=== PATIENT | male | born 1940 | race Caucasian/White ===

== ENCOUNTER → 2016-05-04 | Outpatient (CLI) | payer OTHER ==
[~2016-05-04] MED LIST: ACCL20 PO; ALBUAER2 INH; BUPRTAB PO; ERGO1CAP35 PO; FENO145T26 PO; FINA5TAB PO; FLNIN NAE; FRS/40 PO; HYD10 PO; HYDR-5688 PO; HYDR20TA3 PO; INSDGI SC; LEVO1TAB33 PO; LEVO75TA5 PO; METO25TA3 PO; METO25TA56 PO; MOME200A INH; OXYC1TAB3 PO; POTA-335 PO; POTA20TA16 PO; PRAV40TA2 PO; SPRIN/30 INH; SYMIN/8045 INH; TIOTCAP INH; TRAM-453 PO; VNTHFA/IN INH; ZOLP5TAB6 PO
[2016-05-04 12:56] LABS: ESTIMATED AVERAGE GLUCOSE 177 mg/dl; HA1C FLAG Normal (Normal)
[2016-05-04 13:29] LABS: ALB/GLOB RATIO 0.9 (0.9-2); ALKALINE PHOSPHATASE 57 U/L (45-117); ALT/SGPT 25 U/L (12-78); AST/SGOT 16 U/L (15-37); BLOOD UREA NITROGEN 18 mg/dl (7-18); CARBON DIOXIDE 24 mmol/L (21-32); CHLORIDE 107 mmol/L (98-107); CHOLESTEROL 198 mg/dl (0-200); CHOLESTEROL/HDL RATIO 6.6; GLUCOSE 45 mg/dl (70-99); HDL CHOLESTEROL 30 mg/dl; LDL CHOLESTEROL CALCULATED 134 mg/dl; POTASSIUM 3.5 mmol/L (3.5-5.1); SODIUM 142 mmol/L (136-145); TRIGLYCERIDES 172 mg/dl (0-150); VERY LOW DENSITY LIPOPROT CALC 34 mg/dl
== END | disposition home or self-care (01) ==
LOC: C.LABBFT 09:22
PROVIDERS: ATTEND Internal Medicine
DX: E78.5 Hyperlipidemia, unspecified (principal); I10 Essential (primary) hypertension; E03.9 Hypothyroidism, unspecified; E11.65 Type 2 diabetes mellitus with hyperglycemia; Z86.39 Personal history of other endocrine, nutritional and metabolic disease

== ENCOUNTER → 2016-05-18 | Outpatient (CLI) | payer OTHER ==
--- NOTE | 2016-05-18 12:06 | DIAGNOSTIC IMAGING REPORT ---
CHEST 2 VIEWS ROUTINE CLINICAL HISTORY: Asthma exacerbation. Shortness of breath. COMPARISON STUDY: Chest radiograph October 23, 2015. FINDINGS: A dual lead left pacemaker is unchanged in position. Moderate cardiomegaly is unchanged. There is no evidence of pulmonary edema. No consolidation is identified. A nipple shadow projects over the right lower lung. There are healed right rib fractures. There is no consolidation to suggest pneumonia. IMPRESSION: 1. No acute findings. 2. Stable cardiomegaly. Electronically signed by: Lee Delgado M.D. 05/18/2016 12:04 PM Dictated Date/Time: 05/18/2016 12:03 PM
== END | disposition home or self-care (01) ==
LOC: C.RAD1850 11:48
PROVIDERS: ATTEND Internal Medicine
DX: J45.901 Unspecified asthma with (acute) exacerbation (principal); I51.7 Cardiomegaly

== ENCOUNTER → 2016-05-19 | Outpatient (CLI) | payer OTHER ==
[2016-05-19 15:59] LABS: IMMUNOGLOBULN M 27.3 mg/dL (40-230)
== END | disposition home or self-care (01) ==
LOC: C.LAB1850 13:45
PROVIDERS: ATTEND Internal Medicine Pulmonary Disease
DX: J45.901 Unspecified asthma with (acute) exacerbation (principal); J33.9 Nasal polyp, unspecified; Z88.6 Allergy status to analgesic agent

== ENCOUNTER → 2016-06-21 | Outpatient (CLI) | payer OTHER ==
[~2016-06-21] MED LIST changes: +BACITRACIN 50000 UNIT VIAL ONE; +CEFAZOLIN SOD 1 GM VIAL ONE; +GENTAMICIN SULFATE 40 MG/ML 2 ML VIAL ONE
--- NOTE | 2016-06-21 13:04 | DIAGNOSTIC IMAGING REPORT ---
LEFT KNEE 3 VIEWS HISTORY: Left knee pain. COMPARISON: None. FINDINGS: There is no fracture or dislocation. Suspect a small knee effusion. Vascular calcifications are noted. Mild cartilage space narrowing within the medial compartment of the knee consistent with degenerative change. Tiny marginal osteophytes at the patella. No radiopaque foreign bodies. IMPRESSION: No fractures. Suspect a small knee effusion and mild degenerative changes. Electronically signed by: Silviano Vaughn M.D. 06/21/2016 1:03 PM Dictated Date/Time: 06/21/2016 1:00 PM
== END | disposition home or self-care (01) ==
LOC: C.RAD 11:43
PROVIDERS: ATTEND Internal Medicine
DX: M25.562 Pain in left knee (principal)

== ENCOUNTER 2016-10-26 12:26 | Inpatient (IN) | payer OTHER ==
[~2016-10-26] VITALS: Ht 180.3 cm; Wt 94.8 kg
[~2016-10-26 12:26] MED LIST changes: -BACITRACIN 50000 UNIT VIAL ONE; -BUPRTAB PO; -CEFAZOLIN SOD 1 GM VIAL ONE; -GENTAMICIN SULFATE 40 MG/ML 2 ML VIAL ONE; -HYDR-5688 PO; -HYDR20TA3 PO; -METO25TA3 PO; -POTA20TA16 PO; -SPRIN/30 INH; -SYMIN/8045 INH; -VNTHFA/IN INH
[2016-10-26] MEDS ORDERED: INSDGI SC (13:24)
[2016-10-26] MEDS ORDERED: SYMIN/8045 INH (13:24)
[2016-10-26] MEDS ORDERED: HYDR20TA3 PO (13:24)
[2016-10-26] MEDS ORDERED: SPRIN/30 INH (13:24)
[2016-10-26] MEDS ORDERED: BUPRTAB PO (13:24)
[2016-10-26] MEDS ORDERED: METO25TA3 PO (13:24)
[2016-10-26] MEDS ORDERED: VNTHFA/IN INH (13:24)
[2016-10-26] MEDS ORDERED: POTA20TA16 PO (13:24)
--- NOTE | 2016-10-26 13:53 | EMERGENCY ROOM VISIT NOTE ---
History First contact with patient: 13:28 Chief Complaint: DIZZY Stated Complaint: FALL/HEADACHE Nursing Triage Summary: pt arrives via ALS per ALS he felt dizzy, had a witnessed syncopal episode with a short period of altered mental status he was sweating profusely he states he was feeling sick yesterday and just "Odd." He reported for ALS Headache, Nausea and vomited once , EMS gave him 4 of Zofran and 250Ml of Fluid Pt reports history of fluid around heart for which he had a pacemaker placed he recently had his pacemaker evaluated by MD Escamilla with no new findings pt also reports left ankle pain unsure if that happened during episode or not shoe removed +Pedal Pulse and +Cap Refil History of Present Illness The patient is a 76 year old male who presents to the Emergency Room with complaints of not feeling well over the last 3 weeks. The patient has a history of asthma. He does report some increased shortness of breath. She denies any fever or cough. He denies any chest pain, pressure or heart palpitations. The patient does have a cardiac history. He had a pacemaker placed approximately 3 years ago. The patient saw his primary care physician 2 weeks ago. 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 His pacemaker was checked. No abnormalities were noted. He denies any changes in medications. He does note a poor appetite. He also reports a 10 pound weight loss over the last month or so. He denies any abdominal pain, nausea or vomiting. No diarrhea. The patient reports severe fatigue over the last 2 days. He also reports a syncopal episode today. The event was witnessed. He did not strike his head. He does report some left ankle pain. He does not take any blood thinners. Review of Systems 10 system review performed and negative unless noted in HPI or below Past Medical/Surgical History Medical Problems: (1) Asthma (2) Benign hypertension (3) Chronic congestive heart failure (4) Diabetes mellitus (5) Heart disease Family History Hypertension Social History Smoking Status: Former Smoker Alcohol Use: none Drug Use: none Marital Status: Housing Status: lives with significant other Occupation Status: employed Current/Historical Medications Scheduled Budesonide/Formoterol Fumarate (Symbicort 80/4.5 Inhaler), 2 PUFFS INH BID Bupropion Hcl (Wellbutrin Xl), 150 MG PO DAILY Fenofibrate (Tricor ), 145 MG PO HS Finasteride (Proscar), 5 MG PO QAM Furosemide (Lasix), 40 MG PO QAM Hydrocortisone (Cortef), 10 MG PO QPM Hydrocortisone (Cortef), 20 MG PO QAM Insulin Glargine (Lantus), 55 UNITS SC BID Levofloxacin (Levaquin), 500 MG PO QAM Levothyroxine Sodium (Levothyroxine Sodium), 75 MCG PO QAM Metoprolol Succinate (Toprol Xl), 25 MG PO DAILY Mometasone Furoate-Formoterol (Dulera 200/5 Mcg), 2 PUFFS INH BID Potassium Ext Rel (Klor-Con), 20 MEQ PO DAILY Pravastatin Sodium (Pravastatin Sodium), 1 TAB PO QPM Tiotropium Collins (Spiriva Handihaler), 1 CAP INH DAILY Zafirlukast (Zafirlukast), 20 MG PO BID Scheduled PRN Albuterol Hfa (Ventolin Hfa), 2 PUFFS INH QID PRN for Shortness of Breath Oxycodone Ir (Roxicodone Ir), 5 MG PO Q6H PRN for Pain Tramadol Hcl (Ultram), 50 MG PO Q8H PRN for Pain Zolpidem Tartrate (Zolpidem Tartrate), 1 TAB PO HS PRN for Sleep Physical Exam Vital Signs Date Time Temp Pulse Resp B/P (MAP) Pulse Ox O2 Delivery O2 Flow Rate FiO2 10/26/16 18:50 88 18 160/69 97 Room Air 10/26/16 18:19 85 10/26/16 16:51 84 10/26/16 16:10 86 16 157/68 98 Nebulizer 10/26/16 15:46 96 Nasal Cannula 2.0 10/26/16 15:29 88 20 96 Nasal Cannula 2.0 10/26/16 14:15 82 20 138/78 97 Nasal Cannula 3.0 10/26/16 13:46 97 Room Air 2.0 10/26/16 13:46 98 Nasal Cannula 2.0 10/26/16 12:50 79 10/26/16 12:35 37.0 84 16 165/97 98 Room Air Physical Exam VITALS: Vitals are noted on the nurse's note and reviewed by myself. Vital signs stable. GENERAL: 76-year-old male, in no acute distress, nondiaphoretic, well-developed well-nourished. SKIN: The skin was without rashes, HEAD: Normocephalic atraumatic. EYES: Extraocular movements intact. MOUTH: Mucous membranes moist. NECK: No lymphadenopathy. Cervical spine is nontender. No JVD. HEART: Regular rate and rhythm without murmurs gallops or rubs. LUNGS: Decreased breath sounds at the bases bilaterally. No wheezing or rhonchi. Mild tachypnea noted. ABDOMEN: Positive bowel sounds x 4.Soft, nontender, without organomegaly. No guarding or rebound tenderness. MUSCULOSKELETAL: No muscle atrophy, erythema, or edema noted. Slight tenderness to palpation noted over the lateral malleolus on the left lower extremity. No significant edema. Strength 5/5 throughout. NEURO: Patient was alert and oriented to person place and time. Normal sensation to touch. No focal neurological deficits. Medical Decision & Procedures ER Provider Diagnostic Interpretation: CHEST ONE VIEW PORTABLE CLINICAL HISTORY: Dizziness and SOB COMPARISON STUDY: 05/18/2016 FINDINGS: The heart is enlarged. There is a left subclavian dual-chamber central venous pacemaker present. There is no failure. There is no lobar consolidation. Linear basilar opacities are felt to be atelectatic.[ IMPRESSION: No active disease in the chest. Electronically signed by: Star Pro M.D. 10/26/2016 1:59 PM Dictated Date/Time: 10/26/2016 1:58 PM The status of this report is Signed. Draft = Not yet reviewed or approved by Radiologist. Signed = Reviewed and approved by Radiologist. <AttendingPhy></AttendingPhy> <FamilyPhy>Maegan Delgado M.D.</FamilyPhy > <PrimaryPhy>Maegan Delgado M.D.</PrimaryPhy> <UnitNumber>[id number]</ UnitNumber> <VisitNumber>[id number]</VisitNumber> <PatientName>BARBARA NAVARRO</PatientName> <DateOfBirth>1940</DateOfBirth> <Location>[facility]</ Location> <ServiceDate>10/26/16</ServiceDate> <MNE>ESINDI</MNE> <OrderingPhy>ED , PROTOCOL</OrderingPhy> <OrderingPhyMNE>f rep ord dr gardiner</OrderingPhyMNE> < DictatingPhyMNE>f rep dict dr gardiner</DictatingPhyMNE> <CCListMNE>f rep ct mne</ CCListMNE> <AdmittingPhyMNE>f pt admit dr gardiner</AdmittingPhyMNE> <AttendingPhyMNE >f pt attend dr gardiner</AttendingPhyMNE> <ConsultingPhyMNE>f pt consult dr gardiner</ConsultingPhyMNE> <FamilyPhyMNE>f pt fam dr gardiner</FamilyPhyMNE> <OtherPhyMNE>f pt other dr gardiner</OtherPhyMNE> < PrimaryPhyMNE>f pt prim care dr gardiner</PrimaryPhyMNE> <ReferringPhyMNE>f pt referring dr gardiner</ReferringPhyMNE> Laboratory Results 10/26/16 13:58 Red Blood Count 5.21, Mean Corpuscular Volume 87.7, Mean Corpuscular Hemoglobin 29.6, Mean Corpuscular Hemoglobin Concent 33.7, Mean Platelet Volume 10.2, Neutrophils (%) (Auto) 73.8, Lymphocytes (%) (Auto) 12.1, Monocytes (%) (Auto) 6.7, Eosinophils (%) (Auto) 5.6, Basophils (%) (Auto) 0.2, Neutrophils # (Auto) 9.09, Lymphocytes # (Auto) 1.49, Monocytes # (Auto) 0.82, Eosinophils # (Auto) 0.69, Basophils # (Auto) 0.03 10/26/16 13:58 Test 10/26/16 13:58 10/26/16 15:46 White Blood Count 12.32 K/uL (4.8-10.8) Red Blood Count 5.21 M/uL (4.7-6.1) Hemoglobin 15.4 g/dL (14.0-18.0) Hematocrit 45.7 % (42-52) Mean Corpuscular Volume 87.7 fL (80-100) Mean Corpuscular Hemoglobin 29.6 pg (25-34) Mean Corpuscular Hemoglobin Concent 33.7 g/dl (32-36) Platelet Count 319 K/uL (130-400) Mean Platelet Volume 10.2 fL (7.4-10.4) Neutrophils (%) (Auto) 73.8 % Lymphocytes (%) (Auto) 12.1 % Monocytes (%) (Auto) 6.7 % Eosinophils (%) (Auto) 5.6 % Basophils (%) (Auto) 0.2 % Neutrophils # (Auto) 9.09 K/uL (1.4-6.5) Lymphocytes # (Auto) 1.49 K/uL (1.2-3.4) Monocytes # (Auto) 0.82 K/uL (0.11-0.59) Eosinophils # (Auto) 0.69 K/uL (0-0.5) Basophils # (Auto) 0.03 K/uL (0-0.2) RDW Standard Deviation 53.1 fL (36.4-46.3) RDW Coefficient of Variation 16.4 % (11.5-14.5) Immature Granulocyte % (Auto) 1.6 % Immature Granulocyte # (Auto) 0.20 K/uL (0.00-0.02) Prothrombin Time 11.1 SECONDS (9.0-12.0) Prothromb Time International Ratio 1.0 (0.9-1.1) Activated Partial Thromboplast Time 27.5 SECONDS (21.0-31.0) Partial Thromboplastin Ratio 1.1 Anion Gap 8.0 mmol/L (3-11) Est Creatinine Clear Calc Drug Dose 46.1 ml/min Estimated GFR () 47.1 Estimated GFR (Non- 40.7 BUN/Creatinine Ratio 10.6 (10-20) Calcium Level 9.7 mg/dl (8.5-10.1) Total Bilirubin 0.5 mg/dl (0.2-1) Aspartate Amino Transf (AST/SGOT) 9 U/L (15-37) Alanine Aminotransferase (ALT/SGPT) 22 U/L (12-78) Alkaline Phosphatase 66 U/L (45-117) Troponin I < 0.015 ng/ml (0-0.045) Pro-B-Type Natriuretic Peptide 1891 pg/ml (0-1800) Total Protein 7.7 gm/dl (6.4-8.2) Albumin 3.7 gm/dl (3.4-5.0) Globulin 4.0 gm/dl (2.5-4.0) Albumin/Globulin Ratio 0.9 (0.9-2) Arterial Blood pH 7.40 (7.35-7.45) Arterial Blood Partial Pressure CO2 39 mmHg (35-46) Arterial Blood Partial Pressure O2 186 mm/Hg (80-95) Arterial Blood HCO3 24 mmol/L (19-24) Arterial Blood Oxygen Saturation 99.5 % (90-95) Arterial Blood Base Excess -1.0 mEq/L (-9-1.8) Arterial Blood Gas Delivery 2.5L O2 Timothy Test POS (POS) Medications Administered Medications (Trade) Dose Ordered Sig/Laila Route Start Time Stop Time Status Last Admin Dose Admin Albuterol/ Ipratropium (Duoneb) 12 ml ONE ONCE INH 10/26/16 15:00 10/26/16 15:01 DC 10/26/16 15:10 12 ML ECG Comparison ECG Date: Change: BARBARA NAVARRO ID:[id number] 26-OCT-2016 12:50:05 [facility] Atrial-paced rhythm with prolonged AV conduction in a pattern of bigeminy Left axis deviation Right bundle branch block Left ventricular hypertrophy with repolarization abnormality Inferior infarct (cited on or before 23-OCT-2015) Abnormal ECG When compared with ECG of 23-OCT-2015 22:38, Electronic atrial pacemaker has replaced Sinus rhythm bigeminy now present ED Course Patient was seen and examined Vital signs including blood pressure were reviewed medications list was verified with patient Labs were obtained, and a saline lock was established Imaging was performed and reviewed The patient was given an hour-long DuoNeb Upon reassessment, the patient is still hypoxic. The case was discussed with the [facility] [address] hospitalist. They agreed to admit the patient for further workup. Medical Decision Differential diagnosis: Asthma exacerbation, acute hypoxic restrictive failure, pulmonary embolus, Acute myocardial infarction, cardiac arrhythmia, anemia, pneumonia, bronchitis, pericarditis, electrolyte imbalance This patient is a pleasant 76-year-old male that presented to the emergency department with complaints of severe fatigue, syncopal episode and shortness of breath for the last few weeks. On exam, the patient did not have any significant wheezing. He was found to be hypoxic in the low 80s on room air. He does not wear oxygen at home. His chest x-ray did not show any signs of pneumonia. Unfortunately, the patient's renal function is slightly abnormal; therefore, I could not do a CT of the chest today to rule out PE. Ultrasound of his lower extremities was performed, and negative for DVT. Given the patient's acute respiratory failure with hypoxia, the patient will need to be admitted for further workup and treatment. Blood Pressure Screening Blood pressure disposition: Elevated BP felt to be situational Impression Primary Impression: Acute respiratory failure with hypoxia Departure Information Referrals Maegan Delgado M.D. (PCP) Patient Instructions My [facility]
--- NOTE | 2016-10-26 14:00 | DIAGNOSTIC IMAGING REPORT ---
CHEST ONE VIEW PORTABLE CLINICAL HISTORY: Dizziness and SOB COMPARISON STUDY: 05/18/2016 FINDINGS: The heart is enlarged. There is a left subclavian dual-chamber central venous pacemaker present. There is no failure. There is no lobar consolidation. Linear basilar opacities are felt to be atelectatic.[ IMPRESSION: No active disease in the chest. Electronically signed by: Star Pro M.D. 10/26/2016 1:59 PM Dictated Date/Time: 10/26/2016 1:58 PM
[2016-10-26 14:13] LABS: BASO % 0.2 %; BASO ABS # 0.03 K/uL (0-0.2); COMPLETE YES; EOS % 5.6 %; HEMATOCRIT 45.7 % (42-52); IG% 1.6 %; LYMPH % 12.1 %; LYMPH ABS # 1.49 K/uL (1.2-3.4); MEAN CELL VOLUME 87.7 fL (80-100); MEAN CORPUSCULAR HEMOGLOBIN 29.6 pg (25-34); MEAN CORPUSCULAR HGB CONC 33.7 g/dl (32-36); MEAN PLATELET VOLUME 10.2 fL (7.4-10.4); MONO % 6.7 %; NEUT % 73.8 %; PLATELET COUNT 319 K/uL (130-400); RED BLOOD COUNT 5.21 M/uL (4.7-6.1); WHITE BLOOD COUNT 12.32 K/uL (4.8-10.8)
[2016-10-26 14:24] LABS: PARTIAL THROMBOPLASTIN RATIO 1.1; PROTHROMBIN TIME (PATIENT) 11.1 SECONDS (9.0-12.0)
[2016-10-26 14:25] LABS: ALT/SGPT 22 U/L (12-78); AST/SGOT 9 U/L (15-37); BLOOD UREA NITROGEN 17 mg/dl (7-18); BUN/CREATININE RATIO 10.6 (10-20); CALCIUM 9.7 mg/dl (8.5-10.1); CARBON DIOXIDE 25 mmol/L (21-32); CHLORIDE 109 mmol/L (98-107); GLUCOSE 87 mg/dl (70-99); SODIUM 142 mmol/L (136-145)
[2016-10-26 14:39] LABS: ALB/GLOB RATIO 0.9 (0.9-2); ALKALINE PHOSPHATASE 66 U/L (45-117)
--- NOTE | 2016-10-26 14:45 | EMERGENCY ROOM VISIT NOTE ---
ED Visit Note First contact with patient: 13:28 I have seen and examined this patient with Joy Corona and generally agree with the treatment plan as discussed. Problem List Medical Problems: (1) Asthma Status: Chronic (2) Benign hypertension Status: Chronic (3) Chronic congestive heart failure Status: Chronic (4) Diabetes mellitus Status: Chronic (5) Heart disease Status: Chronic Current/Historical Medications Scheduled Budesonide/Formoterol Fumarate (Symbicort 80/4.5 Inhaler), 2 PUFFS INH BID Bupropion Hcl (Wellbutrin Xl), 150 MG PO DAILY Fenofibrate (Tricor ), 145 MG PO HS Finasteride (Proscar), 5 MG PO QAM Furosemide (Lasix), 40 MG PO QAM Hydrocortisone (Cortef), 10 MG PO QPM Hydrocortisone (Cortef), 20 MG PO QAM Insulin Glargine (Lantus), 55 UNITS SC BID Levofloxacin (Levaquin), 500 MG PO QAM Levothyroxine Sodium (Levothyroxine Sodium), 75 MCG PO QAM Metoprolol Succinate (Toprol Xl), 25 MG PO DAILY Mometasone Furoate-Formoterol (Dulera 200/5 Mcg), 2 PUFFS INH BID Potassium Ext Rel (Klor-Con), 20 MEQ PO DAILY Pravastatin Sodium (Pravastatin Sodium), 1 TAB PO QPM Tiotropium Roby (Spiriva Handihaler), 1 CAP INH DAILY Zafirlukast (Zafirlukast), 20 MG PO BID Scheduled PRN Albuterol Hfa (Ventolin Hfa), 2 PUFFS INH QID PRN for Shortness of Breath Oxycodone Ir (Roxicodone Ir), 5 MG PO Q6H PRN for Pain Tramadol Hcl (Ultram), 50 MG PO Q8H PRN for Pain Zolpidem Tartrate (Zolpidem Tartrate), 1 TAB PO HS PRN for Sleep Allergies Coded Allergies: Aspirin (Verified Allergy, Unknown, DOES NOT TAKE D/T ASTHMA, 10/23/15) Vital Signs Date Time Temp Pulse Resp B/P (MAP) Pulse Ox O2 Delivery O2 Flow Rate FiO2 10/26/16 14:15 82 20 138/78 97 Nasal Cannula 3.0 10/26/16 13:46 97 Room Air 2.0 10/26/16 13:46 98 Nasal Cannula 2.0 10/26/16 12:50 79 10/26/16 12:35 37.0 84 16 165/97 98 Room Air Laboratory Results 10/26/16 13:58 Red Blood Count 5.21, Mean Corpuscular Volume 87.7, Mean Corpuscular Hemoglobin 29.6, Mean Corpuscular Hemoglobin Concent 33.7, Mean Platelet Volume 10.2, Neutrophils (%) (Auto) 73.8, Lymphocytes (%) (Auto) 12.1, Monocytes (%) (Auto) 6.7, Eosinophils (%) (Auto) 5.6, Basophils (%) (Auto) 0.2, Neutrophils # (Auto) 9.09, Lymphocytes # (Auto) 1.49, Monocytes # (Auto) 0.82, Eosinophils # (Auto) 0.69, Basophils # (Auto) 0.03 10/26/16 13:58 Test 10/26/16 13:58 White Blood Count 12.32 K/uL (4.8-10.8) Red Blood Count 5.21 M/uL (4.7-6.1) Hemoglobin 15.4 g/dL (14.0-18.0) Hematocrit 45.7 % (42-52) Mean Corpuscular Volume 87.7 fL (80-100) Mean Corpuscular Hemoglobin 29.6 pg (25-34) Mean Corpuscular Hemoglobin Concent 33.7 g/dl (32-36) Platelet Count 319 K/uL (130-400) Mean Platelet Volume 10.2 fL (7.4-10.4) Neutrophils (%) (Auto) 73.8 % Lymphocytes (%) (Auto) 12.1 % Monocytes (%) (Auto) 6.7 % Eosinophils (%) (Auto) 5.6 % Basophils (%) (Auto) 0.2 % Neutrophils # (Auto) 9.09 K/uL (1.4-6.5) Lymphocytes # (Auto) 1.49 K/uL (1.2-3.4) Monocytes # (Auto) 0.82 K/uL (0.11-0.59) Eosinophils # (Auto) 0.69 K/uL (0-0.5) Basophils # (Auto) 0.03 K/uL (0-0.2) RDW Standard Deviation 53.1 fL (36.4-46.3) RDW Coefficient of Variation 16.4 % (11.5-14.5) Immature Granulocyte % (Auto) 1.6 % Immature Granulocyte # (Auto) 0.20 K/uL (0.00-0.02) Prothrombin Time 11.1 SECONDS (9.0-12.0) Prothromb Time International Ratio 1.0 (0.9-1.1) Activated Partial Thromboplast Time 27.5 SECONDS (21.0-31.0) Partial Thromboplastin Ratio 1.1 Anion Gap 8.0 mmol/L (3-11) Est Creatinine Clear Calc Drug Dose 46.1 ml/min Estimated GFR () 47.1 Estimated GFR (Non- 40.7 BUN/Creatinine Ratio 10.6 (10-20) Calcium Level 9.7 mg/dl (8.5-10.1) Total Bilirubin 0.5 mg/dl (0.2-1) Aspartate Amino Transf (AST/SGOT) 9 U/L (15-37) Alanine Aminotransferase (ALT/SGPT) 22 U/L (12-78) Alkaline Phosphatase 66 U/L (45-117) Troponin I < 0.015 ng/ml (0-0.045) Pro-B-Type Natriuretic Peptide 1891 pg/ml (0-1800) Total Protein 7.7 gm/dl (6.4-8.2) Albumin 3.7 gm/dl (3.4-5.0) Globulin 4.0 gm/dl (2.5-4.0) Albumin/Globulin Ratio 0.9 (0.9-2) Departure Information Referrals Maegan Delgado M.D. (PCP) Patient Instructions My [facility]
[2016-10-26] MEDS ORDERED: ALBUT/IPRATROP 3MG/0.5MG NEB 3 ML VIAL INH ONE (15:00)
[2016-10-26 15:29] VITALS: PULSE 88; O2SAT 96
[2016-10-26 15:46] VITALS: O2SAT 96; Ht 180.3 cm; Wt 94.8 kg
[2016-10-26 16:06] LABS: ARTERIAL BLD GAS O2 SATURATION 99.5 % (90-95); ARTERIAL BLOOD GAS HCO3 24 mmol/L (19-24); ARTERIAL BLOOD GAS PO2 186 mm/Hg (80-95)
[2016-10-26 16:07] LABS: ALLEN TEST POS (POS); O2 ADMINISTRATION 2.5L O2
--- NOTE | 2016-10-26 16:07 | DIAGNOSTIC IMAGING REPORT ---
LEFT ANKLE MIN 3 VIEWS ROUTINE CLINICAL HISTORY: Left ankle pain status post trauma COMPARISON: None. DISCUSSION: There are vascular calcifications present. No fractures or subluxations are visualized. There are no erosive or destructive changes. IMPRESSION: 1. No acute fractures 2. Vascular calcifications Electronically signed by: Star Pro M.D. 10/26/2016 4:05 PM Dictated Date/Time: 10/26/2016 4:05 PM
--- NOTE | 2016-10-26 17:34 | DIAGNOSTIC IMAGING REPORT ---
VENOUS DOPPLER LW EXT BILAT HISTORY: Pain. Edema. hypoxic ? DVT COMPARISON STUDY: None. FINDINGS: There is normal compressibility, flow, and augmentation within the bilateral lower extremity deep venous systems. IMPRESSION: No DVT within the right or left lower extremity. The above report was generated using voice recognition software. It may contain grammatical, syntax or spelling errors. Electronically signed by: Kelby Solomon M.D. 10/26/2016 5:33 PM Dictated Date/Time: 10/26/2016 5:32 PM
[2016-10-26] MEDS ORDERED: ONDANSETRON INJ 2 MG/ML 2 ML VIAL IV PRN (21:45)
[2016-10-26] MEDS ORDERED: ZOLPIDEM TARTRATE 5 MG TAB PO PRN (21:45)
[2016-10-26] MEDS ORDERED: MAGNESIUM HYDROXIDE SUSP 30 ML UDC PO PRN (21:45)
[2016-10-26] MEDS ORDERED: OXYCODONE HCL IR 5 MG TAB (IMMEDIATE RELEASE) PO PRN (21:45)
[2016-10-26] MEDS ORDERED: TRAMADOL HCL 50 MG TAB PO PRN (21:45)
[2016-10-26] MEDS ORDERED: ALUMINUM/MAGNESIUM/SIMETH (MAALOX MAX) 30 ML UDC PO PRN (21:45)
[2016-10-26] MEDS ORDERED: ALBUTEROL HFA 8 GM INHALER INH PRN (21:45)
[2016-10-26] MEDS ORDERED: POLYETHYLENE (MIRALAX) 17 GM PACK PO PRN (21:45)
[2016-10-26] MEDS ORDERED: ACETAMINOPHEN 325 MG TAB PO PRN (21:45)
--- NOTE | 2016-10-26 21:59 | History and Physical ---
History & Physical Date & Time of Service: Oct 26, 2016 at 21:59 Chief Complaint: Fall/Headache Primary Care Physician: Maegan Delgado M.D. History of Present Illness Source: patient Mr Greer is a 68-year-old male with history of asthma, diabetes, s/p pacemaker placement who presents with 3 weeks of feeling unwell. He reports he feels like he cannot get a deep breath in. This is made him feel incredibly fatigued and he is unable to do his usual ADLs. About 2 weeks ago he saw his PCP who gave him a prescription for Levaquin and told her to fill it if he was worsening, but he did not fill it. He also saw Dr. Haley his pitch worker who interrogated his pacemaker and reported it was all normal. Earlier today he was with his great-grandson and she also had someone over at his house helping with some housework. He was in the driveway grading is present and then collapsed. The ambulance was called. He woke up and still just felt short of breath. At the moment after nebulizer treatment he feels a little better but not entirely. He reports he never smoked. 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 He reports he was diagnosed with asthma many years ago, and takes multiple inhalers. Over the last few weeks he has been using them on does not find them to be helpful. He does not wear oxygen at home , but has required it since being in the ER. Past Medical/Surgical History Medical Problems: (1) Asthma Status: Chronic (2) Benign hypertension Status: Chronic (3) Chronic congestive heart failure Status: Chronic (4) Diabetes mellitus Status: Chronic (5) Heart disease Status: Chronic Family History Hypertension Social History Smoking Status: Never Smoker Smokeless Tobacco Use: No Alcohol Use: socially Drug Use: none Marital Status: Housing status: lives with family Occupational Status: employed Immunizations History of Influenza Vaccine: Yes Influenza Vaccine Date: Jan 02, 2013 History of Tetanus Vaccine?: UTD History of Pneumococcal: Yes Pneumococcal Date: Jun 18, 2011 History of Hepatitis B Vaccine: No Multi-Drug Resistant Organisms History of MDRO: No Allergies Coded Allergies: Aspirin (Verified Allergy, Unknown, DOES NOT TAKE D/T ASTHMA, 10/23/15) Home Medications Scheduled Budesonide/Formoterol Fumarate (Symbicort 80/4.5 Inhaler), 2 PUFFS INH BID Bupropion Hcl (Wellbutrin Xl), 150 MG PO DAILY Fenofibrate (Tricor ), 145 MG PO HS Finasteride (Proscar), 5 MG PO QAM Furosemide (Lasix), 40 MG PO QAM Hydrocortisone (Cortef), 10 MG PO QPM Hydrocortisone (Cortef), 20 MG PO QAM Insulin Glargine (Lantus), 55 UNITS SC BID Levofloxacin (Levaquin), 500 MG PO QAM Levothyroxine Sodium (Levothyroxine Sodium), 75 MCG PO QAM Metoprolol Succinate (Toprol Xl), 25 MG PO DAILY Mometasone Furoate-Formoterol (Dulera 200/5 Mcg), 2 PUFFS INH BID Potassium Ext Rel (Klor-Con), 20 MEQ PO DAILY Pravastatin Sodium (Pravastatin Sodium), 1 TAB PO QPM Tiotropium Vendor (Spiriva Handihaler), 1 CAP INH DAILY Zafirlukast (Zafirlukast), 20 MG PO BID Scheduled PRN Albuterol Hfa (Ventolin Hfa), 2 PUFFS INH QID PRN for Shortness of Breath Oxycodone Ir (Roxicodone Ir), 5 MG PO Q6H PRN for Pain Tramadol Hcl (Ultram), 50 MG PO Q8H PRN for Pain Zolpidem Tartrate (Zolpidem Tartrate), 1 TAB PO HS PRN for Sleep Review of Systems See HPI for pertinent positives & negatives. A total of 10 systems reviewed and were otherwise negative. Physical Exam Vital Signs Date Time Temp Pulse Resp B/P (MAP) Pulse Ox O2 Delivery O2 Flow Rate FiO2 10/26/16 20:50 87 18 147/70 97 Room Air 10/26/16 18:50 88 18 160/69 97 Room Air 10/26/16 18:19 85 10/26/16 16:51 84 10/26/16 16:10 86 16 157/68 98 Nebulizer 10/26/16 15:46 96 Nasal Cannula 2.0 10/26/16 15:29 88 20 96 Nasal Cannula 2.0 10/26/16 14:15 82 20 138/78 97 Nasal Cannula 3.0 10/26/16 13:46 97 Room Air 2.0 10/26/16 13:46 98 Nasal Cannula 2.0 10/26/16 12:50 79 10/26/16 12:35 37.0 84 16 165/97 98 Room Air General Appearance: WD/WN, + mild distress, + obese Head: normocephalic, atraumatic Eyes: normal inspection, PERRL ENT: hearing grossly normal Neck: supple, no JVD Respiratory/Chest: + pertinent finding (no audible wheeze, but pt has poor inspiratory effort.) Cardiovascular: regular rate, rhythm, no murmur, normal peripheral pulses Abdomen/GI: normal bowel sounds, non tender, soft Back: no CVA tenderness, no muscle spasm Extremities/Musculoskelatal: no calf tenderness, no pedal edema Neurologic/Psych: no motor/sensory deficits, alert Skin: no rash Diagnostics Laboratory Results Results Past 24 Hours Test 10/26/16 13:58 10/26/16 15:46 Range/Units White Blood Count 12.32 4.8-10.8 K/uL Red Blood Count 5.21 4.7-6.1 M/uL Hemoglobin 15.4 14.0-18.0 g/dL Hematocrit 45.7 42-52 % Mean Corpuscular Volume 87.7 80-100 fL Mean Corpuscular Hemoglobin 29.6 25-34 pg Mean Corpuscular Hemoglobin Concent 33.7 32-36 g/dl Platelet Count 319 130-400 K/uL Mean Platelet Volume 10.2 7.4-10.4 fL Neutrophils (%) (Auto) 73.8 % Lymphocytes (%) (Auto) 12.1 % Monocytes (%) (Auto) 6.7 % Eosinophils (%) (Auto) 5.6 % Basophils (%) (Auto) 0.2 % Neutrophils # (Auto) 9.09 1.4-6.5 K/uL Lymphocytes # (Auto) 1.49 1.2-3.4 K/uL Monocytes # (Auto) 0.82 0.11-0.59 K/uL Eosinophils # (Auto) 0.69 0-0.5 K/uL Basophils # (Auto) 0.03 0-0.2 K/uL RDW Standard Deviation 53.1 36.4-46.3 fL RDW Coefficient of Variation 16.4 11.5-14.5 % Immature Granulocyte % (Auto) 1.6 % Immature Granulocyte # (Auto) 0.20 0.00-0.02 K/uL Prothrombin Time 11.1 9.0-12.0 SECONDS Prothromb Time International Ratio 1.0 0.9-1.1 Activated Partial Thromboplast Time 27.5 21.0-31.0 SECONDS Partial Thromboplastin Ratio 1.1 Sodium Level 142 136-145 mmol/L Potassium Level 4.0 3.5-5.1 mmol/L Chloride Level 109 98-107 mmol/L Carbon Dioxide Level 25 21-32 mmol/L Anion Gap 8.0 3-11 mmol/L Blood Urea Nitrogen 17 7-18 mg/dl Creatinine 1.60 0.60-1.40 mg/dl Est Creatinine Clear Calc Drug Dose 46.1 ml/min Estimated GFR () 47.1 Estimated GFR (Non- 40.7 BUN/Creatinine Ratio 10.6 10-20 Random Glucose 87 70-99 mg/dl Calcium Level 9.7 8.5-10.1 mg/dl Total Bilirubin 0.5 0.2-1 mg/dl Aspartate Amino Transf (AST/SGOT) 9 15-37 U/L Alanine Aminotransferase (ALT/SGPT) 22 12-78 U/L Alkaline Phosphatase 66 45-117 U/L Troponin I < 0.015 0-0.045 ng/ml Pro-B-Type Natriuretic Peptide 1891 0-1800 pg/ml Total Protein 7.7 6.4-8.2 gm/dl Albumin 3.7 3.4-5.0 gm/dl Globulin 4.0 2.5-4.0 gm/dl Albumin/Globulin Ratio 0.9 0.9-2 Arterial Blood pH 7.40 7.35-7.45 Arterial Blood Partial Pressure CO2 39 35-46 mmHg Arterial Blood Partial Pressure O2 186 80-95 mm/Hg Arterial Blood HCO3 24 19-24 mmol/L Arterial Blood Oxygen Saturation 99.5 90-95 % Arterial Blood Base Excess -1.0 -9-1.8 mEq/L Arterial Blood Gas Delivery 2.5L O2 Timothy Test POS POS Diagnostic Radiology CXR: IMPRESSION: No active disease in the chest. VENOUS DUPLEX: IMPRESSION: No DVT within the right or left lower extremity. ANKLE XRAY: IMPRESSION: 1. No acute fractures 2. Vascular calcifications Impression Assessment and Plan 68-year-old male with asthma who presents with about 3 weeks of fatigue and shortness of breath, with new O2 requirement. Differential includes asthma exacerbation, bronchitis, underlying lung disease, PE, sleep apnea, pneumonia. Acute hypoxic respiratory failure, requiring 2-3L nasal cannula O2 - Duonebs q3h when awake and PRN shortness of breath - Pulmicort nebulizers - Continue home inhalers as well (Spiriva, Breo) - Due to poor renal function, we'll not obtain CT for PE, but we'll obtain a CT without contrast to evaluate for interstitial lung disease. - Nocturnal pulse ox - Will consider pulmonary consult depending on results of CT scan. Type 2 Diabetes - Will check an A1c - Continue home Lantus regime - Sliding scale meal coverage Hyperlipidemia - Continue Fenofibrate & Statin ?Hx of adrenal insufficiency - Continue home Cortef dose, it is unclear how long he has been on this Back pain - Continue home Oxy IR and Tramadol Dispo: Tele Admit to Tele Code status: Full Attending Addendum: I have physically seen and examined this patient, have supervised the medical residents activities, and agree with the H&P as noted above with the following exceptions: NONE The patient is awake, well-developed and adequately nourished, alert and oriented 3, normocephalic and atraumatic, lying in bed and in mild acute distress. HEENT--PERRL, EOMI, mucous membranes and oropharynx dry. Neck--supple, no JVD bruits, thyroid normal, trachea midline, no adenopathy. Heart--normal S1 and S2, no extra beats, no murmurs, rubs or gallops. Lungs--clear bilaterally but decreased breath sounds throughout no respiratory distress, no accessory muscle use. Abdomen--normal bowel sounds and soft, nontender and nondistended, no hernias or masses, no organomegaly, and obese. Extremities--no cyanosis, clubbing or edema. There are good distal pulses b/l. Dermatologic--normal skin turgor, normal color, warm and dry, no abnormal lymph nodes, no rash. Neurologic--cranial nerves II through XII grossly intact. Rheumatologic--normal range of motion, nontender, muscles and joints. Psychiatric--normal affect. Assessment and Plan: 1. Acute respiratory failure with hypoxia--admit to the telemetry unit for close oxygen monitoring. He works at the [employer], with exposures to cold dust and dust in general. Would be concerned about possible causes of interstitial lung disease. Place on do nebs every 3 hours while awake and every 2 hours when necessary. Pulmicort 0.5 mg inhaled twice a day. His inhalers are not likely helpful as I doubt they can take a deep enough breath to make them useful. We will hold his Dulera, Symbicort, and Spiriva. Continue Zafirlukast 20 mg by mouth twice a day. Adrenal insufficiency--presently on hydrocortisone 20 mg by mouth every morning and 10 mg by mouth every afternoon. If shows signs of worsening, and change 20 mg by mouth twice a day, or place on hydrocortisone 100 mg IV every 8 hours. Consult pulmonology for underlying causes associated with his profession. Level of Care Telemetry Advanced Directives Existing Advance Directive: No Existing Living Will: Yes Existing Power of Industrial Relations Officer: Yes (EMILY BLOUNT ) Resuscitation Status FULL RESUSCITATION VTE Prophylaxis VTE Risk Assessment Done? Y/N: Yes Risk Level: Moderate Given or contraindicated: SCD's Social Service Consult None Apply Resident Tracking Resident Involvement: Resident Care Provided Care Provided: Adult Hospital Medicine
[2016-10-26] MEDS ORDERED: DEXTROSE 50% 50 ML SYR IV PRN (22:00)
[2016-10-26] MEDS ORDERED: GLUCOSE 10 TABS/TUBE PO PRN (22:00)
[2016-10-26] MEDS ORDERED: GLUCOSE 40% GEL 15 GM TUBE PO PRN (22:00)
[2016-10-26] MEDS ORDERED: GLUCAGON FOR INJ 1 MG VIAL SQ PRN (22:00)
[2016-10-26 22:27] VITALS: BP 155/87; PULSE 78; TEMP 36.8; O2SAT 99
[2016-10-26] MEDS ORDERED: BUDESONIDE 0.5 MG/2 ML VIAL (PULMICORT) INH STA (22:32)
--- NOTE | 2016-10-26 22:55 | DIAGNOSTIC IMAGING REPORT ---
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 TECHNIQUE: Multiaxial CT images of the chest were performed without contrast. A dose lowering technique was utilized adhering to the principles of ALARA. COMPARISON: Chest radiograph 10/26/2016, CT abdomen and pelvis 04/04/2012. FINDINGS: No dominant thyroid nodule is seen. Left pectoral pacer is present with leads overlying the right atrial appendage and right ventricle. There is multichamber cardiac enlargement which is moderate. There is a trace pericardial effusion. Three-vessel distribution coronary arterial calcifications are present. There is moderate atherosclerotic plaquing of the thoracic aorta. There is no pathologic adenopathy of the chest identified. There is no pneumothorax or pleural effusion. Subsegmental linear and groundglass opacities of the lung bases are seen suggesting atelectasis with areas of pleural parenchymal scarring. There is mild subpleural reticulation present within the left upper lobe suggesting additional scarring. There is a 6 x 4 mm noncalcified pulmonary nodule the lateral basal segment left lower lobe. Pleural-based nodularity of the inferior segment lingula measuring up to 7 mm suggest atelectasis or scarring. 2 mm noncalcified pulmonary nodule is present within the superior segment right lower lobe. No significant fibrosis, fernando ectasis or honeycombing identified. Central airways are patent. There are scattered calcifications throughout the splenic parenchyma. Focal fat stranding or alternatively a renal angiomyolipoma seen adjacent to the superior pole left kidney, 1.7 x 1.0 cm. Unchanged from comparison. Soft tissues are unremarkable. Multiple remote right-sided rib fractures are noted. Remote appearing Schmorl's nodes are seen throughout the thoracic spine. IMPRESSION: 1. No acute cardiopulmonary process. 2. Minimal pleural parenchymal scarring and subpleural reticulation with areas of subsegmental atelectasis, notably involving the lung bases. No significant fibrotic changes, bronchiectasis or honeycombing. 3. Noncalcified pulmonary nodules of the lungs are seen, largest of which involves the lateral basal segment left lower lobe, 6 x 4 mm. 4. Additional incidental findings as above. Please refer to below summary of Fleischner criteria recommendations for follow-up of incidental CT nodules (Frederick Vergara, Guidelines for management of small pulmonary nodules detected on CT scans: A statement from the Fleischner Society, Radiology 237: [phone].) SOLID NODULES Multiple nodules size: <6 mm * Low risk patients: no routine follow-up * high risk patients: optional CT at 12 months Note: newly detected indeterminate nodule in persons 35 years of age or older. * Low risk patients: minimal or absent history of smoking and/or other known risk factors * high risk patients: history of smoking or of other known risk factors (e.g. first degree relative with lung cancer, or exposure to asbestos, radon, uranium) * if a nodule up to 8 mm is partly solid or is ground glass further follow-up is required after 24 months to exclude possible slow growing adenocarcinoma (LALIT) The above report was generated using voice recognition software. It may contain grammatical, syntax or spelling errors. Electronically signed by: Obey Emerson M.D. 10/26/2016 10:54 PM Dictated Date/Time: 10/26/2016 10:44 PM
[2016-10-27] VITALS (13 sets, daily range): BP systolic 116–155; BP diastolic 54–78; PULSE 60–83; TEMP 36.5–36.9; O2SAT 94–99
[2016-10-27] MEDS: LEVOTHYROXINE 75 MCG TAB PO SCH (06:15)
[2016-10-27] MEDS: BUDESONIDE 0.5 MG/2 ML VIAL (PULMICORT) INH SCH ×2 (07:10→19:35)
[2016-10-27] MEDS: ALBUT/IPRATROP 3MG/0.5MG NEB 3 ML VIAL INH SCH ×4 (07:10→19:35)
[2016-10-27] MEDS: DULERA~ORDER AWAITING ACTION SCH ×4 (08:00→23:34)
[2016-10-27 08:09] LABS: ESTIMATED AVERAGE GLUCOSE 157 mg/dl; HA1C FLAG Normal (Normal)
[2016-10-27] MEDS: HYDROCORTISONE 10 MG TAB PO SCH (08:14)
[2016-10-27] MEDS: BuPROPion XL 150 MG TABCR PO SCH (08:14)
[2016-10-27] MEDS: FINASTERIDE 5 MG TAB PO SCH (08:20)
[2016-10-27] MEDS: METOPROLOL SUCC 25MG EXT REL TAB PO SCH (08:21)
[2016-10-27] MEDS: FUROSEMIDE 40 MG TAB PO SCH (08:21)
[2016-10-27] MEDS: POTASSIUM CHLORIDE 20 MEQ TABCR PO SCH (08:21)
[2016-10-27] MEDS: BUDESONIDE/FORMOTEROL FUMARATE 80/4.5 60 PUFFS/INHALER INH SCH ×2 (08:23→21:23)
[2016-10-27] MEDS: INSULIN ASPART 100 UNITS/ML 3 ML PEN SC SCH ×4 (08:26→20:44)
[2016-10-27] MEDS: INSULIN GLARGINE SOLOSTAR 100 UNITS/ML 3 ML PEN SC SCH ×2 (08:26→20:47)
[2016-10-27] MEDS: HEPARIN SOD 5000 UNIT/0.5 ML CARP SQ SCH ×2 (08:27→20:48)
[2016-10-27] MEDS ORDERED: TIOTROPIUM BROMIDE 5 PUFF/90 MCG INH INH SCH (09:00)
--- NOTE | 2016-10-27 10:49 | Clinical Documentation Query ---
Dr. SANTO, DANNY : CLINICAL DOCUMENTATION QUERIES QUERY 1 OF 3 Clinical documentation includes a diagnosis of: Acute Respiratory Failure. ED documentation included "in no acute distress" and "mild tachypnea noted". Admitting provide noted "mild distress". There are no documented abnormal oxygen saturations, tachypnea, or tachycardia. ABG demonstrated a pO2 of 186 on a 2.5L nasal cannula. Due to stringent requirements by our coding department, multiple clinical indicators associated with this diagnosis must be present in order for this to be coded/captured within the medical record. If appropriate, please document 2 or more of the following clinical indicators in daily progress notes and the discharge summary. If you feel the diagnosis of acute respiratory failure was made in error, or do not agree with it, simply discontinue documentation thereof. Acute Respiratory Failure indicators include: * Respirations >28 * Air hunger * Use of accessory muscles of respiration * Inability to speak in full sentences * Cyanosis * Pulse ox <90% RA or <95% on O2 *pH <7.35 or >7.45 * pO2 < 60 mm Hg (or 10mm below COPD patient's baseline) * pCO2 >50mm Hg (or 10mm above COPD patient's baseline) * mechanical ventilation * Increased work of breathing * Tachypnea QUERY 2 OF 3 Documentation includes CHF, not otherwise specified. Most recent echocardiogram available to this reader (04/14/13) demonstrated a mildly reduced systolic function, LVEF 45-50%. He is being treated with Lasix and Lopressor, monitored on telemetry with I/O, daily weights, serial labs, and repeat echocardiogram. In your clinical opinion is this patient being managed for: ( x ) Chronic systolic (congestive) heart failure ( ) Other explanation of clinical findings (Please Explain) ( ) Unable to determine (Please Define) ( ) Need to Discuss ( ) Not Agree The medical record reflects the following clinical findings, treatment, and risk factors. Clinical Indicators: As above Treatment: He is being treated with Lasix and Lopressor, monitored on telemetry with I/O, daily weights, serial labs, and repeat echocardiogram Risk Factors: Age, hypertension, CAD, DM QUERY 3 OF 3 Admission BUN, creatinine, and estimated GFR were 17 mg/dl, 1.60 mg/dl, and 41 ml/min. Review of historical EMR demonstrates a GFR range of 38-54 ml/min from 07/18/14 to present. Please clarify as clinically appropriate. In your clinical opinion is this patient being managed for: ( x ) Chronic kidney disease, stage 3 ( ) Other explanation of clinical findings (Please Explain) ( ) Unable to determine (Please Define) ( ) Need to Discuss ( ) Not Agree The medical record reflects the following clinical findings, treatment, and risk factors. Clinical Indicators: As above Treatment: Serial chemistries Risk Factors: Age, hypertension, CAD, DM, chronic systolic CHF IF IN AGREEMENT, YOU MUST DOCUMENT ABOVE DIAGNOSTIC STATEMENT IN DAILY PROGRESS NOTES AND DISCHARGE SUMMARY. This document is not part of the patient's record. Thank You, Christian Lemos, RN [phone]
--- NOTE | 2016-10-27 11:15 | ECHOCARDIOGRAM REPORT ---
*NOTICE TO RECEIVING LIBERTARIAN AGENCY This information is strictly Confidential and protected under [place] law. [place] law prohibits you from making any further disclosure of this information unless further disclosure is expressly permitted by the written consent of the person to whom it pertains or is authorized by law. A general authorization for the release of medical or other information is not sufficient for this purpose. Hospital accepts no responsibility if the information is made available to any other person, INCLUDING THE PATIENT. Interpretation Summary * Name: BARBARA NAVARRO Study Date: 10/27/2016 07:01 AM BP: 117/54 mmHg * Patient Location: [facility]\S\N287\S\2 HR: 89 * : 1940 (M/d/yyyy) Gender: Male Height: 71 in * Age: 76 yrs Ethnicity: CA Weight: 223 lb * Ordering Physician: Aylin Lee * Performed By: Annmarie Mike * * Reason For Study: CHF * BSA: 2.2 m2 * -- Conclusions -- * The left ventricle is mildly dilated. * There is mild concentric left ventricular hypertrophy. * Left ventricular systolic function is mildly reduced. * Grade I diastolic dysfunction, (abnormal relaxation pattern). * The left atrium is moderately dilated. * The right ventricular systolic function is reduced as assessed by tricuspid annular plane systolic excursion (TAPSE) (TAPSE <1.6 cm). * Compared to a study from 2014, there is minimal change Procedure Details * A complete two-dimensional transthoracic echocardiogram was performed (2D, M-mode, Doppler and color flow Doppler). * A contrast injection of Definity was performed to improve assessment of LV function. * Contrast was injected into an intravenous site in the left arm. * One vial of Definity ultrasound contrast was diluted in normal saline to a total volume of 10 ml. A total of '3' ml of solution was administered during imaging. * Lot # [id number] of Definity utilized for procedure. * Expiration date 11/05. * The attending nurse who injected the contrast agent was FLACA RIDDLE RN. Left Ventricle * The left ventricle is mildly dilated. * There is mild concentric left ventricular hypertrophy. * The basal septum is thickened and angulated consistent with sigmoid septum. * Ejection Fraction = 45-50%. * Left ventricular systolic function is mildly reduced. * Grade I diastolic dysfunction, (abnormal relaxation pattern). * There are regional wall motion abnormalities as specified. * moderate hypokinesis of the inferior and lateral rosa. Right Ventricle * There is a pacemaker lead in the right ventricle. * The right ventricle is normal size. * The right ventricular systolic function is reduced as assessed by tricuspid annular plane systolic excursion (TAPSE) (TAPSE <1.6 cm). Atria * The left atrium is moderately dilated. * Right atrial size is normal. * There is a catheter/pacemaker lead seen in the right atrium. Mitral Valve * The mitral valve is grossly normal. * Significant mitral regurgitation is absent. Tricuspid Valve * The tricuspid valve is not well visualized, but is grossly normal. * There is trace tricuspid regurgitation. Aortic Valve * Aortic valve sclerosis mild, without significant aortic valvular stenosis. * No hemodynamically significant valvular aortic stenosis. * There is no significant aortic regurgitation. Pericardium/Pleural * There is no pericardial effusion. MMode 2D Measurements and Calculations IVSd 2.3 cm IVSs 2.9 cm LVIDd 5.4 cm LVIDs 4.1 cm LVPWd 1.4 cm LVPWs 2.4 cm IVS/LVPW 1.7 FS 23.8 % EDV(Teich) 142.8 ml ESV(Teich) 75.6 ml EF(Teich) 47.1 % EDV(cubed) 159.7 ml ESV(cubed) 70.6 ml EF(cubed) 55.8 % % IVS thick 25.5 % % LVPW thick 75.5 % LV mass(C)d 496.0 grams LV mass(C)dI 224.6 grams/m\S\2 LV mass(C)s 639.6 grams LV mass(C)sI 289.6 grams/m\S\2 CO(Teich) 6.0 l/min CI(Teich) 2.7 l/min/m\S\2 SV(Teich) 67.2 ml SI(Teich) 30.4 ml/m\S\2 CO(cubed) 7.9 l/min CI(cubed) 3.6 l/min/m\S\2 SV(cubed) 89.1 ml SI(cubed) 40.3 ml/m\S\2 ACS 1.8 cm LA dimension 4.8 cm asc Aorta Diam 3.7 cm LVOT diam 2.5 cm LVOT area 4.8 cm\S\2 LVAd ap4 36.8 cm\S\2 LVLd ap4 8.2 cm EDV(MOD-sp4) 133.0 ml LVAs ap4 25.2 cm\S\2 LVLs ap4 7.1 cm ESV(MOD-sp4) 73.0 ml EF(MOD-sp4) 45.1 % LVAd ap2 42.2 cm\S\2 LVLd ap2 8.1 cm EDV(MOD-sp2) 184.0 ml LVAs ap2 28.5 cm\S\2 LVLs ap2 7.3 cm ESV(MOD-sp2) 90.4 ml EF(MOD-sp2) 50.9 % CO(MOD-sp4) 5.3 l/min CI(MOD-sp4) 2.4 l/min/m\S\2 SV(MOD-sp4) 60.0 ml SI(MOD-sp4) 27.2 ml/m\S\2 CO(MOD-sp2) 8.3 l/min CI(MOD-sp2) 3.8 l/min/m\S\2 SV(MOD-sp2) 93.6 ml SI(MOD-sp2) 42.4 ml/m\S\2 Doppler Measurements and Calculations MV E max nyla 84.9 cm/sec MV A max nyla 114.5 cm/sec MV E/A 0.74 MV dec time 0.34 sec Ao V2 max 148.4 cm/sec Ao max PG 8.8 mmHg Ao max PG (full) 6.1 mmHg PERLA(V,A) 2.6 cm\S\2 PERLA(V,D) 2.6 cm\S\2 LV V1 max PG 2.7 mmHg LV V1 max 82.3 cm/sec PA V2 max 123.7 cm/sec PA max PG 6.1 mmHg
--- NOTE | 2016-10-27 11:40 | Family Medicine Progress Note ---
Progress Note Date of Service Oct 27, 2016. Subjective Pt evaluation today including: conversation w/ patient, physical exam, chart review, lab review The patient was seen and examined at bedside. Additional history from Patient: Pt had a syncopial episode yesterday while talking with his neighbor, doesn't remember the entire event but thinks his neighbor caught him. Pt states that he had a similar event in 2013. Pt denies hitting his head. SHx: Pt was recently started on Symbicort. Pt spent many years in the [employer] in [place]. 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 Pt states that for the past few weeks he has felt significantly more fatigued than usual. Patient is resting comfortably in bed. Denies having any pain. Eating and urinating well. Plan of care was described to the patient and all questions were answered. ROS: No chest pain, + SOB, + significant dyspnea on exertion, no palpitations, no fevers, no chills, no nausea, no vomiting, no diarrhea, no dysuria, no rash. Objective Physical Exam General Appearance: WD/WN Neck: supple, no adenopathy Respiratory/Chest: chest non-tender, normal breath sounds, no respiratory distress, no accessory muscle use, + pertinent finding (decreased breath sounds in all lung barrios, no rhonchi, no wheezing, no rales, no crackles. ) Cardiovascular: regular rate, rhythm, no edema, no gallop, no JVD, no murmur Abdomen: normal bowel sounds, non tender, soft, no organomegaly, no pulsatile mass Extremities: normal range of motion, non-tender, normal inspection, no pedal edema, no calf tenderness, + pertinent finding (loss of hair in the lower distal extremities bilaterally.) Neurologic/Psychiatric: alert, normal mood/affect, oriented x 3 Notes: CT Chest: * 1. No acute cardiopulmonary process. * 2. Minimal pleural parenchymal scarring and subpleural reticulation with areas of subsegmental atelectasis, notably involving the lung bases. No significant fibrotic changes, bronchiectasis or honeycombing. * 3. Noncalcified pulmonary nodules of the lungs are seen, largest of which involves the lateral basal segment left lower lobe, 6 x 4 mm. * 4. Additional incidental findings as above. Echo: * The left ventricle is mildly dilated. * There is mild concentric left ventricular hypertrophy. * Left ventricular systolic function is mildly reduced. * Grade I diastolic dysfunction, (abnormal relaxation pattern). * The left atrium is moderately dilated. * The right ventricular systolic function is reduced as assessed by tricuspid annular plane systolic excursion (TAPSE) (TAPSE <1.6 cm). * Compared to a study from 2014, there is minimal change Assessment and Plan 68M with asthma who presents with about 3 weeks of fatigue and shortness of breath, with new O2 requirement. Differential includes asthma exacerbation, bronchitis, underlying lung disease, PE, sleep apnea, pneumonia. Echo was grossly unremarkable. Carotid US were normal. There is a concern for interstitial lung disease due to the patients occupational history and abnormal CT scan. PFT's in August did not show on overly obstructive or restrictive pattern. Acute hypoxic respiratory failure, requiring 2-3L nasal cannula O2 - Pt has increased work of breathing and Oxygen saturation of <90% on room air. - Duonebs QID when awake and Albuterol PRN shortness of breath - Spiriva daily - Budesonide/Formoterol Fumarate (Symbicort 80/4.5 Inhaler), 2 PUFFS INH BID - CT has abnormal finding as above. - Nocturnal pulse ox - Will consider pulmonary consult depending on results of CT scan. - Hold Home Levoquin. CKD Stage 3 - Creatinine is 1.6 Chronic CHF * Echo: Grade I diastolic dysfunction, (abnormal relaxation pattern). * Lasix 40 MG PO QAM * Toprol Xl, 25 MG PO DAILY * KCL 20mEq daily (home med) Type 2 Diabetes * A1c = 7.1 * Continue home Lantus regime * Sliding scale meal coverage Hyperlipidemia * Continue Fenofibrate 145 MG PO HS * Pravastatin 40mg PO daily. Hx of adrenal insufficiency * Hydrocortisone (Cortef), 10 MG PO QPM + 20 MG PO QAM Back pain * Oxycodone Ir (Roxicodone Ir), 5 MG PO Q6H PRN for Pain * Tramadol Hcl (Ultram), 50 MG PO Q8H PRN for Pain BPH * Finasteride (Proscar), 5 MG PO QAM Depression * Bupropion Hcl (Wellbutrin Xl), 150 MG PO DAILY Hypothyroid * continue Levothyroxine 75 MCG PO QAM Dispo: Tele, PT and OT on board. FULL CODE Resident Physician Supervision Note: I interviewed and examined the patient. Discussed with Dr. De Leon and agree with findings and plan as documented in the note. Any exceptions or clarifications are listed here: None Documented By: Ruben Bartholomew sob / nausea. both tied together -- when one gets worse the other gets worse. notes dr reynolds said he had scarring in his lungs from before. syncope - felt nauseated then felt dizzy then LOC. otherwise hasn't happened since pacer vitals noted nad fatigued decreased BS faint scattered rale no r/w good effort abd soft nd nd no masses sob/lemon - relates to nausea as well - ?pneumoconiosis - will ask pulmonary for opinion syncope - appearing quite vagal. echo noted, interrogate pacer for completeness ; overall picture reassuring for this Resident Involvement: Resident Care Provided Care Provided: Adult Hospital Medicine
--- NOTE | 2016-10-27 13:33 | DIAGNOSTIC IMAGING REPORT ---
CAROTID DOPPLER NECK ART HISTORY: Syncope syncopal episode COMPARISON: None. TECHNIQUE: Real-time, grayscale, and color Doppler sonography of the carotid arteries was performed. Imaging reviewed in the transverse and longitudinal planes. All measurements were calculated based on NASCET criteria. FINDINGS: Antegrade flow is seen in the bilateral vertebral arteries. The brachial pressures are hemodynamically similar. Significant plaque formation bilaterally The peak systolic velocity within the right ICA is 96. The right systolic ratio is 1.2. The peak systolic velocity within the left ICA is 104. The left systolic ratio is 1.0. IMPRESSION: 1. No significant stenotic process of the common or internal carotid arteries. 2. 40-60% narrowing of the external carotid arteries bilaterally. 3. Significant plaque formation bilaterally The above report was generated using voice recognition software. It may contain grammatical, syntax or spelling errors. Electronically signed by: Kelby Solomon M.D. 10/27/2016 1:31 PM Dictated Date/Time: 10/27/2016 1:30 PM
--- NOTE | 2016-10-27 18:11 | PULMONARY CONSULTATION ---
DATE OF CONSULTATION: 10/27/2016 TIME: 03:55 p.m. HISTORY OF PRESENT ILLNESS: The patient was seen in room 287, bed 2. He is a 76-year-old male who has a history of asthma since his 30s. 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 He was admitted yesterday because of a syncopal episode. The patient states that he was in his driveway speaking with another man. He felt very odd. He began to have some sensation of vertigo. He broke out in a sweat. The patient passed out and was caught by the other gentleman, who was with him, so that he did not fall and hurt himself. He subsequently had a little nausea and a little bit of vomiting. He states he has not felt well for a few months. Symptoms have been somewhat vague. He describes having an episode, where he had an 11-day stretch, where he just had no energy and would stay in bed. His appetite was decreased at that time. He states he lost 10-11 pounds. His weight gained back, however, once he was feeling better. His states that he is very sleepy during the day. It is not unusual for him to nap on 2 separate occasions a day from 1-2 hours at a time. Conversely, he is having trouble sleeping at night. He falls asleep fairly readily, but when he awakened, he has difficult time going back to sleep. He does wake up to urinate at night a few times. He has a history of BPH. He has a very poor flow on his stream. The patient does describe that he has been feeling sick. He did have a prior history of numerous syncopal episodes years ago. He states on one occasion, he fell and broke a shoulder. At another time, he fell and broke an ankle. These problems resolved when he had a pacemaker put in. This is the first episode he has had since the pacemaker. I was able to locate a blood test done on May 04 this year that showed a blood sugar of only 45. Thus, the possibility of hypoglycemia would need to be considered as well. The patient states that he is short of breath sometimes at rest or with minimal exertion. He has a small garden at home and he would to walk 20-25 yards to get there. He states he is short of breath doing that at times. He does not have much cough. Sometimes, he will expectorate some phlegm. He thinks the phlegm is thick and sometimes, it is discolored. PAST SURGICAL HISTORY: 1. Pacemaker insertion approximately 3 years ago. 2. Right cataract surgery. PAST MEDICAL HISTORY: 1. Asthma as noted. 2. Hypertension. 3. CHF. 4. Diabetes mellitus. 5. BPH. 6. Renal insufficiency. SOCIAL HISTORY: Tobacco, never. 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 FAMILY HISTORY: Father at age 75, had an NM and asthma. Mother in her 80s of heart disease. MEDICATIONS AT HOME: 1. Ventolin HFA p.r.n. 2. Symbicort 80/4.5 two puffs b.i.d. 3. Bupropion 150 mg daily. 4. Tricor 145 mg daily. 5. Finasteride 5 mg daily. 6. Furosemide 40 mg daily. 7. Hydrocortisone 20 mg in the morning and 10 in the evening. 8. Lantus insulin 55 units b.i.d. 9. Levothyroxine 75 mcg daily. 10. Metoprolol 25 mg daily. 11. Oxycodone IR 5 mg q. 6 hours p.r.n. 12. Potassium 20 mEq daily. 13. Pravastatin 40 mg daily. 14. Tiotropium by HandiHaler 1 daily. 15. Tramadol 50 mg q. 8 hours p.r.n. 16. Zafirlucast 20 mg b.i.d. 17. Zolpidem 5 mg at bedtime p.r.n. REVIEW OF SYSTEMS: GENERAL: The patient's energy level has been very low. He does live with his . NEUROLOGIC: The patient had the syncopal episode as noted. He has had some headaches intermittently. 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 ENT: The patient has some nasal congestion. He snores loudly at times. His has not observed apneas. When I described to her however, having loud snoring followed by an episode of quiet and then some gasping, she did think she had heard that before. The patient has disturbed nocturnal sleep with difficulties going back to sleep as noted. He has difficulty staying awake during the day. CARDIAC: The patient denies any chest pains or palpitations. PULMONARY: As noted above. GASTROINTESTINAL: He had the nausea and vomiting x1 as noted. Denies any acute GI problems today. GENITOURINARY: He has a very slow stream. He has frequent urination. His stream stops and starts. MUSCULOSKELETAL: Denies myalgias or arthralgias. DERMATOLOGIC: No rash. ENDOCRINE: No lymphadenopathy. PHYSICAL EXAMINATION: GENERAL: The patient is a 76-year-old male who was cooperative, alert and oriented. He appeared comfortable. His weight is 101.4 kilograms. BMI is 31.2. HEENT: Eye exam shows that the left eye deviates slightly laterally. He has minimal vision through this as noted. He has an implant on the right eye from prior cataract surgery. Nares were mildly congested. Mouth exam showed dentures top and bottom. Pharynx revealed a Malempati grade 2. NECK: He has a large neck. No lymphadenopathy was noted. CHEST: Normal development. There is a pacemaker in the left upper anterior chest. HEART: Rate is 94 per minute. The rhythm is irregularly irregular. LUNGS: Lung barrios revealed good breath sounds bilaterally. No active wheezes, rales or rhonchi were heard. Respiratory rate was 20. Oxygen saturation on room air is 95%. Reportedly, the patient had some hypoxia in the Emergency Room, but I could not find it documented. Blood pressure most recently was 155/66. ABDOMEN: Soft and nontender. Good bowel sounds were heard. No masses were palpable. EXTREMITIES: Showed no cyanosis, clubbing or edema. DIAGNOSTIC STUDIES: The patient had a chest x-ray done yesterday. This showed no active disease. There was evidence of a pacemaker. Venous Doppler was done and this was negative. Left ankle x-ray showed no fracture. Chest CT done yesterday showed some opacification at the lung bases that appears to be scarring or atelectasis. There is an area of abnormality entering the right middle lobe. This could be mild bronchiectasis. There was a nodule seen in the lateral basal segment of the left lower lobe measuring 6 mm. There were other nodules noted. LABORATORY DATA: White count is 12.32. Hemoglobin 15.4. Platelets 319,000. Coags were normal. Blood gas showed a pH of 7.40 with a pCO2 of 39 and a pO2 of 186 on 2.5 liters of oxygen. Electrolytes show sodium 142, potassium 4.0, chloride 109, and bicarbonate 25. BUN was 17 with creatinine of 1.6. ProBNP was elevated at 1891. Liver functions were normal. Hemoglobin A1c was 7.1. I reviewed the patient's office records. He sees Dr. Ruiz about every 6 months. He was last seen in August. He had a pulmonary function testing done in September 08 that showed a moderate obstructive pattern with slight increase following bronchodilators. IMPRESSION: 1. Asthma. 2. Syncopal episode. 3. Possible obstructive sleep apnea. 4. Multiple small lung nodules. 5. Scarring or atelectasis at the lung bases. 6. Possible side effect of tiotropium with decreased urination. COMMENTS AND RECOMMENDATIONS: The patient's symptoms seem greater than what he shows on physical exam. He describes severe shortness of breath, but did not look that way at present. He is on chronic hydrocortisone. He did not know why that was. Review of the old records suggests secondary adrenal insufficiency. This apparently was diagnosed years ago. I believe we should stop the Spiriva and see what happens with his urination. He was started on budesonide by nebulizer. He is also receiving Symbicort 80/4.5 two puffs b.i.d. I am not certain that giving him 2 forms of inhaled steroid is logical in the long haul. Perhaps, the Symbicort could be increased to the 160/4.5 dosage upon discharge. He is getting DuoNeb q.i.d. One could consider a nebulizer for the patient at home if he does not have one already. I believe the patient would be a candidate for a sleep study. He has disturbed nocturnal sleep, snoring, and excessive daytime somnolence. I can make those arrangements after discharge. One could consider repeat CAT scan of the chest in 6-12 months. Thank you for asking me to assist in his care. EMPERATRIZ
[2016-10-27] MEDS ORDERED: HYDROCORTISONE 10 MG TAB PO SCH (21:00)
[2016-10-27] MEDS ORDERED: FENOFIBRATE 145 MG TAB PO SCH (21:00)
[2016-10-27] MEDS ORDERED: PRAVASTATIN SOD 40 MG TAB PO SCH (21:00)
[2016-10-28] VITALS (9 sets, daily range): BP systolic 117–173; BP diastolic 61–80; PULSE 65–80; TEMP 36.4–36.8; O2SAT 93–98
[2016-10-28] MEDS: LEVOTHYROXINE 75 MCG TAB PO SCH (05:28)
[2016-10-28] MEDS: BUDESONIDE 0.5 MG/2 ML VIAL (PULMICORT) INH SCH (07:05)
[2016-10-28] MEDS: ALBUT/IPRATROP 3MG/0.5MG NEB 3 ML VIAL INH SCH ×3 (07:05→16:11)
[2016-10-28 07:07] LABS: HEMATOCRIT 41.6 % (42-52); MEAN CELL VOLUME 86.8 fL (80-100); MEAN CORPUSCULAR HGB CONC 32.2 g/dl (32-36); MEAN PLATELET VOLUME 10.1 fL (7.4-10.4); PLATELET COUNT 301 K/uL (130-400); RED BLOOD COUNT 4.79 M/uL (4.7-6.1); WHITE BLOOD COUNT 9.37 K/uL (4.8-10.8)
[2016-10-28 07:37] LABS: BUN/CREATININE RATIO 12.4 (10-20); CALCIUM 9.4 mg/dl (8.5-10.1); CREATININE 1.6 mg/dl (0.60-1.40); MAGNESIUM 2.2 mg/dl (1.8-2.4); POTASSIUM 4.2 mmol/L (3.5-5.1)
[2016-10-28] MEDS: INSULIN ASPART 100 UNITS/ML 3 ML PEN SC SCH ×2 (07:52→12:48)
[2016-10-28] MEDS: DULERA~ORDER AWAITING ACTION SCH ×2 (08:00→15:36)
[2016-10-28] MEDS ORDERED: ONDANSETRON 4MG OD TAB PO STA (08:08)
[2016-10-28] MEDS ORDERED: ONDANSETRON 4MG OD TAB PO PRN (08:15)
[2016-10-28] MEDS ORDERED: OXYCODONE HCL IR 5 MG TAB (IMMEDIATE RELEASE) PO PRN (08:15)
[2016-10-28] MEDS: INSULIN GLARGINE SOLOSTAR 100 UNITS/ML 3 ML PEN SC SCH (08:59)
[2016-10-28] MEDS: BUDESONIDE/FORMOTEROL FUMARATE 80/4.5 60 PUFFS/INHALER INH SCH (09:00)
[2016-10-28] MEDS: HEPARIN SOD 5000 UNIT/0.5 ML CARP SQ SCH (09:01)
[2016-10-28] MEDS ORDERED: METOPROLOL TARTRATE 1 MG/ML VIAL ONE (09:56)
[2016-10-28] MEDS ORDERED: DOBUTamine HCL 12.5 MG/ML 20 ML VIAL ONE (09:56)
[2016-10-28] MEDS ORDERED: ATROPINE SULFATE 0.1 MG/ML 5ML SYR ONE (09:56)
[2016-10-28] MEDS: FINASTERIDE 5 MG TAB PO SCH (10:58)
[2016-10-28] MEDS: POTASSIUM CHLORIDE 20 MEQ TABCR PO SCH (10:58)
[2016-10-28] MEDS: METOPROLOL SUCC 25MG EXT REL TAB PO SCH (10:58)
[2016-10-28] MEDS: HYDROCORTISONE 10 MG TAB PO SCH (10:59)
[2016-10-28] MEDS: FUROSEMIDE 40 MG TAB PO SCH (10:59)
[2016-10-28] MEDS: BuPROPion XL 150 MG TABCR PO SCH (11:00)
--- NOTE | 2016-10-28 12:04 | PULMONARY PROGRESS NOTE ---
DATE: 10/28/2016 TIME: 11:35. SUBJECTIVE: The patient states that this morning, he has been having headaches and feeling like vertigo. He did not have any syncopal episodes. He has not been short of breath at all. He has no cough. The patient did go down for a stress test this morning. There was a dobutamine stress test. The results are still pending. He indicates that he just has not been feeling that good today. OBJECTIVE: GENERAL: The patient appeared comfortable. He was cooperative, alert and oriented. He did not appear in any distress at all. He has been afebrile. ENT: Unremarkable. NECK: He has puffiness in the supraclavicular fossa, but with no lymphadenopathy. HEART: His current heart rate is 82. The rhythm is irregular. Blood pressure 117/61. LUNGS: Lung barrios were clear. No significant wheezes, rales or rhonchi were heard. Oxygen saturation on room air is 97%. Respiratory rate was 18 breaths per minute. EXTREMITIES: Showed no cyanosis, clubbing or edema. LABORATORY DATA: Today shows a white count of 9.37. Hemoglobin 13.4. Platelets 301,000. Electrolytes were normal. BUN was 20 and previously, it had been 17. The creatinine today is 1.6 and previously, it had been 1.6. Calcium and magnesium were normal. IMPRESSIONS: 1. Asthma. 2. Syncopal episode. 3. Possible obstructive sleep apnea. 4. Scarring or atelectasis at the bases. 5. Small lung nodule. COMMENTS AND RECOMMENDATIONS: The patient's respiratory status seems stable. He is still not feeling all that well, however. The results of his stress test are pending. We did stop the tiotropium yesterday. We will see if this improves his urinary flow. It may take 1-2 weeks for that improvement to occur. The patient is receiving neb treatments. In light of the fact he is getting Symbicort, I do not believe he needs budesonide by nebulizer as well. From a purely pulmonary perspective, I have no objection to discharge when desired. I believe he should have a sleep study as an outpatient and I will try to make that happen upon discharge. If the patient is not discharged today, I would suggest doing an overnight pulse oximetry study on room air.
--- NOTE | 2016-10-28 15:30 | DOBUTAMINE ECHO ---
*NOTICE TO RECEIVING REPUBLICAN AGENCY This information is strictly Confidential and protected under [place] law. [place] law prohibits you from making any further disclosure of this information unless further disclosure is expressly permitted by the written consent of the person to whom it pertains or is authorized by law. A general authorization for the release of medical or other information is not sufficient for this purpose. Hospital accepts no responsibility if the information is made available to any other person, INCLUDING THE PATIENT. Interpretation Summary * Name: BARBARA NAVARRO Study Date: 10/28/2016 09:04 AM BP: 155/73 mmHg * Patient Location: [facility]\S\N287\S\2 HR: 80 * : 1940 (M/d/yy) Gender: Male Height: 71 in * Age: 76 yrs Ethnicity: CA Weight: 223 lb * Ordering Physician: Ruben Bartholomew * Performed By: Annmarie Mike * * Reason For Study: DYSPNEA * BSA: 2.2 m2 * Normal echo response to pharmacologic stress. No echo evidence of stress induced myocardial ischemia. * The ST segment response is diagnostic of ischemia. The specificity of these changes are diminished by the baseline ST segment abnormalities. Procedure Details * DOBUTAMINE ECHO, CPT#61942 * The study was technically difficult with many images being suboptimal in quality. * A contrast injection of Definity was performed to improve assessment of LV function. * Contrast was injected into an intravenous site in the left arm. * One vial of Definity ultrasound contrast was diluted in normal saline to a total volume of 10 ml. A total of '8' ml of solution was administered during imaging. * Lot # [id number] of Definity utilized for procedure. * Expiration date 11/05. * The attending nurse who injected the contrast agent was MARIANA VIGIL RN. Left Ventricle * Left ventricular systolic function is mildly reduced. * Rest LVEF 45-50%. After stress there was an increase in the LVEF as well as a reduction in the LV end systolic volume compared to the rest echo. * The left ventricular ejection fraction increases normally with stress. The left ventricular end-systolic cavity size reduces post-stress (normal response). The left ventricular wall motion with stress is normal. * Resting echo with inferior,posterolateral,and lateral hypokinesis. Augmentation of wall motion in all LV segments after stress. Stress Parameters * Sinus rhythm with frequent PACs. RBBB , left axis deviation, left anterior fasicular block.ST depression in aVL. * Increased ST bdepression in aVL. Development of [address] depression lead I. * Rest heart rate was '80' BPM. * Rest blood pressure was '155/73' * Maximum heart rate achieved was 139 bpm. * Maximum heart rate was 97 % of maximum age-predicted heart rate. * Maximum blood pressure was '253/71' * Maximum Dobutamine infusion rate was '40' mcg/kg/min. * Dobutamine infusion was terminated due to achieving target heart rate * A total of 10 mg of IV Metoprolol was administered to reverse Dobutamine-induced tachycardia. * The patient exhibited headache during the drug infusion. * Target heart rate achieved. No chest pain or other anginal sysmptoms with stress. * The patient exhibited a hypertensive response with stress.
--- NOTE | 2016-10-28 16:56 | Discharge Instructions ---
Discharge Instructions Date of Service Oct 28, 2016. Admission Reason for Admission: Acute Respiratory Failure W/ Hypoxia, Asthma Discharge Discharge Diagnosis / Problem: Shortness of Breath Discharge Goals Goal(s): Decrease discomfort, Improve function, Improve nutritional status, Learn about illness Activity Recommendations Activity Limitations: per Instructions/Follow-up section . Instructions / Follow-Up Instructions / Follow-Up On discharge we want you to hold your Spiriva - this will likely improve your urinary issues. We are arranging a follow up with an Water Pump Servicer for an outpatient follow up for your secondary adrenal insufficiency. Please keep this appointment. Someone from [facility] will contact you within the next week to schedule this appointment. We recommend a sleep study test as outpatient. Your fatigue may all be a result of undiagnosed sleep apnea. This sleep test can be arranged by your Primary Care Provider or by Dr. Wilder (the stallion keeper that saw you in the hospital). We recommend following up with your primary care doctor or Dr. Wilder for your pulmonary issues. We also recommend a follow up with your Wrist Closer Dr. Haley and Family Doctor. The CT Scan of your chest showed non specific findings, one of which was a pulmonary nodule. We recommend a repeat CT Scan of the chest in 6-12 months to track the growth of this nodule. Non growing nodules in the lungs are of little clinical important but their growth should be tracked with periodic lung CT scans. Your primary care doctor will be able to arrange this exam. An information packet will be provided for you regarding Asthma, Diabetes and Diabetes Friendly Diets. Please read this information carefully. Current Hospital Diet Patient's current hospital diet: Diabetes Type 2 Diet, AHA Diet (Heart Healthy) Discharge Diet Recommended Diet: Diabetes Type 2 Diet Pending Studies Studies pending at discharge: no Laboratory Results Hemoglobin A1c Test 10/27/16 06:10 Range/Units Estimated Average Glucose 157 mg/dl Hemoglobin A1c 7.1 H 4.5-5.6 % Medical Emergencies . Who to Call and When: Medical Emergencies: If at any time you feel your situation is an emergency, please call 911 immediately. . Non-Emergent Contact Non-Emergency issues call your: Primary Care Provider, Wrist Closer, Glass Sander, Specialist (dynamics ax solution architect) . . "Provider Documentation" section prepared by Kelby De Leon. . VTE Core Measure Inpt VTE Proph given/why not?: Unfractionated heparin SQ, SCD's Resident Involvement: Resident Care Provided Care Provided: Adult Hospital Medicine
--- NOTE | 2016-10-28 18:10 | Discharge Summary ---
Discharge Summary Date of Service Oct 28, 2016. (Kelby De Leon M.D.) Discharge Summary Admission Date: Oct 26, 2016 at 21:47 Discharge Disposition: Home Principal Diagnosis: Acute Respiratory Failure Immunizations: Have You Had Influenza Vaccine: Yes Influenza Vaccine Date: Jan 02, 2013 History of Tetanus Vaccine?: UTD History of Pneumococcal: Yes Pneumococcal Date: Jun 18, 2011 History of Hepatitis B Vaccine: No Procedures: ECHOCARDIOGRAM: * Normal echo response to pharmacologic stress. No echo evidence of stress induced myocardial ischemia. * The ST segment response is diagnostic of ischemia. The specificity of these changes are diminished by the baseline ST segment abnormalities. CAROTID DOPPLER NECK ART HISTORY: Syncope syncopal episode COMPARISON: None. TECHNIQUE: Real-time, grayscale, and color Doppler sonography of the carotid arteries was performed. Imaging reviewed in the transverse and longitudinal planes. All measurements were calculated based on NASCET criteria. FINDINGS: Antegrade flow is seen in the bilateral vertebral arteries. The brachial pressures are hemodynamically similar. Significant plaque formation bilaterally The peak systolic velocity within the right ICA is 96. The right systolic ratio is 1.2. The peak systolic velocity within the left ICA is 104. The left systolic ratio is 1.0. IMPRESSION: 1. No significant stenotic process of the common or internal carotid arteries. 2. 40-60% narrowing of the external carotid arteries bilaterally. 3. 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 TECHNIQUE: Multiaxial CT images of the chest were performed without contrast. A dose lowering technique was utilized adhering to the principles of ALARA. COMPARISON: Chest radiograph 10/26/2016, CT abdomen and pelvis 04/04/2012. FINDINGS: No dominant thyroid nodule is seen. Left pectoral pacer is present with leads overlying the right atrial appendage and right ventricle. There is multichamber cardiac enlargement which is moderate. There is a trace pericardial effusion. Three-vessel distribution coronary arterial calcifications are present. There is moderate atherosclerotic plaquing of the thoracic aorta. There is no pathologic adenopathy of the chest identified. There is no pneumothorax or pleural effusion. Subsegmental linear and groundglass opacities of the lung bases are seen suggesting atelectasis with areas of pleural parenchymal scarring. There is mild subpleural reticulation present within the left upper lobe suggesting additional scarring. There is a 6 x 4 mm noncalcified pulmonary nodule the lateral basal segment left lower lobe. Pleural-based nodularity of the inferior segment lingula measuring up to 7 mm suggest atelectasis or scarring. 2 mm noncalcified pulmonary nodule is present within the superior segment right lower lobe. No significant fibrosis, fernando ectasis or honeycombing identified. Central airways are patent. There are scattered calcifications throughout the splenic parenchyma. Focal fat stranding or alternatively a renal angiomyolipoma seen adjacent to the superior pole left kidney, 1.7 x 1.0 cm. Unchanged from comparison. Soft tissues are unremarkable. Multiple remote right-sided rib fractures are noted. Remote appearing Schmorl's nodes are seen throughout the thoracic spine. IMPRESSION: 1. No acute cardiopulmonary process. 2. Minimal pleural parenchymal scarring and subpleural reticulation with areas of subsegmental atelectasis, notably involving the lung bases. No significant fibrotic changes, bronchiectasis or honeycombing. 3. Noncalcified pulmonary nodules of the lungs are seen, largest of which involves the lateral basal segment left lower lobe, 6 x 4 mm. 4. Additional incidental findings as above. Please refer to below summary of Fleischner criteria recommendations for follow-up of incidental CT nodules (Frederick Vergara, Guidelines for management of small pulmonary nodules detected on CT scans: A statement from the Fleischner Society, Radiology 237: [phone].) SOLID NODULES Multiple nodules size: <6 mm * Low risk patients: no routine follow-up * high risk patients: optional CT at 12 months Note: newly detected indeterminate nodule in persons 35 years of age or older. * Low risk patients: minimal or absent history of smoking and/or other known risk factors * high risk patients: history of smoking or of other known risk factors (e.g. first degree relative with lung cancer, or exposure to asbestos, radon, uranium) * if a nodule up to 8 mm is partly solid or is ground glass further follow-up is required after 24 months to exclude possible slow growing adenocarcinoma (LALIT) LEFT ANKLE MIN 3 VIEWS ROUTINE CLINICAL HISTORY: Left ankle pain status post trauma COMPARISON: None. DISCUSSION: There are vascular calcifications present. No fractures or subluxations are visualized. There are no erosive or destructive changes. IMPRESSION: 1. No acute fractures 2. Vascular calcifications VENOUS DOPPLER LW EXT BILAT HISTORY: Pain. Edema. hypoxic ? DVT COMPARISON STUDY: None. FINDINGS: There is normal compressibility, flow, and augmentation within the bilateral lower extremity deep venous systems. IMPRESSION: No DVT within the right or left lower extremity. CHEST ONE VIEW PORTABLE CLINICAL HISTORY: Dizziness and SOB COMPARISON STUDY: 05/18/2016 FINDINGS: The heart is enlarged. There is a left subclavian dual-chamber central venous pacemaker present. There is no failure. There is no lobar consolidation. Linear basilar opacities are felt to be atelectatic.[ IMPRESSION: No active disease in the chest. (Kelby De Leon M.D.) Medication Reconciliation Continued Medications: Albuterol Hfa (Ventolin Hfa) 200 Puffs/68883 Mcg Aers 2 PUFFS INH QID PRN for Shortness of Breath Budesonide/Formoterol Fumarate (Symbicort 80/4.5 Inhaler) Aero 2 PUFFS INH BID Bupropion Hcl (Wellbutrin Xl) 150 Mg Tab 150 MG PO DAILY Fenofibrate (Tricor ) 145 Mg Tab 145 MG PO HS, TAB Finasteride (Proscar) 5 Mg Tab 5 MG PO QAM, TAB Furosemide (Lasix) 40 Mg Tab 40 MG PO QAM, TAB Hydrocortisone (Cortef) 10 Mg Tab 10 MG PO QPM, TAB Hydrocortisone (Cortef) 20 Mg Tab 20 MG PO QAM Insulin Glargine (Lantus) 100 Unit/Ml Inj 55 UNITS SC BID Levothyroxine Sodium (Levothyroxine Sodium) 75 Mcg Tab 75 MCG PO QAM, TAB 5 Refills Metoprolol Succinate (Toprol Xl) 25 Mg Tabcr 25 MG PO DAILY Mometasone Furoate-Formoterol (Dulera 200/5 Mcg) 1 Aer Aer 2 PUFFS INH BID for 30 Days, #13 GM 5 Refills Oxycodone Ir (Roxicodone Ir) 5 Mg Tab 5 MG PO Q6H PRN for Pain, TAB Potassium Ext Rel (Klor-Con) 20 Meq Tabcr 20 MEQ PO DAILY Pravastatin Sodium (Pravastatin Sodium) 40 Mg Tab 1 TAB PO QPM for 90 Days, TAB 3 Refills Tramadol Hcl (Ultram) 50 Mg Tab 50 MG PO Q8H PRN for Pain, TAB PRN PAIN Zafirlukast (Zafirlukast) 20 Mg Tab 20 MG PO BID Zolpidem Tartrate (Zolpidem Tartrate) 5 Mg Tab 1 TAB PO HS PRN for Sleep Discontinued Medications: Levofloxacin (Levaquin) 500 Mg Tab 500 MG PO QAM for 7 Days, TAB Tiotropium [place] (Spiriva Handihaler) 30 Puff/540 Mcg Aerp 1 CAP INH DAILY Discharge Exam Subjective Pt evaluation today including: conversation w/ patient, physical exam, chart review, lab review The patient was seen and examined at bedside. No acute overnight events. Pt is feeling better. Is hoping for a discharge today so that he can set up for [employer] this weekend. Denies having any pain. Eating and urinating well. Still reports feeling fatigued. Plan of care was described to the patient and all questions were answered. ROS: No chest pain, + SOB, + significant dyspnea on exertion, no palpitations, no fevers, no chills, no nausea, no vomiting, no diarrhea, no dysuria, no rash. Physical Exam General Appearance: WD/WN Neck: supple, no adenopathy Respiratory/Chest: chest non-tender, normal breath sounds, no respiratory distress, no accessory muscle use, + pertinent finding (decreased breath sounds in all lung barrios, no rhonchi, no wheezing, no rales, no crackles. ) Cardiovascular: regular rate, rhythm, no edema, no gallop, no JVD, no murmur Abdomen: normal bowel sounds, non tender, soft, no organomegaly, no pulsatile mass Extremities: normal range of motion, non-tender, normal inspection, no pedal edema, no calf tenderness, + pertinent finding (loss of hair in the lower distal extremities bilaterally.) Neurologic/Psychiatric: alert, normal mood/affect, oriented x 3 (Kelby De Leon M.D.) Hospital Course 68M with asthma who presents with about 3 weeks of fatigue and shortness of breath, with new O2 requirement. Differential includes asthma exacerbation, bronchitis, underlying lung disease, PE, sleep apnea, pneumonia. Resting echo was grossly unremarkable. Carotid US were normal. There is a concern for interstitial lung disease due to the patients occupational history and abnormal CT scan. Pulmonology was consulted and recent PFTs done in August were reviewed. Pt has no signs of obstructive or restrictive lung disease. On Day #2 of hospitalization pt was sent for an exercise stress test which was grossly normal. Pt was weaned to room on by staff and did well on it. On discharge the only medication change was to hold the Spiriva. Spiriva has been known to worsen BPH. Follow interventions and recommendations include: - Endocrinology: We will plug the patient in with [facility] within the next 3 weeks for an evaluation of secondary adrenal insufficiency. Pt may need an adjustment on his cortisol dose. - Outpatient Sleep Study: This can be set up through PCP or Dr. Wilder. Pt has a history of noisy breathing when sleeping. - Follow up with Dr. Penn. Pt's fatigue may be from worsening cardiac ischemia. There was non specific ST Changes on exercise stress test. - Our CT Scan of the chest showed a pulmonary nodule. We recommend a repeat CT Scan of the chest in 6-12 months to track the growth of this nodule. Total Time Spent: Greater than 30 minutes This includes examination of the patient, discharge planning, medication reconciliation, and communication with other providers. (Kelby De Leon M.D.) Resident Physician Supervision Note: I interviewed and examined the patient. Discussed with Dr. De Leon and agree with findings and plan as documented in the note. Any exceptions or clarifications are listed here: None Documented By: Ruben [place] feeling ok wants to go home. no new complaints. stress test noted echo portion negative all other ROS otherwise negative except for as above vitals noted nad breathing unlabored no pallor or icterus no accessory muscles HADDAD/fatigue - CT mild scarring, PFTs mild obstruction, stress echo reassuring -?steroid dosing related, KAHLIL related -outpt endocrine eval, outpt sleep study, ongoing pulmonary and PCP f/u stable for discharge and wants to go home (Ruben Bartholomew D.O.) Discharge Instructions Please refer to the electronic Patient Visit Report (Discharge Instructions) for additional information. (Kelby De Leon M.D.) Additional Copies To Maegan Delgado M.D.; Oscar Wilder DO; Domingo Lambert M.D. Resident Involvement: Resident Care Provided Care Provided: Adult [facility] (Kelby De Leon M.D.)
[2016-12-06] MEDS ORDERED: HYDR-5688 PO (12:43)
== END 2016-10-28 17:42 | disposition home or self-care (01) | DRG 189 ==
LOC: EDBD 12:26 → C.EDB 12:27 → C.MED 21:47 → ENRESERV 21:58
PROVIDERS: ADMIT Hospitalist; ATTEND Hospitalist
DX: J96.01 Acute respiratory failure with hypoxia (principal); I50.32 Chronic diastolic (congestive) heart failure; J98.11 Atelectasis; E27.40 Unspecified adrenocortical insufficiency; R55 Syncope and collapse; T38.0X5A Adverse effect of glucocorticoids and synthetic analogues, initial encounter; R11.0 Nausea; M25.572 Pain in left ankle and joints of left foot; R91.8 Other nonspecific abnormal finding of lung field; J45.909 Unspecified asthma, uncomplicated; E11.22 Type 2 diabetes mellitus with diabetic chronic kidney disease; N18.3 Chronic kidney disease, stage 3 (moderate); E78.5 Hyperlipidemia, unspecified; E03.9 Hypothyroidism, unspecified; N40.0 Benign prostatic hyperplasia without lower urinary tract symptoms; M54.9 Dorsalgia, unspecified; G47.33 Obstructive sleep apnea (adult) (pediatric); F32.9 Major depressive disorder, single episode, unspecified; Z95.0 Presence of cardiac pacemaker; Z57.39 Occupational exposure to other air contaminants; Z79.4 Long term (current) use of insulin; Z79.51 Long term (current) use of inhaled steroids; Z79.52 Long term (current) use of systemic steroids; Z79.891 Long term (current) use of opiate analgesic; Z79.899 Other long term (current) drug therapy

== ENCOUNTER → 2016-11-02 | Outpatient (CLI) | payer OTHER ==
[~2016-11-02] MED LIST changes: -ALBUAER2 INH; +BUPRTAB PO; -ERGO1CAP35 PO; -FLNIN NAE; +HYDR-5688 PO; +HYDR20TA3 PO; -LEVO1TAB33 PO; +METO25TA3 PO; -METO25TA56 PO; -POTA-335 PO; +POTA20TA16 PO; +SYMIN/8045 INH; -TIOTCAP INH; +VNTHFA/IN INH
[2016-11-02 17:39] LABS: BASO % 0.2 %; BASO ABS # 0.03 K/uL (0-0.2); COMPLETE YES; EOS % 2.3 %; HEMATOCRIT 43.2 % (42-52); LYMPH % 5.8 %; LYMPH ABS # 0.72 K/uL (1.2-3.4); MEAN CELL VOLUME 86.2 fL (80-100); MEAN CORPUSCULAR HEMOGLOBIN 29.1 pg (25-34); MEAN CORPUSCULAR HGB CONC 33.8 g/dl (32-36); MEAN PLATELET VOLUME 10.8 fL (7.4-10.4); MONO % 7.2 %; NEUT % 83.5 %; PLATELET COUNT 398 K/uL (130-400); RED BLOOD COUNT 5.01 M/uL (4.7-6.1); WHITE BLOOD COUNT 12.43 K/uL (4.8-10.8)
[2016-11-02 17:56] LABS: BLOOD UREA NITROGEN 22 mg/dl (7-18); CARBON DIOXIDE 24 mmol/L (21-32); CHLORIDE 105 mmol/L (98-107); GLUCOSE 180 mg/dl (70-99); POTASSIUM 4.1 mmol/L (3.5-5.1); SODIUM 138 mmol/L (136-145)
[2016-11-03 07:05] LABS: ESTIMATED AVERAGE GLUCOSE 154 mg/dl; HA1C FLAG Normal (Normal)
== END | disposition home or self-care (01) ==
LOC: C.LABBFT 17:39
PROVIDERS: ATTEND Internal Medicine
DX: Z00.00 Encounter for general adult medical examination without abnormal findings (principal); R55 Syncope and collapse; R51 Headache; E11.65 Type 2 diabetes mellitus with hyperglycemia

== ENCOUNTER → 2016-12-03 | Outpatient (CLI) | payer OTHER ==
[2016-12-03 14:58] LABS: MANUAL MICROSCOPIC REQUIRED? NO; REVIEW REQ? YES; URINE APPEARANCE TURBID (CLEAR); URINE COLOR DK YELLOW; URINE NITRITE NEG (NEG); URINE PH 5.5 (4.5-7.5); URINE SPECIFIC GRAVITY 1.029 (1.000-1.030); UROBILINOGEN NEG (NEG)
[2016-12-03 15:00] LABS: URINE BILIRUBIN NEG (NEG)
[2016-12-08 22:35] LABS: ALBUMIN 3.6 G/DL (3.8-4.8); ALTERNARIA CLASS 0/1; ALTERNARIA IGE 0.32 KU/L; ANTI-CENTROMERE AB <1.0 NEG AI (<1.0 NEG); ANTI-SS-A <1.0 NEG AI (<1.0 NEG); ANTI-SS-B <1.0 NEG AI (<1.0 NEG); ASPERG FUMIG CLASS 0; ASPERG FUMIG IGE <0.10 KU/L; BAHIA GRASS ASM CLASS 0; BAHIA GRASS IGE <0.10 KU/L; BERMUDA GRASS CLASS 0; BERMUDA GRASS IGE <0.10 KU/L; BIRCH CLASS 0; BLACK LOCUST CLASS 0; BLACK LOCUST IGE <0.35 kU/L (<0.35); CAT DANDER CLASS 0; CLADOSPORIUM HER CLASS 0; CLADOSPORIUM HER IGE <0.10 KU/L; COCKROACH CLASS 0; D. FARINAE CLASS 0; D. FARINAE IGE <0.10 KU/L; D. PTERONYSSINUS CLASS 0; D. PTERONYSSINUS IGE <0.10 KU/L; DNA ds CRITHIDIA NEGATIVE (NEGATIVE); DOG DANDER CLASS 0; ELM CLASS 0; ENGLISH PLAN CLASS 0; ENGLISH PLAN IGE <0.10 KU/L; GAMMA GLOBULIN 1.1 G/DL (0.8-1.7); IMMUNOGLOBULIN E TC 24620E 310 KU/L (<115); JOHNSON CLASS 0; JOHNSON IGE <0.10 KU/L; JUNE (KENTUCKY BLUE) CLASS 0; JUNE IGE <0.10 KU/L; MAPLE (BOX ELDER) IGE <0.10 KU/L; MAPLE CLASS 0; MOUNTAIN CEDAR ASM CLASS 0/1; MUCOR CLASS 0; MUCOR IGE <0.10 KU/L; MYELOPEROXIDASE AB <1.0 AI (<1.0); NETTLE CLASS 0; NETTLE IGE <0.10 KU/L; PENIC NOTATUM CLASS 0; PENIC NOTATUM IGE <0.10 KU/L; ROUGH PIGWEED CLASS 0; ROUGH PIGWEED IGE <0.10 KU/L; SHORT RAGWEED CLASS 0; SHORT RAGWEED IGE <0.10 KU/L; STEMPHY BOTRY CLASS 0; STEMPHY BOTRY IGE <0.10 KU/L; Sm Antibody <1.0 NEG AI (<1.0 NEG); TOTAL PROTEIN 6.8 G/DL (6.2-8.3); WHITE HICKORY ASM CLASS 0; WHITE HICKORY IGE <0.10 kU/L (<0.35); WHITE MULBERRY CLASS 0; WHITE MULBERRY IGE <0.10 KU/L
--- NOTE | 2016-12-13 11:24 | CODING QUERY MEDICAL NECESSITY ---
CQSUPPORTING DIAGNOSIS NEEDED A supporting diagnosis is required for the test/procedure performed on this patient in order for us to be reimbursed by the patient's insurance. Please provide a supporting diagnosis for the following test/procedure listed below next to the test name along with your signature. *If there is no additional diagnosis for this patient that would support the following test/procedure please document that below next to the test/procedure. Test(s)/Procedure(s) that require a supporting diagnosis: DOS 12/03/16 ALLERGY TESTING Provider Signature: Date: Thank you Yeny Blair [employer] Information Management Once completed, please kindly fax back to [phone] For questions please call [phone]
== END | disposition home or self-care (01) ==
LOC: C.LAB1850 12:35
PROVIDERS: ATTEND Internal Medicine Rheumatology
DX: J33.9 Nasal polyp, unspecified (principal); Z88.6 Allergy status to analgesic agent; R53.83 Other fatigue; R51 Headache; R70.0 Elevated erythrocyte sedimentation rate; I77.6 Arteritis, unspecified; J45.909 Unspecified asthma, uncomplicated; J30.5 Allergic rhinitis due to food

== ENCOUNTER 2016-12-06 09:43 | Day surgery (SDC) | payer OTHER ==
[~2016-12-06] VITALS: Ht 177.8 cm; Wt 97.0 kg
[~2016-12-06 09:43] MED LIST changes: -HYDR-5688 PO; +LACTATED RINGER'S 1000ML 1,000 ML IV SCH
[2016-12-06] MEDS ORDERED: DEXTROSE 50% 50 ML SYR ONE ×2 (10:10→12:38)
[2016-12-06] MEDS ORDERED: NURSING VERBAL MED ORDER ONE ×2 (10:15→12:38)
[2016-12-06 10:22] VITALS: BP 179/83; PULSE 76; TEMP 36.5; O2SAT 98; Ht 177.8 cm; Wt 97.0 kg
[2016-12-06] MEDS ORDERED: FENTANYL CITRATE INJ 50 MCG/1 ML 2 ML VIAL ONE (10:45)
[2016-12-06] MEDS ORDERED: MIDAZOLAM HCL 1 MG/ML 2ML VIAL ONE (10:45)
[2016-12-06] MEDS ORDERED: LIDOCAINE HCL 2% 2 ML VIAL (20MG/ML) ONE (10:47)
[2016-12-06] MEDS ORDERED: PROPOFOL IV EMULSION 10 MG/ML 20 ML VIAL IV ONE (10:47)
--- NOTE | 2016-12-06 11:17 | History & Physical Bridge Note ---
H&P Re-Evaluation Bridge Note: I have examined the patient, reviewed the History & Physical and in the interval since the performance of the History & Physical I have noted the following changes of clinical significance: No changes noted
[2016-12-06] MEDS ORDERED: LIDOCAINE HCL 1% 20 ML VIAL ONE (11:29)
[2016-12-06] MEDS ORDERED: FENTANYL CITRATE INJ 50 MCG/1 ML 2 ML VIAL IV PRN (11:45)
[2016-12-06] MEDS ORDERED: EpHEDrine SULFATE INJ 50 MG/ML AMP IV PRN (11:45)
[2016-12-06] MEDS ORDERED: ATROPINE SULFATE 0.1 MG/ML 5ML SYR IV PRN (11:45)
--- NOTE | 2016-12-06 12:41 | [facility] Operative Report ---
Operative Report Operative Date Dec 06, 2016. Pre-Operative Diagnosis Headache Post-Operative Diagnosis Headache Procedure(s) Performed Left Temporal Artery Biopsy Surgeon Hydroelectric Production Technician Surgeon(s) Venancio Johnston PA-C Estimated Blood Loss 5ml Findings Lt temporal artery Specimens A. Left temporal artery Anesthesia local/ sedation Complication(s) None Disposition Recovery Room / PACU I attest to the content of the Intraoperative Record and any orders documented therein. Any exceptions are noted below.
[2016-12-06] MEDS ORDERED: HYDR-5688 PO (12:43)
[2016-12-06] MEDS ORDERED: ONDANSETRON INJ 2 MG/ML 2 ML VIAL IV PRN (12:45)
[2016-12-06] MEDS ORDERED: HYDROCODONE/ACETAMOPHEN 5/325MG TAB PO PRN ×2 (12:45)
--- NOTE | 2016-12-06 12:47 | Discharge Instructions ---
Discharge Instructions Date of Service Dec 06, 2016. Visit Reason for Visit: Headache, Diabetes Discharge Discharge Diagnosis / Problem: headache Discharge Goals Goal(s): Decrease discomfort, Improve function, Improve disease control Activity Recommendations Activity Limitations: as noted below Lifting Limitations: gradually increase as tolerated Exercise/Sports Limitations: gradually increase as tolerated May Resume Sexual Activity: when tolerated Shower/Bathe: tomorrow Driving or Machine Use: resume 1 day after discharge SPECIAL CARE INSTRUCTIONS: * Cover incisions and change daily for comfort/drainage. * may leave uncovered if dry * May use ibuprofen for pain as tolerated. * Expect some swelling and bruising. Call your doctor if: * Temperature above 101 degrees * Pain not relieved by pain medicine ordered * There is increased drainage or redness from any incision * You have any unanswered questions or concerns [phone]. FOLLOW UP VISIT: If not already scheduled, please call the office for a follow-up visit. for 2 weeks- [facility] OFFICE PHONE NUMBER: Dr. Sommers Office Anesthesia . Post Anesthesia Instructions: If you have had General Anesthesia or IV Sedation: * Do not drive today. * Resume driving when surgeon permits. * Do not make important decisions or sign legal documents today. * Call surgeon for: 1. Temperature elevations greater than 101 degrees F. 2. Uncontrollable pain. 3. Excessive bleeding. 4. Persistent nausea and vomiting. 5. Medication intolerance (nausea, vomiting or rash). * For nausea and vomiting use only clear liquids such as: tea, soda, bouillon until nausea subsides, then gradually increase diet as tolerated. * If you have any concerns or questions, call your surgeon's office. If physician is unavailable and it is an emergency, call 911 or go to the nearest emergency room. . Diet Recommendations Recommended Home Diet: resume previous diet Procedures Procedures Performed: Left Temporal Artery Biopsy Pending Studies Studies pending at discharge: no Medical Emergencies . Who to Call and When: Medical Emergencies: If at any time you feel your situation is an emergency, please call 911 immediately. . Non-Emergent Contact Non-Emergency issues call your: Primary Care Provider, Surgeon . . "Provider Documentation" section prepared by Guanakito Sommers. .
--- NOTE | 2016-12-06 13:12 | OPERATIVE REPORT ---
DATE OF OPERATION: 12/06/2016 NAME OF OPERATION: Left temporal artery biopsy. PREOPERATIVE DIAGNOSIS: Headache. POSTOPERATIVE DIAGNOSIS: Same. STAFF SURGEON: Dr. Guanakito Sommers. PATIENT CARE TECHNICIAN: Kai Johnston PA-C ANESTHESIA: 1% plain lidocaine with sedation. DESCRIPTION OF PROCEDURE: The patient was brought into the operating room and placed on the operating table in supine position. His left jewish area was prepped and draped in the usual fashion. Using 1% plain lidocaine, skin and subcutaneous tissue were anesthetized just in front of and above the left ear. Incision made, carrying dissection down to the fascia, identifying the temporal artery on the left side, which was ligated using 5-0 Prolene suture and then partially excised. I removed approximately 1.5 cm in length and sent for routine pathology. After appropriate hemostasis, the fascia was reapproximated using 4-0 chromic catgut suture and then, the skin reapproximated using 5-0 Prolene suture. The patient was transferred to recovery room in stable condition. I attest to the content of the Intraoperative Record and any orders documented therein. Any exception s are noted below.
--- NOTE | 2016-12-06 13:14 | Anesthesiology Progress Note ---
Anesthesia Post Op Note Date & Time Dec 06, 2016 at 13:14 Vital Signs Pain Intensity: 0 Vital Signs Past 12 Hours Date Time Temp Pulse Resp B/P (MAP) Pulse Ox O2 Delivery O2 Flow Rate FiO2 12/06/16 13:00 73 16 140/88 98 Nasal Cannula 2 12/06/16 12:50 78 16 141/82 96 Nasal Cannula 2 12/06/16 12:40 70 16 135/92 98 Nasal Cannula 2 12/06/16 12:30 36 77 16 153/82 98 Nasal Cannula 2 12/06/16 10:22 36.5 76 18 179/83 (115) 98 Room Air Notes Mental Status: alert / awake / arousable, participated in evaluation Pt Amnestic to Procedure: Yes Nausea / Vomiting: adequately controlled Pain: adequately controlled Airway Patency, RR, SpO2: stable & adequate BP & HR: stable & adequate Hydration State: stable & adequate Anesthetic Complications: no major complications apparent
[2016-12-06 13:24] VITALS: BP 152/80; PULSE 76; TEMP 36.5; O2SAT 94
[2016-12-06 13:46] VITALS: BP 151/71; PULSE 73; O2SAT 96
[2016-12-06 14:15] VITALS: BP 153/80; PULSE 75; TEMP 36.6; O2SAT 97
== END 2016-12-06 14:35 | disposition home or self-care (01) ==
LOC: C.ACU 09:43
PROVIDERS: ATTEND Surgery
DX: R51 Headache (principal); K21.9 Gastro-esophageal reflux disease without esophagitis; I48.0 Paroxysmal atrial fibrillation; N40.1 Benign prostatic hyperplasia with lower urinary tract symptoms; N13.8 Other obstructive and reflux uropathy; I25.10 Atherosclerotic heart disease of native coronary artery without angina pectoris; Z95.0 Presence of cardiac pacemaker; I25.5 Ischemic cardiomyopathy; I50.42 Chronic combined systolic (congestive) and diastolic (congestive) heart failure; N18.9 Chronic kidney disease, unspecified; F32.9 Major depressive disorder, single episode, unspecified; E11.42 Type 2 diabetes mellitus with diabetic polyneuropathy; E78.5 Hyperlipidemia, unspecified; I10 Essential (primary) hypertension; E03.9 Hypothyroidism, unspecified; M31.6 Other giant cell arteritis; Z79.899 Other long term (current) drug therapy; Z79.4 Long term (current) use of insulin; Z79.52 Long term (current) use of systemic steroids

== ENCOUNTER → 2016-12-08 | Outpatient (CLI) | payer OTHER ==
[~2016-12-08] MED LIST changes: +HYDR-5688 PO; -LACTATED RINGER'S 1000ML 1,000 ML IV SCH
--- NOTE | 2016-12-08 12:14 | DIAGNOSTIC IMAGING REPORT ---
CERVICAL SPINE 6 VIEWS CLINICAL HISTORY: Polymyalgia rheumatica. Neck pain. FINDINGS: AP, lateral, bilateral oblique, odontoid, and swimmer's views of the cervical spine are obtained. No prior studies are available for comparison at the time dictation. The skeletal structures are osteopenic. There is no radiographic evidence of fracture or subluxation. The odontoid process and lateral masses are not well visualized but grossly intact on the open-mouth view. Vertebral body height and alignment are maintained throughout the cervical spine. There is straightening of cervical lordosis. The spinolaminar line is preserved. Anterior osteophytes are seen throughout. There is moderate disc space narrowing seen at C5-C6 and C6-C7 with associated endplate sclerosis. Posterior disc osteophyte complexes at these levels likely contribute to acquired compromise of the central canal. There is multilevel bilateral neural foraminal stenosis, greatest in the lower cervical region seen on the oblique views. Multilevel facet arthropathy is observed. There is advanced atherosclerotic calcification of the left carotid bulb. Pacemaker leads are noted. Partially imaged apical lung parenchyma appears clear noting emphysematous change. IMPRESSION: 1. No acute bony abnormality is identified involving the cervical spine. 2. Osteopenia with multilevel cervical spondylosis as above. 3. The odontoid process and lateral masses are not well visualized but grossly intact as seen on the open-mouth view. The atlantodental articulation is not well assessed. Electronically signed by: Osei Pyle M.D. 12/08/2016 12:12 PM Dictated Date/Time: 12/08/2016 12:08 PM
== END | disposition home or self-care (01) ==
LOC: C.RAD1850 11:49
PROVIDERS: ATTEND Internal Medicine Rheumatology
DX: L03.90 Cellulitis, unspecified (principal); M35.3 Polymyalgia rheumatica; M85.80 Other specified disorders of bone density and structure, unspecified site; M43.02 Spondylolysis, cervical region

== ENCOUNTER → 2017-02-16 | Outpatient (CLI) | payer OTHER | END | disposition home or self-care (01) | LOC: C.LAB1850 14:14 | PROVIDERS: ATTEND Internal Medicine Rheumatology | DX: E27.49 Other adrenocortical insufficiency (principal); M35.3 Polymyalgia rheumatica; E11.9 Type 2 diabetes mellitus without complications; R70.0 Elevated erythrocyte sedimentation rate ==

== ENCOUNTER → 2017-02-25 | Outpatient (CLI) | payer OTHER ==
[2017-02-25 12:19] LABS: ESTIMATED AVERAGE GLUCOSE 206 mg/dl; HA1C FLAG Normal (Normal)
[2017-02-25 12:29] LABS: ALB/GLOB RATIO 0.9 (0.9-2); ALKALINE PHOSPHATASE 61 U/L (45-117); ALT/SGPT 30 U/L (12-78); AST/SGOT 11 U/L (15-37); BLOOD UREA NITROGEN 25 mg/dl (7-18); CALCIUM 9.4 mg/dl (8.5-10.1); CARBON DIOXIDE 28 mmol/L (21-32); CHLORIDE 105 mmol/L (98-107); CREATININE 1.41 mg/dl (0.60-1.40); GLUCOSE 71 mg/dl (70-99); POTASSIUM 3.6 mmol/L (3.5-5.1); SODIUM 138 mmol/L (136-145)
[2017-02-25 12:43] LABS: CREATININE RANDOM URINE 70.9 mg/dl
[2017-02-25 12:54] LABS: RATIO 17.8 mcg/mg (0-30.0)
== END | disposition home or self-care (01) ==
LOC: C.LAB1850 10:48
PROVIDERS: ATTEND Internal Medicine Endocrinology, Diabetes & Metabolism
DX: E11.9 Type 2 diabetes mellitus without complications (principal); M85.80 Other specified disorders of bone density and structure, unspecified site

== ENCOUNTER 2017-03-21 00:28 | Inpatient (IN) | payer OTHER ==
[2017-03-21] VITALS (11 sets, daily range): BP systolic 123–164; BP diastolic 72–88; PULSE 60–113; TEMP 36.2–36.7; O2SAT 91–98; BMI 31.9
[~2017-03-21] VITALS: Ht 177.8 cm; Wt 99.4 kg
[2017-03-21] MEDS ORDERED: PIPERACILLIN/TAZOBACTAM 4.5 GM/100ML D5W IV STA (00:50)
[2017-03-21] MEDS ORDERED: MAGNESIUM SULFATE 1GM / D5W 1 GM BAG IV STA (00:50)
[2017-03-21] MEDS ORDERED: METHYLPREDNISOLONE 125 MG VIAL IV STA (00:50)
[2017-03-21] MEDS ORDERED: VANCOMYCIN INJ 2,250 MG in SODIUM CHLORIDE 0.9% 500ML 500 ML IV STA (00:50)
[2017-03-21] MEDS ORDERED: ALBUT/IPRATROP 3MG/0.5MG NEB 3 ML VIAL INH ONE (01:00)
[2017-03-21 01:26] LABS: ALBUMIN 3.3 gm/dl (3.4-5.0); CALCIUM 9.3 mg/dl (8.5-10.1); CREATININE 1.93 mg/dl (0.60-1.40); POTASSIUM 3.1 mmol/L (3.5-5.1)
[2017-03-21 01:37] LABS: TOTAL PROTEIN 7.7 gm/dl (6.4-8.2)
[2017-03-21] MEDS ORDERED: ACETAMINOPHEN IV 100 ML IV STA (01:45)
[2017-03-21 02:11] LABS: INFLUENZA B ANTIGEN Neg for Influ B (NEG)
--- NOTE | 2017-03-21 02:36 | EMERGENCY ROOM VISIT NOTE ---
History Report prepared by Luís: Marty Patten Under the Supervision of: Dr. Judd Davalos M.D. First contact with patient: 00:43 Chief Complaint: RESPIRATORY PROBLEMS Stated Complaint: BREATHING DIFFICULTY Nursing Triage Summary: Pt has increased dyspnea for 3 weeks with productive cough with green sputum. Went to PCP recently without specific diagnosis. Complains of weakness and loss of appetitie. Wears 2 lpm oxygen at home. EMS gave duoneb, extra albuterol, and 4mg zofran en route. History of Present Illness The patient is a 76 year old male who presents to the Emergency Room with complaints of persistent shortness of breath beginning three weeks ago. He also complains of cough, congestion and fevers. He saw his PCP for his symptoms, but was not started on any new medications. The patient's cough produces a green sputum. He has a history of asthma and CHF. He has a pacemaker in place. The patient is not on any blood thinners. He was previously on supplemental oxygen at home PRN, but was told to use it all the time a few weeks ago. He notes that he sometimes has pain with urination but that this has been present for "a long time". The patient denies diarrhea. Source of History: patient Onset: Three weeks ago Quality: other (shortness of breath) Timing: other (persistent) Associated Symptoms: + fevers, + cough (produces green sputum), No diarrhea Note: Additional symptoms: congestion. Review of Systems See HPI for pertinent positives and negatives. A total of ten systems were reviewed and were otherwise negative. Past Medical & Surgical Medical Problems: (1) Asthma (2) Benign hypertension (3) Chronic congestive heart failure (4) Diabetes mellitus (5) Heart disease (6) NSTEMI, initial episode of care Family History Hypertension Social History Smoking Status: Never Smoker Alcohol Use: none Drug Use: none Marital Status: Housing Status: lives with significant other Occupation Status: employed Current/Historical Medications Scheduled Budesonide/Formoterol Fumarate (Symbicort 80/4.5 Inhaler), 2 PUFFS INH BID Bupropion Hcl (Wellbutrin Xl), 150 MG PO DAILY Fenofibrate (Tricor ), 145 MG PO HS Finasteride (Proscar), 5 MG PO QAM Furosemide (Lasix), 40 MG PO QAM Home O2 Therapy (Oxygen), 2 LITERS NA CONTINOUS Hydrocortisone (Cortef), 10 MG PO QPM Hydrocortisone (Cortef), 20 MG PO QAM Insulin Glargine (Lantus), 55 UNITS SC BID Levothyroxine Sodium (Levothyroxine Sodium), 75 MCG PO QAM Metoprolol Succinate (Toprol Xl), 25 MG PO DAILY Potassium Ext Rel (Klor-Con), 20 MEQ PO DAILY Pravastatin Sodium (Pravastatin Sodium), 1 TAB PO QPM Zafirlukast (Zafirlukast), 20 MG PO BID Scheduled PRN Albuterol Hfa (Ventolin Hfa), 2 PUFFS INH QID PRN for Shortness of Breath Allergies Coded Allergies: Aspirin (Verified Allergy, Unknown, DOES NOT TAKE D/T ASTHMA, 03/21/17) Physical Exam Vital Signs Date Time Temp Pulse Resp B/P (MAP) Pulse Ox O2 Delivery O2 Flow Rate FiO2 03/21/17 02:01 102/58 03/21/17 01:58 99 29 100 03/21/17 01:47 105 95 Nasal Cannula 2.0 03/21/17 01:43 108 34 95 03/21/17 01:31 136/93 03/21/17 01:28 101 34 95 03/21/17 01:13 145 39 95 03/21/17 01:00 150/72 03/21/17 00:58 150 28 03/21/17 00:51 79 03/21/17 00:43 115 24 93 Nasal Cannula 2.0 03/21/17 00:36 143/61 03/21/17 00:36 38.6 115 34 143/61 96 Nasal Cannula 2.0 Physical Exam GENERAL: Awake, alert, in mild distress HENT: Normocephalic, atraumatic. Dry mucous membranes. EYES: Normal conjunctiva. Sclera non-icteric. NECK: Supple. No nuchal rigidity. FROM. No JVD. RESPIRATORY: Diffuse rhonchi and wheezing throughout. Dyspneic. CARDIAC: ST. Extremities warm and well perfused. Pulses equal. ABDOMEN: Obese, soft, non-distended. No tenderness to palpation. No rebound or guarding. No masses. RECTAL: Deferred. MUSCULOSKELETAL: Chest examination reveals no tenderness. The back is symmetrical on inspection without obvious abnormality. There is no CVA tenderness to palpation. No joint edema. LOWER EXTREMITIES: Calves are equal size bilaterally and non-tender. No edema. No discoloration. NEURO: Normal sensorium. No sensory or motor deficits noted. SKIN: No rash or jaundice noted. Medical Decision & Procedures ER Provider Diagnostic Interpretation: One View Chest X-ray interpreted by me: right middle and right lower lobe infiltrate vs atelectasis. Cardiomegaly. Laboratory Results 03/21/17 01:43 Red Blood Count 4.70, Mean Corpuscular Volume 89.1, Mean Corpuscular Hemoglobin 28.9, Mean Corpuscular Hemoglobin Concent 32.5, Mean Platelet Volume , Neutrophils (%) (Auto) 82.3, Lymphocytes (%) (Auto) 8.5, Monocytes (%) (Auto) 6.9, Eosinophils (%) (Auto) 0.4, Basophils (%) (Auto) 0.2, Neutrophils # (Auto) 8.93, Lymphocytes # (Auto) 0.92, Monocytes # (Auto) 0.75, Eosinophils # (Auto) 0.04, Basophils # (Auto) 0.02 03/21/17 00:18 Test 03/21/17 00:00 03/21/17 00:18 03/21/17 01:20 03/21/17 01:43 Influenza Type A Antigen POS for Influ A (NEG) Influenza Type B Antigen Neg for Influ B (NEG) Activated Partial Thromboplast Time 29.2 SECONDS (21.0-31.0) Partial Thromboplastin Ratio 1.1 Anion Gap 9.0 mmol/L (3-11) Est Creatinine Clear Calc Drug Dose 39.4 ml/min Estimated GFR () 37.6 Estimated GFR (Non- 32.4 BUN/Creatinine Ratio 10.1 (10-20) Calcium Level 9.3 mg/dl (8.5-10.1) Magnesium Level 1.9 mg/dl (1.8-2.4) Total Bilirubin 1.2 mg/dl (0.2-1) Direct Bilirubin 0.3 mg/dl (0-0.2) Aspartate Amino Transf (AST/SGOT) 21 U/L (15-37) Alanine Aminotransferase (ALT/SGPT) 26 U/L (12-78) Alkaline Phosphatase 49 U/L (45-117) Pro-B-Type Natriuretic Peptide 4028 pg/ml (0-1800) Total Protein 7.7 gm/dl (6.4-8.2) Albumin 3.3 gm/dl (3.4-5.0) Lipase 73 U/L (73-393) Lactic Acid Level 1.8 mmol/L (0.4-2.0) White Blood Count 10.84 K/uL (4.8-10.8) Red Blood Count 4.70 M/uL (4.7-6.1) Hemoglobin 13.6 g/dL (14.0-18.0) Hematocrit 41.9 % (42-52) Mean Corpuscular Volume 89.1 fL (80-100) Mean Corpuscular Hemoglobin 28.9 pg (25-34) Mean Corpuscular Hemoglobin Concent 32.5 g/dl (32-36) Platelet Count K/uL (130-400) Mean Platelet Volume fL (7.4-10.4) Neutrophils (%) (Auto) 82.3 % Lymphocytes (%) (Auto) 8.5 % Monocytes (%) (Auto) 6.9 % Eosinophils (%) (Auto) 0.4 % Basophils (%) (Auto) 0.2 % Neutrophils # (Auto) 8.93 K/uL (1.4-6.5) Lymphocytes # (Auto) 0.92 K/uL (1.2-3.4) Monocytes # (Auto) 0.75 K/uL (0.11-0.59) Eosinophils # (Auto) 0.04 K/uL (0-0.5) Basophils # (Auto) 0.02 K/uL (0-0.2) RDW Standard Deviation 56.5 fL (36.4-46.3) RDW Coefficient of Variation 17.1 % (11.5-14.5) Immature Granulocyte % (Auto) 1.7 % Immature Granulocyte # (Auto) 0.18 K/uL (0.00-0.02) Nucleated RBC Absolute Count (auto) 0.03 K/uL (0-0) Nucleated Red Blood Cells % 0.3 % Test 03/21/17 02:16 03/21/17 03:08 Venous Blood pH 7.38 (7.36-7.41) Venous Blood Partial Pressure CO2 44 mmHg (38.0-50.0) Venous Blood Partial Pressure O2 35 mmHg Venous Blood HCO3 26 mmol/L Venous Blood Oxygen Saturation 63.7 % Venous Blood Base Excess 0.4 mEq/L Troponin I 0.422 ng/ml (0-0.045) Triglycerides Level 164 mg/dl (0-150) Cholesterol Level 143 mg/dl (0-200) HDL Cholesterol 25 mg/dl LDL Cholesterol, Calculated 85 mg/dl VLDL Cholesterol, Calculated 33 mg/dl Cholesterol/HDL Ratio 5.7 Laboratory results reviewed by me Medications Administered Medications (Trade) Dose Ordered Sig/Laila Route Start Time Stop Time Status Last Admin Dose Admin Albuterol/ Ipratropium (Duoneb) 12 ml ONE ONCE INH 03/21/17 01:00 03/21/17 01:01 DC 03/21/17 01:45 12 ML Methylprednisolone Sodium Succinate (Solu-Medrol IV) 125 mg NOW STAT IV 03/21/17 00:50 03/21/17 00:55 DC 03/21/17 01:03 125 MG Magnesium Sulfate (Magnesium Sulfate) 2 gm NOW STAT IV 03/21/17 00:50 03/21/17 00:55 DC 03/21/17 01:07 2 GM Vancomycin HCl 2250 mg/Sodium Chloride 545 ml @ 200 mls/hr ONE STAT IV 03/21/17 00:50 03/21/17 03:33 DC 03/21/17 01:43 200 MLS/HR Piperacillin Sod/ Tazobactam Sod (Zosyn Iv) 4.5 gm NOW STAT IV 03/21/17 00:50 03/21/17 00:55 DC 03/21/17 01:23 4.5 GM Acetaminophen 100 ml @ 400 mls/hr NOW STAT IV 03/21/17 01:45 03/21/17 01:59 DC 03/21/17 02:03 400 MLS/HR Oseltamivir Phosphate (Tamiflu Cap) 75 mg NOW STAT PO 03/21/17 02:37 03/21/17 02:38 DC 03/21/17 03:20 75 MG Potassium Chloride (Klor-Con M10) 40 meq NOW STAT PO 03/21/17 03:00 03/21/17 03:07 DC 03/21/17 03:20 40 MEQ Heparin Sodium/ Dextrose (Heparin 25,000 Unit/500ml D5W) 25,000 unit STK-MED ONCE .ROUTE 03/21/17 04:02 03/21/17 04:03 DC 03/21/17 04:14 25,000 UNIT ECG Indication: SOB/dyspnea Rate (beats per minute): 104 Rhythm: sinus tachycardia Findings: PAC, RBBB, left axis deviation Comparison ECG Date: Oct 26, 2016 Change: no significant change ED Course 0045: The patient was evaluated in room B12B. A complete history and physical exam was performed. 0235: Upon reexamination, the patient was resting comfortably. I discussed the test results and treatment plan with him. The patient will be evaluated for further management. Medical Decision I reviewed the patient's past medical history, medications, and the nursing notes as described above. The patient's presentation and history were concerning for pneumonia, COPD, CHF , bronchitis, ACS, and PE. The patient is a 76-year-old gentleman with a past medical history of COPD, CHF , factor V Leiden who presents to emergency department with worsening cough congestion over the past several weeks but became abruptly worse over the past couple of days per hpi. On arrival the patient is febrile, tachycardic and tachypneic in mild distress. Labs notable for Mild Troponin elevation to 0.3 in the setting of acute on chronic renal failure with creatinine of 1.9. BNP also elevated in this setting however bedside US without significant B-lines to suggest pulmonary edema and IVC with > 50% variability suggestion intravascular depletion thus will hold on diuresis at this time. EKG with baseline RBBB, isolated V2 with MARLENE and otherwise without evidence of ischemia, will continue to trend troponins for now. Chest x-ray with possible right middle right lower lobe infiltrate versus atelectasis in the setting of the patient's fever and dyspnea will treat for pneumonia and sepsis with broad-spectrum antibiotics. Influenza A was also positive. Given the patient report of rapid worsening of symptoms within 48 hours will additionally treat with Tamiflu given his comorbidities. Also treated for COPD exacerbation component with steroids, nebs , and magnesium. Case d/w Dr. Soares who will admit the patient for further management. Medication Reconcilliation Current Medication List: was personally reviewed by me Blood Pressure Screening Patient's blood pressure: Elevated blood pressure Blood pressure disposition: Elevated BP felt to be situational Consults Time Called: 0235 Consulting Physician: Dr. Fany MARAVILLA Hospitalist Returned Call: 0240 I discussed the patient with Dr. Fany LAWRENCE will evaluate the patient for further treatment. Impression Primary Impression: Sepsis Additional Impressions: Influenza A Pneumonia COPD exacerbation Critical Care I have personally spent greater than 60 minutes of critical care time in the direct management of this patient. This includes bedside care, interpretation of diagnostic studies, and testing, discussion with consultants, patient, and family members, and other required patient management activities. This 60 minutes is in excess of all separately billable procedures. Scribe Attestation The scribe's documentation has been prepared under my direction and personally reviewed by me in its entirety. I confirm that the note above accurately reflects all work, treatment, procedures, and medical decision making performed by me. Departure Information Dispostion Being Evaluated By Hospitalist Referrals Maegan Delgado M.D. (PCP) Patient Instructions My [facility] Problem Qualifiers
[2017-03-21] MEDS ORDERED: OSELTAMIVIR PHOSPHATE 75 MG CAP PO STA (02:37)
[2017-03-21 02:41] LABS: BASO % 0.2 %; BASO ABS # 0.02 K/uL (0-0.2); EOS % 0.4 %; EOS ABS # 0.04 K/uL (0-0.5); HEMATOCRIT 41.9 % (42-52); HEMOGLOBIN 13.6 g/dL (14.0-18.0); IG# 0.18 K/uL (0.00-0.02); LYMPH % 8.5 %; LYMPH ABS # 0.92 K/uL (1.2-3.4); MEAN CELL VOLUME 89.1 fL (80-100); MEAN CORPUSCULAR HEMOGLOBIN 28.9 pg (25-34); MEAN CORPUSCULAR HGB CONC 32.5 g/dl (32-36); MONO % 6.9 %; MONO ABS # 0.75 K/uL (0.11-0.59); NEUT % 82.3 %; NEUT ABS # 8.93 K/uL (1.4-6.5); NUCLEATED RED BLOOD CELL ABS 0.03 K/uL (0-0); RED CELL DISTRIBUTION WIDTH CV 17.1 % (11.5-14.5); RED CELL DISTRIBUTION WIDTH SD 56.5 fL (36.4-46.3); WHITE BLOOD COUNT 10.84 K/uL (4.8-10.8)
[2017-03-21] MEDS ORDERED: POTASSIUM CHLORIDE 10 MEQ TABCR PO STA (03:00)
[2017-03-21] MEDS ORDERED: OXGN (03:02)
[2017-03-21] MEDS ORDERED: ACETAMINOPHEN 325 MG TAB PO PRN (03:45)
[2017-03-21] MEDS ORDERED: NITROGLYCERIN 0.4 MG SL PER TAB CHARGE SL PRN (03:45)
[2017-03-21] MEDS ORDERED: ONDANSETRON 8MG OD TAB PO PRN (03:45)
[2017-03-21] MEDS ORDERED: HEPARIN 25000 UNIT/500 ML D5W ONE (04:02)
[2017-03-21 04:22] LABS: PTT PATIENT 29.2 SECONDS (21.0-31.0)
--- NOTE | 2017-03-21 04:49 | History and Physical ---
History & Physical Date & Time of Service: Mar 21, 2017 at 04:33 Chief Complaint: Breathing Difficulty Primary Care Physician: Maegan Delgado M.D. History of Present Illness Source: patient, spouse The patient is a 76-year-old male, accompanied by his , who presents to the emergency department with 3 weeks of shortness of breath and generally not feeling well. Over the past few days, his symptoms have worsened. He reports cough of intermittent green sputum, chest congestion, fevers, generalized myalgias and arthralgias, and shortness of breath. He also has developed intermittent chest heaviness. Past Medical/Surgical History Medical Problems: (1) Asthma Status: Chronic (2) Benign hypertension Status: Chronic (3) Chronic congestive heart failure Status: Chronic (4) Diabetes mellitus Status: Chronic (5) Heart disease Status: Chronic Family History Hypertension Social History Smoking Status: Never Smoker Smokeless Tobacco Use: No Alcohol Use: none Drug Use: none Marital Status: Housing status: lives with family Occupational Status: employed Immunizations History of Influenza Vaccine: Yes Influenza Vaccine Date: Jan 02, 2013 History of Tetanus Vaccine?: UTD History of Pneumococcal: Yes Pneumococcal Date: Jun 18, 2011 History of Hepatitis B Vaccine: No Multi-Drug Resistant Organisms History of MDRO: No Allergies Coded Allergies: Aspirin (Verified Allergy, Unknown, DOES NOT TAKE D/T ASTHMA, 03/21/17) Home Medications Scheduled Budesonide/Formoterol Fumarate (Symbicort 80/4.5 Inhaler), 2 PUFFS INH BID Bupropion Hcl (Wellbutrin Xl), 150 MG PO DAILY Fenofibrate (Tricor ), 145 MG PO HS Finasteride (Proscar), 5 MG PO QAM Furosemide (Lasix), 40 MG PO QAM Home O2 Therapy (Oxygen), 2 LITERS NA CONTINOUS Hydrocortisone (Cortef), 10 MG PO QPM Hydrocortisone (Cortef), 20 MG PO QAM Insulin Glargine (Lantus), 55 UNITS SC BID Levothyroxine Sodium (Levothyroxine Sodium), 75 MCG PO QAM Metoprolol Succinate (Toprol Xl), 25 MG PO DAILY Potassium Ext Rel (Klor-Con), 20 MEQ PO DAILY Pravastatin Sodium (Pravastatin Sodium), 1 TAB PO QPM Zafirlukast (Zafirlukast), 20 MG PO BID Scheduled PRN Albuterol Hfa (Ventolin Hfa), 2 PUFFS INH QID PRN for Shortness of Breath Review of Systems The patient denies palpitations, lower extremity swelling, vision change, hearing change, sore throat, chills, sweats, vomiting, diarrhea or constipation, abdominal pain , pelvic pain, blood in urine or stool, dysuria, urinary frequency or urgency, lightheadedness , dizziness, headache, memory loss, loss of consciousness, rash, abnormal bruising or bleeding, imbalance, focal weakness, numbness or tingling in arms or legs, back or neck pain, or night sweats. The review of systems is otherwise negative other than for that already noted above, and at least 10 systems have been reviewed. Physical Exam Vital Signs Date Time Temp Pulse Resp B/P (MAP) Pulse Ox O2 Delivery O2 Flow Rate FiO2 03/21/17 02:01 102/58 03/21/17 01:58 99 29 100 03/21/17 01:47 105 95 Nasal Cannula 2.0 03/21/17 01:43 108 34 95 03/21/17 01:31 136/93 03/21/17 01:28 101 34 95 03/21/17 01:13 145 39 95 03/21/17 01:00 150/72 03/21/17 00:58 150 28 03/21/17 00:51 79 03/21/17 00:43 115 24 93 Nasal Cannula 2.0 03/21/17 00:36 143/61 03/21/17 00:36 38.6 115 34 143/61 96 Nasal Cannula 2.0 The patient is awake, alert and oriented 3, normocephalic and atraumatic, lying in bed and in no acute distress. HEENT--PERRL, EOMI, mucous membranes and oropharynx dry. Neck--supple, no JVD or bruits, thyroid normal, trachea midline, no adenopathy. Heart--tachycardic, PACs. No murmurs, rubs or gallops. Lungs--coarse breath sounds bilaterally, no respiratory distress, no accessory muscle use. Abdomen--normal bowel sounds and soft, nontender. Mildly distended and tympanitic, no hernias or masses, Extremities--no cyanosis, clubbing or edema. There are good distal pulses b/l. Dermatologic--normal skin turgor, normal color, warm and dry, no abnormal lymph nodes, no rash. Neurologic--cranial nerves II through XII grossly intact. Rheumatologic--normal range of motion. Psychiatric--normal affect. Diagnostics Laboratory Results Results Past 24 Hours Test 03/21/17 00:00 03/21/17 00:18 03/21/17 01:20 03/21/17 01:43 Range/Units Influenza Type A Antigen POS for Influ A NEG Influenza Type B Antigen Neg for Influ B NEG Activated Partial Thromboplast Time 29.2 21.0-31.0 SECONDS Partial Thromboplastin Ratio 1.1 Sodium Level 135 136-145 mmol/L Potassium Level 3.1 3.5-5.1 mmol/L Chloride Level 98 98-107 mmol/L Carbon Dioxide Level 28 21-32 mmol/L Anion Gap 9.0 3-11 mmol/L Blood Urea Nitrogen 19 7-18 mg/dl Creatinine 1.93 0.60-1.40 mg/dl Est Creatinine Clear Calc Drug Dose 39.4 ml/min Estimated GFR () 37.6 Estimated GFR (Non- 32.4 BUN/Creatinine Ratio 10.1 10-20 Random Glucose 130 70-99 mg/dl Calcium Level 9.3 8.5-10.1 mg/dl Magnesium Level 1.9 1.8-2.4 mg/dl Total Bilirubin 1.2 0.2-1 mg/dl Direct Bilirubin 0.3 0-0.2 mg/dl Aspartate Amino Transf (AST/SGOT) 21 15-37 U/L Alanine Aminotransferase (ALT/SGPT) 26 12-78 U/L Alkaline Phosphatase 49 45-117 U/L Troponin I 0.310 0-0.045 ng/ml Pro-B-Type Natriuretic Peptide 4028 0-1800 pg/ml Total Protein 7.7 6.4-8.2 gm/dl Albumin 3.3 3.4-5.0 gm/dl Lipase 73 73-393 U/L Lactic Acid Level 1.8 0.4-2.0 mmol/L White Blood Count 10.84 4.8-10.8 K/uL Red Blood Count 4.70 4.7-6.1 M/uL Hemoglobin 13.6 14.0-18.0 g/dL Hematocrit 41.9 42-52 % Mean Corpuscular Volume 89.1 80-100 fL Mean Corpuscular Hemoglobin 28.9 25-34 pg Mean Corpuscular Hemoglobin Concent 32.5 32-36 g/dl Platelet Count 130-400 K/uL Mean Platelet Volume 7.4-10.4 fL Neutrophils (%) (Auto) 82.3 % Lymphocytes (%) (Auto) 8.5 % Monocytes (%) (Auto) 6.9 % Eosinophils (%) (Auto) 0.4 % Basophils (%) (Auto) 0.2 % Neutrophils # (Auto) 8.93 1.4-6.5 K/uL Lymphocytes # (Auto) 0.92 1.2-3.4 K/uL Monocytes # (Auto) 0.75 0.11-0.59 K/uL Eosinophils # (Auto) 0.04 0-0.5 K/uL Basophils # (Auto) 0.02 0-0.2 K/uL RDW Standard Deviation 56.5 36.4-46.3 fL RDW Coefficient of Variation 17.1 11.5-14.5 % Immature Granulocyte % (Auto) 1.7 % Immature Granulocyte # (Auto) 0.18 0.00-0.02 K/uL Nucleated RBC Absolute Count (auto) 0.03 0-0 K/uL Nucleated Red Blood Cells % 0.3 % Test 03/21/17 02:16 03/21/17 03:08 Range/Units Venous Blood pH 7.38 7.36-7.41 Venous Blood Partial Pressure CO2 44 38.0-50.0 mmHg Venous Blood Partial Pressure O2 35 mmHg Venous Blood HCO3 26 mmol/L Venous Blood Oxygen Saturation 63.7 % Venous Blood Base Excess 0.4 mEq/L Troponin I 0.422 0-0.045 ng/ml Triglycerides Level 164 0-150 mg/dl Cholesterol Level 143 0-200 mg/dl HDL Cholesterol 25 mg/dl LDL Cholesterol, Calculated 85 mg/dl VLDL Cholesterol, Calculated 33 mg/dl Cholesterol/HDL Ratio 5.7 Microbiology Results 03/21/17 Blood Culture, Received Pending 03/21/17 Blood Culture, Received Pending EKG EKG shows sinus tachycardia at 108 bpm, ST-T wave changes in leads 1 and aVL, with ST elevation in lead 3, stable upon repeat EKG, but new compared to previous Impression Assessment and Plan NSTEMI/EKG changes suggestive of inferolateral ischemia/CAD/CHF/status post AICD -- Initial troponin elevated at 0.310. The patient will be admitted to telemetry for serial cardiac enzymes, cardiac rhythm monitoring and a 2-D echocardiogram with Dopplers. Continue metoprolol succinate 25 mg by mouth daily. No aspirin due to adverse reaction Hold furosemide 40 mg every morning due to mild dehydrated state Consult his process pumper Dr. Haley Influenza A/URI-- Continue Tamiflu 75 mg by mouth twice a day begun in the ED Received vancomycin and Zosyn at the direction of the ED Place on ceftriaxone 1 g IV daily Guaifenesin extended release 600 mg by mouth twice a day Xopenex/Atrovent nebulizer every 6 hours while awake and every 2 hours when necessary Pulmicort Respules 0.5 mg inhaled twice a day Diabetes mellitus-- continue Lantus insulin 55 units subcutaneous twice a day Expect that the blood sugar will increase since received Solu-Medrol 125 mg IV at direction of the ED Place on Accu-Cheks before meals and at bedtime with NovoLog coverage per scale Adrenal insufficiency-- Change Cortef 10 mg by mouth every afternoon and 20 mg by mouth every morning, 20 mg by mouth twice a day Hyperlipidemia-- Continue fenofibrate 145 mg at bedtime and pravastatin at bedtime BPH-- Continue finasteride 5 mg by mouth daily Hypothyroidism-- Continue levothyroxine sodium 75 g every morning Depression-- continue Wellbutrin XL 150 mg by mouth daily Level of Care Telemetry Advanced Directives Existing Advance Directive: No Existing Living Will: No Existing Power of Surgery Manager: No Resuscitation Status FULL RESUSCITATION VTE Prophylaxis VTE Risk Assessment Done? Y/N: Yes Risk Level: High Given or contraindicated: Other Anticoagulation (heparin standard concentration with bolus per protocol)
[2017-03-21] MEDS ORDERED: DEXTROSE 50% 50 ML SYR IV PRN (06:00)
[2017-03-21] MEDS ORDERED: IPRATROPIUM BROMIDE NEB SOLN 0.02% 2.5 ML VIAL INH PRN (06:00)
[2017-03-21] MEDS ORDERED: HEPARIN 25,000 UNIT/500ML D5W 500 ML IV PRN (06:00)
[2017-03-21] MEDS ORDERED: GLUCOSE 10 TABS/TUBE PO PRN (06:00)
[2017-03-21] MEDS ORDERED: GLUCAGON FOR INJ 1 MG VIAL SQ PRN (06:00)
[2017-03-21] MEDS ORDERED: GLUCOSE 40% GEL 15 GM TUBE PO PRN (06:00)
[2017-03-21] MEDS ORDERED: LEVALBUTEROL 1.25MG/0.5ML NEB INH PRN (06:00)
[2017-03-21] MEDS: LEVOTHYROXINE 75 MCG TAB PO SCH (06:27)
[2017-03-21] MEDS: CEFTRIAXONE SOD INJ 1 GM in DEXTROSE 5% ADD-VANTAGE 50ML 50 ML IV SCH (06:27)
[2017-03-21] MEDS: BUDESONIDE 0.5 MG/2 ML VIAL (PULMICORT) INH SCH ×2 (07:15→20:24)
[2017-03-21] MEDS: IPRATROPIUM BROMIDE NEB SOLN 0.02% 2.5 ML VIAL INH SCH ×3 (07:15→20:24)
[2017-03-21] MEDS: LEVALBUTEROL 1.25MG/0.5ML NEB INH SCH ×3 (07:15→20:24)
[2017-03-21] MEDS: METOPROLOL SUCC 25MG EXT REL TAB PO SCH (07:37)
[2017-03-21] MEDS: FINASTERIDE 5 MG TAB PO SCH (07:37)
[2017-03-21] MEDS: POTASSIUM CHLORIDE 20 MEQ TABCR PO SCH (07:37)
[2017-03-21] MEDS: OSELTAMIVIR PHOSPHATE 75 MG CAP PO SCH ×2 (07:37→21:10)
[2017-03-21] MEDS: BuPROPion XL 150 MG TABCR PO SCH (07:38)
[2017-03-21] MEDS: INSULIN ASPART 100 UNITS/ML 3 ML PEN SC SCH ×4 (07:44→21:00)
[2017-03-21 07:47] LABS: HEMOGLOBIN A1C 8.1 % (4.5-5.6)
[2017-03-21] MEDS ORDERED: INSULIN GLARGINE SOLOSTAR 100 UNITS/ML 3 ML PEN SC SCH (09:00)
[2017-03-21] MEDS ORDERED: LEVALBUTEROL/IPRATROPIUM NEB INH SCH (09:00)
[2017-03-21] MEDS ORDERED: HYDROCORTISONE 10 MG TAB PO SCH (09:00)
[2017-03-21] MEDS ORDERED: POTASSIUM CHLORIDE 20 MEQ TABCR PO ONE (10:45)
[2017-03-21] MEDS ORDERED: FUROSEMIDE INJ 40 MG in SYRINGE 0 ML IV ONE (10:45)
--- NOTE | 2017-03-21 11:02 | DIAGNOSTIC IMAGING REPORT ---
SINGLE VIEW CHEST CLINICAL HISTORY: Atypical chest pain. FINDINGS: An AP, portable, upright chest radiograph is compared to chest x-ray and chest CT dated 10/26/2016. The examination is degraded by portable technique and patient rotation. A 2-lead cardiac pacemaker is unchanged in position and partially obscures the left upper chest. The heart is enlarged and there is atherosclerotic calcification of the thoracic aorta. The pulmonary vasculature is noncongested. There is bibasilar atelectasis. Airspace opacities are present the left lung base and likely represent atelectasis. No pleural effusion or pneumothorax is seen. Apical scarring is observed. The skeletal structures are osteopenic. There are healed right-sided rib fractures. IMPRESSION: 1. Cardiomegaly and cardiac pacemaker. There is no radiographic evidence of congestive failure. 2. Left basilar airspace opacities likely represent atelectasis. Cortical clinically for evidence of superimposed pneumonia. Electronically signed by: Osei Pyle M.D. 03/21/2017 11:01 AM Dictated Date/Time: 03/21/2017 10:58 AM
--- NOTE | 2017-03-21 11:05 | Cardiology Consultation ---
Cardiology Consultation Date of Consultation: Mar 21, 2017. Requesting Physician: Lisa Reason for Consultation: Dyspnea History of Present Illness Patient is a 68-year-old gentleman with a history of coronary artery disease and congestive heart failure who has been experiencing worsening symptoms of shortness of breath. The patient states that he has an element of chronic dyspnea with activity which is fairly mild in nature. Over the past few weeks he has been having more difficulty with breathing and actually has been placed on continuous supplemental oxygen by his primary care physician. At this point the patient will uses oxygen on an as-needed basis. He is generally treated for persistent and severe asthma. In addition to the worsening breathing difficulty the patient has had worsening weakness and fatigue. He was also felt by his to have an element of confusion. He did not report subjective fevers or chills. He did however have an element of overall body aches and pains. This did not exclusively involve chest discomfort. He states that when he is actively becomes markedly dyspneic but does not have chest pressure or chest pain. He has not been aware of any new palpitations but does occasionally have a sense of irregularity in his heartbeat. This is longstanding in very transient in nature. He has a remote history of syncope but has not suffered a syncopal episode recently. He has not been describing dizziness or lightheadedness. He has not noticed significant edema but he has noticed a weight gain over the past few days. He has not report any dietary indiscretion or increased sodium intake recently. Past Medical/Surgical History Coronary artery disease Patient had abnormal stress echocardiogram in August 2008. This prompted a cardiac catheterization which revealed subtotal occlusion of the PDA with left to right collaterals. 70 percent ostial RCA. 40 percent mid RCA. Ischemic cardiomyopathy Echocardiogram performed October 2016 with an EF of 45 percent. Stage I diastolic dysfunction. 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 He has been eating and drinking well. No gastrointestinal symptoms such as diarrhea nausea or vomiting. All Other Systems: Reviewed and Negative Allergies Coded Allergies: Aspirin (Verified Allergy, Unknown, DOES NOT TAKE D/T ASTHMA, 03/21/17) Medications Current Inpatient Medications Medications (Trade) Dose Ordered Sig/Laila Route Start Time Stop Time Status Last Admin Dose Admin Acetaminophen (Tylenol Tab) 650 mg Q4H PRN PO 03/21/17 03:45 04/20/17 03:44 Nitroglycerin (Nitrostat Tab) 0.4 mg UD PRN SL 03/21/17 03:45 04/20/17 03:44 Bupropion HCl (Wellbutrin-Xl Tab) 150 mg DAILY PO 03/21/17 09:00 04/20/17 08:59 03/21/17 07:38 150 MG Fenofibrate (Tricor Tab) 145 mg HS PO 03/21/17 21:00 04/20/17 20:59 Finasteride (Proscar Tab) 5 mg QAM PO 03/21/17 09:00 04/20/17 08:59 03/21/17 07:37 5 MG Hydrocortisone (Cortef Tab) 20 mg BID PO 03/21/17 09:00 04/20/17 08:59 03/21/17 07:38 20 MG Insulin Glargine (Lantus Solostar Pen) 55 units BID SC 03/21/17 09:00 04/20/17 08:59 03/21/17 07:45 55 UNITS Levothyroxine Sodium (Synthroid Tab) 75 mcg DAILYBB PO 03/21/17 06:00 04/20/17 05:59 03/21/17 06:27 75 MCG Metoprolol Succinate (Toprol Xl Tab) 25 mg DAILY PO 03/21/17 09:00 04/20/17 08:59 03/21/17 07:37 25 MG Potassium Chloride (Klor-Con Tab) 20 meq DAILY PO 03/21/17 09:00 04/20/17 08:59 03/21/17 07:37 20 MEQ Pravastatin Sodium (Pravachol Tab) 40 mg QPM PO 03/21/17 21:00 04/20/17 20:59 Ondansetron HCl (Zofran Odt) 8 mg Q6H PRN PO 03/21/17 03:45 04/20/17 03:44 Ceftriaxone Sodium 1 gm/ Dextrose 50 ml @ 100 mls/hr Q24H IV 03/21/17 06:00 03/28/17 05:59 03/21/17 06:27 100 MLS/HR Budesonide (Pulmicort Respules 0.5MG/ 2ML Neb Soln) 0.5 mg BIDR INH 03/21/17 08:00 04/20/17 07:59 03/21/17 07:15 0.5 MG Oseltamivir Phosphate (Tamiflu Cap) 75 mg BID PO 03/21/17 09:00 03/26/17 08:59 03/21/17 07:37 75 MG Heparin Sodium/ Dextrose 500 ml @ 32 mls/hr [id number] PRN IV 03/21/17 06:00 04/20/17 05:59 Ipratropium [place] (Atrovent 0.02% 0.5MG/2.5ML Neb) 0.5 mg Q6R INH 03/21/17 09:00 04/20/17 08:59 03/21/17 07:15 0.5 MG Levalbuterol (Xopenex 1.25MG/ 0.5ML Neb) 1.25 mg Q6R INH 03/21/17 09:00 04/20/17 08:59 03/21/17 07:15 1.25 MG Ipratropium [place] (Atrovent 0.02% 0.5MG/2.5ML Neb) 0.5 mg Q2H PRN INH 03/21/17 06:00 04/20/17 05:59 Levalbuterol (Xopenex 1.25MG/ 0.5ML Neb) 1.25 mg Q2H PRN INH 03/21/17 06:00 04/20/17 05:59 Glucose (Glucose 40% Gel) 15-30 GRAMS 15 GRAMS... UD PRN PO 03/21/17 06:00 04/20/17 05:59 Glucose (Glucose Chew Tab) 4-8 Tablets 4 Tabl... UD PRN PO 03/21/17 06:00 04/20/17 05:59 Dextrose (Dextrose 50% 50ML Syringe) 25-50ML OF 50% DW IV FOR... UD PRN IV 03/21/17 06:00 04/20/17 05:59 Glucagon (Glucagon Inj) 1 mg UD PRN SQ 03/21/17 06:00 04/20/17 05:59 Insulin Aspart (novoLOG ASPART) SLIDING SCALE G... ACHS SC 03/21/17 07:00 04/20/17 06:59 03/21/17 07:44 13 UNITS Furosemide 40 mg/ Syringe 4 ml @ 4 mls/min NOW ONCE IV 03/21/17 10:45 03/21/17 10:46 Potassium Chloride (Klor-Con Tab) 40 meq NOW ONCE PO 03/21/17 10:45 03/21/17 10:46 Physical Exam Vital Signs Past 12 Hours Date Time Temp Pulse Resp B/P (MAP) Pulse Ox O2 Delivery O2 Flow Rate FiO2 03/21/17 08:00 Nasal Cannula 4.0 03/21/17 07:15 76 97 Nasal Cannula 2.0 03/21/17 07:04 36.5 62 18 146/72 (96) 98 Nasal Cannula 2.0 03/21/17 05:29 36.5 92 24 123/88 96 Nasal Cannula 2.0 03/21/17 05:11 80 19 95 03/21/17 05:00 111/60 03/21/17 04:56 89 15 95 03/21/17 04:51 37.3 83 22 96 03/21/17 04:36 97 17 97 03/21/17 04:30 120/66 03/21/17 04:21 83 20 95 03/21/17 04:08 106/57 03/21/17 04:06 85 23 94 03/21/17 03:51 68 16 92 03/21/17 03:36 99 23 91 03/21/17 03:30 102/60 03/21/17 03:21 111 24 95 03/21/17 03:06 97 16 97 03/21/17 03:01 95/48 03/21/17 02:51 115 27 97 03/21/17 02:36 94 26 98 03/21/17 02:30 111/67 03/21/17 02:21 90 20 98 03/21/17 02:06 99 25 98 03/21/17 02:01 102/58 03/21/17 01:58 99 29 100 03/21/17 01:47 105 95 Nasal Cannula 2.0 03/21/17 01:43 108 34 95 03/21/17 01:31 136/93 03/21/17 01:28 101 34 95 03/21/17 01:13 145 39 95 03/21/17 01:00 150/72 03/21/17 00:58 150 28 03/21/17 00:51 79 03/21/17 00:43 115 24 93 Nasal Cannula 2.0 03/21/17 00:36 143/61 03/21/17 00:36 38.6 115 34 143/61 96 Nasal Cannula 2.0 The patient is alert and oriented. Mood and affect appeared normal. He answered all questions appropriately. HEENT: Pupils are equal and reactive to light and accommodation. Extraocular movements are intact. The sclerae are anicteric. Neuro: Cranial nerves intact Neck: Patient's neck is supple. He has palpable carotid pulses bilaterally without bruits on auscultation. There is no evidence of jugular venous distention. The thyroid is not enlarged. Lungs: Clear to auscultation bilaterally. He has good air movement without use of accessory muscles. No rales wheezes or rhonchi. Cardiac: Heart demonstrates a regular rate and rhythm. Normal S1 and S2. No murmurs on examination. Pulses: The patient has palpable radial pulses bilaterally that are equal in intensity Extremities: There was no evidence of hypoperfusion. There is no cyanosis or clubbing. There is no edema. Skin: I did not appreciate any rashes on examination today. Data Laboratory Results: Last 24 Hours Test 03/21/17 00:00 03/21/17 00:18 03/21/17 01:20 03/21/17 01:43 Influenza Type A Antigen POS for Influ A Influenza Type B Antigen Neg for Influ B Activated Partial Thromboplast Time 29.2 SECONDS Partial Thromboplastin Ratio 1.1 Sodium Level 135 mmol/L Potassium Level 3.1 mmol/L Chloride Level 98 mmol/L Carbon Dioxide Level 28 mmol/L Anion Gap 9.0 mmol/L Blood Urea Nitrogen 19 mg/dl Creatinine 1.93 mg/dl Est Creatinine Clear Calc Drug Dose 39.4 ml/min Estimated GFR () 37.6 Estimated GFR (Non- 32.4 BUN/Creatinine Ratio 10.1 Random Glucose 130 mg/dl Calcium Level 9.3 mg/dl Magnesium Level 1.9 mg/dl Total Bilirubin 1.2 mg/dl Direct Bilirubin 0.3 mg/dl Aspartate Amino Transf (AST/SGOT) 21 U/L Alanine Aminotransferase (ALT/SGPT) 26 U/L Alkaline Phosphatase 49 U/L Troponin I 0.310 ng/ml Pro-B-Type Natriuretic Peptide 4028 pg/ml Total Protein 7.7 gm/dl Albumin 3.3 gm/dl Lipase 73 U/L Lactic Acid Level 1.8 mmol/L White Blood Count 10.84 K/uL Red Blood Count 4.70 M/uL Hemoglobin 13.6 g/dL Hematocrit 41.9 % Mean Corpuscular Volume 89.1 fL Mean Corpuscular Hemoglobin 28.9 pg Mean Corpuscular Hemoglobin Concent 32.5 g/dl Platelet Count K/uL Mean Platelet Volume fL Neutrophils (%) (Auto) 82.3 % Lymphocytes (%) (Auto) 8.5 % Monocytes (%) (Auto) 6.9 % Eosinophils (%) (Auto) 0.4 % Basophils (%) (Auto) 0.2 % Neutrophils # (Auto) 8.93 K/uL Lymphocytes # (Auto) 0.92 K/uL Monocytes # (Auto) 0.75 K/uL Eosinophils # (Auto) 0.04 K/uL Basophils # (Auto) 0.02 K/uL RDW Standard Deviation 56.5 fL RDW Coefficient of Variation 17.1 % Immature Granulocyte % (Auto) 1.7 % Immature Granulocyte # (Auto) 0.18 K/uL Nucleated RBC Absolute Count (auto) 0.03 K/uL Nucleated Red Blood Cells % 0.3 % Estimated Average Glucose 186 mg/dl Hemoglobin A1c 8.1 % Test 03/21/17 02:16 03/21/17 03:08 03/21/17 06:03 03/21/17 08:50 Venous Blood pH 7.38 Venous Blood Partial Pressure CO2 44 mmHg Venous Blood Partial Pressure O2 35 mmHg Venous Blood HCO3 26 mmol/L Venous Blood Oxygen Saturation 63.7 % Venous Blood Base Excess 0.4 mEq/L Troponin I 0.422 ng/ml Triglycerides Level 164 mg/dl Cholesterol Level 143 mg/dl HDL Cholesterol 25 mg/dl LDL Cholesterol, Calculated 85 mg/dl VLDL Cholesterol, Calculated 33 mg/dl Cholesterol/HDL Ratio 5.7 Bedside Glucose 307 mg/dl Urine Color DK YELLOW Urine Appearance CLOUDY Urine pH 5.0 Urine Specific [place] 1.031 Urine Protein NEG Urine Glucose (UA) 2+ Urine Ketones TRACE Urine Occult Blood TRACE Urine Nitrite NEG Urine Bilirubin NEG Urine Urobilinogen NEG Urine Leukocyte Esterase NEG Urine WBC (Auto) 1-5 /hpf Urine RBC (Auto) 0-4 /hpf Urine Hyaline Casts (Auto) 1-5 /lpf Urine Epithelial Cells (Auto) 20-30 /lpf Urine Bacteria (Auto) NEG Imaging: I reviewed the source image of his admission chest x-ray. Perhaps mild vascular congestion without infiltrate. No official report available. EKG: Atrial tachycardia versus atrial flutter. Right bundle branch block. Probable old inferior myocardial infarction. Unchanged from prior with the exception of the atrial arrhythmia Echocardiogram dated 10/2016: Mild LVH. Stage I diastolic dysfunction. Moderate left atrial enlargement I performed a complete device interrogation of his dual-chamber pacemaker. He does have occasional atrial arrhythmia is generally lasting a 2nd or 2. Occasionally they will last a few minutes. This appears to be more consistent with an atrial tachycardia than atrial fibrillation. No sustained episodes. Is normal thresholds on both leads. The RV sensing is slightly low, but adequate at this point with an adequate sensitivity threshold. Assessment & Plan 1. Dyspnea: This is likely multifactorial. The patient has longstanding history of mild dyspnea associated with his asthma. His symptoms do seem to have progressed over several weeks and become more acute in the past 2 days. With a notable weight gain and elevated BNP it would seem reasonable to affect and diuresis for pulmonary vascular congestion. However, I think his degree of congestion is fairly mild. He may also have some pulmonary condition related to his influenza diagnosis. 2. Congestive heart failure: Patient likely has an element of mild pulmonary vascular congestion which should respond easily to diuresis. He is known to have an ischemic cardiomyopathy. Echocardiogram could be obtained during this admission for both evaluation of his LV function as well as new wall motion abnormalities. He has been maintained primarily on beta-blockade. Other antihypertensives including Frankie inhibitor was stopped years ago due to his syncope and hypotension. 3. Atrial tachycardia: Patient does have evidence of occasional atrial tachycardia on his device interrogation. This is longstanding in nature and generally very brief. No sustained episodes. No atrial fibrillation or atrial flutter. No indication for anticoagulation. This is likely not played a role in his decompensation. 4. Coronary artery disease: Patient is known to have subtotal occlusion of the posterior descending artery. This appears to be collateralized from the left to the right. He likely has an element of ischemia in this territory which is chronic. This may explain the elevation in his biomarkers given his acute illness. He has been on beta-blockers. He has not been on aspirin due to a known allergy. In the past he was on Plavix and I cannot decipher why this was stopped. He does not recall the name of the medication but is clearly documented in his record. I think would be reasonable to reinitiate him on Plavix given his known coronary disease. 5. Elevated cardiac biomarkers: He does not give a good description of angina or coronary insufficiency. He has all over aches and pains but no specific chest pain. He has not noted chest pain with exertion, only dyspnea. His biomarkers so far have been flat. During his past admission they were normal. I suspect he did have an element of ischemia, but with his known coronary disease and an area of the myocardium which is known to be poorly supplied I would not be surprised if he has transient ischemia not related to a plaque rupture event. I think would be reasonable to stop the heparin and start him on Plavix. His markers can be trended. If they rise significantly could entertain the possibility of angiography. I think a more reasonable approach would be reassessment of his left ventricle to see if any new wall motion abnormalities have developed or if he has more severe LV dysfunction. In that setting repeat imaging or angiography could be considered.
[2017-03-21 12:28] LABS: PTT PATIENT 114.4 SECONDS (21.0-31.0)
[2017-03-21 12:35] LABS: CALCIUM 8.9 mg/dl (8.5-10.1); CREATININE 2.35 mg/dl (0.60-1.40); POTASSIUM 3.7 mmol/L (3.5-5.1)
[2017-03-21 12:45] LABS: CKMB 5.3 ng/ml (0.5-3.6)
[2017-03-21] MEDS ORDERED: CLOPIDOGREL BISULFATE 75 MG TAB PO ONE (13:30)
--- NOTE | 2017-03-21 13:49 | Progress Note ---
Subjective Date of Service: Mar 21, 2017. Subjective Pt evaluation today including: conversation w/ patient, physical exam, chart review, lab review, review of studies (cxr), conversation w/ consultant internship ( cardiology), review of inpatient medication list Pain: denies any current or recent chest pain; +myalgias PO Intake: poor x 48 hours Voiding: no voiding problems tele overnight - brief runs of a. tach or a. flutter otherwise NSR or sinus tach c/o cough with yellow sputum production has had at least 12 pounds of weight gain in the last 3-4 weeks +abdominal bloating +dyspnea all symptoms worse in the last 48 hours again NO CHEST PAIN reports that his PCP ordered O2 for him about 2 weeks ago Problem List Medical Problems: (1) Acute respiratory failure with hypoxia Status: Acute (2) COPD exacerbation Status: Acute (3) Hypoglycemia Status: Acute (4) Influenza A Status: Acute (5) Pneumonia Status: Acute (6) Prostatitis Status: Acute (7) Sepsis Status: Acute (8) Weakness Status: Acute Review of Systems Constitutional: + fever, + chills, + fatigue Respiratory: + cough, + sputum, + shortness of breath, + dyspnea on exertion Cardiac: + orthopnea, + PND, No chest pain, No edema Abdomen: No pain, No nausea, No vomiting Objective Vital Signs Date Time Temp Pulse Resp B/P (MAP) Pulse Ox O2 Delivery O2 Flow Rate FiO2 03/21/17 08:00 Nasal Cannula 4.0 03/21/17 07:15 76 97 Nasal Cannula 2.0 03/21/17 07:04 36.5 62 18 146/72 (96) 98 Nasal Cannula 2.0 03/21/17 05:29 36.5 92 24 123/88 96 Nasal Cannula 2.0 03/21/17 05:11 80 19 95 03/21/17 05:00 111/60 03/21/17 04:56 89 15 95 03/21/17 04:51 37.3 83 22 96 03/21/17 04:36 97 17 97 03/21/17 04:30 120/66 03/21/17 04:21 83 20 95 03/21/17 04:08 106/57 03/21/17 04:06 85 23 94 03/21/17 03:51 68 16 92 03/21/17 03:36 99 23 91 03/21/17 03:30 102/60 03/21/17 03:21 111 24 95 03/21/17 03:06 97 16 97 03/21/17 03:01 95/48 03/21/17 02:51 115 27 97 03/21/17 02:36 94 26 98 03/21/17 02:30 111/67 03/21/17 02:21 90 20 98 03/21/17 02:06 99 25 98 03/21/17 02:01 102/58 03/21/17 01:58 99 29 100 03/21/17 01:47 105 95 Nasal Cannula 2.0 03/21/17 01:43 108 34 95 03/21/17 01:31 136/93 03/21/17 01:28 101 34 95 03/21/17 01:13 145 39 95 03/21/17 01:00 150/72 03/21/17 00:58 150 28 03/21/17 00:51 79 03/21/17 00:43 115 24 93 Nasal Cannula 2.0 03/21/17 00:36 143/61 03/21/17 00:36 38.6 115 34 143/61 96 Nasal Cannula 2.0 Physical Exam General Appearance: no apparent distress ENT: pharynx normal Neck: no JVD Respiratory/Chest: no respiratory distress, no accessory muscle use, + decreased breath sounds (bases ) Cardiovascular: no gallop, no murmur, + tachycardia Abdomen: normal bowel sounds, non tender, soft, no organomegaly Extremities: no pedal edema Neurologic/Psychiatric: alert, oriented x 3 Laboratory Results Last 24 Hours Test 03/21/17 00:00 03/21/17 00:18 03/21/17 01:20 03/21/17 01:43 Influenza Type A Antigen POS for Influ A Influenza Type B Antigen Neg for Influ B Activated Partial Thromboplast Time 29.2 SECONDS Partial Thromboplastin Ratio 1.1 Sodium Level 135 mmol/L Potassium Level 3.1 mmol/L Chloride Level 98 mmol/L Carbon Dioxide Level 28 mmol/L Anion Gap 9.0 mmol/L Blood Urea Nitrogen 19 mg/dl Creatinine 1.93 mg/dl Est Creatinine Clear Calc Drug Dose 39.4 ml/min Estimated GFR () 37.6 Estimated GFR (Non- 32.4 BUN/Creatinine Ratio 10.1 Random Glucose 130 mg/dl Calcium Level 9.3 mg/dl Magnesium Level 1.9 mg/dl Total Bilirubin 1.2 mg/dl Direct Bilirubin 0.3 mg/dl Aspartate Amino Transf (AST/SGOT) 21 U/L Alanine Aminotransferase (ALT/SGPT) 26 U/L Alkaline Phosphatase 49 U/L Troponin I 0.310 ng/ml Pro-B-Type Natriuretic Peptide 4028 pg/ml Total Protein 7.7 gm/dl Albumin 3.3 gm/dl Lipase 73 U/L Lactic Acid Level 1.8 mmol/L White Blood Count 10.84 K/uL Red Blood Count 4.70 M/uL Hemoglobin 13.6 g/dL Hematocrit 41.9 % Mean Corpuscular Volume 89.1 fL Mean Corpuscular Hemoglobin 28.9 pg Mean Corpuscular Hemoglobin Concent 32.5 g/dl Platelet Count K/uL Mean Platelet Volume fL Neutrophils (%) (Auto) 82.3 % Lymphocytes (%) (Auto) 8.5 % Monocytes (%) (Auto) 6.9 % Eosinophils (%) (Auto) 0.4 % Basophils (%) (Auto) 0.2 % Neutrophils # (Auto) 8.93 K/uL Lymphocytes # (Auto) 0.92 K/uL Monocytes # (Auto) 0.75 K/uL Eosinophils # (Auto) 0.04 K/uL Basophils # (Auto) 0.02 K/uL RDW Standard Deviation 56.5 fL RDW Coefficient of Variation 17.1 % Immature Granulocyte % (Auto) 1.7 % Immature Granulocyte # (Auto) 0.18 K/uL Nucleated RBC Absolute Count (auto) 0.03 K/uL Nucleated Red Blood Cells % 0.3 % Estimated Average Glucose 186 mg/dl Hemoglobin A1c 8.1 % Test 03/21/17 02:16 03/21/17 03:08 03/21/17 06:03 03/21/17 08:50 Venous Blood pH 7.38 Venous Blood Partial Pressure CO2 44 mmHg Venous Blood Partial Pressure O2 35 mmHg Venous Blood HCO3 26 mmol/L Venous Blood Oxygen Saturation 63.7 % Venous Blood Base Excess 0.4 mEq/L Troponin I 0.422 ng/ml Triglycerides Level 164 mg/dl Cholesterol Level 143 mg/dl HDL Cholesterol 25 mg/dl LDL Cholesterol, Calculated 85 mg/dl VLDL Cholesterol, Calculated 33 mg/dl Cholesterol/HDL Ratio 5.7 Bedside Glucose 307 mg/dl Urine Color DK YELLOW Urine Appearance CLOUDY Urine pH 5.0 Urine Specific [place] 1.031 Urine Protein NEG Urine Glucose (UA) 2+ Urine Ketones TRACE Urine Occult Blood TRACE Urine Nitrite NEG Urine Bilirubin NEG Urine Urobilinogen NEG Urine Leukocyte Esterase NEG Urine WBC (Auto) 1-5 /hpf Urine RBC (Auto) 0-4 /hpf Urine Hyaline Casts (Auto) 1-5 /lpf Urine Epithelial Cells (Auto) 20-30 /lpf Urine Bacteria (Auto) NEG Assessment and Plan 76yo male with: 1. influenza A infection - tamiflu x 5 days. Supportive care. Droplet precautions. 2. suspected acute/chronic systolic/diastolic CHF - lasix 40mg IV x 1 and follow response. Echo pending. 3. atrial tach vs atrial flutter - cardiology consult by Dr. Gonzalez appreciated. Pacer interrogation was performed by Dr. Gonzalez. No a. fib over the last few weeks during time period when he has been dyspneic. Continue to monitor on telemetry. 4. T2DM, uncontrolled - received IV steroids in the ER last pm exacerbating this issue. Continue lantus but increase correction factor & carb ratio for novolog meal- time coverage. 5. acute kidney injury - this may be 2nd to acute/chronic CHF. Hopefully creatinine will improve with diuresis. Repeat BMP today and in AM. 6. positive troponin - he has had no ischemic symptoms making it more likely this is myocardial demand ischemia rather than true ACS. Dr. Gonzalez feels that it is likely demand ischemia. Due to aspirin allergy plavix has been recommended because of known CAD, however. 7. hypokalemia - replace, repeat BMP today. 8. acute hypoxic respiratory failure - likely due to CHF, influenza, +/- asthma. Treat all issues and wean O2 as tolerated. Await repeat echo. 9. DVT proph - currently on systemic heparin for possible ACS. Will d/w cardiology whether to remove the systemic heparin. 10. ?LLL pneumonia - remains on rocephin. Continue for now. Consider repeat cxr tomorrow to confirm radiographic evidence of such. 11. adrenal insufficiency - will give small dose of stress dose steroids in light of the flu and other physical stressors. 12. hypothyroidism - continue synthroid; most recent TSH was nearly 1 year ago ; repeat in AM for stability. PT, OT consults Continued [facility] stay due to: multiple IV medications needed Discharge planning: uncertain
[2017-03-21] MEDS ORDERED: INSULIN IV INFUSION PROTOCOL STA (14:14)
[2017-03-21] MEDS ORDERED: MODERATE STRESS LEVEL ONE (14:15)
[2017-03-21] MEDS ORDERED: INSULIN PROTOCOL GOAL RANGE ONE (14:15)
[2017-03-21] MEDS ORDERED: DC ALL PREVIOUSLY ORDERED DIABETES MEDS ONE (14:30)
[2017-03-21] MEDS ORDERED: INSULIN HUMAN REGULAR IV BOLUS 2.5 UNIT in SYRINGE 0 ML IV SCH (14:45)
[2017-03-21] MEDS ORDERED: PERFLUTREN LIPID MICROSPHERE (DEFINITY) IV ONE (14:46)
[2017-03-21] MEDS: INSULIN REGULAR 250 UNITS in SODIUM CHLORIDE 0.9% 250ML 250 ML IV SCH (14:48)
--- NOTE | 2017-03-21 18:32 | ECHOCARDIOGRAM REPORT ---
*NOTICE TO RECEIVING [employer] [employer] [facility] This information is strictly Confidential and protected under [place] law. [place] law prohibits you from making any further disclosure of this information unless further disclosure is expressly permitted by the written consent of the person to whom it pertains or is authorized by law. A general authorization for the release of medical or other information is not sufficient for this purpose. Hospital accepts no responsibility if the information is made available to any other person, INCLUDING THE PATIENT. Interpretation Summary * Name: BARBARA NAVARRO Study Date: 03/21/2017 02:23 PM BP: 145/73 mmHg * Patient Location: C.2T\S\E222\S\1 HR: 86 * : 1940 (M/d/yyy) Gender: Male Height: 70 in * Age: 76 yrs Ethnicity: [place] Weight: 222 lb * Ordering Physician: Trevor Gonzalez * Referring Physician: Self, Referred * Performed By: Kimberly Davis RDCS * * Reason For Study: CHF * BSA: 2.2 m2 * -- Conclusions -- * The study was technically limited. * There is moderate concentric left ventricular hypertrophy. * There are regional wall motion abnormalities as specified. * Right ventricular systolic pressure is normal. * Left ventricular systolic function is borderline reduced. * The left atrium is moderately dilated. * Compared to an echocardiogram performed on 10/27/2016 in taking into account the difference in technique, no appreciable change. Procedure Details * A contrast injection of Definity was performed to improve assessment of LV function. * Contrast was injected into an intravenous site in the left arm. * One vial of Definity ultrasound contrast was diluted in normal saline to a total volume of 10 ml. A total of '1' ml of solution was administered during imaging. * Lot # [id number] of Definity utilized for procedure. * Expiration date 1 MAY 09. * The attending nurse who injected the contrast agent was COLTON CHONG. * The study was technically limited. Left Ventricle * The left ventricle is grossly normal size. * There is moderate concentric left ventricular hypertrophy. * Left ventricular systolic function is borderline reduced. * Ejection Fraction = 45-50%. * There are regional wall motion abnormalities as specified. * Posterior wall appears to be moderately hypokinetic Right Ventricle * The right ventricle is grossly normal size. * The right ventricular systolic function is normal as assessed by tricuspid annular plane systolic excursion (TAPSE) (normal >1.5 cm). Atria * The left atrium is moderately dilated. * Right atrial size is normal. Mitral Valve * The mitral valve is grossly normal. * There is trace mitral regurgitation. Tricuspid Valve * The tricuspid valve is not well visualized. * There is trace tricuspid regurgitation. * Right ventricular systolic pressure is normal. Aortic Valve * The aortic valve is normal in structure and function. * The aortic valve is trileaflet. * No hemodynamically significant valvular aortic stenosis. * There is no significant aortic regurgitation. Great Vessels * The aortic root is normal size. Pericardium/Pleural * There is no pericardial effusion. MMode 2D Measurements and Calculations IVSd 1.8 cm IVSs 2.2 cm LVIDd 5.3 cm LVIDs 4.0 cm LVPWd 1.8 cm LVPWs 2.3 cm IVS/LVPW 1.0 FS 23.7 % EDV(Teich) 133.6 ml ESV(Teich) 70.9 ml EF(Teich) 47.0 % EDV(cubed) 146.4 ml ESV(cubed) 65.0 ml EF(cubed) 55.6 % % IVS thick 21.9 % % LVPW thick 27.8 % LV mass(C)d 471.1 grams LV mass(C)dI 215.9 grams/m\S\2 LV mass(C)s 473.6 grams LV mass(C)sI 217.0 grams/m\S\2 SV(Teich) 62.7 ml SI(Teich) 28.8 ml/m\S\2 SV(cubed) 81.4 ml SI(cubed) 37.3 ml/m\S\2 Ao root diam 3.5 cm Ao root area 9.5 cm\S\2 LA dimension 2.3 cm LA/Ao 0.67 LVAd ap4 30.3 cm\S\2 LVLd ap4 7.8 cm EDV(MOD-sp4) 95.9 ml EDV(sp4-el) 100.2 ml LVAs ap4 22.3 cm\S\2 LVLs ap4 7.8 cm ESV(MOD-sp4) 52.3 ml ESV(sp4-el) 54.2 ml EF(MOD-sp4) 45.4 % EF(sp4-el) 45.9 % SV(MOD-sp4) 43.5 ml SI(MOD-sp4) 20.0 ml/m\S\2 SV(sp4-el) 46.0 ml SI(sp4-el) 21.1 ml/m\S\2 Doppler Measurements and Calculations Ao V2 max 118.2 cm/sec Ao max PG 5.6 mmHg Ao max PG (full) 3.3 mmHg LV V1 max PG 2.2 mmHg LV V1 max 74.9 cm/sec TR max nyla 168.2 cm/sec
[2017-03-21 20:51] LABS: CREATININE 2.37 mg/dl (0.60-1.40); POTASSIUM 3.9 mmol/L (3.5-5.1)
[2017-03-21 21:10] LABS: CKMB 6.1 ng/ml (0.5-3.6)
[2017-03-21] MEDS: FENOFIBRATE 145 MG TAB PO SCH (21:10)
[2017-03-21] MEDS: PRAVASTATIN SOD 40 MG TAB PO SCH (21:10)
[2017-03-21] MEDS: HYDROCORTISONE 10 MG TAB PO SCH (21:10)
[2017-03-22] VITALS (11 sets, daily range): BP systolic 125–175; BP diastolic 64–90; PULSE 54–110; TEMP 36.2–36.8; O2SAT 90–100; BMI 31.9
[2017-03-22] MEDS: IPRATROPIUM BROMIDE NEB SOLN 0.02% 2.5 ML VIAL INH SCH ×4 (02:04→20:10)
[2017-03-22] MEDS: LEVALBUTEROL 1.25MG/0.5ML NEB INH SCH ×4 (02:04→20:10)
[2017-03-22] MEDS: CEFTRIAXONE SOD INJ 1 GM in DEXTROSE 5% ADD-VANTAGE 50ML 50 ML IV SCH (05:43)
[2017-03-22] MEDS: LEVOTHYROXINE 75 MCG TAB PO SCH (05:43)
[2017-03-22] MEDS: BUDESONIDE 0.5 MG/2 ML VIAL (PULMICORT) INH SCH ×2 (07:07→20:09)
[2017-03-22] MEDS: METOPROLOL SUCC 25MG EXT REL TAB PO SCH (07:13)
[2017-03-22] MEDS: FINASTERIDE 5 MG TAB PO SCH (07:15)
[2017-03-22] MEDS: POTASSIUM CHLORIDE 20 MEQ TABCR PO SCH (07:15)
[2017-03-22] MEDS: OSELTAMIVIR PHOSPHATE 75 MG CAP PO SCH ×2 (07:15→21:56)
[2017-03-22] MEDS: HYDROCORTISONE 10 MG TAB PO SCH ×2 (07:15→21:55)
[2017-03-22] MEDS: BuPROPion XL 150 MG TABCR PO SCH (07:16)
[2017-03-22] MEDS: CLOPIDOGREL BISULFATE 75 MG TAB PO SCH (07:16)
[2017-03-22 07:18] LABS: HEMATOCRIT 37.6 % (42-52); HEMOGLOBIN 12.4 g/dL (14.0-18.0); MEAN CELL VOLUME 87.4 fL (80-100); MEAN CORPUSCULAR HEMOGLOBIN 28.8 pg (25-34); RED CELL DISTRIBUTION WIDTH SD 54.7 fL (36.4-46.3); WHITE BLOOD COUNT 9.83 K/uL (4.8-10.8)
[2017-03-22 07:28] LABS: INR 1.1 (0.9-1.1); PTT PATIENT 31.6 SECONDS (21.0-31.0)
[2017-03-22 07:57] LABS: CREATININE 1.72 mg/dl (0.60-1.40); POTASSIUM 3.8 mmol/L (3.5-5.1)
[2017-03-22] MEDS: INSULIN ASPART 100 UNITS/ML 3 ML PEN SC SCH ×4 (08:05→22:00)
[2017-03-22 08:28] LABS: IG# 0.05 K/uL (0.00-0.02); LYMPH % 2.5 %; LYMPH ABS # 0.24 K/uL (1.2-3.4); MONO % 10.3 %; NEUT % 86.7 %
[2017-03-22] MEDS ORDERED: FUROSEMIDE 40 MG/4 ML VIAL IV STA (09:56)
--- NOTE | 2017-03-22 09:56 | Cardiology Follow-Up ---
Subjective Date of Service: Mar 22, 2017. Pt evaluation today including: conversation w/ patient, physical exam, lab review, review of studies, review of inpatient medication list History of Present Illness He is feeling much better than before admission, shortness of breath is improved however he is so short of breath walking around his room. No chest discomfort, no palpitations. Social History Smoking Status: Never Smoker History of Alcohol Use: No Review of Systems Respiratory: + cough, + sputum, + dyspnea on exertion, No wheezing, No shortness of breath Cardiac: + orthopnea, + PND, No chest pain, No edema Medications Cardiovascular: Item Value Date Time Clopidogrel 75 mg 03/22/17 0900 Bisulfate QAM/PO 03/22/17 0716 (plAVix TAB) Pravastatin Sodium 40 mg 03/21/17 2100 (Pravachol Tab) QPM/PO 03/21/172109 Fenofibrate 145 mg 03/21/17 2100 (Tricor Tab) HS/PO 03/21/172109 Metoprolol 25 mg 03/21/17 0900 Succinate DAILY/PO 03/22/17 0713 (Toprol Xl Tab) Potassium Chloride 20 meq 03/21/17 0900 (Klor-Con Tab) DAILY/PO 03/22/17 0715 Objective Vital Signs Past 12 Hours Date Time Temp Pulse Resp B/P (MAP) Pulse Ox O2 Delivery O2 Flow Rate FiO2 03/22/17 09:04 87 98 03/22/17 07:57 36.5 92 20 149/64 (92) 96 Nasal Cannula 2.0 03/22/17 07:08 84 18 98 Nasal Cannula 2.0 03/22/17 04:00 Nasal Cannula 2.0 03/22/17 03:35 36.6 90 21 149/77 (101) 98 Nasal Cannula 2.0 03/22/17 02:04 54 18 90 Nasal Cannula 2.0 03/21/17 23:59 Nasal Cannula 2.0 03/21/17 23:30 36.4 85 20 124/75 (91) 91 Nasal Cannula 2.0 Last Recorded Weight-Kilograms: 100.800 Physical Exam Constitutional: Level of Distress: NAD Lungs: Auscultation: breath sounds normal, no wheezing, no rales/crackles Extremities: no edema Data Laboratory Results: Last 24 Hours Test 03/21/17 11:08 03/21/17 11:11 1/1/18 11:45 03/21/17 14:06 Bedside Glucose 431 mg/dl 399 mg/dl 383 mg/dl Activated Partial Thromboplast Time 114.4 SECONDS Partial Thromboplastin Ratio 4.4 Sodium Level 132 mmol/L Potassium Level 3.7 mmol/L Chloride Level 96 mmol/L Carbon Dioxide Level 23 mmol/L Anion Gap 12.0 mmol/L Blood Urea Nitrogen 30 mg/dl Creatinine 2.35 mg/dl Est Creatinine Clear Calc Drug Dose 30.9 ml/min Estimated GFR () 29.6 Estimated GFR (Non- 25.5 BUN/Creatinine Ratio 12.7 Random Glucose 414 mg/dl Calcium Level 8.9 mg/dl Total Creatine Kinase 1165 U/L Creatine Kinase MB 5.3 ng/ml Creatine Kinase MB Ratio 0.5 Troponin I 0.261 ng/ml Beta-Hydroxybutyric Acid 6.05 mg/dL Test 03/21/17 15:56 03/21/17 16:56 03/21/17 18:03 03/21/17 18:57 Bedside Glucose 273 mg/dl 211 mg/dl 337 mg/dl 219 mg/dl Test 03/21/17 19:40 03/21/17 20:24 03/21/17 21:00 03/21/17 21:58 Bedside Glucose 177 mg/dl 204 mg/dl 213 mg/dl Sodium Level 136 mmol/L Potassium Level 3.9 mmol/L Chloride Level 101 mmol/L Carbon Dioxide Level 26 mmol/L Anion Gap 9.0 mmol/L Blood Urea Nitrogen 35 mg/dl Creatinine 2.37 mg/dl Est Creatinine Clear Calc Drug Dose 30.6 ml/min Estimated GFR () 29.3 Estimated GFR (Non- 25.3 BUN/Creatinine Ratio 14.7 Random Glucose 204 mg/dl Calcium Level 9.0 mg/dl Total Creatine Kinase 1473 U/L Creatine Kinase MB 6.1 ng/ml Creatine Kinase MB Ratio 0.4 Troponin I 0.259 ng/ml Thyroid Stimulating Hormone (TSH) 0.247 uIu/ml Test 03/21/17 22:58 03/22/17 00:07 03/22/17 01:07 03/22/17 02:00 Bedside Glucose 169 mg/dl 165 mg/dl 142 mg/dl 154 mg/dl Test 03/22/17 04:09 03/22/17 06:07 03/22/17 06:46 03/22/17 08:02 Bedside Glucose 151 mg/dl 155 mg/dl 196 mg/dl White Blood Count 9.83 K/uL Red Blood Count 4.30 M/uL Hemoglobin 12.4 g/dL Hematocrit 37.6 % Mean Corpuscular Volume 87.4 fL Mean Corpuscular Hemoglobin 28.8 pg Mean Corpuscular Hemoglobin Concent 33.0 g/dl Platelet Count K/uL Mean Platelet Volume fL Neutrophils (%) (Auto) 86.7 % Lymphocytes (%) (Auto) 2.5 % Monocytes (%) (Auto) 10.3 % Eosinophils (%) (Auto) 0.0 % Basophils (%) (Auto) 0.0 % Neutrophils # (Auto) 8.40 K/uL Lymphocytes # (Auto) 0.24 K/uL Monocytes # (Auto) 1.00 K/uL Eosinophils # (Auto) 0.00 K/uL Basophils # (Auto) 0.00 K/uL RDW Standard Deviation 54.7 fL RDW Coefficient of Variation 17.0 % Immature Granulocyte % (Auto) 0.5 % Immature Granulocyte # (Auto) 0.05 K/uL Toxic Vacuolation 1+ Prothrombin Time 11.3 SECONDS Prothromb Time International Ratio 1.1 Activated Partial Thromboplast Time 31.6 SECONDS Partial Thromboplastin Ratio 1.2 Sodium Level 140 mmol/L Potassium Level 3.8 mmol/L Chloride Level 103 mmol/L Carbon Dioxide Level 30 mmol/L Anion Gap 6.0 mmol/L Blood Urea Nitrogen 33 mg/dl Creatinine 1.72 mg/dl Est Creatinine Clear Calc Drug Dose 42.1 ml/min Estimated GFR () 43.2 Estimated GFR (Non- 37.3 BUN/Creatinine Ratio 19.1 Random Glucose 175 mg/dl Calcium Level 9.0 mg/dl Magnesium Level 2.8 mg/dl Test 03/22/17 09:00 Bedside Glucose 328 mg/dl EKG: Today sinus rhythm with some atrial pacing and PACs. Telemetry reviewed: 1 sinus rhythm with atrial pacing and brief episodes of a probable PAT. Assessment and Plan #1. Shortness of breath: His shortness of breath is improved but remains. I believe this is multifactorial, due to the flu and I believe fluid overload. #2. Flu: That may be improved slightly, although with diuresis it is hard to tell. #3. Congestive heart failure: He seems to have some element of congestive heart failure, he thinks his weight is up 6-8 pounds but he has not had edema. He has lost a little bit of weight in here and he feels better. I would continue diuresis as long as his renal function does not deteriorate. #4. Elevated troponin: This is most consistent with demand ischemia, the troponins are quite low and in a decreasing pattern. Thank you for allowing me to participate in his care.
[2017-03-22] MEDS ORDERED: FUROSEMIDE INJ 40 MG in SYRINGE 0 ML IV SCH (10:30)
[2017-03-22] MEDS ORDERED: INSULIN GLARGINE SOLOSTAR 100 UNITS/ML 3 ML PEN SC SCH (11:15)
--- NOTE | 2017-03-22 12:05 | DIAGNOSTIC IMAGING REPORT ---
CHEST 2 VIEWS ROUTINE CLINICAL HISTORY: influenza, question of pneumonia on prior cxr COMPARISON STUDY: 03/21/2017 FINDINGS: The heart is mildly enlarged. As a left subclavian dual-chamber central venous pacemaker present. Trace pleural effusions are suspected. There is minor basilar interstitial thickening. There is no lobar consolidation.[ There are old right-sided rib deformities. IMPRESSION: Minor basilar interstitial thickening/atelectasis. Trace pleural effusions. No conventional radiographic evidence of pneumonia. Electronically signed by: Star Pro M.D. 03/22/2017 12:04 PM Dictated Date/Time: 03/22/2017 12:02 PM
[2017-03-22] MEDS: INSULIN REGULAR 250 UNITS in SODIUM CHLORIDE 0.9% 250ML 250 ML IV SCH (14:18)
--- NOTE | 2017-03-22 18:42 | Progress Note ---
Subjective Date of Service: Mar 22, 2017. Subjective Pt evaluation today including: conversation w/ patient, conversation w/ family (son at bedside), physical exam, chart review, lab review, conversation w/ pmo consultant (cardiology), review of inpatient medication list Pain: denies PO Intake: improving Voiding: no voiding problems copious diuresis overnight tele - possible a. flutter runs with pacing patient feels much better today less dyspneic more energy no chest pain Problem List Medical Problems: (1) Acute respiratory failure with hypoxia Status: Acute (2) COPD exacerbation Status: Acute (3) Hypoglycemia Status: Acute (4) Influenza A Status: Acute (5) Pneumonia Status: Acute (6) Prostatitis Status: Acute (7) Sepsis Status: Acute (8) Weakness Status: Acute Review of Systems Constitutional: No fever, No chills Respiratory: + cough, + dyspnea on exertion, No sputum, No wheezing, No dyspnea at rest Cardiac: No chest pain, No orthopnea Abdomen: No pain Objective Vital Signs Date Time Temp Pulse Resp B/P (MAP) Pulse Ox O2 Delivery O2 Flow Rate FiO2 03/22/17 15:00 36.3 92 18 145/71 (95) 97 Nasal Cannula 2.0 03/22/17 14:03 79 18 99 Room Air 03/22/17 12:00 Nasal Cannula 2.0 03/22/17 11:01 36.5 80 20 153/70 (97) 98 Nasal Cannula 2.0 03/22/17 09:04 87 98 03/22/17 08:00 Nasal Cannula 2.0 03/22/17 07:57 36.5 92 20 149/64 (92) 96 Nasal Cannula 2.0 03/22/17 07:08 84 18 98 Nasal Cannula 2.0 03/22/17 04:00 Nasal Cannula 2.0 03/22/17 03:35 36.6 90 21 149/77 (101) 98 Nasal Cannula 2.0 03/22/17 02:04 54 18 90 Nasal Cannula 2.0 03/21/17 23:59 Nasal Cannula 2.0 03/21/17 23:30 36.4 85 20 124/75 (91) 91 Nasal Cannula 2.0 03/21/17 20:24 60 18 98 Nasal Cannula 2.0 03/21/17 20:00 96 Nasal Cannula 2.0 03/21/17 18:54 36.7 113 20 164/77 (106) 96 Nasal Cannula 2.0 Physical Exam General Appearance: no apparent distress, + pertinent finding (looks better) ENT: pharynx normal Neck: no JVD Respiratory/Chest: no respiratory distress, no accessory muscle use, + decreased breath sounds (bases), + rales (minimal, bases) Cardiovascular: regular rate, rhythm, no gallop Abdomen: normal bowel sounds, non tender, soft, no organomegaly Extremities: no pedal edema Neurologic/Psychiatric: alert, oriented x 3 Laboratory Results Last 24 Hours Test 03/21/17 18:57 03/21/17 19:40 03/21/17 20:24 03/21/17 21:00 Bedside Glucose 219 mg/dl 177 mg/dl 204 mg/dl Sodium Level 136 mmol/L Potassium Level 3.9 mmol/L Chloride Level 101 mmol/L Carbon Dioxide Level 26 mmol/L Anion Gap 9.0 mmol/L Blood Urea Nitrogen 35 mg/dl Creatinine 2.37 mg/dl Est Creatinine Clear Calc Drug Dose 30.6 ml/min Estimated GFR () 29.3 Estimated GFR (Non- 25.3 BUN/Creatinine Ratio 14.7 Random Glucose 204 mg/dl Calcium Level 9.0 mg/dl Total Creatine Kinase 1473 U/L Creatine Kinase MB 6.1 ng/ml Creatine Kinase MB Ratio 0.4 Troponin I 0.259 ng/ml Thyroid Stimulating Hormone (TSH) 0.247 uIu/ml Test 03/21/17 21:58 03/21/17 22:58 03/22/17 00:07 03/22/17 01:07 Bedside Glucose 213 mg/dl 169 mg/dl 165 mg/dl 142 mg/dl Test 03/22/17 02:00 03/22/17 04:09 03/22/17 06:07 03/22/17 06:46 Bedside Glucose 154 mg/dl 151 mg/dl 155 mg/dl White Blood Count 9.83 K/uL Red Blood Count 4.30 M/uL Hemoglobin 12.4 g/dL Hematocrit 37.6 % Mean Corpuscular Volume 87.4 fL Mean Corpuscular Hemoglobin 28.8 pg Mean Corpuscular Hemoglobin Concent 33.0 g/dl Platelet Count K/uL Mean Platelet Volume fL Neutrophils (%) (Auto) 86.7 % Lymphocytes (%) (Auto) 2.5 % Monocytes (%) (Auto) 10.3 % Eosinophils (%) (Auto) 0.0 % Basophils (%) (Auto) 0.0 % Neutrophils # (Auto) 8.40 K/uL Lymphocytes # (Auto) 0.24 K/uL Monocytes # (Auto) 1.00 K/uL Eosinophils # (Auto) 0.00 K/uL Basophils # (Auto) 0.00 K/uL RDW Standard Deviation 54.7 fL RDW Coefficient of Variation 17.0 % Immature Granulocyte % (Auto) 0.5 % Immature Granulocyte # (Auto) 0.05 K/uL Toxic Vacuolation 1+ Prothrombin Time 11.3 SECONDS Prothromb Time International Ratio 1.1 Activated Partial Thromboplast Time 31.6 SECONDS Partial Thromboplastin Ratio 1.2 Sodium Level 140 mmol/L Potassium Level 3.8 mmol/L Chloride Level 103 mmol/L Carbon Dioxide Level 30 mmol/L Anion Gap 6.0 mmol/L Blood Urea Nitrogen 33 mg/dl Creatinine 1.72 mg/dl Est Creatinine Clear Calc Drug Dose 42.1 ml/min Estimated GFR () 43.2 Estimated GFR (Non- 37.3 BUN/Creatinine Ratio 19.1 Random Glucose 175 mg/dl Calcium Level 9.0 mg/dl Magnesium Level 2.8 mg/dl Test 03/22/17 08:02 03/22/17 09:00 03/22/17 10:00 03/22/17 11:01 Bedside Glucose 196 mg/dl 328 mg/dl 231 mg/dl 206 mg/dl Test 03/22/17 11:54 03/22/17 13:00 03/22/17 14:01 03/22/17 15:00 Bedside Glucose 202 mg/dl 220 mg/dl 182 mg/dl 215 mg/dl Test 03/22/17 16:03 03/22/17 16:58 03/22/17 17:53 Bedside Glucose 189 mg/dl 167 mg/dl 229 mg/dl Assessment and Plan 76yo male with: 1. influenza A infection - tamiflu x 5 days. Supportive care. Droplet precautions. Improving. 2. acute/chronic systolic/diastolic CHF - lasix again today. Copious diuresis overnight with improved symptoms. ECHO w/o change in EF. 3. atrial tach vs atrial flutter - cardiology consult appreciated. Defer management to them. If having a. flutter will need to discuss anticoagulation. 4. T2DM, uncontrolled - but improved nicely with insulin drip. FSBS's have improved and thus resume lantus. Wean drip off as night goes on. Then revert back to novolog with meals/HS. 5. acute kidney injury - this may be 2nd to acute/chronic CHF. Resolving. 6. positive troponin - he has had no ischemic symptoms making it more likely this is myocardial demand ischemia rather than true ACS. Dr. Gonzalez feels that it is likely demand ischemia. Due to aspirin allergy plavix has been recommended because of known CAD, however. Has wall motion abnormalities on echo but no change from prior imaging. 7. hypokalemia - resolved. 8. acute hypoxic respiratory failure - likely due to CHF, influenza. Improved. Treat all issues and wean O2 as tolerated. 9. DVT proph - heparin TID. 10. ?LLL pneumonia - repeat cxr today w/o pneumonia. d/c rocephin. 11. adrenal insufficiency - wean hydrocortisone to 20mg BID. Then ultimately 20mg am, 10mg pm. 12. hypothyroidism - continue synthroid; TSH scantly suppressed but would not change dosing at this time. Repeat as outpatient in a few weeks. 13. elevated CPK - rhabdomyolysis from influenza? repeat CPK am. PT, OT consults family updated Continued [facility] stay due to: multiple IV medications needed Discharge planning: uncertain
[2017-03-22] MEDS ORDERED: INSULIN GLARGINE SOLOSTAR 100 UNITS/ML 3 ML PEN SC ONE (21:00)
[2017-03-22] MEDS: PRAVASTATIN SOD 40 MG TAB PO SCH (21:56)
[2017-03-22] MEDS: FENOFIBRATE 145 MG TAB PO SCH (21:57)
[2017-03-22] MEDS: HEPARIN SOD 5000 UNIT/0.5 ML CARP SQ SCH (22:02)
[2017-03-23] VITALS (11 sets, daily range): BP systolic 111–166; BP diastolic 53–80; PULSE 59–95; TEMP 36.3–36.7; O2SAT 94–98
[2017-03-23] MEDS: IPRATROPIUM BROMIDE NEB SOLN 0.02% 2.5 ML VIAL INH SCH ×4 (01:50→20:08)
[2017-03-23] MEDS: LEVALBUTEROL 1.25MG/0.5ML NEB INH SCH ×4 (01:50→20:08)
[2017-03-23] MEDS: LEVOTHYROXINE 75 MCG TAB PO SCH (05:58)
[2017-03-23] MEDS: HEPARIN SOD 5000 UNIT/0.5 ML CARP SQ SCH ×3 (06:00→20:36)
[2017-03-23] MEDS: BUDESONIDE 0.5 MG/2 ML VIAL (PULMICORT) INH SCH ×2 (07:07→20:08)
[2017-03-23 07:57] LABS: CALCIUM 9.4 mg/dl (8.5-10.1); CREATININE 1.46 mg/dl (0.60-1.40); POTASSIUM 3.9 mmol/L (3.5-5.1)
[2017-03-23] MEDS: FINASTERIDE 5 MG TAB PO SCH (08:28)
[2017-03-23] MEDS: HYDROCORTISONE 10 MG TAB PO SCH ×2 (08:28→20:32)
[2017-03-23] MEDS: BuPROPion XL 150 MG TABCR PO SCH (08:29)
[2017-03-23] MEDS: POTASSIUM CHLORIDE 20 MEQ TABCR PO SCH (08:29)
[2017-03-23] MEDS: OSELTAMIVIR PHOSPHATE 75 MG CAP PO SCH ×2 (08:29→20:33)
[2017-03-23] MEDS: CLOPIDOGREL BISULFATE 75 MG TAB PO SCH (08:29)
[2017-03-23] MEDS: METOPROLOL SUCC 25MG EXT REL TAB PO SCH (08:30)
[2017-03-23] MEDS: INSULIN ASPART 100 UNITS/ML 3 ML PEN SC SCH ×4 (08:35→20:31)
[2017-03-23] MEDS: INSULIN GLARGINE SOLOSTAR 100 UNITS/ML 3 ML PEN SC SCH (08:36)
[2017-03-23] MEDS ORDERED: FUROSEMIDE INJ 40 MG in SYRINGE 0 ML IV ONE (10:40)
--- NOTE | 2017-03-23 13:13 | CARDIOLOGY PROGRESS NOTE ---
DATE: 03/23/2017 HISTORY OF PRESENT ILLNESS: Mr. Greer is a 76-year-old white male with a history of CAD, Ischemic Cardiomyopathy, Chronic Systolic and Diastolic CHF, Dyslipidemia, Hypertension, CKD, Type 2 DM, Asthma, Depression, Sick Sinus Syndrome s/p dual chamber pacemaker, Paroxysmal Atrial Tachycardia, Paroxysmal Atrial Fibrillation, and chronic corticosteroid use who was admitted acutely to the [facility] on 03/21/2017 with acute influenza A and an element of Hypervolemia/CHF. The patient complained of dyspnea on exertion, productive cough and purulent sputum. Patient was admitted and was initially started on antibiotics. He was also given some IV Lasix with a negative fluid balance of close to 5 liters. He began to feel better yesterday, but throughout the night and so far today, he has felt more short of breath, and had a very persistent productive cough. He denies any chest pain, heaviness, tightness, pressure, or angina. He has noticed some PND. He denies any palpitations, syncope, or near syncope. PHYSICAL EXAMINATION: VITAL SIGNS: Temperature is 36.5 degrees Celsius, pulse is 90-95 and slightly irregular, respiratory rate is 20 respirations per minute and slightly labored. Blood pressure 111/79. SpO2 is 96% on room air. GENERAL: The patient is in no acute distress. HEENT: Head is atraumatic, normocephalic. EOMs intact. Sclerae are anicteric. Face is asymmetric. No perioral cyanosis. NECK: Without obvious JVD. Jugular venous pressure is approximately 9 cm sitting upright with positive hepatojugular reflux. Carotid upstrokes +2 bilaterally without bruits. CHEST AND LUNGS: With scattered crackles throughout, right base with increased rales compared to other lung barrios. No obvious wheezes. CARDIOVASCULAR: S1 and S2 are slightly irregular without obvious murmur, gallop, or rub. PMI is nondisplaced. No lifts, heaves, or thrills. No abdominal, aortic or renal bruits. ABDOMEN: Bowel sounds are present. No masses, organomegaly, or tenderness. EXTREMITIES: Without clubbing, cyanosis or edema. NEUROLOGIC: The patient is awake, alert and oriented. Pleasant and cooperative. Answers questions appropriately. Speech is clear. Normal movement in all 4 extremities. Gait pattern not assessed. Telemetry monitoring reveals predominantly normal sinus rhythm with frequent PVCs, frequent atrial ectopic beats, brief runs of atrial tachycardia, and very short runs of paroxysmal atrial fibrillation. Interrogation of his [employer] Diamond STRATTON MRI compatible dual-chamber pacemaker shows appropriate pacing and sensing characteristics to his device. Overall, he has episodic PAF less than 0.1% of the time. LABORATORY DATA: White blood cell count is 9.83, hemoglobin 12.4 g/dL, hematocrit 37.6%. Platelet count is pending. INR is 1.1. Sodium is 139 mmol/L, potassium 3.9 mmol/L, BUN 31 mg/dL, creatinine 1.46 mg/dL. Random glucose 105 mg/dL. Total CK is 595 units per liter with respective CK-MB of 6.1 ng/mL. Troponin I level is 0.259, 0.261, 0.422, and 0.310 ng/mL. ASSESSMENT: 1. Acute influenza A. 2. [id number] respiratory failure. 3. CAD with probable NSTEMI related to his current illness and physiologic stress. 4. Ischemic Cardiomyopathy with ongoing evidence of hypovolemia. 5. We will continue avoiding anticoagulation due to the brief nature of his episodic atrial fibrillation, and the fact that he is chronically on corticosteroids -- which increases the risk for GI bleeding. PLAN: 1. The patient is gradually improving, although he feels symptomatically worse today. 2. He has ongoing evidence of hypervolemia, recommend another dose of IV Lasix today with close monitoring of daily I&O's, body weights. 3. Maintain a low-sodium diet. 4. Continue Plavix 75 mg daily. 5. Continue Pravachol 40 mg daily. 6. Continue TriCor 145 mg at bedtime. 7. Continue Toprol-XL 25 mg daily. 8. Continue potassium chloride 20 mEq daily. 9. Continue nebulizers and corticosteroids. 10. At this point, there is no indication for anticoagulation due to his increased risk of GI bleeding and the fact that his episodic AFib is very brief in nature. He is in atrial fibrillation less than 0.1% of the time. 11. We will continue to monitor the frequency and duration of AFib with his pacemaker checks. 12. We will continue to follow along while hospitalized. EMPERATRIZ
--- NOTE | 2017-03-23 14:27 | Hospitalist Progress Note ---
Hospitalist Progress Note Date of Service Mar 23, 2017. (Catherine Rene ., PA-C) Subjective Pt evaluation today including: conversation w/ patient, physical exam, lab review, review of studies, conversation w/ application development consultant (Ammon Milligan), review of inpatient medication list Voiding: no voiding problems Patient sitting in bedside chair. Notes he feels worse than yesterday. On RA. +orthopnea, had trouble sleeping last night. +fatigue. Eating and drinking OK. +Cough- nonproductive. Feels very congested. Patient denies any fever, chills, sweats, lightheadedness, dizziness, vision changes, CP, palpitations, edema, wheezing, abdominal pain, nausea, vomiting, diarrhea, urinary symptoms, melena, numbness/tingling, weakness, muscle/joint pain, anxiety/depression, active bleeding, or new skin discoloration/changes. (Catherine Rene ., PA-C) Medications Current Inpatient Medications Medications (Trade) Dose Ordered Sig/Laila Route Start Time Stop Time Status Last Admin Dose Admin Acetaminophen (Tylenol Tab) 650 mg Q4H PRN PO 03/21/17 03:45 04/20/17 03:44 Nitroglycerin (Nitrostat Tab) 0.4 mg UD PRN SL 03/21/17 03:45 04/20/17 03:44 Bupropion HCl (Wellbutrin-Xl Tab) 150 mg DAILY PO 03/21/17 09:00 04/20/17 08:59 03/23/17 08:29 150 MG Fenofibrate (Tricor Tab) 145 mg HS PO 03/21/17 21:00 04/20/17 20:59 03/22/17 21:57 145 MG Finasteride (Proscar Tab) 5 mg QAM PO 03/21/17 09:00 04/20/17 08:59 03/23/17 08:28 5 MG Levothyroxine Sodium (Synthroid Tab) 75 mcg DAILYBB PO 03/21/17 06:00 04/20/17 05:59 03/23/17 05:58 75 MCG Metoprolol Succinate (Toprol Xl Tab) 25 mg DAILY PO 03/21/17 09:00 04/20/17 08:59 03/23/17 08:30 25 MG Potassium Chloride (Klor-Con Tab) 20 meq DAILY PO 03/21/17 09:00 04/20/17 08:59 03/23/17 08:29 20 MEQ Pravastatin Sodium (Pravachol Tab) 40 mg QPM PO 03/21/17 21:00 04/20/17 20:59 03/22/17 21:56 40 MG Ondansetron HCl (Zofran Odt) 8 mg Q6H PRN PO 03/21/17 03:45 04/20/17 03:44 Budesonide (Pulmicort Respules 0.5MG/ 2ML Neb Soln) 0.5 mg BIDR INH 03/21/17 08:00 04/20/17 07:59 03/23/17 07:07 0.5 MG Oseltamivir Phosphate (Tamiflu Cap) 75 mg BID PO 03/21/17 09:00 03/26/17 08:59 03/23/17 08:29 75 MG Ipratropium [place] (Atrovent 0.02% 0.5MG/2.5ML Neb) 0.5 mg Q6R INH 03/21/17 09:00 04/20/17 08:59 03/23/17 07:07 0.5 MG Levalbuterol (Xopenex 1.25MG/ 0.5ML Neb) 1.25 mg Q6R INH 03/21/17 09:00 04/20/17 08:59 03/23/17 07:07 1.25 MG Ipratropium [place] (Atrovent 0.02% 0.5MG/2.5ML Neb) 0.5 mg Q2H PRN INH 03/21/17 06:00 04/20/17 05:59 Levalbuterol (Xopenex 1.25MG/ 0.5ML Neb) 1.25 mg Q2H PRN INH 03/21/17 06:00 04/20/17 05:59 Glucose (Glucose 40% Gel) 15-30 GRAMS 15 GRAMS... UD PRN PO 03/21/17 06:00 04/20/17 05:59 Glucose (Glucose Chew Tab) 4-8 Tablets 4 Tabl... UD PRN PO 03/21/17 06:00 04/20/17 05:59 Dextrose (Dextrose 50% 50ML Syringe) 25-50ML OF 50% DW IV FOR... UD PRN IV 03/21/17 06:00 04/20/17 05:59 Glucagon (Glucagon Inj) 1 mg UD PRN SQ 03/21/17 06:00 04/20/17 05:59 Clopidogrel Bisulfate (plAVix TAB) 75 mg QAM PO 03/22/17 09:00 04/21/17 08:59 03/23/17 08:29 75 MG Hydrocortisone (Cortef Tab) 20 mg BID PO 03/22/17 21:00 03/23/17 23:59 03/23/17 08:28 20 MG Heparin Sodium (Porcine) (Heparin Sq 5000 Unit/0.5ml) 5,000 unit Q8 SQ 03/22/17 22:00 04/21/17 21:59 03/23/17 06:00 5,000 UNIT Insulin Aspart (novoLOG ASPART) SLIDING SCALE G... ACHS SC 03/22/17 21:00 04/21/17 20:59 03/23/17 12:31 5 UNITS Insulin Glargine (Lantus Solostar Pen) 55 units QAM SC 03/23/17 09:00 04/22/17 08:59 03/23/17 08:36 55 UNITS Guaifenesin (Mucinex Contr Rel Tab) 600 mg Q12 PO 03/23/17 21:00 04/22/17 20:59 Hydrocortisone (Cortef Tab) 20 mg QAM PO 03/24/17 09:00 04/23/17 08:59 Hydrocortisone (Cortef Tab) 10 mg QPM PO 03/24/17 21:00 04/23/17 20:59 (Catherine eRne, PANicaC) Objective Vital Signs Date Time Temp Pulse Resp B/P (MAP) Pulse Ox O2 Delivery O2 Flow Rate FiO2 03/23/17 10:56 36.3 83 20 154/72 (99) 97 Room Air 03/23/17 09:41 95 20 111/79 (90) 96 Room Air 03/23/17 07:22 36.5 95 20 166/72 (103) 96 Room Air 03/23/17 07:07 89 18 98 Room Air 03/23/17 04:33 36.6 89 19 158/53 (88) 94 Room Air 03/23/17 04:00 Nasal Cannula 2.0 03/23/17 01:50 59 18 96 Room Air 03/23/17 00:00 Nasal Cannula 2.0 03/22/17 23:40 36.2 110 22 175/90 (118) 100 Room Air 03/22/17 20:12 90 18 97 Room Air 03/22/17 20:00 Nasal Cannula 2.0 03/22/17 19:00 36.8 101 22 158/80 (106) 95 Room Air 03/22/17 16:00 Nasal Cannula 2.0 03/22/17 15:00 36.3 92 18 145/71 (95) 97 Nasal Cannula 2.0 (Catherine Rene ., PA-C) Physical Exam General Appearance: no apparent distress, + obese Eyes: normal inspection, PERRL ENT: hearing grossly normal Neck: supple, no JVD Respiratory/Chest: no respiratory distress, no accessory muscle use, + decreased breath sounds (throughout ), + crackles (mild at lung bases ) Cardiovascular: + irregularly irregular (rate controlled ) Abdomen: normal bowel sounds, non tender, soft Extremities: no pedal edema, no calf tenderness Neurologic/Psychiatric: alert, normal mood/affect, oriented x 3 Skin: normal color, warm/dry, no rash (Catherine Rene ., PA-C) Laboratory Results Last 24 Hours Test 03/22/17 15:00 03/22/17 16:03 03/22/17 16:58 03/22/17 17:53 Bedside Glucose 215 mg/dl 189 mg/dl 167 mg/dl 229 mg/dl Test 03/22/17 19:03 03/22/17 20:08 03/23/17 07:02 03/23/17 07:17 Bedside Glucose 161 mg/dl 185 mg/dl 102 mg/dl Sodium Level 139 mmol/L Potassium Level 3.9 mmol/L Chloride Level 105 mmol/L Carbon Dioxide Level 27 mmol/L Anion Gap 7.0 mmol/L Blood Urea Nitrogen 31 mg/dl Creatinine 1.46 mg/dl Est Creatinine Clear Calc Drug Dose 49.7 ml/min Estimated GFR () 52.6 Estimated GFR (Non- 45.4 BUN/Creatinine Ratio 21.4 Random Glucose 105 mg/dl Calcium Level 9.4 mg/dl Total Creatine Kinase 595 U/L Test 03/23/17 10:55 Bedside Glucose 128 mg/dl (Catherine Rene ., PA-C) Assessment and Plan 76 y/o male who presented to the ED with complaints of SOB and fatigue. Influenza A: - Tamiflu x5 days - Supportive care- O2 protocol, continue home inhalers, DuoNebs, incentive spirometer, flutter valve, Mucinex 600 mg BID - Droplet precautions - CPK- trending down Acute/chronic systolic/diastolic CHF, HLD, HTN, CAD: - Treating w/ IV Lasix- will give additional 40 mg x1 today - Continue Pravastatin 40 mg HS, Metoprolol 25 mg daily - Monitor I&Os and daily weights Acute hypoxic respiratory failure, secondary to influenza/CHF/asthma- RESOLVED: - Treated as above - UA and BCx negative Atrial tachyarrhythmia: - Monitor on tele - Discussed w/ cardiology- no anticoagulation at this time due to quick burst of episodes and on chronic Prednisone (increased risk of GI bleed) Elevated troponin, likely secondary to demand ischemia: - Continue Plavix 75 mg daily - he has had no ischemic symptoms making it more likely this is myocardial demand ischemia rather than true ACS. 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- RESOLVING: IV Lasix as above and follow PRP Hypokalemia- RESOLVED: Continue KCL 20 mEq supplement, follow PRP and replace PRN Hypothyroidism- TSH 0.247: Continue Synthroid 75 mcg daily and f/u w/ PCP ?LLL PNA: Repeat CXR w/out evidence of infection- prophylactically treated w/ IV Rocephin, discontinued Adrenally insufficiency: Stress dosed- currently at 20 mg BID, will resume 20 mg QAM and 10 mg HS tomorrow Depression: Continue Wellbutrin XL 150 mg by mouth daily BPH: Continue Proscar DVT prophylaxis: Heparin SQ TID Code Status: LEVEL I, FULL Dispo: From home, lives w/ family- PT/OT consulted, recommend return home w/ family assistance (Catherine Rene, PA-C) Attending Attestation: Pt seen/examined, chart reviewed, care plan d/w DORINA Rene. I agree w/ the harrell components of her documentation. Pt had orthopnea overnight Also w/ cough/wheezing. Tele with runs of PAF. VSS o2 sats stable in RA gen - NAD neck - no JVD heart - irregular, s1, s2, no murmur lungs - mild end-exp wheeze, minimal rales bases abd - soft ext - no edema A/P: 1. acute hypoxic resp failure - multifactorial - resolved. 2. flu A infection - resolving; finish tamiflu course (day # 3 of such). 3. acute/chronic systolic/diastolic CHF - improving; agree w/ another dose of lasix today IV. 4. asthma, with probable mild exacerbation - would hold off on higher amounts of steroids as he had significant hyperglycemia leading to need for insulin drip. Nebs, mucinex, incentive jaxon for now. 5. adrenal insuff - received stress doses, cont to wean to 20 & 10mg doses, respectively, as at home. 6. acute kidney injury - resolving with diuresis. 7. PAF - management per cardiology cleared by PT, OT to return home when medically stable Jose Luis Gonzalez MD (Jose Luis Gonzalez MD)
[2017-03-23] MEDS: GUAIFENESIN 600 MG TABCR PO SCH (20:32)
[2017-03-23] MEDS: FENOFIBRATE 145 MG TAB PO SCH (20:33)
[2017-03-23] MEDS: PRAVASTATIN SOD 40 MG TAB PO SCH (20:33)
[2017-03-24] VITALS (7 sets, daily range): BP systolic 148–173; BP diastolic 70–98; PULSE 70–91; TEMP 36.4–36.7; O2SAT 96–98; Ht 177.8 cm; Wt 99.4 kg
[2017-03-24] MEDS: IPRATROPIUM BROMIDE NEB SOLN 0.02% 2.5 ML VIAL INH SCH ×3 (02:34→14:38)
[2017-03-24] MEDS: LEVALBUTEROL 1.25MG/0.5ML NEB INH SCH ×3 (02:34→14:38)
[2017-03-24] MEDS: LEVOTHYROXINE 75 MCG TAB PO SCH (06:07)
[2017-03-24] MEDS: HEPARIN SOD 5000 UNIT/0.5 ML CARP SQ SCH (06:08)
[2017-03-24] MEDS: BUDESONIDE 0.5 MG/2 ML VIAL (PULMICORT) INH SCH (07:10)
[2017-03-24] MEDS: OSELTAMIVIR PHOSPHATE 75 MG CAP PO SCH (07:44)
[2017-03-24] MEDS: BuPROPion XL 150 MG TABCR PO SCH (07:44)
[2017-03-24] MEDS: CLOPIDOGREL BISULFATE 75 MG TAB PO SCH (07:44)
[2017-03-24] MEDS: METOPROLOL SUCC 25MG EXT REL TAB PO SCH (07:45)
[2017-03-24] MEDS: FINASTERIDE 5 MG TAB PO SCH (07:45)
[2017-03-24] MEDS: GUAIFENESIN 600 MG TABCR PO SCH (07:46)
[2017-03-24] MEDS: POTASSIUM CHLORIDE 20 MEQ TABCR PO SCH (07:48)
[2017-03-24] MEDS: INSULIN ASPART 100 UNITS/ML 3 ML PEN SC SCH ×2 (07:48→11:47)
[2017-03-24] MEDS: INSULIN GLARGINE SOLOSTAR 100 UNITS/ML 3 ML PEN SC SCH (07:59)
[2017-03-24] MEDS ORDERED: HYDROCORTISONE 10 MG TAB PO SCH ×2 (09:00→21:00)
[2017-03-24 10:06] LABS: CALCIUM 9.3 mg/dl (8.5-10.1); CREATININE 1.42 mg/dl (0.60-1.40); POTASSIUM 3.9 mmol/L (3.5-5.1)
[2017-03-24] MEDS ORDERED: FUROSEMIDE 40 MG TAB PO SCH (12:00)
--- NOTE | 2017-03-24 14:00 | Cardiology Follow-Up ---
Subjective Date of Service: Mar 24, 2017. Pt evaluation today including: conversation w/ patient, physical exam, lab review, review of studies, review of inpatient medication list History of Present Illness He is feeling very well today, he is not short of breath and he is anxious to go home. No palpitations or cardiovascular symptoms. Social History Smoking Status: Never Smoker History of Alcohol Use: No Review of Systems Respiratory: + cough, + dyspnea on exertion, No sputum, No wheezing, No dyspnea at rest Cardiac: No chest pain, No orthopnea Medications Cardiovascular: Item Value Date Time Furosemide 40 mg 03/24/17 1200 (Lasix Tab) QAM/PO 03/24/17 1240 Clopidogrel 75 mg 03/22/17 0900 Bisulfate QAM/PO 03/24/17 0744 (plAVix TAB) Fenofibrate 145 mg 03/21/17 2100 (Tricor Tab) HS/PO 03/23/172032 Pravastatin Sodium 40 mg 03/21/17 2100 (Pravachol Tab) QPM/PO 03/23/172032 Metoprolol 25 mg 03/21/17 0900 Succinate DAILY/PO 03/24/17 0745 (Toprol Xl Tab) Potassium Chloride 20 meq 03/21/17 0900 (Klor-Con Tab) DAILY/PO 03/24/17 0748 Objective Vital Signs Past 12 Hours Date Time Temp Pulse Resp B/P (MAP) Pulse Ox O2 Delivery O2 Flow Rate FiO2 03/24/17 11:30 87 98 03/24/17 11:05 91 20 172/90 (117) 97 Room Air 03/24/17 07:36 36.4 70 20 173/98 (123) 96 Room Air 03/24/17 07:30 Room Air 03/24/17 07:10 73 18 97 Room Air 03/24/17 04:00 Room Air 03/24/17 03:38 36.7 86 24 148/70 (96) 97 Room Air Last Recorded Weight-Kilograms: 99.400 Physical Exam Constitutional: Level of Distress: NAD Lungs: Auscultation: breath sounds normal, no wheezing, no rales/crackles Cardiovascular: Heart Auscultation: RRR, no murmurs Extremities: no edema Data Laboratory Results: Last 24 Hours Test 03/23/17 16:15 03/23/17 20:02 03/24/17 06:42 03/24/17 07:45 Bedside Glucose 116 mg/dl 130 mg/dl 94 mg/dl Sodium Level 139 mmol/L Potassium Level 3.9 mmol/L Chloride Level 105 mmol/L Carbon Dioxide Level 26 mmol/L Anion Gap 8.0 mmol/L Blood Urea Nitrogen 30 mg/dl Creatinine 1.42 mg/dl Est Creatinine Clear Calc Drug Dose 50.7 ml/min Estimated GFR () 54.4 Estimated GFR (Non- 47.0 BUN/Creatinine Ratio 21.4 Random Glucose 92 mg/dl Calcium Level 9.3 mg/dl Magnesium Level 2.3 mg/dl Test 03/24/17 11:34 03/24/17 11:35 03/24/17 11:53 Bedside Glucose 68 mg/dl 69 mg/dl 83 mg/dl Telemetry reviewed: Sinus rhythm, no significant arrhythmia Pacemaker evaluation: Only one episode of atrial fibrillation of any significance in the last year, and that was 15 minutes in duration. Pacemaker working well. Assessment and Plan #1. Shortness of breath: His shortness of breath has improved significantly, either with treatment of his fluid retention, flu symptoms or both. He is not short of breath today. #2. Flu: Symptomatically markedly improved. #3. Congestive heart failure: He does not seem to have significant heart failure and I think he can be discharged from that standpoint. #4. Elevated troponin: This is most consistent with demand ischemia, the troponins are quite low and in a decreasing pattern. No further evaluation. #5. Atrial fibrillation: He has very brief episodes of atrial fibrillation, the longest in the last year was 15 minutes and all others appear to be seconds in duration. I don't believe this warrants anticoagulation but we will continue to monitor for longer episodes using his device. #6. Dual-chamber pacemaker: Functioning well to this time, monitoring demonstrates only very brief episodes of atrial fibrillation, the longest in the last year was 15 minutes. Overall burden is very low. Battery voltage is good. He should have an upcoming visit in our office, I will leave that in place. Thank you for allowing me to participate in his care.
[2017-03-24] MEDS ORDERED: PLV75 PO (14:07)
[2017-03-24] MEDS ORDERED: TMF75 PO (14:07)
--- NOTE | 2017-03-24 14:11 | Discharge Instructions ---
Discharge Instructions Date of Service Mar 24, 2017. Admission Reason for Admission: Influenza A, Nstemi, Initial Episode Of Care Discharge Discharge Diagnosis / Problem: Influenza Discharge Goals Goal(s): Decrease discomfort, Improve function, Increase independence, Improve disease control, Learn about illness, Diagnostic testing, Therapeutic intervention, Prevent Disease Progression Activity Recommendations Activity Limitations: resume your previous activity . Instructions / Follow-Up Instructions / Follow-Up Influenza (flu): Tamiflu 75 mg twice a day until prescription is completed- first dose will be tonight (03/24) You have been started on Plavix 75 mg once daily by cardiology Resume all other regular home medications as prescribed FOLLOW-UPS: Please follow-up with your PCP within 5-7 days Please follow-up with Cardiology as instructed by Dr. Haley Please follow-up/keep all of your subspecialty appointments Current Hospital Diet Patient's current hospital diet: AHA Diet (Heart Healthy), Diabetes Type 2 Diet Discharge Diet Recommended Diet: AHA Diet (Heart Healthy), Diabetes Type 2 Diet Pending Studies Studies pending at discharge: no Laboratory Results Hemoglobin A1c Test 03/21/17 01:43 Range/Units Estimated Average Glucose 186 mg/dl Hemoglobin A1c 8.1 H 4.5-5.6 % Lipid Panel Test 03/21/17 03:08 Range/Units Triglycerides Level 164 H 0-150 mg/dl Cholesterol Level 143 0-200 mg/dl HDL Cholesterol 25 mg/dl Cholesterol/HDL Ratio 5.7 LDL Cholesterol, Calculated 85 mg/dl Medical Emergencies . Who to Call and When: Medical Emergencies: If at any time you feel your situation is an emergency, please call 911 immediately. . Non-Emergent Contact Non-Emergency issues call your: Primary Care Provider, Molded Goods Inspector Trimmer Call Non-Emergent contact if: you have any medication questions . . "Provider Documentation" section prepared by Catherine Rene. . VTE Core Measure Inpt VTE Proph given/why not?: Unfractionated heparin SQ
--- NOTE | 2017-03-24 14:23 | Discharge Summary ---
Discharge Summary Date of Service Mar 24, 2017. Discharge Summary Admission Date: Mar 21, 2017 at 03:44 Discharge Date: Mar 24, 2017 Discharge Disposition: Home Principal Diagnosis: Influenza A Problems/Secondary Diagnoses: Acute/chronic systolic/diastolic CHF HLD HTN CAD Acute hypoxic respiratory failure asthma Atrial tachyarrhythmia Elevated troponin, likely secondary to demand ischemia T2DM- hgbA1c 8.1% EDA on CKD stage III Hypokalemia Hypothyroidism ?LLL PNA Adrenally insufficiency Depression BPH Immunizations: Have You Had Influenza Vaccine: Yes Influenza Vaccine Date: Jan 02, 2013 History of Tetanus Vaccine?: UTD History of Pneumococcal: Yes Pneumococcal Date: Jun 18, 2011 History of Hepatitis B Vaccine: No Procedures: SINGLE VIEW CHEST CLINICAL HISTORY: Atypical chest pain. FINDINGS: An AP, portable, upright chest radiograph is compared to chest x-ray and chest CT dated 10/26/2016. The examination is degraded by portable technique and patient rotation. A 2-lead cardiac pacemaker is unchanged in position and partially obscures the left upper chest. The heart is enlarged and there is atherosclerotic calcification of the thoracic aorta. The pulmonary vasculature is noncongested. There is bibasilar atelectasis. Airspace opacities are present the left lung base and likely represent atelectasis. No pleural effusion or pneumothorax is seen. Apical scarring is observed. The skeletal structures are osteopenic. There are healed right-sided rib fractures. IMPRESSION: 1. Cardiomegaly and cardiac pacemaker. There is no radiographic evidence of congestive failure. 2. Left basilar airspace opacities likely represent atelectasis. Cortical clinically for evidence of superimposed pneumonia. Electronically signed by: Osei Pyle M.D. 03/21/2017 11:01 AM Dictated Date/Time: 03/21/2017 10:58 AM The status of this report is Signed. Draft = Not yet reviewed or approved by Radiologist. Signed = Reviewed and approved by Radiologist. CHEST 2 VIEWS ROUTINE CLINICAL HISTORY: influenza, question of pneumonia on prior cxr COMPARISON STUDY: 03/21/2017 FINDINGS: The heart is mildly enlarged. As a left subclavian dual-chamber central venous pacemaker present. Trace pleural effusions are suspected. There is minor basilar interstitial thickening. There is no lobar consolidation.[ There are old right-sided rib deformities. IMPRESSION: Minor basilar interstitial thickening/atelectasis. Trace pleural effusions. No conventional radiographic evidence of pneumonia. Electronically signed by: Star Pro M.D. 03/22/2017 12:04 PM Dictated Date/Time: 03/22/2017 12:02 PM The status of this report is Signed. Draft = Not yet reviewed or approved by Radiologist. Signed = Reviewed and approved by Radiologist. ECHO Interpretation Summary * Name: BARBARA NAVARRO Study Date: 03/21/2017 02:23 PM BP: 145/73 mmHg * Patient Location: [facility]\S\22\S\1 HR: 86 * : 1940 (M/d/yyyy) Gender: Male Height: 70 in * Age: 76 yrs Ethnicity: [place] Weight: 222 lb * Ordering Physician: Trevor Gonzalez * Referring Physician: Self, Referred * Performed By: Kimberly Davis RDCS * * Reason For Study: CHF * BSA: 2.2 m2 * -- Conclusions -- * The study was technically limited. * There is moderate concentric left ventricular hypertrophy. * There are regional wall motion abnormalities as specified. * Right ventricular systolic pressure is normal. * Left ventricular systolic function is borderline reduced. * The left atrium is moderately dilated. * Compared to an echocardiogram performed on 10/27/2016 in taking into account the difference in technique, no appreciable change. Procedure Details * A contrast injection of Definity was performed to improve assessment of LV function. * Contrast was injected into an intravenous site in the left arm. * One vial of Definity ultrasound contrast was diluted in normal saline to a total volume of 10 ml. A total of '1' ml of solution was administered during imaging. * Lot # [id number] of Definity utilized for procedure. * Expiration date MAY 09. * The attending nurse who injected the contrast agent was COLTON CHONG. * The study was technically limited. Left Ventricle * The left ventricle is grossly normal size. * There is moderate concentric left ventricular hypertrophy. * Left ventricular systolic function is borderline reduced. * Ejection Fraction = 45-50%. * There are regional wall motion abnormalities as specified. * Posterior wall appears to be moderately hypokinetic Right Ventricle * The right ventricle is grossly normal size. * The right ventricular systolic function is normal as assessed by tricuspid annular plane systolic excursion (TAPSE) (normal >1.5 cm). Atria * The left atrium is moderately dilated. * Right atrial size is normal. Mitral Valve * The mitral valve is grossly normal. * There is trace mitral regurgitation. Tricuspid Valve * The tricuspid valve is not well visualized. * There is trace tricuspid regurgitation. * Right ventricular systolic pressure is normal. Aortic Valve * The aortic valve is normal in structure and function. * The aortic valve is trileaflet. * No hemodynamically significant valvular aortic stenosis. * There is no significant aortic regurgitation. Great Vessels * The aortic root is normal size. Pericardium/Pleural * There is no pericardial effusion. Consultations: Cardiology Medication Reconciliation New Medications: Clopidogrel Bisulfate (Clopidogrel) 75 Mg Tab 75 MG PO QAM for 30 Days, #30 TAB Oseltamivir Phosphate (Tamiflu) 75 Mg Cap 75 MG PO BID for 2 Days, #3 CAP Continued Medications: Albuterol Hfa (Ventolin Hfa) 200 Puffs/04913 Mcg Aers 2 PUFFS INH QID PRN for Shortness of Breath Budesonide/Formoterol Fumarate (Symbicort 80/4.5 Inhaler) Aero 2 PUFFS INH BID Bupropion Hcl (Wellbutrin Xl) 150 Mg Tab 150 MG PO DAILY Fenofibrate (Tricor ) 145 Mg Tab 145 MG PO HS, TAB Finasteride (Proscar) 5 Mg Tab 5 MG PO QAM, TAB Furosemide (Lasix) 40 Mg Tab 40 MG PO QAM, TAB Home O2 Therapy (Oxygen) Gas 2 LITERS NA CONTINOUS, BTL Hydrocortisone (Cortef) 10 Mg Tab 10 MG PO QPM, TAB Hydrocortisone (Cortef) 20 Mg Tab 20 MG PO QAM Insulin Glargine (Lantus) 100 Unit/Ml Inj 55 UNITS SC BID Levothyroxine Sodium (Levothyroxine Sodium) 75 Mcg Tab 75 MCG PO QAM, TAB 5 Refills Metoprolol Succinate (Toprol Xl) 25 Mg Tabcr 25 MG PO DAILY Potassium Ext Rel (Klor-Con) 20 Meq Tabcr 20 MEQ PO DAILY Pravastatin Sodium (Pravastatin Sodium) 40 Mg Tab 1 TAB PO QPM for 90 Days, TAB 3 Refills Zafirlukast (Zafirlukast) 20 Mg Tab 20 MG PO BID Discharge Exam Review of Systems: Constitutional: No fever, No chills, No sweats, No weakness, No fatigue Eyes: No worsening of vision ENT: No hearing loss Respiratory: + cough, No sputum, No wheezing, No shortness of breath, No dyspnea on exertion, No hemoptysis Cardiovascular: No chest pain, No edema, No palpitations Abdomen: No pain, No nausea, No vomiting, No diarrhea, No constipation Musculoskeletal: No joint pain, No muscle pain, No swelling, No calf pain Genitourinary - Male: No hematuria, No dysuria Neurologic: No weakness, No numbness/tingling Psychiatric: No depression symptoms, No anxiety Endocrine: No fatigue Hematologic / Lymphatic: No abnormal bleeding/bruising Integumentary: No rash, No itch, No new/changing skin lesions Physical Exam: General Appearance: no apparent distress, + obese Eyes: normal inspection, PERRL ENT: hearing grossly normal Neck: supple Respiratory/Chest: no respiratory distress, no accessory muscle use, + decreased breath sounds (bilateral lung bases ), + wheezing (slight expiratory wheeze at lower lung bases ) Cardiovascular: regular rate, rhythm Abdomen / GI: normal bowel sounds, non tender, soft Extremities: no calf tenderness, no pedal edema Neurologic/Psychiatric: alert, normal mood/affect, oriented x 3 Skin: normal color, warm/dry, no rash Hospital Course Admission H&P: The patient is a 76-year-old male, accompanied by his , who presents to the emergency department with 3 weeks of shortness of breath and generally not feeling well. Over the past few days, his symptoms have worsened. He reports cough of intermittent green sputum, chest congestion, fevers, generalized myalgias and arthralgias, and shortness of breath. He also has developed intermittent chest heaviness. Physical Exam Vital Signs Date Time Temp Pulse Resp B/P (MAP) Pulse Ox O2 Delivery O2 Flow Rate FiO2 03/21/17 02:01 102/58 03/21/17 01:58 99 29 100 03/21/17 01:47 105 95 Nasal Cannula 2.0 03/21/17 01:43 108 34 95 03/21/17 01:31 136/93 03/21/17 01:28 101 34 95 03/21/17 01:13 145 39 95 03/21/17 01:00 150/72 03/21/17 00:58 150 28 03/21/17 00:51 79 03/21/17 00:43 115 24 93 Nasal Cannula 2.0 03/21/17 00:36 143/61 03/21/17 00:36 38.6 115 34 143/61 96 Nasal Cannula 2.0 The patient is awake, alert and oriented 3, normocephalic and atraumatic, lying in bed and in no acute distress. HEENT--PERRL, EOMI, mucous membranes and oropharynx dry. Neck--supple, no JVD or bruits, thyroid normal, trachea midline, no adenopathy. Heart--tachycardic, PACs. No murmurs, rubs or gallops. Lungs--coarse breath sounds bilaterally, no respiratory distress, no accessory muscle use. Abdomen--normal bowel sounds and soft, nontender. Mildly distended and tympanitic, no hernias or masses, Extremities--no cyanosis, clubbing or edema. There are good distal pulses b/l. Dermatologic--normal skin turgor, normal color, warm and dry, no abnormal lymph nodes, no rash. Neurologic--cranial nerves II through XII grossly intact. Rheumatologic--normal range of motion. Psychiatric--normal affect. Hospital Course: 76 y/o male who presented to the ED with complaints of SOB and fatigue. Influenza A: - Tamiflu x5 days- last day of treatment on 03/25 - Supportive care- O2 protocol, continue home inhalers, DuoNebs, incentive spirometer, flutter valve, Mucinex 600 mg BID - Droplet precautions - CPK- trending down Acute/chronic systolic/diastolic CHF, HLD, HTN, CAD: - Treating w/ IV Lasix- resume home regimen at discharge - Continue Pravastatin 40 mg HS, Metoprolol 25 mg daily - Monitor I&Os and daily weights - Cardiology following Acute hypoxic respiratory failure, secondary to influenza/CHF/asthma- RESOLVED: - Treated as above - UA and BCx negative Atrial tachyarrhythmia: - Monitor on tele - Discussed w/ cardiology- no anticoagulation at this time due to quick burst of episodes and on chronic Prednisone (increased risk of GI bleed) - Cardiology following Elevated troponin, likely secondary to demand ischemia: - Plavix 75 mg daily- he has had no ischemic symptoms making it more likely this is myocardial demand ischemia rather than true ACS. - ECHO unchanged from prior T2DM- hgbA1c 8.1%: - Hyperglycemia due to IV Steroids- treated w/ insulin drip- RESOLVED - Continue Lantus 55 u BID - BSG ACHS and ISS EDA on CKD stage III, likely secondary to CHF- baseline peanut roaster 1.2-1.4- RESOLVED: IV Lasix as above and follow PRP Hypokalemia- RESOLVED: Continue KCL 20 mEq supplement, follow PRP and replace PRN Hypothyroidism- TSH 0.247: Continue Synthroid 75 mcg daily and f/u w/ PCP ?LLL PNA: Repeat CXR w/out evidence of infection- prophylactically treated w/ IV Rocephin, discontinued Adrenally insufficiency: Stress dosed and weaned, now on home dose of 20 mg QAM and 10 mg HS Depression: Continue Wellbutrin XL 150 mg by mouth daily BPH: Continue Proscar DVT prophylaxis: Heparin SQ TID Code Status: LEVEL I, FULL Dispo: Discharge to home PA Physician Supervision Note: I interviewed and examined the patient. Discussed with Catherine MOTTA and agree with findings and plan as documented in the note. Any exceptions or clarifications are listed here: None Patient was pacing the hallways waiting to leave today he was doing well after history of a for influenza and tachyarrhythmia who was attended to by Dr. Haley. Blood pressure is mildly elevated at time of discharge of the patient was anxious to leave he was having no shortness of breath or chest pain His cardiac exam was mildly tachycardic lungs were clear Patient treated for influenza a, tachyarrhythmia seen by electrophysiology, continue metoprolol for rate control no formal anticoagulation remaining on home oxygen treatment for COPD and close outpatient follow-up Documented By: Ion White Total Time Spent: Greater than 30 minutes This includes examination of the patient, discharge planning, medication reconciliation, and communication with other providers. Discharge Instructions Please refer to the electronic Patient Visit Report (Discharge Instructions) for additional information. Follow-Up Please follow-up with your PCP within 5-7 days Please follow-up with Cardiology as instructed by Dr. Haley Please follow-up/keep all of your subspecialty appointments Additional Copies To Maegan Delgado M.D.
== END 2017-03-24 15:15 | disposition home or self-care (01) | DRG 193 ==
LOC: EDBD 00:28 → C.EDB 00:30 → C.2T 03:44 → ENRESERV 04:17
PROVIDERS: ADMIT Hospitalist; ATTEND Internal Medicine
DX: J10.1 Influenza due to other identified influenza virus with other respiratory manifestations (principal); I50.43 Acute on chronic combined systolic (congestive) and diastolic (congestive) heart failure; J96.21 Acute and chronic respiratory failure with hypoxia; I47.1 Supraventricular tachycardia; N17.9 Acute kidney failure, unspecified; I24.8 Other forms of acute ischemic heart disease; I13.0 Hypertensive heart and chronic kidney disease with heart failure and stage 1 through stage 4 chronic kidney disease, or unspecified chronic kidney disease; J45.51 Severe persistent asthma with (acute) exacerbation; E78.5 Hyperlipidemia, unspecified; N40.0 Benign prostatic hyperplasia without lower urinary tract symptoms; E03.9 Hypothyroidism, unspecified; E87.6 Hypokalemia; F32.9 Major depressive disorder, single episode, unspecified; E11.65 Type 2 diabetes mellitus with hyperglycemia; N18.3 Chronic kidney disease, stage 3 (moderate); I25.10 Atherosclerotic heart disease of native coronary artery without angina pectoris; Z79.4 Long term (current) use of insulin; Z79.899 Other long term (current) drug therapy; Z95.0 Presence of cardiac pacemaker

== ENCOUNTER 2017-03-25 13:55 | Emergency (ER) | payer OTHER ==
[~2017-03-25] VITALS: Ht 177.8 cm; Wt 100.0 kg
[~2017-03-25 13:55] MED LIST changes: -HYDR-5688 PO; -MOME200A INH; +OXGN; -OXYC1TAB3 PO; +PLV75 PO; +TMF75 PO; -TRAM-453 PO; -ZOLP5TAB6 PO
[2017-03-25 14:17] VITALS: TEMP 36.8
[2017-03-25 14:33] VITALS: Ht 177.8 cm; Wt 100.0 kg
[2017-03-25 14:35] VITALS: O2SAT 96
--- NOTE | 2017-03-25 14:39 | EMERGENCY ROOM VISIT NOTE ---
History First contact with patient: 14:00 Chief Complaint: ILLNESS Stated Complaint: SOB/HYPOGLYCEMIA History of Present Illness The patient is a 76 year old male who presents to the Emergency Room due to breathing difficulties and AMS. As per the paramedics, his sugar was found to be 45 and after administration of D10, came up to 166. His family had reported he had not eaten since yesterday. He was discharged from [facility] yesterday with a diagnosis of influenza and recent troponin elevation felt to be a supply/demand mismatch due to his illness. Mr. Greer reports he feels "awful" but is unable to go into further detail. He denies being in any pain, specifically denies chest pain. He remains with his cough which is nonproductive and feels short of breath at rest. He denies fever, chills, nausea, vomiting, but states his appetite is diminished. He is unable to recount his past admission and whether he feels the same, or worse than when he was discharged. He denies any recent falls. He is a lifelong nonsmoker. Review of Systems See HPI for pertinent positives & negatives. A total of 10 systems reviewed and were otherwise negative. Past Medical/Surgical History Medical Problems: (1) Asthma (2) Benign hypertension (3) Chronic congestive heart failure (4) Diabetes mellitus (5) Heart disease (6) NSTEMI, initial episode of care Family History Hypertension Social History Smoking Status: Never Smoker Alcohol Use: none Drug Use: none Marital Status: Housing Status: lives with significant other Occupation Status: employed Current/Historical Medications Scheduled Budesonide/Formoterol Fumarate (Symbicort 80/4.5 Inhaler), 2 PUFFS INH BID Bupropion Hcl (Wellbutrin Xl), 150 MG PO DAILY Clopidogrel Bisulfate (Clopidogrel), 75 MG PO QAM Fenofibrate (Tricor ), 145 MG PO HS Finasteride (Proscar), 5 MG PO QAM Furosemide (Lasix), 40 MG PO QAM Home O2 Therapy (Oxygen), 2 LITERS NA CONTINOUS Hydrocortisone (Cortef), 10 MG PO QPM Hydrocortisone (Cortef), 20 MG PO QAM Insulin Glargine (Lantus), 55 UNITS SC BID Levothyroxine Sodium (Levothyroxine Sodium), 75 MCG PO QAM Metoprolol Succinate (Toprol Xl), 25 MG PO DAILY Oseltamivir Phosphate (Tamiflu), 75 MG PO BID Potassium Ext Rel (Klor-Con), 20 MEQ PO DAILY Pravastatin Sodium (Pravastatin Sodium), 1 TAB PO QPM Zafirlukast (Zafirlukast), 20 MG PO BID Scheduled PRN Albuterol Hfa (Ventolin Hfa), 2 PUFFS INH QID PRN for Shortness of Breath Physical Exam Vital Signs Date Time Temp Pulse Resp B/P (MAP) Pulse Ox O2 Delivery O2 Flow Rate FiO2 03/25/17 15:39 96 22 149/92 99 Nasal Cannula 2.0 03/25/17 14:59 100 16 139/66 96 Room Air 03/25/17 14:35 96 Room Air 03/25/17 14:17 36.8 95 22 153/80 96 Room Air 03/25/17 14:11 97 Physical Exam HEENT: Head - normocephalic and atraumatic. Nose - moist nasal mucosa without discharge. Mouth - moist buccal mucosa. Oropharynx is nonerythematous and there is no tonsillar exudate or edema noted. Neck: Supple; no JVD, nuchal rigidity, cervical lymphadenopathy, or auscultated bruits. Heart: Regular rate and rhythm. There is a normal S1 and S2 with no murmurs, clicks, or gallops appreciated. Lungs: Coarse, diminished breath sounds, particularly at the bases. No wheezes, rales, or rhonchi. Abdomen: Soft, completely nontender, nondistended, with good bowel sounds. There is no guarding, rigidity, or rebound noted. Extremities: Cool extremities, no evidence of cyanosis, clubbing, or edema. There are easily palpable peripheral pulses. Neuro:The patient is awake and alert, oriented to day, time, and place. Medical Decision & Procedures ER Provider Diagnostic Interpretation: CHEST ONE VIEW PORTABLE CLINICAL HISTORY: 76 years-old Male presenting with EVALUATE RESPIRATORY DISTRESS.DYSPNEA. TECHNIQUE: Portable upright AP view of the chest was obtained. COMPARISON: 03/22/2017. FINDINGS: Left subclavian pacer with leads to the right atrium and right ventricular apex. Atherosclerosis of aortic arch. Cardiac silhouette moderately enlarged, unchanged. Minimal linear opacities at the lung bases. No new focal infiltrate. No large pleural effusion or pneumothorax. Degenerative changes of the thoracic spine. IMPRESSION: 1. Minimal bibasilar atelectasis. No convincing evidence of acute cardiopulmonary disease. 2. Cardiomegaly. Laboratory Results 03/25/17 14:45 Red Blood Count 5.07, Mean Corpuscular Volume 88.6, Mean Corpuscular Hemoglobin 29.0, Mean Corpuscular Hemoglobin Concent 32.7, Mean Platelet Volume 9.9, Neutrophils (%) (Auto) 80.1, Lymphocytes (%) (Auto) 9.2, Monocytes (%) (Auto) 8.5, Eosinophils (%) (Auto) 0.2, Basophils (%) (Auto) 0.2, Neutrophils # (Auto) 8.86, Lymphocytes # (Auto) 1.02, Monocytes # (Auto) 0.94, Eosinophils # (Auto) 0.02, Basophils # (Auto) 0.02 03/25/17 14:45 Test 03/25/17 14:45 03/25/17 16:20 White Blood Count 11.06 K/uL (4.8-10.8) Red Blood Count 5.07 M/uL (4.7-6.1) Hemoglobin 14.7 g/dL (14.0-18.0) Hematocrit 44.9 % (42-52) Mean Corpuscular Volume 88.6 fL (80-100) Mean Corpuscular Hemoglobin 29.0 pg (25-34) Mean Corpuscular Hemoglobin Concent 32.7 g/dl (32-36) Platelet Count 186 K/uL (130-400) Mean Platelet Volume 9.9 fL (7.4-10.4) Neutrophils (%) (Auto) 80.1 % Lymphocytes (%) (Auto) 9.2 % Monocytes (%) (Auto) 8.5 % Eosinophils (%) (Auto) 0.2 % Basophils (%) (Auto) 0.2 % Neutrophils # (Auto) 8.86 K/uL (1.4-6.5) Lymphocytes # (Auto) 1.02 K/uL (1.2-3.4) Monocytes # (Auto) 0.94 K/uL (0.11-0.59) Eosinophils # (Auto) 0.02 K/uL (0-0.5) Basophils # (Auto) 0.02 K/uL (0-0.2) RDW Standard Deviation 54.9 fL (36.4-46.3) RDW Coefficient of Variation 17.0 % (11.5-14.5) Immature Granulocyte % (Auto) 1.8 % Immature Granulocyte # (Auto) 0.20 K/uL (0.00-0.02) Prothrombin Time 11.8 SECONDS (9.0-12.0) Prothromb Time International Ratio 1.1 (0.9-1.1) Activated Partial Thromboplast Time 28.5 SECONDS (21.0-31.0) Partial Thromboplastin Ratio 1.1 Anion Gap 7.0 mmol/L (3-11) Est Creatinine Clear Calc Drug Dose 51.9 ml/min Estimated GFR () 55.9 Estimated GFR (Non- 48.2 BUN/Creatinine Ratio 18.8 (10-20) Calcium Level 9.1 mg/dl (8.5-10.1) Total Bilirubin 0.9 mg/dl (0.2-1) Aspartate Amino Transf (AST/SGOT) 34 U/L (15-37) Alanine Aminotransferase (ALT/SGPT) 44 U/L (12-78) Alkaline Phosphatase 45 U/L (45-117) Troponin I 0.098 ng/ml (0-0.045) Pro-B-Type Natriuretic Peptide 3394 pg/ml (0-1800) Total Protein 7.6 gm/dl (6.4-8.2) Albumin 3.3 gm/dl (3.4-5.0) Globulin 4.3 gm/dl (2.5-4.0) Albumin/Globulin Ratio 0.8 (0.9-2) Urine Color DK YELLOW Urine Appearance CLEAR (CLEAR) Urine pH 5.5 (4.5-7.5) Urine Specific [place] 1.026 (1.000-1.030) Urine Protein NEG (NEG) Urine Glucose (UA) TRACE (NEG) Urine Ketones TRACE (NEG) Urine Occult Blood NEG (NEG) Urine Nitrite NEG (NEG) Urine Bilirubin NEG (NEG) Urine Urobilinogen NEG (NEG) Urine Leukocyte Esterase NEG (NEG) Medications Administered Medications (Trade) Dose Ordered Sig/Laila Route Start Time Stop Time Status Last Admin Dose Admin Clopidogrel Bisulfate (plAVix TAB) 75 mg NOW ONCE PO 03/25/17 16:15 03/25/17 16:16 DC 03/25/17 16:16 75 MG ED Course 14:00: The patient was evaluated in room A12. A complete history and physical exam was performed. 14:25: The case was discussed with the attending, Dr. Austin. 15:40: Discussion with family - daughter states she would like Mr. Greer to return home with her on d/c so she can care for him. He currently lives at home with his . She reports he has been having difficulty with memory and concentration over the past few days but that he is not far off from baseline. 16:15: 75mg of clopidogrel ordered as patient did not take home dose today. 16:25: 25mg of metoprolol succinate ordered 16:30: Discussed the lab and x-ray findings with the family. They were agreeable to discharge and his daughter stated that he will go home with her so she can look after him as he recovers. Medical Decision Etiologies such as pneumonia, COPD, reactive airway disease, metabolic abnormalities, CHF, cardiac ischemia, pulmonary embolism, pneumothorax, musculoskeletal, infections, as well as others were entertained. Mr. Greer is a 76 year old gentleman with a history of DM2, asthma, COPD, atrial tachyarrhythmias s/p pacemaker who was brought in by ambulance with breathing difficulties and AMS. He was diagnosed from [facility] yesterday in stable condition, with a diagnosis of influenza and elevated troponin felt to be due to a supply/demand mismatch. His troponin level today was 0.09, decreased from 0.259 on his last admission. His chest x-ray did not show any new infectious process. His BNP was 3394, decreased from his previous admission. His oxygen saturations were 99% on 2L of oxygen (his prescribed home dose of oxygen). His family felt that he was at baseline, and that this event was likely situational given his home oxygen had not been arranged and he had skipped 3 meals, leading to his hypoglycemia and altered mental status. His sugar on recheck was 156. Mr. Greer was agreeable to discharge and will go home with his daughter so she can care for him. Impression Primary Impression: Hypoglycemia Additional Impression: Shortness of breath Departure Information Dispostion Home / Self-Care Referrals Maegan Delgado M.D. (PCP) Patient Instructions My [facility] Additional Instructions You came to [facility] due to difficulty breathing and a low sugar level. We checked some blood work, including kidney function, liver function, and also troponin, the enzyme that measures damage to your heart. This was all normal, and your troponin level had decreased from before. Your sugar levels normalized, and your chest x-ray did not show any new evidence of infection. We feel you are stable for discharge, now that your home oxygen has been organized. Please continue to take your regular home medications as prescribed, including the plavix. If you experience worsening shortness of breath, fever, chills, nausea or vomiting, please seek medical attention. Otherwise please follow up with your primary care doctor to ensure your symptoms are resolving. Resident Tracking Resident Involvement: Resident Care Provided Care Provided: Adult ED Problem Qualifiers
--- NOTE | 2017-03-25 14:55 | EMERGENCY ROOM VISIT NOTE ---
History Report prepared by Luís: Aydin Kaur Under the Supervision of: Dr. Danny Austin M.D. First contact with patient: 14:00 Chief Complaint: ILLNESS Stated Complaint: SOB/HYPOGLYCEMIA History of Present Illness The patient is a 76 year old white male with a past medical history of type 2 diabetes, hypertension, hyperlipidemia, asthma, CHF, and COPD who presents to the ED with a cc of shortness of breath beginning a couple of days ago. Positive altered mental status, a generalized feeling of "awful," a non- productive cough. Negative fevers, chills, recent falls, abdominal pain, back pain, or any other abnormal symptoms. The patient was discharged from this hospital yesterday after being diagnosed with influenza and an elevated troponin. He was discharged on 2L of oxygen, but they state it has not been working. When EMS arrived today, the patients family state he was mental altered. They took his blood sugar and it was 45, so they gave him dextrose. His sugar seng to 166. They state he had not eaten since yesterday because he "is unable to eat" secondary to his AMS. Source of History: patient, family, EMS Onset: a couple of days ago Position: other (Respiratory System) Symptom Intensity: moderate Quality: other (Shortness of breath) Timing: constant Associated Symptoms: No fevers, No chills, No abdominal pain, No back pain Note: The patient has a generalized feeling of "awful" with some altered mental status. Review of Systems See HPI for pertinent positives and negatives. A total of ten systems were reviewed and were otherwise negative. Past Medical & Surgical Medical Problems: (1) Asthma (2) Benign hypertension (3) Chronic congestive heart failure (4) Diabetes mellitus (5) Heart disease (6) NSTEMI, initial episode of care Family History Hypertension Social History Smoking Status: Never Smoker Alcohol Use: none Drug Use: none Marital Status: Housing Status: lives with significant other Occupation Status: employed Current/Historical Medications Scheduled Budesonide/Formoterol Fumarate (Symbicort 80/4.5 Inhaler), 2 PUFFS INH BID Bupropion Hcl (Wellbutrin Xl), 150 MG PO DAILY Clopidogrel Bisulfate (Clopidogrel), 75 MG PO QAM Fenofibrate (Tricor ), 145 MG PO HS Finasteride (Proscar), 5 MG PO QAM Furosemide (Lasix), 40 MG PO QAM Home O2 Therapy (Oxygen), 2 LITERS NA CONTINOUS Hydrocortisone (Cortef), 10 MG PO QPM Hydrocortisone (Cortef), 20 MG PO QAM Insulin Glargine (Lantus), 55 UNITS SC BID Levothyroxine Sodium (Levothyroxine Sodium), 75 MCG PO QAM Metoprolol Succinate (Toprol Xl), 25 MG PO DAILY Oseltamivir Phosphate (Tamiflu), 75 MG PO BID Potassium Ext Rel (Klor-Con), 20 MEQ PO DAILY Pravastatin Sodium (Pravastatin Sodium), 1 TAB PO QPM Zafirlukast (Zafirlukast), 20 MG PO BID Scheduled PRN Albuterol Hfa (Ventolin Hfa), 2 PUFFS INH QID PRN for Shortness of Breath Allergies Coded Allergies: Aspirin (Verified Allergy, Unknown, DOES NOT TAKE D/T ASTHMA, 03/21/17) Physical Exam Vital Signs Date Time Temp Pulse Resp B/P (MAP) Pulse Ox O2 Delivery O2 Flow Rate FiO2 03/25/17 17:16 73 22 153/68 100 Nasal Cannula 2.0 03/25/17 15:39 96 22 149/92 99 Nasal Cannula 2.0 03/25/17 14:59 100 16 139/66 96 Room Air 03/25/17 14:35 96 Room Air 03/25/17 14:17 36.8 95 22 153/80 96 Room Air 03/25/17 14:11 97 Physical Exam GENERAL: Awake, alert, well-appearing, NAD HENT: Normocephalic, atraumatic. Exotropic left eye. EYES: Normal conjunctiva. Sclera non-icteric. NECK: Supple. No nuchal rigidity. FROM. RESPIRATORY: Coarse rales throughout, no wheezing or crackles CARDIAC: RRR, no MRG ABDOMEN: Soft, NTND, BS+ MSK: No chest wall TTP,device in left chest, no LE edema, no calf pain NEURO: GCS 15, CN 2-12 intact, moves all 4s on command SKIN: No rash or jaundice noted. Medical Decision & Procedures ER Provider Diagnostic Interpretation: Radiology results as stated below per my review and radiologist interpretation: CHEST ONE VIEW PORTABLE CLINICAL HISTORY: 76 years-old Male presenting with EVALUATE RESPIRATORY DISTRESS.DYSPNEA. TECHNIQUE: Portable upright AP view of the chest was obtained. COMPARISON: 03/22/2017. FINDINGS: Left subclavian pacer with leads to the right atrium and right ventricular apex. Atherosclerosis of aortic arch. Cardiac silhouette moderately enlarged, unchanged. Minimal linear opacities at the lung bases. No new focal infiltrate. No large pleural effusion or pneumothorax. Degenerative changes of the thoracic spine. IMPRESSION: 1. Minimal bibasilar atelectasis. No convincing evidence of acute cardiopulmonary disease. 2. Cardiomegaly. Electronically signed by: Hong Alvarez M.D. 03/25/2017 3:40 PM Dictated Date/Time: 03/25/2017 3:39 PM Laboratory Results 03/25/17 14:45 Red Blood Count 5.07, Mean Corpuscular Volume 88.6, Mean Corpuscular Hemoglobin 29.0, Mean Corpuscular Hemoglobin Concent 32.7, Mean Platelet Volume 9.9, Neutrophils (%) (Auto) 80.1, Lymphocytes (%) (Auto) 9.2, Monocytes (%) (Auto) 8.5, Eosinophils (%) (Auto) 0.2, Basophils (%) (Auto) 0.2, Neutrophils # (Auto) 8.86, Lymphocytes # (Auto) 1.02, Monocytes # (Auto) 0.94, Eosinophils # (Auto) 0.02, Basophils # (Auto) 0.02 03/25/17 14:45 Test 03/25/17 14:45 03/25/17 16:20 White Blood Count 11.06 K/uL (4.8-10.8) Red Blood Count 5.07 M/uL (4.7-6.1) Hemoglobin 14.7 g/dL (14.0-18.0) Hematocrit 44.9 % (42-52) Mean Corpuscular Volume 88.6 fL (80-100) Mean Corpuscular Hemoglobin 29.0 pg (25-34) Mean Corpuscular Hemoglobin Concent 32.7 g/dl (32-36) Platelet Count 186 K/uL (130-400) Mean Platelet Volume 9.9 fL (7.4-10.4) Neutrophils (%) (Auto) 80.1 % Lymphocytes (%) (Auto) 9.2 % Monocytes (%) (Auto) 8.5 % Eosinophils (%) (Auto) 0.2 % Basophils (%) (Auto) 0.2 % Neutrophils # (Auto) 8.86 K/uL (1.4-6.5) Lymphocytes # (Auto) 1.02 K/uL (1.2-3.4) Monocytes # (Auto) 0.94 K/uL (0.11-0.59) Eosinophils # (Auto) 0.02 K/uL (0-0.5) Basophils # (Auto) 0.02 K/uL (0-0.2) RDW Standard Deviation 54.9 fL (36.4-46.3) RDW Coefficient of Variation 17.0 % (11.5-14.5) Immature Granulocyte % (Auto) 1.8 % Immature Granulocyte # (Auto) 0.20 K/uL (0.00-0.02) Prothrombin Time 11.8 SECONDS (9.0-12.0) Prothromb Time International Ratio 1.1 (0.9-1.1) Activated Partial Thromboplast Time 28.5 SECONDS (21.0-31.0) Partial Thromboplastin Ratio 1.1 Anion Gap 7.0 mmol/L (3-11) Est Creatinine Clear Calc Drug Dose 51.9 ml/min Estimated GFR () 55.9 Estimated GFR (Non- 48.2 BUN/Creatinine Ratio 18.8 (10-20) Calcium Level 9.1 mg/dl (8.5-10.1) Total Bilirubin 0.9 mg/dl (0.2-1) Aspartate Amino Transf (AST/SGOT) 34 U/L (15-37) Alanine Aminotransferase (ALT/SGPT) 44 U/L (12-78) Alkaline Phosphatase 45 U/L (45-117) Troponin I 0.098 ng/ml (0-0.045) Pro-B-Type Natriuretic Peptide 3394 pg/ml (0-1800) Total Protein 7.6 gm/dl (6.4-8.2) Albumin 3.3 gm/dl (3.4-5.0) Globulin 4.3 gm/dl (2.5-4.0) Albumin/Globulin Ratio 0.8 (0.9-2) Urine Color DK YELLOW Urine Appearance CLEAR (CLEAR) Urine pH 5.5 (4.5-7.5) Urine Specific [place] 1.026 (1.000-1.030) Urine Protein NEG (NEG) Urine Glucose (UA) TRACE (NEG) Urine Ketones TRACE (NEG) Urine Occult Blood NEG (NEG) Urine Nitrite NEG (NEG) Urine Bilirubin NEG (NEG) Urine Urobilinogen NEG (NEG) Urine Leukocyte Esterase NEG (NEG) Laboratory results reviewed by me Medications Administered Medications (Trade) Dose Ordered Sig/Laila Route Start Time Stop Time Status Last Admin Dose Admin Clopidogrel Bisulfate (plAVix TAB) 75 mg NOW ONCE PO 03/25/17 16:15 03/25/17 16:16 DC 03/25/17 16:16 75 MG Metoprolol Succinate (Toprol Xl Tab) 25 mg NOW ONCE PO 03/25/17 16:30 03/25/17 16:31 DC 03/25/17 17:21 25 MG ECG Indication: SOB/dyspnea Rate (beats per minute): 99 Rhythm: other (Difficult to see if there are p-waves present) Findings: RBBB, left axis deviation, other (wide QRS) Comparison ECG Date: Mar 23, 2017 Change: no significant change Change: Repeat ECG: Sinus Tachycardia 103, questionable 1st degree AV block, left axis deviation, RBBB, inferior Q-waves, all old compared ED Course 1400: The patient was evaluated in room A12. A complete history and physical exam was performed. 1700: I reevaluated the patient. Discussed results and discharge instructions: He verbalized understanding and agreement. The patient is ready for discharge. Medical Decision The patient is a 76 year old white male with a past medical history of type 2 diabetes, hypertension, hyperlipidemia, asthma, CHF, and COPD who presents to the ED with a cc of shortness of breath beginning a couple of days ago. Positive altered mental status, a generalized feeling of "awful," a non- productive cough. Negative fevers, chills, recent falls, abdominal pain, back pain, or any other abnormal symptoms. Differential diagnosis: Etiologies such as infections, reactive airway disease, pneumonia, pneumothorax , COPD, CHF, cardiac ischemia, pulmonary embolism, musculoskeletal, gastrointestinal, as well as others were entertained. Patient was seen and evaluated the bedside. Patient did have a recent admission for an NSTEMI. Patient was brought in as the patient has not been eating no recent changes in insulin but noted to have a blood sugar approximately 30. Upon presentation the patient does complain of some shortness of breath which she says is chronic and fairly unchanged from prior. Patient does not have any lower extremity swelling. Patient did have blood work , EKG, troponin, chest x-ray that were completed. Patient denied any infectious symptoms. Patient did have cough but it was not productive. Patient white blood cell count of 11 chest x-ray did not show any overt consolidation or infection. Less likely to be pneumonia. Patient does have a mildly enlarged heart but without any signs of volume overloaded. Patient does have a mildly elevated BNP 3000; however, the patient does not appear volume overloaded. Less likely acute CHF exacerbation. Of note patient was supposed to go home on 2 L nasal cannula but is having difficulty with the device. Home health did come out today and were able to resolve this issue. Patient is not hypoxic on exam. Patient does have mild intermittent tachycardia. Patient did have an EKG that was repeated which did show a left axis deviation and right bundle branch block which appear old. He did have a positive troponin; however , it is down trending from yesterday. Also of note, the patient did have some difficulty with obtaining his Plavix. I did speak with the pharmacist to confirm the prescription was sent and could be obtained this evening. Patient was given a first dose of Plavix. Given the patient's intermittent tachycardia patient was given his home dose of metoprolol. Tachycardia resolved. We did discuss the patient's care with the family member at bedside who would like the patient to go home with her. Patient family members concerned that the patient' s also has some health issues and may not be able to care for her father. Patient's repeat blood glucose was normal. Patient was told to continue his medications as well as the Plavix. Given the patient did have a recent NSTEMI without any chest pain w/ downtrending trop w/ shortness of breath which is chronic and not acutely worsening without any EKG changes, less likely ACS. Patient was deemed suitable for outpatient follow-up and treatment. Patient patient's family member were advised follow-up with her primary care physician within the week. They were amenable to this plan of care and was given strict follow-up and return precautions.Patient was given strict follow-up, discharge, and return precautions. All questions were answered. Patient was deemed suitable for outpatient follow-up at this time. Patient agreed with the plan of care and was safely discharged home. Medication Reconcilliation Current Medication List: was personally reviewed by me Blood Pressure Screening Patient's blood pressure: Elevated blood pressure Blood pressure disposition: Elevated BP felt to be situational Impression Primary Impression: Elevated troponin Additional Impressions: SOB (shortness of breath) Hypokalemia Scribe Attestation The scribe's documentation has been prepared under my direction and personally reviewed by me in its entirety. I confirm that the note above accurately reflects all work, treatment, procedures, and medical decision making performed by me. Departure Information Dispostion Home / Self-Care Referrals Maegan Delgado M.D. (PCP) Forms HOME CARE DOCUMENTATION FORM, IMPORTANT VISIT INFORMATION, WORK / SCHOOL INSTRUCTIONS Patient Instructions My [facility] Additional Instructions You came to [facility] due to difficulty breathing and a low sugar level. We checked some blood work, including kidney function, liver function, and also troponin, the enzyme that measures damage to your heart. This was all normal, and your troponin level had decreased from before. Your sugar levels normalized, and your chest x-ray did not show any new evidence of infection. We feel you are stable for discharge, now that your home oxygen has been organized. Please continue to take your regular home medications as prescribed, including the plavix. If you experience worsening shortness of breath, fever, chills, nausea or vomiting, please seek medical attention. Otherwise please follow up with your primary care doctor to ensure your symptoms are resolving. Problem Qualifiers
[2017-03-25 14:58] LABS: BASO % 0.2 %; BASO ABS # 0.02 K/uL (0-0.2); EOS % 0.2 %; EOS ABS # 0.02 K/uL (0-0.5); HEMATOCRIT 44.9 % (42-52); HEMOGLOBIN 14.7 g/dL (14.0-18.0); LYMPH % 9.2 %; LYMPH ABS # 1.02 K/uL (1.2-3.4); MEAN CELL VOLUME 88.6 fL (80-100); MEAN CORPUSCULAR HGB CONC 32.7 g/dl (32-36); MEAN PLATELET VOLUME 9.9 fL (7.4-10.4); MONO % 8.5 %; MONO ABS # 0.94 K/uL (0.11-0.59); NEUT % 80.1 %; NEUT ABS # 8.86 K/uL (1.4-6.5); PLATELET COUNT 186 K/uL (130-400); RED CELL DISTRIBUTION WIDTH SD 54.9 fL (36.4-46.3); WHITE BLOOD COUNT 11.06 K/uL (4.8-10.8)
[2017-03-25 15:15] LABS: INR 1.1 (0.9-1.1); PTT PATIENT 28.5 SECONDS (21.0-31.0)
--- NOTE | 2017-03-25 15:42 | DIAGNOSTIC IMAGING REPORT ---
CHEST ONE VIEW PORTABLE CLINICAL HISTORY: 76 years-old Male presenting with EVALUATE RESPIRATORY DISTRESS.DYSPNEA. TECHNIQUE: Portable upright AP view of the chest was obtained. COMPARISON: 03/22/2017. FINDINGS: Left subclavian pacer with leads to the right atrium and right ventricular apex. Atherosclerosis of aortic arch. Cardiac silhouette moderately enlarged, unchanged. Minimal linear opacities at the lung bases. No new focal infiltrate. No large pleural effusion or pneumothorax. Degenerative changes of the thoracic spine. IMPRESSION: 1. Minimal bibasilar atelectasis. No convincing evidence of acute cardiopulmonary disease. 2. Cardiomegaly. Electronically signed by: Hong Alvarez M.D. 03/25/2017 3:40 PM Dictated Date/Time: 03/25/2017 3:39 PM
[2017-03-25 15:54] LABS: ALBUMIN 3.3 gm/dl (3.4-5.0); CALCIUM 9.1 mg/dl (8.5-10.1); CREATININE 1.39 mg/dl (0.60-1.40); TOTAL PROTEIN 7.6 gm/dl (6.4-8.2)
[2017-03-25 15:55] LABS: POTASSIUM 3.3 mmol/L (3.5-5.1)
[2017-03-25] MEDS ORDERED: CLOPIDOGREL BISULFATE 75 MG TAB PO ONE (16:15)
[2017-03-25] MEDS ORDERED: METOPROLOL SUCC 25MG EXT REL TAB PO ONE (16:30)
[2017-03-25 17:16] VITALS: BP 153/68; PULSE 73; O2SAT 100
== END 2017-03-25 17:38 | disposition home or self-care (01) ==
LOC: EDBD 13:55 → C.EDA 13:56
DX: E11.649 Type 2 diabetes mellitus with hypoglycemia without coma (principal); R79.89 Other specified abnormal findings of blood chemistry; R06.02 Shortness of breath; E87.6 Hypokalemia; I11.0 Hypertensive heart disease with heart failure; J45.909 Unspecified asthma, uncomplicated; J44.9 Chronic obstructive pulmonary disease, unspecified; I25.2 Old myocardial infarction; E78.5 Hyperlipidemia, unspecified; I50.9 Heart failure, unspecified; Z99.81 Dependence on supplemental oxygen; Z82.49 Family history of ischemic heart disease and other diseases of the circulatory system; Z79.4 Long term (current) use of insulin; Z79.899 Other long term (current) drug therapy

== ENCOUNTER → 2017-06-23 | Outpatient (CLI) | payer OTHER ==
[~2017-06-23] MED LIST changes: -ACCL20 PO; -METO25TA3 PO; +METO25TA4 PO; +POTA-639 PO; -POTA20TA16 PO; +ZAFI1TAB11 PO
[2017-06-23 12:41] LABS: BASO % 0.3 %; BASO ABS # 0.04 K/uL (0-0.2); EOS ABS # 2.74 K/uL (0-0.5); HEMATOCRIT 41.9 % (42-52); HEMOGLOBIN 13.9 g/dL (14.0-18.0); IG# 0.12 K/uL (0.00-0.02); LYMPH ABS # 1.49 K/uL (1.2-3.4); MEAN CORPUSCULAR HEMOGLOBIN 28.5 pg (25-34); MEAN CORPUSCULAR HGB CONC 33.2 g/dl (32-36); MEAN PLATELET VOLUME 11.9 fL (7.4-10.4); MONO % 6.8 %; MONO ABS # 0.78 K/uL (0.11-0.59); NEUT % 54.9 %; NEUT ABS # 6.27 K/uL (1.4-6.5); PLATELET COUNT 258 K/uL (130-400); RED CELL DISTRIBUTION WIDTH CV 15.9 % (11.5-14.5); RED CELL DISTRIBUTION WIDTH SD 49.9 fL (36.4-46.3); WHITE BLOOD COUNT 11.44 K/uL (4.8-10.8)
[2017-06-23 13:06] LABS: HEMOGLOBIN A1C 8.7 % (4.5-5.6)
[2017-06-23 16:41] LABS: ALBUMIN 3.1 gm/dl (3.4-5.0); ALT/SGPT 21 U/L (12-78); BLOOD UREA NITROGEN 12 mg/dl (7-18); CALCIUM 8.8 mg/dl (8.5-10.1); CARBON DIOXIDE 25 mmol/L (21-32); CREATININE 1.59 mg/dl (0.60-1.40); GLUCOSE 135 mg/dl (70-99); POTASSIUM 3.2 mmol/L (3.5-5.1); SODIUM 139 mmol/L (136-145)
[2017-06-23 16:52] LABS: ALKALINE PHOSPHATASE 77 U/L (45-117); AST/SGOT 17 U/L (15-37); TOTAL PROTEIN 6.8 gm/dl (6.4-8.2)
== END | disposition home or self-care (01) ==
LOC: C.LABBFT 11:05
PROVIDERS: ATTEND Internal Medicine
DX: R19.5 Other fecal abnormalities (principal); R39.9 Unspecified symptoms and signs involving the genitourinary system; E03.9 Hypothyroidism, unspecified; E11.65 Type 2 diabetes mellitus with hyperglycemia; R10.84 Generalized abdominal pain; M35.3 Polymyalgia rheumatica

== ENCOUNTER → 2017-07-13 | Outpatient (CLI) | payer OTHER ==
--- NOTE | 2017-07-13 12:23 | DIAGNOSTIC IMAGING REPORT ---
CHEST 2 VIEWS ROUTINE CLINICAL HISTORY: COUGH dyspnea COMPARISON STUDY: 03/25/2017 FINDINGS: Moderate stable cardia megaly. Permanent bipolar cardiac pacemaker. Mild chronic bibasilar interstitial change. Lungs otherwise appear clear. IMPRESSION: Chronic and postoperative change. No acute process. The above report was generated using voice recognition software. It may contain grammatical, syntax or spelling errors. Electronically signed by: Kelby Solomon M.D. 07/13/2017 12:22 PM Dictated Date/Time: 07/13/2017 12:21 PM
== END | disposition home or self-care (01) ==
LOC: C.RAD1850 12:02
PROVIDERS: ATTEND Internal Medicine
DX: R05 Cough (principal)

== ENCOUNTER → 2017-08-09 | Outpatient (CLI) | payer OTHER | END | disposition home or self-care (01) | LOC: C.LAB1850 13:45 | PROVIDERS: ATTEND Internal Medicine Rheumatology | DX: K21.9 Gastro-esophageal reflux disease without esophagitis (principal); M35.3 Polymyalgia rheumatica ==

== ENCOUNTER → 2017-10-20 | Outpatient (CLI) | payer OTHER | END | disposition home or self-care (01) | LOC: C.LAB1850 10:41 | PROVIDERS: ATTEND Internal Medicine Rheumatology | DX: K21.9 Gastro-esophageal reflux disease without esophagitis (principal); M35.3 Polymyalgia rheumatica; R70.0 Elevated erythrocyte sedimentation rate ==

== ENCOUNTER 2018-07-25 18:21 | Inpatient (IN) ==
--- OUTSIDE RECORDS SUMMARY | 2018-07-25 18:24 | External Medical Summary | Continuity of Care Document ---
:1940 Author Name Khloe Monson, Provider Address Unavailable Unavailable , Care Team Providers Name Role Phone Galdino Maryellen HILL Unavailable [email or web address] Radha Adler PA-C Unavailable [email or web address] Salma Ruiz [email or web address]. Unavailable [email or web address] Marv Benavides PA-C Unavailable [email or web address] Danny Monson Unavailable [email or web address] Margaret Haley M.D. 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 (250.60) (E11.42) Depression with anxiety (300.4) (F41.8) Syncope and collapse (780.2) (R55) Sick sinus syndrome (427.81) (I49.5) Paroxysmal atrial tachycardia (427.0) (I47.1) Gastroesophageal reflux disease without esophagitis (530.81) (K21.9) Elevated sedimentation rate (790.1) (R70.0) Chronic renal insufficiency (585.9) (N18.9) Tena's thyroiditis (245.2) (E06.3) Dyslipidemia (272.4) (E78.5) Nausea (787.02) (R11.0) Pulmonary nodule (793.11) (R91.1) CAD (coronary artery disease) (414.00) (I25.10) Snoring (786.09) (R06.83) Insomnia (780.52) (G47.00) Hypoxia (799.02) (R09.02) Diverticulosis of colon (562.10) (K57.30) Neck pain (723.1) (M54.2) Vasculitis (447.6) (I77.6) Night sweats (780.8) (R61) AF (paroxysmal atrial fibrillation) (427.31) (I48.0) 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) Benign prostatic hypertrophy with urinary obstruction (600.0 1) (N40.1) Polymyalgia rheumatica (725) (M35.3) Nasal polyps (471.9) (J33.9) 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.909) Cardiac pacemaker (V45.01) (Z95.0) Diabetes mellitus type 2, uncontrolled (250.02) (E11.65) Diarrhea, unspecified type (787.91) (R19.7) Diabetic nephropathy associated with type 2 diabetes m ellitus (250.40) (E11.21) Vitamin D deficiency (268.9) (E55.9) Hypertension (401.9) (I10) Hypothyroidism (244.9) (E03.9) 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 Iona Delgado Start: 10-Aug-2013 Quantity: 90 Refills: 3 buPROPion HCl ER (XL) 150 MG Oral Tablet Extended Release 24 Hour; TAKE 1 TABLET BY MOUTH IN THE MORNING Iona Delgado Start: 14-Jun-2018 Quantity: 30 Refills: 3 Hydrocortisone 20 MG Oral Tablet; TAKE ONE TABLET BY M OUTH IN THE MORNING Iona Delgado Start: 03-Jan-2013 Quantity: 30 Refills: 5 Escitalopram Oxalate 10 MG Oral Tablet; START 1/2 TABLET BY MOUTH DAILY FOR ONE WEEK, THEN INCREASE TO 1 TABLET BY MOUTH DAILY DONNY Benavides Start: 07-Dec-2017 Quantity: 30 Refills: 2 Pravastatin Sodium 40 MG Oral Tablet; TAKE 1 TABLET BY MOUTH AT BEDTIME Iona Delgado Start: 11-Apr-2018 Quantity: 90 Refills: 3 Zafirlukast 20 MG Oral Tablet; TAKE 1 TABLET BY MOUTH TWICE DAILY Iona Ruiz Start: 11-Apr-2018 Quantity: 180 Refills: 3 NovoLOG Mix 70/30 FlexPen (70-30) 100 UN IT/ML Subcutaneous Suspension Pen- injector; INJECT 40 UNIT Twice daily GaldinoSERGIO Start: Quantity: 5 5 x 3 ML Pen Refills: 3 Levothyroxine Sodium 75 MCG Oral Tablet; TAKE ONE TABL ET BY MOUTH ONCE DAILY Iona Delgado Start: 27-May-2014 Quantity: 90 Refills: 3 Hydrocortisone 10 MG Oral Tablet; TAKE O NE TABLET BY MOUTH ONCE DAILY IN THE EVENING Iona Delgado Start: 02-Feb-2018 Quantity: 30 Refills: 3 BD Pen Needle Mary U/F 32G X 4 MM; Use twice daily wit h insulin Iona Delgado Start: 12-May-2012 Quantity: 2 100 Unit Box Refills: 3 OneTouch Ultra Blue In Vitro Strip; USE FOUR TIMES CHER LY OR DIRECTED Iona Delgado Start: 02-May-2012 Quantity: 2 100 Strip Box Refills: 11 Vitamin D (Ergocalciferol) 51968 UNIT Or al Capsule; 1 capsule PO weekly for the next 12 weeks Iona Delgado Start: 28-Feb-2017 Quantity: 12 Refills: 1 Finasteride 5 MG Oral Tablet; TAKE ONE TABLET BY MOUTH ONCE DAILY Iona Delgado Start: 25-Apr-2018 Quantity: 30 Refills: 11 Metoprolol Succinate ER 25 MG Oral Table t Extended Release 24 Hour; TAKE ONE TABLET BY MOUTH DAILY DONNY Milligan Start: 03-Mar-2016 Quantity: 30 Refills: 11 Symbicort 160-4.5 MCG/ACT Inhalation Aer osol; INHALE 2 PUFFS TWICE DAILY. RINSE MOUTH AFTER USE. Iona Ruiz Start: 18-Nov-2016 Quantity: 1 10.2 GM Inhaler Refills: 5 Gabapentin 300 MG Oral Capsule; Take 1 capsule PO Daily Iona Hatfield Start: 11-Apr-2018 Quantity: 30 Refills: 5 Clopidogrel Bisulfate 75 MG Oral Tablet; TAKE 1 TABLET DAILY . Start: 25-Mar-2017 Refills: 0 30 Tablet Bottle Omeprazole 20 MG Oral Capsule Delayed Re lease; TAKE ONE CAPSULE BY MOUTH ONCE DAILY Iona Delgado Start: 25-Apr-2018 Quantity: 90 Refills: 3 Furosemide 40 MG Oral Tablet; TAKE 1/2 (ONE-HALF) TABL ET BY MOUTH ONCE DAILY Iona Delgado Start: 11-Apr-2018 Quantity: 45 Refills: 1 Ventolin HFA 108 (90 Base) MCG/ACT Inhal ation Aerosol Solution; INHALE 2 PUFFS EVERY 4 HOURS NEEDED Iona Delgado 18 GM Inhaler Quantity: 1 Refills: 5 predniSONE 5 MG Oral Tablet; TAKE 1 TABLET DAILY DI RECTED. Iona Delgado Start: 10-Jul-2018 Quantity: 31 Refills: 0 predniSONE 1 MG Oral Tablet; TAKE 4 TABLETS DAILY. Iona Delgado Start: 10-Jul-2018 Quantity: 124 Refills: 0 Procedures Spirometry - Pre (15mins) Date: 04-Jul-2018 History of Sinus Surgery Status: Complet ed History of Cataract Surgery Status: Comp leted History of Pacemaker Permanent Status: C ompleted Placement History of temporal artery biopsy Status : Completed 06-Dec-2016 0:00 Immunizations Fluzone INJ On: 30-Nov-2010 12:42 Lot #: [id number], [employer] Influenza On: 04-Jan-2012 14:33 Lot #: [id number], [employer] Influenza On: 24-Jan-2013 14:28 Lot #: [id number], [employer] Pneumococcal polysaccharide vaccine, 23 valent On: 4 Influenza Comments:Declined 10/24/2013 Fluzone High-Dose Intramuscular Suspension On: 14-Dec-2013 1 4:08 Lot #: [id number], [employer] Fluzone High-Dose Intramuscular Suspension On: 18-Dec-2014 1 3:34 Lot #: [id number], [employer] PA[employer]UR Prevnar 13 Intramuscular Suspension On: 18-Dec-2014 13:35 Lot #: [id number], [place] Fluzone High-Dose Intramuscular Suspension On: Nov-2016 Fluzone High-Dose 0.5 ML Intramuscular Suspension Pref illed Syringe On: 24-Feb-2018 11:43 Lot #: [id number], [employer] Family History Father Family history of Asthma (V17.5) Status: Active Family history of hypertension (V17.49) (Z82.49) Status: Act sheryl Mother Family history of Mother At Age ___ Status: Active Family history of Father At Age ___ Status: Active Social History - Smoking Status Never smoker Plan of Treatment Planned Encounters Appointment; Karl Haley M.D. Start: 01-Jan-2019 10:4 5 Request Planned Observations Planned Goals not documented Results No Known Results Results not documented Vital Signs 04-Jul-2018 9:16 Systolic 140 mm[Hg] Diastolic 72 mm[Hg] O2 Saturation 98 % Comments: Source: Heart Rate 97 /min 04-Jul-2018 9:03 Weight 224.7 lb BMI Calculated 33.18 kg/m2 BSA Calculated 2.17 m2 Height 69 in Encounters Appointment; Jack Ruiz M.D. 04-Jul-2018 9:15 Encounter Diagnosis: Problem not documented Appointment; Pulmonary, Funct Testing 04-Jul-2018 9:00 Encounter Diagnosis: Problem not documented Appointment; Karl Haley M.D. 14-Jun-2018 12:15 Encounter Diagnosis: Problem not documented Appointment; Maegan Delgado M.D. 31-May-2018 11:00 Encounter Diagnosis: Problem not documented Appointment; Maegan Delgado M.D. 19-May-2018 14:00 Encounter Diagnosis: Problem not documented Appointment; Maryellen Rodriguez M.D. 07-Mar-2018 14:00 Encounter Diagnosis: Problem not documented Appointment; Maegan Delgado M.D. 24-Feb-2018 11:00 Encounter Diagnosis: Problem not documented Appointment; Maryellen Rodriguez M.D. 21-Feb-2018 11:20 Encounter Diagnosis: Problem not documented Appointment; Tiana Liao PA-C 15-Feb-2018 10:30 Encounter Diagnosis: Problem not documented Appointment; Jack Ruiz M.D. 28-Dec-2017 14:30 Encounter Diagnosis: Problem not documented Appointment; Pulmonary, Funct Testing 28-Dec-2017 14:15 Encounter Diagnosis: Problem not documented Appointment; Maegan Delgado M.D. 25-Nov-2017 13:00 Encounter Diagnosis: Problem not documented Appointment; Maryellen Rodriguez M.D. 25-Nov-2017 11:40 Encounter Diagnosis: Problem not documented Appointment; Maegan Delgado M.D. 01-Nov-2017 11:30 Encounter Diagnosis: Problem not documented Appointment; Karl Haley M.D. 24-Oct-2017 11:30 Encounter Diagnosis: Problem not documented Appointment; Maryellen Rodriguez M.D. 20-Oct-2017 10:40 Encounter Diagnosis: Problem not documented Appointment; Maegan Delgado M.D. 27-Sep-2017 11:00 Encounter Diagnosis: Problem not documented Appointment; Maryellen Rodriguez M.D. 13-Sep-2017 13:00 Encounter Diagnosis: Problem not documented Appointment; Wellness, Nurse 31-Aug-2017 13:00 Encounter Diagnosis: Problem not documented Appointment; Maegan Delgado M.D. 16-Aug-2017 15:00 Encounter Diagnosis: Problem not documented Appointment; Maryellen Rodriguez M.D. 09-Aug-2017 13:00 Encounter Diagnosis: Problem not documented Appointment; Maryellen Rodriguez M.D. 26-Jul-2017 11:00 Encounter Diagnosis: Problem not documented Appointment; Maegan Delgado M.D. 21-Jun-2017 17:00 Encounter Diagnosis: Problem not documented Appointment; Ada Liao CRNP 15-Jun-2017 15:30 Encounter Diagnosis: Problem not documented Appointment; Maryellen Rodriguez M.D. 24-May-2017 15:20 Encounter Diagnosis: Problem not documented Appointment; Maegan Delgado M.D. 19-Apr-2017 14:30 Encounter Diagnosis: Problem not documented Appointment; Karl Haley M.D. 18-Apr-2017 12:00 Encounter Diagnosis: Problem not documented Appointment; Jack Ruiz M.D. 18-Apr-2017 10:45 Encounter Diagnosis: Problem not documented Appointment; Pulmonary, Funct Testing 18-Apr-2017 10:30 Encounter Diagnosis: Problem not documented Appointment; Maegan Delgado M.D. 29-Mar-2017 14:00 Encounter Diagnosis: Problem not documented Appointment; Maegan Delgado M.D. 16-Mar-2017 12:30 Encounter Diagnosis: Problem not documented Appointment; Hilary Polk R.D. 04-Mar-2017 10:00 Encounter Diagnosis: Problem not documented Appointment; Domingo Lambert M.D. 25-Feb-2017 10:00 Encounter Diagnosis: Problem not documented Appointment; Hilary Polk R.D. 21-Feb-2017 15:30 Encounter Diagnosis: Problem not documented Appointment; Maryellen Rodriguez M.D. 16-Feb-2017 13:20 Encounter Diagnosis: Problem not documented Appointment; Maryellen Rodriguez M.D. 12-Jan-2017 15:00 Encounter Diagnosis: Problem not documented Appointment; Jack Ruiz M.D. 15-Dec-2016 13:30 Encounter Diagnosis: Problem not documented Appointment; Pulmonary, Funct Testing 15-Dec-2016 13:15 Encounter Diagnosis: Problem not documented Appointment; Maryellen Rodriguez M.D. 08-Dec-2016 11:20 Encounter Diagnosis: Problem not documented Appointment; Guanakito Sommers M.D. 06-Dec-2016 11:30 Encounter Diagnosis: Problem not documented Appointment; Domingo Lambert M.D. 03-Dec-2016 13:30 Encounter Diagnosis: Problem not documented Appointment; Guanakito Sommers M.D. 03-Dec-2016 9:00 Encounter Diagnosis: Problem not documented Appointment; Maryellen Rodriguez M.D. 02-Dec-2016 15:40 Encounter Diagnosis: Problem not documented Appointment; Tiana Liao PA-C 18-Nov-2016 11:00 Encounter Diagnosis: Problem not documented Appointment; Maegan Delgado M.D. 02-Nov-2016 14:00 Encounter Diagnosis: Problem not documented Appointment; Karl Haley M.D. 12-Oct-2016 10:00 Encounter Diagnosis: Problem not documented Appointment; Maegan Delgado M.D. 01-Oct-2016 13:30 Encounter Diagnosis: Problem not documented Appointment; Jack Ruiz M.D. 08-Sep-2016 10:30 Encounter Diagnosis: Problem not documented Appointment; Pulmonary, Funct Testing 08-Sep-2016 10:00 Encounter Diagnosis: Problem not documented Appointment; Maegan Delgado M.D. 13-Aug-2016 13:30 Encounter Diagnosis: Problem not documented Appointment; Maegan Delgado M.D. 03-Aug-2016 9:30 Encounter Diagnosis: Problem not documented Appointment; Karl Haley M.D. 01-Jan-2019 10:45 Encounter Diagnosis: Problem not documented
[2018-07-25] MEDS ORDERED: ALBUT/IPRATROP 3MG/0.5MG NEB 3 ML VIAL NEB STA (18:35)
[2018-07-25] MEDS ORDERED: predniSONE 50 MG TAB PO STA (18:37)
[2018-07-25 18:58] LABS: Basophils # (auto) 0.02 K/uL (0-0.2); Basophils % (auto) 0.1 %; Eosinophils # (auto) 0.16 K/uL (0-0.5); Eosinophils % (auto) 1.1 %; Hematocrit (blood only) 45.7 % (42-52); Hemoglobin 15.3 g/dL (14.0-18.0); Immature Granulocytes # (auto) 0.12 K/uL (0.00-0.02); Immature Granulocytes % (auto) 0.8 %; Lymphocytes # (auto) 1.52 K/uL (1.2-3.4); Lymphocytes % (auto) 10.1 %; Mean Corpuscular Hgb Conc 33.5 g/dL (32-36); Mean Corpuscular Volume 86.1 fL (80-100); Mean Platelet Volume 10.3 fL (7.4-10.4); Monocytes # (auto) 1.26 K/uL (0.11-0.59); Monocytes % (auto) 8.3 %; Neutrophils # (auto) 12.03 K/uL (1.4-6.5); Neutrophils % (auto) 79.6 %; Platelet Count 267 K/uL (130-400); RDW Coefficient of Variation 16.6 % (11.5-14.5); RDW Standard Deviation 52.3 fL (36.4-46.3); Red Blood Count 5.31 M/uL (4.7-6.1); White Blood Count 15.11 K/uL (4.8-10.8)
[2018-07-25 19:05] LABS: HCO3 VBG 27 mmol/L; PCO2 VBG 48 mmHg (38-50); PO2 VBG 20 mmHg; pH VBG 7.37 (7.36-7.41)
[2018-07-25 19:06] LABS: Oxygen Saturation VBG < 60.0 %
[2018-07-25 19:16] LABS: Albumin Level 3.4 gm/dl (3.4-5.0); BUN Creatinine Ratio 9.7 (10-20); Bilirubin Direct 0.2 mg/dl (0-0.2); Calcium 8.8 mg/dl (8.5-10.1); Creatinine Clr Calc Pharmacy 45.9 ml/min; Est GFR (African American) 51.1; Est GFR (Non-African American) 44.1; Potassium 3.6 mmol/L (3.5-5.1)
[2018-07-25 19:24] LABS: Bilirubin,Total 0.8 mg/dl (0.2-1); Troponin I 0.101 ng/ml (0-0.045)
--- NOTE | 2018-07-25 19:25 | XRay Report ---
XR chest 1V portable HISTORY: 78 years-old Male fever cough sob ro pna acute fever with cough and shortness of breath COMPARISON: Chest radiograph 01/30/2018 and 07/13/2017 TECHNIQUE: Portable AP view of the chest FINDINGS: Cardiac silhouette is enlarged, unchanged. Stable positioning of left subclavian pacer. Mild intersti tial coarsening of the mid and lower lung zones is unchanged. Calcification of the thoracic aortic ar ch. Mild chronic blunting about the costophrenic angles. No pneumothorax, large pleural effusion or o vert pulmonary edema. Mild patchy right perihilar alveolar opacities are new from comparison. IMPRESSION: 1. Mild patchy right perihilar opacities are suspicious for pneumonitis in the appropriate clinical s etting. 2. Blunting of the costophrenic angles suggests trace effusions and/or mild atelectasis. 3. Cardiomegaly without overt pulmonary edema. The above report was generated using voice recognition software. It may contain grammatical, syntax o r spelling errors. Electronically signed by: Obey Emerson M.D. 07/25/2018 7:24 PM
[2018-07-25 19:27] LABS: Influenza A virus by PCR Neg for Influ A (Neg); Influenza B virus by PCR Neg for Influ B (Neg)
[2018-07-25] MEDS ORDERED: cefTRIAXone SODIUM 1 GM ADDVIAL IV STA (19:46)
[2018-07-25] MEDS ORDERED: AZITHROMYCIN 250 MG TAB PO ONE (19:46)
[2018-07-25 19:58] LABS: Partial Thromboplastin Time 26.6 Seconds (21.0-31.0); Prothrombin Time 10.6 Seconds (9.0-12.0)
[2018-07-25] MEDS ORDERED: SODIUM CHLORIDE 0.9% 500 ML IV SCH (20:00)
[2018-07-25] MEDS ORDERED: cefTRIAXone SODIUM 1000MG/50ML D5W ONE (20:30)
--- NOTE | 2018-07-25 22:17 | Emergency Department Note ---
Entered by Darci Cordon acting as a scribe for Josué Torres History of Present Illness General Chief complaint: Fever Stated complaint: FEVER, SUGAR 168- DIABETIC Time Seen by Provider: 07/25/18 18:30 Source: patient History of Present Illness Onset (ago): day(s) (past couple) Location: head (global) and chest (lungs) Pain Consistency: + other (persistent) Quality: + other (subjective fevers and shortness of breath) Exacerbated By: + other (putting on his shirt) Associated symptoms: + other (body aches); no chest pain and no nausea/vomiting The patient is an 78 year old male who presents to the Emergency Room with complaints of subjective fevers and persistent shortness of breath for the past couple of days. The patient reports that he has not taken his temperature, al though he notes some body aches. He states that his shortness of breath was exacerbated today after putting on a shirt. He denies chest pain, nausea, vomiting, or diarrhea. Home Medications Home Medications Medication Instructions Recorded Confirmed Type albuterol sulfate [Ventolin HFA] 2 puff INHALATION QID PRN 01/30/18 07/25/18 History budesonide-formoterol [Symbicort] 2 puff INHALATION BID 01/30/18 07/25/18 History bupropion HCl 150 mg PO DAILY 01/30/18 07/25/18 History clopidogrel 75 mg PO QAM 01/30/18 07/25/18 History fenofibrate nanocrystallized 145 mg PO HS 01/30/18 07/25/18 History finasteride 5 mg PO QAM 01/30/18 07/25/18 History furosemide 20 mg PO QAM 01/30/18 07/25/18 History hydrocortisone 10 mg PO HS 01/30/18 07/25/18 History hydrocortisone 20 mg PO QAM 01/30/18 07/25/18 History insulin asp prt-insulin aspart 45 unit SUBCUT BID 01/30/18 07/25/18 History [Novolog Mix 70-30FlexPen U-100] levothyroxine 75 mcg PO QAM 01/30/18 07/25/18 History metoprolol succinate 25 mg PO QAM 01/30/18 07/25/18 History potassium chloride 20 meq PO QAM 01/30/18 07/25/18 History zafirlukast 20 mg PO BID 01/30/18 07/25/18 History escitalopram oxalate [Lexapro] 10 mg PO DAILY 07/25/18 07/25/18 History gabapentin [Neurontin] 300 mg PO DAILY 07/25/18 07/25/18 History omeprazole 20 mg PO DAILY 07/25/18 07/25/18 History pravastatin 40 mg PO HS 07/25/18 07/25/18 History prednisone 4 mg PO DAILY 07/25/18 07/25/18 History prednisone 5 mg PO DAILY 07/25/18 07/25/18 History Allergies Allergy/AdvReac Type Severity Reaction Status Date / Time aspirin Allergy Unknown DOES NOT Verified 01/30/18 17:54 TAKE D/T ASTHMA Past Med/Surg History Medical History Asthma (Chronic 07/01/12) NSTEMI, initial episode of care CHF (congestive heart failure) Diabetes Family History Other Family history non-contributory Social History Feels Safe at Home: Yes Smoking Status: Never smoker Review of Systems See HPI for pertinent positives & negatives. and A total of 10 systems reviewed and were otherwise negative Physical Exam Vital Signs Vital Signs - 24 hr 07/25/18 18:23 07/25/18 18:54 07/25/18 19:03 Temperature 36.8 C Temperature Source Oral Sepsis Recent Fever Within 48 Hours No Sepsis Action Taken by Nursing No Action Required Pulse Rate 72 Pulse Rate [Right Radial] 86 112 H Pulse Rate from SpO2 Sensor Pulse Rhythm Regular Pulse Strength Normal Respiratory Rate 20 16 27 H Respiratory Effort / Characteristics Non-Labored Spontaneous Non-Labored Spontaneous Respiratory Depth Normal Respiratory Pattern Regular Blood Pressure 159/70 H Blood Pressure [Right Arm] 121/71 Blood Pressure Mean 99 Blood Pressure Mean [Right Arm] 87 Blood Pressure Position Sitting Blood Pressure Position [Right Arm] Sitting Pulse Oximetry 97 97 96 Oxygen Delivery Method Room Air Room Air Room Air 07/25/18 19:31 07/25/18 20:01 07/25/18 20:31 Temperature Temperature Source Sepsis Recent Fever Within 48 Hours Sepsis Action Taken by Nursing Pulse Rate 116 H 105 H 100 H Pulse Rate [Right Radial] Pulse Rate from SpO2 Sensor 82 Pulse Rhythm Pulse Strength Respiratory Rate 19 36 H 35 H Respiratory Effort / Characteristics Respiratory Depth Respiratory Pattern Blood Pressure 133/68 100/56 L 146/62 H Blood Pressure [Right Arm] Blood Pressure Mean 89 70 90 Blood Pressure Mean [Right Arm] Blood Pressure Position Blood Pressure Position [Right Arm] Pulse Oximetry 92 93 94 Oxygen Delivery Method GENERAL: He is oriented to person, place, and time. He appears well-developed and well-nourished. He does not appear distressed. HENT: Exam performed. - Head: Normocephalic and atraumatic. - Right Ear: External ear normal. No mastoid tenderness. - Left Ear: External ear normal. No mastoid tenderness. - Mouth/Throat: The oropharynx is clear and moist. No trismus in the jaw. No dental abscesses or uvula swelling. No oropharyngeal exudate or tonsillar abscesses. EYES: Conjunctivae and EOM are normal. Pupils are equal, round, and reactive to light. Right eye exhibits no discharge. Left eye exhibits no discharge. No scl eral icterus. NECK: Normal range of motion. Neck supple. No JVD present. No spinous process tenderness present. No carotid bruit present. No rigidity. No tracheal deviation and normal range of motion present. No Brudzinski's sign and no Kernig's sign noted. CV: Normal rate, regular rhythm, normal heart sounds and intact distal pulses. There is no peripheral edema. Palpable radial pulses bue. PULM/CHEST: Tachypneic on examination with rhonchi and expiratory wheezes bilaterally. No stridor. He has no rales. - Chest Wall: He exhibits no tenderness. ABD: The abdomen is soft. Bowel sounds are normal. He has no distension. No mass is present. There is no tenderness. There is no rebound, no guarding, no Yates's sign and no tenderness at McBurney's point. Rovsig negative. MUSC/SKEL: Normal range of motion. There is no peripheral edema, tenderness or deformity. LYMPH: No cervical adenopathy. NEURO: He is alert and oriented to person, place, and time. He has normal strength. No cranial nerve deficit or sensory deficit. Coordination and gait normal. GCS eye subscore is 4. GCS verbal subscore is 5. GCS motor subscore is 6. Cerebellar tests wnl. SKIN: Skin is warm and dry. He is not diaphoretic. PSYCH: He has a normal mood and affect. Behavior is normal. Judgment and thought content normal. Course 1832: The patient was evaluated in room C6. A complete history and physical examination were performed. 1944: Repeat physical exam shows that the wheezing has improved. Labs show a leukocytosis of 15.11. VBG within normal limits. Creatinine is at baseline. Lactic acid is elevated at 2.5. Influenza screen was negative. Troponin was elevated at 0.101, which appears to be at baseline as the patients troponin at prior discharge was 0.098. proBNP is 5300. Chest x-ray showed mild patchy opacities suspicious for pneumonitis. Given the patients clinical history, physical examination, chest x-ray findings, and his elevated lactic acid and leukocytosis, he will be treated for pneumonia with azithromycin and rocephin started in the ER. I consulted Dr. Rangel [facility] Hospitalist's service, who will be evaluating the patient for hospitalization. Administered Medications Sodium Chloride (Nss) 500 mls @ 125 mls/hr IV .Q4H KATHLEEN Stop: 08/24/18 19:59 Last Admin: 07/25/18 20:36 Dose: 125 mls/hr Documented by: [id number] Discontinued Medications Albuterol (Duoneb) 3 ml NEB NOW STA Stop: 07/25/18 18:36 Last Admin: 07/25/18 18:47 Dose: 3 ml Documented by: [id number] Azithromycin (Zithromax) 500 mg PO NOW ONE Stop: 07/25/18 19:47 Last Admin: 07/25/18 20:33 Dose: 500 mg Documented by: [id number] Ceftriaxone Sodium (Rocephin) 1,000 mg IV NOW STA Stop: 07/25/18 19:47 Last Admin: 07/25/18 20:36 Dose: Not Given Documented by: [id number] Ceftriaxone Sodium (Rocephin) Confirm Administered Dose 1,000 mg .ROUTE .STK-MED ONE Stop: 07/25/18 20:31 Last Admin: 07/25/18 20:33 Dose: 1,000 mg Documented by: [id number] Prednisone (Prednisone) 50 mg PO NOW STA Stop: 07/25/18 18:38 Last Admin: 07/25/18 19:00 Dose: 50 mg Documented by: [id number] Medical Decision Making Medical Records Attestation: I reviewed the patient's medical records. Home Medications Current Medication List: was personally reviewed by me Laboratory Data Attestation: I reviewed the patient's lab results. Result diagrams: 07/25/18 18:45 07/25/18 18:45 Lab Results 07/25/18 07/25/18 07/25/18 Range/Units 18:45 18:45 18:45 WBC 15.11 H (4.8-10.8) K/uL RBC 5.31 (4.7-6.1) M/uL Hgb 15.3 (14.0-18.0) g/dL Hct 45.7 (42-52) % MCV 86.1 (80-100) fL MCH 28.8 (25-34) pg MCHC 33.5 (32-36) g/dL RDW Std Deviation 52.3 H (36.4-46.3) fL RDW Coeff of Andrew 16.6 H (11.5-14.5) % Plt Count 267 (130-400) K/uL MPV 10.3 (7.4-10.4) fL Immature Gran % (Auto) 0.8 % Neut % (Auto) 79.6 % Lymph % (Auto) 10.1 % Swain % (Auto) 8.3 % Eos % (Auto) 1.1 % Baso % (Auto) 0.1 % Immature Gran # (Auto) 0.12 H (0.00-0.02) K/uL Neut # (Auto) 12.03 H (1.4-6.5) K/uL Lymph # (Auto) 1.52 (1.2-3.4) K/uL Swain # (Auto) 1.26 H (0.11-0.59) K/uL Eos # (Auto) 0.16 (0-0.5) K/uL Baso # (Auto) 0.02 (0-0.2) K/uL PT Cancelled INR Cancelled APTT Cancelled PTT Ratio Cancelled VBG pH (7.36-7.41) VBG pCO2 (38-50) mmHg VBG pO2 mmHg VBG HCO3 mmol/L VBG O2 Saturation % VBG Base Excess mEq/L Barometric Pressure mm/Hg Sodium 137 (136-145) mmol/L Potassium 3.6 (3.5-5.1) mmol/L Chloride 105 (98-107) mmol/L Carbon Dioxide 26 (21-32) mmol/L Anion Gap 6.0 (3-11) BUN 14 (7-18) mg/dl Creatinine 1.48 H (0.6-1.4) mg/dl Est Cr Clr Drug Dosing 45.9 ml/min Est GFR ( Amer) 51.1 Est GFR (Non-Af Amer) 44.1 BUN/Creatinine Ratio 9.7 L (10-20) Glucose 165 H (70-99) mg/dl Lactate (0.4-2.0) mmol/L Calcium 8.8 (8.5-10.1) mg/dl Total Bilirubin 0.8 (0.2-1) mg/dl Direct Bilirubin 0.2 (0-0.2) mg/dl AST 12 L (15-37) U/L ALT 22 (12-78) U/L Alkaline Phosphatase 67 (45-117) U/L Troponin I 0.101 H* (0-0.045) ng/ml NT-Pro-B Natriuret Pep 5300 H (0-1800) pg/ml Total Protein 7.0 (6.4-8.2) gm/dl Albumin 3.4 (3.4-5.0) gm/dl Lipase 80 (73-393) U/L Influenza Type A (PCR) (Neg) Influenza Type B (PCR) (Neg) 07/25/18 07/25/18 07/25/18 Range/Units 18:45 18:45 18:45 WBC (4.8-10.8) K/uL RBC (4.7-6.1) M/uL Hgb (14.0-18.0) g/dL Hct (42-52) % MCV (80-100) fL MCH (25-34) pg MCHC (32-36) g/dL RDW Std Deviation (36.4-46.3) fL RDW Coeff of Andrew (11.5-14.5) % Plt Count (130-400) K/uL MPV (7.4-10.4) fL Immature Gran % (Auto) % Neut % (Auto) % Lymph % (Auto) % Swain % (Auto) % Eos % (Auto) % Baso % (Auto) % Immature Gran # (Auto) (0.00-0.02) K/uL Neut # (Auto) (1.4-6.5) K/uL Lymph # (Auto) (1.2-3.4) K/uL Swain # (Auto) (0.11-0.59) K/uL Eos # (Auto) (0-0.5) K/uL Baso # (Auto) (0-0.2) K/uL PT INR APTT PTT Ratio VBG pH 7.37 (7.36-7.41) VBG pCO2 48 (38-50) mmHg VBG pO2 20 mmHg VBG HCO3 27 mmol/L VBG O2 Saturation < 60.0 % VBG Base Excess 1.0 mEq/L Barometric Pressure 733.7 mm/Hg Sodium (136-145) mmol/L Potassium (3.5-5.1) mmol/L Chloride (98-107) mmol/L Carbon Dioxide (21-32) mmol/L Anion Gap (3-11) BUN (7-18) mg/dl Creatinine (0.6-1.4) mg/dl Est Cr Clr Drug Dosing ml/min Est GFR ( Amer) Est GFR (Non-Af Amer) BUN/Creatinine Ratio (10-20) Glucose (70-99) mg/dl Lactate 2.5 H* (0.4-2.0) mmol/L Calcium (8.5-10.1) mg/dl Total Bilirubin (0.2-1) mg/dl Direct Bilirubin (0-0.2) mg/dl AST (15-37) U/L ALT (12-78) U/L Alkaline Phosphatase (45-117) U/L Troponin I (0-0.045) ng/ml NT-Pro-B Natriuret Pep (0-1800) pg/ml Total Protein (6.4-8.2) gm/dl Albumin (3.4-5.0) gm/dl Lipase (73-393) U/L Influenza Type A (PCR) Neg for Influ A (Neg) Influenza Type B (PCR) Neg for Influ B (Neg) 07/25/18 Range/Units 19:29 WBC (4.8-10.8) K/uL RBC (4.7-6.1) M/uL Hgb (14.0-18.0) g/dL Hct (42-52) % MCV (80-100) fL MCH (25-34) pg MCHC (32-36) g/dL RDW Std Deviation (36.4-46.3) fL RDW Coeff of Andrew (11.5-14.5) % Plt Count (130-400) K/uL MPV (7.4-10.4) fL Immature Gran % (Auto) % Neut % (Auto) % Lymph % (Auto) % Swain % (Auto) % Eos % (Auto) % Baso % (Auto) % Immature Gran # (Auto) (0.00-0.02) K/uL Neut # (Auto) (1.4-6.5) K/uL Lymph # (Auto) (1.2-3.4) K/uL Swain # (Auto) (0.11-0.59) K/uL Eos # (Auto) (0-0.5) K/uL Baso # (Auto) (0-0.2) K/uL PT 10.6 INR 1.0 APTT 26.6 PTT Ratio 1.0 VBG pH (7.36-7.41) VBG pCO2 (38-50) mmHg VBG pO2 mmHg VBG HCO3 mmol/L VBG O2 Saturation % VBG Base Excess mEq/L Barometric Pressure mm/Hg Sodium (136-145) mmol/L Potassium (3.5-5.1) mmol/L Chloride (98-107) mmol/L Carbon Dioxide (21-32) mmol/L Anion Gap (3-11) BUN (7-18) mg/dl Creatinine (0.6-1.4) mg/dl Est Cr Clr Drug Dosing ml/min Est GFR ( Amer) Est GFR (Non-Af Amer) BUN/Creatinine Ratio (10-20) Glucose (70-99) mg/dl Lactate (0.4-2.0) mmol/L Calcium (8.5-10.1) mg/dl Total Bilirubin (0.2-1) mg/dl Direct Bilirubin (0-0.2) mg/dl AST (15-37) U/L ALT (12-78) U/L Alkaline Phosphatase (45-117) U/L Troponin I (0-0.045) ng/ml NT-Pro-B Natriuret Pep (0-1800) pg/ml Total Protein (6.4-8.2) gm/dl Albumin (3.4-5.0) gm/dl Lipase (73-393) U/L Influenza Type A (PCR) (Neg) Influenza Type B (PCR) (Neg) Imaging Data Radiologist's Impression: Radiology results as stated below per my review and the radiologist's interpretation: XR chest 1V portable HISTORY: 78 years-old Male fever cough sob ro pna acute fever with cough and shortness of breath COMPARISON: Chest radiograph 01/30/2018 and 07/13/2017 TECHNIQUE: Portable AP view of the chest FINDINGS: Cardiac silhouette is enlarged, unchanged. Stable positioning of left subclavian pacer. Mild interstitial coarsening of the mid and lower lung zones is unchanged. Calcification of the thoracic aortic arch. Mild chronic blunting about the costophrenic angles. No pneumothorax, large pleural effusion or overt pulmonary edema. Mild patchy right perihilar alveolar opacities are new from comparison. IMPRESSION: 1. Mild patchy right perihilar opacities are suspicious for pneumonitis in the appropriate clinical setting. 2. Blunting of the costophrenic angles suggests trace effusions and/or mild atelectasis. 3. Cardiomegaly without overt pulmonary edema. The above report was generated using voice recognition software. It may contain grammatical, syntax or spelling errors. Electronically signed by: Obey Emerson M.D. 07/25/2018 7:24 PM ECG Data Attestation: I personally reviewed and interpreted this ECG as follows: Indication: SOB/dyspnea Rate (beats per minute): 94 Rhythm: other (sinus arhythmia) Findings: + other (MD 202, QRS 152, QTc 500; LVH), + RBBB, + ST depression (leads I and aVL) and + ST elevation (mild in lead III) Comparison ECG Date: from (January 2018) Change: no significant change Blood Pressure Blood Pressure Findings: Elevated blood pressure Blood Pressure Disposition: further management by hospitalist ZACHERY Armenta Repeat physical exam shows that the wheezing has improved. Labs show a leukocytosis of 15.11. VBG within normal limits. Creatinine is at baseline. Lactic acid is elevated at 2.5. Influenza screen was negative. Troponin was elevated at 0.101, which appears to be at baseline as the patients troponin at prior discharge was 0.098. proBNP is 5300. Chest x-ray showed mild patchy opacities suspicious for pneumonitis. Given the patients clinical history, physical examination, chest x-ray findings, and his elevated lactic acid and leukocytosis, he will be treated for pneumonia with azithromycin and rocephin started in the ER. I consulted Dr. Rangel [facility] Hospitalist's service, who will be evaluating the patient for hospitalization. Impression & Plan Pneumonia Discharge Plan Visit Data Chief Complaint: Fever Stated Complaint: FEVER, SUGAR 168- DIABETIC ED Provider: Josué Torres Discharge Problem: Pneumonia Patient Disposition: Being Evaluated by Hospitalist Forms Stand Alone Forms: My [facility] Prescriptions Prescriptions: No Action furosemide 40 mg tablet 20 mg PO QAM RF: 0 clopidogrel 75 mg tablet 75 mg PO QAM RF: 0 levothyroxine 75 mcg tablet 75 mcg PO QAM RF: 0 potassium chloride 20 mEq tablet,ER particles/crystals 20 meq PO QAM RF: 0 hydrocortisone 20 mg tablet 20 mg PO QAM RF: 0 zafirlukast 20 mg tablet 20 mg PO BID RF: 0 metoprolol succinate 25 mg tablet extended release 24 hr 25 mg PO QAM RF: 0 hydrocortisone 10 mg tablet 10 mg PO HS RF: 0 albuterol sulfate [Ventolin HFA] 90 mcg/actuation HFA aerosol inhaler 2 puff Inhalation QID PRN (Reason: Shortness Of Breath Or Wheezing) RF: 0 finasteride 5 mg tablet 5 mg PO QAM RF: 0 Novolog Mix 70-30FlexPen U-100 100 unit/mL (70-30) insulin pen 45 unit subcut BID RF: 0 bupropion HCl 150 mg tablet extended release 24 hr 150 mg PO DAILY RF: 0 fenofibrate nanocrystallized 145 mg tablet 145 mg PO HS RF: 0 Symbicort 160-4.5 mcg/actuation HFA aerosol inhaler 2 puff Inhalation BID RF: 0 prednisone 5 mg tablet 5 mg PO DAILY RF: 0 prednisone 1 mg tablet 4 mg PO DAILY RF: 0 gabapentin [Neurontin] 300 mg capsule 300 mg PO DAILY RF: 0 escitalopram oxalate [Lexapro] 10 mg tablet 10 mg PO DAILY RF: 0 pravastatin 40 mg Tablet 40 mg PO HS RF: 0 omeprazole 20 mg Capsule,Delayed Release(Dr/Ec) 20 mg PO DAILY RF: 0 Referrals Referrals: Maegan Delgado MD [Primary Care Provider] - Discharge Problem: Pneumonia Qualifiers: Pneumonia type: due to unspecified organism Laterality: unspecified laterality Lung location: unspecified part of lung Qualified Code(s): J18.9 - Pneumonia, unspecified organism The scribe's documentation has been prepared under my direction and personally reviewed by me in its entirety. I confirm that the note above accurately reflects all work, treatment, procedures, and medical decision making performed by me.
--- NOTE | 2018-07-25 22:26 | History & Physical Report ---
Date of Service July 25, 2018 Assessment & Plan (1) SOB (shortness of breath): 78-year-old male was admitted on 25 Jul 2018 for fever and shortness of breath. Shortness of breath, CAP: Perhaps over the past couple of weeks, worse today with diaphoresis and subjective fever. Patient has underlying asthma and is on chronic prednisone. Suspect symptoms more related to CAP than CHF or an acute asthma exacerbation. - On arrival, afebrile, tachycardic, tachypneic, with SpO2 94% on room air. Negative for influenza A and B. WBC 15, lactate 2.5. VBG pH 7.37, CO2 48, bicarb 27. pCXR suggestive of right perihilar opacities as well as trace bilateral effusions. Blood cultures drawn. - In ED, given 500 mL NS bolus, DuoNeb, prednisone 50 mg p.o., azithromycin, and Rocephin. - Will recheck lactate. Continue scheduled duo nebs and [id number] daily prednisone. Continued his hydrocortisone. Continue coverage with ceftriaxone and doxycycline (given long QTc). Elevated creatinine, chronic renal insufficiency: Admit Cr 1.48 (comparison May Cr 1.16). Given some IVF. - Will recheck in the morning. Elevated troponin: Admit TnI 0.101 at 1845. Comparisons in Mar 2017 were between 0.3 and 0.09. BNP 5300. EKG was normal sinus rhythm 94, right bundle branch block, LVH repolarization. EKG looks roughly unchanged compared to 30Jan2018. - Will recheck TnI in the morning. Prolonged QTc: EKG notes QTc 500. We will try to avoid adding any QTc prolonging drugs. Ongoing medical issues: - Hypertension, hyperlipidemia, history of NSTEMI, sick sinus syndrome, paroxysmal Afib: Has permanent dual-chamber pacemaker. 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 Continue home Lasix. - Asthma: Continue home albuterol, Symbicort, zafirlukast, and scheduled prednisone. - Tena's thyroiditis: Continue home levothyroxine. - Adrenal insufficiency: Continued home hydrocortisone. - Diabetes, diabetic neuropathy: At home is on insulin aspart and Neurontin. --- We will place on insulin sliding scale here. - Depression, anxiety: Continue home bupropion Lexapro. - BPH: Continue home finasteride. - GERD: Continue home omeprazole. Code status: Discussed with the patient and his . He wishes to be DO NOT RESUSCITATE. Diet: Heart healthy, diabetes. DVT prophy: Lovenox. PT/OT: Deferred. Disbo: Admit to MedSurg. (2) Community acquired pneumonia: (3) Elevated serum creatinine: (4) Chronic renal insufficiency: (5) Prolonged Q-T interval on ECG: (6) Hypertension: (7) Hyperlipidemia: (8) History of non-ST elevation myocardial infarction (NSTEMI): (9) Sick sinus syndrome: (10) Paroxysmal A-fib: (11) Combined systolic and diastolic congestive heart failure: (12) Asthma: (13) Tena's thyroiditis: (14) Adrenal insufficiency: (15) Diabetes: (16) Diabetic neuropathy: (17) Depression: (18) Anxiety: (19) BPH (benign prostatic hyperplasia): (20) GERD (gastroesophageal reflux disease): History of Present Illness Primary Care Provider: Maegan Delgado MD 78-year-old male presents with his complaining of feeling "not too good" and "sicker than the [place]". He says for the past couple of weeks he is felt generally rundown. Today he says he broke out in a cold sweat and had a subjective fever. He denies any ongoing chest pain, shortness of breath, abdominal pain, nausea or vomiting, or other focal concerns. He says earlier today he had rare occasional sharp chest pain that lasted very briefly and self- resolved. He says that he slept a lot today, therefore he skipped his lunch, and at present he is hungry. --- Past medical history includes hypertension, hyperlipidemia, and STEMI, sick sinus syndrome, paroxysmal A. fib, combined systolic and diastolic CHF, asthma, Tena's thyroiditis, diabetes, diabetic neuropathy, depression, anxiety, BPH, GERD. --- Past surgical history includes cataract surgery, pacemaker placement, sinus surgery. --- Social history includes denying any prior tobacco use. Denies alcohol use. Lives at home with his . Allergies Allergy/AdvReac Type Severity Reaction Status Date / Time aspirin Allergy Unknown DOES NOT Verified 01/30/18 17:54 TAKE D/T ASTHMA Home Medications Home Medications Medication Instructions Recorded Confirmed Type albuterol sulfate [Ventolin HFA] 2 puff INHALATION QID PRN 01/30/18 07/25/18 History budesonide-formoterol [Symbicort] 2 puff INHALATION BID 01/30/18 07/25/18 History bupropion HCl 150 mg PO DAILY 01/30/18 07/25/18 History clopidogrel 75 mg PO QAM 01/30/18 07/25/18 History fenofibrate nanocrystallized 145 mg PO HS 01/30/18 07/25/18 History finasteride 5 mg PO QAM 01/30/18 07/25/18 History furosemide 20 mg PO QAM 01/30/18 07/25/18 History hydrocortisone 10 mg PO HS 01/30/18 07/25/18 History hydrocortisone 20 mg PO QAM 01/30/18 07/25/18 History insulin asp prt-insulin aspart 45 unit SUBCUT BID 01/30/18 07/25/18 History [Novolog Mix 70-30FlexPen U-100] levothyroxine 75 mcg PO QAM 01/30/18 07/25/18 History metoprolol succinate 25 mg PO QAM 01/30/18 07/25/18 History potassium chloride 20 meq PO QAM 01/30/18 07/25/18 History zafirlukast 20 mg PO BID 01/30/18 07/25/18 History escitalopram oxalate [Lexapro] 10 mg PO DAILY 07/25/18 07/25/18 History gabapentin [Neurontin] 300 mg PO DAILY 07/25/18 07/25/18 History omeprazole 20 mg PO DAILY 07/25/18 07/25/18 History pravastatin 40 mg PO HS 07/25/18 07/25/18 History prednisone 4 mg PO DAILY 07/25/18 07/25/18 History prednisone 5 mg PO DAILY 07/25/18 07/25/18 History Past Med/Surg History Medical History Asthma (Chronic 07/01/12) NSTEMI, initial episode of care CHF (congestive heart failure) Diabetes Family History Other Family history non-contributory Social History Preferred Language: Indonesian Communication Ability: Effective Insurance Licensing Supervisor Required: No Beliefs That Will Affect Care: None Current Living Situation: Spouse Other Information That Helps Us Care for You: No Feels Safe at Home: Yes Safety Concerns: Feels Safe At This Time Smoking Status: Never smoker Hx Alcohol Use: No Hx Substance Use: No Review of Systems Review of Systems: Constitutional: Positive subjective fever, diaphoresis. Eyes: Denies any visual loss or diplopia ENT: Denies any ear/nose/throat pain or difficulty speaking or swallowing Respiratory: Denies any dyspnea, cough, hemoptysis Cardiovascular: See HPI. Denies edema. Gastrointestinal: Denies any abdominal pain, nausea/vomiting/diarrhea Musculoskeletal: Denies any acute extremity pains, myalgias, or focal weakness Skin: Denies any known acute rashes or lesions Neuro: Denies any headache, acute focal weakness or numbness, or difficulties with speech or swallow. Psych: Ongoing depressive symptoms. Physical Exam Physical Exam: GENERAL: Awake, alert, well-appearing, in no acute distress. Mildly conversationally dyspneic. HENT: Normocephalic, atraumatic. Oropharynx unremarkable. EYES: Normal conjunctiva. Sclera non-icteric. NECK: Inspection normal. Supple and full ROM. No nuchal rigidity. CARDIAC: +S1S2 RRR, no murmurs. RESPIRATORY: Clear to auscultation. No wheezes or rales. Normal respiratory effort, though he does occasionally have bursts of tachypnea for about 5 seconds. No accessory muscle use. GI: +BS, soft, non-distended. Minimal tenderness in the left upper quadrant. No rebound or guarding. EXTREMITIES: No pedal edema or calf tenderness. Moving all extremities naturally and easily. NEURO: Positive mild numbness in his bilateral feet. Otherwise no gross neuro deficits. Results & Data Vital Signs (Past 12 Hours) Vital Signs Temp Pulse Pulse Resp BP BP Pulse Ox 07/25/18 20:31 100 H 35 H 146/62 H 94 07/25/18 20:01 105 H 36 H 100/56 L 93 07/25/18 19:31 116 H 19 133/68 92 07/25/18 19:03 112 H 27 H 121/71 96 07/25/18 18:54 86 16 97 07/25/18 18:23 36.8 C 72 20 159/70 H 97 Laboratory Results 07/25/18 07/25/18 07/25/18 Range/Units 19:29 18:45 18:45 WBC (4.8-10.8) K/uL RBC (4.7-6.1) M/uL Hgb (14.0-18.0) g/dL Hct (42-52) % MCV (80-100) fL MCH (25-34) pg MCHC (32-36) g/dL RDW Std Deviation (36.4-46.3) fL RDW Coeff of Andrew (11.5-14.5) % Plt Count (130-400) K/uL MPV (7.4-10.4) fL Immature Gran % (Auto) % Neut % (Auto) % Lymph % (Auto) % [place] % (Auto) % Eos % (Auto) % Baso % (Auto) % Immature Gran # (Auto) (0.00-0.02) K/uL Neut # (Auto) (1.4-6.5) K/uL Lymph # (Auto) (1.2-3.4) K/uL [place] # (Auto) (0.11-0.59) K/uL Eos # (Auto) (0-0.5) K/uL Baso # (Auto) (0-0.2) K/uL PT 10.6 INR 1.0 APTT 26.6 PTT Ratio 1.0 VBG pH 7.37 (7.36-7.41) VBG pCO2 48 (38-50) mmHg VBG pO2 20 mmHg VBG HCO3 27 mmol/L VBG O2 Saturation < 60.0 % VBG Base Excess 1.0 mEq/L Barometric Pressure 733.7 mm/Hg Sodium (136-145) mmol/L Potassium (3.5-5.1) mmol/L Chloride (98-107) mmol/L Carbon Dioxide (21-32) mmol/L Anion Gap (3-11) BUN (7-18) mg/dl Creatinine (0.6-1.4) mg/dl Est Cr Clr Drug Dosing ml/min Est GFR ( Amer) Est GFR (Non-Af Amer) BUN/Creatinine Ratio (10-20) Glucose (70-99) mg/dl Lactate (0.4-2.0) mmol/L Calcium (8.5-10.1) mg/dl Total Bilirubin (0.2-1) mg/dl Direct Bilirubin (0-0.2) mg/dl AST (15-37) U/L ALT (12-78) U/L Alkaline Phosphatase (45-117) U/L Troponin I (0-0.045) ng/ml NT-Pro-B Natriuret Pep (0-1800) pg/ml Total Protein (6.4-8.2) gm/dl Albumin (3.4-5.0) gm/dl Lipase (73-393) U/L Influenza Type A (PCR) Neg for Influ A (Neg) Influenza Type B (PCR) Neg for Influ B (Neg) 07/25/18 07/25/18 07/25/18 Range/Units 18:45 18:45 18:45 WBC (4.8-10.8) K/uL RBC (4.7-6.1) M/uL Hgb (14.0-18.0) g/dL Hct (42-52) % MCV (80-100) fL MCH (25-34) pg MCHC (32-36) g/dL RDW Std Deviation (36.4-46.3) fL RDW Coeff of Andrew (11.5-14.5) % Plt Count (130-400) K/uL MPV (7.4-10.4) fL Immature Gran % (Auto) % Neut % (Auto) % Lymph % (Auto) % [place] % (Auto) % Eos % (Auto) % Baso % (Auto) % Immature Gran # (Auto) (0.00-0.02) K/uL Neut # (Auto) (1.4-6.5) K/uL Lymph # (Auto) (1.2-3.4) K/uL [place] # (Auto) (0.11-0.59) K/uL Eos # (Auto) (0-0.5) K/uL Baso # (Auto) (0-0.2) K/uL PT Cancelled INR Cancelled APTT Cancelled PTT Ratio Cancelled VBG pH (7.36-7.41) VBG pCO2 (38-50) mmHg VBG pO2 mmHg VBG HCO3 mmol/L VBG O2 Saturation % VBG Base Excess mEq/L Barometric Pressure mm/Hg Sodium 137 (136-145) mmol/L Potassium 3.6 (3.5-5.1) mmol/L Chloride 105 (98-107) mmol/L Carbon Dioxide 26 (21-32) mmol/L Anion Gap 6.0 (3-11) BUN 14 (7-18) mg/dl Creatinine 1.48 H (0.6-1.4) mg/dl Est Cr Clr Drug Dosing 45.9 ml/min Est GFR ( Amer) 51.1 Est GFR (Non-Af Amer) 44.1 BUN/Creatinine Ratio 9.7 L (10-20) Glucose 165 H (70-99) mg/dl Lactate 2.5 H* (0.4-2.0) mmol/L Calcium 8.8 (8.5-10.1) mg/dl Total Bilirubin 0.8 (0.2-1) mg/dl Direct Bilirubin 0.2 (0-0.2) mg/dl AST 12 L (15-37) U/L ALT 22 (12-78) U/L Alkaline Phosphatase 67 (45-117) U/L Troponin I 0.101 H* (0-0.045) ng/ml NT-Pro-B Natriuret Pep 5300 H (0-1800) pg/ml Total Protein 7.0 (6.4-8.2) gm/dl Albumin 3.4 (3.4-5.0) gm/dl Lipase 80 (73-393) U/L Influenza Type A (PCR) (Neg) Influenza Type B (PCR) (Neg) 07/25/18 Range/Units 18:45 WBC 15.11 H (4.8-10.8) K/uL RBC 5.31 (4.7-6.1) M/uL Hgb 15.3 (14.0-18.0) g/dL Hct 45.7 (42-52) % MCV 86.1 (80-100) fL MCH 28.8 (25-34) pg MCHC 33.5 (32-36) g/dL RDW Std Deviation 52.3 H (36.4-46.3) fL RDW Coeff of Andrew 16.6 H (11.5-14.5) % Plt Count 267 (130-400) K/uL MPV 10.3 (7.4-10.4) fL Immature Gran % (Auto) 0.8 % Neut % (Auto) 79.6 % Lymph % (Auto) 10.1 % [place] % (Auto) 8.3 % Eos % (Auto) 1.1 % Baso % (Auto) 0.1 % Immature Gran # (Auto) 0.12 H (0.00-0.02) K/uL Neut # (Auto) 12.03 H (1.4-6.5) K/uL Lymph # (Auto) 1.52 (1.2-3.4) K/uL [place] # (Auto) 1.26 H (0.11-0.59) K/uL Eos # (Auto) 0.16 (0-0.5) K/uL Baso # (Auto) 0.02 (0-0.2) K/uL PT INR APTT PTT Ratio VBG pH (7.36-7.41) VBG pCO2 (38-50) mmHg VBG pO2 mmHg VBG HCO3 mmol/L VBG O2 Saturation % VBG Base Excess mEq/L Barometric Pressure mm/Hg Sodium (136-145) mmol/L Potassium (3.5-5.1) mmol/L Chloride (98-107) mmol/L Carbon Dioxide (21-32) mmol/L Anion Gap (3-11) BUN (7-18) mg/dl Creatinine (0.6-1.4) mg/dl Est Cr Clr Drug Dosing ml/min Est GFR ( Amer) Est GFR (Non-Af Amer) BUN/Creatinine Ratio (10-20) Glucose (70-99) mg/dl Lactate (0.4-2.0) mmol/L Calcium (8.5-10.1) mg/dl Total Bilirubin (0.2-1) mg/dl Direct Bilirubin (0-0.2) mg/dl AST (15-37) U/L ALT (12-78) U/L Alkaline Phosphatase (45-117) U/L Troponin I (0-0.045) ng/ml NT-Pro-B Natriuret Pep (0-1800) pg/ml Total Protein (6.4-8.2) gm/dl Albumin (3.4-5.0) gm/dl Lipase (73-393) U/L Influenza Type A (PCR) (Neg) Influenza Type B (PCR) (Neg) Medications Administered Sodium Chloride (Nss) 500 mls @ 125 mls/hr IV .Q4H KATHLEEN Stop: 08/24/18 19:59 Last Admin: 07/25/18 20:36 Dose: 125 mls/hr Documented by: [id number] Discontinued Medications Albuterol (Duoneb) 3 ml NEB NOW STA Stop: 07/25/18 18:36 Last Admin: 07/25/18 18:47 Dose: 3 ml Documented by: [id number] Azithromycin (Zithromax) 500 mg PO NOW ONE Stop: 07/25/18 19:47 Last Admin: 07/25/18 20:33 Dose: 500 mg Documented by: [id number] Ceftriaxone Sodium (Rocephin) 1,000 mg IV NOW STA Stop: 07/25/18 19:47 Last Admin: 07/25/18 20:36 Dose: Not Given Documented by: [id number] Ceftriaxone Sodium (Rocephin) Confirm Administered Dose 1,000 mg .ROUTE .STK-MED ONE Stop: 07/25/18 20:31 Last Admin: 07/25/18 20:33 Dose: 1,000 mg Documented by: [id number] Prednisone (Prednisone) 50 mg PO NOW STA Stop: 07/25/18 18:38 Last Admin: 07/25/18 19:00 Dose: 50 mg Documented by: [id number] Code Status & VTE Plan Code Status DNR VTE Prophylaxis Plan VTE Prophylaxis will be ordered: Yes Supervising Physician Co-Signing Physician Notes Patient seen and examined, chart reviewed, case discussed with Dr. Francis and I agree with his assessment and plan as documented above. Briefly, patient is an 78yo C male with multiple medical comorbidities presenting with general feeling unwell, cough/SOB as well as fevers and chills today. Found to have right perihilar infiltrate on CXR suggestive of PNA On exam he is afebrile, mildly hypertensive, tachycardic and tachypneic on arrival now improved. NAD. Adequate oxygenation on room air Gen: NAD, patient appears ill HEENT: NC/AT, PERRL, EOMI, MMM, no JVD Heart: +S1/S2 Lungs: CTA Abd: +BS, soft, NT/ND Ext: no edema Labs and images reviewed Assessment/Plan: 78yo male with multiple medical comorbidities presenting with CAP. -Admit to medical floor -Treatment of CAP with h/o asthma with Ceftriaxone, Doxycycline, Prednisone, Nebs -Repeat BMP in AM to assess renal function -Repeat troponin in AM - patient is CP free, no EKG changes to suggest acute ischemia -Remainder of plan as above Resident Activity Tracking Resident Involvement: Resident Care Provided Care Provided: Adult Hospital Medicine
[2018-07-26] MEDS ORDERED: CARBOHYDRATES FOR HYPOGLYCEMIA PO PRN (00:35)
[2018-07-26] MEDS ORDERED: ALBUTEROL HFA 8 GM INHALER INH PRN (00:35)
[2018-07-26] MEDS ORDERED: GLUCOSE 40% GEL 15 GM TUBE PO PRN (00:35)
[2018-07-26] MEDS ORDERED: GLUCAGON FOR INJ 1 MG VIAL SQ PRN (00:35)
[2018-07-26] MEDS ORDERED: GLUCOSE 10 TABS/TUBE PO PRN (00:35)
[2018-07-26] MEDS ORDERED: DEXTROSE 50% 50 ML SYRINGE IV PRN (00:35)
[2018-07-26] MEDS ORDERED: ACETAMINOPHEN 325 MG TAB PO PRN (00:35)
[2018-07-26] MEDS: ALBUT/IPRATROP 3MG/0.5MG NEB 3 ML VIAL NEB SCH ×2 (01:45→07:20)
[2018-07-26] MEDS: LEVOTHYROXINE SODIUM 75 MCG TABLET PO SCH (05:37)
[2018-07-26] MEDS: ENOXAPARIN INJ 40 MG/0.4 ML SYR SQ SCH (05:38)
[2018-07-26 06:50] LABS: Basophils # (auto) 0.01 K/uL (0-0.2); Basophils % (auto) 0.1 %; Eosinophils # (auto) 0.01 K/uL (0-0.5); Eosinophils % (auto) 0.1 %; Hematocrit (blood only) 41.6 % (42-52); Hemoglobin 13.8 g/dL (14.0-18.0); Immature Granulocytes # (auto) 0.11 K/uL (0.00-0.02); Immature Granulocytes % (auto) 0.9 %; Lymphocytes # (auto) 0.75 K/uL (1.2-3.4); Lymphocytes % (auto) 6.4 %; Mean Corpuscular Hgb Conc 33.2 g/dL (32-36); Mean Corpuscular Volume 85.1 fL (80-100); Mean Platelet Volume 10.1 fL (7.4-10.4); Monocytes # (auto) 0.29 K/uL (0.11-0.59); Monocytes % (auto) 2.5 %; Neutrophils # (auto) 10.54 K/uL (1.4-6.5); Platelet Count 243 K/uL (130-400); RDW Coefficient of Variation 16.6 % (11.5-14.5); RDW Standard Deviation 51.5 fL (36.4-46.3); Red Blood Count 4.89 M/uL (4.7-6.1); White Blood Count 11.71 K/uL (4.8-10.8)
[2018-07-26 07:21] LABS: BUN Creatinine Ratio 13.7 (10-20); Calcium 8.7 mg/dl (8.5-10.1); Creatinine Clr Calc Pharmacy 49.1 ml/min; Est GFR (African American) 53.2; Est GFR (Non-African American) 45.9; Potassium 4.1 mmol/L (3.5-5.1)
[2018-07-26 07:28] LABS: Troponin I 0.039 ng/ml (0-0.045)
[2018-07-26] MEDS ORDERED: predniSONE 20 MG TAB PO SCH (09:00)
[2018-07-26] MEDS: HYDROCORTISONE 10 MG TAB PO SCH (09:02)
[2018-07-26] MEDS: POTASSIUM CHLORIDE 20 MEQ TABCR PO SCH (09:02)
[2018-07-26] MEDS: FUROSEMIDE 40 MG TAB PO SCH (09:03)
[2018-07-26] MEDS: ESCITALOPRAM OXALATE 10 MG TAB PO SCH (09:04)
[2018-07-26] MEDS: GABAPENTIN 300 MG CAP PO SCH (09:05)
[2018-07-26] MEDS: CLOPIDOGREL BISULFATE 75 MG TAB PO SCH (09:05)
[2018-07-26] MEDS: BUDESONIDE/FORMOTEROL FUMARATE 160/4.5 60 PUFFS/INHALER INH SCH ×2 (09:06→21:27)
[2018-07-26] MEDS: DOXYCYCLINE HYCLATE 100 MG CAP PO SCH ×2 (09:06→21:27)
[2018-07-26] MEDS: PANTOprazole 40 MG TAB PO SCH (09:06)
[2018-07-26] MEDS: METOPROLOL SUCC 25MG EXT REL TAB PO SCH (09:06)
[2018-07-26] MEDS: INSULIN 70% ASPART PROTAMINE/30% ASPART SC SCH ×2 (09:07→17:40)
[2018-07-26] MEDS: BuPROPion XL 150 MG TABCR PO SCH (09:07)
[2018-07-26] MEDS: FINASTERIDE 5 MG TAB PO SCH (09:07)
[2018-07-26] MEDS: INSULIN ASPART 100 UNITS/ML 3 ML PEN SC SCH ×4 (09:08→21:27)
[2018-07-26] MEDS ORDERED: ALBUT/IPRATROP 3MG/0.5MG NEB 3 ML VIAL NEB PRN (10:10)
--- NOTE | 2018-07-26 17:34 | Family Medicine Progress Note ---
Date of Service July 26, 2018 Assessment & Plan (1) SOB (shortness of breath): 78-year-old male was admitted on 25 Jul 2018 for fever and shortness of breath, found to have CAP. CAP: Patient has underlying asthma. Suspect symptoms more related to CAP than CHF or an acute asthma exacerbation. - On arrival, afebrile, tachycardic, tachypneic, with SpO2 94% on room air. Negative for influenza A and B. WBC 15, lactate 2.5. VBG pH 7.37, CO2 48, bicarb 27. pCXR suggestive of right perihilar opacities as well as trace bilateral effusions. Blood cultures drawn, pending. - Repeat lactate normal. Duonebs PRN. Continue scheduled duo nebs and prednisone taper. Continued his hydrocortisone (primary adrenal insufficiency). Continue coverage with ceftriaxone and doxycycline (given long QTc). - Takes prednisone for PMR, daily dose of 9 mg. Given 40mg on 07/26, recommend 20mg x 3 days starting 07/27, 15mg x 3 days, 10 mg x 3 days, then back to usual 9mg dose. Asthma: Continue home albuterol, Symbicort, zafirlukast. Increased dose of prednisone. Adrenal insufficiency: Increased hydrocortisone for stress dose Elevated creatinine: - Admit Cr 1.48, repeat 1.43 (comparison May Cr 1.16). - Continue to monitor. Elevated troponin, resolved: - Admit TnI 0.101 at 1845, repeat .039. BNP 5300. EKG looks roughly unchanged compared to 30Jan2018. Prolonged QTc: EKG notes QTc 500. We will try to avoid adding any QTc prolonging drugs. Repeat EKG in AM of 07/27 Diabetes, diabetic neuropathy: At home is on insulin aspart and Neurontin. --- Continue insulin sliding scale. Monitor for elevated BSG considering increased dose of steroids. Ongoing medical issues: - Hypertension, hyperlipidemia, history of NSTEMI, sick sinus syndrome, paroxysmal Afib: Has permanent dual-chamber pacemaker. 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 Continue home Lasix. - PMR: home prednisone of 9mg daily. Taper as above. - Tena's thyroiditis: Continue home levothyroxine. - Depression, anxiety: Continue home bupropion Lexapro. - BPH: Continue home finasteride. - GERD: Continue home omeprazole. Code status: Discussed with the patient and his . He wishes to be DO NOT RESUSCITATE. Diet: Heart healthy, diabetes. DVT prophy: Lovenox. PT/OT: Deferred. Disbo: Admit to [facility]. (2) Community acquired pneumonia: (3) Elevated serum creatinine: (4) Chronic renal insufficiency: (5) Prolonged Q-T interval on ECG: (6) Hypertension: (7) Hyperlipidemia: (8) History of non-ST elevation myocardial infarction (NSTEMI): (9) Sick sinus syndrome: (10) Paroxysmal A-fib: (11) Combined systolic and diastolic congestive heart failure: (12) Asthma: (13) Tena's thyroiditis: (14) Adrenal insufficiency: (15) Diabetes: (16) Diabetic neuropathy: (17) Depression: (18) Anxiety: (19) BPH (benign prostatic hyperplasia): (20) GERD (gastroesophageal reflux disease): Supervising Physician Co-Signing Physician Notes Resident Physician Supervision Note: I independently interviewed and examined the patient and verified the harrell history and physical, reviewed labs and image studies, discussed the case with the resident Dr. Levin and agree with the findings and care plan. Subjective Patient reports he still feels generally unwell. He reports he feels "a little better" compared to yesterday. Review of Systems Review of Systems: All systems reviewed & are unremarkable except as noted in HPI & below Constitutional: + fatigue and + weakness; no fever and no chills Respiratory: + cough, + chest congestion and + dyspnea Cardiovascular: no chest pain Gastrointestinal: no abdominal pain Physical Exam Constitutional: WD/WN, vitals as above + obese Eyes: PERRL, conjunctivae normal, anicteric sclerae strabismus ENMT: external ear and nose normal, oropharynx normal Neck: normal visual inspection Respiratory: normal respiratory effort, lungs clear to auscultation Cardiovascular: RRR, no murmur, no edema Gastrointestinal (Abdomen): normal bowel sounds, soft, nontender, no hepatosplenomegaly Musculoskeletal: no cyanosis or clubbing, extremities motor strength 5/5 Skin: no rashes, warm and dry Neurologic: PERRL, EOMI, accommodation nl, no face palsy, no dysarthria Results & Data Vital Signs (Past 12 Hours) Vital Signs Temp Pulse Pulse Resp BP Pulse Ox 07/26/18 15:31 35.7 C L 74 18 162/93 H 96 07/26/18 07:22 78 16 97 07/26/18 07:18 36.6 C 72 18 150/71 H 95 Laboratory Results 07/26/18 07/26/18 07/26/18 Range/Units 16:51 11:39 07:51 WBC (4.8-10.8) K/uL RBC (4.7-6.1) M/uL Hgb (14.0-18.0) g/dL Hct (42-52) % MCV (80-100) fL MCH (25-34) pg MCHC (32-36) g/dL RDW Std Deviation (36.4-46.3) fL RDW Coeff of Andrew (11.5-14.5) % Plt Count (130-400) K/uL MPV (7.4-10.4) fL Immature Gran % (Auto) % Neut % (Auto) % Lymph % (Auto) % Garvin % (Auto) % Eos % (Auto) % Baso % (Auto) % Immature Gran # (Auto) (0.00-0.02) K/uL Neut # (Auto) (1.4-6.5) K/uL Lymph # (Auto) (1.2-3.4) K/uL Garvin # (Auto) (0.11-0.59) K/uL Eos # (Auto) (0-0.5) K/uL Baso # (Auto) (0-0.2) K/uL PT INR APTT PTT Ratio VBG pH (7.36-7.41) VBG pCO2 (38-50) mmHg VBG pO2 mmHg VBG HCO3 mmol/L VBG O2 Saturation % VBG Base Excess mEq/L Barometric Pressure mm/Hg Sodium (136-145) mmol/L Potassium (3.5-5.1) mmol/L Chloride (98-107) mmol/L Carbon Dioxide (21-32) mmol/L Anion Gap (3-11) BUN (7-18) mg/dl Creatinine (0.6-1.4) mg/dl Est Cr Clr Drug Dosing ml/min Est GFR ( Amer) Est GFR (Non-Af Amer) BUN/Creatinine Ratio (10-20) Glucose (70-99) mg/dl POC Glucose 277 H 189 H 227 H (70-99) Lactate (0.4-2.0) mmol/L Calcium (8.5-10.1) mg/dl Total Bilirubin (0.2-1) mg/dl Direct Bilirubin (0-0.2) mg/dl AST (15-37) U/L ALT (12-78) U/L Alkaline Phosphatase (45-117) U/L Troponin I (0-0.045) ng/ml NT-Pro-B Natriuret Pep (0-1800) pg/ml Total Protein (6.4-8.2) gm/dl Albumin (3.4-5.0) gm/dl Lipase (73-393) U/L Influenza Type A (PCR) (Neg) Influenza Type B (PCR) (Neg) 07/26/18 07/26/18 07/25/18 Range/Units 06:31 06:31 23:13 WBC 11.71 H (4.8-10.8) K/uL RBC 4.89 (4.7-6.1) M/uL Hgb 13.8 L (14.0-18.0) g/dL Hct 41.6 L (42-52) % MCV 85.1 (80-100) fL MCH 28.2 (25-34) pg MCHC 33.2 (32-36) g/dL RDW Std Deviation 51.5 H (36.4-46.3) fL RDW Coeff of Andrew 16.6 H (11.5-14.5) % Plt Count 243 (130-400) K/uL MPV 10.1 (7.4-10.4) fL Immature Gran % (Auto) 0.9 % Neut % (Auto) 90.0 % Lymph % (Auto) 6.4 % Garvin % (Auto) 2.5 % Eos % (Auto) 0.1 % Baso % (Auto) 0.1 % Immature Gran # (Auto) 0.11 H (0.00-0.02) K/uL Neut # (Auto) 10.54 H (1.4-6.5) K/uL Lymph # (Auto) 0.75 L (1.2-3.4) K/uL Garvin # (Auto) 0.29 (0.11-0.59) K/uL Eos # (Auto) 0.01 (0-0.5) K/uL Baso # (Auto) 0.01 (0-0.2) K/uL PT INR APTT PTT Ratio VBG pH (7.36-7.41) VBG pCO2 (38-50) mmHg VBG pO2 mmHg VBG HCO3 mmol/L VBG O2 Saturation % VBG Base Excess mEq/L Barometric Pressure mm/Hg Sodium 137 (136-145) mmol/L Potassium 4.1 (3.5-5.1) mmol/L Chloride 106 (98-107) mmol/L Carbon Dioxide 25 (21-32) mmol/L Anion Gap 6.0 (3-11) BUN 20 H (7-18) mg/dl Creatinine 1.43 H (0.6-1.4) mg/dl Est Cr Clr Drug Dosing 49.1 ml/min Est GFR ( Amer) 53.2 Est GFR (Non-Af Amer) 45.9 BUN/Creatinine Ratio 13.7 (10-20) Glucose 233 H (70-99) mg/dl POC Glucose (70-99) Lactate 1.3 (0.4-2.0) mmol/L Calcium 8.7 (8.5-10.1) mg/dl Total Bilirubin (0.2-1) mg/dl Direct Bilirubin (0-0.2) mg/dl AST (15-37) U/L ALT (12-78) U/L Alkaline Phosphatase (45-117) U/L Troponin I 0.039 (0-0.045) ng/ml NT-Pro-B Natriuret Pep (0-1800) pg/ml Total Protein (6.4-8.2) gm/dl Albumin (3.4-5.0) gm/dl Lipase (73-393) U/L Influenza Type A (PCR) (Neg) Influenza Type B (PCR) (Neg) 07/25/18 07/25/18 07/25/18 Range/Units 19:29 18:45 18:45 WBC (4.8-10.8) K/uL RBC (4.7-6.1) M/uL Hgb (14.0-18.0) g/dL Hct (42-52) % MCV (80-100) fL MCH (25-34) pg MCHC (32-36) g/dL RDW Std Deviation (36.4-46.3) fL RDW Coeff of Andrew (11.5-14.5) % Plt Count (130-400) K/uL MPV (7.4-10.4) fL Immature Gran % (Auto) % Neut % (Auto) % Lymph % (Auto) % Garvin % (Auto) % Eos % (Auto) % Baso % (Auto) % Immature Gran # (Auto) (0.00-0.02) K/uL Neut # (Auto) (1.4-6.5) K/uL Lymph # (Auto) (1.2-3.4) K/uL Garvin # (Auto) (0.11-0.59) K/uL Eos # (Auto) (0-0.5) K/uL Baso # (Auto) (0-0.2) K/uL PT 10.6 INR 1.0 APTT 26.6 PTT Ratio 1.0 VBG pH 7.37 (7.36-7.41) VBG pCO2 48 (38-50) mmHg VBG pO2 20 mmHg VBG HCO3 27 mmol/L VBG O2 Saturation < 60.0 % VBG Base Excess 1.0 mEq/L Barometric Pressure 733.7 mm/Hg Sodium (136-145) mmol/L Potassium (3.5-5.1) mmol/L Chloride (98-107) mmol/L Carbon Dioxide (21-32) mmol/L Anion Gap (3-11) BUN (7-18) mg/dl Creatinine (0.6-1.4) mg/dl Est Cr Clr Drug Dosing ml/min Est GFR ( Amer) Est GFR (Non-Af Amer) BUN/Creatinine Ratio (10-20) Glucose (70-99) mg/dl POC Glucose (70-99) Lactate (0.4-2.0) mmol/L Calcium (8.5-10.1) mg/dl Total Bilirubin (0.2-1) mg/dl Direct Bilirubin (0-0.2) mg/dl AST (15-37) U/L ALT (12-78) U/L Alkaline Phosphatase (45-117) U/L Troponin I (0-0.045) ng/ml NT-Pro-B Natriuret Pep (0-1800) pg/ml Total Protein (6.4-8.2) gm/dl Albumin (3.4-5.0) gm/dl Lipase (73-393) U/L Influenza Type A (PCR) Neg for Influ A (Neg) Influenza Type B (PCR) Neg for Influ B (Neg) 07/25/18 07/25/18 07/25/18 Range/Units 18:45 18:45 18:45 WBC (4.8-10.8) K/uL RBC (4.7-6.1) M/uL Hgb (14.0-18.0) g/dL Hct (42-52) % MCV (80-100) fL MCH (25-34) pg MCHC (32-36) g/dL RDW Std Deviation (36.4-46.3) fL RDW Coeff of Andrew (11.5-14.5) % Plt Count (130-400) K/uL MPV (7.4-10.4) fL Immature Gran % (Auto) % Neut % (Auto) % Lymph % (Auto) % Garvin % (Auto) % Eos % (Auto) % Baso % (Auto) % Immature Gran # (Auto) (0.00-0.02) K/uL Neut # (Auto) (1.4-6.5) K/uL Lymph # (Auto) (1.2-3.4) K/uL Garvin # (Auto) (0.11-0.59) K/uL Eos # (Auto) (0-0.5) K/uL Baso # (Auto) (0-0.2) K/uL PT Cancelled INR Cancelled APTT Cancelled PTT Ratio Cancelled VBG pH (7.36-7.41) VBG pCO2 (38-50) mmHg VBG pO2 mmHg VBG HCO3 mmol/L VBG O2 Saturation % VBG Base Excess mEq/L Barometric Pressure mm/Hg Sodium 137 (136-145) mmol/L Potassium 3.6 (3.5-5.1) mmol/L Chloride 105 (98-107) mmol/L Carbon Dioxide 26 (21-32) mmol/L Anion Gap 6.0 (3-11) BUN 14 (7-18) mg/dl Creatinine 1.48 H (0.6-1.4) mg/dl Est Cr Clr Drug Dosing 45.9 ml/min Est GFR ( Amer) 51.1 Est GFR (Non-Af Amer) 44.1 BUN/Creatinine Ratio 9.7 L (10-20) Glucose 165 H (70-99) mg/dl POC Glucose (70-99) Lactate 2.5 H* (0.4-2.0) mmol/L Calcium 8.8 (8.5-10.1) mg/dl Total Bilirubin 0.8 (0.2-1) mg/dl Direct Bilirubin 0.2 (0-0.2) mg/dl AST 12 L (15-37) U/L ALT 22 (12-78) U/L Alkaline Phosphatase 67 (45-117) U/L Troponin I 0.101 H* (0-0.045) ng/ml NT-Pro-B Natriuret Pep 5300 H (0-1800) pg/ml Total Protein 7.0 (6.4-8.2) gm/dl Albumin 3.4 (3.4-5.0) gm/dl Lipase 80 (73-393) U/L Influenza Type A (PCR) (Neg) Influenza Type B (PCR) (Neg) 07/25/18 Range/Units 18:45 WBC 15.11 H (4.8-10.8) K/uL RBC 5.31 (4.7-6.1) M/uL Hgb 15.3 (14.0-18.0) g/dL Hct 45.7 (42-52) % MCV 86.1 (80-100) fL MCH 28.8 (25-34) pg MCHC 33.5 (32-36) g/dL RDW Std Deviation 52.3 H (36.4-46.3) fL RDW Coeff of Andrew 16.6 H (11.5-14.5) % Plt Count 267 (130-400) K/uL MPV 10.3 (7.4-10.4) fL Immature Gran % (Auto) 0.8 % Neut % (Auto) 79.6 % Lymph % (Auto) 10.1 % Garvin % (Auto) 8.3 % Eos % (Auto) 1.1 % Baso % (Auto) 0.1 % Immature Gran # (Auto) 0.12 H (0.00-0.02) K/uL Neut # (Auto) 12.03 H (1.4-6.5) K/uL Lymph # (Auto) 1.52 (1.2-3.4) K/uL Garvin # (Auto) 1.26 H (0.11-0.59) K/uL Eos # (Auto) 0.16 (0-0.5) K/uL Baso # (Auto) 0.02 (0-0.2) K/uL PT INR APTT PTT Ratio VBG pH (7.36-7.41) VBG pCO2 (38-50) mmHg VBG pO2 mmHg VBG HCO3 mmol/L VBG O2 Saturation % VBG Base Excess mEq/L Barometric Pressure mm/Hg Sodium (136-145) mmol/L Potassium (3.5-5.1) mmol/L Chloride (98-107) mmol/L Carbon Dioxide (21-32) mmol/L Anion Gap (3-11) BUN (7-18) mg/dl Creatinine (0.6-1.4) mg/dl Est Cr Clr Drug Dosing ml/min Est GFR ( Amer) Est GFR (Non-Af Amer) BUN/Creatinine Ratio (10-20) Glucose (70-99) mg/dl POC Glucose (70-99) Lactate (0.4-2.0) mmol/L Calcium (8.5-10.1) mg/dl Total Bilirubin (0.2-1) mg/dl Direct Bilirubin (0-0.2) mg/dl AST (15-37) U/L ALT (12-78) U/L Alkaline Phosphatase (45-117) U/L Troponin I (0-0.045) ng/ml NT-Pro-B Natriuret Pep (0-1800) pg/ml Total Protein (6.4-8.2) gm/dl Albumin (3.4-5.0) gm/dl Lipase (73-393) U/L Influenza Type A (PCR) (Neg) Influenza Type B (PCR) (Neg) Medications Administered Current Inpatient Medications Acetaminophen (Tylenol) 650 mg PO Q4H PRN PRN Reason: pain/fever Stop: 08/25/18 00:34 Albuterol (Ventolin Hfa) 2 puffs INH QID PRN PRN Reason: Shortness Of Breath Or Wheezing Stop: 08/25/18 00:34 Albuterol (Duoneb) 3 ml NEB Q6R PRN PRN Reason: Dyspnea Stop: 08/25/18 01:59 Budesonide/Formoterol Fumarate (Symbicort 160mcg/4.5mcg) 2 puffs INH BID KATHLEEN Stop: 08/25/18 08:59 Last Admin: 07/26/18 09:06 Dose: 2 puffs Documented by: Bupropion HCl (Wellbutrin-Xl) 150 mg PO DAILY [facility] Stop: 08/25/18 08:59 Last Admin: 07/26/18 09:07 Dose: 150 mg Documented by: Clopidogrel Bisulfate (Plavix) 75 mg PO QAM [facility] Stop: 08/25/18 08:59 Last Admin: 07/26/18 09:05 Dose: 75 mg Documented by: Dextrose (Dextrose 50%) 25 - 50 ml IV UD PRN; Protocol PRN Reason: Hypoglycemia Protocol Stop: 08/25/18 00:34 Doxycycline Hyclate (Vibramycin) 100 mg PO BID [facility] Stop: 08/02/18 08:59 Last Admin: 07/26/18 09:06 Dose: 100 mg Documented by: Enoxaparin Sodium (Lovenox) 40 mg SQ Q24H [facility] Stop: 08/25/18 05:59 Last Admin: 07/26/18 05:38 Dose: 40 mg Documented by: Escitalopram Oxalate (Lexapro) 10 mg PO DAILY [facility] Stop: 08/25/18 08:59 Last Admin: 07/26/18 09:04 Dose: 10 mg Documented by: Fenofibrate (Tricor) 145 mg PO HS [facility] Stop: 08/25/18 20:59 Finasteride (Proscar) 5 mg PO QAM [facility] Stop: 08/25/18 08:59 Last Admin: 07/26/18 09:07 Dose: 5 mg Documented by: Furosemide (Lasix) 20 mg PO QAM [facility] Stop: 08/25/18 08:59 Last Admin: 07/26/18 09:03 Dose: 20 mg Documented by: Gabapentin (Neurontin) 300 mg PO DAILY [facility] Stop: 08/25/18 08:59 Last Admin: 07/26/18 09:05 Dose: 300 mg Documented by: Glucagon (Glucagen) 1 mg SQ UD PRN; Protocol PRN Reason: Hypoglycemia Protocol Stop: 08/25/18 00:34 Glucose (Glucose 40%) 15 - 30 gm PO UD PRN; Protocol PRN Reason: Hypoglycemia Protocol Stop: 08/25/18 00:34 Glucose (Dex4 Glucose) 4 - 8 tabs PO UD PRN; Protocol PRN Reason: Hypoglycemia Protocol Stop: 08/25/18 00:34 [facility]ef) [facility] Stop: 08/25/18 08:59 Last Admin: 07/26/18 09:02 Dose: 20 mg Documented by: Hydrocortisone (Cortef) 10 mg PO HS [facility] Stop: 08/25/18 20:59 Ceftriaxone Sodium 2,000 mg/ (Dextrose) 70 mls @ 140 mls/hr IV Q24H [facility]; Protocol Stop: 08/02/18 20:59 Insulin Aspart (Novolog Mix 70/30) 45 units SC BIDM [facility] Stop: 08/25/18 07:59 Last Admin: 07/26/18 09:07 Dose: 45 units Documented by: Insulin Aspart (Novolog Flexpen) 0 units SC ACHS [facility] Stop: 08/25/18 07:29 Last Admin: 07/26/18 12:27 Dose: 3 units Documented by: Levothyroxine Sodium (Synthroid) 75 [facility] Stop: 08/25/18 06:29 Last Admin: 07/26/18 05:37 Dose: 75 mcg Documented by: Metoprolol Succinate (Toprol Xl) 25 mg PO [facility] Stop: 08/25/18 08:59 Last Admin: 07/26/18 09:06 Dose: 25 mg Documented by: Miscellaneous (Order Awaiting Action) 1 ea N/A QS [facility] Stop: 08/25/18 07:59 Last Admin: 07/26/18 17:36 Dose: Not Given Documented by: Miscellaneous (Carbohydrates For Hypoglycemia) 15 - 30 gm PO UD PRN PRN Reason: Hypoglycemia Treatment Stop: 08/25/18 00:34 Pantoprazole Sodium (Protonix) 40 mg PO DAILY [facility] Stop: 08/25/18 08:59 Last Admin: 07/26/18 09:06 Dose: 40 mg Documented by: Potassium Chloride (Klor-Con M20) 20 [facility] Stop: 08/25/18 08:59 Last Admin: 07/26/18 09:02 Dose: 20 meq Documented by: Pravastatin Sodium (Pravachol) 40 mg PO [facility] Stop: 08/25/18 20:59 Prednisone (Prednisone) 40 [facility] Stop: 08/25/18 08:59 Last Admin: 07/26/18 09:05 Dose: 40 mg Documented by: Resident Activity Tracking Resident Involvement: Resident Care Provided Care Provided: Adult Hospital Medicine
[2018-07-26] MEDS ORDERED: FENOFIBRATE NANOCRYSTALLIZED 145 MG TABLET PO SCH (21:00)
[2018-07-26] MEDS ORDERED: HYDROCORTISONE 10 MG TAB PO SCH (21:00)
[2018-07-26] MEDS ORDERED: cefTRIAXone SODIUM 2,000 MG in DEXTROSE 5% 50 ML IV SCH (21:00)
[2018-07-26] MEDS ORDERED: PRAVASTATIN SOD 40 MG TAB PO SCH (21:00)
[2018-07-27] MEDS: LEVOTHYROXINE SODIUM 75 MCG TABLET PO SCH (06:13)
[2018-07-27] MEDS: ENOXAPARIN INJ 40 MG/0.4 ML SYR SQ SCH (06:13)
[2018-07-27] MEDS: PANTOprazole 40 MG TAB PO SCH (07:35)
[2018-07-27] MEDS: ESCITALOPRAM OXALATE 10 MG TAB PO SCH (07:35)
[2018-07-27] MEDS: CLOPIDOGREL BISULFATE 75 MG TAB PO SCH (07:35)
[2018-07-27] MEDS: FUROSEMIDE 40 MG TAB PO SCH (07:36)
[2018-07-27] MEDS: HYDROCORTISONE 10 MG TAB PO SCH (07:36)
[2018-07-27] MEDS: GABAPENTIN 300 MG CAP PO SCH (07:36)
[2018-07-27] MEDS: POTASSIUM CHLORIDE 20 MEQ TABCR PO SCH (07:37)
[2018-07-27] MEDS: DOXYCYCLINE HYCLATE 100 MG CAP PO SCH (07:37)
[2018-07-27] MEDS: METOPROLOL SUCC 25MG EXT REL TAB PO SCH (07:37)
[2018-07-27] MEDS: FINASTERIDE 5 MG TAB PO SCH (07:37)
[2018-07-27] MEDS: BuPROPion XL 150 MG TABCR PO SCH (07:37)
[2018-07-27] MEDS: BUDESONIDE/FORMOTEROL FUMARATE 160/4.5 60 PUFFS/INHALER INH SCH (07:38)
[2018-07-27 07:42] LABS: Basophils # (auto) 0.01 K/uL (0-0.2); Basophils % (auto) 0.1 %; Eosinophils # (auto) 0.05 K/uL (0-0.5); Eosinophils % (auto) 0.5 %; Hematocrit (blood only) 40.5 % (42-52); Hemoglobin 13.5 g/dL (14.0-18.0); Immature Granulocytes # (auto) 0.13 K/uL (0.00-0.02); Immature Granulocytes % (auto) 1.2 %; Lymphocytes # (auto) 0.88 K/uL (1.2-3.4); Mean Corpuscular Hgb Conc 33.3 g/dL (32-36); Mean Corpuscular Volume 84.6 fL (80-100); Monocytes # (auto) 0.89 K/uL (0.11-0.59); Monocytes % (auto) 8.1 %; Neutrophils # (auto) 9.01 K/uL (1.4-6.5); Neutrophils % (auto) 82.1 %; Platelet Count 256 K/uL (130-400); RDW Coefficient of Variation 16.6 % (11.5-14.5); RDW Standard Deviation 51.5 fL (36.4-46.3); Red Blood Count 4.79 M/uL (4.7-6.1); White Blood Count 10.97 K/uL (4.8-10.8)
[2018-07-27] MEDS: INSULIN 70% ASPART PROTAMINE/30% ASPART SC SCH (08:47)
[2018-07-27] MEDS: INSULIN ASPART 100 UNITS/ML 3 ML PEN SC SCH (08:48)
[2018-07-27] MEDS ORDERED: predniSONE 20 MG TAB PO SCH (09:00)
[2018-07-27 09:03] LABS: BUN Creatinine Ratio 20.9 (10-20); Creatinine Clr Calc Pharmacy 52.8 ml/min; Est GFR (African American) 58.1; Est GFR (Non-African American) 50.1; Potassium 3.7 mmol/L (3.5-5.1)
--- NOTE | 2018-07-27 10:42 | Discharge Summary ---
Date of Service July 27, 2018 Admission HPI Per Admitting Provider 78-year-old male presents with his complaining of feeling "not too good" and "sicker than the Summers". He says for the past couple of weeks he is felt generally rundown. Today he says he broke out in a cold sweat and had a subjective fever. He denies any ongoing chest pain, shortness of breath, abdominal pain, nausea or vomiting, or other focal concerns. He says earlier today he had rare occasional sharp chest pain that lasted very briefly and self- resolved. He says that he slept a lot today, therefore he skipped his lunch, and at present he is hungry. --- Past medical history includes hypertension, hyperlipidemia, and STEMI, sick sinus syndrome, paroxysmal A. fib, combined systolic and diastolic CHF, asthma, Tena's thyroiditis, diabetes, diabetic neuropathy, depression, anxiety, BPH, GERD. --- Past surgical history includes cataract surgery, pacemaker placement, sinus surgery. --- Social history includes denying any prior tobacco use. Denies alcohol use. Lives at home with his . Principal Diagnosis community acquired pneumonia Discharge Exam Vitals noted within normal limits with exception of hypertension. GENERAL: Awake, alert to person, place, and time, nontoxic-appearing, in no distress HENT: Normocephalic, atraumatic. Mucus membranes appear moist. EYES: Normal conjunctiva. Sclera non-icteric. EOMI. NECK: Supple. Full range of motion. No JVD RESPIRATORY: Slight wheeze bilaterally. Normal work of breathing. Acyanotic. CARDIAC: Regular rate, normal rhythm. Extremities warm and well perfused, 2+ radial pulses bilaterally; 2+ posterior tibialis pulses bilaterally. ABDOMEN: Soft, non-distended. No tenderness to palpation in all four quadrants. No rebound or guarding. No masses. Bowel sounds are normal. LOWER EXTREMITIES: Inspection of calves reveal equal size bilaterally. They are non-tender. No edema. No discoloration. NEURO: No focal gross focal motor deficits noted. Sensation in tact. CN II-XII grossly in tact. Normal gait. SKIN: Rash not present. No jaundice noted. Significant lesions not present. PSYCH: Appropriate mood and affect. Cooperative. Exam as done by Agatha Escamilla MD, [employer]. Discharge Data Allergies Allergy/AdvReac Type Severity Reaction Status Date / Time aspirin Allergy Unknown DOES NOT Verified 01/30/18 17:54 TAKE D/T ASTHMA Consultations 07/25/18 19:48 ED Decision to Admit Stat Hospital Course (1) SOB (shortness of breath): 78-year-old male was admitted on 25 Jul 2018 for fever and shortness of breath, found to have CAP. Community Acquired Pneumonia: Patient has underlying asthma. Suspect symptoms more related to CAP than CHF or an acute asthma exacerbation. - On arrival, afebrile, tachycardic, tachypneic, with SpO2 94% on room air. Negative for influenza A and B. WBC 15, lactate 2.5. VBG pH 7.37, CO2 48, bicarb 27. pCXR suggestive of right perihilar opacities as well as trace bilateral effusions. Blood cultures negative. - Repeat lactate normal. Duonebs and prednisone with good effect. -Continued his hydrocortisone (he takes for primary adrenal insufficiency). - Recommend complete course of ceftriaxone IV --> augmentin PO and doxycycline PO (azithromycin/levaquin relatively contraindicated given long QTc). - Home dose of prednisone for PMR, is 9 mg. Given 40mg on 07/26 here, recommend taper of 20mg x 3 days starting 07/27, 15mg x 3 days, 10 mg x 3 days, then back to usual 9mg dose daily. Asthma: Continued home albuterol, Symbicort, zafirlukast. Increased dose of prednisone. Adrenal insufficiency: Increased hydrocortisone for stress dose. Switch back to home dose on discharge. Elevated creatinine, chronic renal insufficiency: - Admit Cr 1.48, back down to 1.33 (baseline appears to be 1.2 - 1.4). Elevated troponin, resolved: - Admit TnI 0.101 at 1845, repeat .039. BNP 5300. EKG looks roughly unchanged compared to 30Jan2018. Prolonged QTc, resolved: -EKG on admission notes QTc 500. Avoiding QTc prolonging drugs as above. Repeat EKG 09May shows resolved - QTc 458. Ongoing medical issues: - Hypertension, hyperlipidemia, history of NSTEMI, sick sinus syndrome, paroxysmal Afib: Has permanent dual-chamber pacemaker. 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 Continue home Lasix. - PMR: home prednisone of 9mg daily. Taper as above. - Tena's thyroiditis: Continue home levothyroxine. - Diabetes, diabetic neuropathy: At home is on insulin aspart and Neurontin. - Depression, anxiety: Continue home bupropion Lexapro. - BPH: Continue home finasteride. - GERD: Continue home omeprazole. Yeni Escamilla MD (2) Community acquired pneumonia: (3) Elevated serum creatinine: (4) Chronic renal insufficiency: (5) Prolonged Q-T interval on ECG: (6) Hypertension: (7) Hyperlipidemia: (8) History of non-ST elevation myocardial infarction (NSTEMI): (9) Sick sinus syndrome: (10) Paroxysmal A-fib: (11) Combined systolic and diastolic congestive heart failure: (12) Asthma: (13) Tena's thyroiditis: (14) Adrenal insufficiency: (15) Diabetes: (16) Diabetic neuropathy: (17) Depression: (18) Anxiety: (19) BPH (benign prostatic hyperplasia): (20) GERD (gastroesophageal reflux disease): Total Time Total Time Spent Total Time Spent (In Minutes): 30 Discharge Plan Discharge Items Patient Disposition: Home - Self-Care Reason For Visit: SOB,CAP Discharge Diagnosis: SOB, CAP Condition: Fair Discharge Goals: Decrease discomfort, Diagnostic testing, Improve function, Increase independence and Learn about illness Activity: Per 'Additional Instructions' section Bathing: No limitations Sexual Activity: When tolerated Non-emergency contact: Primary Care Provider Call non-emergency contact if: you have any medication questions, your symptoms worsen and your temperature is above 101 Follow-up/Referrals: Maegan Delgado MD [Primary Care Provider] - 08/04/18 3:00 pm (Please, follow up at Dr. Delgado's office with her clinical trials assistant, Obdulia Benavides Pa-C, on TuesdayAugust 04 at 3:00 pm. *If you need to change this appointment, call the office at [phone].) Diet: Carb Consistent or DM2 and Heart Healthy Addtl Provider Instructions: You were admitted due to shortness of breath. This appears to be due to a pneumonia -- this was treated with antibiotics and you will need to continue doxycycline and augmentin tabs until it is completed. Please be sure to take a live active cultured yogurt or probiotic (availabel over the counter) while you are taking the medicine to avoid complications to your gut martin. You are on daily steroids called hydrocortisone and prednisone. (You will continue the hydrocortisone at your normal dose.) Your prednisone was increased while in the hospital to help support your ongoing progress -- this will need to be tapered -- Please take: 20mg for 3 days starting July 27, 15mg for 3 days, 10 mg for 3 days, THEN RESUME your usual 9mg daily dose. Please continue all your other medications, we have made no changes to these. Please follow up with your PCP next week -- an appointment is being arranged for you. There are no repeat labs needed in the meantime. Pneumonias take time to resolve -- complete your antibiotics. Try to be as ac tive as possible. Your energy levels will take longer to recover, usually 1-2 months. If your symptoms recur as in your breathing worsens and does not resolve with rest, or you develop a fever that is persistent despite tylenol, or if you are concerned please reach out to your PCP or go to the ED. Be Well A Andi CLAYTON Prescriptions: New prednisone 5 mg tablet See Rx Instructions .ROUTE .COMPLEX Qty: 23 RF: 0 doxycycline hyclate 100 mg capsule 100 mg PO BID 9 Days Qty: 18 RF: 0 amoxicillin-pot clavulanate [Augmentin] 875-125 mg tablet 1 tab PO BID 5 Days Qty: 10 RF: 0 Continued furosemide 40 mg tablet 20 mg PO QAM RF: 0 clopidogrel 75 mg tablet 75 mg PO QAM RF: 0 levothyroxine 75 mcg tablet 75 mcg PO QAM RF: 0 potassium chloride 20 mEq tablet,ER particles/crystals 20 meq PO QAM RF: 0 hydrocortisone 20 mg tablet 20 mg PO QAM RF: 0 zafirlukast 20 mg tablet 20 mg PO BID RF: 0 metoprolol succinate 25 mg tablet extended release 24 hr 25 mg PO QAM RF: 0 hydrocortisone 10 mg tablet 10 mg PO HS RF: 0 albuterol sulfate 90 mcg/actuation HFA aerosol inhaler 2 puff Inhalation QID PRN (Reason: Shortness Of Breath Or Wheezing) RF: 0 finasteride 5 mg tablet 5 mg PO QAM RF: 0 insulin asp prt-insulin aspart 100 unit/mL (70-30) insulin pen 45 unit subcut BID RF: 0 bupropion HCl 150 mg tablet extended release 24 hr 150 mg PO DAILY RF: 0 fenofibrate nanocrystallized 145 mg tablet 145 mg PO HS RF: 0 budesonide-formoterol 160-4.5 mcg/actuation HFA aerosol inhaler 2 puff Inhalation BID RF: 0 gabapentin [Neurontin] 300 mg capsule 300 mg PO DAILY RF: 0 escitalopram oxalate [Lexapro] 10 mg tablet 10 mg PO DAILY RF: 0 pravastatin 40 mg Tablet 40 mg PO HS RF: 0 omeprazole 20 mg Capsule,Delayed Release(Dr/Ec) 20 mg PO DAILY RF: 0 Discontinued prednisone 5 mg tablet 5 mg PO DAILY RF: 0 prednisone 1 mg tablet 4 mg PO DAILY RF: 0 Stand-Alone Forms: [facility] Discharge Orders: Discharge Order (Routine); Ordered 07/27/18 Ordered By: Agatha Escamilla Admission Data Admit Date/Time: 07/25/18 22:22 Attending Provider: Mary Alston Admit Provider: Obey Francis Primary Care Provider: Maegan Delgado Other Providers: Kimberly Rangel Service: Medical Other Interventions: Discharge Summary Assessment (RN) Last Done: 07/27/18 10:57 Pending Studies at Discharge: No DC Date/Time DO NOT enter until pt leaves facility: 07/27/18 11:40 Resident Activity Tracking Resident Involvement: Resident Care Provided Care Provided: Adult Hospital Medicine
[2018-07-27 12:08] LABS: Appearance Urine Clear (Clear); Bilirubin Urine Negative (Negative); Blood Urine Negative (Negative); Color Urine Yellow; Glucose Urine UA Negative (Negative); Ketones Urine Negative (Negative); Leukocyte Esterase Urine Negative (Negative); Nitrite Urine Negative (Negative); Protein Urine Negative (Negative); Specific Gravity Urine 1.021 (1.000-1.030); Urobilinogen Urine Negative (Negative)
== END 2018-07-27 11:40 | disposition home or self-care (01) | DRG 194 ==
LOC: ED 18:21 → 4W 22:22 → SUATTDRO 22:22 → 4W 23:25
DX: N18.9 Chronic kidney disease, unspecified; Z66 Do not resuscitate; Z79.4 Long term (current) use of insulin; K21.9 Gastro-esophageal reflux disease without esophagitis; I48.0 Paroxysmal atrial fibrillation; J45.909 Unspecified asthma, uncomplicated; Z79.52 Long term (current) use of systemic steroids; Z79.02 Long term (current) use of antithrombotics/antiplatelets; J18.9 Pneumonia, unspecified organism; N40.0 Benign prostatic hyperplasia without lower urinary tract symptoms; I50.42 Chronic combined systolic (congestive) and diastolic (congestive) heart failure; Z79.899 Other long term (current) drug therapy; E78.5 Hyperlipidemia, unspecified; I13.0 Hypertensive heart and chronic kidney disease with heart failure and stage 1 through stage 4 chronic kidney disease, or unspecified chronic kidney disease; E11.22 Type 2 diabetes mellitus with diabetic chronic kidney disease; M35.3 Polymyalgia rheumatica

== ENCOUNTER 2018-09-04 13:13 | Inpatient (IN) ==
[2018-09-04] MEDS ORDERED: ACETAMINOPHEN 1,000 MG/100 ML VIAL IV STA (14:07)
[2018-09-04] MEDS ORDERED: ALBUT/IPRATROP 3MG/0.5MG NEB 3 ML VIAL NEB STA (14:10)
[2018-09-04] MEDS ORDERED: SODIUM CHLORIDE 0.9% 1000ML 250 ML IV ONE (14:10)
[2018-09-04] MEDS ORDERED: ONDANSETRON INJ 2 MG/ML 2 ML VIAL IV STA (14:12)
[2018-09-04 14:20] LABS: Basophils # (auto) 0.03 K/uL (0-0.2); Basophils % (auto) 0.2 %; Eosinophils # (auto) 1.97 K/uL (0-0.5); Eosinophils % (auto) 16.1 %; Immature Granulocytes # (auto) 0.14 K/uL (0.00-0.02); Immature Granulocytes % (auto) 1.1 %; Lymphocytes # (auto) 0.88 K/uL (1.2-3.4); Lymphocytes % (auto) 7.2 %; Mean Corpuscular Hgb Conc 34.9 g/dL (32-36); Mean Corpuscular Volume 83.8 fL (80-100); Mean Platelet Volume 9.7 fL (7.4-10.4); Monocytes % (auto) 5.7 %; Neutrophils # (auto) 8.51 K/uL (1.4-6.5); Neutrophils % (auto) 69.7 %; Platelet Count 338 K/uL (130-400); RDW Coefficient of Variation 15.8 % (11.5-14.5); RDW Standard Deviation 48.4 fL (36.4-46.3); Red Blood Count 5.13 M/uL (4.7-6.1); White Blood Count 12.23 K/uL (4.8-10.8)
--- NOTE | 2018-09-04 14:34 | XRay Report ---
XR chest 1V portable CLINICAL HISTORY: 78 years-old Male presenting with weakness. TECHNIQUE: Portable upright AP view of the chest was obtained. COMPARISON: 07/25/2018. FINDINGS: Left subclavian pacer with leads to the right atrium and right ventricular apex. Atherosclerosis of a ortic arch. Cardiac silhouette moderately enlarged. Diffusely coarsened lung markings. Right perihila r and right basilar added density stable to slightly increased from prior. Trace pleural effusions ar e not excluded. No pneumothorax. Degenerative changes of the thoracic spine. Upper abdomen normal. IMPRESSION: 1. Added density in the right perihilar and right basilar regions may indicate a developing infiltra te, atelectasis, or less likely asymmetric mild edema. 2. Cardiomegaly without overt evidence of volume overload. Electronically signed by: Hong Alvarez M.D. 09/04/2018 2:33 PM
[2018-09-04 14:38] LABS: Albumin Level 2.9 gm/dl (3.4-5.0); BUN Creatinine Ratio 10.8 (10-20); Calcium 8.9 mg/dl (8.5-10.1); Creatinine Clr Calc Pharmacy 54.6 ml/min; Est GFR (African American) 57.6; Est GFR (Non-African American) 49.7; Potassium 2.9 mmol/L (3.5-5.1)
[2018-09-04 14:50] LABS: Albumin Globulin Ratio 0.7 (0.9-2); Bilirubin,Total 0.6 mg/dl (0.2-1); Total Protein 6.9 gm/dl (6.4-8.2); Troponin I 0.049 ng/ml (0-0.045)
[2018-09-04 15:00] LABS: INR 1.1 (0.9-1.1); Prothrombin Time 11.5 Seconds (9.0-12.0)
[2018-09-04] MEDS ORDERED: OPTIRAY 320 125ml IV PRN (15:07)
--- NOTE | 2018-09-04 15:16 | CT Scan Report ---
CT head/brain wo con CLINICAL HISTORY: 78 years-old Male with headache. Acute headache TECHNIQUE: Multiple axial CT images of the head were obtained without contrast. A dose lowering tech nique was utilized adhering to the principles of ALARA COMPARISON: Head CT 04/13/2013. FINDINGS: No acute intracranial hemorrhage, midline shift, intracranial mass, hydrocephalus, territorial ischem ia or abnormal extra-axial collection. Age-related involutional changes with ex vacuo ventriculomegal y. Unchanged calcifications about the lentiform nuclei bilaterally. Patchy white matter hypodensities suggest chronic microvascular ischemic disease. Cerebral vascular calcifications are noted. The calvarium is intact. Severe mucosal thickening of the ethmoid air cells. Moderate mucoperiosteal thickening throughout the remaining paranasal sinuses. Soft tissues and orbits are unremarkable. Maria G or bilateral cataract repair. IMPRESSION: No acute intracranial abnormality identified. The above report was generated using voice recognition software. It may contain grammatical, syntax o r spelling errors. Electronically signed by: Obey Emerson M.D. 09/04/2018 3:15 PM
--- NOTE | 2018-09-04 15:26 | CT Scan Report ---
CT angio chest PE protocol CT DOSE: 2416.91 mGy.cm HISTORY: 78 years-old Male with PE, weakness, sob. Acute shortness of breath with weakness TECHNIQUE: Multiple CTA images of the chest were obtained after the intravenous administration of 116 ml Optiray 320. Coronal and sagittal MIPS were obtained from the axial data set and were submitted for review. All measurements were obtained according to NASCET criteria. A dose lowering technique w as utilized adhering to the principles of ALARA. COMPARISON: CT abdomen and pelvis of same day, chest CT 10/26/2016 FINDINGS: CTA: Cardiomegaly. No pericardial effusion. Left subclavian pacer is noted with leads overlying the right atrium and right ventricle. Extensive coronary arterial calcifications. No thoracic aortic aneurysm o r dissection. Severe mixed plaque formation of the thoracic aortic arch with patency of the imaged gr eat vessels. The pulmonary arterial tree is opacified to level of the subsegmental branches. The dist al lobar, segmental and subsegmental branches however are suboptimally evaluated secondary to respira tory motion artifact. No definite filling defects identified to suggest pulmonary thromboembolic dise ase. CT CHEST: No focal thyroid nodule. Mildly enlarged 10 mm right paratracheal lymph node, nonspecific. Prominent AP window and subcarinal lymph nodes are also present. Calcified left hilar lymph nodes compatible wi th prior granulomatous disease. Trace right pleural effusion. No pneumothorax. Bilateral subpleural reticular opacities redemonstrate d suggestive of mild scarring. There is moderate bilateral bronchial wall thickening. Patchy bronchov ascular distribution of consolidative opacities noted within the right upper lobe with subsegmental c onsolidation of the right middle lobe. Dependent bibasilar groundglass densities suggest atelectasis. Subsegmental consolidation of the inferior segment lingula. Central airways appear to be patent. The previously described scattered solid pulmonary nodules are not definitively seen on today's study. Hepatic steatosis. Soft tissues are unremarkable. Bones appear intact. Degenerative changes of the sh oulders and spine. IMPRESSION: 1. Study is limited secondary to respiratory motion artifact. No definite evidence of pulmonary throm boembolic disease. 2. Patchy opacities of the right upper lobe are suggestive of a nonspecific infectious or inflammator y pneumonitis. Additional bibasilar opacities are suggestive of probable atelectasis. 3. Cardiomegaly. 4. Hepatic steatosis. The above report was generated using voice recognition software. It may contain grammatical, syntax o r spelling errors. Electronically signed by: Obey Emerson M.D. 09/04/2018 3:24 PM
--- NOTE | 2018-09-04 15:27 | CT Scan Report ---
CT OF THE ABDOMEN AND PELVIS WITH CONTRAST CLINICAL HISTORY: Right lower quadrant pain, diarrhea and weakness. COMPARISON STUDY: CT of the abdomen and pelvis January 30, 2018. TECHNIQUE: Following IV administration of 116 mL of Optiray-320, axial images of the abdomen and pelv is were obtained from the lung bases to the proximal femurs. Images were reviewed in the axial, sagit reena, and coronal planes. IV contrast was administered without complication. Automated exposure contr ol was utilized for the study. A dose lowering technique was utilized adhering to the principles of ALARA. FINDINGS: The chest will be reported separately. Note is made of suspected focal fat along the falcif orm ligament. There is no peripancreatic or pericholecystic infiltration. The spleen, adrenal glands and kidneys are unremarkable with exception of scarring within the mid to lower pole the left kidney. There is no hydronephrosis or hydroureter. There is no biliary or pancreatic ductal dilatation. No p neumatosis, free air or portal venous gas. The appendix is at the upper limits of normal for caliber, measuring 6 mm. The appendix is fluid-filled. There is prominent enhancement of the appendiceal tip shown on image 291 of 461. There is no adjacent infiltration. There is no abscess. The prostate is mo derately enlarged. Mild bladder wall thickening is noted. Colonic diverticulosis is present without e vidence for acute diverticulitis. There are no suspicious osseous lesions. Fat-containing left inguin al hernia is present. IMPRESSION: 1. Prominent enhancement of the appendiceal tip. No periappendiceal infiltration. Caliber of appendix at the upper limits of normal. This enhancement is nonspecific and could reflect early tip appendici tis or an appendiceal lesion. Surgical consultation is recommended. 2. No bowel obstruction. Electronically signed by: Lee Delgado M.D. 09/04/2018 3:26 PM
[2018-09-04] MEDS ORDERED: SODIUM CHLORIDE 0.9% 1000ML 500 ML IV ONE (15:55)
[2018-09-04] MEDS ORDERED: cefTRIAXone SODIUM 2,000 MG in DEXTROSE 5% 50 ML IV STA (16:02)
[2018-09-04] MEDS: POTASSIUM CHLORIDE / WTR 10 MEQ/100 ML PLCT IV SCH ×2 (16:04→20:07)
--- NOTE | 2018-09-04 16:06 | Emergency Department Note ---
Entered by Umm Colorado acting as a scribe for Tony Francis M.D. History of Present Illness General Chief complaint: Illness Stated complaint: VOMITING,FEVER Source: patient History of Present Illness Onset (ago): week(s) (1-1.5) Location: left and right (generalized) Pain Consistency: + constant Maximum Pain Intensity: 8 Quality: + other (illness) Associated symptoms: + cough, + headaches, + loss of appetite, + nausea/vomiting and + shortness of breath The patient is an 78 year old male who presents to the Emergency Room with complaints of a constant generalized illness that started 1-1.5 weeks ago. The patient rates his discomfort an 8/10 in severity. He complains of shortness of breath, nausea, productive cough, lower abdominal pain, diarrhea, rhinorrhea, and a headache. He states he has been using his inhaler and o2 at home. He notes feeling feverish at home but has no objective temperature. He reports he has not been eating for the last 5 days. He notes he has been drinking water and is able to take his medications. The patient reports a history of pneumonia last month. He denies any recent falls. Home Medications Home Medications Medication Instructions Recorded Confirmed Type albuterol sulfate 2 puff INHALATION QID PRN 01/30/18 09/04/18 History budesonide-formoterol 2 puff INHALATION BID 01/30/18 09/04/18 History bupropion HCl 150 mg PO QAM 01/30/18 09/04/18 History clopidogrel 75 mg PO QAM 01/30/18 09/04/18 History fenofibrate nanocrystallized 145 mg PO HS 01/30/18 09/04/18 History finasteride 5 mg PO QAM 01/30/18 09/04/18 History furosemide 20 mg PO QAM 01/30/18 09/04/18 History hydrocortisone 10 mg PO HS 01/30/18 09/04/18 History hydrocortisone 20 mg PO QAM 01/30/18 09/04/18 History insulin asp prt-insulin aspart 45 unit SUBCUT BID 01/30/18 09/04/18 History levothyroxine 75 mcg PO QAM 01/30/18 09/04/18 History metoprolol succinate 25 mg PO QAM 01/30/18 09/04/18 History potassium chloride 20 meq PO QAM 01/30/18 09/04/18 History zafirlukast 20 mg PO BID 01/30/18 09/04/18 History escitalopram oxalate [Lexapro] 10 mg PO QAM 07/25/18 09/04/18 History gabapentin [Neurontin] 300 mg PO QAM 07/25/18 09/04/18 History omeprazole 20 mg PO QAM 07/25/18 09/04/18 History pravastatin 40 mg PO HS 07/25/18 09/04/18 History acetaminophen [Tylenol Extra 500 mg PO Q6H PRN 09/04/18 09/04/18 History Strength] prednisone 9 mg PO QAM 09/04/18 09/04/18 History Allergies Allergy/AdvReac Type Severity Reaction Status Date / Time aspirin Allergy Unknown DOES NOT Verified 09/04/18 14:38 TAKE D/T ASTHMA Past Med/Surg History Medical History Asthma (Chronic 07/01/12) NSTEMI, initial episode of care CHF (congestive heart failure) Diabetes Family History Father Stroke Other Family history non-contributory Social History Preferred Language: Tajik Communication Ability: Effective Beliefs That Will Affect Care: None Current Living Situation: Spouse Feels Safe at Home: Yes Smoking Status: Never smoker Hx Alcohol Use: No Hx Substance Use: No Review of Systems See HPI for pertinent positives & negatives. and A total of 10 systems reviewed and were otherwise negative Physical Exam Vital Signs Vital Signs - 24 hr 09/04/18 13:17 09/04/18 14:25 09/04/18 14:30 Temperature 36.5 C Temperature Source Oral Sepsis Recent Fever Within 48 Hours No Sepsis New/Unexplained Change in Mental Status No Sepsis Action Taken by Nursing No Action Required Pulse Rate 83 94 H 84 Pulse Rate [Right Finger] Pulse Rate from SpO2 Sensor Respiratory Rate 18 21 17 Respiratory Effort / Characteristics Non-Labored Respiratory Depth Normal Respiratory Pattern Regular Blood Pressure 120/64 Blood Pressure [Right Arm] Blood Pressure Mean 82 Blood Pressure Mean [Right Arm] Blood Pressure Position Sitting Pulse Oximetry 97 Oxygen Delivery Method Room Air 09/04/18 14:34 09/04/18 15:16 09/04/18 15:17 Temperature Temperature Source Sepsis Recent Fever Within 48 Hours Sepsis New/Unexplained Change in Mental Status Sepsis Action Taken by Nursing Pulse Rate 88 95 H Pulse Rate [Right Finger] 88 Pulse Rate from SpO2 Sensor 89 Respiratory Rate 18 27 H 19 Respiratory Effort / Characteristics Non-Labored Spontaneous Respiratory Depth Respiratory Pattern Blood Pressure 158/64 H Blood Pressure [Right Arm] Blood Pressure Mean 95 Blood Pressure Mean [Right Arm] Blood Pressure Position Pulse Oximetry 97 95 95 Oxygen Delivery Method Room Air 09/04/18 15:30 09/04/18 16:00 09/04/18 16:02 Temperature Temperature Source Sepsis Recent Fever Within 48 Hours Sepsis New/Unexplained Change in Mental Status Sepsis Action Taken by Nursing Pulse Rate 86 76 Pulse Rate [Right Finger] 83 Pulse Rate from SpO2 Sensor 89 83 Respiratory Rate 27 H 18 Respiratory Effort / Characteristics Respiratory Depth Respiratory Pattern Blood Pressure 104/77 Blood Pressure [Right Arm] 158/64 H Blood Pressure Mean 86 Blood Pressure Mean [Right Arm] 95 Blood Pressure Position Pulse Oximetry 94 96 95 Oxygen Delivery Method 09/04/18 16:30 Temperature Temperature Source Sepsis Recent Fever Within 48 Hours Sepsis New/Unexplained Change in Mental Status Sepsis Action Taken by Nursing Pulse Rate 78 Pulse Rate [Right Finger] Pulse Rate from SpO2 Sensor 72 Respiratory Rate 19 Respiratory Effort / Characteristics Respiratory Depth Respiratory Pattern Blood Pressure 98/57 L Blood Pressure [Right Arm] Blood Pressure Mean 70 Blood Pressure Mean [Right Arm] Blood Pressure Position Pulse Oximetry 96 Oxygen Delivery Method GENERAL: Awake, alert, well-appearing, in no distress HENT: Normocephalic, atraumatic. EYES: Normal conjunctiva. Sclera non-icteric. NECK: Supple. No nuchal rigidity. RESPIRATORY: Mild expiratory wheeze. Normal respiratory effort. CARDIAC: Normal rate. Normal rhythm. Extremities warm and well perfused. GI: Soft, non-distended. Mild right lower abdominal tenderness. No rebound or guarding. No masses. RECTAL: Deferred. MUSCULOSKELETAL: Atraumatic. Chest examination reveals no tenderness. LOWER EXTREMITIES: Calves are equal size bilaterally and non-tender. No edema NEURO: Normal sensorium. No sensory or motor deficits noted. No facial droop. SKIN: Warm and dry. No rash or jaundice noted. Course 1400: The patient was evaluated in room B9. A complete history and physical exam was performed. 1559: I discussed the patient's case with Dr. Ortiz, General Surgery. He recommends antibiotics and agrees to evaluate the patient. 1604: I spoke with Dr. Wilson, [facility] Hospitalist. She agrees to evaluate the patient for further management. 1605: I updated the patient on results. He is in agreement with the treatment plan. Consultations Consultation #1: I discussed the patient's case with Dr. Ortiz, General Surgery. He recommends antibiotics and agrees to evaluate the patient. Time: 15:59 Consultation #2: I spoke with Dr. Wilson, [facility] Hospitalist. She agrees to evaluate the patient for further management. Time: 16:04 Administered Medications Budesonide/Formoterol Fumarate (Symbicort 160mcg/4.5mcg) 2 puffs INH BID KATHLEEN Stop: 10/04/18 20:59 Last Admin: 09/04/18 20:33 Dose: 2 puffs Documented by: [id number] Fenofibrate (Tricor) 145 mg PO HS [facility] Stop: 10/04/18 20:59 Last Admin: 09/04/18 20:33 Dose: 145 mg Documented by: [id number] Heparin Sodium (Porcine) (Heparin Sodium (Porcine)) 5,000 units SQ Q8 KATHLEEN Stop: 10/04/18 21:59 Last Admin: 09/04/18 20:36 Dose: 5,000 units Documented by: [id number] Cosigned by: [id number] Hydrocortisone (Cortef) 10 mg PO HS [facility] Stop: 10/04/18 20:59 Last Admin: 09/04/18 20:32 Dose: 10 mg Documented by: [id number] Sodium Chloride (1/2 Nss) 1,000 mls @ 80 mls/hr IV .[id number] [facility] Stop: 10/04/18 18:54 Last Admin: 09/04/18 20:11 Dose: 80 mls/hr Documented by: [id number] Insulin Glargine (Lantus Solostar Pen) 28 units SQ BID KATHLEEN Stop: 10/04/18 20:59 Last Admin: 09/04/18 20:38 Dose: 28 units Documented by: [id number] Cosigned by: [id number] Ioversol (Optiray 320 125ml) 116 ml IV ONCE PRN PRN Reason: Interaction Checking Stop: 09/08/18 15:06 Last Admin: 09/04/18 15:07 Dose: 116 ml Documented by: [id number] Pravastatin Sodium (Pravachol) 40 mg PO [facility] Stop: 10/04/18 20:59 Last Admin: 09/04/18 20:33 Dose: 40 mg Documented by: [id number] Discontinued Medications Albuterol (Duoneb) 3 ml NEB NOW STA Stop: 09/04/18 14:11 Last Admin: 09/04/18 14:34 Dose: 3 ml Documented by: [id number] Acetaminophen (Ofirmev) 1,000 mg in 100 mls @ 400 mls/hr IV NOW STA Stop: 09/04/18 14:21 Last Infusion: 09/04/18 15:14 Dose: 0 mls/hr Documented by: [id number] Admin: 09/04/18 14:20 Dose: 400 mls/hr Documented by: [id number] Sodium Chloride (Nss 1000ml) 250 mls @ 999 mls/hr IV .Q16M ONE Stop: 09/04/18 14:25 Last Infusion: 09/04/18 15:14 Dose: 0 mls/hr Documented by: [id number] Admin: 09/04/18 14:21 Dose: 999 mls/hr Documented by: [id number] Sodium Chloride (Nss 1000ml) 500 mls @ 999 mls/hr IV .Q31M ONE Stop: 09/04/18 16:25 Last Infusion: 09/04/18 17:57 Dose: 0 mls/hr Documented by: [id number] Admin: 09/04/18 16:04 Dose: 999 mls/hr Documented by: [id number] Potassium Chloride (K Cosme / Wtr) 10 meq in 100 mls @ 100 mls/hr IV Q1H KATHLEEN Stop: 09/04/18 17:59 Last Infusion: 09/04/18 21:08 Dose: 0 mls/hr Documented by: [id number] Admin: 09/04/18 20:07 Dose: 100 mls/hr Documented by: [id number] Infusion: 09/04/18 17:57 Dose: 0 mls/hr Documented by: [id number] Admin: 09/04/18 16:04 Dose: 100 mls/hr Documented by: [id number] Ceftriaxone Sodium 2,000 mg/ (Dextrose) 70 mls @ 100 mls/hr IV NOW STA Stop: 09/04/18 16:43 Last Infusion: 09/04/18 17:57 Dose: 0 mls/hr Documented by: [id number] Admin: 09/04/18 17:20 Dose: 100 mls/hr Documented by: [id number] Ondansetron HCl (Zofran) 4 mg IV NOW STA Stop: 09/04/18 14:13 Last Admin: 09/04/18 14:20 Dose: 4 mg Documented by: [id number] Medical Decision Making Differential Diagnosis Etiologies such as metabolic, infection, hypo/hyperglycemia, electrolyte abnormalities, cardiac sources, intracerebral event, toxicologic, neurologic, as well as others were entertained. Medical Records Attestation: I reviewed the patient's medical records. Home Medications Current Medication List: was personally reviewed by me Laboratory Data Attestation: I reviewed the patient's lab results. Result diagrams: 09/04/18 13:59 09/04/18 13:59 Lab Results 09/04/18 09/04/18 09/04/18 Range/Units 13:59 13:59 13:59 WBC 12.23 H (4.8-10.8) K/uL RBC 5.13 (4.7-6.1) M/uL Hgb 15.0 (14.0-18.0) g/dL Hct 43.0 (42-52) % MCV 83.8 (80-100) fL MCH 29.2 (25-34) pg MCHC 34.9 (32-36) g/dL RDW Std Deviation 48.4 H (36.4-46.3) fL RDW Coeff of Andrew 15.8 H (11.5-14.5) % Plt Count 338 (130-400) K/uL MPV 9.7 (7.4-10.4) fL Immature Gran % (Auto) 1.1 % Neut % (Auto) 69.7 % Lymph % (Auto) 7.2 % [place] % (Auto) 5.7 % Eos % (Auto) 16.1 % Baso % (Auto) 0.2 % Immature Gran # (Auto) 0.14 H (0.00-0.02) K/uL Neut # (Auto) 8.51 H (1.4-6.5) K/uL Lymph # (Auto) 0.88 L (1.2-3.4) K/uL [place] # (Auto) 0.70 H (0.11-0.59) K/uL Eos # (Auto) 1.97 H (0-0.5) K/uL Baso # (Auto) 0.03 (0-0.2) K/uL PT Cancelled INR Cancelled Sodium 137 (136-145) mmol/L Potassium 2.9 L (3.5-5.1) mmol/L Chloride 104 (98-107) mmol/L Carbon Dioxide 21 (21-32) mmol/L Anion Gap 12.0 H (3-11) BUN 14 (7-18) mg/dl Creatinine 1.34 (0.6-1.4) mg/dl Est Cr Clr Drug Dosing 54.6 ml/min Est GFR ( Amer) 57.6 Est GFR (Non-Af Amer) 49.7 BUN/Creatinine Ratio 10.8 (10-20) Glucose 88 (70-99) mg/dl Calcium 8.9 (8.5-10.1) mg/dl Magnesium (1.8-2.4) mg/dl Total Bilirubin 0.6 (0.2-1) mg/dl AST 11 L (15-37) U/L ALT 14 (12-78) U/L Alkaline Phosphatase 69 (45-117) U/L Troponin I 0.049 H* (0-0.045) ng/ml Total Protein 6.9 (6.4-8.2) gm/dl Albumin 2.9 L (3.4-5.0) gm/dl Globulin 4.0 (2.5-4.0) gm/dl Albumin/Globulin Ratio 0.7 L (0.9-2) TSH 1.830 (0.300-4.500) uIu/ml Urine Color Urine Appearance (Clear) Urine pH (4.5-7.5) Ur Specific [place] (1.000-1.030) Urine Protein (Negative) Urine Glucose (UA) (Negative) Urine Ketones (Negative) Urine Blood (Negative) Urine Nitrite (Negative) Urine Bilirubin (Negative) Urine Urobilinogen (Negative) Ur Leukocyte Esterase (Negative) 09/04/18 09/04/18 09/04/18 Range/Units 13:59 13:59 14:42 WBC (4.8-10.8) K/uL RBC (4.7-6.1) M/uL Hgb (14.0-18.0) g/dL Hct (42-52) % MCV (80-100) fL MCH (25-34) pg MCHC (32-36) g/dL RDW Std Deviation (36.4-46.3) fL RDW Coeff of Andrew (11.5-14.5) % Plt Count (130-400) K/uL MPV (7.4-10.4) fL Immature Gran % (Auto) % Neut % (Auto) % Lymph % (Auto) % [place] % (Auto) % Eos % (Auto) % Baso % (Auto) % Immature Gran # (Auto) (0.00-0.02) K/uL Neut # (Auto) (1.4-6.5) K/uL Lymph # (Auto) (1.2-3.4) K/uL [place] # (Auto) (0.11-0.59) K/uL Eos # (Auto) (0-0.5) K/uL Baso # (Auto) (0-0.2) K/uL PT 11.5 INR 1.1 Sodium (136-145) mmol/L Potassium (3.5-5.1) mmol/L Chloride (98-107) mmol/L Carbon Dioxide (21-32) mmol/L Anion Gap (3-11) BUN (7-18) mg/dl Creatinine (0.6-1.4) mg/dl Est Cr Clr Drug Dosing ml/min Est GFR ( Amer) Est GFR (Non-Af Amer) BUN/Creatinine Ratio (10-20) Glucose (70-99) mg/dl Calcium (8.5-10.1) mg/dl Magnesium 2.1 (1.8-2.4) mg/dl Total Bilirubin (0.2-1) mg/dl AST (15-37) U/L ALT (12-78) U/L Alkaline Phosphatase (45-117) U/L Troponin I Cancelled (0-0.045) ng/ml Total Protein (6.4-8.2) gm/dl Albumin (3.4-5.0) gm/dl Globulin (2.5-4.0) gm/dl Albumin/Globulin Ratio (0.9-2) TSH (0.300-4.500) uIu/ml Urine Color Urine Appearance (Clear) Urine pH (4.5-7.5) Ur Specific [place] (1.000-1.030) Urine Protein (Negative) Urine Glucose (UA) (Negative) Urine Ketones (Negative) Urine Blood (Negative) Urine Nitrite (Negative) Urine Bilirubin (Negative) Urine Urobilinogen (Negative) Ur Leukocyte Esterase (Negative) 09/04/18 Range/Units 16:02 WBC (4.8-10.8) K/uL RBC (4.7-6.1) M/uL Hgb (14.0-18.0) g/dL Hct (42-52) % MCV (80-100) fL MCH (25-34) pg MCHC (32-36) g/dL RDW Std Deviation (36.4-46.3) fL RDW Coeff of Andrew (11.5-14.5) % Plt Count (130-400) K/uL MPV (7.4-10.4) fL Immature Gran % (Auto) % Neut % (Auto) % Lymph % (Auto) % [place] % (Auto) % Eos % (Auto) % Baso % (Auto) % Immature Gran # (Auto) (0.00-0.02) K/uL Neut # (Auto) (1.4-6.5) K/uL Lymph # (Auto) (1.2-3.4) K/uL [place] # (Auto) (0.11-0.59) K/uL Eos # (Auto) (0-0.5) K/uL Baso # (Auto) (0-0.2) K/uL PT INR Sodium (136-145) mmol/L Potassium (3.5-5.1) mmol/L Chloride (98-107) mmol/L Carbon Dioxide (21-32) mmol/L Anion Gap (3-11) BUN (7-18) mg/dl Creatinine (0.6-1.4) mg/dl Est Cr Clr Drug Dosing ml/min Est GFR ( Amer) Est GFR (Non-Af Amer) BUN/Creatinine Ratio (10-20) Glucose (70-99) mg/dl Calcium (8.5-10.1) mg/dl Magnesium (1.8-2.4) mg/dl Total Bilirubin (0.2-1) mg/dl AST (15-37) U/L ALT (12-78) U/L Alkaline Phosphatase (45-117) U/L Troponin I (0-0.045) ng/ml Total Protein (6.4-8.2) gm/dl Albumin (3.4-5.0) gm/dl Globulin (2.5-4.0) gm/dl Albumin/Globulin Ratio (0.9-2) TSH (0.300-4.500) uIu/ml Urine Color Yellow Urine Appearance Clear (Clear) Urine pH 5.0 (4.5-7.5) Ur Specific [place] 1.031 H (1.000-1.030) Urine Protein Negative (Negative) Urine Glucose (UA) Negative (Negative) Urine Ketones Negative (Negative) Urine Blood Negative (Negative) Urine Nitrite Negative (Negative) Urine Bilirubin Negative (Negative) Urine Urobilinogen Negative (Negative) Ur Leukocyte Esterase Negative (Negative) Imaging Data Radiologist's Impression: Radiology results as stated below per my review and the radiologist's interpretation: XR chest 1V portable CLINICAL HISTORY: 78 years-old Male presenting with weakness. TECHNIQUE: Portable upright AP view of the chest was obtained. COMPARISON: 07/25/2018. FINDINGS: Left subclavian pacer with leads to the right atrium and right ventricular apex. Atherosclerosis of aortic arch. Cardiac silhouette moderately enlarged. Diffusely coarsened lung markings. Right perihilar and right basilar added density stable to slightly increased from prior. Trace pleural effusions are not excluded. No pneumothorax. Degenerative changes of the thoracic spine. Upper abdomen normal. IMPRESSION: 1. Added density in the right perihilar and right basilar regions may indicate a developing infiltrate, atelectasis, or less likely asymmetric mild edema. 2. Cardiomegaly without overt evidence of volume overload. Electronically signed by: Hong Alvarez M.D. 09/04/2018 2:[address] OF THE ABDOMEN AND PELVIS WITH CONTRAST CLINICAL HISTORY: Right lower quadrant pain, diarrhea and weakness. COMPARISON STUDY: CT of the abdomen and pelvis January 30, 2018. TECHNIQUE: Following IV administration of 116 mL of Optiray-320, axial images of the abdomen and pelvis were obtained from the lung bases to the proximal femurs. Images were reviewed in the axial, sagittal, and coronal planes. IV contrast was administered without complication. Automated exposure control was utilized for the study. A dose lowering technique was utilized adhering to the principles of ALARA. FINDINGS: The chest will be reported separately. Note is made of suspected focal fat along the falciform ligament. There is no peripancreatic or pericholecystic infiltration. The spleen, adrenal glands and kidneys are unremarkable with exception of scarring within the mid to lower pole the left kidney. There is no hydronephrosis or hydroureter. There is no biliary or pancreatic ductal dilatation. No pneumatosis, free air or portal venous gas. The appendix is at the upper limits of normal for caliber, measuring 6 mm. The appendix is fluid- filled. There is prominent enhancement of the appendiceal tip shown on image 291 of [id number]. There is no adjacent infiltration. There is no abscess. The prostate is moderately enlarged. Mild bladder wall thickening is noted. Colonic diverticulosis is present without evidence for acute diverticulitis. There are no suspicious osseous lesions. Fat-containing left inguinal hernia is present. IMPRESSION: 1. Prominent enhancement of the appendiceal tip. No periappendiceal infiltration. Caliber of appendix at the upper limits of normal. This enhancement is nonspecific and could reflect early tip appendicitis or an appendiceal lesion. Surgical consultation is recommended. 2. No bowel obstruction. Electronically signed by: Lee Delgado M.D. 09/04/2018 3:[address] angio chest PE protocol CT DOSE: 2416.91 mGy.cm HISTORY: 78 years-old Male with PE, weakness, sob. Acute shortness of breath with weakness TECHNIQUE: Multiple CTA images of the chest were obtained after the intravenous administration of 116 ml Optiray 320. Coronal and sagittal MIPS were obtained from the axial data set and were submitted for review. All measurements were obtained according to NASCET criteria. A dose lowering technique was utilized adhering to the principles of ALARA. COMPARISON: CT abdomen and pelvis of same day, chest CT 10/26/2016 FINDINGS: CTA: Cardiomegaly. No pericardial effusion. Left subclavian pacer is noted with leads overlying the right atrium and right ventricle. Extensive coronary arterial calcifications. No thoracic aortic aneurysm or dissection. Severe mixed plaque formation of the thoracic aortic arch with patency of the imaged great vessels. The pulmonary arterial tree is opacified to level of the subsegmental branches. The distal lobar, segmental and subsegmental branches however are suboptimally evaluated secondary to respiratory motion artifact. No definite filling defects identified to suggest pulmonary thromboembolic disease. CT CHEST: No focal thyroid nodule. Mildly enlarged 10 mm right paratracheal lymph node, nonspecific. Prominent AP window and subcarinal lymph nodes are also present. Calcified left hilar lymph nodes compatible with prior granulomatous disease. Trace right pleural effusion. No pneumothorax. Bilateral subpleural reticular opacities redemonstrated suggestive of mild scarring. There is moderate bilateral bronchial wall thickening. Patchy bronchovascular distribution of consolidative opacities noted within the right upper lobe with subsegmental consolidation of the right middle lobe. Dependent bibasilar groundglass densities suggest atelectasis. Subsegmental consolidation of the inferior segment lingula. Central airways appear to be patent. The previously described scattered solid pulmonary nodules are not definitively seen on today's study. Hepatic steatosis. Soft tissues are unremarkable. Bones appear intact. Degenerative changes of the shoulders and spine. IMPRESSION: 1. Study is limited secondary to respiratory motion artifact. No definite evidence of pulmonary thromboembolic disease. 2. Patchy opacities of the right upper lobe are suggestive of a nonspecific infectious or inflammatory pneumonitis. Additional bibasilar opacities are suggestive of probable atelectasis. 3. Cardiomegaly. 4. Hepatic steatosis. The above report was generated using voice recognition software. It may contain grammatical, syntax or spelling errors. Electronically signed by: Obey Emerson M.D. 09/04/2018 3:[address] head/brain wo con CLINICAL HISTORY: 78 years-old Male with headache. Acute headache TECHNIQUE: Multiple axial CT images of the head were obtained without contrast. A dose lowering technique was utilized adhering to the principles of ALARA COMPARISON: Head CT 04/13/2013. FINDINGS: No acute intracranial hemorrhage, midline shift, intracranial mass, hydrocephalus, territorial ischemia or abnormal extra-axial collection. Age- related involutional changes with ex vacuo ventriculomegaly. Unchanged calcifications about the lentiform nuclei bilaterally. Patchy white matter hypodensities suggest chronic microvascular ischemic disease. Cerebral vascular calcifications are noted. The calvarium is intact. Severe mucosal thickening of the ethmoid air cells. Moderate mucoperiosteal thickening throughout the remaining paranasal sinuses. Soft tissues and orbits are unremarkable. Prior bilateral cataract repair. IMPRESSION: No acute intracranial abnormality identified. The above report was generated using voice recognition software. It may contain grammatical, syntax or spelling errors. Electronically signed by: Obey Emerson M.D. 09/04/2018 3:15 PM ECG Data Attestation: I personally reviewed and interpreted this ECG as follows: Indication: nausea Rate (beats per minute): 88 Rhythm: sinus rhythm Findings: + other (repolarization changes), + RBBB and + left axis deviation Comparison ECG Date: from (07/27/18) Change: no significant change (repolarization changes appear similar ) Blood Pressure Blood Pressure Findings: Elevated blood pressure Blood Pressure Disposition: further management by hospitalist ZACHERY Narrative Patient is a 78-year-old gentleman with a past medical history significant for atrial fibrillation, CAD, CKD, pneumonia, Tena's thyroiditis, adrenal insufficient, diabetes presenting today with a complaint of nausea reported fever along with some headache and vomiting. States he has not really eaten week. Vitals are unremarkable upon arrival. No trauma has been reported. Reports feeling feverish at home but no objective temperature noted. Some right lower quadrant pain noted and significant nauseous feeling. Endorses some "vomiting "but it seems like this is almost more posttussive. Complains of a headache almost daily but does not appear grossly meningitic. No new neurological symptoms noted. CT the head was completed but I doubt this is acute CVA, meningitis, intracranial hemorrhage, intercranial mass. Not having significant URI symptoms. Slight expiratory wheezing given DuoNeb here. Given his chronic medical history of CT of the chest and abdomen pelvis was completed. Given some IV fluids and Zofran to help with symptoms as well. Basic labs obtained and C. difficile ordered. EKG appears similar to previous and a very small detected troponin is noted as a history of chronic troponin elevation. Notable hypo-kalemia of 2.9 somewhat concerning given his history of adrenal in sufficiency. CT the head is within normal limits. CT of the chest shows some right upper lobe inflammation pneumonitis versus infectious of etiology. Patient's abdominal CT shows appendiceal tip enhancement but no significant surrounding infiltration. Discussed this with surgery. Given potassium IV supplementation. Patient recently treated for pneumonia last month and does complain of using some oxygen and increased shortness of breath with the CT findings we will treat with ceftriaxone at this time. I do believe observation in the hospital is warranted and discussed with the hospitalist. Impression & Plan Hypokalemia, Right upper lobe pneumonia, Abdominal pain Discharge Plan Visit Data *Final* Discharge Date/Time: 09/04/18 17:56 Chief Complaint: Illness Stated Complaint: VOMITING,FEVER ED Provider: Tony Francis Discharge Problem: Hypokalemia, Right upper lobe pneumonia, Abdominal pain Patient Disposition: Admitted As Inpatient Discharge Instructions Interventions: ED Discharge Assessment Last Done: 09/04/18 17:56 Discharge Problem: Right upper lobe pneumonia Qualifiers: Pneumonia type: due to unspecified organism Qualified Code(s): J18.1 - Lobar pneumonia, unspecified organism Abdominal pain Qualifiers: Abdominal location: unspecified location Qualified Code(s): R10.9 - Unspecified abdominal pain The scribe's documentation has been prepared under my direction and personally reviewed by me in its entirety. I confirm that the note above accurately reflects all work, treatment, procedures, and medical decision making performed by me.
[2018-09-04 16:08] LABS: Appearance Urine Clear (Clear); Bilirubin Urine Negative (Negative); Blood Urine Negative (Negative); Color Urine Yellow; Glucose Urine UA Negative (Negative); Ketones Urine Negative (Negative); Leukocyte Esterase Urine Negative (Negative); Nitrite Urine Negative (Negative); Protein Urine Negative (Negative); Specific Gravity Urine 1.031 (1.000-1.030); Urobilinogen Urine Negative (Negative)
--- NOTE | 2018-09-04 17:01 | History & Physical Report ---
Date of Service September 04, 2018 Assessment & Plan (1) Abdominal pain: Uncertain etiology, also with n/v/d, fevers UA neg CT AP noted for possible appendicial tip inflammation, awaiting surgical c/s Mildly elevated WBC Blood cx pending Cdiff and stool cx neg CT head neg for acute Possible pneumonitis noted on CT chest Started on ceftriaxone in the ED, will continue for now NPO until surgical c/s, if no plans for OR pt can have a DM diet of clears and ADAT (2) Hypokalemia: Issue at baseline and takes PO at home Replaced in the ED, monitor on tele (3) Elevated troponin: Chronic issue Baseline is 0.03-0.1 and trop is 0.049 on admission (4) BPH (benign prostatic hyperplasia): continue home meds (5) Anxiety: continue home meds (6) Depression: continue home meds (7) Diabetic neuropathy: continue home meds (8) Diabetes: continue home aspart SSI PRN A1c pending (9) Adrenal insufficiency: continue home meds If planning for OR, may need t/c stress dose steroids (10) Tena's thyroiditis: continue home meds TSH WNL (11) Asthma: PRN O2 Possibly supposed to be using continuous at baseline but has not Continue to assess (12) Combined systolic and diastolic congestive heart failure: continue home meds No signs of fluid overload Monitor with IVF (13) Hyperlipidemia: continue home meds (14) History of non-ST elevation myocardial infarction (NSTEMI): Pt denies hx of NC, CVA, stents, PAD, TIA Plavix listed in home meds, however pt and do not think pt is taking this Was listed on recent H&P and d/c summary Pharmacy shows that pt has not filled Hold for now, but will need clarification prior to d/c (15) Hypertension: continue home meds (16) Chronic renal insufficiency: Cr 1.3 on admission (17) DVT prophylaxis: SCDs, Heparin for DVT proph History of Present Illness Primary Care Provider: Maegan Delgado MD 78 y/o M with multiple medical complaints. Pt states that he has been having abd pain, n/v intermittently for weeks. He would have days that he felt fine and other days where he could not eat. This has greatly increased over the last week or so and he has not been able to tolerate PO for about 5 days. He has been able to take his meds with sips of water, but if he tries to eat any food he has n/v after just 1-2 bites. His abd pain is lower abd. He has had a frontal headache for the last 5 days. He is not one to usually have headaches. He has had diarrhea for the last 5-7 days. No blood noted. He has been SOB with exertion. He has PRN O2 at home that he has been using when he becomes SOB and this helps. Son states that he was supposed to use the O2 continuously after his recent admission, but he does not. He states he has been urinating, but that his urine is orange, which is new for him. No burning or pain with urination. He has been having fevers, but temp not checked. Pt denies chest pain, LE pain or swelling. Pt given IVF, abx, K in the ED. He is having L forearm burning with the K administration, but he is otherwise feeling better. His headache has resolved and he does not feel nauseated. Abd pain only with palpation. No diarrhea since arrival to the ED. Allergies Allergy/AdvReac Type Severity Reaction Status Date / Time aspirin Allergy Unknown DOES NOT Verified 09/04/18 14:38 TAKE D/T ASTHMA Home Medications Home Medications Medication Instructions Recorded Confirmed Type albuterol sulfate 2 puff INHALATION QID PRN 01/30/18 09/04/18 History budesonide-formoterol 2 puff INHALATION BID 01/30/18 09/04/18 History bupropion HCl 150 mg PO QAM 01/30/18 09/04/18 History clopidogrel 75 mg PO QAM 01/30/18 09/04/18 History fenofibrate nanocrystallized 145 mg PO HS 01/30/18 09/04/18 History finasteride 5 mg PO QAM 01/30/18 09/04/18 History furosemide 20 mg PO QAM 01/30/18 09/04/18 History hydrocortisone 10 mg PO HS 01/30/18 09/04/18 History hydrocortisone 20 mg PO QAM 01/30/18 09/04/18 History insulin asp prt-insulin aspart 45 unit SUBCUT BID 01/30/18 09/04/18 History levothyroxine 75 mcg PO QAM 01/30/18 09/04/18 History metoprolol succinate 25 mg PO QAM 01/30/18 09/04/18 History potassium chloride 20 meq PO QAM 01/30/18 09/04/18 History zafirlukast 20 mg PO BID 01/30/18 09/04/18 History escitalopram oxalate [Lexapro] 10 mg PO QAM 07/25/18 09/04/18 History gabapentin [Neurontin] 300 mg PO QAM 07/25/18 09/04/18 History omeprazole 20 mg PO QAM 07/25/18 09/04/18 History pravastatin 40 mg PO HS 07/25/18 09/04/18 History acetaminophen [Tylenol Extra 500 mg PO Q6H PRN 09/04/18 09/04/18 History Strength] prednisone 9 mg PO QAM 09/04/18 09/04/18 History Past Med/Surg History Medical History Asthma (Chronic 07/01/12) NSTEMI, initial episode of care CHF (congestive heart failure) Diabetes Family History Father Stroke Other Family history non-contributory Social History Preferred Language: Greek Communication Ability: Effective Beliefs That Will Affect Care: None Current Living Situation: Spouse Feels Safe at Home: Yes Smoking Status: Never smoker Hx Alcohol Use: No Hx Substance Use: No Review of Systems Review of Systems: Pertinent positives and negatives reviewed in HPI--all others negative Physical Exam Constitutional: WD/WN, vitals as above Eyes: normal visual barrios by confrontation and + anicteric sclerae Neck: normal visual inspection and trachea midline Respiratory: normal respiratory effort, lungs clear to auscultation Cardiovascular: Rate/Rhythm: regular rate and regular rhythm Gastrointestinal (Abdomen): Inspection/Auscultation: abdomen not distended Percussion/Palpation: + abdomen tender (diffuse, most in RLQ and suprapubic regions) and abdomen soft Musculoskeletal: Head/Neck/Chest: normocephalic and head atraumatic negative for edema, peripheral pulses intact Skin: no rashes, warm and dry Neurologic: awake; not confused Speech / Cognition: normal speech Psychiatric: A+Ox3, euthymic affect Results & Data Vital Signs (Past 12 Hours) Vital Signs Temp Pulse Pulse Resp BP BP Pulse Ox 09/04/18 15:30 83 16 158/64 H 95 09/04/18 14:34 88 18 97 09/04/18 13:17 36.5 C 83 18 120/64 97 Diagnostic Findings CXR: ?? R sided PNA CT chest: RUL pneumonitis vs non-infectious inflammation CT head: neg for acute CTAP: Inflamed appendicial tips Code Status & VTE Plan Code Status DNR/DNI per pt. and son are present and agree VTE Prophylaxis Plan VTE Prophylaxis will be ordered: Yes PG Care Time/CCT Total # of Minutes Spent Total Time Spent with Patient: Total time spent is greater than 50% in coordination of care (as documented) at patient's floor/unit and/or counseling patient: (1) Abdominal pain Abdominal location: unspecified location Qualified Code(s): R10.9 - Unspecified abdominal pain
--- NOTE | 2018-09-04 17:45 | Surgery Consultation ---
Date of Consultation September 04, 2018 Assessment & Plan (1) Abdominal pain: pt is a 78 year-old male who presents to Er with 5 days history abdominal pain with nausea and vomiting, diarrhea, IMP: abdominal pain, possible appendicitis, pneumonia I agree with hospitalist treatment plans, NPO, IV fluid correct low K, IV antibiotic, repeat labs in am, I also D/W pt and his family members possible do diagnostic laparoscopy if pt's symptoms are worse, they understood, agree with the plan, I answered all questions, will F/U History of Present Illness History of Present Illness CC: lower abdominal pain, 78 y/o M with multiple medical complaints. Pt states that he has been having abd pain, n/v intermittently for weeks. He would have days that he felt fine and other days where he could not eat. This has greatly increased over the last week or so and he has not been able to tolerate PO for about 5 days. He has been able to take his meds with sips of water, but if he tries to eat any food he has n/v after just 1-2 bites. His abd pain is lower abd. He has had a frontal headache for the last 5 days. He is not one to usually have headaches. He has had diarrhea for the last 5-7 days. No blood noted. He has been SOB with exertion. He has PRN O2 at home that he has been using when he becomes SOB and this helps. Son states that he was supposed to use the O2 continuously after his recent admission, but he does not. He states he has been urinating, but that his urine is orange, which is new for him. No burning or pain with urination. He has been having fevers, but temp not checked. Pt denies chest pain, LE pain or swelling. Pt given IVF, abx, K in the ED. He is having L forearm burning with the K administration, but he is otherwise feeling better. His headache has resolved and he does not feel nauseated. Abd pain only with palpation. No diarrhea since arrival to the ED. I ( Rahul Ortiz MD) reviewed pt's H/P with pt and his and his son at ER bedside, now pt said he feels better, less abdominal pain, no nausea, no vomiting, pt is still have some diarrhea this morning, no diarrhea at ER. denies fever. I reviewed CT scan- IMPRESSION: 1. Prominent enhancement of the appendiceal tip. No periappendiceal infiltration. Caliber of appendix at the upper limits of normal. This enhancement is nonspecific and could reflect early tip appendicitis or an appendiceal lesion. Surgical consultation is recommended. 2. No bowel obstruction. Allergies Allergy/AdvReac Type Severity Reaction Status Date / Time aspirin Allergy Unknown DOES NOT Verified 09/04/18 14:38 TAKE D/T ASTHMA Home Medications Home Medications Medication Instructions Recorded Confirmed Type albuterol sulfate 2 puff INHALATION QID PRN 01/30/18 09/04/18 History budesonide-formoterol 2 puff INHALATION BID 01/30/18 09/04/18 History bupropion HCl 150 mg PO QAM 01/30/18 09/04/18 History clopidogrel 75 mg PO QAM 01/30/18 09/04/18 History fenofibrate nanocrystallized 145 mg PO HS 01/30/18 09/04/18 History finasteride 5 mg PO QAM 01/30/18 09/04/18 History furosemide 20 mg PO QAM 01/30/18 09/04/18 History hydrocortisone 10 mg PO HS 01/30/18 09/04/18 History hydrocortisone 20 mg PO QAM 01/30/18 09/04/18 History insulin asp prt-insulin aspart 45 unit SUBCUT BID 01/30/18 09/04/18 History levothyroxine 75 mcg PO QAM 01/30/18 09/04/18 History metoprolol succinate 25 mg PO QAM 01/30/18 09/04/18 History potassium chloride 20 meq PO QAM 01/30/18 09/04/18 History zafirlukast 20 mg PO BID 01/30/18 09/04/18 History escitalopram oxalate [Lexapro] 10 mg PO QAM 07/25/18 09/04/18 History gabapentin [Neurontin] 300 mg PO QAM 07/25/18 09/04/18 History omeprazole 20 mg PO QAM 07/25/18 09/04/18 History pravastatin 40 mg PO HS 07/25/18 09/04/18 History acetaminophen [Tylenol Extra 500 mg PO Q6H PRN 09/04/18 09/04/18 History Strength] prednisone 9 mg PO QAM 09/04/18 09/04/18 History Patient History Medical History Asthma (Chronic 07/01/12) NSTEMI, initial episode of care CHF (congestive heart failure) Diabetes Family History Father Stroke Other Family history non-contributory Social History Preferred Language: Bulgarian Communication Ability: Effective Beliefs That Will Affect Care: None Current Living Situation: Spouse Other Information That Helps Us Care for You: No Feels Safe at Home: Yes Safety Concerns: Feels Safe At This Time Smoking Status: Never smoker Hx Alcohol Use: No Hx Substance Use: No Review of Systems Review of Systems: All systems reviewed & are unremarkable except as noted in HPI & below Constitutional: as per Subjective / HPI Ear, Nose, Mouth, Throat: as per Subjective / HPI Respiratory: as per Subjective / HPI pneumonia, asthma Cardiovascular: as per Subjective / HPI Additional Comments: NSTEMI, HTN, CHF, pacemaker, sick sinus syndrome Gastrointestinal: as per Subjective / HPI GERD, abdominal pain Genitourinary: + as per Subjective / HPI Integumentary: as per Subjective / HPI Neurologic: as per Subjective / HPI Psychiatric: as per Subjective / HPI anxiety, depression Endocrine: as per Subjective / HPI DM, adrenal insufficiency Hematologic / Lymphatic: as per Subjective / HPI Physical Exam Constitutional: WD/WN, vitals as above well developed and well nourished ENMT: external ear and nose normal, oropharynx normal Neck: trachea midline, no thyromegaly Respiratory: normal respiratory effort, lungs clear to auscultation normal respiratory effort Cardiovascular: RRR, no murmur, no edema Rate/Rhythm: regular rate and regular rhythm Heart Sounds: normal S1 and normal S2 Gastrointestinal (Abdomen): normal bowel sounds, soft, nontender, no hepatosplenomegaly soft, some tenderness at lower abdomen, no distend, no rebound pain, BS + Neurologic: patellar DTR's 2+ bilat, sensation intact Psychiatric: A+Ox3, euthymic affect Orientation: alert and oriented x 3 Lymphatic: no cervical or axillary lymphadenopathy Results & Data Vital Signs (Past 12 Hours) Vital Signs Temp Pulse Pulse Resp BP BP Pulse Ox 09/04/18 17:01 92 H 13 116/61 95 09/04/18 17:00 79 15 94 06/17/19 16:30 78 19 98/57 L 96 09/04/18 16:02 76 18 104/77 95 09/04/18 16:00 96 09/04/18 15:30 86 83 27 H 158/64 H 94 09/04/18 15:17 95 H 19 158/64 H 95 09/04/18 15:16 88 27 H 95 09/04/18 14:34 88 18 97 09/04/18 14:30 84 17 09/04/18 14:25 94 H 21 09/04/18 13:17 36.5 C 83 18 120/64 97 Laboratory Results Abnormal lab results 09/04/18 09/04/18 09/04/18 Range/Units 13:59 13:59 16:02 WBC 12.23 H (4.8-10.8) K/uL RDW Std Deviation 48.4 H (36.4-46.3) fL RDW Coeff of Andrew 15.8 H (11.5-14.5) % Immature Gran # (Auto) 0.14 H (0.00-0.02) K/uL Neut # (Auto) 8.51 H (1.4-6.5) K/uL Lymph # (Auto) 0.88 L (1.2-3.4) K/uL [place] # (Auto) 0.70 H (0.11-0.59) K/uL Eos # (Auto) 1.97 H (0-0.5) K/uL Potassium 2.9 L (3.5-5.1) mmol/L Anion Gap 12.0 H (3-11) AST 11 L (15-37) U/L Troponin I 0.049 H* (0-0.045) ng/ml Albumin 2.9 L (3.4-5.0) gm/dl Albumin/Globulin Ratio 0.7 L (0.9-2) Ur Specific [place] 1.031 H (1.000-1.030) Diagnostic Findings CT OF THE ABDOMEN AND PELVIS WITH CONTRAST CLINICAL HISTORY: Right lower quadrant pain, diarrhea and weakness. COMPARISON STUDY: CT of the abdomen and pelvis January 30, 2018. TECHNIQUE: Following IV administration of 116 mL of Optiray-320, axial images of the abdomen and pelvis were obtained from the lung bases to the proximal femurs. Images were reviewed in the axial, sagittal, and coronal planes. IV contrast was administered without complication. Automated exposure control was utilized for the study. A dose lowering technique was utilized adhering to the principles of ALARA. FINDINGS: The chest will be reported separately. Note is made of suspected focal fat along the falciform ligament. There is no peripancreatic or pericholecystic infiltration. The spleen, adrenal glands and kidneys are unremarkable with exc eption of scarring within the mid to lower pole the left kidney. There is no hydronephrosis or hydroureter. There is no biliary or pancreatic ductal dilatation. No pneumatosis, free air or portal venous gas. The appendix is at the upper limits of normal for caliber, measuring 6 mm. The appendix is fluid- filled. There is prominent enhancement of the appendiceal tip shown on image 291 of 461. There is no adjacent infiltration. There is no abscess. The prostate is moderately enlarged. Mild bladder wall thickening is noted. Colonic diverticulosis is present without evidence for acute diverticulitis. There are no suspicious osseous lesions. Fat-containing left inguinal hernia is present. IMPRESSION: 1. Prominent enhancement of the appendiceal tip. No periappendiceal infiltration. Caliber of appendix at the upper limits of normal. This enhancement is nonspecific and could reflect early tip appendicitis or an appendiceal lesion. Surgical consultation is recommended. 2. No bowel obstruction. CT angio chest PE protocol CT DOSE: 2416.91 mGy.cm HISTORY: 78 years-old Male with PE, weakness, sob. Acute shortness of breath with weakness TECHNIQUE: Multiple CTA images of the chest were obtained after the intravenous administration of 116 ml Optiray 320. Coronal and sagittal MIPS were obtained from the axial data set and were submitted for review. All measurements were obtained according to NASCET criteria. A dose lowering technique was utilized adhering to the principles of ALARA. COMPARISON: CT abdomen and pelvis of same day, chest CT 10/26/2016 FINDINGS: CTA: Cardiomegaly. No pericardial effusion. Left subclavian pacer is noted with leads overlying the right atrium and right ventricle. Extensive coronary arterial calcifications. No thoracic aortic aneurysm or dissection. Severe mixed plaque formation of the thoracic aortic arch with patency of the imaged great vessels. The pulmonary arterial tree is opacified to level of the subsegmental branches. The distal lobar, segmental and subsegmental branches however are suboptimally evaluated secondary to respiratory motion artifact. No definite filling defects identified to suggest pulmonary thromboembolic disease. CT CHEST: No focal thyroid nodule. Mildly enlarged 10 mm right paratracheal lymph node, nonspecific. Prominent AP window and subcarinal lymph nodes are also present. Calcified left hilar lymph nodes compatible with prior granulomatous disease. Trace right pleural effusion. No pneumothorax. Bilateral subpleural reticular opacities redemonstrated suggestive of mild scarring. There is moderate bilateral bronchial wall thickening. Patchy bronchovascular distribution of consolidative opacities noted within the right upper lobe with subsegmental consolidation of the right middle lobe. Dependent bibasilar groundglass densities suggest atelectasis. Subsegmental consolidation of the inferior segment lingula. Central airways appear to be patent. The previously described scattered solid pulmonary nodules are not definitively seen on today's study. Hepatic steatosis. Soft tissues are unremarkable. Bones appear intact. Degenerative changes of the shoulders and spine. IMPRESSION: 1. Study is limited secondary to respiratory motion artifact. No definite evidence of pulmonary thromboembolic disease. 2. Patchy opacities of the right upper lobe are suggestive of a nonspecific infectious or inflammatory pneumonitis. Additional bibasilar opacities are suggestive of probable atelectasis. 3. Cardiomegaly. 4. Hepatic steatosis. (1) Abdominal pain Abdominal location: unspecified location Qualified Code(s): R10.9 - Unspecified abdominal pain
[2018-09-04] MEDS ORDERED: GLUCAGON FOR INJ 1 MG VIAL SQ PRN (18:55)
[2018-09-04] MEDS ORDERED: MAGNESIUM HYDROXIDE SUSP 30 ML UDC PO PRN (18:55)
[2018-09-04] MEDS ORDERED: ONDANSETRON INJ 2 MG/ML 2 ML VIAL IV PRN (18:55)
[2018-09-04] MEDS ORDERED: ACETAMINOPHEN 500 MG TAB PO PRN (18:55)
[2018-09-04] MEDS ORDERED: ALBUTEROL HFA 8 GM INHALER INH PRN (18:55)
[2018-09-04] MEDS ORDERED: GLUCOSE 40% GEL 15 GM TUBE PO PRN (18:55)
[2018-09-04] MEDS ORDERED: ACETAMINOPHEN 325 MG TAB PO PRN (18:55)
[2018-09-04] MEDS ORDERED: GLUCOSE 10 TABS/TUBE PO PRN (18:55)
[2018-09-04] MEDS ORDERED: CARBOHYDRATES FOR HYPOGLYCEMIA PO PRN (18:55)
[2018-09-04] MEDS ORDERED: DEXTROSE 50% 50 ML SYRINGE IV PRN (18:55)
[2018-09-04] MEDS: SODIUM CHLORIDE 0.45 % 1,000 ML IV SCH (20:11)
[2018-09-04] MEDS ORDERED: Nursing to Pharmacy Communication ONE (20:18)
[2018-09-04] MEDS: HYDROCORTISONE 10 MG TAB PO SCH (20:32)
[2018-09-04] MEDS: FENOFIBRATE NANOCRYSTALLIZED 145 MG TABLET PO SCH (20:33)
[2018-09-04] MEDS: PRAVASTATIN SOD 40 MG TAB PO SCH (20:33)
[2018-09-04] MEDS: BUDESONIDE/FORMOTEROL FUMARATE 160/4.5 60 PUFFS/INHALER INH SCH (20:33)
[2018-09-04] MEDS: HEPARIN SOD 5,000 UNIT/0.5 ML VIAL SQ SCH (20:36)
[2018-09-04] MEDS: INSULIN GLARGINE SOLOSTAR 100 UNITS/ML 3 ML PEN SQ SCH (20:38)
[2018-09-04] MEDS ORDERED: NON-FORMULARY MEDICATION (Zafirlukast 20 MG) PO SCH (21:00)
[2018-09-04] MEDS ORDERED: INSULIN ASPART 100 UNITS/ML 3 ML PEN SC SCH (21:00)
[2018-09-04] MEDS: INSULIN ASPART 100 UNITS/ML 3 ML PEN SC SCH (23:49)
[2018-09-05] MEDS: INSULIN ASPART 100 UNITS/ML 3 ML PEN SC SCH ×4 (05:38→20:37)
[2018-09-05] MEDS: HEPARIN SOD 5,000 UNIT/0.5 ML VIAL SQ SCH ×3 (05:39→20:52)
[2018-09-05] MEDS: LEVOTHYROXINE SODIUM 75 MCG TABLET PO SCH (05:41)
[2018-09-05 07:03] LABS: Basophils # (auto) 0.02 K/uL (0-0.2); Basophils % (auto) 0.2 %; Eosinophils # (auto) 1.32 K/uL (0-0.5); Eosinophils % (auto) 14.1 %; Hemoglobin 12.4 g/dL (14.0-18.0); Immature Granulocytes # (auto) 0.11 K/uL (0.00-0.02); Immature Granulocytes % (auto) 1.2 %; Lymphocytes # (auto) 0.91 K/uL (1.2-3.4); Lymphocytes % (auto) 9.7 %; Mean Corpuscular Hgb Conc 33.5 g/dL (32-36); Mean Corpuscular Volume 83.1 fL (80-100); Mean Platelet Volume 9.6 fL (7.4-10.4); Monocytes % (auto) 6.4 %; Neutrophils # (auto) 6.43 K/uL (1.4-6.5); Neutrophils % (auto) 68.4 %; Platelet Count 323 K/uL (130-400); RDW Coefficient of Variation 15.6 % (11.5-14.5); RDW Standard Deviation 47.6 fL (36.4-46.3); Red Blood Count 4.45 M/uL (4.7-6.1); White Blood Count 9.39 K/uL (4.8-10.8)
[2018-09-05 07:13] LABS: Estimated Average Glucose 192 mg/dl; Hemoglobin A1C 8.3 % (4.5-5.6)
[2018-09-05 07:43] LABS: Calcium 8.4 mg/dl (8.5-10.1); Creatinine Clr Calc Pharmacy 61.8 ml/min; Est GFR (African American) 71.5; Est GFR (Non-African American) 61.7; Potassium 3.3 mmol/L (3.5-5.1)
[2018-09-05] MEDS: SODIUM CHLORIDE 0.45 % 1,000 ML IV SCH (08:41)
[2018-09-05] MEDS ORDERED: predniSONE 1 MG TAB PO SCH (09:00)
[2018-09-05] MEDS ORDERED: predniSONE 5 MG, predniSONE 4 MG PO SCH (09:00)
[2018-09-05] MEDS: POTASSIUM CHLORIDE / WTR 10 MEQ/100 ML PLCT IV SCH ×2 (10:07→13:26)
[2018-09-05 11:39] LABS: BUN Creatinine Ratio 10.7 (10-20); Calcium 8.3 mg/dl (8.5-10.1); Creatinine Clr Calc Pharmacy 62.4 ml/min; Est GFR (African American) 72.3; Est GFR (Non-African American) 62.4; Potassium 3.3 mmol/L (3.5-5.1)
[2018-09-05] MEDS: POTASSIUM CHLORIDE 20 MEQ TABCR PO SCH (13:26)
[2018-09-05] MEDS: HYDROCORTISONE 10 MG TAB PO SCH ×2 (13:26→20:55)
[2018-09-05] MEDS: INSULIN GLARGINE SOLOSTAR 100 UNITS/ML 3 ML PEN SQ SCH ×2 (13:27→20:53)
[2018-09-05] MEDS: FUROSEMIDE 20 MG TAB PO SCH (13:28)
[2018-09-05] MEDS: GABAPENTIN 300 MG CAP PO SCH (13:28)
[2018-09-05] MEDS: ESCITALOPRAM OXALATE 10 MG TAB PO SCH (13:28)
[2018-09-05] MEDS: predniSONE 1 MG TAB PO SCH (13:28)
[2018-09-05] MEDS: predniSONE 5 MG TAB PO SCH (13:28)
[2018-09-05] MEDS: BUDESONIDE/FORMOTEROL FUMARATE 160/4.5 60 PUFFS/INHALER INH SCH ×2 (13:29→20:55)
[2018-09-05] MEDS: METOPROLOL SUCC 25MG EXT REL TAB PO SCH (13:29)
[2018-09-05] MEDS: FINASTERIDE 5 MG TAB PO SCH (13:29)
[2018-09-05] MEDS: PANTOprazole 40 MG TAB PO SCH (13:29)
[2018-09-05] MEDS: BuPROPion XL 150 MG TABCR PO SCH (13:30)
--- NOTE | 2018-09-05 13:51 | Ultrasound Report ---
US duplex mesenteric CLINICAL HISTORY: 78 years-old Male presenting with abdominal pain. TECHNIQUE: Real-time grayscale and color and spectral Doppler ultrasound imaging of the aorta and mes enteric vessels was performed. COMPARISON: None. FINDINGS: Aorta: Patent. Normal waveform. Peak systolic velocity 79 cm/s. Celiac axis: Patent. Normal waveforms. Peak systolic velocity 135 cm/s. Hepatic artery: Patent. Normal waveforms. Peak systolic velocity 146 cm/s. Splenic artery: Not interrogated. Superior mesenteric artery: Patent. Normal waveforms. Peak systolic velocity 239 cm/s proximally. The mid and distal portions of the SMA are obscured. Inferior mesenteric artery: Not interrogated. Reference ranges: Celiac artery: PSV ? 240 cm/s suggests stenosis ? 50%; PSV ? 320 cm/s suggests stenosis ? 70%. Superior mesenteric artery: PSV ? 295 cm/s suggests stenosis ? 50%; PSV ? 400 cm/s suggests stenosis ? 70%. IMPRESSION: 1. No evidence of abdominal aortic aneurysm or hemodynamically significant atherosclerotic plaque. Electronically signed by: Hong Alvarez M.D. 09/05/2018 1:49 PM
[2018-09-05] MEDS ORDERED: Nursing to Pharmacy Communication ONE ×2 (15:23→15:24)
[2018-09-05] MEDS: cefTRIAXone SODIUM 2,000 MG in DEXTROSE 5% 50 ML IV SCH (16:34)
[2018-09-05] MEDS: FENOFIBRATE NANOCRYSTALLIZED 145 MG TABLET PO SCH (20:55)
[2018-09-05] MEDS: PRAVASTATIN SOD 40 MG TAB PO SCH (20:55)
--- NOTE | 2018-09-05 22:56 | Hospitalist Progress Note ---
Date of Service September 05, 2018 Assessment & Plan (1) Abdominal pain: Uncertain etiology, also with n/v/d, fevers UA neg CT AP noted for possible appendicial tip inflammation, awaiting surgical c/s Mildly elevated WBC Blood cx pending Cdiff and stool cx neg CT head neg for acute Possible pneumonitis noted on CT chest Started on ceftriaxone in the ED, will continue for now NPO until surgical c/s, if no plans for OR pt can have a DM diet of clears and ADAT On 09/05 Given patient is having RUQ abdominal pain, will order Mesenteric U/S duplex to assess for chronic mesenteric ischemia or stenosis. Does not appear to be an acute abdomen. Will continue to monitor. (2) Hypokalemia: Issue at baseline and takes PO at home Replaced in the ED, monitor on tele (3) Elevated troponin: Chronic issue Baseline is 0.03-0.1 and trop is 0.049 on admission (4) BPH (benign prostatic hyperplasia): continue home meds (5) Anxiety: continue home meds (6) Depression: continue home meds (7) Diabetic neuropathy: continue home meds (8) Diabetes: continue home aspart SSI PRN A1c 8.3 (9) Adrenal insufficiency: continue home meds If planning for OR, may need t/c stress dose steroids (10) Tena's thyroiditis: continue home meds TSH WNL (11) Asthma: PRN O2 Possibly supposed to be using continuous at baseline but has not Continue to assess (12) Combined systolic and diastolic congestive heart failure: continue home meds No signs of fluid overload Monitor with IVF (13) Hyperlipidemia: continue home meds (14) History of non-ST elevation myocardial infarction (NSTEMI): Pt denies hx of PR, CVA, stents, PAD, TIA Plavix listed in home meds, however pt and do not think pt is taking this Was listed on recent H&P and d/c summary Pharmacy shows that pt has not filled Hold for now. Patient will need to followup with this with PCP. (15) Hypertension: continue home meds (16) Chronic renal insufficiency: Cr 1.3 on admission (17) DVT prophylaxis: SCDs, Heparin for DVT proph Spent 35 minute sin management of patient. Subjective Patient reports having nausea, patient reports it has been days to weeks where he has not been comfortable eating. He states he has been throwing up his food. He also notices for the past 2 weeks watery diarrhea. Patient denies any fever or chills. Review of Systems Review of Systems: Pertinent positives and negatives reviewed in HPI--all others negative Physical Exam Physical Exam: Constitutional: WD/WN, vitals as above Eyes: normal visual barrios by confrontation and + anicteric sclerae Neck: normal visual inspection and trachea midline Respiratory: normal respiratory effort, lungs clear to auscultation Cardiovascular: Rate/Rhythm: regular rate and regular rhythm Gastrointestinal (Abdomen): Inspection/Auscultation: abdomen not distended Percussion/Palpation: + abdomen tender (in RUQ) and abdomen soft Musculoskeletal: Head/Neck/Chest: normocephalic and head atraumatic negative for edema, peripheral pulses intact Skin: no rashes, warm and dry Neurologic: awake; not confused Speech / Cognition: normal speech Psychiatric: A+Ox3, euthymic affect Results & Data Vital Signs (Past 12 Hours) Vital Signs Temp Pulse Resp BP BP Pulse Ox Pulse Ox 09/05/18 19:00 36.4 C L 86 20 174/69 H 97 09/05/18 15:56 36.6 C 94 H 20 177/81 H 95 09/05/18 11:28 36.3 C L 73 20 163/61 H 94 09/05/18 11:23 97 Pulse Ox 09/05/18 19:00 09/05/18 15:56 09/05/18 11:28 09/05/18 11:23 94 PG Care Time/CCT Total # of Minutes Spent Total Time Spent with Patient: Total time spent is greater than 50% in coordination of care (as documented) at patient's floor/unit and/or counseling patient: (1) Abdominal pain Abdominal location: unspecified location Qualified Code(s): R10.9 - Unspecified abdominal pain
[2018-09-06] MEDS: HEPARIN SOD 5,000 UNIT/0.5 ML VIAL SQ SCH ×2 (06:05→14:16)
[2018-09-06] MEDS: LEVOTHYROXINE SODIUM 75 MCG TABLET PO SCH (06:05)
[2018-09-06] MEDS: ESCITALOPRAM OXALATE 10 MG TAB PO SCH (08:05)
[2018-09-06] MEDS: METOPROLOL SUCC 25MG EXT REL TAB PO SCH (08:05)
[2018-09-06] MEDS: GABAPENTIN 300 MG CAP PO SCH (08:05)
[2018-09-06] MEDS: BuPROPion XL 150 MG TABCR PO SCH (08:06)
[2018-09-06] MEDS: PANTOprazole 40 MG TAB PO SCH (08:06)
[2018-09-06] MEDS: FUROSEMIDE 20 MG TAB PO SCH (08:06)
[2018-09-06] MEDS: HYDROCORTISONE 10 MG TAB PO SCH (08:07)
[2018-09-06] MEDS: FINASTERIDE 5 MG TAB PO SCH (08:08)
[2018-09-06] MEDS: predniSONE 1 MG TAB PO SCH (08:08)
[2018-09-06] MEDS: INSULIN GLARGINE SOLOSTAR 100 UNITS/ML 3 ML PEN SQ SCH (08:09)
[2018-09-06] MEDS: predniSONE 5 MG TAB PO SCH (08:09)
[2018-09-06] MEDS: POTASSIUM CHLORIDE 20 MEQ TABCR PO SCH (08:09)
[2018-09-06] MEDS: BUDESONIDE/FORMOTEROL FUMARATE 160/4.5 60 PUFFS/INHALER INH SCH (08:11)
[2018-09-06] MEDS: INSULIN ASPART 100 UNITS/ML 3 ML PEN SC SCH ×2 (08:14→12:15)
[2018-09-06] MEDS ORDERED: LOPERAMIDE HCL 2 MG CAP PO STA (15:49)
[2018-09-06] MEDS: cefTRIAXone SODIUM 2,000 MG in DEXTROSE 5% 50 ML IV SCH (16:24)
--- NOTE | 2018-09-13 11:13 | Discharge Summary ---
Date of Service September 06, 2018 Admission HPI Per Admitting Provider 78 y/o M with multiple medical complaints. Pt states that he has been having abd pain, n/v intermittently for weeks. He would have days that he felt fine and other days where he could not eat. This has greatly increased over the last week or so and he has not been able to tolerate PO for about 5 days. He has been able to take his meds with sips of water, but if he tries to eat any food he has n/v after just 1-2 bites. His abd pain is lower abd. He has had a frontal headache for the last 5 days. He is not one to usually have headaches. He has had diarrhea for the last 5-7 days. No blood noted. He has been SOB with exertion. He has PRN O2 at home that he has been using when he becomes SOB and this helps. Son states that he was supposed to use the O2 continuously after his recent admission, but he does not. He states he has been urinating, but that his urine is orange, which is new for him. No burning or pain with urination. He has been having fevers, but temp not checked. Pt denies chest pain, LE pain or swelling. Pt given IVF, abx, K in the ED. He is having L forearm burning with the K administration, but he is otherwise feeling better. His headache has resolved and he does not feel nauseated. Abd pain only with palpation. No diarrhea since arrival to the ED. Principal Diagnosis acute abdominal pain Discharge Exam Constitutional: WD/WN, vitals as above Eyes: normal visual barrios by confrontation and + anicteric sclerae Neck: normal visual inspection and trachea midline Respiratory: normal respiratory effort, lungs clear to auscultation Cardiovascular: Rate/Rhythm: regular rate and regular rhythm Gastrointestinal (Abdomen): Inspection/Auscultation: abdomen not distended Percussion/Palpation: nontender Musculoskeletal: Head/Neck/Chest: normocephalic and head atraumatic negative for edema, peripheral pulses intact Skin: no rashes, warm and dry Neurologic: awake; not confused Speech / Cognition: normal speech Psychiatric: A+Ox3, euthymic affect Discharge Data Allergies Allergy/AdvReac Type Severity Reaction Status Date / Time aspirin Allergy Unknown DOES NOT Verified 09/04/18 14:38 TAKE D/T ASTHMA Consultations 09/04/18 16:02 ED Decision to Admit Stat 09/04/18 18:55 Consult Case Management - Discharge Planning Routine Ordered Studies 09/04/18 14:07 CT abd pelvis IV con only Stat CT angio chest PE protocol Stat CT head/brain wo con Stat 09/05/18 10:54 US duplex mesenteric Routine Hospital Course (1) Abdominal pain: Uncertain etiology, also with n/v/d, fevers UA neg CT AP noted for possible appendicial tip inflammation, awaiting surgical c/s Mildly elevated WBC Blood cx pending Cdiff and stool cx neg CT head neg for acute Possible pneumonitis noted on CT chest Started on ceftriaxone in the ED, will continue for now NPO until surgical c/s, if no plans for OR pt can have a DM diet of clears and ADAT On 09/05 Given patient is having RUQ abdominal pain, will order Mesenteric U/S duplex to assess for chronic mesenteric ischemia or stenosis. Does not appear to be an acute abdomen. On 09/06 Patient improved. Pain subsided. Patient also is tolerating diet. patient reports for past few weeks he was having nausea, vomiting. Patient will likely need to followup with GI as an outpatient. Will continue to monitor. (2) Hypokalemia: Issue at baseline and takes PO at home Replaced in the ED, monitor on tele (3) Elevated troponin: Chronic issue Baseline is 0.03-0.1 and trop is 0.049 on admission (4) BPH (benign prostatic hyperplasia): continue home meds (5) Anxiety: continue home meds (6) Depression: continue home meds (7) Diabetic neuropathy: continue home meds (8) Diabetes: continue home aspart SSI PRN A1c 8.3 (9) Adrenal insufficiency: continue home meds If planning for OR, may need t/c stress dose steroids (10) Tena's thyroiditis: continue home meds TSH WNL (11) Asthma: PRN O2 Possibly supposed to be using continuous at baseline but has not Continue to assess (12) Combined systolic and diastolic congestive heart failure: continue home meds No signs of fluid overload Monitor with IVF (13) Hyperlipidemia: continue home meds (14) History of non-ST elevation myocardial infarction (NSTEMI): Pt denies hx of RI, CVA, stents, PAD, TIA Plavix listed in home meds, however pt and do not think pt is taking this Was listed on recent H&P and d/c summary Pharmacy shows that pt has not filled Hold for now. Patient will need to followup with this with PCP. (15) Hypertension: continue home meds (16) Chronic renal insufficiency: Cr 1.3 on admission Improved to 1.11 at discharge (17) DVT prophylaxis: SCDs, Heparin for DVT proph Total Time Total Time Spent Total Time Spent (In Minutes): 32 Total Time Includes: Examination of the Patient, Discharge Planning and Medication Reconciliation Discharge Plan Discharge Items Patient Disposition: Home - Self-Care Reason For Visit: HYPOKALEMIA Discharge Diagnosis: Nausea, vomting Discharge Goals: Decrease discomfort Activity: Resume your previous activity Non-emergency contact: Primary Care Provider Call non-emergency contact if: you have any medication questions Follow-up/Referrals: Jewels Streeter CRNP [Nurse Practitioner] - 09/11/18 3:00 pm (A Gas troenterology appointment was made with SERGIO Frank, on TuesdaySeptember 11 at 3:00pm. If you have any questions or need to reschedule, please call the office at [phone]) Maegan Delgado MD [Primary Care Provider] - 09/19/18 2:00 pm (A follow up appointment has been made with your PCP, Dr. Maegan Delgado, on TuesdaySeptember 19 at 2:00pm. If you need to reschedule or have any questions, please call the office at [phone].) Diet: Full liquid Addtl Provider Instructions: Will have you followup with gastroenterlogy as an outpatient. You will likely get a colonoscopy or Upper endoscopy as an outpatient Will also order loperamide PRN. take 1 tablet after every stool. Prescriptions: New loperamide 2 mg capsule 2 mg PO Q3H PRN (Reason: loose stool) Qty: 60 RF: 0 lisinopril 5 mg tablet 5 mg PO DAILY Qty: 30 RF: 0 azithromycin 250 mg tablet See Rx Instructions .ROUTE .COMPLEX Qty: 6 RF: 0 Continued furosemide 40 mg tablet 20 mg PO QAM RF: 0 clopidogrel 75 mg tablet 75 mg PO QAM RF: 0 levothyroxine 75 mcg tablet 75 mcg PO QAM RF: 0 potassium chloride 20 mEq tablet,ER particles/crystals 20 meq PO QAM RF: 0 hydrocortisone 20 mg tablet 20 mg PO QAM RF: 0 zafirlukast 20 mg tablet 20 mg PO BID RF: 0 metoprolol succinate 25 mg tablet extended release 24 hr 25 mg PO QAM RF: 0 albuterol sulfate 90 mcg/actuation HFA aerosol inhaler 2 puff Inhalation QID PRN (Reason: Shortness Of Breath Or Wheezing) RF: 0 finasteride 5 mg tablet 5 mg PO QAM RF: 0 insulin asp prt-insulin aspart 100 unit/mL (70-30) insulin pen 45 unit subcut BID RF: 0 fenofibrate nanocrystallized 145 mg tablet 145 mg PO HS RF: 0 budesonide-formoterol 160-4.5 mcg/actuation HFA aerosol inhaler 2 puff Inhalation BID RF: 0 acetaminophen [Tylenol Extra Strength] 500 mg Tablet 500 mg PO Q6H PRN (Reason: Pain) RF: 0 prednisone 1 mg tablet 9 mg PO QAM RF: 0 gabapentin [Neurontin] 300 mg capsule 300 mg PO QAM RF: 0 escitalopram oxalate [Lexapro] 10 mg tablet 10 mg PO QAM RF: 0 pravastatin 40 mg Tablet 40 mg PO HS RF: 0 omeprazole 20 mg Capsule,Delayed Release(Dr/Ec) 20 mg PO QAM RF: 0 No Action bupropion HCl 150 mg tablet extended release 24 hr 150 mg PO DAILY Qty: 30 RF: 5 hydrocortisone 10 mg tablet 10 mg PO HS Qty: 30 RF: 5 Stand-Alone Forms: [facility] Discharge Orders: Discharge Order (Routine); Ordered 09/06/18 Ordered By: Ministerio Nichols Admission Data Admit Date/Time: 09/04/18 16:56 Attending Provider: Ministerio Nichols Admit Provider: Faye Wilson Primary Care Provider: Maegan Delgado Other Providers: Rahul Ortiz Service: Telemetry Other Interventions: Discharge Summary Assessment (RN) Last Done: 09/06/18 16:48 DC Date/Time DO NOT enter until pt leaves facility: 09/06/18 17:41
== END 2018-09-06 17:41 | disposition home or self-care (01) | DRG 393 ==
LOC: ED 13:13 → SUATTDRO 16:56 → 2N 16:56

== ENCOUNTER 2019-02-20 11:10 | Inpatient (IN) ==
[2019-02-20] MEDS ORDERED: SODIUM CHLORIDE 0.9% 500 ML IV SCH (12:00)
[2019-02-20 12:14] LABS: Basophils # (auto) 0.04 K/uL (0-0.2); Basophils % (auto) 0.3 %; Eosinophils % (auto) 3.2 %; Hematocrit (blood only) 36.4 % (42-52); Hemoglobin 12.3 g/dL (14.0-18.0); Immature Granulocytes # (auto) 0.13 K/uL (0.00-0.02); Mean Corpuscular Hemoglobin 28.7 pg (25-34); Mean Corpuscular Hgb Conc 33.8 g/dL (32-36); Mean Corpuscular Volume 84.8 fL (80-100); Mean Platelet Volume 11.2 fL (7.4-10.4); Monocytes # (auto) 1.38 K/uL (0.11-0.59); Neutrophils # (auto) 9.57 K/uL (1.4-6.5); Neutrophils % (auto) 76.5 %; Platelet Count 311 K/uL (130-400); RDW Coefficient of Variation 18.2 % (11.5-14.5); RDW Standard Deviation 56.6 fL (36.4-46.3); Red Blood Count 4.29 M/uL (4.7-6.1); White Blood Count 12.52 K/uL (4.8-10.8)
[2019-02-20 12:20] LABS: INR 2.2 (0.9-1.1); Prothrombin Time 21.1 Seconds (9.0-12.0)
[2019-02-20 12:22] LABS: Albumin Level 3.4 gm/dl (3.4-5.0); Aspartate Aminotransferase 7 U/L (15-37); BUN Creatinine Ratio 29.1 (10-20); Blood Urea Nitrogen 66 mg/dl (7-18); Calcium 9.1 mg/dl (8.5-10.1); Carbon Dioxide 21 mmol/L (21-32); Chloride 100 mmol/L (98-107); Creatinine Clr Calc Pharmacy 31.1 ml/min; Est GFR (African American) 30.8; Est GFR (Non-African American) 26.5; Glucose 269 mg/dl (70-99); Potassium 4.9 mmol/L (3.5-5.1); Sodium 131 mmol/L (136-145)
--- NOTE | 2019-02-20 12:27 | CT Scan Report ---
CT head/brain wo con CLINICAL HISTORY: intermittent confusion COMPARISON STUDY: 11/23/2018 TECHNIQUE: Axial CT of the brain is performed from the vertex to the skull base. IV contrast was not administered for this examination. A dose lowering technique was utilized adhering to the principles of ALARA. CT DOSE: 690.05 mGycm FINDINGS: No intra or extra-axial mass lesions are visualized. There is no CT evidence of acute cortical infarc tion. There is no evidence of midline shift. There is no acute hemorrhage. No calvarial fractures ar e visualized. There are patchy white matter hypodensities likely on a small vessel basis. There are stable basal ga nglia calcifications. There is no evidence of pathologic ventricular dilatation. Postsurgical changes are present within the maxillary sinuses. There is an exercise mucosal thickenin g. There is left sphenoid and ethmoid sinus mucosal thickening. There is frontal sinus mucosal thicke david and fluid. There is associated sinus wall thickening. IMPRESSION: 1. Worsening pansinus inflammatory change 2. Otherwise no acute intracranial findings Electronically signed by: Star Pro M.D. 02/20/2019 12:26 PM
[2019-02-20 12:33] LABS: Alanine Aminotransferase 14 U/L (12-78); Albumin Globulin Ratio 0.8 (0.9-2); Alkaline Phosphatase 96 U/L (45-117); Bilirubin,Total 0.4 mg/dl (0.2-1); Globulin 4.2 gm/dl (2.5-4.0); Total Protein 7.6 gm/dl (6.4-8.2); Troponin I < 0.015 ng/ml (0-0.045)
[2019-02-20 12:46] LABS: Lyme Ab IgG w/WB Rflx Negative (Negative); Lyme Ab IgM w/WB Rflx Negative (Negative)
--- NOTE | 2019-02-20 13:05 | XRay Report ---
XR chest 1V portable CLINICAL HISTORY: weakness COMPARISON STUDY: 11/23/2018 FINDINGS: The heart is the upper limits of normal in size. There is a left subclavian dual-chamber ce ntral venous pacemaker present. There is no failure. There is no lobar consolidation. There are no pl eural effusions.[ IMPRESSION: No active disease in the chest. Electronically signed by: Star Pro M.D. 02/20/2019 1:03 PM
[2019-02-20 13:06] LABS: Appearance Urine Clear (Clear); Bilirubin Urine Negative (Negative); Blood Urine Negative (Negative); Color Urine Yellow; Glucose Urine UA Negative (Negative); Ketones Urine Negative (Negative); Leukocyte Esterase Urine Negative (Negative); Nitrite Urine Negative (Negative); Protein Urine Negative (Negative); Specific Gravity Urine 1.014 (1.000-1.030); Urobilinogen Urine Negative (Negative)
--- NOTE | 2019-02-20 14:15 | History & Physical Report ---
Date of Service February 20, 2019 Assessment & Plan (1) Lower GI bleed: Patient developed bright red blood per rectum Possible lower GI bleed Ordered for n.p.o., IV Protonix drip, Started with IV Zosyn, empirically, high risk of intestinal bacterial translocation and peritoneal cavity in the setting of colon Ischemia CT abdomen pelvis noncontrast ordered, rule out bowel ischemia Shows no evidence of bowel thickening, chronic diverticulosis without any diverticulitis Possible diverticular bleed? No prior history of colonoscopy Ordered for stat H&H, 2 units of PRBC typed and crossed/PRBC transfusion consent obtained from patient Given patient's extensive coronary artery disease, ischemic cardiomyopathy, goal to keep globin above 10 INR 2.2, patient is on Coumadin for chronic anticoagulation A. fib Order for 10 mg of IV vitamin K stat Repeat H&H, INR, BMP in 4 hours Any evidence of recurrence of GI bleed, patient will need FFP transfusion [facility] gastroenterology consulted, case discussed with on-call gastroenterology Dr. Lindsay-commence continue conservative approach, with correction of coagulopathy, anemia, n.p.o. Protonix drip Given patient's extensive coronary artery disease, ischemic cardiomyopathy with EF of only 39%, high risk for colonoscopy procedure Conservative medical management will be appropriate Patient is transferred to ICU for close monitoring of hemodynamics Plan of care updated to on-call review specialist Acute Renal Failure on Chronic CKD: CKD stage III with creatinine 1.1 Admitted with creatinine 2.2 possible secondary to dehydration GI bleed Ordered to hold diuretics Given IV fluids Repeat creatinine improved to 1.97 Continue to monitor BMP, Caution with IV fluid resuscitation given underlying severe ischemic cardiomyopathy Nephrology consulted Avoid contrast studies /NSAIDs Coronary artery disease: Severe extensive coronary artery disease with multivessel occlusion noted in cardiac cath at [facility] on 04/29/2018: Left main 30% stenosis Left anterior descending 80% stenosis Left circumflex coronary artery 80% stenosis 100% stenosis of the right coronary artery with [id number] collaterals Echocardiogram: 01/23/2019: Basal inferior wall akinetic, mild and apical segment of the inferior wall is hypokinetic, the posterior wall is hypokinetic LV ejection fraction 39% -Caution with IV fluids and PRBC transfusion was on Plavix /aspirin /beta-alex /statin /SHERLYN inhibitor All of the above meds kept on hold secondary to GI bleed If patient needs colonoscopy or GI procedure, will need cardiology evaluation for pre-op cardiac risks assessment Patient follows with [facility] cardiology Dr. Alcantar CHRONIC A. FIB Coumadin discontinued coagulopathy received first with vitamin K, may need FFP in the setting of acute bleeding ADRENAL INSUFFICIENCY On p.o. hydrocortisone chronically 30 mg daily Discontinued Patient started with IV Cardizem 100 mg 3 times daily-for stress response Severe ischemic cardiomyopathy Volume status stable Diuretics kept on hold secondary to acute renal failure GI bleed Caution with IV fluid resuscitation Type 2 diabetes Glycemic management as per ICU protocol Pharmacy consulted Confusion/metabolic encephalopathy Presented with confusion weakness forgetfulness Metabolic encephalopathy in the setting of acute GI bleed lactic acidosis, GI bleed Mental status improved after IV hydration, awake oriented x3 conversing appropriately CT head negative for any acute change CODE STATUS: Full code DVT prophylaxis: SCD and teds avoid pharmacological anticoagulation in the setting of GI bleed Disposition: pt is transferred to ICU for close monitoring of hemodynamics in the setting of active GI bleed/severe underlying comorbidities- coronary artery disease History of Present Illness Had a Chief Complaint: Dizzy spell, confusion Primary Care Provider: Steve Quintero MD This is a 78-year-old male with past medical history of coronary artery disease,CHF with combined systolic and diastolic heart failure, Hypertension, hyperlipidemia, chronic A. fib Sick sinus syndrome status post pacemaker placement Was brought to the ER by family members, as patient was having episodes of confusion, dizzy spell and lightheadedness During my time of interview, patient appears to be appropriate, answering questions, said he has not been feeling well for the past 2 to 3 days, felt dizzy and lightheaded, appetite was very poor Denies of any chest pain, shortness of breath, no palpitation Admission lab showed patient had mild leukocytosis with white count 12.5, hemoglobin 12 / acute renal failure with creatinine elevated to 2.2, baseline hemoglobin 1.1 noted on August 2018 Normal LFTs lactic acid elevated 2.1 Patient had normal ammonia, LFTs CT head, negative for any acute change Chest x-ray shows no acute disease Patient was hypotensive systolic 96/60 Was given NSS at a rate of 125 mL-SBP improved 110 around 8 PM,Nursing reports patient had large bloody bowel movement, right red blood per rectum Patient was reevaluated room room 239 / 1 Patient reports of feeling dizzy and lightheaded after bloody bowel movement, Complaint of chest pain, or shortness of breath No nausea Abdomen soft, bowel sounds active, mild tenderness noted on right lower quadrant Patient reports he did not had any bleeding per rectum or dark tarry stool in the past Does not remember having a colonoscopy in past Allergies Allergy/AdvReac Type Severity Reaction Status Date / Time aspirin Allergy Unknown DOES NOT Verified 02/20/19 14:12 TAKE D/T ASTHMA citric acid AdvReac Verified 02/20/19 14:12 [From [employer]] NSAIDS (Non-Steroidal AdvReac Verified 02/20/19 14:12 Anti-Inflamma sodium bicarbonate AdvReac Verified 02/20/19 14:12 [From [employer]] Home Medications Home Medications Medication Instructions Recorded Confirmed Type albuterol sulfate 2 puff INHALATION QID PRN 01/30/18 02/20/19 History budesonide-formoterol 2 puff INHALATION BID 01/30/18 02/20/19 History metoprolol succinate 25 mg PO QAM 01/30/18 02/20/19 History zafirlukast 20 mg PO BID 01/30/18 02/20/19 History omeprazole 20 mg PO QAM 07/25/18 02/20/19 History pravastatin 40 mg PO HS 07/25/18 02/20/19 History gabapentin 300 mg capsule 300 mg PO HS #90 cap 11/10/18 02/20/19 Rx finasteride 5 mg tablet 5 mg PO QAM #90 tab 11/21/18 02/20/19 Rx acetaminophen [Tylenol] 325 mg PO Q6H PRN 11/23/18 02/20/19 History hydrocortisone 20 mg PO QAM 11/23/18 02/20/19 History pen needle, diabetic 32 gauge x #10 ea 11/30/18 12/25/18 History 5/32" blood sugar diagnostic #200 ea 12/04/18 12/25/18 Rx hydrocortisone 10 mg tablet 10 mg PO HS #90 tab 01/17/19 02/20/19 Rx insulin glargine 100 unit/mL (3 25 units SQ HS #15 ml 01/17/19 02/20/19 Rx mL) subcutaneous pen amiodarone 200 mg PO QAM 02/20/19 02/20/19 History clopidogrel 75 mg PO QAM 02/20/19 02/20/19 History escitalopram oxalate 20 mg PO QAM 02/20/19 02/20/19 History levothyroxine 75 mcg PO QAM 02/20/19 02/20/19 History lisinopril 5 mg PO QAM 02/20/19 02/20/19 History potassium chloride 20 meq PO QAM 02/20/19 02/20/19 History spironolactone 12.5 mg PO QAM 02/20/19 02/20/19 History torsemide 20 mg PO QAM 02/20/19 02/20/19 History warfarin 2.5 mg PO QDD 02/20/19 02/20/19 History 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) Coronary artery disease (Chronic) multi-vessel disease - medical management Depression (Chronic) Diabetic neuropathy (Chronic) GERD (gastroesophageal reflux disease) (Chronic) Tena's thyroiditis (Chronic) History of non-ST elevation myocardial infarction (NSTEMI) (Resolved) Hyperlipidemia (Chronic) Hypertension (Chronic) Mural thrombus of heart (Acute) Noted on echo November 2018 Pacemaker (Chronic) dual chamber Paroxysmal atrial tachycardia (Chronic) Polymyalgia rheumatica (Chronic) Sick sinus syndrome (Chronic) Type 2 diabetes mellitus (Chronic) Vitamin D deficiency (Chronic) Surgical History History of temporal artery biopsy Family History Father Stroke Other Family history non-contributory Social History Preferred Language: [place]ayan Communication Ability: Effective Dental Laboratory Worker Required: No Beliefs That Will Affect Care: None marital status: Current Living Situation: Family Other Information That Helps Us Care for You: No Feels Safe at Home: Yes Safety Concerns: Feels Safe At This Time Smoking Status: Never smoker Hx Alcohol Use: No Hx Substance Use: No caffeine: Yes Seatbelt Use: always Review of Systems Review of Systems: All systems reviewed & are unremarkable except as noted in HPI & below Physical Exam Constitutional: WD/WN, vitals as above no acute distress Eyes: PERRL, conjunctivae normal, anicteric sclerae ENMT: external ear and nose normal, oropharynx normal Neck: trachea midline, no thyromegaly Respiratory: normal respiratory effort, lungs clear to auscultation Cardiovascular: RRR, no murmur, no edema Gastrointestinal (Abdomen): Inspection/Auscultation: normal bowel sounds; abdomen not distended Percussion/Palpation: + abdomen tender (Tenderness on right lower quadrant, no rebound no rigidity) and abdomen soft; no ascites Skin: no rashes, warm and dry Neurologic: PERRL, EOMI, accommodation nl, no face palsy, no dysarthria Psychiatric: A+Ox3, euthymic affect Results & Data Vital Signs (Past 12 Hours) Vital Signs Temp Pulse Pulse Resp BP BP Pulse Ox 02/20/19 13:28 71 16 116/67 02/20/19 11:57 97 02/20/19 11:23 36.9 C 70 18 132/71 97
--- NOTE | 2019-02-20 14:37 | Emergency Department Note ---
Entered by Srikanth Florian acting as a scribe for Danny Austin MD History of Present Illness General Chief complaint: Illness Stated complaint: lethargic Time Seen by Provider: 02/20/19 11:31 Source: patient and family History of Present Illness Provider complaint: weakness Onset (ago): hour(s) 3 Location: head Radiation: non-radiation Pain Consistency: + intermittent Maximum Pain Intensity: 0 Quality: + other (dizziness, light headed, weakness, lethargy ) Associated symptoms: + denies other symptoms, + headaches and + other (no abdominal pain but had slight confusuion ); no cough The patient is an 78 y/o male with a past medical history of CAD, A- fib with RVR, Diabetes, and combined systolic and diastolic CHF, who presents to the emergency department from clinic for evaluation of intermittent weakness that began this morning. The patient states that he is also experiencing dizziness, light headedness, slight confusion that began this morning and a headache since at least yesterday. The family states that the patient was slightly disoriented his morning and confused with the added light headedness and dizziness. She notes that all around the patient has not been feeling very well recently but today was worse though she notes that the patient seems better now. The patient denies a cough, abdominal pain, and any other symptoms. Home Medications Home Medications Medication Instructions Recorded Confirmed Type albuterol sulfate 2 puff INHALATION QID PRN 01/30/18 02/20/19 History budesonide-formoterol 2 puff INHALATION BID 01/30/18 02/20/19 History metoprolol succinate 25 mg PO QAM 01/30/18 02/20/19 History zafirlukast 20 mg PO BID 01/30/18 02/20/19 History omeprazole 20 mg PO QAM 07/25/18 02/20/19 History pravastatin 40 mg PO HS 07/25/18 02/20/19 History gabapentin 300 mg capsule 300 mg PO HS #90 cap 11/10/18 02/20/19 Rx finasteride 5 mg tablet 5 mg PO QAM #90 tab 11/21/18 02/20/19 Rx acetaminophen [Tylenol] 325 mg PO Q6H PRN 11/23/18 02/20/19 History hydrocortisone 20 mg PO QAM 11/23/18 02/20/19 History pen needle, diabetic 32 gauge x #10 ea 11/30/18 12/25/18 History 5/32" blood sugar diagnostic #200 ea 12/04/18 12/25/18 Rx hydrocortisone 10 mg tablet 10 mg PO HS #90 tab 01/17/19 02/20/19 Rx insulin glargine 100 unit/mL (3 25 units SQ HS #15 ml 01/17/19 02/20/19 Rx mL) subcutaneous pen amiodarone 200 mg PO QAM 02/20/19 02/20/19 History clopidogrel 75 mg PO QAM 02/20/19 02/20/19 History escitalopram oxalate 20 mg PO QAM 02/20/19 02/20/19 History levothyroxine 75 mcg PO QAM 02/20/19 02/20/19 History lisinopril 5 mg PO QAM 02/20/19 02/20/19 History potassium chloride 20 meq PO QAM 02/20/19 02/20/19 History spironolactone 12.5 mg PO QAM 02/20/19 02/20/19 History torsemide 20 mg PO QAM 02/20/19 02/20/19 History warfarin 2.5 mg PO QDD 02/20/19 02/20/19 History Allergies Allergy/AdvReac Type Severity Reaction Status Date / Time aspirin Allergy Unknown DOES NOT Verified 02/20/19 14:12 TAKE D/T ASTHMA citric acid AdvReac Verified 02/20/19 14:12 [From [facility]] NSAIDS (Non-Steroidal AdvReac Verified 02/20/19 14:12 Anti-Inflamma sodium bicarbonate AdvReac Verified 02/20/19 14:12 [From [facility]] 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) Coronary artery disease (Chronic) multi-vessel disease - medical management Depression (Chronic) Diabetic neuropathy (Chronic) GERD (gastroesophageal reflux disease) (Chronic) Tena's thyroiditis (Chronic) History of non-ST elevation myocardial infarction (NSTEMI) (Resolved) Hyperlipidemia (Chronic) Hypertension (Chronic) Mural thrombus of heart (Acute) Noted on echo November 2018 Pacemaker (Chronic) dual chamber Paroxysmal atrial tachycardia (Chronic) Polymyalgia rheumatica (Chronic) Sick sinus syndrome (Chronic) Type 2 diabetes mellitus (Chronic) Vitamin D deficiency (Chronic) Surgical History History of temporal artery biopsy Family History Father Stroke Other Family history non-contributory Social History Preferred Language: Icelandic Communication Ability: Effective Senior Security Analyst Required: No Beliefs That Will Affect Care: None marital status: Current Living Situation: Family Other Information That Helps Us Care for You: No Feels Safe at Home: Yes Safety Concerns: Feels Safe At This Time Smoking Status: Never smoker Hx Alcohol Use: No Hx Substance Use: No caffeine: Yes Seatbelt Use: always Review of Systems See HPI for pertinent positives & negatives. and A total of 10 systems reviewed and were otherwise negative Physical Exam Vital Signs Vital Signs - 24 hr 02/20/19 11:23 02/20/19 11:57 02/20/19 13:28 Temperature 36.9 C Temperature Source Oral Pulse Rate 70 Pulse Rate [Apical] 71 Respiratory Rate 18 16 Blood Pressure 132/71 Blood Pressure [Right Arm] 116/67 Blood Pressure Mean 91 Blood Pressure Mean [Right Arm] 83 Pulse Oximetry 97 97 Oxygen Delivery Method Room Air Room Air Sepsis Recent Fever Within 48 Hours No Sepsis New/Unexplained Change in Mental Status No Sepsis Action Taken by Nursing No Action Required GENERAL: Wearing glasses, well nourished, non-toxic. EYE EXAM: Normal conjunctiva. PERRL, no anisocoria and EOM's grossly intact w/o pain. OROPHARYNX: Dry mucus membranes. Grossly normal dentition. NECK: Supple, no nuchal rigidity, no adenopathy, non-tender. No signs of meningismus. LUNGS: Clear to auscultation. Normal chest wall mechanics. HEART: NSR, no MRG. ABDOMEN: Abdomen soft, non-tender, normo-active bowel sounds, no masses, no rebound or guarding. BACK: No CVA TTP. SKIN: No bruising. Macular non-confluent pruritic blanching rash over bilateral upper extremities. Non-blistering. Nikolsky negative. UPPER EXTREMITIES: Upper extremities are grossly normal. Bilateral upper extremity tremor. LOWER EXTREMITIES: No pitting edema. No calf pain. NEURO EXAM: A&O x3, cranial nerves II-XII grossly intact, normal speech, 5/5 strength throughout, no sensory deficits, good finger to nose, no pronator drift, moves all 4 extremities on command w/o issue except bilateral upper extremity tremor Course Course 1138: Past medical records reviewed. The patient was evaluated in room B06. A complete history and physical exam was performed. 1145: Patient was placed on cardiac monitoring. 1303: The pacer interrogation was negative. 1332: I updated the patient on his results and discussed admission with him. 1343: I spoke with Hannah Thompson for Dr. Srinivasan hospitalist. They will evaluate for further management. Administered Medications Sodium Chloride (Nss 1000ml) 1,000 mls @ 125 mls/hr IV .Q8H KATHLEEN Stop: 03/22/19 16:14 Last Admin: 02/20/19 17:23 Dose: 125 mls/hr Documented by: [id number] Discontinued Medications Sodium Chloride (Nss) 500 mls @ 999 mls/hr IV .Q31M KATHLEEN Stop: 02/20/19 12:30 Last Infusion: 02/20/19 12:59 Dose: 0 mls/hr Documented by: [id number] Admin: 02/20/19 12:27 Dose: 999 mls/hr Documented by: [id number] Medical Decision Making Differential Diagnosis Differential includes acute coronary syndrome, myocardial infarction, CVA, TIA, anemia, infection, pneumonia, UTI, pyelonephritis, poor nutrition, dehydration, electrolyte disturbance,hypoglycemia. Medical Records Attestation: I reviewed the patient's medical records. Home Medications Current Medication List: was personally reviewed by me Laboratory Data Attestation: I reviewed the patient's lab results. Result diagrams: 02/20/19 10:55 02/20/19 17:01 Lab Results 02/20/19 02/20/19 02/20/19 Range/Units 10:55 10:55 10:55 WBC 12.52 H (4.8-10.8) K/uL RBC 4.29 L (4.7-6.1) M/uL Hgb 12.3 L (14.0-18.0) g/dL Hct 36.4 L (42-52) % MCV 84.8 (80-100) fL MCH 28.7 (25-34) pg MCHC 33.8 (32-36) g/dL RDW Std Deviation 56.6 H (36.4-46.3) fL RDW Coeff of Andrew 18.2 H (11.5-14.5) % Plt Count 311 (130-400) K/uL MPV 11.2 H (7.4-10.4) fL Immature Gran % (Auto) 1.0 % Neut % (Auto) 76.5 % Lymph % (Auto) 8.0 % Dickenson % (Auto) 11.0 % Eos % (Auto) 3.2 % Baso % (Auto) 0.3 % Immature Gran # (Auto) 0.13 H (0.00-0.02) K/uL Neut # (Auto) 9.57 H (1.4-6.5) K/uL Lymph # (Auto) 1.00 L (1.2-3.4) K/uL Dickenson # (Auto) 1.38 H (0.11-0.59) K/uL Eos # (Auto) 0.40 (0-0.5) K/uL Baso # (Auto) 0.04 (0-0.2) K/uL PT 21.1 H (9.0-12.0) Seconds INR 2.2 H (0.9-1.1) Sodium 131 L (136-145) mmol/L Potassium 4.9 (3.5-5.1) mmol/L Chloride 100 (98-107) mmol/L Carbon Dioxide 21 (21-32) mmol/L Anion Gap 11.0 (3-11) BUN 66 H (7-18) mg/dl Creatinine 2.25 H (0.6-1.4) mg/dl Est Cr Clr Drug Dosing 31.1 ml/min Est GFR ( Amer) 30.8 Est GFR (Non-Af Amer) 26.5 BUN/Creatinine Ratio 29.1 H (10-20) Glucose 269 H (70-99) mg/dl Calcium 9.1 (8.5-10.1) mg/dl Magnesium 2.0 (1.8-2.4) mg/dl Total Bilirubin 0.4 (0.2-1) mg/dl AST 7 L (15-37) U/L ALT 14 (12-78) U/L Alkaline Phosphatase 96 (45-117) U/L Troponin I < 0.015 (0-0.045) ng/ml Total Protein 7.6 (6.4-8.2) gm/dl Albumin 3.4 (3.4-5.0) gm/dl Globulin 4.2 H (2.5-4.0) gm/dl Albumin/Globulin Ratio 0.8 L (0.9-2) Procalcitonin (0-0.5) ng/ml TSH 3.170 (0.300-4.500) uIu/ml Urine Color Urine Appearance (Clear) Urine pH (4.5-7.5) Ur Specific [place] (1.000-1.030) Urine Protein (Negative) Urine Glucose (UA) (Negative) Urine Ketones (Negative) Urine Blood (Negative) Urine Nitrite (Negative) Urine Bilirubin (Negative) Urine Urobilinogen (Negative) Ur Leukocyte Esterase (Negative) Lyme Disease IgG Ab (Negative) Lyme Disease IgM Ab (Negative) 02/20/19 02/20/19 02/20/19 Range/Units 10:55 10:55 12:50 WBC (4.8-10.8) K/uL RBC (4.7-6.1) M/uL Hgb (14.0-18.0) g/dL Hct (42-52) % MCV (80-100) fL MCH (25-34) pg MCHC (32-36) g/dL RDW Std Deviation (36.4-46.3) fL RDW Coeff of Andrew (11.5-14.5) % Plt Count (130-400) K/uL MPV (7.4-10.4) fL Immature Gran % (Auto) % Neut % (Auto) % Lymph % (Auto) % Dickenson % (Auto) % Eos % (Auto) % Baso % (Auto) % Immature Gran # (Auto) (0.00-0.02) K/uL Neut # (Auto) (1.4-6.5) K/uL Lymph # (Auto) (1.2-3.4) K/uL Dickenson # (Auto) (0.11-0.59) K/uL Eos # (Auto) (0-0.5) K/uL Baso # (Auto) (0-0.2) K/uL PT (9.0-12.0) Seconds INR (0.9-1.1) Sodium (136-145) mmol/L Potassium (3.5-5.1) mmol/L Chloride (98-107) mmol/L Carbon Dioxide (21-32) mmol/L Anion Gap (3-11) BUN (7-18) mg/dl Creatinine (0.6-1.4) mg/dl Est Cr Clr Drug Dosing ml/min Est GFR ( Amer) Est GFR (Non-Af Amer) BUN/Creatinine Ratio (10-20) Glucose (70-99) mg/dl Calcium (8.5-10.1) mg/dl Magnesium (1.8-2.4) mg/dl Total Bilirubin (0.2-1) mg/dl AST (15-37) U/L ALT (12-78) U/L Alkaline Phosphatase (45-117) U/L Troponin I (0-0.045) ng/ml Total Protein (6.4-8.2) gm/dl Albumin (3.4-5.0) gm/dl Globulin (2.5-4.0) gm/dl Albumin/Globulin Ratio (0.9-2) Procalcitonin 0.09 (0-0.5) ng/ml TSH (0.300-4.500) uIu/ml Urine Color Yellow Urine Appearance Clear (Clear) Urine pH 5.0 (4.5-7.5) Ur Specific [place] 1.014 (1.000-1.030) Urine Protein Negative (Negative) Urine Glucose (UA) Negative (Negative) Urine Ketones Negative (Negative) Urine Blood Negative (Negative) Urine Nitrite Negative (Negative) Urine Bilirubin Negative (Negative) Urine Urobilinogen Negative (Negative) Ur Leukocyte Esterase Negative (Negative) Lyme Disease IgG Ab Negative (Negative) Lyme Disease IgM Ab Negative (Negative) Imaging Data Radiologist's Impression: Radiology results as stated below per my review and the radiologist's interpretation: CT head/brain wo con CLINICAL HISTORY: intermittent confusion COMPARISON STUDY: 11/23/2018 TECHNIQUE: Axial CT of the brain is performed from the vertex to the skull base. IV contrast was not administered for this examination. A dose lowering technique was utilized adhering to the principles of ALARA. CT DOSE: 690.05 mGycm FINDINGS: No intra or extra-axial mass lesions are visualized. There is no CT evidence of acute cortical infarction. There is no evidence of midline shift. There is no acute hemorrhage. No calvarial fractures are visualized. There are patchy white matter hypodensities likely on a small vessel basis. There are stable basal ganglia calcifications. There is no evidence of pathologic ventricular dilatation. Postsurgical changes are present within the maxillary sinuses. There is an exercise mucosal thickening. There is left sphenoid and ethmoid sinus mucosal thickening. There is frontal sinus mucosal thickening and fluid. There is associated sinus wall thickening. IMPRESSION: 1. Worsening pansinus inflammatory change 2. Otherwise no acute intracranial findings Electronically signed by: Star Pro M.D. 02/20/2019 12:26 PM ECG Data Attestation: I personally reviewed and interpreted this ECG as follows: Indication: + weakness Rate (beats per minute): 74 Rhythm: + sinus rhythm ECG Intervals/blocks: + First degree AV block and + Right Bundle branch block ECG [place]: + Left axis deviation ECG ST segments: + ST elevation (trace elevation in lead 3 ) and + T-wave inversions (v 1-4) Comparison ECG Date: from (11/23/18) Change: the following changes noted (Not in A-fib now, elevations are old but TWI is new) Blood Pressure Blood Pressure Findings: Elevated blood pressure Blood Pressure Disposition: further management by hospitalist ZACHERY Armenta The patient is a 78 y/o male with a past medical history of CAD, A-fib with RVR, Diabetes, and combined systolic and diastolic CHF, who presents to the emergency department from clinic for evaluation of intermittent weakness that began this morning. Patient was seen and evaluated the bedside. The patient did present after being seen in outpatient clinic due to concern for some generalized weakness. The patient has not been feeling well. The patient did have some intermittent confusion. Patient at the bedside is able to follow commands. The patient does not have any obvious strokelike symptoms at this time. The patient did a blood work completed which shows a likely EDA as the patient's baseline creatinine from several months ago was in the ones and today is greater than 2. Patient did receive some gentle hydration but does have a known history of CHF so do not want to volume overload. Patient's troponin is not detectable with the patient did have some EKG changes. No active chest pain. I did speak the on-call hospitalist who agreed to further evaluate treat the patient. Patient's INR is therapeutic. The patient was subsequently admitted to the medicine service. Impression & Plan Acute kidney injury, Acute electrocardiogram changes, Dehydration, Confusion Discharge Plan Visit Data *Final* Discharge Date/Time: 02/20/19 14:59 Chief Complaint: Illness Stated Complaint: lethargic ED Provider: Danny Austin Discharge Problem: Acute kidney injury, Acute electrocardiogram changes, Dehydration, Confusion Patient Disposition: Admitted As Inpatient Discharge Instructions Interventions: ED Discharge Assessment Last Done: 02/20/19 14:59 The scribe's documentation has been prepared under my direction and personally reviewed by me in its entirety. I confirm that the note above accurately reflects all work, treatment, procedures, and medical decision making performed by me.
[2019-02-20] MEDS ORDERED: POLYETHYLENE (MIRALAX) 17 GM PACK PO PRN (15:06)
[2019-02-20] MEDS ORDERED: NITROGLYCERIN SL 0.4 MG/TAB TAB SL PRN (15:06)
[2019-02-20] MEDS ORDERED: MAGNESIUM HYDROXIDE SUSP 30 ML UDC PO PRN (15:06)
[2019-02-20] MEDS ORDERED: ACETAMINOPHEN 325 MG TAB PO PRN (15:06)
[2019-02-20] MEDS ORDERED: ONDANSETRON INJ 2 MG/ML 2 ML VIAL IV PRN (15:06)
[2019-02-20] MEDS ORDERED: ALUMINUM/MAGNESIUM SUSP 30 ML UDC PO PRN (15:06)
[2019-02-20] MEDS ORDERED: SODIUM CHLORIDE 0.9% 1000ML 1,000 ML IV SCH (16:15)
[2019-02-20 17:39] LABS: BUN Creatinine Ratio 30.9 (10-20); Calcium 9.1 mg/dl (8.5-10.1); Creatinine Clr Calc Pharmacy 31.7 ml/min; Est GFR (African American) 37.3; Est GFR (Non-African American) 32.2; Potassium 4.2 mmol/L (3.5-5.1)
[2019-02-20] MEDS ORDERED: PIPERACILL/TAZOBAC CONSULT ACTIVE PRN (19:47)
[2019-02-20] MEDS ORDERED: HYDROCORTISONE HC 2.5% CRM 30GM TUBE EXT ONE (20:27)
[2019-02-20] MEDS ORDERED: PIPERACILLIN/TAZOBACTAM 3.375 GM in DEXTROSE 5% 100 ML IV ONE (20:30)
[2019-02-20] MEDS ORDERED: SODIUM CHLORIDE 0.9% 250 ML IV PRN (20:43)
[2019-02-20] MEDS ORDERED: PHYTONADIONE 5 MG in SODIUM CHLORIDE 0.9% 50 ML IV ONE ×2 (20:45→21:12)
[2019-02-20] MEDS ORDERED: PANTOprazole 80 MG in DEXTROSE 5% 100 ML IV ONE (20:45)
--- NOTE | 2019-02-20 20:48 | CT Scan Report ---
ABDOMEN AND PELVIS CT WITHOUT CONTRAST CT DOSE: 740.33 mGy.cm HISTORY: Acute lactic acidosis. lactic acidosis /eval for bowel ischemia TECHNIQUE: Multiaxial CT images of the abdomen and pelvis were performed without contrast. A dose lo wering technique was utilized adhering to the principles of ALARA. COMPARISON STUDY: CT abdomen and pelvis 11/23/2018, 09/04/2018. FINDINGS: Cardiomegaly. Mural fibrofatty changes of the lateral wall left ventricle. Partially imaged pacer geoff ds. Lipomatous hypertrophy of the interatrial septum. Coronary arterial calcifications are noted. 4 m m solid nodule of the lateral basal segment left lower lobe incidentally noted, unchanged. Mild subse gmental bibasilar atelectasis/scarring. No pneumatosis or pneumoperitoneum. Limited evaluation of the solid abdominal organs without the use of IV contrast. There are a few scat tered punctate calcified granulomata noted throughout the spleen. Liver, gallbladder, pancreas and ad renal glands are unremarkable. There is mild nonspecific bilateral perinephric stranding. Mild cortic al scarring and parenchymal thinning of the inferior pole left kidney. No renal or ureteral calculi i dentified. Partial distention of the urinary bladder with mild wall thickening. Prostamegaly. Small f at filled bilateral inguinal hernias. Extensive calcified plaque the abdominal aorta without aneurysm . No adenopathy. No bowel obstruction. Colonic diverticulosis without acute diverticulitis. No bowel wall thickening, ascites or mesenteric inflammation. Normal appendix. Soft tissues are within normal limits. Degenerat sheryl changes of the spine, pelvis and hips. Multiple remote appearing Schmorl's nodes. Convex left cur vature of the lumbar spine. IMPRESSION: 1. No bowel obstruction or bowel wall thickening. 2. Colonic diverticulosis without acute diverticulitis. 3. Prostamegaly with urinary bladder wall thickening suggestive of chronic bladder outlet obstruction . Correlate with urinalysis to exclude cystitis. 4. Additional findings as above. Electronically signed by: Obey Emerson M.D. 02/20/2019 8:47 PM
[2019-02-20 20:58] LABS: Hematocrit (blood only) 33.9 % (42-52); Hemoglobin 11.4 g/dL (14.0-18.0); Mean Corpuscular Hemoglobin 28.6 pg (25-34); Mean Corpuscular Volume 85.2 fL (80-100); Mean Platelet Volume 10.4 fL (7.4-10.4); Platelet Count 291 K/uL (130-400); RDW Coefficient of Variation 18.1 % (11.5-14.5); RDW Standard Deviation 56.6 fL (36.4-46.3); Red Blood Count 3.98 M/uL (4.7-6.1); White Blood Count 10.16 K/uL (4.8-10.8)
[2019-02-20 20:59] LABS: Mean Corpuscular Hgb Conc 33.6 g/dL (32-36)
[2019-02-20] MEDS ORDERED: ACETAMINOPHEN 1,000 MG/100 ML VIAL IV PRN (20:59)
[2019-02-20] MEDS: HYDROCORTISONE SOD 100 MG in SYRINGE 0 ML IV SCH (21:01)
[2019-02-20] MEDS ORDERED: ICU PROTOCOL FOR HYPERGLYCEMIA PRN (21:03)
[2019-02-20] MEDS ORDERED: ACETAMINOPHEN 1,000 MG/100 ML VIAL IV ONE (21:30)
--- NOTE | 2019-02-20 21:44 | Critical Care Consultation ---
Date of Consultation February 20, 2019 Assessment & Plan (1) Admitted to intensive care unit: Reason Critically Ill: 78-year-old male with EDA on CKD in the setting of dehydration with episodes of dizziness and lightheadedness as well as episodes of confusion who has had one episode of bloody stools with soft blood pressures requiring close hemodynamic monitoring. NEURO - * CAM ICU: NEGATIVE * Confusion: * CT head unremarkable. * Anticipate EDA contribution. * Continue regular neuro checks. CARDIAC/VASCULAR - * Extensive cardiac history including coronary artery disease, A. fib, hypertension, hyperlipidemia, CHF, LEFT ventricular mural thrombus, heart failure with reduced ejection fraction. * Continue home medications as tolerated. * Judicious use of IV fluids. * Echo w/ EF of 39%. * EKG: SR w/ 1' AV block. No St/T-wave changes. QTc 470ms. * Monitor on telemetry. RESPIRATORY - * h/o Asthma. * Saturation well on RA. * AB.47/29/147/21. * CXR w/o acute findings. * Home Rx PRN. GI/NUTRITION - * Presumed LGIB: * Currently on Protonix gtt. * CT abd/pelvis w/o significant findings. * Lactate elevated. Doubt ischemia per associated negative CT. * Trend lactate. * Agree with Abx coverage for now. RENAL/LYTES - * EDA on CKD: * Initially received IVF. * Will hold after aggressive boluses previously. - * BPH * Gardner in place - Strict I&Os. ENDO - * DMII * BSGs per unit protocol. ISS --> gtt per unit policy. * Tena's Thyroiditis: * Continue home Levothyroxine. * Adrenal Insufficiency: * Agree with stress dosing in the current state of illness and w/ marginal SBPs. HEME - * Stable H&H currently. * Trend in the setting of LGIB * Transfuse as needed. * On coumadin. * Received 10mg Vitamin K. * Proceed w/ FFP followed by PCCs if bleeding persistent and substantial. ID - * Broad spectrum coverage for possible intra-abdominal infection with possible translocation of bacteria. * De-escalate as soon as possible. * Consider addition of stool cultures. LINES/IV ACCESS - * PIVs x3 DVT PROPHYLAXIS - * Hold 2/2 LGIB. * SCDs I have personally spent 35 minutes of critical care time in the direct management of this patient. This is a life/limb threatening event. This includes time spent evaluating patient, direct bedside care, chart review, placing orders, interpretation of diagnostic studies, discussion with consultants, patient, and family members, as well as other required patient management activities. This time is exclusive of all separately billable procedures, and teaching time and separate from and in addition to any other critical care service time. Thank you for allowing us to participate in the care of this patient. Please refer to my attending physician's documentation for any further recommendations. (2) Lower GI bleed: (3) Confusion: (4) Dehydration: (5) Acute kidney injury: (6) Coronary artery disease: (7) Mural thrombus of heart: (8) Atrial fibrillation with RVR: (9) Paroxysmal atrial tachycardia: (10) Pacemaker: (11) Type 2 diabetes mellitus: (12) Adrenal insufficiency: (13) Tena's thyroiditis: (14) Diabetic neuropathy: (15) Sick sinus syndrome: Supervising Physician Co-Signing Physician Notes I have personally evaluated and examined this patient. I agree with assessment and plan of Rashmi Hopper PA-C. We discussed the patient in the evening, presumptive lower slow gastrointestinal hemorrhage close observation for hemodynamic instability given severe cardiac disease not amenable to invasive intervention medical management only History of Present Illness Attending Physician: Roxana Coronado MD History of Present Illness Patient is an 78-year-old male with an extensive past medical history including coronary artery disease, hypertension, hyperlipidemia, A. fib, CHF, heart failure with reduced ejection fraction, asthma, GERD, diabetes, thyroid disease, and adrenal insufficiency. He was admitted to this facility earlier today with generalized weakness, dizzy spells, and transient confusion. Patient was admitted in the setting of acute kidney injury on chronic kidney disease. He received IV fluids in the emergency department. Patient had been doing well, but this evening had an episode of bloody stools. Patient had increase in his lactic acid. Remains hemodynamically stable. CT the abdomen pelvis was o btained which demonstrated no acute findings. Concerns for lower GI bleed versus gut ischemia warranting transfer to ICU for further evaluation and management. Upon arrival in the ICU, the patient is awake, alert, and oriented. He does report that he has had some lightheaded spells as well as occasional episodes of confusion. Overall, the patient reports that he feels well laying flat. He off ers no complaints this time. Specifically, he denies any headaches, dizziness, lightheadedness, blurry vision, double vision, slurred speech, facial droop, unilateral weakness/numbness, chest pain, palpitations, shortness of breath, pleuritic pain, nausea, vomiting, or abdominal discomfort. Allergies Allergy/AdvReac Type Severity Reaction Status Date / Time aspirin Allergy Unknown DOES NOT Verified 02/20/19 14:12 TAKE D/T ASTHMA citric acid AdvReac Verified 02/20/19 14:12 [From [facility]] NSAIDS (Non-Steroidal AdvReac Verified 02/20/19 14:12 Anti-Inflamma sodium bicarbonate AdvReac Verified 02/20/19 14:12 [From [facility]] Home Medications Home Medications Medication Instructions Recorded Confirmed Type albuterol sulfate 2 puff INHALATION QID PRN 01/30/18 02/20/19 History budesonide-formoterol 2 puff INHALATION BID 01/30/18 02/20/19 History metoprolol succinate 25 mg PO QAM 01/30/18 02/20/19 History zafirlukast 20 mg PO BID 01/30/18 02/20/19 History omeprazole 20 mg PO QAM 07/25/18 02/20/19 History pravastatin 40 mg PO HS 07/25/18 02/20/19 History gabapentin 300 mg capsule 300 mg PO HS #90 cap 11/10/18 02/20/19 Rx finasteride 5 mg tablet 5 mg PO QAM #90 tab 11/21/18 02/20/19 Rx acetaminophen [Tylenol] 325 mg PO Q6H PRN 11/23/18 02/20/19 History hydrocortisone 20 mg PO QAM 11/23/18 02/20/19 History pen needle, diabetic 32 gauge x #10 ea 11/30/18 12/25/18 History 5/32" blood sugar diagnostic #200 ea 12/04/18 12/25/18 Rx hydrocortisone 10 mg tablet 10 mg PO HS #90 tab 01/17/19 02/20/19 Rx insulin glargine 100 unit/mL (3 25 units SQ HS #15 ml 01/17/19 02/20/19 Rx mL) subcutaneous pen amiodarone 200 mg PO QAM 02/20/19 02/20/19 History clopidogrel 75 mg PO QAM 02/20/19 02/20/19 History escitalopram oxalate 20 mg PO QAM 02/20/19 02/20/19 History levothyroxine 75 mcg PO QAM 02/20/19 02/20/19 History lisinopril 5 mg PO QAM 02/20/19 02/20/19 History potassium chloride 20 meq PO QAM 02/20/19 02/20/19 History spironolactone 12.5 mg PO QAM 02/20/19 02/20/19 History torsemide 20 mg PO QAM 02/20/19 02/20/19 History warfarin 2.5 mg PO QDD 02/20/19 02/20/19 History Patient History Medical History Adrenal insufficiency (Chronic) Anxiety (Chronic) Asthma (Chronic) Atrial fibrillation with RVR (Resolved) BPH (benign prostatic hyperplasia) (Chronic) Chronic renal insufficiency (Chronic) 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) Coronary artery disease (Chronic) multi-vessel disease - medical management Depression (Chronic) Diabetic neuropathy (Chronic) GERD (gastroesophageal reflux disease) (Chronic) Tena's thyroiditis (Chronic) History of non-ST elevation myocardial infarction (NSTEMI) (Resolved) Hyperlipidemia (Chronic) Hypertension (Chronic) Mural thrombus of heart (Acute) Noted on echo November 2018 Pacemaker (Chronic) dual chamber Paroxysmal atrial tachycardia (Chronic) Polymyalgia rheumatica (Chronic) Sick sinus syndrome (Chronic) Type 2 diabetes mellitus (Chronic) Vitamin D deficiency (Chronic) Surgical History History of temporal artery biopsy Family History Father Stroke Other Family history non-contributory Social History Preferred Language: Gambian Communication Ability: Effective Tie Fastener Required: No Beliefs That Will Affect Care: None marital status: Current Living Situation: Family Other Information That Helps Us Care for You: No Feels Safe at Home: Yes Safety Concerns: Feels Safe At This Time Smoking Status: Never smoker Hx Alcohol Use: No Hx Substance Use: No caffeine: Yes Seatbelt Use: always Review of Systems Review of Systems: A complete 10 point review of systems was reviewed with the patient with pertinent positives and negatives as per history of present illness. All else were negative. Physical Exam Physical Exam: VITAL SIGNS - Vital signs and nursing notes were reviewed. GENERAL - 78-year-old male appearing his stated age who is in no acute distress. Communicates well with provider and answers questions appropriately. SKIN - Without rashes. HEAD - NC/AT. EYES - PERRL with EOMI bilaterally. Sclera anicteric. Palpebral conjunctiva pink and moist with no injection noted. EARS - No deformities of external structures noted on gross examination bilaterally. NOSE - Midline and without cyanosis. MOUTH/OROPHARYNX - Without perioral cyanosis. Buccal mucosa pink and moist and without leukoplakia. Tongue midline with equal elevation of palate bilaterally. NECK - Neck with FROM. Supple to palpation. LUNGS - Chest wall symmetric without accessory muscle use, intercostals retractions, or central cyanosis. Normal vesicular breath sounds CTA B/L. No wheezes, rales, or rhonchi appreciated. CARDIAC - RRR with S1/S2. No murmur, rubs, or gallops appreciated. ABDOMEN - Abdominal contour flat without pulsations or visible masses. BS normoactive all four quadrants. No tenderness, palpable masses, hepatosplenomegaly, or ascites noted. EXTREMITIES - No clubbing or peripheral cyanosis. No pretibial edema present. +3/5 radial and dorsalis pedis pulses palpated throughout. +5/5 strength noted in UE/LE bilaterally. NEUROLOGIC - Cranial nerves II through XII grossly intact. Sensory intact to light touch throughout. PSYCH - A&Ox3 and cooperates fully with examiner. Pt is very pleasant and interacts well with examiner. Results & Data Vital Signs (Past 12 Hours) Vital Signs Temp Pulse Pulse Resp BP BP Pulse Ox 02/20/19 19:58 36.8 C 75 18 143/64 H 93 02/20/19 15:17 36.4 C L 88 18 96/60 L 98 02/20/19 14:56 74 18 108/58 L 96 02/20/19 13:28 71 16 116/67 02/20/19 11:57 97 02/20/19 11:23 36.9 C 70 18 132/71 97 Coding Level of Care Code Critical Care 1st 30-74 mins Diagnoses Admitted to intensive care unit Z78.9 Lower GI bleed K92.2 Confusion R41.0 Dehydration E86.0 Acute kidney injury N17.9 Coronary artery disease I25.10 Mural thrombus of heart I51.3 Atrial fibrillation with RVR I48.91 Paroxysmal atrial tachycardia I47.1 Pacemaker Z95.0 Type 2 diabetes mellitus E11.9 Adrenal insufficiency E27.40 Tena's thyroiditis E06.3 Diabetic neuropathy E11.40 Sick sinus syndrome I49.5 Time Spent (min) 35
[2019-02-20] MEDS ORDERED: HEPARIN SOD 5,000 UNIT/0.5 ML VIAL SQ SCH (22:00)
[2019-02-20 23:28] LABS: INR 1.9 (0.9-1.1)
[2019-02-20 23:31] LABS: BUN Creatinine Ratio 26.7 (10-20); Blood Urea Nitrogen 60 mg/dl (7-18); Calcium 8.6 mg/dl (8.5-10.1); Carbon Dioxide 24 mmol/L (21-32); Chloride 104 mmol/L (98-107); Creatinine Clr Calc Pharmacy 26.9 ml/min; Est GFR (African American) 30.6; Est GFR (Non-African American) 26.4; Glucose 236 mg/dl (70-99); Potassium 4.7 mmol/L (3.5-5.1); Sodium 134 mmol/L (136-145)
[2019-02-20 23:36] LABS: Troponin I < 0.015 ng/ml (0-0.045)
[2019-02-20] MEDS: PANTOprazole 40 MG in DEXTROSE 5% 100 ML IV SCH (23:38)
[2019-02-20] MEDS: HYDROCORTISONE HC 2.5% CRM 30GM TUBE EXT SCH (23:39)
[2019-02-21] MEDS ORDERED: PHARMACY GLYCEMIC MGMT CONSULT PRN (01:06)
[2019-02-21] MEDS ORDERED: INSULIN GLARGINE SOLOSTAR 100 UNITS/ML 3 ML PEN SC ONE ×2 (01:15→16:30)
[2019-02-21] MEDS: INSULIN ASPART 100 UNITS/ML 3 ML PEN SC SCH ×6 (01:17→20:45)
[2019-02-21 01:52] LABS: Hematocrit (blood only) 32.1 % (42-52); Hemoglobin 10.8 g/dL (14.0-18.0)
[2019-02-21] MEDS: PIPERACILLIN/TAZOBACTAM 3.375 GM in DEXTROSE 5% 100 ML IV SCH ×2 (02:33→09:50)
[2019-02-21] MEDS: PANTOprazole 40 MG in DEXTROSE 5% 100 ML IV SCH ×5 (02:45→21:51)
[2019-02-21] MEDS: HYDROCORTISONE SOD 100 MG in SYRINGE 0 ML IV SCH (04:21)
[2019-02-21 05:11] LABS: Hematocrit (blood only) 32.8 % (42-52); Hemoglobin 10.9 g/dL (14.0-18.0); Mean Corpuscular Hemoglobin 28.1 pg (25-34); Mean Corpuscular Hgb Conc 33.2 g/dL (32-36); Mean Corpuscular Volume 84.5 fL (80-100); Mean Platelet Volume 10.3 fL (7.4-10.4); Platelet Count 280 K/uL (130-400); RDW Standard Deviation 55.8 fL (36.4-46.3); Red Blood Count 3.88 M/uL (4.7-6.1); White Blood Count 11.76 K/uL (4.8-10.8)
[2019-02-21 05:22] LABS: INR 1.5 (0.9-1.1); Prothrombin Time 14.6 Seconds (9.0-12.0)
[2019-02-21 05:28] LABS: BUN Creatinine Ratio 26.5 (10-20); Calcium 8.5 mg/dl (8.5-10.1); Creatinine Clr Calc Pharmacy 29.4 ml/min; Est GFR (Non-African American) 29.4; Phosphorus 3.7 mg/dl (2.5-4.9); Potassium 4.8 mmol/L (3.5-5.1)
[2019-02-21] MEDS ORDERED: NovoLIN-R BOLUS FROM BAG IV ONE (07:14)
[2019-02-21] MEDS ORDERED: INSULIN PROTOCOL GOAL RANGE ONE (07:14)
[2019-02-21] MEDS ORDERED: SEVERE STRESS LEVEL ONE (07:14)
[2019-02-21] MEDS ORDERED: INSULIN REGULAR 250 UNITS in SODIUM CHLORIDE 0.9% 247.5 ML IV SCH (07:15)
[2019-02-21] MEDS ORDERED: GLUCAGON FOR INJ 1 MG VIAL IM PRN (07:30)
[2019-02-21] MEDS ORDERED: DEXTROSE 50% 50 ML SYRINGE IV PRN (07:30)
[2019-02-21] MEDS ORDERED: CARBOHYDRATES FOR HYPOGLYCEMIA PO PRN (07:30)
[2019-02-21] MEDS ORDERED: GLUCOSE 40% GEL 15 GM TUBE PO PRN (07:30)
[2019-02-21] MEDS ORDERED: GLUCOSE 10 TABS/TUBE PO PRN (07:30)
--- NOTE | 2019-02-21 08:14 | Critical Care Progress Note ---
Date of Service February 21, 2019 Assessment & Plan (1) Admitted to intensive care unit: Reason Critically Ill: 78-year-old male here with a PMHx significant for CAD, T2DM, PMHR, BPH, Anxiety/Depression, AI, HLD, CKD, and HTN who presented with lightheadedness and olivia stool and who was admitted for acute GIB. Neuro - CAM ICU: NEGATIVE Sedation: None Analgesia: None Confusion, improving, suspect rremic encephalopathy - CT-H naf -EDA management as below Cardiac - CAD/HTN/HLD/HFrEF ~39% -Aspirin, Plavix held in the setting of GI bleed Lisinopril 5 mg held in the setting of EDA Spironolactone held in the setting of EDA Torsemide held in the setting of EDA Metoprolol 25 mg p.o. every morning Continue pravastatin 40 mg p.o. nightly Atrial fibrillation Continue amiodarone 200 mg every morning Coumadin held in the setting of GI bleed Respiratory - Hx Athsma - Continue budesonide/formoterol 2 puff BID CXR shows no active disease in the chest. No acute concerns GI - Clear liquid diet LGIB ddx diverticular bleeding/ischemic colitis/hemorrhoids - GI Consulted - BRBPR, prior colo 2016 shows polyps, hemorrhoids, an anal fissure. - Low suspicion for malignancy - Recommend to add miralax, hydrocortisone suppositories for hemmorhoids - CT-Ab/Pel No bowel obstruction or bowel wall thickening, Colonic diverticulosis without acute diverticulitis, prostamegaly with urinary bladder wall thickening suggestive of chronic bladder outlet obstruction. - Bowel ischemia unlikely, trend lactate - Protonix drip, transition to protonix PO - CBC qAM RENAL/LYTES - EDA - Cr 2.07 from 1.11 - BMP daily - Diuretics, SHERLYN held as above - Replace lytes as needed. - BPH, no acute concerns ENDO - Hypothyroidism Continue levothyroxine 75 mcg p.o. every morning AI - Continue hydrocortisone 10mg po hs Type 2 diabetes mellitus Hold DIRECTOR [employer]ITLE glargine ICU hyperglycemia protocol HEME - Hgb 10.9, no signs of acute bleeding ID - - no signs of colitis - Zosyn held INTEGUMENTARY - No acute concerns LINES/IV ACCESS - PIVs intact. DVT PROPHYLAXIS - Hold in setting of GIB Thank you for allowing us to be part of this patient's care. Please refer to Dr. Villegas's documentation for any further recommendations. (2) Lower GI bleed: (3) Acute kidney injury: (4) Acute electrocardiogram changes: (5) Dehydration: (6) Confusion: (7) Mural thrombus of heart: (8) Coronary artery disease: (9) Atrial fibrillation with RVR: (10) Paroxysmal atrial tachycardia: (11) Pacemaker: (12) Type 2 diabetes mellitus: (13) Polymyalgia rheumatica: (14) Vitamin D deficiency: (15) GERD (gastroesophageal reflux disease): (16) BPH (benign prostatic hyperplasia): (17) Anxiety: (18) Depression: (19) Diabetic neuropathy: (20) Adrenal insufficiency: (21) Tena's thyroiditis: (22) Asthma: (23) Combined systolic and diastolic congestive heart failure: (24) History of non-ST elevation myocardial infarction (NSTEMI): (25) Hyperlipidemia: (26) Hypertension: (27) Chronic renal insufficiency: Supervising Physician Co-Signing Physician Notes Dr. Crump was resident physician during care of patient. I separately evaluated patient for harrell portions of the history and the exam. I was present during the critical portion of medical decision making, and I discussed the case with the resident. I generally agree with the findings and plan. Patient was discussed in multidisciplinary rounds, hemodynamics have been stable, we will trend an additional H&H however it appears the blood loss is slow, reviewed gastroenterology consult discontinuing antibiotics at this time presumptive diverticular bleeding will be stable for downgrade later today as long as repeat hemoglobin hematocrit is stable Angeles Acosta is seen at the bedside this morning. He is lying in bed, comfortable, in no acute distress. He reports he has had some intermittent nausea, but no abdominal pain. He has had one bowel movement this morning. He denies chest pain, but endorses dyspnea, intermittent constipation and bloody stools, fatigue, and easy bruising. He endorses mild left lower quadrant abdominal pain. Review of Systems Review of Systems: Constitutional: Denies fever, chills. Endorses low energy and fatigue Eyes: Denies vision change ENT: Denies sore throat Cardiovascular: Denies Chest pain, chest pressure, palpitations Respiratory: Endorses shortness of breath, denies cough this morning. Gastrointestinal: Abdominal pain and nausea/constipation as noted in HPI. Genitourinary: Denies pain with urination Musculoskeletal: Endorses global fatigue, endorses chronic intermittent body aches/PMR, but denies new/sudden myalgia/arthralgias Integumentary:Denies new rash, lesions, bruising Physical Exam Physical Exam: General: Alert. NAD. Cooperative. Skin warm and dry. HEENT: Atraumatic, normocephalic. Pulm: CTAB A&P. -wheezes, -rales, -rhonchi. Symmetrical chest rise. No increase work of breathing. No respiratory distress. Cardiac: Irregularly irregular, -mrg. Radial pulses intact and symmetrical. Abdominal: Focal right lower quadrant, left lower quadrant tenderness to deep palpation. Abdomen soft, nonrigid. No rebound tenderness. Extremities: [employer] strength, finger flexion/extension, ankle plantar flexion/dorsiflexion 4+/5 bilaterally, symmetrical. Sensation intact to soft touch in fingertips and hallux bilaterally. PT pulse intact bilaterally to palpation. Results & Data Vital Signs (Past 12 Hours) Vital Signs Temp Pulse Pulse Resp BP Pulse Ox 02/21/19 07:15 65 02/21/19 04:10 37 C 68 14 119/50 L 98 02/21/19 02:00 73 16 124/47 L 98 02/21/19 01:00 62 20 104/51 L 97 02/21/19 00:00 75 02/20/19 23:45 37.1 C 72 14 104/44 L 94 02/20/19 22:00 70 14 129/61 02/20/19 21:30 36.9 C 72 18 128/51 L 99 Resident Activity Tracking Resident Involvement: Resident Care Provided Care Provided: Adult Hospital Medicine
[2019-02-21] MEDS: HYDROCORTISONE HC 2.5% CRM 30GM TUBE EXT SCH ×2 (08:54→20:38)
--- NOTE | 2019-02-21 09:20 | Gastrointestinal Consultation ---
Date of Consultation February 21, 2019 Assessment & Plan (1) Lower GI bleed: H/H 10.9/32.8. Had an episode of bright red blood per rectum. Chronically anticoagulated on Coumadin (INR 2.2 on 02/20) and takes Aspirin & Plavix chronically. Previous colonoscopy in 2016 indicated 2 polyps, internal hemorrhoids, diverticulosis, & an anal fissure. Given extensive cardiac issues & hypotension, clinical concern was initially for an ischemic colitis. CT from this admission (without contrast) unremarkable for acute issues, did show chronic diverticular changes. Recent CT in November 2018 indicated diverticulitis at that time. Patient reports some constipation & does endorse mild suprapubic/LLQ pain. Patient does appear to be on Zosyn per the hospitalist orders. Differential diagnosis includes diverticular bleeding vs ischemic colitis vs hemorrhoidal bleeding vs less likely malignancy (as he recently had a colonoscopy) vs other. Given reported symptoms, this does not appear to be guest service representative of upper GI bleeding, though patient is being covered with BID PPI therapy. Would advise proceeding with conservative management given his extensive cardiac issues. Continue to monitor H/H & for further episodes of GI bleeding. If this is guest service representative of a diverticular bleed, this will likely resolve on its own. If related to a developing ischemic colitis, patient is already on antibiotics & the treatment would be conservative management without intervention. I will add Miralax for constipation management and hydrocortisone suppositories to treat for possible hemorrhoidal bleeding that was exacerbated by anticoagulation as patient does report recent issues with hemorrhoidal bleeding. At present there is no urgent indication for endoscopic evaluation, however we will continue to monitor the patient's clinical course & make further recommendations as necessary. Thank you for allowing us to participate in the care of this patient. If you should have any further questions or concerns, do not hesitate to contact us at extension [phone] or [phone]. Present on Admission?: No Supervising Physician Co-Signing Physician Notes Agree with KALIA Sullivan as above Abd: Soft, Tender LLQ, ND Continue current therapy Conservative care without invasive workup due to medical comorbidities. Patient is in agreement and would like to avoid invasive testing unless absolutely necessary. Continue clear liquid diet today History of Present Illness Reason for Consultation: GI bleed Attending Physician: Roxana Coronado MD History of Present Illness Patient is an 78 yo male who presents to the hospital with Dizziness. He has a past medical history of CAD with history of NSTEMI, Ischemic cardiomyopathy with an EF of 39%, mural thrombus of the heart, Atrial fibrillation, depression, anx iety, BPH, DM2 with neuropathy, sick sinus syndrome, HLD, & HTN. He is on Aspirin, Plavix & Coumadin as an outpatient. The patient endorses an episode of bloody stool this AM. He describes it as red blood. He reports some suprapubic/LLQ abdominal pain. His last colonoscopy was in 2015 and indicated 2 polyps, diverticulosis, internal hemorrhoids, & an anal fissure. He reports he recently has had issues with hemorrhoidal bleeding. His H/H is presently 10.9/32.8. A CT abdomen/pelvis (without contrast) indicated no acute GI findings including ischemic colitis or diverticulitis. Patient did have diverticulitis in November 2018 per imaging reports found from that time. He reports incomplete evacuation of stool recently. He was experiencing some blood pressure fluctuations at the time of the bleeding. He follows with [facility] due to his extensive cardiac issues. He also has acute renal failure on chronic CKD. He denies family history of GI abnormalities. He denies heartburn, reflux, epigastric pain, dysphagia, or unintended weight loss. Allergies Allergy/AdvReac Type Severity Reaction Status Date / Time aspirin Allergy Unknown DOES NOT Verified 02/20/19 14:12 TAKE D/T ASTHMA citric acid AdvReac Verified 02/20/19 14:12 [From [facility]] NSAIDS (Non-Steroidal AdvReac Verified 02/20/19 14:12 Anti-Inflamma sodium bicarbonate AdvReac Verified 02/20/19 14:12 [From [facility]] Home Medications Home Medications Medication Instructions Recorded Confirmed Type albuterol sulfate 2 puff INHALATION QID PRN 01/30/18 02/20/19 History budesonide-formoterol 2 puff INHALATION BID 01/30/18 02/20/19 History metoprolol succinate 25 mg PO QAM 01/30/18 02/20/19 History zafirlukast 20 mg PO BID 01/30/18 02/20/19 History omeprazole 20 mg PO QAM 07/25/18 02/20/19 History pravastatin 40 mg PO HS 07/25/18 02/20/19 History gabapentin 300 mg capsule 300 mg PO HS #90 cap 11/10/18 02/20/19 Rx finasteride 5 mg tablet 5 mg PO QAM #90 tab 11/21/18 02/20/19 Rx acetaminophen [Tylenol] 325 mg PO Q6H PRN 11/23/18 02/20/19 History hydrocortisone 20 mg PO QAM 11/23/18 02/20/19 History pen needle, diabetic 32 gauge x #10 ea 11/30/18 12/25/18 History 5/32" blood sugar diagnostic #200 ea 12/04/18 12/25/18 Rx hydrocortisone 10 mg tablet 10 mg PO HS #90 tab 01/17/19 02/20/19 Rx insulin glargine 100 unit/mL (3 25 units SQ HS #15 ml 01/17/19 02/20/19 Rx mL) subcutaneous pen amiodarone 200 mg PO QAM 02/20/19 02/20/19 History clopidogrel 75 mg PO QAM 02/20/19 02/20/19 History escitalopram oxalate 20 mg PO QAM 02/20/19 02/20/19 History levothyroxine 75 mcg PO QAM 02/20/19 02/20/19 History lisinopril 5 mg PO QAM 02/20/19 02/20/19 History potassium chloride 20 meq PO QAM 02/20/19 02/20/19 History spironolactone 12.5 mg PO QAM 02/20/19 02/20/19 History torsemide 20 mg PO QAM 02/20/19 02/20/19 History warfarin 2.5 mg PO QDD 02/20/19 02/20/19 History Patient History Medical History Adrenal insufficiency (Chronic) Anxiety (Chronic) Asthma (Chronic) Atrial fibrillation with RVR (Resolved) BPH (benign prostatic hyperplasia) (Chronic) Chronic renal insufficiency (Chronic) 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) Coronary artery disease (Chronic) multi-vessel disease - medical management Depression (Chronic) Diabetic neuropathy (Chronic) GERD (gastroesophageal reflux disease) (Chronic) Tena's thyroiditis (Chronic) History of non-ST elevation myocardial infarction (NSTEMI) (Resolved) Hyperlipidemia (Chronic) Hypertension (Chronic) Mural thrombus of heart (Acute) Noted on echo November 2018 Pacemaker (Chronic) dual chamber Paroxysmal atrial tachycardia (Chronic) Polymyalgia rheumatica (Chronic) Sick sinus syndrome (Chronic) Type 2 diabetes mellitus (Chronic) Vitamin D deficiency (Chronic) Surgical History History of temporal artery biopsy Family History Father Stroke Other Family history non-contributory Social History Preferred Language: Marshallese Communication Ability: Effective Lock Stitch Channeler Required: No Beliefs That Will Affect Care: None marital status: Current Living Situation: Family Other Information That Helps Us Care for You: No Feels Safe at Home: Yes Safety Concerns: Feels Safe At This Time Smoking Status: Never smoker Hx Alcohol Use: No Hx Substance Use: No caffeine: Yes Seatbelt Use: always Review of Systems Constitutional: no fever and no chills Eyes: no acute issues Ear, Nose, Mouth, Throat: no acute issues Respiratory: + dyspnea on exertion; no cough Cardiovascular: no chest pain Gastrointestinal: + abdominal pain (mild LLQ pain), + constipation and + blood in stools Musculoskeletal: no acute complaints Integumentary: no rash Neurologic: + dizziness Psychiatric: + depression and + anxiety Endocrine: + fatigue Hematologic / Lymphatic: + easy bleeding Physical Exam Constitutional: WD/WN, vitals as above Eyes: PERRL, conjunctivae normal, anicteric sclerae ENMT: external ear and nose normal, oropharynx normal Neck: normal visual inspection Respiratory: normal respiratory effort, lungs clear to auscultation Cardiovascular: Rate/Rhythm: + irregularly irregular Gastrointestinal (Abdomen): normal bowel sounds, soft, nontender, no hepatosplenomegaly Musculoskeletal: Extremities: extremities normal to inspection Skin: no rashes, warm and dry Psychiatric: A+Ox3, euthymic affect Results & Data Vital Signs (Past 12 Hours) Vital Signs Temp Pulse Pulse Resp BP Pulse Ox 02/21/19 07:15 65 02/21/19 04:10 37 C 68 14 119/50 L 98 02/21/19 02:00 73 16 124/47 L 98 02/21/19 01:00 62 20 104/51 L 97 02/21/19 00:00 75 02/20/19 23:45 37.1 C 72 14 104/44 L 94 02/20/19 22:00 70 14 129/61 02/20/19 21:30 36.9 C 72 18 128/51 L 99 PG Care Time/CCT Total # of Minutes Spent Total Time Spent with Patient: Total time spent is greater than 50% in coordination of care (as documented) at patient's floor/unit and/or counseling patient:
[2019-02-21] MEDS: POLYETHYLENE (MIRALAX) 17 GM PACK PO SCH (10:27)
[2019-02-21] MEDS ORDERED: ALBUTEROL HFA 8 GM INHALER INH PRN (11:02)
[2019-02-21] MEDS ORDERED: ACETAMINOPHEN 325 MG TAB PO PRN (11:02)
[2019-02-21] MEDS: HYDROCORTISONE ACETATE 25 MG SUPP PR SCH ×2 (11:10→20:55)
[2019-02-21] MEDS: METOPROLOL SUCC 25MG EXT REL TAB PO SCH (12:31)
[2019-02-21] MEDS: BUDESONIDE/FORMOTEROL FUMARATE 160/4.5 60 PUFFS/INHALER INH SCH ×2 (12:32→20:38)
--- NOTE | 2019-02-21 13:06 | Pharmacy Report ---
Pharmacy Glycemic Short Note 2 - Date of Service February 21, 2019 - Glycemic Short BSG Results (Last 24 hours): 02/20/19 02/20/19 02/21/19 17:01 23:06 00:13 Glucose 149 H 236 H POC Glucose 225 H 02/21/19 02/21/19 02/21/19 04:16 04:59 06:26 Glucose 270 H POC Glucose 297 H 267 H 02/21/19 02/21/19 02/21/19 09:06 10:21 11:08 Glucose POC Glucose 230 H 266 H 215 H 02/21/19 12:11 Glucose POC Glucose 152 H OUTPATIENT ANTIDIABETIC REGIMEN: * Lantus 25 units SQ Q HS * A1c = 8.3% 09/05/18 ASSESSMENT: * Type 2 diabetic admitted to ICU for EDA, dehydration, possible lower GIB * Patient became hyperglycemic overnight despite SQ basal/bolus doses, likely due to stress of illness combined with stress dose IV hydrocortisone * IV insulin infusion initiated this AM due to BSGs in mid-200s * Stress dose IV hydrocortisone is now being d/c'd and will resume out-pt PO hydrocortisone regimen this evening. Diet has been ordered. * Will resume basal/bolus SQ regimen with dinnertime meal as the effects of stress dose HC should be minimal at that time. * Plan to overlap insulin drip w/ SQ Lantus by 2 hrs. PLAN FOR INPATIENT GLYCEMIC CONTROL: * Repeat A1c * Continue IV insulin drip this AM, goal range 110-180mg/dL * Basal insulin * Resume Lantus 12 units SQ BID - 1st dose with dinner and 2nd at bedtime today * D/C insulin drip 2 hrs after dinner-time Lantus dose given * Bolus insulin * NovoLog per scale ACHS and at 0200 * Goal Range: Low 110 mg/dL - High 140 mg/dL * Correction Factor: 30 mg/dL/unit * Nutritional / Prandial insulin per carb ratio of 1 unit per 10 grams CHO consumed PLAN FOR DISCHARGE: * to be determined
[2019-02-21 13:36] LABS: Estimated Average Glucose 232 mg/dl; Hemoglobin A1C 9.7 % (4.5-5.6)
[2019-02-21] MEDS ORDERED: Zafirlukast 20 MG: ORDER AWAITING ACTION SCH (16:00)
--- NOTE | 2019-02-21 16:54 | Hospitalist Progress Note ---
Date of Service February 21, 2019 Assessment & Plan (1) Lower GI bleed: possible diverticular bleed CT abdomen pelvis noncontrast : Shows no evidence of bowel thickening, chronic diverticulosis without any diverticulitis appreciate input from GI no indication for emergent colonoscopy diet advanced to clears hemodynamically stable to transferred out of ICU Acute Renal Failure on Chronic CKD: CKD stage III with creatinine 1.1 Admitted with creatinine 2.2 possible secondary to dehydration GI bleed Ordered to hold diuretics Given IV fluids Repeat creatinine improved Nephrology consulted Avoid contrast studies /NSAIDs Coronary artery disease: Severe extensive coronary artery disease with multivessel occlusion noted in cardiac cath at [facility] on 04/29/2018: Left main 30% stenosis Left anterior descending 80% stenosis Left circumflex coronary artery 80% stenosis 100% stenosis of the right coronary artery with [id number] collaterals Echocardiogram: 01/23/2019: Basal inferior wall akinetic, mild and apical segment of the inferior wall is hypokinetic, the posterior wall is hypokinetic LV ejection fraction 39% - was on Plavix /aspirin /beta-alex /statin /SHERLYN inhibitor All of the above meds kept on hold secondary to GI bleed Metoprolol /statin resumed cont to hold dual antiplatelets given recent GI bleed will need to D/w GI regarding safe time to resume Aspirin and Plavix CHRONIC A. FIB Coumadin discontinued coagulopathy given Fan K resumed Beta alex ADRENAL INSUFFICIENCY On p.o. hydrocortisone chronically 30 mg daily was started on IV Hydrocortisone 100 mg TID remains stable hemodynamically IV Hydrocortisone D/kusum resumed PO staroids Severe ischemic cardiomyopathy Volume status stable Diuretics kept on hold secondary to acute renal failure GI bleed Type 2 diabetes started on IV insulin per ICU glycemic protocol -BSG elevated > 200 pharmacy following for glycemic managment Confusion/metabolic encephalopathy resolved mental status improved to baseline Presented with confusion weakness forgetfulness Metabolic encephalopathy in the setting of acute GI bleed lactic acidosis, GI bleed Mental status improved after IV hydration, awake oriented x3 conversing appropriately CT head negative for any acute change CODE STATUS: Full code DVT prophylaxis: SCD and teds avoid pharmacological anticoagulation in the setting of GI bleed Disposition: stable to transfer to PCU Daughter Mel updated at bedside Subjective He is lying in bed, comfortable, in no acute distress. feels hungry , appreciate input by GI possible diverticular bleed -usually resolves spontaneouly no indication for colonoscopy (no active GI bleed , H&H stable ) Physical Exam Constitutional: WD/WN, vitals as above no acute distress Eyes: PERRL, conjunctivae normal, anicteric sclerae ENMT: external ear and nose normal, oropharynx normal Neck: trachea midline, no thyromegaly Respiratory: normal respiratory effort, lungs clear to auscultation Cardiovascular: RRR, no murmur, no edema Gastrointestinal (Abdomen): Inspection/Auscultation: normal bowel sounds; abdomen not distended Percussion/Palpation: abdomen soft; abdomen nontender and no ascites Skin: no rashes, warm and dry Neurologic: PERRL, EOMI, accommodation nl, no face palsy, no dysarthria Psychiatric: A+Ox3, euthymic affect Results & Data Vital Signs (Past 12 Hours) Vital Signs Temp Pulse Resp BP Pulse Ox 02/21/19 16:00 36.7 C 70 16 131/60 98 02/21/19 15:20 72 14 135/69 100 02/21/19 15:00 69 14 77 L 02/21/19 14:00 70 20 132/75 99 02/21/19 13:01 72 20 134/62 99 02/21/19 12:01 36.5 C 17 135/44 L 100 02/21/19 11:00 73 19 122/64 99 02/21/19 10:00 70 17 140/67 100 02/21/19 09:41 74 21 126/65 94 02/21/19 09:37 71 19 119/57 L 98 02/21/19 09:34 70 19 128/69 100 02/21/19 09:25 68 15 117/70 99 02/21/19 09:00 71 18 140/76 100 02/21/19 08:00 36.6 C 70 23 159/69 H 98 02/21/19 07:15 65 02/21/19 07:00 60 22 150/68 H 99
--- NOTE | 2019-02-21 17:24 | Nephrology Consultation ---
Date of Consultation February 21, 2019 Assessment & Plan (1) Acute kidney injury: Patient with EDA on CKD likely due to GI bleed and hypotension. He is at risk for progression to ATN. Cr is better today at 2. Baseline cr 1.4-1.7. No hydronephrosis on CT evidence of chronic bladder outlet obstruction. -Monitor with daily BMP -No contrast unless life saving -No need for IV fluids. (2) Lower GI bleed: Unclear etiology but appears to have stopped. GI recommend conservative management. Monitor and transfuse as needed. (3) Hypertension: BP is on the lower side. Baseline systolic BP in the 150's and now pt in the 110's. Agree with holding antihypertensives. Low threshold for fluids if BP drops further but ok to hold off now. History of Present Illness Reason for Consultation: EDA on CKD Requesting Physician: Roxana Coronado MD Attending Physician: Roxana Coronado MD History of Present Illness This is an 78yoM admitted on 02/20/19 with BRBPR and found to have worsening renal function. Cr was 2.2 on admission from a baseline of 1.4-1.7 as recent as November 2018. Other PMH include CAD with history of NSTEMI, Ischemic cardiomyopathy with an EF of 39%, mural thrombus of the heart, Atrial fibrillation, depression, anxiety, BPH, DM2 with neuropathy, sick sinus syndrome, HLD, & HTN. He is on Aspirin, Plavix & Coumadin as an outpatient. Since admission, he has not had further episodes of bleeding. His BP was low yesterday but a little better today. he is PPIs. Cr is slightly better at 2 today. No SOB, no NSAIDs and no urinary symptoms. No leg swelling. Allergies Allergy/AdvReac Type Severity Reaction Status Date / Time aspirin Allergy Unknown DOES NOT Verified 02/20/19 14:12 TAKE D/T ASTHMA citric acid AdvReac Verified 02/20/19 14:12 [From [facility]] NSAIDS (Non-Steroidal AdvReac Verified 02/20/19 14:12 Anti-Inflamma sodium bicarbonate AdvReac Verified 02/20/19 14:12 [From [facility]] Home Medications Home Medications Medication Instructions Recorded Confirmed Type albuterol sulfate 2 puff INHALATION QID PRN 01/30/18 02/20/19 History budesonide-formoterol 2 puff INHALATION BID 01/30/18 02/20/19 History metoprolol succinate 25 mg PO QAM 01/30/18 02/20/19 History zafirlukast 20 mg PO BID 01/30/18 02/20/19 History omeprazole 20 mg PO QAM 07/25/18 02/20/19 History pravastatin 40 mg PO HS 07/25/18 02/20/19 History gabapentin 300 mg capsule 300 mg PO HS #90 cap 11/10/18 02/20/19 Rx finasteride 5 mg tablet 5 mg PO QAM #90 tab 11/21/18 02/20/19 Rx acetaminophen [Tylenol] 325 mg PO Q6H PRN 11/23/18 02/20/19 History hydrocortisone 20 mg PO QAM 11/23/18 02/20/19 History pen needle, diabetic 32 gauge x #10 ea 11/30/18 12/25/18 History 5/32" blood sugar diagnostic #200 ea 12/04/18 12/25/18 Rx hydrocortisone 10 mg tablet 10 mg PO HS #90 tab 01/17/19 02/20/19 Rx insulin glargine 100 unit/mL (3 25 units SQ HS #15 ml 01/17/19 02/20/19 Rx mL) subcutaneous pen amiodarone 200 mg PO QAM 02/20/19 02/20/19 History clopidogrel 75 mg PO QAM 02/20/19 02/20/19 History escitalopram oxalate 20 mg PO QAM 02/20/19 02/20/19 History levothyroxine 75 mcg PO QAM 02/20/19 02/20/19 History lisinopril 5 mg PO QAM 02/20/19 02/20/19 History potassium chloride 20 meq PO QAM 02/20/19 02/20/19 History spironolactone 12.5 mg PO QAM 02/20/19 02/20/19 History torsemide 20 mg PO QAM 02/20/19 02/20/19 History warfarin 2.5 mg PO QDD 02/20/19 02/20/19 History Patient History Medical History Adrenal insufficiency (Chronic) Anxiety (Chronic) Asthma (Chronic) Atrial fibrillation with RVR (Resolved) BPH (benign prostatic hyperplasia) (Chronic) Chronic renal insufficiency (Chronic) 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) Coronary artery disease (Chronic) multi-vessel disease - medical management Depression (Chronic) Diabetic neuropathy (Chronic) GERD (gastroesophageal reflux disease) (Chronic) Tena's thyroiditis (Chronic) History of non-ST elevation myocardial infarction (NSTEMI) (Resolved) Hyperlipidemia (Chronic) Hypertension (Chronic) Mural thrombus of heart (Acute) Noted on echo November 2018 Pacemaker (Chronic) dual chamber Paroxysmal atrial tachycardia (Chronic) Polymyalgia rheumatica (Chronic) Sick sinus syndrome (Chronic) Type 2 diabetes mellitus (Chronic) Vitamin D deficiency (Chronic) Surgical History History of temporal artery biopsy Family History Father Stroke Other Family history non-contributory Social History Preferred Language: Indonesian Communication Ability: Effective Clinical Laboratory Technologist Required: No Beliefs That Will Affect Care: None marital status: Current Living Situation: Family Other Information That Helps Us Care for You: No Feels Safe at Home: Yes Safety Concerns: Feels Safe At This Time Smoking Status: Never smoker Hx Alcohol Use: No Hx Substance Use: No caffeine: Yes Seatbelt Use: always Review of Systems Review of Systems: All systems reviewed & are unremarkable except as noted in HPI & below Physical Exam Physical Exam: General exam: Appears comfortable, no acute distress HEENT: Pupils are equal and reactive to light Neck: No JVD, neck is supple trachea is midline Respiratory system: Clear breath sounds bilaterally. Gastrointestinal: Abdomen is soft, non distended, non tender, bowel sounds are present CVS: Regular rate and rhythm. No murmurs, rubs or gallops Musculoskeletal: No joint or muscle tenderness Extremities: Non tender, no edema, peripheral pulses are present Neuro: Oriented, no tremors, no focal neurological deficits Skin: No rashes Results & Data Vital Signs (Past 12 Hours) Vital Signs Temp Pulse Resp BP Pulse Ox 02/21/19 17:01 70 22 115/58 L 95 02/21/19 16:00 36.7 C 70 16 131/60 98 02/21/19 15:20 72 14 135/69 100 02/21/19 15:00 69 14 77 L 02/21/19 14:00 70 20 132/75 99 02/21/19 13:01 72 20 134/62 99 02/21/19 12:01 36.5 C 17 135/44 L 100 02/21/19 11:00 73 19 122/64 99 02/21/19 10:00 70 17 140/67 100 02/21/19 09:41 74 21 126/65 94 02/21/19 09:37 71 19 119/57 L 98 02/21/19 09:34 70 19 128/69 100 02/21/19 09:25 68 15 117/70 99 02/21/19 09:00 71 18 140/76 100 02/21/19 08:00 36.6 C 70 23 159/69 H 98 02/21/19 07:15 65 02/21/19 07:00 60 22 150/68 H 99 Laboratory Results Laboratory Results - last 24 hr 02/20/19 02/20/19 02/20/19 17:01 18:50 20:43 WBC 10.16 RBC 3.98 L Hgb 11.4 L Hct 33.9 L MCV 85.2 MCH 28.6 MCHC 33.6 RDW Std Deviation 56.6 H RDW Coeff of Andrew 18.1 H Plt Count 291 MPV 10.4 PT INR Sodium 137 Potassium 4.2 Chloride 105 Carbon Dioxide 22 Anion Gap 10.0 BUN 59 H Creatinine 1.92 H D Est Cr Clr Drug Dosing 31.7 Est GFR ( Amer) 37.3 Est GFR (Non-Af Amer) 32.2 BUN/Creatinine Ratio 30.9 H Glucose 149 H POC Glucose Estimat Average Glucose Hemoglobin A1c Lactate 3.8 H* Calcium 9.1 Phosphorus Magnesium Troponin I Random Cortisol Nasal Screen MRSA (PCR) Stool Occult Bld Scrn Blood Type Antibody Screen Crossmatch 02/20/19 02/20/19 02/20/19 20:43 21:45 23:00 WBC RBC Hgb Hct MCV MCH MCHC RDW Std Deviation RDW Coeff of Andrew Plt Count MPV PT 19.0 H INR 1.9 H Sodium Potassium Chloride Carbon Dioxide Anion Gap BUN Creatinine Est Cr Clr Drug Dosing Est GFR ( Amer) Est GFR (Non-Af Amer) BUN/Creatinine Ratio Glucose POC Glucose Estimat Average Glucose Hemoglobin A1c Lactate Calcium Phosphorus Magnesium Troponin I Random Cortisol Nasal Screen MRSA (PCR) Negative Stool Occult Bld Scrn Blood Type O Positive Antibody Screen NEGATIVE Crossmatch See Detail 02/20/19 02/20/19 02/20/19 23:06 23:06 23:06 WBC RBC Hgb Hct MCV MCH MCHC RDW Std Deviation RDW Coeff of Andrew Plt Count MPV PT INR Sodium 134 L Potassium 4.7 Chloride 104 Carbon Dioxide 24 Anion Gap 7.0 BUN 60 H Creatinine 2.26 H D Est Cr Clr Drug Dosing 26.9 Est GFR ( Amer) 30.6 Est GFR (Non-Af Amer) 26.4 BUN/Creatinine Ratio 26.7 H Glucose 236 H POC Glucose Estimat Average Glucose Hemoglobin A1c Lactate 1.7 Calcium 8.6 Phosphorus Magnesium Troponin I < 0.015 Random Cortisol 73.42 Nasal Screen MRSA (PCR) Stool Occult Bld Scrn Blood Type Antibody Screen Crossmatch 02/21/19 02/21/19 02/21/19 00:13 01:42 04:16 WBC RBC Hgb 10.8 L Hct 32.1 L MCV MCH MCHC RDW Std Deviation RDW Coeff of Andrew Plt Count MPV PT INR Sodium Potassium Chloride Carbon Dioxide Anion Gap BUN Creatinine Est Cr Clr Drug Dosing Est GFR ( Amer) Est GFR (Non-Af Amer) BUN/Creatinine Ratio Glucose POC Glucose 225 H 297 H Estimat Average Glucose Hemoglobin A1c Lactate Calcium Phosphorus Magnesium Troponin I Random Cortisol Nasal Screen MRSA (PCR) Stool Occult Bld Scrn Blood Type Antibody Screen Crossmatch 02/21/19 02/21/19 02/21/19 04:59 04:59 04:59 WBC 11.76 H RBC 3.88 L Hgb 10.9 L Hct 32.8 L MCV 84.5 MCH 28.1 MCHC 33.2 RDW Std Deviation 55.8 H RDW Coeff of Andrew 18.0 H Plt Count 280 MPV 10.3 PT INR Sodium 134 L Potassium 4.8 Chloride 106 Carbon Dioxide 22 Anion Gap 6.0 BUN 55 H Creatinine 2.07 H Est Cr Clr Drug Dosing 29.4 Est GFR ( Amer) 34.0 Est GFR (Non-Af Amer) 29.4 BUN/Creatinine Ratio 26.5 H Glucose 270 H POC Glucose Estimat Average Glucose Hemoglobin A1c Lactate 1.3 Calcium 8.5 Phosphorus 3.7 Magnesium 2.0 Troponin I Random Cortisol Nasal Screen MRSA (PCR) Stool Occult Bld Scrn Blood Type Antibody Screen Crossmatch 02/21/19 02/21/19 02/21/19 04:59 04:59 06:26 WBC RBC Hgb Hct MCV MCH MCHC RDW Std Deviation RDW Coeff of Andrew Plt Count MPV PT 14.6 H INR 1.5 H Sodium Potassium Chloride Carbon Dioxide Anion Gap BUN Creatinine Est Cr Clr Drug Dosing Est GFR ( Amer) Est GFR (Non-Af Amer) BUN/Creatinine Ratio Glucose POC Glucose 267 H Estimat Average Glucose 232 Hemoglobin A1c 9.7 H Lactate Calcium Phosphorus Magnesium Troponin I Random Cortisol Nasal Screen MRSA (PCR) Stool Occult Bld Scrn Blood Type Antibody Screen Crossmatch 02/21/19 02/21/19 02/21/19 09:06 10:21 11:08 WBC RBC Hgb Hct MCV MCH MCHC RDW Std Deviation RDW Coeff of Andrew Plt Count MPV PT INR Sodium Potassium Chloride Carbon Dioxide Anion Gap BUN Creatinine Est Cr Clr Drug Dosing Est GFR ( Amer) Est GFR (Non-Af Amer) BUN/Creatinine Ratio Glucose POC Glucose 230 H 266 H 215 H Estimat Average Glucose Hemoglobin A1c Lactate Calcium Phosphorus Magnesium Troponin I Random Cortisol Nasal Screen MRSA (PCR) Stool Occult Bld Scrn Blood Type Antibody Screen Crossmatch 02/21/19 02/21/19 02/21/19 12:11 13:11 13:20 WBC RBC Hgb Hct MCV MCH MCHC RDW Std Deviation RDW Coeff of Andrew Plt Count MPV PT INR Sodium Potassium Chloride Carbon Dioxide Anion Gap BUN Creatinine Est Cr Clr Drug Dosing Est GFR ( Amer) Est GFR (Non-Af Amer) BUN/Creatinine Ratio Glucose POC Glucose 152 H 132 H Estimat Average Glucose Hemoglobin A1c Lactate Calcium Phosphorus Magnesium Troponin I Random Cortisol Nasal Screen MRSA (PCR) Stool Occult Bld Scrn Positive A Blood Type Antibody Screen Crossmatch 02/21/19 02/21/19 02/21/19 14:11 14:29 14:47 WBC RBC Hgb Hct MCV MCH MCHC RDW Std Deviation RDW Coeff of Andrew Plt Count MPV PT INR Sodium Potassium Chloride Carbon Dioxide Anion Gap BUN Creatinine Est Cr Clr Drug Dosing Est GFR ( Amer) Est GFR (Non-Af Amer) BUN/Creatinine Ratio Glucose POC Glucose 102 H 84 140 H Estimat Average Glucose Hemoglobin A1c Lactate Calcium Phosphorus Magnesium Troponin I Random Cortisol Nasal Screen MRSA (PCR) Stool Occult Bld Scrn Blood Type Antibody Screen Crossmatch 02/21/19 15:58 WBC RBC Hgb Hct MCV MCH MCHC RDW Std Deviation RDW Coeff of Andrew Plt Count MPV PT INR Sodium Potassium Chloride Carbon Dioxide Anion Gap BUN Creatinine Est Cr Clr Drug Dosing Est GFR ( Amer) Est GFR (Non-Af Amer) BUN/Creatinine Ratio Glucose POC Glucose 75 Estimat Average Glucose Hemoglobin A1c Lactate Calcium Phosphorus Magnesium Troponin I Random Cortisol Nasal Screen MRSA (PCR) Stool Occult Bld Scrn Blood Type Antibody Screen Crossmatch
[2019-02-21] MEDS ORDERED: [UNRECOGNIZED DRUG - REMARK] ONE (18:30)
[2019-02-21] MEDS: GABAPENTIN 300 MG CAP PO SCH (20:38)
[2019-02-21] MEDS: PRAVASTATIN SOD 40 MG TAB PO SCH (20:38)
[2019-02-21] MEDS: HYDROCORTISONE 10 MG TAB PO SCH (20:39)
[2019-02-21] MEDS: MONTELUKAST SODIUM 10 MG TABLET PO SCH (20:39)
[2019-02-21] MEDS ORDERED: INSULIN ASPART 100 UNITS/ML 3 ML PEN SC SCH (21:00)
[2019-02-21] MEDS ORDERED: INSULIN GLARGINE SOLOSTAR 100 UNITS/ML 3 ML PEN SC SCH ×2 (21:00)
[2019-02-22] MEDS ORDERED: INSULIN ASPART 100 UNITS/ML 3 ML PEN SC SCH (02:00)
[2019-02-22] MEDS: PANTOprazole 40 MG in DEXTROSE 5% 100 ML IV SCH ×3 (03:06→13:49)
[2019-02-22] MEDS: LEVOTHYROXINE SODIUM 75 MCG TABLET PO SCH (06:20)
[2019-02-22 06:32] LABS: Hematocrit (blood only) 31.7 % (42-52); Hemoglobin 10.1 g/dL (14.0-18.0); Mean Corpuscular Hemoglobin 27.5 pg (25-34); Mean Corpuscular Hgb Conc 31.9 g/dL (32-36); Mean Corpuscular Volume 86.4 fL (80-100); Mean Platelet Volume 9.9 fL (7.4-10.4); Platelet Count 284 K/uL (130-400); RDW Coefficient of Variation 17.8 % (11.5-14.5); Red Blood Count 3.67 M/uL (4.7-6.1); White Blood Count 12.48 K/uL (4.8-10.8)
[2019-02-22 06:41] LABS: INR 1.1 (0.9-1.1); Prothrombin Time 11.6 Seconds (9.0-12.0)
[2019-02-22 07:11] LABS: BUN Creatinine Ratio 21.4 (10-20); Calcium 8.7 mg/dl (8.5-10.1); Creatinine Clr Calc Pharmacy 41.4 ml/min; Est GFR (African American) 51.5; Est GFR (Non-African American) 44.4; Potassium 4.1 mmol/L (3.5-5.1)
[2019-02-22] MEDS ORDERED: INSULIN GLARGINE SOLOSTAR 100 UNITS/ML 3 ML PEN SC ONE (07:30)
[2019-02-22] MEDS: POLYETHYLENE (MIRALAX) 17 GM PACK PO SCH (08:20)
[2019-02-22] MEDS: HYDROCORTISONE 10 MG TAB PO SCH ×2 (08:21→21:11)
[2019-02-22] MEDS: AMIODARONE 200 MG TAB PO SCH (08:21)
[2019-02-22] MEDS: BUDESONIDE/FORMOTEROL FUMARATE 160/4.5 60 PUFFS/INHALER INH SCH ×2 (08:22→21:13)
[2019-02-22] MEDS: INSULIN ASPART 100 UNITS/ML 3 ML PEN SC SCH ×4 (08:27→21:17)
[2019-02-22] MEDS: METOPROLOL SUCC 25MG EXT REL TAB PO SCH (08:28)
--- NOTE | 2019-02-22 09:00 | Gastroenterology Progress Note ---
Date of Service February 22, 2019 Assessment & Plan (1) Lower GI bleed: Most likely differential includes diverticular bleed vs ischemic colitis vs hemorrhoidal bleeding exacerbated by ASA, Plavix, & Coumadin. H/H stable at 10.1/31.7. Patient has not had further bleeding. -Continue with conservative management. Patient is not interested in invasive testing at the present time as well. -Continue with bowel regimen to prevent constipation; Continue hydrocortisone for hemorrhoid treatment. Patient should consider a powdered fiber supplement as an outpatient given his history of extensive diverticular disease as well as hemorrhoids. -Can continue with antibiotics empirically for the possibility of ischemic colitis for 10-14 days total. -Continue to follow H/H and monitor for return of GI bleeding. Thank you for allowing us to participate in the care of this patient. If you should have any questions or concerns, do not hesitate to contact us at [phone] or [phone]. Present on Admission?: No Supervising Physician Co-Signing Physician Notes Agree with Danielle Chao PAC Abd: Soft, NT, ND Continue current therapy H/H Stable No plans for invasive workup Subjective Mr. Greer is an 78 yo male hospitalized with dizziness, weakness, EDA, & an episode of bright red blood per rectum. The patient has had no further bleeding. He reports he is evacuating his bowels more completely since yesterday. He denies further abdominal pain or discomfort. He reports he is cold, but denies further issues otherwise. His H/H today is 10.1/31.7. BUN/Cr with significant improvement at 31/1.47. He continues on BID PPI therapy and was empirically placed on Zosyn for possible ischemic colitis. He is using hydrocortisone suppositories for hemorrhoids. Review of Systems Constitutional: no fever and no chills Cardiovascular: no chest pain Gastrointestinal: no abdominal pain, no constipation and no blood in stools Neurologic: no dizziness Physical Exam Constitutional: WD/WN, vitals as above Respiratory: normal respiratory effort, lungs clear to auscultation Cardiovascular: Rate/Rhythm: + irregularly irregular Gastrointestinal (Abdomen): normal bowel sounds, soft, nontender, no hepatosplenomegaly Psychiatric: A+Ox3, euthymic affect Results & Data Vital Signs (Past 12 Hours) Vital Signs Temp Pulse Pulse Pulse Resp BP BP 02/22/19 08:17 37 C 70 16 123/55 L 02/22/19 04:57 85 02/22/19 02:55 37.1 C 67 20 128/61 02/21/19 23:55 36.8 C 20 98/57 L Pulse Ox 02/22/19 08:17 95 02/22/19 04:57 02/22/19 02:55 91 02/21/19 23:55 94 PG Care Time/CCT Total # of Minutes Spent Total Time Spent with Patient: Total time spent is greater than 50% in coordination of care (as documented) at patient's floor/unit and/or counseling patient:
[2019-02-22] MEDS: HYDROCORTISONE HC 2.5% CRM 30GM TUBE EXT SCH ×2 (10:27→21:13)
[2019-02-22] MEDS: HYDROCORTISONE ACETATE 25 MG SUPP PR SCH ×2 (10:27→21:12)
--- NOTE | 2019-02-22 12:27 | Pharmacy Report ---
Pharmacy Glycemic Short Note 2 - Date of Service February 22, 2019 - Glycemic Short BSG Results (Last 24 hours): 02/21/19 02/21/19 02/21/19 12:11 13:11 14:11 Glucose POC Glucose 152 H 132 H 102 H 02/21/19 02/21/19 02/21/19 14:29 14:47 15:58 Glucose POC Glucose 84 140 H 75 02/21/19 02/22/19 02/22/19 20:27 01:38 06:07 Glucose 163 H POC Glucose 118 H 173 H 02/22/19 02/22/19 07:42 11:10 Glucose POC Glucose 159 H 196 H OUTPATIENT ANTIDIABETIC REGIMEN: * Lantus 25 units SQ Q HS * A1c = 8.3% 09/05/18 ASSESSMENT: 02/22/19 * IV Hydrocortisone discontinued yesterday, changed back to home PO dose * Patient remains on IV Protonix drip * Patient on full liquid diet * Repeat A1c 9.7% * Patient transitioned from IV insulin drip to SQ yesterday * Patient had total of 12 units of Lantus yesterday, will give supplemental dose this AM, and then resume home HS dose tonight 02/21/19 * Type 2 diabetic admitted to ICU for EDA, dehydration, possible lower GIB * Patient became hyperglycemic overnight despite SQ basal/bolus doses, likely due to stress of illness combined with stress dose IV hydrocortisone * IV insulin infusion initiated this AM due to BSGs in mid-200s * Stress dose IV hydrocortisone is now being d/c'd and will resume out-pt PO hydrocortisone regimen this evening. Diet has been ordered. * Will resume basal/bolus SQ regimen with dinnertime meal as the effects of stress dose HC should be minimal at that time. * Plan to overlap insulin drip w/ SQ Lantus by 2 hrs. PLAN FOR INPATIENT GLYCEMIC CONTROL: * Basal insulin * Lantus 10 units x 1 this AM, then 25 units HS * Bolus insulin * NovoLog per scale ACHS * Goal Range: Low 110 mg/dL - High 140 mg/dL * Correction Factor: 30 mg/dL/unit * Nutritional / Prandial insulin per carb ratio of 1 unit per 10 grams CHO consumed
[2019-02-22] MEDS ORDERED: metroNIDAZOLE 500 MG TAB PO SCH (15:00)
[2019-02-22] MEDS ORDERED: CIPROFLOXACIN 250 MG TAB PO SCH (15:00)
--- NOTE | 2019-02-22 15:46 | Nephrology Progress Note ---
Date of Service February 22, 2019 Assessment & Plan (1) Acute kidney injury: Patient with EDA on CKD likely due to GI bleed and hypotension. He is at risk for progression to ATN. Cr is better today at 1.4. Baseline cr 1.4-1.7. No hydronephrosis on CT evidence of chronic bladder outlet obstruction. -Monitor with daily BMP -No contrast unless life saving -No need for IV fluids. (2) Lower GI bleed: Unclear etiology but appears to have stopped. GI recommend conservative management. Monitor and transfuse as needed. (3) Hypertension: BP is better today. Baseline systolic BP in the 150's and now pt in the 110's. Agree with holding antihypertensives. Subjective Patient feels better today. No shortness of breath or pain. No urinary symptoms. He was doing physical therapy at the time of my visit. Creatinine is downtrending. Review of Systems Review of Systems: All systems reviewed & are unremarkable except as noted in HPI & below Physical Exam Physical Exam: General exam: Appears comfortable, no acute distress HEENT: Pupils are equal and reactive to light Neck: No JVD, neck is supple trachea is midline Respiratory system: Clear breath sounds bilaterally. Gastrointestinal: Abdomen is soft, non distended, non tender, bowel sounds are present CVS: Regular rate and rhythm. No murmurs, rubs or gallops Musculoskeletal: No joint or muscle tenderness Extremities: Non tender, no edema, peripheral pulses are present Neuro: Oriented, no tremors, no focal neurological deficits Skin: No rashes Results & Data Vital Signs (Past 12 Hours) Vital Signs Temp Pulse Pulse Resp BP Pulse Ox 02/22/19 11:35 36.5 C 70 18 137/69 95 02/22/19 08:17 37 C 70 16 123/55 L 95 02/22/19 04:57 85 Laboratory Results Laboratory Results - last 24 hr 02/21/19 02/21/19 02/21/19 15:58 17:25 20:27 WBC RBC Hgb Hct MCV MCH MCHC RDW Std Deviation RDW Coeff of Andrew Plt Count MPV PT INR Sodium Potassium Chloride Carbon Dioxide Anion Gap BUN Creatinine Est Cr Clr Drug Dosing Est GFR ( Amer) Est GFR (Non-Af Amer) BUN/Creatinine Ratio Glucose POC Glucose 75 118 H Lactate 4.2 H* Calcium 02/22/19 02/22/19 02/22/19 01:38 06:07 06:07 WBC 12.48 H RBC 3.67 L Hgb 10.1 L Hct 31.7 L MCV 86.4 MCH 27.5 MCHC 31.9 L RDW Std Deviation 56.0 H RDW Coeff of Andrew 17.8 H Plt Count 284 MPV 9.9 PT INR Sodium Potassium Chloride Carbon Dioxide Anion Gap BUN Creatinine Est Cr Clr Drug Dosing Est GFR ( Amer) Est GFR (Non-Af Amer) BUN/Creatinine Ratio Glucose POC Glucose 173 H Lactate 1.4 Calcium 02/22/19 02/22/19 02/22/19 06:07 06:07 07:42 WBC RBC Hgb Hct MCV MCH MCHC RDW Std Deviation RDW Coeff of Andrew Plt Count MPV PT 11.6 INR 1.1 Sodium 136 Potassium 4.1 Chloride 107 Carbon Dioxide 23 Anion Gap 6.0 BUN 31 H Creatinine 1.47 H D Est Cr Clr Drug Dosing 41.4 Est GFR ( Amer) 51.5 Est GFR (Non-Af Amer) 44.4 BUN/Creatinine Ratio 21.4 H Glucose 163 H POC Glucose 159 H Lactate Calcium 8.7 02/22/19 11:10 WBC RBC Hgb Hct MCV MCH MCHC RDW Std Deviation RDW Coeff of Andrew Plt Count MPV PT INR Sodium Potassium Chloride Carbon Dioxide Anion Gap BUN Creatinine Est Cr Clr Drug Dosing Est GFR ( Amer) Est GFR (Non-Af Amer) BUN/Creatinine Ratio Glucose POC Glucose 196 H Lactate Calcium
[2019-02-22] MEDS: AMOXICILLIN/CLAVULANATE 875 MG TAB PO SCH (16:37)
--- NOTE | 2019-02-22 17:49 | Hospitalist Progress Note ---
Date of Service February 22, 2019 Assessment & Plan (1) Lower GI bleed: Lower GI bleed: possible diverticular bleed CT abdomen pelvis noncontrast : Shows no evidence of bowel thickening, chronic diverticulosis without any diverticulitis hg 10.1 from 10.8 but no signs of active bleeding INR 1.1 GI consulted, no plans for Colonoscopy continue to monitor H&H HOLD coumadin, Plavix continue on Augmentin for possible Bowel Ischemia Acute Renal Failure on Chronic CKD: CKD stage III with creatinine 1.1 Admitted with creatinine 2.2 possible secondary to dehydration GI bleed Diuretics held, given IV fluids crea 1.4 (baseline) Nephrology consulted Avoid contrast studies /NSAIDs Coronary artery disease: per Dr. Coronado notes: Severe extensive coronary artery disease with multivessel occlusion noted in cardiac cath at [facility] on 04/29/2018: Left main 30% stenosis Left anterior descending 80% stenosis Left circumflex coronary artery 80% stenosis 100% stenosis of the right coronary artery with [id number] collaterals Echocardiogram: 01/23/2019: Basal inferior wall akinetic, mild and apical segment of the inferior wall is hypokinetic, the posterior wall is hypokinetic LV ejection fraction 39% - was on Plavix /aspirin /beta-alex /statin /SHERLYN inhibitor All of the above meds kept on hold secondary to GI bleed Metoprolol /statin resumed cont to hold dual antiplatelets given recent GI bleed will need to D/w GI regarding safe time to resume Aspirin and Plavix CHRONIC A. FIB Coumadin held given Vit K, INR 1.1 resumed Beta alex ADRENAL INSUFFICIENCY On p.o. hydrocortisone chronically 30 mg daily was started on IV Hydrocortisone 100 mg TID -- usual PO Hydrocortisone resumed Severe ischemic cardiomyopathy Volume status stable Diuretics kept on hold secondary to acute renal failure GI bleed Type 2 diabetes pharmacy following for glycemic managment Confusion/metabolic encephalopathy per Dr. Coronado notes resolved mental status improved to baseline Presented with confusion weakness forgetfulness Metabolic encephalopathy in the setting of acute GI bleed lactic acidosis, GI bleed Mental status improved after IV hydration, awake oriented x3 conversing appropriately CT head negative for any acute change CODE STATUS: Full code DVT prophylaxis: SCD and teds avoid pharmacological anticoagulation in the setting of GI bleed Disposition: pending will need PT/OT eval usually lives with family Subjective ff up for lower GI bleed seen resting in bed, comfortable just had lunch, no recurrence of GI bleed, no abdominal pain/nausea /vomiting denies chest pain, dyspnea, dizziness no other symptoms Review of Systems Review of Systems: All systems reviewed & are unremarkable except as noted in HPI & below Physical Exam Physical Exam: General- oriented x 3, not in distress, speaks in sentences with no effort or accessory muscle use Eyes- anicteric Neck- no JVD Lungs- clear breath sounds bilaterally, no rales/wheezes Heart- normal rate, regular rhythm; no murmurs Abdomen- normal bowel sounds, nondistended, soft, nontender Extremities- no pretibial edema, no calf tenderness Neuro- alert, oriented x 3; no gross focal neurologic deficits Skin- warm & dry Results & Data Vital Signs (Past 12 Hours) Vital Signs Temp Pulse Pulse Resp BP Pulse Ox 02/22/19 16:30 70 02/22/19 16:03 37.1 C 70 20 134/66 97 02/22/19 11:35 36.5 C 70 18 137/69 95 02/22/19 08:17 37 C 70 16 123/55 L 95 Laboratory Results Laboratory Results - last 24 hr 02/21/19 02/21/19 02/22/19 17:25 20:27 01:38 WBC RBC Hgb Hct MCV MCH MCHC RDW Std Deviation RDW Coeff of Andrew Plt Count MPV PT INR Sodium Potassium Chloride Carbon Dioxide Anion Gap BUN Creatinine Est Cr Clr Drug Dosing Est GFR ( Amer) Est GFR (Non-Af Amer) BUN/Creatinine Ratio Glucose POC Glucose 118 H 173 H Lactate 4.2 H* Calcium 02/22/19 02/22/19 02/22/19 06:07 06:07 06:07 WBC 12.48 H RBC 3.67 L Hgb 10.1 L Hct 31.7 L MCV 86.4 MCH 27.5 MCHC 31.9 L RDW Std Deviation 56.0 H RDW Coeff of Andrew 17.8 H Plt Count 284 MPV 9.9 PT INR Sodium 136 Potassium 4.1 Chloride 107 Carbon Dioxide 23 Anion Gap 6.0 BUN 31 H Creatinine 1.47 H D Est Cr Clr Drug Dosing 41.4 Est GFR ( Amer) 51.5 Est GFR (Non-Af Amer) 44.4 BUN/Creatinine Ratio 21.4 H Glucose 163 H POC Glucose Lactate 1.4 Calcium 8.7 02/22/19 02/22/19 02/22/19 06:07 07:42 11:10 WBC RBC Hgb Hct MCV MCH MCHC RDW Std Deviation RDW Coeff of Andrew Plt Count MPV PT 11.6 INR 1.1 Sodium Potassium Chloride Carbon Dioxide Anion Gap BUN Creatinine Est Cr Clr Drug Dosing Est GFR ( Amer) Est GFR (Non-Af Amer) BUN/Creatinine Ratio Glucose POC Glucose 159 H 196 H Lactate Calcium 02/22/19 16:28 WBC RBC Hgb Hct MCV MCH MCHC RDW Std Deviation RDW Coeff of Andrew Plt Count MPV PT INR Sodium Potassium Chloride Carbon Dioxide Anion Gap BUN Creatinine Est Cr Clr Drug Dosing Est GFR ( Amer) Est GFR (Non-Af Amer) BUN/Creatinine Ratio Glucose POC Glucose 124 H Lactate Calcium
[2019-02-22 18:45] LABS: RMSF IgG Ab Not Detected (Not Detected); RMSF IgM Ab Not Detected (Not Detected)
[2019-02-22] MEDS ORDERED: INSULIN GLARGINE SOLOSTAR 100 UNITS/ML 3 ML PEN SC SCH (21:00)
[2019-02-22] MEDS: GABAPENTIN 300 MG CAP PO SCH (21:12)
[2019-02-22] MEDS: PRAVASTATIN SOD 40 MG TAB PO SCH (21:12)
[2019-02-22] MEDS: MONTELUKAST SODIUM 10 MG TABLET PO SCH (21:13)
[2019-02-23] MEDS: LEVOTHYROXINE SODIUM 75 MCG TABLET PO SCH (05:46)
[2019-02-23 06:12] LABS: INR 1.1 (0.9-1.1); Prothrombin Time 11.1 Seconds (9.0-12.0)
[2019-02-23 06:30] LABS: BUN Creatinine Ratio 16.4 (10-20); Calcium 8.9 mg/dl (8.5-10.1); Creatinine Clr Calc Pharmacy 47.9 ml/min; Est GFR (African American) 61.4
[2019-02-23] MEDS: METOPROLOL SUCC 25MG EXT REL TAB PO SCH (08:23)
[2019-02-23] MEDS: AMIODARONE 200 MG TAB PO SCH (08:24)
[2019-02-23] MEDS: PANTOprazole 40 MG TAB PO SCH (08:24)
[2019-02-23] MEDS: HYDROCORTISONE 10 MG TAB PO SCH ×2 (08:24→22:07)
[2019-02-23] MEDS: AMOXICILLIN/CLAVULANATE 875 MG TAB PO SCH ×2 (08:24→17:22)
[2019-02-23] MEDS: BUDESONIDE/FORMOTEROL FUMARATE 160/4.5 60 PUFFS/INHALER INH SCH ×2 (08:26→22:08)
[2019-02-23] MEDS: INSULIN ASPART 100 UNITS/ML 3 ML PEN SC SCH ×4 (08:30→22:04)
[2019-02-23] MEDS: HYDROCORTISONE ACETATE 25 MG SUPP PR SCH ×2 (08:32→22:06)
[2019-02-23] MEDS: HYDROCORTISONE HC 2.5% CRM 30GM TUBE EXT SCH ×2 (08:33→22:07)
[2019-02-23] MEDS: POLYETHYLENE (MIRALAX) 17 GM PACK PO SCH (08:33)
--- NOTE | 2019-02-23 09:58 | Nephrology Progress Note ---
Date of Service February 23, 2019 Assessment & Plan (1) Acute kidney injury: Patient with EDA on CKD likely due to GI bleed and hypotension. He is at risk for progression to ATN. Cr is better today at 1.27. No hydronephrosis on CT evidence of chronic bladder outlet obstruction. -Monitor with daily BMP -No contrast unless life saving -No need for IV fluids. (2) Lower GI bleed: Unclear etiology but appears to have stopped. GI recommend conservative management. Monitor and transfuse as needed. (3) Hypertension: BP is better today. Baseline systolic BP in the 150's and now pt in the 110's. Agree with holding antihypertensives. Subjective He feels better today no further episodes of bloody stool. Creatinine is downtrending. No vomiting, diarrhea or urinary symptoms. Review of Systems Review of Systems: All systems reviewed & are unremarkable except as noted in HPI & below Physical Exam Physical Exam: General exam: Appears comfortable, no acute distress HEENT: Pupils are equal and reactive to light Neck: No JVD, neck is supple trachea is midline Respiratory system: Clear breath sounds bilaterally. Gastrointestinal: Abdomen is soft, non distended, non tender, bowel sounds are present CVS: Regular rate and rhythm. No murmurs, rubs or gallops Musculoskeletal: No joint or muscle tenderness Extremities: Non tender, no edema, peripheral pulses are present Neuro: Oriented, no tremors, no focal neurological deficits Skin: No rashes Results & Data Vital Signs (Past 12 Hours) Vital Signs Temp Pulse Pulse Resp BP BP Pulse Ox 02/23/19 08:22 84 100/68 02/23/19 06:56 36.4 C L 64 19 134/64 94 02/23/19 04:14 36.6 C 62 19 138/66 98 02/22/19 23:59 70 02/22/19 23:30 36.9 C 74 18 138/69 95 Laboratory Results Laboratory Results - last 24 hr 02/20/19 02/22/19 02/22/19 10:55 11:10 16:28 PT INR Sodium Potassium Chloride Carbon Dioxide Anion Gap BUN Creatinine Est Cr Clr Drug Dosing Est GFR ( Amer) Est GFR (Non-Af Amer) BUN/Creatinine Ratio Glucose POC Glucose 196 H 124 H Calcium Rickettsia IgG Ab Not Detected Rickettsia IgM Ab Not Detected 02/22/19 02/23/19 02/23/19 20:34 05:26 05:26 PT 11.1 INR 1.1 Sodium 137 Potassium 4.0 Chloride 108 H Carbon Dioxide 24 Anion Gap 5.0 BUN 21 H Creatinine 1.27 Est Cr Clr Drug Dosing 47.9 Est GFR ( Amer) 61.4 Est GFR (Non-Af Amer) 53.0 BUN/Creatinine Ratio 16.4 Glucose 185 H POC Glucose 110 H Calcium 8.9 Rickettsia IgG Ab Rickettsia IgM Ab 02/23/19 07:20 PT INR Sodium Potassium Chloride Carbon Dioxide Anion Gap BUN Creatinine Est Cr Clr Drug Dosing Est GFR ( Amer) Est GFR (Non-Af Amer) BUN/Creatinine Ratio Glucose POC Glucose 166 H Calcium Rickettsia IgG Ab Rickettsia IgM Ab
[2019-02-23 10:24] LABS: Hematocrit (blood only) 30.1 % (42-52); Hemoglobin 9.7 g/dL (14.0-18.0)
--- NOTE | 2019-02-23 10:53 | Pharmacy Report ---
Pharmacy Glycemic Short Note 2 - Date of Service February 23, 2019 - Glycemic Short BSG Results (Last 24 hours): 02/22/19 02/22/19 02/22/19 11:10 16:28 20:34 Glucose POC Glucose 196 H 124 H 110 H 02/23/19 02/23/19 05:26 07:20 Glucose 185 H POC Glucose 166 H OUTPATIENT ANTIDIABETIC REGIMEN: * Lantus 25 units SQ Q HS * A1c = 8.3% 09/05/18 ASSESSMENT: 02/23/19 * Patient remains on outpatient dosing of hydrocortisone therapy - minimal effect on BSG secondary to low glucocorticoid potency. * Pt has received 52 units of insulin over the past 24hrs * 35 units of basal * 17 units of prandial {lower prandial dosing d/t full liquid diet} * BSGs ranging 110-196mg/dl * AM fasting BSG is in goal range for age/co-morbidities @ 166 mg/dl this morning. Pt received 35 units of basal insulin yesterday but suspect that this may be too much with repeat dosing. Increased dose needed yesterday for conservative drip transition basal insulin dose given 02/21 (only 12 units). Will give 30 units of basal insulin this evening and continue to titrate based on BSG trends. * Post-prandial BSGs in goal range --> no changes needed to CF/CR dosing. Diet advanced today to T2DM 02/22/19 * IV Hydrocortisone discontinued yesterday, changed back to home PO dose * Patient remains on IV Protonix drip * Patient on full liquid diet * Repeat A1c 9.7% * Patient transitioned from IV insulin drip to SQ yesterday * Patient had total of 12 units of Lantus yesterday, will give supplemental dose this AM, and then resume home HS dose tonight 02/21/19 * Type 2 diabetic admitted to ICU for EDA, dehydration, possible lower GIB * Patient became hyperglycemic overnight despite SQ basal/bolus doses, likely due to stress of illness combined with stress dose IV hydrocortisone * IV insulin infusion initiated this AM due to BSGs in mid-200s * Stress dose IV hydrocortisone is now being d/c'd and will resume out-pt PO hydrocortisone regimen this evening. Diet has been ordered. * Will resume basal/bolus SQ regimen with dinnertime meal as the effects of stress dose HC should be minimal at that time. * Plan to overlap insulin drip w/ SQ Lantus by 2 hrs. PLAN FOR INPATIENT GLYCEMIC CONTROL: * Basal insulin * Lantus 30 units SQ HS * Bolus insulin: no change * NovoLog per scale ACHS * Goal Range: Low 110 mg/dL - High 140 mg/dL * Correction Factor: 25 mg/dL/unit * Nutritional / Prandial insulin per carb ratio of 1 unit per 9 grams CHO consumed
[2019-02-23] MEDS ORDERED: WARFARIN SOD 3 MG TAB PO SCH (16:00)
--- NOTE | 2019-02-23 17:22 | Hospitalist Progress Note ---
Date of Service February 23, 2019 Assessment & Plan (1) Lower GI bleed: Lower GI bleed: possible diverticular bleed CT abdomen pelvis noncontrast : Shows no evidence of bowel thickening, chronic diverticulosis without any diverticulitis hg 9.7 from 10.8 but no signs of active bleeding INR 1.1 GI consulted, no plans for Colonoscopy continue to monitor H&H Discussed with GI, okay to resume Coumadin and Plavix continue on Augmentin for possible Bowel Ischemia Acute Renal Failure on Chronic CKD: CKD stage III with creatinine 1.1 Admitted with creatinine 2.2 possible secondary to dehydration GI bleed Diuretics held, given IV fluids crea 1.4 (baseline) Nephrology consulted Avoid contrast studies /NSAIDs --Resume diuretics tomorrow Coronary artery disease: per Dr. Coronado notes: Severe extensive coronary artery disease with multivessel occlusion noted in cardiac cath at [facility] on 04/29/2018: Left main 30% stenosis Left anterior descending 80% stenosis Left circumflex coronary artery 80% stenosis 100% stenosis of the right coronary artery with [id number] collaterals Echocardiogram: 01/23/2019: Basal inferior wall akinetic, mild and apical segment of the inferior wall is hypokinetic, the posterior wall is hypokinetic LV ejection fraction 39% - was on Plavix /aspirin /beta-alex /statin /SHERLYN inhibitor All of the above meds kept on hold secondary to GI bleed Metoprolol /statin resumed --Resume Plavix tomorrow CHRONIC A. FIB Coumadin held given Vit K, INR 1.1 resumed Beta alex Resume Coumadin today ADRENAL INSUFFICIENCY On p.o. hydrocortisone chronically 30 mg daily was started on IV Hydrocortisone 100 mg TID -- usual PO Hydrocortisone resumed Severe ischemic cardiomyopathy Volume status stable Restart diuretics tomorrow Type 2 diabetes pharmacy following for glycemic management Confusion/metabolic encephalopathy per Dr. Coronado notes resolved mental status improved to baseline Presented with confusion weakness forgetfulness Metabolic encephalopathy in the setting of acute GI bleed lactic acidosis, GI bleed Mental status improved after IV hydration, awake oriented x3 conversing appropriately CT head negative for any acute change CODE STATUS: Full code DVT prophylaxis: SCD and teds avoid pharmacological anticoagulation in the setting of GI bleed Coumadin started today Disposition: pending will need PT/OT eval usually lives with family Subjective Follow-up for lower GI bleed Resting in bed, comfortable, in good spirits Denies melena hematochezia, no abdominal pain No chest pain no shortness of breath no palpitations, dizziness No other symptoms Review of Systems Review of Systems: All systems reviewed & are unremarkable except as noted in HPI & below Physical Exam Physical Exam: General- oriented x 3, not in distress, speaks in sentences with no effort or accessory muscle use Eyes- anicteric Neck- no JVD Lungs- clear breath sounds bilaterally, no rales/wheezes Heart- normal rate, regular rhythm; no murmurs Abdomen- normal bowel sounds, nondistended, soft, nontender Extremities- no pretibial edema, no calf tenderness Neuro- alert, oriented x 3; no gross focal neurologic deficits Skin- warm & dry Results & Data Vital Signs (Past 12 Hours) Vital Signs Temp Pulse Resp BP BP Pulse Ox 02/23/19 15:06 36.7 C 74 19 153/68 H 97 02/23/19 11:50 36.4 C L 70 18 161/74 H 98 02/23/19 08:22 84 100/68 02/23/19 06:56 36.4 C L 64 19 134/64 94 Laboratory Results Laboratory Results - last 24 hr 02/20/19 02/22/19 02/23/19 10:55 20:34 05:26 Hgb Hct PT INR Sodium 137 Potassium 4.0 Chloride 108 H Carbon Dioxide 24 Anion Gap 5.0 BUN 21 H Creatinine 1.27 Est Cr Clr Drug Dosing 47.9 Est GFR ( Amer) 61.4 Est GFR (Non-Af Amer) 53.0 BUN/Creatinine Ratio 16.4 Glucose 185 H POC Glucose 110 H Calcium 8.9 Rickettsia IgG Ab Not Detected Rickettsia IgM Ab Not Detected 02/23/19 02/23/19 02/23/19 05:26 05:26 07:20 Hgb 9.7 L Hct 30.1 L PT 11.1 INR 1.1 Sodium Potassium Chloride Carbon Dioxide Anion Gap BUN Creatinine Est Cr Clr Drug Dosing Est GFR ( Amer) Est GFR (Non-Af Amer) BUN/Creatinine Ratio Glucose POC Glucose 166 H Calcium Rickettsia IgG Ab Rickettsia IgM Ab 02/23/19 02/23/19 11:27 15:56 Hgb Hct PT INR Sodium Potassium Chloride Carbon Dioxide Anion Gap BUN Creatinine Est Cr Clr Drug Dosing Est GFR ( Amer) Est GFR (Non-Af Amer) BUN/Creatinine Ratio Glucose POC Glucose 208 H 184 H Calcium Rickettsia IgG Ab Rickettsia IgM Ab
[2019-02-23] MEDS ORDERED: INSULIN GLARGINE SOLOSTAR 100 UNITS/ML 3 ML PEN SC SCH (21:00)
[2019-02-23] MEDS: PRAVASTATIN SOD 40 MG TAB PO SCH (22:07)
[2019-02-23] MEDS: GABAPENTIN 300 MG CAP PO SCH (22:07)
[2019-02-23] MEDS: MONTELUKAST SODIUM 10 MG TABLET PO SCH (22:08)
[2019-02-24 05:01] LABS: INR 1.1 (0.9-1.1); Prothrombin Time 10.8 Seconds (9.0-12.0)
[2019-02-24 05:07] LABS: BUN Creatinine Ratio 12.5 (10-20); Calcium 9.1 mg/dl (8.5-10.1); Creatinine Clr Calc Pharmacy 47.9 ml/min; Est GFR (African American) 61.4; Potassium 3.9 mmol/L (3.5-5.1)
[2019-02-24] MEDS: LEVOTHYROXINE SODIUM 75 MCG TABLET PO SCH (06:48)
[2019-02-24 08:14] LABS: Hematocrit (blood only) 30.8 % (42-52); Hemoglobin 10.1 g/dL (14.0-18.0)
[2019-02-24] MEDS: INSULIN ASPART 100 UNITS/ML 3 ML PEN SC SCH (08:36)
[2019-02-24] MEDS: AMOXICILLIN/CLAVULANATE 875 MG TAB PO SCH (08:37)
[2019-02-24] MEDS: AMIODARONE 200 MG TAB PO SCH (08:38)
[2019-02-24] MEDS: PANTOprazole 40 MG TAB PO SCH (08:39)
[2019-02-24 08:40] LABS: INR 1.1 (0.9-1.1); Prothrombin Time 10.9 Seconds (9.0-12.0)
[2019-02-24] MEDS: METOPROLOL SUCC 25MG EXT REL TAB PO SCH (08:40)
[2019-02-24] MEDS: BUDESONIDE/FORMOTEROL FUMARATE 160/4.5 60 PUFFS/INHALER INH SCH (08:40)
[2019-02-24] MEDS ORDERED: TORSEMIDE 10 MG TAB PO SCH (09:00)
[2019-02-24] MEDS ORDERED: SPIRONOLACTONE 25 MG TAB PO SCH (09:00)
[2019-02-24] MEDS ORDERED: CLOPIDOGREL BISULFATE 75 MG TAB PO SCH (09:00)
[2019-02-24] MEDS: HYDROCORTISONE ACETATE 25 MG SUPP PR SCH (10:04)
[2019-02-24] MEDS: HYDROCORTISONE HC 2.5% CRM 30GM TUBE EXT SCH (10:05)
[2019-02-24] MEDS: POLYETHYLENE (MIRALAX) 17 GM PACK PO SCH (10:05)
--- NOTE | 2019-02-24 10:13 | Nephrology Progress Note ---
Date of Service February 24, 2019 Assessment & Plan (1) Acute kidney injury: Patient with EDA on CKD likely due to GI bleed and hypotension. He is at risk for progression to ATN. Cr is stable at 1.27. No hydronephrosis on CT evidence of chronic bladder outlet obstruction. -Monitor with daily BMP -No contrast unless life saving -If discharged patient can follow-up with PCP and referred to nephrology as needed (2) Lower GI bleed: Unclear etiology but appears to have stopped. GI recommend conservative management. Monitor and transfuse as needed. (3) Hypertension: BP is above target today. Resume home antihypertensives. Baseline systolic BP in the 150's. Subjective Feels better. No shortness of breath or urinary symptoms. No episodes of bloody stool. Hemoglobin is stable. Review of Systems Review of Systems: All systems reviewed & are unremarkable except as noted in HPI & below Physical Exam Physical Exam: General exam: Appears comfortable, no acute distress HEENT: Pupils are equal and reactive to light Neck: No JVD, neck is supple trachea is midline Respiratory system: Clear breath sounds bilaterally. Gastrointestinal: Abdomen is soft, non distended, non tender, bowel sounds are present CVS: Regular rate and rhythm. No murmurs, rubs or gallops Musculoskeletal: No joint or muscle tenderness Extremities: Non tender, no edema, peripheral pulses are present Neuro: Oriented, no tremors, no focal neurological deficits Skin: No rashes Results & Data Vital Signs (Past 12 Hours) Vital Signs Temp Pulse Pulse Resp BP Pulse Ox 02/24/19 09:21 63 02/24/19 07:55 36.6 C 62 19 156/75 H 94 02/24/19 04:48 36.5 C 68 16 177/68 H 95 02/23/19 23:09 36.7 C 70 16 151/74 H 95 Laboratory Results Laboratory Results - last 24 hr 02/20/19 02/23/19 02/23/19 20:43 05:26 11:27 Hgb 9.7 L Hct 30.1 L PT INR Sodium Potassium Chloride Carbon Dioxide Anion Gap BUN Creatinine Est Cr Clr Drug Dosing Est GFR ( Amer) Est GFR (Non-Af Amer) BUN/Creatinine Ratio Glucose POC Glucose 208 H Calcium Crossmatch See Detail 02/23/19 02/23/19 02/24/19 15:56 20:23 04:31 Hgb Hct PT INR Sodium 139 Potassium 3.9 Chloride 109 H Carbon Dioxide 24 Anion Gap 6.0 BUN 16 Creatinine 1.27 Est Cr Clr Drug Dosing 47.9 Est GFR ( Amer) 61.4 Est GFR (Non-Af Amer) 53.0 BUN/Creatinine Ratio 12.5 Glucose 156 H POC Glucose 184 H 131 H Calcium 9.1 Crossmatch 02/24/19 02/24/19 02/24/19 04:31 04:36 07:38 Hgb 10.1 L Hct 30.8 L PT 10.8 INR 1.1 Sodium Potassium Chloride Carbon Dioxide Anion Gap BUN Creatinine Est Cr Clr Drug Dosing Est GFR ( Amer) Est GFR (Non-Af Amer) BUN/Creatinine Ratio Glucose POC Glucose 178 H Calcium Crossmatch 02/24/19 08:18 Hgb Hct PT 10.9 INR 1.1 Sodium Potassium Chloride Carbon Dioxide Anion Gap BUN Creatinine Est Cr Clr Drug Dosing Est GFR ( Amer) Est GFR (Non-Af Amer) BUN/Creatinine Ratio Glucose POC Glucose Calcium Crossmatch
[2019-02-24] MEDS: HYDROCORTISONE 10 MG TAB PO SCH (10:41)
--- NOTE | 2019-02-24 19:28 | Hospitalist Progress Note ---
Date of Service February 24, 2019 Assessment & Plan (1) Lower GI bleed: Lower GI bleed: possible diverticular bleed in the setting of Coumadin and Plavix use CT abdomen pelvis noncontrast : Shows no evidence of bowel thickening, chronic diverticulosis without any diverticulitis INR reversed with vitamin K GI consulted, colonoscopy not recommended No recurrence of melena hematochezia hg decreased to 10 but remained stable Discussed with GI, okay to resume Coumadin and Plavix with close monitoring continue on Augmentin x10 days for possible Bowel Ischemia Continue hydrocortisone cream for hemorrhoids, MiraLAX daily to prevent constipation Repeat CBC on follow-up with PCP this week Acute Renal Failure on Chronic CKD: CKD stage III with creatinine 1.1 Admitted with creatinine 2.2 possible secondary to dehydration GI bleed Diuretics held, given IV fluids crea 1.4 (baseline) Nephrology consulted Avoid contrast studies /NSAIDs --Resume diuretics, repeat BMP on follow-up with PCP this week Coronary artery disease: no cardiac symptoms resume Plavix and other cardiac medications CHRONIC A. FIB Coumadin held given Vit K, INR 1.1 resumed Beta alex Resume Coumadin, follow up with coumadin clinic on Tuesday ADRENAL INSUFFICIENCY On p.o. hydrocortisone chronically 30 mg daily was started on IV Hydrocortisone 100 mg TID -- usual PO Hydrocortisone resumed Severe ischemic cardiomyopathy Volume status stable Restart diuretics Type 2 diabetes pharmacy followed for glycemic management Confusion/metabolic encephalopathy per Dr. Coronado notes resolved mental status improved to baseline Presented with confusion weakness forgetfulness Metabolic encephalopathy in the setting of acute GI bleed lactic acidosis, GI bleed Mental status improved after IV hydration, awake oriented x3 conversing appropriately CT head negative for any acute change Disposition: d/c home today ff up with PCP this week (clinic to call patient on Tuesday for appointment) Subjective Follow-up for lower GI bleeding Seen resting in bed, comfortable, not in distress No recurrence of melena or hematochezia, no abdominal pain, nausea vomiting Denies chest pain, shortness of breath, palpitations, dizziness No other symptoms States he is ready and would like to be to be discharged today Review of Systems Review of Systems: All systems reviewed & are unremarkable except as noted in HPI & below Physical Exam Physical Exam: General- oriented x 3, not in distress, speaks in sentences with no effort or accessory muscle use Eyes- anicteric Neck- no JVD Lungs- clear breath sounds bilaterally Heart- normal rate, regular rhythm; no murmurs Abdomen- normal BS, nondistended, soft, nontender Extremities- no pretibial edema, no calf tenderness Neuro- alert, oriented x 3; no gross focal neurologic deficits Skin- warm & dry Results & Data Vital Signs (Past 12 Hours) Vital Signs Temp Pulse Pulse Resp BP BP Pulse Ox 02/24/19 11:19 36.6 C 62 19 134/64 156/75 H 94 02/24/19 09:21 63 02/24/19 07:55 36.6 C 62 19 156/75 H 94 Laboratory Results Laboratory Results - last 24 hr 02/20/19 02/23/19 02/24/19 20:43 20:23 04:31 Hgb Hct PT INR Sodium 139 Potassium 3.9 Chloride 109 H Carbon Dioxide 24 Anion Gap 6.0 BUN 16 Creatinine 1.27 Est Cr Clr Drug Dosing 47.9 Est GFR ( Amer) 61.4 Est GFR (Non-Af Amer) 53.0 BUN/Creatinine Ratio 12.5 Glucose 156 H POC Glucose 131 H Calcium 9.1 Crossmatch See Detail 02/24/19 02/24/19 02/24/19 04:31 04:36 07:38 Hgb 10.1 L Hct 30.8 L PT 10.8 INR 1.1 Sodium Potassium Chloride Carbon Dioxide Anion Gap BUN Creatinine Est Cr Clr Drug Dosing Est GFR ( Amer) Est GFR (Non-Af Amer) BUN/Creatinine Ratio Glucose POC Glucose 178 H Calcium Crossmatch 02/24/19 08:18 Hgb Hct PT 10.9 INR 1.1 Sodium Potassium Chloride Carbon Dioxide Anion Gap BUN Creatinine Est Cr Clr Drug Dosing Est GFR ( Amer) Est GFR (Non-Af Amer) BUN/Creatinine Ratio Glucose POC Glucose Calcium Crossmatch
--- NOTE | 2019-02-24 19:32 | Discharge Summary ---
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 fib Sick sinus syndrome status post pacemaker placement Was brought to the ER by family members, as patient was having episodes of confusion, dizzy spell and lightheadedness During my time of interview, patient appears to be appropriate, answering questions, said he has not been feeling well for the past 2 to 3 days, felt dizzy and lightheaded, appetite was very poor Denies of any chest pain, shortness of breath, no palpitation Admission lab showed patient had mild leukocytosis with white count 12.5, hemoglobin 12 / acute renal failure with creatinine elevated to 2.2, baseline hemoglobin 1.1 noted on August 2018 Normal LFTs lactic acid elevated 2.1 Patient had normal ammonia, LFTs CT head, negative for any acute change Chest x-ray shows no acute disease Patient was hypotensive systolic 96/60 Was given NSS at a rate of 125 mL-SBP improved 110 around 8 PM,Nursing reports patient had large bloody bowel movement, right red blood per rectum Patient was reevaluated room room 239 / 1 Patient reports of feeling dizzy and lightheaded after bloody bowel movement, Complaint of chest pain, or shortness of breath No nausea Abdomen soft, bowel sounds active, mild tenderness noted on right lower quadrant Patient reports he did not had any bleeding per rectum or dark tarry stool in the past Does not remember having a colonoscopy in past Admission Exam Per Admitting Provider Constitutional: WD/WN, vitals as above no acute distress Eyes: PERRL, conjunctivae normal, anicteric sclerae ENMT: external ear and nose normal, oropharynx normal Neck: trachea midline, no thyromegaly Respiratory: normal respiratory effort, lungs clear to auscultation Cardiovascular: RRR, no murmur, no edema Gastrointestinal (Abdomen): Inspection/Auscultation: normal bowel sounds; abdomen not distended Percussion/Palpation: + abdomen tender (Tenderness on right lower quadrant, no rebound no rigidity) and abdomen soft; no ascites Skin: no rashes, warm and dry Neurologic: PERRL, EOMI, accommodation nl, no face palsy, no dysarthria Psychiatric: A+Ox3, euthymic affect Principal Diagnosis LOWER GI BLEED Discharge Exam General- oriented x 3, not in distress, speaks in sentences with no effort or accessory muscle use Eyes- anicteric Neck- no JVD Lungs- clear breath sounds bilaterally Heart- normal rate, regular rhythm; no murmurs Abdomen- normal BS, nondistended, soft, nontender Extremities- no pretibial edema, no calf tenderness Neuro- alert, oriented x 3; no gross focal neurologic deficits Skin- warm & dry Discharge Data Allergies Allergy/AdvReac Type Severity Reaction Status Date / Time aspirin Allergy Unknown DOES NOT Verified 02/20/19 14:12 TAKE D/T ASTHMA citric acid AdvReac Verified 02/20/19 14:12 [From [facility]] NSAIDS (Non-Steroidal AdvReac Verified 02/20/19 14:12 Anti-Inflamma sodium bicarbonate AdvReac Verified 02/20/19 14:12 [From [facility]] Consultations 02/20/19 13:46 ED Decision to Admit Stat 02/20/19 15:06 Consult Case Management - Discharge Planning Routine 02/20/19 16:10 Consult Nephrology Routine 02/20/19 20:23 Consult Gastroenterology Routine 02/20/19 21:03 Consult Case Management - Discharge Planning Routine Consult Binder Sorter Routine Ordered Studies 02/20/19 11:47 CT head/brain wo con Stat IMPRESSION: 1. Worsening pansinus inflammatory change 2. Otherwise no acute intracranial findings 02/20/19 19:47 CT abd pelvis wo con Stat Cardiomegaly. Mural fibrofatty changes of the lateral wall left ventricle. Partially imaged pacer leads. Lipomatous hypertrophy of the interatrial septum. Coronary arterial calcifications are noted. 4 mm solid nodule of the lateral basal segment left lower lobe incidentally noted, unchanged. Mild subsegmental bibasilar atelectasis/scarring. No pneumatosis or pneumoperitoneum. Limited evaluation of the solid abdominal organs without the use of IV contrast. There are a few scattered punctate calcified granulomata noted throughout the spleen. Liver, gallbladder, pancreas and adrenal glands are unremarkable. There is mild nonspecific bilateral perinephric stranding. Mild cortical scarring and parenchymal thinning of the inferior pole left kidney. No renal or ureteral calculi identified. Partial distention of the urinary bladder with mild wall thickening. Prostamegaly. Small fat filled bilateral inguinal hernias. Extensive calcified plaque the abdominal aorta without aneurysm. No adenopathy. No bowel obstruction. Colonic diverticulosis without acute diverticulitis. No bowel wall thickening, ascites or mesenteric inflammation. Normal appendix. Soft tissues are within normal limits. Degenerative changes of the spine, pelvis and hips. Multiple remote appearing Schmorl's nodes. Convex left curvature of the lumbar spine. IMPRESSION: 1. No bowel obstruction or bowel wall thickening. 2. Colonic diverticulosis without acute diverticulitis. 3. Prostamegaly with urinary bladder wall thickening suggestive of chronic bladder outlet obstruction. Correlate with urinalysis to exclude cystitis. 4. Additional findings as above. Hospital Course (1) Lower GI bleed: Lower GI bleed: possible diverticular bleed in the setting of Coumadin and Plavix use CT abdomen pelvis noncontrast : Shows no evidence of bowel thickening, chronic diverticulosis without any diverticulitis INR reversed with vitamin K GI consulted, colonoscopy not recommended No recurrence of melena hematochezia hg decreased to 10 but remained stable Discussed with GI, okay to resume Coumadin and Plavix with close monitoring continue on Augmentin x10 days for possible Bowel Ischemia Continue hydrocortisone cream for hemorrhoids, MiraLAX daily to prevent constipation Repeat CBC on follow-up with PCP this week Acute Renal Failure on Chronic CKD: CKD stage III with creatinine 1.1 Admitted with creatinine 2.2 possible secondary to dehydration GI bleed Diuretics held, given IV fluids crea 1.4 (baseline) Nephrology consulted Avoid contrast studies /NSAIDs --Resume diuretics, repeat BMP on follow-up with PCP this week Coronary artery disease: no cardiac symptoms resume Plavix and other cardiac medications CHRONIC A. FIB Coumadin held given Vit K, INR 1.1 resumed Beta alex Resume Coumadin, follow up with coumadin clinic on Tuesday ADRENAL INSUFFICIENCY On p.o. hydrocortisone chronically 30 mg daily was started on IV Hydrocortisone 100 mg TID -- usual PO Hydrocortisone resumed Severe ischemic cardiomyopathy Volume status stable Restart diuretics Type 2 diabetes pharmacy followed for glycemic management Confusion/metabolic encephalopathy per Dr. Coronado notes resolved mental status improved to baseline Presented with confusion weakness forgetfulness Metabolic encephalopathy in the setting of acute GI bleed lactic acidosis, GI bleed Mental status improved after IV hydration, awake oriented x3 conversing appropriately CT head negative for any acute change Disposition: d/c home today ff up with PCP this week (clinic to call patient on Tuesday for appointment) Total Time Total Time Spent Total Time Spent (In Minutes): 40 MINS Discharge Plan Discharge Items Patient Disposition: Home - Self-Care Reason For Visit: CONFUSION,ACUTE RENAL FAILURE Discharge Diagnosis: POSSIBLE LOWER GASTROINTESTINAL BLEED, FROM DIVERTICULOSIS Activity: As commented below Activity Comment: RESUME ACTVITY GRADUALLY TOLERATED Lifting: Wait until after follow-up appointment Exercise/Sports: Wait until after follow-up appointment Driving/Machine Use: NO DRIVING UNTIL RE-EVALUATED BY PRIMARY CARE PHYSICIAN Non-emergency contact: Primary Care Provider Call non-emergency contact if: you have any medication questions and your symptoms worsen Follow-up/Referrals: Steve Quintero MD [Primary Care Provider] - Diet: Carb Consistent or DM2 and Heart Healthy Addtl Attending Provider Instructions: PLEASE CALL YOUR PRIMARY CARE PHYSICIAN IMMEDIATELY IF YOU HAVE BLACK OR BLOODY STOOLS. INCLUDE YOGURT AND PROBIOTIC IN YOUR DAILY DIET. TAKE A FIBER SUPPLEMENT DAILY TO PREVENT CONSTIPATION. FOLLOW UP WITH PRIMARY CARE PHYSICIAN NEXT WEEK. FOLLOW UP WITH COUMADIN CLINIC ON TUESDAY FOR BLOODWORK. THE CLINIC WILL BE CALLING YOU FOR THE APPOINTMENTS DATE AND TIME FOR ABOVE. Pending Studies at Discharge: Yes Studies:: REPEAT BLOOD WORK (COMPLETE BLOOD COUNT AND BASIC METABOLIC PROFILE) C/O PRIMARY CARE PHYSICIAN NEXT WEEK. Stand-Alone Forms: [employer], Smoking Cessation Medications and DC Order Prescriptions: New polyethylene glycol 3350 [Miralax] 17 gram Powder In Packet 17 g PO DAILY 30 Days Qty: 30 RF: 2 hydrocortisone [Proctosol HC] 2.5 % Cream With Perineal Applicator 1 applic EXT BID 14 Days Qty: 28 RF: 2 amoxicillin-pot clavulanate 875-125 mg Tablet 1 tab PO BIDM 8 Days Qty: 16 RF: 0 Continued gabapentin [Neurontin] 300 mg capsule 300 mg PO HS Qty: 90 RF: 3 finasteride 5 mg tablet 5 mg PO QAM Qty: 90 RF: 3 (DME) OneTouch Ultra Blue Test Strip strip See Dose Instructions .ROUTE .MEDSUPPLY Qty: 200 RF: 5 Lantus Solostar U-100 Insulin 100 unit/mL (3 mL) insulin pen 25 units SQ HS Qty: 15 RF: 5 hydrocortisone 10 mg tablet 10 mg PO HS Qty: 90 RF: 3 (DME) pen needle, diabetic [BD Mary 2nd Gen Pen Needle] 32 gauge x 5/32" needle See Dose Instructions .ROUTE .MEDSUPPLY Qty: 10 RF: 0 zafirlukast 20 mg tablet 20 mg PO BID RF: 0 metoprolol succinate 25 mg tablet extended release 24 hr 25 mg PO QAM RF: 0 albuterol sulfate 90 mcg/actuation HFA aerosol inhaler 2 puff Inhalation QID PRN (Reason: Shortness Of Breath Or Wheezing) RF: 0 budesonide-formoterol 160-4.5 mcg/actuation HFA aerosol inhaler 2 puff Inhalation BID RF: 0 acetaminophen [Tylenol] 325 mg Tablet 325 mg PO Q6H PRN (Reason: Pain) RF: 0 hydrocortisone 20 mg tablet 20 mg PO QAM RF: 0 torsemide 20 mg tablet 20 mg PO QAM RF: 0 amiodarone 200 mg tablet 200 mg PO QAM RF: 0 spironolactone 25 mg tablet 12.5 mg PO QAM RF: 0 warfarin 2.5 mg tablet 2.5 mg PO QDD RF: 0 clopidogrel 75 mg tablet 75 mg PO QAM RF: 0 potassium chloride 20 mEq/15 mL liquid 20 meq PO QAM RF: 0 levothyroxine 75 mcg tablet 75 mcg PO QAM RF: 0 lisinopril 5 mg tablet 5 mg PO QAM RF: 0 escitalopram oxalate 20 mg tablet 20 mg PO QAM RF: 0 pravastatin 40 mg Tablet 40 mg PO HS RF: 0 omeprazole 20 mg Capsule,Delayed Release(Dr/Ec) 20 mg PO QAM RF: 0 Discharge Orders: Discharge Order (Routine); Ordered 02/24/19 Ordered By: Ho Garcia/Other Patient Handouts: Diabetes Alf Complications, Hyperglycemia, Diabetes Healthy Meals, Diabetes Carbs, Diabetes Exercise Benefits, Diabetes Activity Tips, Diabetes Living Life Admission Data Admit Date/Time: 02/20/19 21:03 Attending Provider: Ho Ordoñez Admit Provider: Roxana Coronado Primary Care Provider: Steve Quintero Other Providers: Jack Chappell ; Kitty Cervantes ; Rudy Fernando ; Snoya Nick ; Azra Howard ; Paradise Reynolds ; Leti Lemon ; Faye Rea ; Consuelo Palacios ; Kamila Messina ; Deshawn Lopez ; Sushma Ferrell ; Aruna Rolon ; Jessica Martinez ; Perico Manjarrez ; Jayy Lindsay ; Tanya Garrido ; Annmarie Hung ; Shae Tobar ; Tamiko Núñez ; Sharron Araya ; Louis Arenas ; Roxana Coronado. Other Interventions: Discharge Summary Assessment (RN) Last Done: 02/24/19 11:19 DC Date/Time DO NOT enter until pt leaves facility: 02/24/19 11:54
--- NOTE | 2019-03-05 11:49 | Coding Query ---
CODING QUERY To promote full compliance with coding requirements relating to patient care, provider participation is requested in all cases of air sampler uncertainty. Please assist us with the question(s) below: Coding Question(s): Patient admitted with rectal bleeding. Discharge Summary states " Lower GI bleed in the setting of Coumadin and Plavix use". Please document, if known or suspected the etiology of the bleed. Thank you . Domingo Garcia [facility] Physician's Response(s): possible DIVERTICULAR BLEED Principal Diagnosis: "that condition established after study, to be chiefly responsible for occasioning the admission of the patient to the hospital for care." Co-Existing Principal Diagnosis: "when two or more diagnoses equally meet the criteria for principal diagnosis as determined by the circumstances of admission, diagnostic work up, and/or therapy provided, and the Alphabetic Index, Tabular List, or another coding guideline does not provide sequencing direction, any one of the diagnoses may be sequenced first." "When the physician has documented what appears to be a current diagnosis in the body of the record, but has not included the diagnosis in the final diagnostic statement, the physician should be asked whether the diagnosis should be added." (Source Coding Clinic 2 QTR90. p3-4) [employer]
== END 2019-02-24 11:54 | disposition home or self-care (01) | DRG 377 ==
LOC: 2S 11:10 → ED 11:10 → 2S 14:59 → SUATTDRO 21:03 → 1E 21:04 → 2S 02-21 18:01

== ENCOUNTER 2019-09-09 10:35 | Observation (INO) ==
--- NOTE | 2019-09-09 10:38 | Emergency Department Note ---
Impression & Plan Syncope, CKD (chronic kidney disease) ED Provider Note NAME: BARBARA NAVARRO AGE: 79 SEX: M : 1940 ARRIVES VIA: Ambulance INFORMANT: Patient, ED PROVIDER(S): Danny Austin MD Chief Complaint: Syncope, weakness HPI: Patient does present with concern for syncope and weakness. The patient reportedly had had a syncopal episode while trying to get up earlier today. The patient has felt weak and lethargic. The patient does state that he believes he took his home medications but maybe did not take his amiodarone. He states that he believes his diet is been appropriate. The patient denies any chest pain or shortness of breath. The patient currently denies any nausea vomiting. The patient denies any fevers or chills. BSG prior to arrival was 150s. Did receive a 250 cc bolus with EMS. ROS: See HPI for pertinent positives and negatives. A total of 10 systems were reviewed and otherwise negative. Past medical history: See below Surgical history: See below Social history: See below Physical Exam: GENERAL: Nontoxic in appearance. EYE EXAM: Normal conjunctiva. PERRL, no anisocoria and EOM's grossly intact w/o pain. NECK: Supple, no nuchal rigidity, no adenopathy, non-tender. No signs of meningismus. LUNGS: Clear to auscultation. Normal chest wall mechanics. HEART: NSR, no MRG. ABDOMEN: Abdomen soft, non-tender, normo-active bowel sounds, no masses, no rebound or guarding. BACK: No CVA TTP. SKIN: No rashes and no bruising. UPPER EXTREMITIES: Upper extremities are grossly normal. LOWER EXTREMITIES: Grossly normal, no edema. NEURO EXAM: A&O x3, cranial nerves II-XII grossly intact, normal speech, moves all 4 extremities on command w/o issue. Differential diagnoses: Vasovagal event, dehydration, infection, hypoglycemia, electrolyte abnormalities, cardiac sources, intracerebral event, pulmonary embolism, seizure, toxicologic, neurologic, as well as other pathologies. Course: Patient was seen and evaluated the bedside. Full history physical exam was performed. EKG: Indication: Syncope A paced rhythm rate of 72, prolonged DE wide QRS, left axis deviation, Q waves inferiorly, this does appear to be an improvement compared to the patient's prehospital EKG is the rate is much improved from the 120s down to the 70s. Imaging Studies: Radiology results as stated below per my review in the radiologist's interpretation: SINGLE VIEW CHEST CLINICAL HISTORY: Generalized weakness. FINDINGS: 2 AP, portable, upright chest radiographs are compared to study dated 02/20/2019. The examination is degraded by portable technique and patient rotation. A 2-lead cardiac pacemaker is unchanged in position and partially obscures the left mid chest. The heart is enlarged noting atherosclerotic calcification of the thoracic aorta. The pulmonary vasculature is noncongested. No airspace consolidation or large pleural effusion is identified. There is bibasilar scarring/atelectasis. No pneumothorax is seen. The skeletal structures are osteopenic. The bony thorax is grossly intact. IMPRESSION: 1. Cardiomegaly and cardiac pacemaker. There is no radiographic evidence of congestive failure. 2. No airspace consolidation or large pleural effusion is identified. ACT 112: Negative or not required by law. Electronically signed by: Osei Pyel M.D. 09/09/2019 11:14 AM Dictated: 09/09/19 1112 Transcribed: 09/09/19 1112 Cardiac monitoring: An order was placed for continuous cardiac monitoring. The monitor shows a rate of 72 with paced rhythm. MDM: Patient does present with concern for syncope. Patient has a normal white count. Trace anemia. Patient's kidney function is unremarkable and unchanged from prior. The patient's troponin is undetectable and the patient's electrolytes are unchanged. I did have the patient's pacemaker interrogated I did receive a call from [facility] and the patient did not have any recent abnormalities or arrhythmias. Given the patient's recent syncope and high risk nature it is through the on-call hospitalist. Patient was to be admitted to [facility] service. The patient was admitted. INR is therapeutic. 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) Coronary artery disease (Chronic) multi-vessel disease - medical management Depression (Chronic) Diabetic neuropathy (Chronic) GERD (gastroesophageal reflux disease) (Chronic) Tena's thyroiditis (Chronic) History of non-ST elevation myocardial infarction (NSTEMI) (Resolved) Hyperlipidemia (Chronic) Hypertension (Chronic) Mural thrombus of heart (Acute) Noted on echo November 2018 Pacemaker (Chronic) dual chamber Paroxysmal atrial tachycardia (Chronic) Polymyalgia rheumatica (Chronic) Sick sinus syndrome (Chronic) Type 2 diabetes mellitus (Chronic) Vitamin D deficiency (Chronic) Surgical History History of temporal artery biopsy Family History Father Stroke Other Family history non-contributory Social History Preferred Language: Iranian Communication Ability: Effective Skip Hoist Engineer Required: No Beliefs That Will Affect Care: None marital status: Current Living Situation: Family Feels Safe at Home: Yes Safety Concerns: Feels Safe At This Time Smoking Status: Never smoker Hx Alcohol Use: No Hx Substance Use: No caffeine: Yes Seatbelt Use: always Allergies Allergies Allergy/AdvReac Type Severity Reaction Status Date / Time aspirin Allergy Unknown DOES NOT Verified 09/09/19 11:41 TAKE D/T ASTHMA citric acid AdvReac Verified 09/09/19 11:41 [From Robina] NSAIDS (Non-Steroidal AdvReac Verified 09/09/19 11:41 Anti-Inflamma sodium bicarbonate AdvReac Verified 09/09/19 11:41 [From Robina] Home Meds Home Medications Medication Instructions Recorded Confirmed albuterol sulfate 2 puff INHALATION QID PRN 01/30/18 09/09/19 metoprolol succinate 25 mg PO QAM 01/30/18 09/09/19 omeprazole 20 mg PO QAM 07/25/18 09/09/19 acetaminophen [Tylenol] 325 mg PO Q6H PRN 11/23/18 09/09/19 amiodarone 200 mg PO QAM 02/20/19 09/09/19 levothyroxine 75 mcg PO QAM 02/20/19 09/09/19 spironolactone 12.5 mg PO MOWEFR 02/20/19 09/09/19 torsemide 10 mg PO QAM 02/20/19 09/09/19 escitalopram oxalate 10 mg PO DAILY 09/09/19 09/09/19 warfarin 1.25 mg PO SUTUTH 09/09/19 09/09/19 warfarin 2.5 mg PO MOWEFRSA 09/09/19 09/09/19 zafirlukast 20 mg PO BID 09/09/19 09/09/19 Previous Rx's Medication Instructions Recorded gabapentin 300 mg capsule 300 mg PO HS #90 cap 11/10/18 blood sugar diagnostic #200 ea 12/04/18 hydrocortisone 10 mg tablet 10 mg PO HS #90 tab 01/17/19 insulin glargine 100 unit/mL (3 25 units SQ HS #15 ml 01/17/19 mL) subcutaneous pen polyethylene glycol 3350 [Miralax] 17 g PO DAILY 30 Days #30 ea 02/24/19 pravastatin 40 mg tablet 40 mg PO HS #90 tab 05/07/19 hydrocortisone 20 mg tablet 20 mg PO QAM #90 tab 05/22/19 pen needle, diabetic 32 gauge x #200 ea 05/28/1932" budesonide-formoterol HFA 160 2 puff INHALATION BID #10.2 gm 05/31/19 mcg-4.5 mcg/actuation aerosol inhaler clopidogrel 75 mg tablet 75 mg PO QAM #30 tab 08/01/19 Results & Data (ED) Vital Signs Vital Signs - 24 hr 09/09/19 10:44 09/09/19 10:45 09/09/19 10:46 Temperature Temperature Source Pulse Rate 72 72 Pulse Rate from SpO2 Sensor 72 Respiratory Rate 16 14 Blood Pressure 126/67 127/83 Blood Pressure Mean 83 103 Pulse Oximetry 99 Oxygen Delivery Method Room Air Room Air Room Air Sepsis Recent Fever Within 48 Hours Sepsis Action Taken by Nursing 09/09/19 10:49 09/09/19 10:50 09/09/19 10:53 Temperature 37.4 C Temperature Source Oral Pulse Rate 7 L 71 Pulse Rate from SpO2 Sensor 71 Respiratory Rate 17 13 Blood Pressure 127/83 Blood Pressure Mean 97 Pulse Oximetry 99 100 99 Oxygen Delivery Method Room Air Room Air Room Air Sepsis Recent Fever Within 48 Hours No Sepsis Action Taken by Nursing No Action Required 09/09/19 11:00 09/09/19 11:01 09/09/19 11:10 Temperature Temperature Source Pulse Rate 70 71 76 Pulse Rate from SpO2 Sensor 71 71 75 Respiratory Rate 16 17 28 H Blood Pressure 144/68 H Blood Pressure Mean 111 Pulse Oximetry 100 98 97 Oxygen Delivery Method Room Air Room Air Room Air Sepsis Recent Fever Within 48 Hours Sepsis Action Taken by Nursing 09/09/19 11:20 09/09/19 11:30 09/09/19 11:40 Temperature Temperature Source Pulse Rate 70 70 73 Pulse Rate from SpO2 Sensor 70 70 73 Respiratory Rate 16 18 20 Blood Pressure 138/84 Blood Pressure Mean 101 Pulse Oximetry 98 97 99 Oxygen Delivery Method Room Air Room Air Room Air Sepsis Recent Fever Within 48 Hours Sepsis Action Taken by Nursing 09/09/19 11:50 09/09/19 12:00 09/09/19 12:01 Temperature Temperature Source Pulse Rate 70 70 70 Pulse Rate from SpO2 Sensor 70 70 67 Respiratory Rate 16 16 21 Blood Pressure 156/102 H Blood Pressure Mean 112 Pulse Oximetry 91 98 Oxygen Delivery Method Room Air Room Air Room Air Sepsis Recent Fever Within 48 Hours Sepsis Action Taken by Nursing 09/09/19 12:10 09/09/19 12:20 Temperature Temperature Source Pulse Rate 71 73 Pulse Rate from SpO2 Sensor 70 Respiratory Rate 12 15 Blood Pressure Blood Pressure Mean Pulse Oximetry 98 Oxygen Delivery Method Room Air Room Air Sepsis Recent Fever Within 48 Hours Sepsis Action Taken by [facility] Medications Current Medication List: was personally reviewed by me Laboratory Data Attestation: I reviewed the patient's lab results. Result diagrams: 09/09/19 09:43 09/09/19 09:43 Lab Results 09/09/19 09/09/19 09/09/19 Range/Units 09:43 09:43 09:43 WBC 10.39 (4.8-10.8) K/uL RBC 4.92 (4.7-6.1) M/uL Hgb 12.8 L (14.0-18.0) g/dL POC Hgb (14.0-18.0) g/dl Hct 40.7 L (42-52) % POC Hct (42-52) % MCV 82.7 (80-100) fL MCH 26.0 (25-34) pg MCHC 31.4 L (32-36) g/dL RDW Std Deviation 52.7 H (36.4-46.3) fL RDW Coeff of Andrew 17.4 H (11.5-14.5) % Plt Count 370 (130-400) K/uL MPV 10.7 H (7.4-10.4) fL Immature Gran % (Auto) 0.5 % Neut % (Auto) 62.4 % Lymph % (Auto) 17.5 % [place] % (Auto) 7.6 % Eos % (Auto) 11.6 % Baso % (Auto) 0.4 % Immature Gran # (Auto) 0.05 H (0.00-0.02) K/uL Neut # (Auto) 6.48 (1.4-6.5) K/uL Lymph # (Auto) 1.82 (1.2-3.4) K/uL [place] # (Auto) 0.79 H (0.11-0.59) K/uL Eos # (Auto) 1.21 H (0-0.5) K/uL Baso # (Auto) 0.04 (0-0.2) K/uL PT 26.5 H (9.0-12.0) Seconds INR 2.6 H (0.9-1.1) POC Sodium (135-144) mmol/L Sodium 139 (136-145) mmol/L POC Potassium (3.3-5.0) mmol/L Potassium 4.0 (3.5-5.1) mmol/L POC Chloride (101-112) mmol/L Chloride 107 (98-107) mmol/L Carbon Dioxide 27 (21-32) mmol/L POC Total CO2 (24-31) mmol/L Anion Gap 5.0 (3-11) POC Anion Gap (16-25) mmol/L POC BUN (7-18) mg/dl BUN 24 H (7-18) mg/dl Creatinine 1.46 H (0.6-1.4) mg/dl POC Creatinine (0.6-1.3) mg/dl Est Cr Clr Drug Dosing 45.1 ml/min Est GFR ( Amer) 51.5 Est GFR (Non-Af Amer) 44.5 BUN/Creatinine Ratio 16.2 (10-20) Glucose 145 H (70-99) mg/dl POC Glucose (other) (70-99) mg/dl Calcium 8.9 (8.5-10.1) mg/dl POC Ioniz Calcium Carm[place] (1.12-1.32) mmol/l Phosphorus 2.8 (2.5-4.9) mg/dl Magnesium 2.2 (1.8-2.4) mg/dl Total Bilirubin 0.4 (0.2-1) mg/dl AST 14 L (15-37) U/L ALT 30 (12-78) U/L Alkaline Phosphatase 107 (45-117) U/L Troponin I < 0.015 (0-0.045) ng/ml Total Protein 8.1 (6.4-8.2) gm/dl Albumin 3.4 (3.4-5.0) gm/dl Globulin 4.7 H (2.5-4.0) gm/dl Albumin/Globulin Ratio 0.7 L (0.9-2) TSH 5.590 H (0.300-4.500) uIu/ml Free T4 1.16 (0.8-1.6) ng/dl 09/09/19 Range/Units 11:03 WBC (4.8-10.8) K/uL RBC (4.7-6.1) M/uL Hgb (14.0-18.0) g/dL POC Hgb 11.9 L (14.0-18.0) g/dl Hct (42-52) % POC Hct 35 L (42-52) % MCV (80-100) fL MCH (25-34) pg MCHC (32-36) g/dL RDW Std Deviation (36.4-46.3) fL RDW Coeff of Andrew (11.5-14.5) % Plt Count (130-400) K/uL MPV (7.4-10.4) fL Immature Gran % (Auto) % Neut % (Auto) % Lymph % (Auto) % [place] % (Auto) % Eos % (Auto) % Baso % (Auto) % Immature Gran # (Auto) (0.00-0.02) K/uL Neut # (Auto) (1.4-6.5) K/uL Lymph # (Auto) (1.2-3.4) K/uL [place] # (Auto) (0.11-0.59) K/uL Eos # (Auto) (0-0.5) K/uL Baso # (Auto) (0-0.2) K/uL PT (9.0-12.0) Seconds INR (0.9-1.1) POC Sodium 141 (135-144) mmol/L Sodium (136-145) mmol/L POC Potassium 4.1 (3.3-5.0) mmol/L Potassium (3.5-5.1) mmol/L POC Chloride 104 (101-112) mmol/L Chloride (98-107) mmol/L Carbon Dioxide (21-32) mmol/L POC Total CO2 25 (24-31) mmol/L Anion Gap (3-11) POC Anion Gap 17.0 (16-25) mmol/L POC BUN 23 H (7-18) mg/dl BUN (7-18) mg/dl Creatinine (0.6-1.4) mg/dl POC Creatinine 1.3 (0.6-1.3) mg/dl Est Cr Clr Drug Dosing ml/min Est GFR ( Amer) Est GFR (Non-Af Amer) BUN/Creatinine Ratio (10-20) Glucose (70-99) mg/dl POC Glucose (other) 148 H (70-99) mg/dl Calcium (8.5-10.1) mg/dl POC Ioniz Calcium [place] 1.16 (1.12-1.32) mmol/l Phosphorus (2.5-4.9) mg/dl Magnesium (1.8-2.4) mg/dl Total Bilirubin (0.2-1) mg/dl AST (15-37) U/L ALT (12-78) U/L Alkaline Phosphatase (45-117) U/L Troponin I (0-0.045) ng/ml Total Protein (6.4-8.2) gm/dl Albumin (3.4-5.0) gm/dl Globulin (2.5-4.0) gm/dl Albumin/Globulin Ratio (0.9-2) TSH (0.300-4.500) uIu/ml Free T4 (0.8-1.6) ng/dl Administered Medications Insulin Aspart (Novolog Flexpen) 0 units SC ACHS KATHLEEN Stop: 10/09/19 16:29 Last Admin: 09/09/19 17:01 Dose: 3 units Documented by: [id number] Cosigned by: [id number] Miscellaneous (Order Awaiting Action) 1 ea N/A QS KATHLEEN Stop: 10/09/19 15:59 Last Admin: 09/09/19 16:11 Dose: Not Given Documented by: [id number] Warfarin Sodium (Coumadin) 1.25 mg PO SuTuTh@1600 [facility] Stop: 10/09/19 15:59 Last Admin: 09/09/19 17:15 Dose: 1.25 mg Documented by: [id number] Discontinued Medications Amiodarone HCl (Cordarone) 200 mg PO NOW STA Stop: 09/09/19 13:02 Last Admin: 09/09/19 13:58 Dose: 200 mg Documented by: [id number] Hydrocortisone (Cortef) 20 mg PO NOW STA Stop: 09/09/19 13:02 Last Admin: 09/09/19 14:08 Dose: 20 mg Documented by: [id number] Discharge Plan Visit Data *Final* Discharge Date/Time: 09/09/19 14:15 Chief Complaint: Syncope Stated Complaint: syncope ED Provider: Danny Austin Discharge Problem: Syncope, CKD (chronic kidney disease) Patient Disposition: Admitted As Inpatient Discharge Instructions Interventions: ED Discharge Assessment Last Done: 09/09/19 14:15 Discharge Problem: Syncope Qualifiers: Syncope type: unspecified Qualified Code(s): R55 - Syncope and collapse CKD (chronic kidney disease) Qualifiers: Chronic kidney disease stage: stage 3 (moderate) Qualified Code(s): N18.3 - Chronic kidney disease, stage 3 (moderate)
[2019-09-09 10:56] LABS: Basophils # (auto) 0.04 K/uL (0-0.2); Basophils % (auto) 0.4 %; Eosinophils # (auto) 1.21 K/uL (0-0.5); Eosinophils % (auto) 11.6 %; Hematocrit (blood only) 40.7 % (42-52); Hemoglobin 12.8 g/dL (14.0-18.0); Immature Granulocytes # (auto) 0.05 K/uL (0.00-0.02); Immature Granulocytes % (auto) 0.5 %; Lymphocytes # (auto) 1.82 K/uL (1.2-3.4); Lymphocytes % (auto) 17.5 %; Mean Corpuscular Hgb Conc 31.4 g/dL (32-36); Mean Corpuscular Volume 82.7 fL (80-100); Mean Platelet Volume 10.7 fL (7.4-10.4); Monocytes # (auto) 0.79 K/uL (0.11-0.59); Monocytes % (auto) 7.6 %; Neutrophils # (auto) 6.48 K/uL (1.4-6.5); Neutrophils % (auto) 62.4 %; Platelet Count 370 K/uL (130-400); RDW Coefficient of Variation 17.4 % (11.5-14.5); RDW Standard Deviation 52.7 fL (36.4-46.3); Red Blood Count 4.92 M/uL (4.7-6.1); White Blood Count 10.39 K/uL (4.8-10.8)
[2019-09-09 11:13] LABS: INR 2.6 (0.9-1.1); Prothrombin Time 26.5 Seconds (9.0-12.0)
--- NOTE | 2019-09-09 11:15 | XRay Report ---
SINGLE VIEW CHEST CLINICAL HISTORY: Generalized weakness. FINDINGS: 2 AP, portable, upright chest radiographs are compared to study dated 02/20/2019. The examin ation is degraded by portable technique and patient rotation. A 2-lead cardiac pacemaker is unchanged in position and partially obscures the left mid chest. The heart is enlarged noting atherosclerotic calcification of the thoracic aorta. The pulmonary vasculature is noncongested. No airspace consolida tion or large pleural effusion is identified. There is bibasilar scarring/atelectasis. No pneumothora x is seen. The skeletal structures are osteopenic. The bony thorax is grossly intact. IMPRESSION: 1. Cardiomegaly and cardiac pacemaker. There is no radiographic evidence of congestive failure. 2. No airspace consolidation or large pleural effusion is identified. ACT 112: Negative or not required by law. Electronically signed by: Osei Pyle M.D. 09/09/2019 11:14 AM
[2019-09-09 11:16] LABS: Alanine Aminotransferase 30 U/L (12-78); Albumin Level 3.4 gm/dl (3.4-5.0); Aspartate Aminotransferase 14 U/L (15-37); BUN Creatinine Ratio 16.2 (10-20); Blood Urea Nitrogen 24 mg/dl (7-18); Calcium 8.9 mg/dl (8.5-10.1); Carbon Dioxide 27 mmol/L (21-32); Chloride 107 mmol/L (98-107); Creatinine Clr Calc Pharmacy 45.1 ml/min; Est GFR (African American) 51.5; Est GFR (Non-African American) 44.5; Glucose 145 mg/dl (70-99); Magnesium 2.2 mg/dl (1.8-2.4); Sodium 139 mmol/L (136-145)
[2019-09-09 11:16] LABS: iSTAT Creatinine 1.3 mg/dl (0.6-1.3); iSTAT Hemoglobin 11.9 g/dl (14.0-18.0); iSTAT Ionized Calcium 1.16 mmol/l (1.12-1.32); iSTAT Potassium 4.1 mmol/L (3.3-5.0)
[2019-09-09 11:27] LABS: Albumin Globulin Ratio 0.7 (0.9-2); Alkaline Phosphatase 107 U/L (45-117); Bilirubin,Total 0.4 mg/dl (0.2-1); Globulin 4.7 gm/dl (2.5-4.0); Phosphorus 2.8 mg/dl (2.5-4.9); Total Protein 8.1 gm/dl (6.4-8.2); Troponin I < 0.015 ng/ml (0-0.045)
[2019-09-09 11:41] LABS: T4 Free Thyroxine 1.16 ng/dl (0.8-1.6)
[2019-09-09] MEDS ORDERED: HYDROCORTISONE 10 MG TAB PO STA (13:01)
[2019-09-09] MEDS ORDERED: AMIODARONE 200 MG TAB PO STA (13:01)
--- NOTE | 2019-09-09 13:39 | CT Scan Report ---
CT SCAN OF THE BRAIN WITHOUT IV CONTRAST CLINICAL HISTORY: Syncope. COMPARISON STUDY: CT of the brain dated 02/20/2019. TECHNIQUE: Unenhanced axial CT scan of the brain is performed from the vertex to the skull base. A do se lowering technique was utilized adhering to the principles of ALARA. CT DOSE: 537.48 mGy.cm FINDINGS: Brain parenchyma: There are age-related involutional changes noting mild subcortical and periventric ular microangiopathic change. There is no hemorrhage, mass effect, or evidence of acute territorial i schemia by CT criteria. Pimentel-white matter differentiation is preserved. No extra-axial fluid collecti on is seen. Mineralization is noted in the basal ganglia. Ventricles, sulci, cisterns: Prominent secondary to involutional change. Intracranial vasculature: There is atherosclerotic calcification of the cavernous carotid and vertebr al arteries. Calvarium: The skeletal structures are osteopenic. No depressed calvarial fracture is identified. Sinuses and mastoids: There is near complete opacification of the frontal, ethmoid, and left sphenoid sinuses. Moderate mucosal thickening is seen within the right sphenoid sinus and the maxillary antra . There is evidence of previous paranasal sinus surgery. Thickening and sclerosis of the sinus rosa indicates chronicity. The mastoid air cells are well pneumatized. Orbits: The bony orbits are grossly intact. There is evidence of previous right ocular lens surgery. IMPRESSION: 1. There is no hemorrhage, mass effect, or evidence of acute territorial ischemia by CT criteria. 2. Findings of pansinusitis as above. ACT 112: Negative or not required by law. Electronically signed by: Osei Pyle M.D. 09/09/2019 1:38 PM
--- NOTE | 2019-09-09 14:07 | History & Physical Report ---
Date of Service September 09, 2019 Assessment & Plan (1) Syncope: This is an 79-year-old male who has significant past medical history of CAD with ischemic cardiomyopathy, heart failure with reduced ejection fraction, SSS status post pacemaker, HTN, HLD, paroxysmal atrial fibrillation anticoagulated on warfarin, insulin-dependent T2DM, adrenal insufficiency, CKD stage III, PMR, hypothyroidism, diabetic neuropathy and nephropathy, depression with anxiety, BPH, vitamin D deficiency and GERD who presents to ED after sustaining a syncopal episode prior to arrival. According to ED provider after syncopal episode EMS was called. Patient's blood glucose was within normal limits. He was not hypoglycemic. He was found to be tachycardic upon arrival and was given a 250 mL bolus of IVF with improvement of his heart rate. In ED he has remained hemodynamically stable and is otherwise felt well and much improved. Lab work notable for WBC 10.39, H&H 12.8 and 40.7, platelet 370, INR 2.6, BUN 24, creatinine 1.46, phos 2.8, mag 2.2, troponin WNL, TSH 5.59, free T4 1.16. He elicits he took his morning levothyroxine, but otherwise not take his a.m. meds including amiodarone or hydrocortisone. admit to telemetry -monitor for arrhythmia CT head ordered -revealed no acute intracranial abnormality, chronic pansinusitis noted -patient is without URI symptoms Obtain echocardiogram Cycle troponins Pacemaker interrogated in ED Consult cardiology EEG ordered -due to patient reporting confusion post syncopal episode rule out seizure Orthostatic blood pressures Hold torsemide today Neurochecks (2) Acute worsening of stage 3 chronic kidney disease: Baseline creatinine 1.1 BUN/creatinine 44 and 1.46 He did receive 250 IVF in route Hold torsemide today Repeat renal function in a.m. (3) Heart failure with reduced ejection fraction due to cardiomyopathy: Patient with ischemic cardiomyopathy last echocardiogram 01/2019 revealed EF 40 to 45% Continue metoprolol and resume torsemide and Aldactone in a.m. Previously had been on lisinopril, but discontinued secondary to symptomatic hypotension Monitor daily weights, strict I's and O's baseline weight 189-193 Heart healthy, low-sodium diet pt appears euvolemic and renal fxn mildly elevated hold torsemide today, resume in a.m. cardiology consulted (4) Type 2 diabetes mellitus: Last A1c 7.8 11/2018 Obtain A1c in a.m. Lantus/NovoLog per protocol (5) Coronary artery disease: History of multivessel coronary artery disease discovered via cardiac cath 11/2018, not amenable to PCI and patient not a candidate for CABG Continue medical management Cycle troponins in setting of syncope Cardiology consulted Continue metoprolol, Plavix, warfarin (6) Paroxysmal A-fib: Continue amiodarone, metoprolol and warfarin for stroke prophylaxis INR is therapeutic He missed a.m. dose of amiodarone, give 20 mg x 1 now Monitor QTC (7) Mural thrombus of heart: Discovered via echocardiogram 11/2018 Patient anticoagulated on warfarin (8) Hypertension: Blood pressure stable in ED Obtain orthostatic blood pressures Continue metoprolol, Aldactone and torsemide in a.m. (9) Adrenal insufficiency: Continue hydrocortisone Missed a.m. dose, give Cortef 20 mg x 1 now (10) Sick sinus syndrome: s/p PPM ekg reviewed pacer interrogated in ED per provider by [employer], no significant abnormalities awaiting report (11) Tena's thyroiditis: Continue levothyroxine TSH 5.59, free T4 1.16 (12) Hyperlipidemia: Continue statin (13) Asthma: No acute exacerbation No current use of oxygen at bedtime Continue Symbicort, as needed albuterol, zafirlukast (14) Diabetic neuropathy: Continue gabapentin (15) Depression: Mood stable Continue citalopram, QTC 486 MS (16) GERD (gastroesophageal reflux disease): Continue omeprazole (17) DVT prophylaxis: Continue warfarin, INR 2.6 Home regimen of 1.25 mg Tuesday, 2.5 mg all other days Disposition: Admit to telemetry Follow-up: PCP Dr. Quintero upon discharge Patient was seen and examined in collaboration with Dr. Zuniga, please see addendum History of Present Illness Chief Complaint: Syncopal episode prior to arrival. Primary Care Provider: Steve Quintero MD This is an 79-year-old male who has significant past medical history of CAD with ischemic cardiomyopathy, heart failure with reduced ejection fraction, SSS status post pacemaker, HTN, HLD, paroxysmal atrial fibrillation anticoagulated on warfarin, insulin-dependent T2DM, adrenal insufficiency, CKD stage III, PMR, hypothyroidism, diabetic neuropathy and nephropathy, depression with anxiety, BPH, vitamin D deficiency and GERD who presents to ED after sustaining a syncopal episode prior to arrival. He states he was standing up fixing his breakfast cereal when he had a syncopal episode. This was witnessed by his daughter. There was no loss of bowel or bladder habits, no apparent shaking of extremities or tremors, no presyncope symptoms associated including nausea diaphoresis lightheadedness or dizziness. He did have episode of confusion after syncope and still feels slightly confused. He denies any recent illness, fever, chest pain, shortness of breath at rest, palpitations, cough, nausea, vomiting, diarrhea, abdominal pain, dysuria, increased urgency or frequency with urination, hematuria, melena, hematochezia. He states over the past few days he has felt, "not right." He is unable to pinpoint how he was feeling. His appeti te has been normal. He feels he has been drinking adequate fluids. He denies any lower extremity swelling, orthopnea or PND. He does follow with [facility] cardiology. [facility] and underwent Reds vest evaluation on 09/04 which was within limits. He had mild weight gain 295 pounds. He currently lives with his daughter and son-in-law. He ambulates with a cane at baseline. Of significance he was hospitalized at [facility] 11/2018 secondary to acute respiratory failure with congestive heart failure and congestive hepatopathy. Echo at that time revealed severe left ventricular systolic dysfunction with an EF of 20 to 24% and apical left ventricular thrombus. He underwent cardiac catheterization and was found to have multivessel coronary artery disease. He was not a candidate for PCI due to coronary anatomy or CABG secondary to comorbidities. He has since been treated medically and repeat echocardiogram on 01/2019 revealed mild improvement in EF to 39%. He does follow closely with [facility] cardiology. In March 2019 his lisinopril was held and his torsemide was decreased from 20 mg to 10 mg secondary to symptomatic hypotension. He does elicit that he has had episodes of syncope in the past 1 approximately 2 weeks ago and the other this past fall. He does have a dual-chamber pacemaker in place and is undergone proper interrogations. Patient was interrogated in ED per ED provider which was generally unremarkable. According to ED provider after syncopal episode EMS was called. Patient's blood glucose was within normal limits. He was not hypoglycemic. He was found to be tachycardic upon arrival and was given a 250 mL bolus of IVF with improvement of his heart rate. In ED he has remained hemodynamically stable and is otherwise felt well and much improved. Lab work notable for WBC 10.39, H&H 12.8 and 40.7, platelet 370, INR 2.6, BUN 24, creatinine 1.46, phos 2.8, mag 2.2, troponin WNL, TSH 5.59, free T4 1.16. He elicits he took his morning levothyroxine, but otherwise not take his a.m. meds including amiodarone or hydrocortisone. Allergies Allergy/AdvReac Type Severity Reaction Status Date / Time aspirin Allergy Unknown DOES NOT Verified 09/09/19 11:41 TAKE D/T ASTHMA citric acid AdvReac Verified 09/09/19 11:41 [From [employer]] NSAIDS (Non-Steroidal AdvReac Verified 09/09/19 11:41 Anti-Inflamma sodium bicarbonate AdvReac Verified 09/09/19 11:41 [From [employer]] Home Medications Home Medications Medication Instructions Recorded Confirmed Type albuterol sulfate 2 puff INHALATION QID PRN 01/30/18 09/09/19 History metoprolol succinate 25 mg PO QAM 01/30/18 09/09/19 History omeprazole 20 mg PO QAM 07/25/18 09/09/19 History gabapentin 300 mg capsule 300 mg PO HS #90 cap 11/10/18 09/09/19 Rx acetaminophen [Tylenol] 325 mg PO Q6H PRN 11/23/18 09/09/19 History blood sugar diagnostic #200 ea 12/04/18 12/25/18 Rx hydrocortisone 10 mg tablet 10 mg PO HS #90 tab 01/17/19 09/09/19 Rx insulin glargine 100 unit/mL (3 25 units SQ HS #15 ml 01/17/19 09/09/19 Rx mL) subcutaneous pen amiodarone 200 mg PO QAM 02/20/19 09/09/19 History levothyroxine 75 mcg PO QAM 02/20/19 09/09/19 History spironolactone 12.5 mg PO MOWEFR 02/20/19 09/09/19 History torsemide 10 mg PO QAM 02/20/19 09/09/19 History polyethylene glycol 3350 [Miralax] 17 g PO DAILY 30 Days #30 ea 02/24/19 09/09/19 Rx pravastatin 40 mg tablet 40 mg PO HS #90 tab 05/07/19 09/09/19 Rx hydrocortisone 20 mg tablet 20 mg PO QAM #90 tab 05/22/19 09/09/19 Rx pen needle, diabetic 32 gauge x #200 ea 05/28/19 Rx 5/32" budesonide-formoterol HFA 160 2 puff INHALATION BID #10.2 gm 05/31/19 09/09/19 Rx mcg-4.5 mcg/actuation aerosol inhaler clopidogrel 75 mg tablet 75 mg PO QAM #30 tab 08/01/19 09/09/19 Rx escitalopram oxalate 10 mg PO DAILY 09/09/19 09/09/19 History warfarin 1.25 mg PO SUTUTH 09/09/19 09/09/19 History warfarin 2.5 mg PO MOWEFRSA 09/09/19 09/09/19 History zafirlukast 20 mg PO BID 09/09/19 09/09/19 History 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) Coronary artery disease (Chronic) multi-vessel disease - medical management Depression (Chronic) Diabetic neuropathy (Chronic) GERD (gastroesophageal reflux disease) (Chronic) Tena's thyroiditis (Chronic) History of non-ST elevation myocardial infarction (NSTEMI) (Resolved) Hyperlipidemia (Chronic) Hypertension (Chronic) Mural thrombus of heart (Acute) Noted on echo November 2018 Pacemaker (Chronic) dual chamber Paroxysmal atrial tachycardia (Chronic) Polymyalgia rheumatica (Chronic) Sick sinus syndrome (Chronic) Type 2 diabetes mellitus (Chronic) Vitamin D deficiency (Chronic) Surgical History History of temporal artery biopsy Family History Father Stroke Other Family history non-contributory Social History Preferred Language: Croatian Communication Ability: Effective Business Development Required: No Beliefs That Will Affect Care: None marital status: Current Living Situation: Family Feels Safe at Home: Yes Safety Concerns: Feels Safe At This Time Smoking Status: Never smoker Hx Alcohol Use: No Hx Substance Use: No caffeine: Yes Seatbelt Use: always Review of Systems Review of Systems: All systems reviewed & are unremarkable except as noted in HPI & below Physical Exam Physical Exam: Constitutional: Elderly, male, WD/WN, vitals as above, NAD, sitting up in bed, pleasant, conversing easily Head: Normocephalic, Atraumatic Eyes: R eye pterygium, +blind L eye, anicteric sclerae ENMT: external ear and nose normal, oropharynx normal Neck: trachea midline, no thyromegaly normal visual inspection Respiratory: normal respiratory effort, lungs clear to auscultation, no wheeze, rales, rhonchi. Normal insp/exp effort, no accessory muscle use Cardiovascular: RRR, soft 1/6 LORETTA noted RUSB, no edema Vessels: no JVD or carotid bruit Chest: normal inspection of chest Abdomen: normal bowel sounds, soft, nontender, no hepatosplenomegaly Musculoskeletal: no cyanosis or clubbing, extremities motor strength 5/5 Skin: no rashes, warm and dry moderate turgor Neurologic: PERRL, EOMI, accommodation nl, no face palsy, no dysarthria CN's II-XI intact bilaterally and moves all extremities Psychiatric: A+Ox3 to basics, euthymic affect Lymphatic: no cervical or axillary lymphadenopathy : deferred Results & Data Results & Data ([facility]) Vital Signs (Past 12 Hours) Vital Signs Temp Pulse Resp BP Pulse Ox 09/09/19 12:40 70 98 09/09/19 12:31 71 21 96 09/09/19 12:30 73 20 142/70 H 96 09/09/19 12:20 73 15 09/09/19 12:10 71 12 98 09/09/19 12:01 70 21 98 09/09/19 12:00 70 16 156/102 H 91 09/09/19 11:50 70 16 09/09/19 11:40 73 20 99 09/09/19 11:30 70 18 138/84 97 09/09/19 11:20 70 16 98 09/09/19 11:10 76 28 H 97 09/09/19 11:01 71 17 98 09/09/19 11:00 70 16 144/68 H 100 09/09/19 10:53 99 09/09/19 10:50 71 13 100 09/09/19 10:49 37.4 C 7 L 17 127/83 99 09/09/19 10:46 72 14 127/83 99 09/09/19 10:45 72 16 09/09/19 10:44 126/67 Laboratory Results Short CBC 09/09/19 09/09/19 Range/Units 09:43 09:43 WBC 10.39 (4.8-10.8) K/uL Hgb 12.8 L (14.0-18.0) g/dL Hct 40.7 L (42-52) % Plt Count 370 (130-400) K/uL Creatinine 1.46 H (0.6-1.4) mg/dl BMP 09/09/19 09:43 Sodium 139 Potassium 4.0 Chloride 107 Carbon Dioxide 27 BUN 24 H Creatinine 1.46 H Glucose 145 H Calcium 8.9 Cardiac Enzymes 09/09/19 Range/Units 09:43 Troponin I < 0.015 (0-0.045) ng/ml Liver Function 09/09/19 Range/Units 09:43 Total Bilirubin 0.4 (0.2-1) mg/dl AST 14 L (15-37) U/L ALT 30 (12-78) U/L Alkaline Phosphatase 107 (45-117) U/L Albumin 3.4 (3.4-5.0) gm/dl Diagnostic Findings CXR: IMPRESSION: 1. Cardiomegaly and cardiac pacemaker. There is no radiographic evidence of congestive failure. 2. No airspace consolidation or large pleural effusion is identified. Head CT: IMPRESSION: 1. There is no hemorrhage, mass effect, or evidence of acute territorial ischemia by CT criteria. 2. Findings of pansinusitis as above. Medications Administered Discontinued Medications Amiodarone HCl (Cordarone) 200 mg PO NOW STA Stop: 09/09/19 13:02 Last Admin: 09/09/19 13:58 Dose: 200 mg Documented by: [id number] Hydrocortisone (Cortef) 20 mg PO NOW STA Stop: 09/09/19 13:02 Last Admin: 09/09/19 14:08 Dose: 20 mg Documented by: [id number] ECG Rate (beats per minute): 72 Findings: + RBBB and + paced rhythm Additional Comments: A paced with prolong AV conduction Code Status & VTE Plan Code Status DNR/DNI VTE Prophylaxis Plan VTE Prophylaxis will be ordered: Yes Supervising Physician Co-Signing Physician Notes Patient is an 79-year-old male with history of CAD, ischemic cardiomyopathy, sick sinus syndrome S/P pacemaker, paroxysmal atrial fibrillation, adrenal insufficiency and other medical problems presents with history of syncopal episode prior to arrival. He denies any precipitating events. He was confused after the syncopal episode. He is oriented while in ED. He thinks he lost consciousness for about 1 minute duration which was witnessed by his . He also states having similar episodes of syncope 2 weeks ago. Pacemaker was interrogated and while in ED. He was unsure whether he took his home medications this morning. CT head showed no acute intracranial abnormality but findings suggestive of pansinusitis likely chronic. On exam patient is moderately built and nourished, no apparent distress, normocephalic atraumatic, left eye legally blind, right eye pterygium, lungs--normal breath sounds, clear to auscultation,cvs-paced, systolic murmur, no pedal edema, abdomen soft nontender, normal bowel sounds, grossly no focal neurological deficits. Patient is admitted for management of syncopal episode, acute kidney injury. Monitor on telemetry for any rhythm issues. Check resting echo, carotid ultrasound. Also check EEG given confusion post syncopal. Cardiology consulted. Pacemaker interrogation done in ED. Hold diuretics for today. Monitor renal function, resume diuretics as able. I personally reviewed the record. Patient is interviewed and examined at bedside. Patient's care is coordinated with Lashae Cartwright PA-C. Please refer to the documentation above for details of patient's presentation and for discussion of other issues.
--- NOTE | 2019-09-09 14:41 | Electrocardiogram Report ---
Test Reason : Blood Pressure : / mmHG Vent. Rate : 072 BPM Atrial Rate : 072 BPM P-R Int : 386 ms QRS Dur : 152 ms QT Int : 444 ms P-R-T Axes : 000 -77 029 degrees QTc Int : 486 ms Atrial-paced rhythm with prolonged AV conduction Left axis deviation Right bundle branch block Inferior infarct , age undetermined Anterior infarct , age undetermined Abnormal ECG When compared with ECG of 22-FEB-2019 06:36, Anterior infarct is now Present Inferior infarct is now Present T wave inversion no longer evident in Lateral leads Confirmed by Perico Winston ([id number]) on 09/09/2019 2:41:12 PM Referred By: Confirmed By:Perico Winston
[2019-09-09] MEDS ORDERED: GLUCOSE 10 TABS/TUBE PO PRN (14:57)
[2019-09-09] MEDS ORDERED: CARBOHYDRATES FOR HYPOGLYCEMIA PO PRN (14:57)
[2019-09-09] MEDS ORDERED: GLUCAGON FOR INJ 1 MG VIAL SQ PRN (14:57)
[2019-09-09] MEDS ORDERED: ONDANSETRON INJ 2 MG/ML 2 ML VIAL IV PRN (14:57)
[2019-09-09] MEDS ORDERED: ACETAMINOPHEN 325 MG TAB PO PRN (14:57)
[2019-09-09] MEDS ORDERED: DEXTROSE 50% 50 ML SYRINGE IV PRN (14:57)
[2019-09-09] MEDS ORDERED: ALBUTEROL HFA 8 GM INHALER INH PRN (14:57)
[2019-09-09] MEDS ORDERED: ALUMINUM/MAGNESIUM SUSP 30 ML UDC PO PRN (14:57)
[2019-09-09] MEDS ORDERED: POLYETHYLENE (MIRALAX) 17 GM PACK PO PRN (14:57)
[2019-09-09] MEDS ORDERED: GLUCOSE 40% GEL 15 GM TUBE PO PRN (14:57)
[2019-09-09] MEDS: ZAFIRLUKAST 20 MG SCH ×2 (16:11→22:56)
[2019-09-09] MEDS: INSULIN ASPART 100 UNITS/ML 3 ML PEN SC SCH ×2 (17:01→21:09)
[2019-09-09] MEDS: WARFARIN SOD 1.25 MG TAB PO SCH (17:15)
--- NOTE | 2019-09-09 18:32 | Ultrasound Report ---
ULTRASOUND OF THE CAROTID ARTERIES CLINICAL HISTORY: Syncope. COMPARISON STUDY: No priors. TECHNIQUE: Real-time, grayscale, and color Doppler sonography of the carotid arteries is performed. I mages are reviewed in the transverse and longitudinal planes. FINDINGS: Blood pressures were not assessed due to the presence of IV catheters. The carotid arteries are patent bilaterally and demonstrate antegrade flow. There is moderate echogen ic shadowing atherosclerotic plaque seen in the carotid bulbs bilaterally. Normal doppler arterial wa veforms are seen throughout. Velocity measurements are listed below. Common carotid peak systolic velocity (cm/sec): RIGHT: 56 LEFT: 59 ICA proximal peak systolic velocity (cm/sec): RIGHT: 202 LEFT: 62 ICA mid peak systolic velocity (cm/sec): RIGHT: 75 LEFT: 86 ICA distal peak systolic velocity (cm/sec): RIGHT: 44 LEFT: 88 ICA/CC peak systolic ratio: RIGHT: 3.6 LEFT: 1.8 Antegrade flow was shown in the vertebral arteries. The external carotid arteries are patent. IMPRESSION: 1. 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 2. There is no sonographic evidence of hemodynamically significant stenosis in the left carotid arter ial system. 3. Antegrade flow is shown in the vertebral arteries. ACT 112: Negative or not required by law. Electronically signed by: Osei Pyle M.D. 09/09/2019 6:30 PM
[2019-09-09] MEDS: GABAPENTIN 300 MG CAP PO SCH (19:49)
[2019-09-09] MEDS: PRAVASTATIN SOD 40 MG TAB PO SCH (19:49)
[2019-09-09] MEDS: HYDROCORTISONE 10 MG TAB PO SCH (19:50)
[2019-09-09] MEDS: INSULIN GLARGINE SOLOSTAR 100 UNITS/ML 3 ML PEN SC SCH (21:09)
[2019-09-10] MEDS: LEVOTHYROXINE SODIUM 75 MCG TABLET PO SCH (05:09)
[2019-09-10 07:19] LABS: Hematocrit (blood only) 38.7 % (42-52); Mean Corpuscular Hemoglobin 25.9 pg (25-34); Mean Corpuscular Volume 83.6 fL (80-100); Mean Platelet Volume 10.5 fL (7.4-10.4); Platelet Count 308 K/uL (130-400); RDW Coefficient of Variation 17.5 % (11.5-14.5); RDW Standard Deviation 53.4 fL (36.4-46.3); Red Blood Count 4.63 M/uL (4.7-6.1); White Blood Count 9.27 K/uL (4.8-10.8)
[2019-09-10 07:33] LABS: INR 2.6 (0.9-1.1); Prothrombin Time 26.2 Seconds (9.0-12.0)
[2019-09-10 07:43] LABS: BUN Creatinine Ratio 16.8 (10-20); Calcium 8.5 mg/dl (8.5-10.1); Creatinine Clr Calc Pharmacy 54.8 ml/min; Est GFR (African American) 65.3; Est GFR (Non-African American) 56.4; Potassium 4.1 mmol/L (3.5-5.1)
[2019-09-10] MEDS ORDERED: SPIRONOLACTONE 12.5 MG TAB PO SCH (09:00)
[2019-09-10] MEDS: PANTOprazole 40 MG TAB PO SCH (09:10)
[2019-09-10] MEDS: TORSEMIDE 10 MG TAB PO SCH (09:10)
[2019-09-10] MEDS: METOPROLOL SUCC 25MG EXT REL TAB PO SCH (09:10)
[2019-09-10] MEDS: CLOPIDOGREL BISULFATE 75 MG TAB PO SCH (09:10)
[2019-09-10] MEDS: ESCITALOPRAM OXALATE 10 MG TAB PO SCH (09:10)
[2019-09-10] MEDS: HYDROCORTISONE 10 MG TAB PO SCH ×2 (09:11→21:28)
[2019-09-10] MEDS: AMIODARONE 200 MG TAB PO SCH (09:11)
[2019-09-10] MEDS: ZAFIRLUKAST 20 MG SCH ×2 (09:12→17:05)
[2019-09-10] MEDS: INSULIN ASPART 100 UNITS/ML 3 ML PEN SC SCH ×4 (09:12→21:29)
[2019-09-10] MEDS: FLUTICASONE/VILANTEROL 200/25MCG 14 PUFFS/INHALER INH SCH (09:13)
[2019-09-10 09:39] LABS: Estimated Average Glucose 203 mg/dl; Hemoglobin A1C 8.7 % (4.5-5.6)
--- NOTE | 2019-09-10 11:44 | Electrocardiogram Report ---
Test Reason : Blood Pressure : / mmHG Vent. Rate : 063 BPM Atrial Rate : 063 BPM P-R Int : 348 ms QRS Dur : 174 ms QT Int : 478 ms P-R-T Axes : 000 -73 064 degrees QTc Int : 489 ms Atrial-paced rhythm with prolonged AV conduction Left axis deviation Right bundle branch block Minimal voltage criteria for LVH, may be normal variant ( R in aVL ) Cannot rule out Inferior infarct Abnormal ECG When compared with ECG of 09-SEP-2019 10:48, Criteria for Anterior infarct are no longer Present Confirmed by Perico Winston ([id number]) on 09/10/2019 11:44:13 AM Referred By: REFERRED SELF Confirmed By:Perico Winston
--- NOTE | 2019-09-10 12:59 | Electroencephalogram ---
EEG Procedure Note Date of Service September 10, 2019 Start / End Times Start Time: 05:54 End Time: 06:14 Referring Physician Lashae Cartwright PA-C History An 79-year-old male admitted with syncopal episode. EEG performed for evaluation of epileptiform activity. Home Medication List Home Medications Medication Instructions Recorded Confirmed Type albuterol sulfate 2 puff INHALATION QID PRN 01/30/18 09/09/19 History metoprolol succinate 25 mg PO QAM 01/30/18 09/09/19 History omeprazole 20 mg PO QAM 07/25/18 09/09/19 History gabapentin 300 mg capsule 300 mg PO HS #90 cap 11/10/18 09/09/19 Rx acetaminophen [Tylenol] 325 mg PO Q6H PRN 11/23/18 09/09/19 History blood sugar diagnostic #200 ea 12/04/18 12/25/18 Rx hydrocortisone 10 mg tablet 10 mg PO HS #90 tab 01/17/19 09/09/19 Rx insulin glargine 100 unit/mL (3 25 units SQ HS #15 ml 01/17/19 09/09/19 Rx mL) subcutaneous pen amiodarone 200 mg PO QAM 02/20/19 09/09/19 History levothyroxine 75 mcg PO QAM 02/20/19 09/09/19 History spironolactone 12.5 mg PO MOWEFR 02/20/19 09/09/19 History torsemide 10 mg PO QAM 02/20/19 09/09/19 History polyethylene glycol 3350 [Miralax] 17 g PO DAILY 30 Days #30 ea 02/24/19 09/09/19 Rx pravastatin 40 mg tablet 40 mg PO HS #90 tab 05/07/19 09/09/19 Rx hydrocortisone 20 mg tablet 20 mg PO QAM #90 tab 05/22/19 09/09/19 Rx pen needle, diabetic 32 gauge x #200 ea 05/28/19 Rx 5/32" budesonide-formoterol HFA 160 2 puff INHALATION BID #10.2 gm 05/31/19 09/09/19 Rx mcg-4.5 mcg/actuation aerosol inhaler clopidogrel 75 mg tablet 75 mg PO QAM #30 tab 08/01/19 09/09/19 Rx escitalopram oxalate 10 mg PO DAILY 09/09/19 09/09/19 History warfarin 1.25 mg PO SUTUTH 09/09/19 09/09/19 History warfarin 2.5 mg PO MOWEFRSA 09/09/19 09/09/19 History zafirlukast 20 mg PO BID 09/09/19 09/09/19 History Inpatient Medication List Amiodarone HCl (Cordarone) 200 mg PO [facility] Stop: 10/10/19 08:59 Last Admin: 09/10/19 09:11 Dose: 200 mg Documented by: [id number] Cl[facility]id[facility] ([facility]ix) [facility]: 10/10/19 08:59 Last Admin: 09/10/19 09:10 Dose: 75 mg Documented by: [id number] Escitalopram Oxalate (Lexapro Tab) 10 mg PO DAILY [facility] Stop: 10/10/19 08:59 Last Admin: 09/10/19 09:10 Dose: 10 mg Documented by: [id number] Fluticasone/Vilanterol (Breo Ellipta 200/25 Mcg Inh) 1 puffs INH DAILY [facility] Stop: 10/10/19 08:59 Last Admin: 09/10/19 09:13 Dose: 1 puffs Documented by: [id number] Gabapentin (Neurontin) 300 mg PO [facility] Stop: 10/09/19 20:59 Last Admin: 09/09/19 19:49 Dose: 300 mg Documented by: [id number] Hydrocortisone (Cortef) [facility] Stop: 10/10/19 08:59 Last Admin: 09/10/19 09:11 Dose: 20 mg Documented by: [id number] Hydrocortisone (Cortef) 10 mg PO [facility] Stop: 10/09/19 20:59 Last Admin: 09/09/19 19:50 Dose: 10 mg Documented by: [id number] Insulin Aspart (Novolog Flexpen) 0 units SC [facility] Stop: 10/09/19 16:29 Last Admin: 09/10/19 09:12 Dose: 2 units Documented by: [id number] Cosigned by: [id number] Admin: 09/09/19 21:09 Dose: Not Given Documented by: [id number] Cosigned by: [id number] Admin: 09/09/19 17:01 Dose: 3 units Documented by: [id number] Cosigned by: [id number] Insulin Glargine (Lantus Solostar Pen) 0 units SC [facility]; Protocol Stop: 10/09/19 20:59 Last Admin: 09/09/19 21:09 Dose: 10 units Documented by: [id number] Cosigned by: [id number] [facility]othy[facility]ine [facility]) [facility] Stop: 10/10/19 06:29 Last Admin: 09/10/19 05:09 Dose: 75 mcg Documented by: [id number] Metoprolol Succinate (Toprol Xl) 25 mg PO [facility] Stop: 10/10/19 08:59 Last Admin: 09/10/19 09:10 Dose: 25 mg Documented by: [id number] Miscellaneous (Order Awaiting Action) 1 ea N/A QS [facility] Stop: 10/09/19 15:59 Last Admin: 09/10/19 09:12 Dose: Not Given Documented by: [id number] Admin: 09/09/19 22:56 Dose: Not Given Documented by: [id number] Admin: 09/09/19 16:11 Dose: Not Given Documented by: [id number] Pantoprazole Sodium (Protonix) 40 mg PO [facility] Stop: 10/10/19 08:59 Last Admin: 09/10/19 09:10 Dose: 40 mg Documented by: [id number] Pravastatin Sodium (Pravachol) 40 mg PO [facility] Stop: 10/09/19 20:59 Last Admin: 09/09/19 19:49 Dose: 40 mg Documented by: [id number] Spironolactone (Aldactone) 12.5 mg PO MoWeFr@0900 [facility] Stop: 10/10/19 08:59 Last Admin: 09/10/19 09:10 Dose: 12.5 mg Documented by: [id number] Torsemide (Demadex) 10 mg PO [facility] Stop: 10/10/19 08:59 Last Admin: 09/10/19 09:10 Dose: 10 mg Documented by: [id number] Warfarin Sodium (Coumadin) 1.25 mg PO SuTuTh@1600 [facility] Stop: 10/09/19 15:59 Last Admin: 09/09/19 17:15 Dose: 1.25 mg Documented by: [id number] Discontinued Medications Amiodarone HCl (Cordarone) 200 mg PO [facility] Stop: 09/09/19 13:02 Last Admin: 06/21/20 13:58 Dose: 200 mg Documented by: [id number] Hydrocortisone (Cortef) 20 mg PO [facility] Stop: 09/09/19 13:02 Last Admin: 09/09/19 14:08 Dose: 20 mg Documented by: [id number] Description This is a 21 electrode EEG with a single channel dedicated to limited EKG. The electrodes were placed in accordance with the International 10-20 system. Report: At the onset of the EEG the patient is drowsy. The background is symmetric And predominantly consists of 6-7 Hz theta activity. Drowsiness is characterized by increased delta activity, reduced myogenic artifact, and reduced blink rate. No stage 2 sleep transients are recorded. Photic stimulation does not induce any additional abnormalities. Impression: This is a normal drowsy routine EEG. No epileptiform discharges are recorded. A repeat outpatient routine EEG when the patient is more awake may be beneficial to better characterize the awake background if clinically appropriate.
--- NOTE | 2019-09-10 15:27 | Cardiology Consultation ---
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 I would not recommend any additional cardiac testing at this time. I would leave him on telemetry tonight and if he has no further symptoms and the telemetry remained stable then he can be discharged to outpatient follow-up. History of Present Illness Attending Physician: Emiliano Rivera MD History of Present Illness This is an elderly 79-year-old male patient who was in his usual state of health until this morning. According the patient he felt really good and was going to go outside and work in his garden this morning so he got out of bed and went to have some breakfast. He then had a witnessed syncopal event where he was out for several seconds. He then was brought to the emergency department by his family. The patient has the history as outlined below with chronic but stable angina, paroxysmal atrial fibrillation, ischemic cardiomyopathy with an estimated left ventricular ejection fraction of around 39% and a permanent pacemaker for sick sinus syndrome. According the patient, he has had a long history of syncope dating back 15 to 20 years. He states that no one has ever been able to tell him why he developed syncope. He states it happened suddenly. No warning. Nothing that would suggest a vagal event. No prior history of strokes or seizures. He has no complaints at present. His pacemaker was interrogated in the emergency department is functioning appropriately. Thus far on telemetry he has a stable rhythm. Past medical history: 1.Ischemic cardiomyopathy, EF 39%. 2.Normovolemic. 3.Be[employer] class II angina 4.Paroxysmal atrial fibrillation 5.LV mural thrombus, resolved. 6.Frequent ventricular ectopy 7.Chronic Coumadin anticoagulation 8.Sick sinus syndrome status post cardiac pacemaker implantation 9.Hypertension 10.Dyslipidemia Allergies Allergy/AdvReac Type Severity Reaction Status Date / Time aspirin Allergy Unknown DOES NOT Verified 09/09/19 11:41 TAKE D/T ASTHMA citric acid AdvReac Verified 09/09/19 11:41 [From [facility]] NSAIDS (Non-Steroidal AdvReac Verified 09/09/19 11:41 Anti-Inflamma sodium bicarbonate AdvReac Verified 09/09/19 11:41 [From [facility]] Home Medications Home Medications Medication Instructions Recorded Confirmed Type albuterol sulfate 2 puff INHALATION QID PRN 01/30/18 09/09/19 History metoprolol succinate 25 mg PO QAM 01/30/18 09/09/19 History omeprazole 20 mg PO QAM 07/25/18 09/09/19 History gabapentin 300 mg capsule 300 mg PO HS #90 cap 11/10/18 09/09/19 Rx acetaminophen [Tylenol] 325 mg PO Q6H PRN 11/23/18 09/09/19 History blood sugar diagnostic #200 ea 12/04/18 12/25/18 Rx hydrocortisone 10 mg tablet 10 mg PO HS #90 tab 01/17/19 09/09/19 Rx insulin glargine 100 unit/mL (3 25 units SQ HS #15 ml 01/17/19 09/09/19 Rx mL) subcutaneous pen amiodarone 200 mg PO QAM 02/20/19 09/09/19 History levothyroxine 75 mcg PO QAM 02/20/19 09/09/19 History spironolactone 12.5 mg PO MOWEFR 02/20/19 09/09/19 History torsemide 10 mg PO QAM 02/20/19 09/09/19 History polyethylene glycol 3350 [Miralax] 17 g PO DAILY 30 Days #30 ea 02/24/19 09/09/19 Rx pravastatin 40 mg tablet 40 mg PO HS #90 tab 05/07/19 09/09/19 Rx hydrocortisone 20 mg tablet 20 mg PO QAM #90 tab 05/22/19 09/09/19 Rx pen needle, diabetic 32 gauge x #200 ea 05/28/19 Rx 5/32" budesonide-formoterol HFA 160 2 puff INHALATION BID #10.2 gm 05/31/19 09/09/19 Rx mcg-4.5 mcg/actuation aerosol inhaler clopidogrel 75 mg tablet 75 mg PO QAM #30 tab 08/01/19 09/09/19 Rx escitalopram oxalate 10 mg PO DAILY 09/09/19 09/09/19 History warfarin 1.25 mg PO SUTUTH 09/09/19 09/09/19 History warfarin 2.5 mg PO MOWEFRSA 09/09/19 09/09/19 History zafirlukast 20 mg PO BID 09/09/19 09/09/19 History Patient History Medical History Adrenal insufficiency (Chronic) Anxiety (Chronic) Asthma (Chronic) Atrial fibrillation with RVR (Resolved) BPH (benign prostatic hyperplasia) (Chronic) Chronic renal insufficiency (Chronic) 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) Coronary artery disease (Chronic) multi-vessel disease - medical management Depression (Chronic) Diabetic neuropathy (Chronic) GERD (gastroesophageal reflux disease) (Chronic) Tena's thyroiditis (Chronic) History of non-ST elevation myocardial infarction (NSTEMI) (Resolved) Hyperlipidemia (Chronic) Hypertension (Chronic) Mural thrombus of heart (Acute) Noted on echo November 2018 Pacemaker (Chronic) dual chamber Paroxysmal atrial tachycardia (Chronic) Polymyalgia rheumatica (Chronic) Sick sinus syndrome (Chronic) Type 2 diabetes mellitus (Chronic) Vitamin D deficiency (Chronic) Surgical History History of temporal artery biopsy Family History Father Stroke Other Family history non-contributory Social History Preferred Language: Ukrainian Communication Ability: Effective Residential Youth Counselor Required: No Beliefs That Will Affect Care: None marital status: Current Living Situation: Family Feels Safe at Home: Yes Safety Concerns: Feels Safe At This Time Smoking Status: Never smoker Hx Alcohol Use: No Hx Substance Use: No caffeine: Yes Seatbelt Use: always Review of Systems Review of Systems: All systems reviewed & are unremarkable except as noted in HPI & below Nothing additional to add. Physical Exam Physical Exam: General: no acute distress and stated age Head: normocephalic, no masses, lesions, tenderness or abnormalities Eyes: conjunctiva are pink and non-injected, sclera clear Neck: supple, no adenopathy, no bruits, normal jugular venous pulse, no hepatojugular reflux Chest: normal shape and normal respiratory effort Lungs: clear to auscultation and percussion Cardiac Exam: - regular rate & rhythm, no murmurs gallops or rubs - normal S1, normal S2 Pulses: 2(+) throughout Abdomen: abdomen soft, non-tender, no abnormal masses and no hepatosplenomegaly Musculoskeletal: no gait disturbance, no joint inflammation, no deforming arthritis Extremities: no edema and no cyanosis Neuro: grossly normal exam Results & Data ([facility]) Vital Signs (Past 12 Hours) Vital Signs Temp Pulse Pulse Resp BP Pulse Ox 09/10/19 11:17 36.3 C L 69 18 157/79 H 93 09/10/19 07:31 63 09/10/19 07:21 36.9 C 62 18 162/73 H 98 Laboratory Results Laboratory Results - last 24 hr 09/09/19 09/09/19 09/09/19 16:41 20:36 20:58 WBC RBC Hgb Hct MCV MCH MCHC RDW Std Deviation RDW Coeff of Andrew Plt Count MPV PT INR Sodium Potassium Chloride Carbon Dioxide Anion Gap BUN Creatinine Est Cr Clr Drug Dosing Est GFR ( Amer) Est GFR (Non-Af Amer) BUN/Creatinine Ratio Glucose POC Glucose 123 H 152 H Estimat Average Glucose Hemoglobin A1c Calcium Troponin I < 0.015 09/10/19 09/10/19 09/10/19 06:56 06:56 06:56 WBC 9.27 RBC 4.63 L Hgb 12.0 L Hct 38.7 L MCV 83.6 MCH 25.9 MCHC 31.0 L RDW Std Deviation 53.4 H RDW Coeff of Andrew 17.5 H Plt Count 308 MPV 10.5 H PT 26.2 H INR 2.6 H Sodium 139 Potassium 4.1 Chloride 108 H Carbon Dioxide 25 Anion Gap 6.0 BUN 20 H Creatinine 1.20 Est Cr Clr Drug Dosing 54.8 Est GFR ( Amer) 65.3 Est GFR (Non-Af Amer) 56.4 BUN/Creatinine Ratio 16.8 Glucose 126 H POC Glucose Estimat Average Glucose Hemoglobin A1c Calcium 8.5 Troponin I 09/10/19 09/10/19 09/10/19 06:56 07:17 11:47 WBC RBC Hgb Hct MCV MCH MCHC RDW Std Deviation RDW Coeff of Andrew Plt Count MPV PT INR Sodium Potassium Chloride Carbon Dioxide Anion Gap BUN Creatinine Est Cr Clr Drug Dosing Est GFR ( Amer) Est GFR (Non-Af Amer) BUN/Creatinine Ratio Glucose POC Glucose 148 H 187 H Estimat Average Glucose 203 Hemoglobin A1c 8.7 H Calcium Troponin I Diagnostic Findings Echocardiogram completed this admission reveals an estimated left ventricular ejection fraction of around 45%. No significant valvular pathology. Medications Administered Current Inpatient Medications Acetaminophen (Tylenol) 650 mg PO Q4H PRN PRN Reason: Pain or Fever Stop: 10/09/19 14:56 Al Hydrox/Mg Hydrox/Simethicone (Maalox) 15 ml PO Q4H PRN PRN Reason: Dyspepsia Stop: 10/09/19 14:56 Albuterol (Ventolin Hfa) 2 puffs INH QID PRN PRN Reason: Shortness Of Breath Or Wheezing Stop: 10/09/19 14:56 Amiodarone HCl (Cordarone) 200 mg PO QAM [facility] Stop: 10/10/19 08:59 Last Admin: 09/10/19 09:11 Dose: 200 mg Documented by: Clopidogrel Bisulfate (Plavix) 75 mg PO QAM [facility] Stop: 10/10/19 08:59 Last Admin: 09/10/19 09:10 Dose: 75 mg Documented by: Dextrose (Dextrose 50%) 25 - 50 ml IV UD PRN; Protocol PRN Reason: Hypoglycemia Protocol Stop: 10/09/19 14:56 Escitalopram Oxalate (Lexapro Tab) 10 mg PO DAILY [facility] Stop: 10/10/19 08:59 Last Admin: 09/10/19 09:10 Dose: 10 mg Documented by: Fluticasone/Vilanterol (Breo Ellipta 200/25 Mcg Inh) 1 puffs INH DAILY [facility] Stop: 10/10/19 08:59 Last Admin: 09/10/19 09:13 Dose: 1 puffs Documented by: Gabapentin (Neurontin) 300 mg PO HS [facility] Stop: 10/09/19 20:59 Last Admin: 09/09/19 19:49 Dose: 300 mg Documented by: Glucagon (Glucagen) 1 mg SQ UD PRN; Protocol PRN Reason: Hypoglycemia Protocol Stop: 10/09/19 14:56 Glucose (Dex4 Glucose) 4 - 8 tabs PO UD PRN; Protocol PRN Reason: Hypoglycemia Protocol Stop: 10/09/19 14:56 Glucose (Glucose 40%) 15 - 30 gm PO UD PRN; Protocol PRN Reason: Hypoglycemia Protocol Stop: 10/09/19 14:56 Hydrocortisone (Cortef) 20 mg PO QAM [facility] Stop: 10/10/19 08:59 Last Admin: 09/10/19 09:11 Dose: 20 mg Documented by: Hydrocortisone (Cortef) 10 mg PO [facility] Stop: 10/09/19 20:59 Last Admin: 09/09/19 19:50 Dose: 10 mg Documented by: Insulin Aspart (Novolog Flexpen) 0 units SC [facility] Stop: 10/09/19 16:29 Last Admin: 09/10/19 13:12 Dose: 4 units Documented by: Insulin Glargine (Lantus Solostar Pen) 0 units SC [facility]; Protocol Stop: 10/09/19 20:59 Last Admin: 09/09/19 21:09 Dose: 10 units Documented by: [facility]othy[facility]ine [facility] ([facility]) [facility] Stop: 10/10/19 06:29 Last Admin: 09/10/19 05:09 Dose: 75 mcg Documented by: Metoprolol Succinate (Toprol Xl) 25 mg PO [facility] Stop: 10/10/19 08:59 Last Admin: 09/10/19 09:10 Dose: 25 mg Documented by: Miscellaneous (Carbohydrates For Hypoglycemia) 15 - 30 gm PO UD PRN PRN Reason: Hypoglycemia Protocol Stop: 10/09/19 14:56 Miscellaneous (Order Awaiting Action) 1 ea N/A QS [facility] Stop: 10/09/19 15:59 Last Admin: 09/10/19 09:12 Dose: Not Given Documented by: Ondansetron HCl (Zofran) 4 mg IV Q6H PRN PRN Reason: Nausea Stop: 10/09/19 14:56 Pantoprazole Sodium (Protonix) 40 mg PO [facility] Stop: 10/10/19 08:59 Last Admin: 09/10/19 09:10 Dose: 40 mg Documented by: Polyethylene Glycol (Miralax Powder Packet) 17 gm PO DAILY PRN PRN Reason: Constipation Stop: 10/09/19 14:56 Pravastatin Sodium (Pravachol) 40 mg PO [facility] Stop: 10/09/19 20:59 Last Admin: 09/09/19 19:49 Dose: 40 mg Documented by: Spironolactone (Aldactone) 12.5 mg PO MoWeFr@0900 [facility] Stop: 10/10/19 08:59 Last Admin: 09/10/19 09:10 Dose: 12.5 mg Documented by: Torsemide (Demadex) 10 mg PO QAM [facility] Stop: 10/10/19 08:59 Last Admin: 09/10/19 09:10 Dose: 10 mg Documented by: Warfarin Sodium (Coumadin) 2.5 mg PO MoWeFrSa@1600 [facility] Stop: 10/10/19 15:59 Warfarin Sodium (Coumadin) 1.25 mg PO SuTuTh@1600 [facility] Stop: 10/09/19 15:59 Last Admin: 09/09/19 17:15 Dose: 1.25 mg Documented by: (1) CKD (chronic kidney disease) Chronic kidney disease stage: stage 3 (moderate) Qualified Code(s): N18.3 - Chronic kidney disease, stage 3 (moderate) (2) Syncope Syncope type: unspecified Qualified Code(s): R55 - Syncope and collapse
[2019-09-10] MEDS ORDERED: WARFARIN SOD 2.5 MG TAB PO SCH (16:00)
--- NOTE | 2019-09-10 19:29 | Hospitalist Progress Note ---
Date of Service September 10, 2019 Assessment & Plan (1) Syncope: This is an 79-year-old male who has significant past medical history of CAD with ischemic cardiomyopathy, heart failure with reduced ejection fraction, SSS status post pacemaker, HTN, HLD, paroxysmal atrial fibrillation anticoagulated on warfarin, insulin-dependent T2DM, adrenal insufficiency, CKD stage III, PMR, hypothyroidism, diabetic neuropathy and nephropathy, depression with anxiety, BPH, vitamin D deficiency and GERD who presents to ED after sustaining a syncopal episode prior to arrival. According to ED provider after syncopal episode EMS was called. Patient's blood glucose was within normal limits. He was not hypoglycemic. He was found to be tachycardic upon arrival and was given a 250 mL bolus of IVF with improvement of his heart rate. In ED he has remained hemodynamically stable and is otherwise felt well and much improved. Lab work notable for WBC 10.39, H&H 12.8 and 40.7, platelet 370, INR 2.6, BUN 24, creatinine 1.46, phos 2.8, mag 2.2, troponin WNL, TSH 5.59, free T4 1.16. He elicits he took his morning levothyroxine, but otherwise not take a.m. meds on day of admission, including amiodarone or hydrocortisone. admit to telemetry -monitor for arrhythmia CT head ordered -revealed no acute intracranial abnormality, chronic pansinusitis noted -patient is without URI symptoms echocardiogram ordered, pending Cycle troponins Pacemaker interrogated in ED Consult cardiology EEG ordered -due to patient reporting confusion post syncopal episode rule out seizure, EEG done this morning, negative Orthostatic blood pressures positive this morning Held torsemide on admission Neurochecks (2) Acute worsening of stage 3 chronic kidney disease: Baseline creatinine 1.1 BUN/creatinine 44 and 1.46 He did receive 250 IVF in route Held torsemide on admission Creatinine now improved to 1.2 (3) Heart failure with reduced ejection fraction due to cardiomyopathy: Patient with ischemic cardiomyopathy last echocardiogram 01/2019 revealed EF 40 to 45% Continue metoprolol and resume torsemide and Aldactone in a.m. Previously had been on lisinopril, but discontinued secondary to symptomatic hypotension Monitor daily weights, strict I's and O's baseline weight 189-193 Heart healthy, low-sodium diet pt appears euvolemic and renal fxn mildly elevated held torsemide on admission, resume in a.m. cardiology consulted (4) Type 2 diabetes mellitus: Last A1c 7.8 11/2018 Obtain A1c in a.m. Lantus/NovoLog per protocol (5) Coronary artery disease: History of multivessel coronary artery disease discovered via cardiac cath 11/2018, not amenable to PCI and patient not a candidate for CABG Continue medical management troponins x3 - negative Cardiology consulted Continue metoprolol, Plavix, warfarin (6) Paroxysmal A-fib: Continue amiodarone, metoprolol and warfarin for stroke prophylaxis INR is therapeutic Monitor QTC (7) Mural thrombus of heart: Discovered via echocardiogram 11/2018 Patient anticoagulated on warfarin (8) Hypertension: Blood pressure stable in ED Obtain orthostatic blood pressures Continue metoprolol, Aldactone and torsemide in a.m. (9) Adrenal insufficiency: Continue hydrocortisone (10) Sick sinus syndrome: s/p PPM ekg reviewed pacer interrogated in ED per provider by [facility], no significant abnormalities awaiting report (11) Tena's thyroiditis: Continue levothyroxine TSH 5.59, free T4 1.16 (12) Hyperlipidemia: Continue statin (13) Asthma: No acute exacerbation No current use of oxygen at bedtime Continue Symbicort, as needed albuterol, zafirlukast (14) Diabetic neuropathy: Continue gabapentin (15) Depression: Mood stable Continue citalopram, QTC 486 MS (16) GERD (gastroesophageal reflux disease): Continue omeprazole (17) DVT prophylaxis: Continue warfarin, INR 2.6 Home regimen of 1.25 mg Tuesday, 2.5 mg all other days Disposition: Admit to telemetry Follow-up: PCP Dr. Quintero upon discharge Admission and Anticipated Discharge Date Admission Date: September 09, 2019 Subjective Patient is currently lying in bed, in no acute distress. Denies any fevers, chills, chest pain, shortness of breath, abdominal pain, nausea or vomiting. He denies any dizziness or lightheadedness however he says that he has been lying in bed. When he stands up, he does report mild dizziness occasionally. Diuretics were held on admission, creatinine today improved. Orthostatic vital signs this morning positive. EEG negative. Echo and cardiology consult pending. Review of Systems Review of Systems: All systems reviewed & are unremarkable except as noted in HPI & below Constitutional: no fever and no chills Respiratory: no cough and no dyspnea Cardiovascular: no chest pain and no palpitations Gastrointestinal: no abdominal pain, no nausea and no vomiting Physical Exam Physical Exam: Constitutional: Elderly, male, WD/WN, vitals as above, NAD, sitting up in bed, pleasant, conversing easily Head: Normocephalic, Atraumatic Eyes: R eye pterygium, +blind L eye, anicteric sclerae ENMT: external ear and nose normal, oropharynx normal Neck: trachea midline, no thyromegaly normal visual inspection Respiratory: normal respiratory effort, lungs clear to auscultation, no wheeze, rales, rhonchi. Normal insp/exp effort, no accessory muscle use Cardiovascular: RRR, soft 1/6 LOR[place] noted RUSB, no edema Vessels: no JVD or carotid bruit Chest: normal inspection of chest Abdomen: normal bowel sounds, soft, nontender, no hepatosplenomegaly Musculoskeletal: no cyanosis or clubbing, extremities motor strength 5/5 Skin: no rashes, warm and dry moderate turgor Neurologic: PERRL, EOMI, accommodation nl, no face palsy, no dysarthria CN's II-XI intact bilaterally and moves all extremities Psychiatric: A+Ox3 to basics, euthymic affect Results & Data Results & Data ([facility]) Vital Signs (Past 12 Hours) Vital Signs Temp Pulse Pulse Pulse Resp BP Pulse Ox 09/10/19 15:57 36.6 C 73 18 129/70 98 09/10/19 15:37 71 09/10/19 11:17 36.3 C L 69 18 157/79 H 93 09/10/19 07:31 63 Laboratory Results 09/10/19 09/10/19 09/10/19 Range/Units 16:56 11:47 07:17 WBC (4.8-10.8) K/uL RBC (4.7-6.1) M/uL Hgb (14.0-18.0) g/dL Hct (42-52) % MCV (80-100) fL MCH (25-34) pg MCHC (32-36) g/dL RDW Std Deviation (36.4-46.3) fL RDW Coeff of Andrew (11.5-14.5) % Plt Count (130-400) K/uL MPV (7.4-10.4) fL PT (9.0-12.0) Seconds INR (0.9-1.1) Sodium (136-145) mmol/L Potassium (3.5-5.1) mmol/L Chloride (98-107) mmol/L Carbon Dioxide (21-32) mmol/L Anion Gap (3-11) BUN (7-18) mg/dl Creatinine (0.6-1.4) mg/dl Est Cr Clr Drug Dosing ml/min Est GFR ( Amer) Est GFR (Non-Af Amer) BUN/Creatinine Ratio (10-20) Glucose (70-99) mg/dl POC Glucose 164 H 187 H 148 H (70-99) mg/dl Estimat Average Glucose mg/dl Hemoglobin A1c (4.5-5.6) % Calcium (8.5-10.1) mg/dl Troponin I (0-0.045) ng/ml 09/10/19 09/10/19 09/10/19 Range/Units 06:56 06:56 06:56 WBC (4.8-10.8) K/uL RBC (4.7-6.1) M/uL Hgb (14.0-18.0) g/dL Hct (42-52) % MCV (80-100) fL MCH (25-34) pg MCHC (32-36) g/dL RDW Std Deviation (36.4-46.3) fL RDW Coeff of Andrew (11.5-14.5) % Plt Count (130-400) K/uL MPV (7.4-10.4) fL PT 26.2 H (9.0-12.0) Seconds INR 2.6 H (0.9-1.1) Sodium 139 (136-145) mmol/L Potassium 4.1 (3.5-5.1) mmol/L Chloride 108 H (98-107) mmol/L Carbon Dioxide 25 (21-32) mmol/L Anion Gap 6.0 (3-11) BUN 20 H (7-18) mg/dl Creatinine 1.20 (0.6-1.4) mg/dl Est Cr Clr Drug Dosing 54.8 ml/min Est GFR ( Amer) 65.3 Est GFR (Non-Af Amer) 56.4 BUN/Creatinine Ratio 16.8 (10-20) Glucose 126 H (70-99) mg/dl POC Glucose (70-99) mg/dl Estimat Average Glucose 203 mg/dl Hemoglobin A1c 8.7 H (4.5-5.6) % Calcium 8.5 (8.5-10.1) mg/dl Troponin I (0-0.045) ng/ml 09/10/19 09/09/19 09/09/19 Range/Units 06:56 20:58 20:36 WBC 9.27 (4.8-10.8) K/uL RBC 4.63 L (4.7-6.1) M/uL Hgb 12.0 L (14.0-18.0) g/dL Hct 38.7 L (42-52) % MCV 83.6 (80-100) fL MCH 25.9 (25-34) pg MCHC 31.0 L (32-36) g/dL RDW Std Deviation 53.4 H (36.4-46.3) fL RDW Coeff of Andrew 17.5 H (11.5-14.5) % Plt Count 308 (130-400) K/uL MPV 10.5 H (7.4-10.4) fL PT (9.0-12.0) Seconds INR (0.9-1.1) Sodium (136-145) mmol/L Potassium (3.5-5.1) mmol/L Chloride (98-107) mmol/L Carbon Dioxide (21-32) mmol/L Anion Gap (3-11) BUN (7-18) mg/dl Creatinine (0.6-1.4) mg/dl Est Cr Clr Drug Dosing ml/min Est GFR ( Amer) Est GFR (Non-Af Amer) BUN/Creatinine Ratio (10-20) Glucose (70-99) mg/dl POC Glucose 152 H (70-99) mg/dl Estimat Average Glucose mg/dl Hemoglobin A1c (4.5-5.6) % Calcium (8.5-10.1) mg/dl Troponin I < 0.015 (0-0.045) ng/ml Medications Administered Current Inpatient Medications Acetaminophen (Tylenol) 650 mg PO Q4H PRN PRN Reason: Pain or Fever Stop: 10/09/19 14:56 Al Hydrox/Mg Hydrox/Simethicone (Maalox) 15 ml PO Q4H PRN PRN Reason: Dyspepsia Stop: 10/09/19 14:56 Albuterol (Ventolin Hfa) 2 puffs INH QID PRN PRN Reason: Shortness Of Breath Or Wheezing Stop: 10/09/19 14:56 Amiodarone HCl (C[facility]arone) [facility] Stop: 10/10/19 08:59 Last Admin: 09/10/19 09:11 Dose: 200 mg Documented by: Clopidogrel Bisulfate (Plavix) 75 mg PO QAM [facility] Stop: 10/10/19 08:59 Last Admin: 09/10/19 09:10 Dose: 75 mg Documented by: Dextrose (Dextrose 50%) 25 - 50 ml IV UD PRN; Protocol PRN Reason: Hypoglycemia Protocol Stop: 10/09/19 14:56 Escitalopram Oxalate (Lexapro Tab) 10 mg PO DAILY [facility] Stop: 10/10/19 08:59 Last Admin: 09/10/19 09:10 Dose: 10 mg Documented by: Fluticasone/Vilanterol (Breo Ellipta 200/25 Mcg Inh) 1 puffs INH DAILY [facility] Stop: 10/10/19 08:59 Last Admin: 09/10/19 09:13 Dose: 1 puffs Documented by: Gabapentin (Neurontin) 300 mg PO [facility] Stop: 10/09/19 20:59 Last Admin: 09/09/19 19:49 Dose: 300 mg Documented by: Glucagon (Glucagen) 1 mg SQ UD PRN; Protocol PRN Reason: Hypoglycemia Protocol Stop: 10/09/19 14:56 Glucose (Dex4 Glucose) 4 - 8 tabs PO UD PRN; Protocol PRN Reason: Hypoglycemia Protocol Stop: 10/09/19 14:56 Glucose (Glucose 40%) 15 - 30 gm PO UD PRN; Protocol PRN Reason: Hypoglycemia Protocol Stop: 10/09/19 14:56 Hydrocortisone (Cortef) 20 [facility] Stop: 10/10/19 08:59 Last Admin: 09/10/19 09:11 Dose: 20 mg Documented by: Hydrocortisone (Cortef) 10 mg PO [facility] Stop: 10/09/19 20:59 Last Admin: 09/09/19 19:50 Dose: 10 mg Documented by: Insulin Aspart (Novolog Flexpen) 0 units SC [facility] Stop: 10/09/19 16:29 Last Admin: 09/10/19 17:14 Dose: 6 units Documented by: Insulin Glargine (Lantus Solostar Pen) 0 units SC [facility]; Protocol Stop: 10/09/19 20:59 Last Admin: 09/09/19 21:09 Dose: 10 units Documented by: [facility]) [facility]: 10/10/19 06:29 Last Admin: 09/10/19 05:09 Dose: 75 mcg Documented by: Metoprolol Succinate (Toprol Xl) 25 mg PO [facility] Stop: 10/10/19 08:59 Last Admin: 09/10/19 09:10 Dose: 25 mg Documented by: Miscellaneous (Carbohydrates For Hypoglycemia) 15 - 30 gm PO UD PRN PRN Reason: Hypoglycemia Protocol Stop: 10/09/19 14:56 Miscellaneous (Order Awaiting Action) 1 ea N/A [facility] Stop: 10/09/19 15:59 Last Admin: 09/10/19 17:05 Dose: Not Given Documented by: Ondansetron HCl (Zofran) 4 mg IV Q6H PRN PRN Reason: Nausea Stop: 10/09/19 14:56 Pantoprazole Sodium (Protonix) 40 mg PO [facility] Stop: 10/10/19 08:59 Last Admin: 09/10/19 09:10 Dose: 40 mg Documented by: Polyethylene Glycol (Miralax Powder Packet) 17 gm PO DAILY PRN PRN Reason: Constipation Stop: 10/09/19 14:56 Pravastatin Sodium (Pravachol) 40 mg PO [facility] Stop: 10/09/19 20:59 Last Admin: 09/09/19 19:49 Dose: 40 mg Documented by: Spironolactone (Aldactone) 12.5 mg PO MoWeFr@0900 [facility] Stop: 10/10/19 08:59 Last Admin: 09/10/19 09:10 Dose: 12.5 mg Documented by: Torsemide (Demadex) 10 mg PO [facility] Stop: 10/10/19 08:59 Last Admin: 09/10/19 09:10 Dose: 10 mg Documented by: Warfarin Sodium (Coumadin) 2.5 mg PO MoWeFrSa@1600 [facility] Stop: 10/10/19 15:59 Last Admin: 09/10/19 17:05 Dose: 2.5 mg Documented by: Warfarin Sodium (Coumadin) 1.25 mg PO SuTuTh@1600 [facility] Stop: 10/09/19 15:59 Last Admin: 09/09/19 17:15 Dose: 1.25 mg Documented by:
[2019-09-10] MEDS: INSULIN GLARGINE SOLOSTAR 100 UNITS/ML 3 ML PEN SC SCH (21:28)
[2019-09-10] MEDS: PRAVASTATIN SOD 40 MG TAB PO SCH (21:28)
[2019-09-10] MEDS: GABAPENTIN 300 MG CAP PO SCH (21:28)
[2019-09-11] MEDS: ZAFIRLUKAST 20 MG SCH ×2 (00:38→08:02)
[2019-09-11] MEDS: LEVOTHYROXINE SODIUM 75 MCG TABLET PO SCH (06:00)
[2019-09-11] MEDS: FLUTICASONE/VILANTEROL 200/25MCG 14 PUFFS/INHALER INH SCH (08:02)
[2019-09-11] MEDS: METOPROLOL SUCC 25MG EXT REL TAB PO SCH (08:03)
[2019-09-11] MEDS: PANTOprazole 40 MG TAB PO SCH (08:03)
[2019-09-11] MEDS: AMIODARONE 200 MG TAB PO SCH (08:03)
[2019-09-11] MEDS: TORSEMIDE 10 MG TAB PO SCH (08:03)
[2019-09-11] MEDS: HYDROCORTISONE 10 MG TAB PO SCH (08:03)
[2019-09-11] MEDS: ESCITALOPRAM OXALATE 10 MG TAB PO SCH (08:03)
[2019-09-11] MEDS: CLOPIDOGREL BISULFATE 75 MG TAB PO SCH (08:03)
[2019-09-11] MEDS: INSULIN ASPART 100 UNITS/ML 3 ML PEN SC SCH ×2 (08:04→12:04)
[2019-09-11 08:18] LABS: BUN Creatinine Ratio 17.8 (10-20); Calcium 8.4 mg/dl (8.5-10.1); Creatinine Clr Calc Pharmacy 54.3 ml/min; Est GFR (African American) 64.7; Est GFR (Non-African American) 55.8; Magnesium 2.1 mg/dl (1.8-2.4); Potassium 3.9 mmol/L (3.5-5.1)
[2019-09-11 08:21] LABS: Phosphorus 3.4 mg/dl (2.5-4.9)
--- NOTE | 2019-09-11 08:25 | Cardiology Progress Note ---
Date of Service September 11, 2019 Assessment & Plan (1) Syncope: (2) CKD (chronic kidney disease): (3) Paroxysmal A-fib: (4) Heart failure with reduced ejection fraction due to cardiomyopathy: Patient has had no recurrent syncope since admission. Symptoms are suggestive of orthostatic hypotension's secondary to dehydration. His creatinine improved with IV fluids. His echo reveals stable findings. No arrhythmias on telemetry and his pacemaker device is functioning appropriately. Stable cardiac symptoms to be discharged today. He has an appointment in approximately 1 month as previously scheduled with Dr. Alcantar. He will keep this appointment. He should be discharged on his usual cardiac medications. he was instructed to monitor his fluid intake and maintain hydration. Supervising Physician Co-Signing Physician Notes I have seen and examined the patient. I have reviewed the medical record and discussed the case with Ada Curiel. The patient has a follow-up appointment with Dr. Coburn which he will keep. Subjective Patient resting in bed comfortably. He denies recurrent syncope or near syncope since admission. No lightheadedness or dizziness. Blood pressure well controlled. No recurrent orthostasis. No chest pain or unusual shortness of breath. Review of Systems Review of Systems: All systems reviewed & are unremarkable except as noted in HPI & below Physical Exam Constitutional: WD/WN, vitals as above + obese; no acute distress Neck: normal visual inspection Respiratory: normal respiratory effort, lungs clear to auscultation Cardiovascular: RRR, no murmur, no edema Gastrointestinal (Abdomen): normal bowel sounds, soft, nontender, no hepatosplenomegaly Musculoskeletal: no cyanosis or clubbing, extremities motor strength 5/5 Neurologic: PERRL, EOMI, accommodation nl, no face palsy, no dysarthria Psychiatric: A+Ox3, euthymic affect Results & Data Vital Signs (Past 12 Hours) Vital Signs Temp Pulse Pulse Resp BP Pulse Ox 09/11/19 07:24 61 09/11/19 07:07 36.4 C L 60 18 121/58 L 93 09/11/19 03:07 36.5 C 61 16 122/58 L 95 09/11/19 01:39 82 09/10/19 23:20 36.7 C 87 16 138/78 97 Laboratory Results 09/11/19 09/11/19 09/10/19 Range/Units 07:35 07:34 20:20 Sodium 138 (136-145) mmol/L Potassium 3.9 (3.5-5.1) mmol/L Chloride 108 H (98-107) mmol/L Carbon Dioxide 24 (21-32) mmol/L Anion Gap 6.0 (3-11) BUN 22 H (7-18) mg/dl Creatinine 1.21 (0.6-1.4) mg/dl Est Cr Clr Drug Dosing 54.3 ml/min Est GFR ( Amer) 64.7 Est GFR (Non-Af Amer) 55.8 BUN/Creatinine Ratio 17.8 (10-20) Glucose 134 H (70-99) mg/dl POC Glucose 146 H 150 H (70-99) mg/dl Estimat Average Glucose mg/dl Hemoglobin A1c (4.5-5.6) % Calcium 8.4 L (8.5-10.1) mg/dl Phosphorus 3.4 (2.5-4.9) mg/dl Magnesium 2.1 (1.8-2.4) mg/dl 09/10/19 09/10/19 09/10/19 Range/Units 16:56 11:47 06:56 Sodium (136-145) mmol/L Potassium (3.5-5.1) mmol/L Chloride (98-107) mmol/L Carbon Dioxide (21-32) mmol/L Anion Gap (3-11) BUN (7-18) mg/dl Creatinine (0.6-1.4) mg/dl Est Cr Clr Drug Dosing ml/min Est GFR ( Amer) Est GFR (Non-Af Amer) BUN/Creatinine Ratio (10-20) Glucose (70-99) mg/dl POC Glucose 164 H 187 H (70-99) mg/dl Estimat Average Glucose 203 mg/dl Hemoglobin A1c 8.7 H (4.5-5.6) % Calcium (8.5-10.1) mg/dl Phosphorus (2.5-4.9) mg/dl Magnesium (1.8-2.4) mg/dl Diagnostic Findings Telemetry reviewed: Normal sinus rhythm with intermittent pacing. Repeat EKG reviewed from this morning Atrial-paced rhythm with prolonged AV conduction Left axis deviation Right bundle branch block Minimal voltage criteria for LVH, may be normal variant ( R in aVL ) Abnormal ECG When compared with ECG of 10-SEP-2019 07:03, No significant change was found 2D echocardiogram report reviewed dated 09/10/2019: Moderate concentric LVH. Ejection fraction 40 to 45%. RV systolic function is normal. Left atrium is moderately dilated. Right atrium is mildly dilated. Mild MR. Medications Administered Current Inpatient Medications Acetaminophen (Tylenol) 650 mg PO Q4H PRN PRN Reason: Pain or Fever Stop: 10/09/19 14:56 Al Hydrox/Mg Hydrox/Simethicone (Maalox) 15 ml PO Q4H PRN PRN Reason: Dyspepsia Stop: 10/09/19 14:56 Albuterol (Ventolin Hfa) 2 puffs INH QID PRN PRN Reason: Shortness Of Breath Or Wheezing Stop: 10/09/19 14:56 Amiodarone HCl (Cordarone) 200 mg PO QAM [facility] Stop: 10/10/19 08:59 Last Admin: 09/11/19 08:03 Dose: 200 mg Documented by: Clopidogrel Bisulfate (Plavix) 75 mg PO QAM [facility] Stop: 10/10/19 08:59 Last Admin: 09/11/19 08:03 Dose: 75 mg Documented by: Dextrose (Dextrose 50%) 25 - 50 ml IV UD PRN; Protocol PRN Reason: Hypoglycemia Protocol Stop: 10/09/19 14:56 Escitalopram Oxalate (Lexapro Tab) 10 mg PO DAILY [facility] Stop: 10/10/19 08:59 Last Admin: 09/11/19 08:03 Dose: 10 mg Documented by: Fluticasone/Vilanterol (Breo Ellipta 200/25 Mcg Inh) 1 puffs INH DAILY [facility] Stop: 10/10/19 08:59 Last Admin: 09/11/19 08:02 Dose: 1 puffs Documented by: Gabapentin (Neurontin) 300 mg PO HS [facility] Stop: 10/09/19 20:59 Last Admin: 09/10/19 21:28 Dose: 300 mg Documented by: Glucagon (Glucagen) 1 mg SQ UD PRN; Protocol PRN Reason: Hypoglycemia Protocol Stop: 10/09/19 14:56 Glucose (Dex4 Glucose) 4 - 8 tabs PO UD PRN; Protocol PRN Reason: Hypoglycemia Protocol Stop: 10/09/19 14:56 Glucose (Glucose 40%) 15 - 30 gm PO UD PRN; Protocol PRN Reason: Hypoglycemia Protocol Stop: 10/09/19 14:56 Hydrocortisone (Cortef) 20 mg PO [facility] Stop: 10/10/19 08:59 Last Admin: 09/11/19 08:03 Dose: 20 mg Documented by: Hydrocortisone (Cortef) 10 mg PO [facility] Stop: 10/09/19 20:59 Last Admin: 09/10/19 21:28 Dose: 10 mg Documented by: Insulin Aspart (Novolog Flexpen) 0 units SC [facility] Stop: 10/09/19 16:29 Last Admin: 09/11/19 08:04 Dose: 3 units Documented by: Insulin Glargine (Lantus Solostar Pen) 0 units SC [facility]; Protocol Stop: 10/09/19 20:59 Last Admin: 09/10/19 21:28 Dose: 10 units Documented by: Levothyroxine Sodium (Synthroid) [facility] Stop: 10/10/19 06:29 Last Admin: 09/11/19 06:00 Dose: 75 mcg Documented by: Metoprolol Succinate (Toprol Xl) 25 mg PO [facility] Stop: 10/10/19 08:59 Last Admin: 09/11/19 08:03 Dose: 25 mg Documented by: Miscellaneous (Carbohydrates For Hypoglycemia) 15 - 30 gm PO UD PRN PRN Reason: Hypoglycemia Protocol Stop: 10/09/19 14:56 Miscellaneous (Order Awaiting Action) 1 ea N/A [facility] Stop: 10/09/19 15:59 Last Admin: 09/11/19 08:02 Dose: Not Given Documented by: Ondansetron HCl (Zofran) 4 mg IV Q6H PRN PRN Reason: Nausea Stop: 10/09/19 14:56 Pantoprazole Sodium (Protonix) 40 mg PO [facility] Stop: 10/10/19 08:59 Last Admin: 09/11/19 08:03 Dose: 40 mg Documented by: Polyethylene Glycol (Miralax Powder Packet) 17 gm PO DAILY PRN PRN Reason: Constipation Stop: 10/09/19 14:56 Pravastatin Sodium (Pravachol) 40 mg PO [facility] Stop: 10/09/19 20:59 Last Admin: 09/10/19 21:28 Dose: 40 mg Documented by: Spironolactone (Aldactone) 12.5 mg PO MoWeFr@0900 [facility] Stop: 10/10/19 08:59 Last Admin: 09/10/19 09:10 Dose: 12.5 mg Documented by: Torsemide (Demadex) 10 mg PO QAM [facility] Stop: 10/10/19 08:59 Last Admin: 09/11/19 08:03 Dose: 10 mg Documented by: Warfarin Sodium (Coumadin) 2.5 mg PO MoWeFrSa@1600 [facility] Stop: 10/10/19 15:59 Last Admin: 09/10/19 17:05 Dose: 2.5 mg Documented by: Warfarin Sodium (Coumadin) 1.25 mg PO SuTuTh@1600 [facility] Stop: 10/09/19 15:59 Last Admin: 09/09/19 17:15 Dose: 1.25 mg Documented by: (1) CKD (chronic kidney disease) Chronic kidney disease stage: stage 3 (moderate) Qualified Code(s): N18.3 - Chronic kidney disease, stage 3 (moderate) (2) Syncope Syncope type: unspecified Qualified Code(s): R55 - Syncope and collapse
--- NOTE | 2019-09-11 10:20 | Hospitalist Progress Note ---
Date of Service September 11, 2019 Assessment & Plan (1) Syncope: This is an 79-year-old male who has significant past medical history of CAD with ischemic cardiomyopathy, heart failure with reduced ejection fraction, SSS status post pacemaker, HTN, HLD, paroxysmal atrial fibrillation anticoagulated on warfarin, insulin-dependent T2DM, adrenal insufficiency, CKD stage III, PMR, hypothyroidism, diabetic neuropathy and nephropathy, depression with anxiety, BPH, vitamin D deficiency and GERD who presents to ED after sustaining a syncopal episode prior to arrival. According to ED provider after syncopal episode EMS was called. Patient's blood glucose was within normal limits. He was not hypoglycemic. He was found to be tachycardic upon arrival and was given a 250 mL bolus of IVF with improvement of his heart rate. In ED he has remained hemodynamically stable and is otherwise felt well and much improved. Lab work notable for WBC 10.39, H&H 12.8 and 40.7, platelet 370, INR 2.6, BUN 24, creatinine 1.46, phos 2.8, mag 2.2, troponin WNL, TSH 5.59, free T4 1.16. He elicits he took his morning levothyroxine, but otherwise not take a.m. meds on day of admission, including amiodarone or hydrocortisone. admit to telemetry -monitor for arrhythmia CT head ordered -revealed no acute intracranial abnormality, chronic pansinusitis noted -patient is without URI symptoms Echocardiogram ordered, shows moderate concentric LVH. EF 40 to 45%. RV systolic function is normal. Left atrium is moderately dilated. Right atrium is mildly dilated. There is mild mitral regurg. Troponins x3 -negative Pacemaker interrogated in ED Cardiology consulted -reviewed history, telemetry, echo Recommend to discharge home on the same medications and keep well-hydrated. Patient should keep his appointment with his patch setter. EEG ordered -due to patient reporting confusion post syncopal episode rule out seizure, EEG done this morning, negative Orthostatic blood pressures positive this morning Held torsemide on admission Recommend to monitor patient's weight daily. Patient should discuss his weight with his primary care doctor and his patch setter. Neurochecks (2) Acute worsening of stage 3 chronic kidney disease: Baseline creatinine 1.1 BUN/creatinine 44 and 1.46 He did receive 250 IVF in route Held torsemide on admission Creatinine now improved to 1.2 (3) Heart failure with reduced ejection fraction due to cardiomyopathy: Patient with ischemic cardiomyopathy last echocardiogram 01/2019 revealed EF 40 to 45% Continue metoprolol and resume torsemide and Aldactone in a.m. Previously had been on lisinopril, but discontinued secondary to symptomatic hypotension Monitor daily weights, strict I's and O's baseline weight [phone] Heart healthy, low-sodium diet pt appears euvolemic and renal fxn mildly elevated held torsemide on admission, resume in a.m. cardiology consulted (4) Type 2 diabetes mellitus: Last A1c 7.8 11/2018 Obtain A1c in a.m. Lantus/NovoLog per protocol (5) Coronary artery disease: History of multivessel coronary artery disease discovered via cardiac cath 11/2018, not amenable to PCI and patient not a candidate for CABG Continue medical management troponins x3 - negative Cardiology consulted Continue metoprolol, Plavix, warfarin (6) Paroxysmal A-fib: Continue amiodarone, metoprolol and warfarin for stroke prophylaxis INR is therapeutic Monitor QTC (7) Mural thrombus of heart: Discovered via echocardiogram 11/2018 Patient anticoagulated on warfarin (8) Hypertension: Blood pressure stable in ED Obtain orthostatic blood pressures Continue metoprolol, Aldactone and torsemide in a.m. (9) Adrenal insufficiency: Continue hydrocortisone (10) Sick sinus syndrome: s/p PPM ekg reviewed pacer interrogated in ED per provider by [employer], no significant abnormalities (11) Tena's thyroiditis: Continue levothyroxine TSH 5.59, free T4 1.16 (12) Hyperlipidemia: Continue statin (13) Asthma: No acute exacerbation No current use of oxygen at bedtime Continue Symbicort, as needed albuterol, zafirlukast (14) Diabetic neuropathy: Continue gabapentin (15) Depression: Mood stable Continue citalopram, QTC 486 MS (16) GERD (gastroesophageal reflux disease): Continue omeprazole (17) DVT prophylaxis: Continue warfarin, INR 2.6 Home regimen of 1.25 mg Tuesday, 2.5 mg all other days Disposition: Discharge home Follow-up: PCP Dr. Quintero upon discharge Admission and Anticipated Discharge Date Admission Date: September 09, 2019 Subjective Diuretics were held on admission, creatinine improved. Orthostatic vital signs yesterday AM positive, negative in the afternoon after repeat. EEG negative. Echo obtained, shows moderate concentric LVH, EF 40 to 45%, RV systolic function is normal, LA is moderately dilated, RA is mildly dilated, mild mitral regurg. Patient is currently lying in bed, in no acute distress. Denies any dizziness, lightheadedness, chest pain, shortness of breath, also denies any fevers, chills, headache, abdominal pain nausea or vomiting. Reviewed by cardiology, okay to discharge home. Patient should follow-up with his patch setter as already scheduled. No medication changes recommended at this time. Review of Systems Review of Systems: All systems reviewed & are unremarkable except as noted in HPI & below Constitutional: no fever and no chills Respiratory: no cough and no dyspnea Cardiovascular: no chest pain, no palpitations and no edema Gastrointestinal: no abdominal pain, no nausea and no vomiting Physical Exam Physical Exam: Constitutional: Elderly, male, WD/WN, vitals as above, NAD, sitting up in bed, pleasant, conversing easily Head: Normocephalic, Atraumatic Eyes: R eye pterygium, +blind L eye, anicteric sclerae ENMT: external ear and nose normal, oropharynx normal Neck: trachea midline, no thyromegaly normal visual inspection Respiratory: normal respiratory effort, lungs clear to auscultation, no wheeze, rales, rhonchi. Normal insp/exp effort, no accessory muscle use Cardiovascular: RRR, soft 1/6 LOR[place] noted RUSB, no edema Vessels: no JVD or carotid bruit Chest: normal inspection of chest Abdomen: normal bowel sounds, soft, nontender, no hepatosplenomegaly Musculoskeletal: no cyanosis or clubbing, extremities motor strength 5/5 Skin: no rashes, warm and dry moderate turgor Neurologic: PERRL, EOMI, accommodation nl, no face palsy, no dysarthria CN's II-XI intact bilaterally and moves all extremities Psychiatric: A+Ox3 to basics, euthymic affect Results & Data Results & Data ([facility]) Vital Signs (Past 12 Hours) Vital Signs Temp Pulse Pulse Resp BP Pulse Ox 09/11/19 07:24 61 09/11/19 07:07 36.4 C L 60 18 121/58 L 93 09/11/19 03:07 36.5 C 61 16 122/58 L 95 06/23/20 01:39 82 09/10/19 23:20 36.7 C 87 16 138/78 97 Laboratory Results 09/11/19 09/11/19 09/10/19 Range/Units 07:35 07:34 20:20 Sodium 138 (136-145) mmol/L Potassium 3.9 (3.5-5.1) mmol/L Chloride 108 H (98-107) mmol/L Carbon Dioxide 24 (21-32) mmol/L Anion Gap 6.0 (3-11) BUN 22 H (7-18) mg/dl Creatinine 1.21 (0.6-1.4) mg/dl Est Cr Clr Drug Dosing 54.3 ml/min Est GFR ( Amer) 64.7 Est GFR (Non-Af Amer) 55.8 BUN/Creatinine Ratio 17.8 (10-20) Glucose 134 H (70-99) mg/dl POC Glucose 146 H 150 H (70-99) mg/dl Calcium 8.4 L (8.5-10.1) mg/dl Phosphorus 3.4 (2.5-4.9) mg/dl Magnesium 2.1 (1.8-2.4) mg/dl 09/10/19 09/10/19 Range/Units 16:56 11:47 Sodium (136-145) mmol/L Potassium (3.5-5.1) mmol/L Chloride (98-107) mmol/L Carbon Dioxide (21-32) mmol/L Anion Gap (3-11) BUN (7-18) mg/dl Creatinine (0.6-1.4) mg/dl Est Cr Clr Drug Dosing ml/min Est GFR ( Amer) Est GFR (Non-Af Amer) BUN/Creatinine Ratio (10-20) Glucose (70-99) mg/dl POC Glucose 164 H 187 H (70-99) mg/dl Calcium (8.5-10.1) mg/dl Phosphorus (2.5-4.9) mg/dl Magnesium (1.8-2.4) mg/dl Medications Administered Current Inpatient Medications Acetaminophen (Tylenol) 650 mg PO Q4H PRN PRN Reason: Pain or Fever Stop: 10/09/19 14:56 Al Hydrox/Mg Hydrox/Simethicone (Maalox) 15 ml PO Q4H PRN PRN Reason: Dyspepsia Stop: 10/09/19 14:56 Albuterol (Ventolin Hfa) 2 puffs INH QID PRN PRN Reason: Shortness Of Breath Or Wheezing Stop: 10/09/19 14:56 Amiodarone HCl (Cordarone) 200 mg PO QAM [facility] Stop: 10/10/19 08:59 Last Admin: 09/11/19 08:03 Dose: 200 mg Documented by: Clopidogrel Bisulfate (Plavix) 75 mg PO QAM [facility] Stop: 10/10/19 08:59 Last Admin: 09/11/19 08:03 Dose: 75 mg Documented by: Dextrose (Dextrose 50%) 25 - 50 ml IV UD PRN; Protocol PRN Reason: Hypoglycemia Protocol Stop: 10/09/19 14:56 Escitalopram Oxalate (Lexapro Tab) 10 mg PO DAILY [facility] Stop: 10/10/19 08:59 Last Admin: 09/11/19 08:03 Dose: 10 mg Documented by: Fluticasone/Vilanterol (Breo Ellipta 200/25 Mcg Inh) 1 puffs INH DAILY [facility] Stop: 10/10/19 08:59 Last Admin: 09/11/19 08:02 Dose: 1 puffs Documented by: Gabapentin (Neurontin) 300 mg PO [facility] Stop: 10/09/19 20:59 Last Admin: 09/10/19 21:28 Dose: 300 mg Documented by: Glucagon (Glucagen) 1 mg SQ UD PRN; Protocol PRN Reason: Hypoglycemia Protocol Stop: 10/09/19 14:56 Glucose (Dex4 Glucose) 4 - 8 tabs PO UD PRN; Protocol PRN Reason: Hypoglycemia Protocol Stop: 10/09/19 14:56 Glucose (Glucose 40%) 15 - 30 gm PO UD PRN; Protocol PRN Reason: Hypoglycemia Protocol Stop: 10/09/19 14:56 [facility]: 10/10/19 08:59 Last Admin: 09/11/19 08:03 Dose: 20 mg Documented by: Hydrocortisone (Cortef) 10 mg PO [facility] Stop: 10/09/19 20:59 Last Admin: 09/10/19 21:28 Dose: 10 mg Documented by: Insulin Aspart (Novolog Flexpen) 0 units SC [facility] Stop: 10/09/19 16:29 Last Admin: 09/11/19 08:04 Dose: 3 units Documented by: Insulin Glargine (Lantus Solostar Pen) 0 units SC [facility]; Protocol Stop: 10/09/19 20:59 Last Admin: 09/10/19 21:28 Dose: 10 units Documented by: [facility]othy[facility]ine [facility]) [facility] Stop: 10/10/19 06:29 Last Admin: 09/11/19 06:00 Dose: 75 mcg Documented by: Metoprolol Succinate ([facility] Xl) [facility]: 10/10/19 08:59 Last Admin: 09/11/19 08:03 Dose: 25 mg Documented by: Miscellaneous (Carbohydrates For Hypoglycemia) 15 - 30 gm PO UD PRN PRN Reason: Hypoglycemia Protocol Stop: 10/09/19 14:56 Miscellaneous (Order Awaiting Action) 1 ea N/A [facility] Stop: 10/09/19 15:59 Last Admin: 09/11/19 08:02 Dose: Not Given Documented by: Ondansetron HCl (Zofran) 4 mg IV Q6H PRN PRN Reason: Nausea Stop: 10/09/19 14:56 Pantoprazole Sodium (Protonix) 40 mg PO [facility] Stop: 10/10/19 08:59 Last Admin: 09/11/19 08:03 Dose: 40 mg Documented by: Polyethylene Glycol (Miralax Powder Packet) 17 gm PO DAILY PRN PRN Reason: Constipation Stop: 10/09/19 14:56 Pravastatin Sodium (Pravachol) 40 mg PO [facility] Stop: 10/09/19 20:59 Last Admin: 09/10/19 21:28 Dose: 40 mg Documented by: Spironolactone (Aldactone) 12.5 mg PO [id number] [facility] Stop: 10/10/19 08:59 Last Admin: 09/10/19 09:10 Dose: 12.5 mg Documented by: [facility]semide ([facility]x) [facility]: 10/10/19 08:59 Last Admin: 09/11/19 08:03 Dose: 10 mg Documented by: Warfarin Sodium (Coumadin) 2.5 mg PO [email or web address] [facility] Stop: 10/10/19 15:59 Last Admin: 09/10/19 17:05 Dose: 2.5 mg Documented by: Warfarin Sodium (Coumadin) 1.25 mg PO [email or web address] [facility] Stop: 10/09/19 15:59 Last Admin: 09/09/19 17:15 Dose: 1.25 mg Documented by:
--- NOTE | 2019-09-11 15:11 | Discharge Summary ---
Date of Service September 11, 2019 Admission HPI Per Admitting Provider This is an 79-year-old male who has significant past medical history of CAD with ischemic cardiomyopathy, heart failure with reduced ejection fraction, SSS status post pacemaker, HTN, HLD, paroxysmal atrial fibrillation anticoagulated on warfarin, insulin-dependent T2DM, adrenal insufficiency, CKD stage III, PMR, hypothyroidism, diabetic neuropathy and nephropathy, depression with anxiety, BPH, vitamin D deficiency and GERD who presents to ED after sustaining a syncopal episode prior to arrival. He states he was standing up fixing his breakfast cereal when he had a syncopal episode. This was witnessed by his da zainab. There was no loss of bowel or bladder habits, no apparent shaking of extremities or tremors, no presyncope symptoms associated including nausea diaphoresis lightheadedness or dizziness. He did have episode of confusion after syncope and still feels slightly confused. He denies any recent illness, fever, chest pain, shortness of breath at rest, palpitations, cough, nausea, vomiting, diarrhea, abdominal pain, dysuria, increased urgency or frequency with urination, hematuria, melena, hematochezia. He states over the past few days he has felt, "not right." He is unable to pinpoint how he was feeling. His appetite has been normal. He feels he has been drinking adequate fluids. He denies any lower extremity swelling, orthopnea or PND. He does follow with [facility] cardiology. [facility] and underwent Reds vest evaluation on 09/04 which was within limits. He had mild weight gain 295 pounds. He currently lives with his daughter and son-in-law. He ambulates with a cane at baseline. Of significance he was hospitalized at [facility] 11/2018 secondary to acute respiratory failure with congestive heart failure and congestive hepatopathy. Echo at that time revealed severe left ventricular systolic dysfunction with an EF of 20 to 24% and apical left ventricular thrombus. He underwent cardiac catheterization and was found to have multivessel coronary artery disease. He was not a candidate for PCI due to coronary anatomy or CABG secondary to comorbidities. He has since been treated medically and repeat echocardiogram on 01/2019 revealed mild improvement in EF to 39%. He does follow closely with [facility] cardiology. In March 2019 his lisinopril was held and his torsemide was decreased from 20 mg to 10 mg secondary to symptomatic hypotension. He does elicit that he has had episodes of syncope in the past 1 approximately 2 weeks ago and the other this past fall. He does have a dual-chamber pacemaker in place and is undergone proper i nterrogations. Patient was interrogated in ED per ED provider which was generally unremarkable. According to ED provider after syncopal episode EMS was called. Patient's blood glucose was within normal limits. He was not hypoglycemic. He was found to be tachycardic upon arrival and was given a 250 mL bolus of IVF with improvement of his heart rate. In ED he has remained hemodynamically stable and is otherwise felt well and much improved. Lab work notable for WBC 10.39, H&H 12.8 and 40.7, platelet 370, INR 2.6, BUN 24, creatinine 1.46, phos 2.8, mag 2.2, troponin WNL, TSH 5.59, free T4 1.16. He elicits he took his morning levothyroxine, but otherwise not take his a.m. meds including amiodarone or hydrocortisone. Admission Exam Per Admitting Provider Constitutional: Elderly, male, WD/WN, vitals as above, NAD, sitting up in bed, pleasant, conversing easily Head: Normocephalic, Atraumatic Eyes: R eye pterygium, +blind L eye, anicteric sclerae ENMT: external ear and nose normal, oropharynx normal Neck: trachea midline, no thyromegaly normal visual inspection Respiratory: normal respiratory effort, lungs clear to auscultation, no wheeze, rales, rhonchi. Normal insp/exp effort, no accessory muscle use Cardiovascular: RRR, soft 1/6 LORETTA noted RUSB, no edema Vessels: no JVD or carotid bruit Chest: normal inspection of chest Abdomen: normal bowel sounds, soft, nontender, no hepatosplenomegaly Musculoskeletal: no cyanosis or clubbing, extremities motor strength 5/5 Skin: no rashes, warm and dry moderate turgor Neurologic: PERRL, EOMI, accommodation nl, no face palsy, no dysarthria CN's II-XI intact bilaterally and moves all extremities Psychiatric: A+Ox3 to basics, euthymic affect Lymphatic: no cervical or axillary lymphadenopathy : deferred Principal Diagnosis Syncope, likely due to orthostatic hypotension (secondary to dehydration) EDA Discharge Exam Constitutional: Elderly, male, WD/WN, vitals as above, NAD, sitting up in bed, pleasant, conversing easily Head: Normocephalic, Atraumatic Eyes: R eye pterygium, +blind L eye, anicteric sclerae ENMT: external ear and nose normal, oropharynx normal Neck: trachea midline, no thyromegaly normal visual inspection Respiratory: normal respiratory effort, lungs clear to auscultation, no wheeze, rales, rhonchi. Normal insp/exp effort, no accessory muscle use Cardiovascular: RRR, soft 1/6 LORETTA noted RUSB, no edema Vessels: no JVD or carotid bruit Chest: normal inspection of chest Abdomen: normal bowel sounds, soft, nontender, no hepatosplenomegaly Musculoskeletal: no cyanosis or clubbing, extremities motor strength 5/5 Skin: no rashes, warm and dry moderate turgor Neurologic: PERRL, EOMI, accommodation nl, no face palsy, no dysarthria CN's II-XI intact bilaterally and moves all extremities Psychiatric: A+Ox3 to basics, euthymic affect Discharge Data Allergies Allergy/AdvReac Type Severity Reaction Status Date / Time aspirin Allergy Unknown DOES NOT Verified 09/09/19 11:41 TAKE D/T ASTHMA citric acid AdvReac Verified 09/09/19 11:41 [From Robina] NSAIDS (Non-Steroidal AdvReac Verified 09/09/19 11:41 Anti-Inflamma sodium bicarbonate AdvReac Verified 09/09/19 11:41 [From Robina] Consultations 09/09/19 12:52 ED Decision to Admit Stat 09/09/19 13:11 Consult Cardiology Routine 09/09/19 14:57 Consult Case Management - Discharge Planning Routine Ordered Studies 09/09/19 13:01 CT head/brain wo con Routine IMPRESSION: 1. There is no hemorrhage, mass effect, or evidence of acute territorial ischemia by CT criteria. 2. Findings of pansinusitis as above. 09/09/19 14:57 US carotid doppler BI Routine IMPRESSION: 1. There is evidence of 50-69% stenosis at the origin of the right internal carotid artery by velocity criteria. 2. There is no sonographic evidence of hemodynamically significant stenosis in the left carotid arterial system. 3. Antegrade flow is shown in the vertebral arteries. Hospital Course (1) Syncope: This is an 79-year-old male who has significant past medical history of CAD with ischemic cardiomyopathy, heart failure with reduced ejection fraction, SSS status post pacemaker, HTN, HLD, paroxysmal atrial fibrillation anticoagulated on warfarin, insulin-dependent T2DM, adrenal insufficiency, CKD stage III, PMR, hypothyroidism, diabetic neuropathy and nephropathy, depression with anxiety, BPH, vitamin D deficiency and GERD who presents to ED after sustaining a syncopal episode prior to arrival. According to ED provider after syncopal episode EMS was called. Patient's blood glucose was within normal limits. He was not hypoglycemic. He was found to be tachycardic upon arrival and was given a 250 mL bolus of IVF with improvement of his heart rate. In ED he has remained hemodynamically stable and is otherwise felt well and much improved. Lab work notable for WBC 10.39, H&H 12.8 and 40.7, platelet 370, INR 2.6, BUN 24, creatinine 1.46, phos 2.8, mag 2.2, troponin WNL, TSH 5.59, free T4 1.16. He elicits he took his morning levothyroxine, but otherwise not take a.m. meds on day of admission, including amiodarone or hydrocortisone. admit to telemetry -monitor for arrhythmia CT head ordered -revealed no acute intracranial abnormality, chronic p ansinusitis noted -patient is without URI symptoms Echocardiogram ordered, shows moderate concentric LVH. EF 40 to 45%. RV systolic function is normal. Left atrium is moderately dilated. Right atrium is mildly dilated. There is mild mitral regurg. Troponins x3 -negative Pacemaker interrogated in ED Cardiology consulted -reviewed history, telemetry, echo Recommend to discharge home on the same medications and keep well-hydrated. Patient should keep his appointment with his power plant technician. EEG ordered -due to patient reporting confusion post syncopal episode rule out seizure, EEG done this morning, negative Orthostatic blood pressures positive this morning Held torsemide on admission Recommend to monitor patient's weight daily. Patient should discuss his weight with his primary care doctor and his power plant technician. Neurochecks (2) Acute worsening of stage 3 chronic kidney disease: Baseline creatinine 1.1 BUN/creatinine 44 and 1.46 He did receive 250 IVF in route Held torsemide on admission Creatinine now improved to 1.2 (3) Heart failure with reduced ejection fraction due to cardiomyopathy: Patient with ischemic cardiomyopathy last echocardiogram 01/2019 revealed EF 40 to 45% Continue metoprolol and resume torsemide and Aldactone in a.m. Previously had been on lisinopril, but discontinued secondary to symptomatic hypotension Monitor daily weights, strict I's and O's baseline weight [phone] Heart healthy, low-sodium diet pt appears euvolemic and renal fxn mildly elevated held torsemide on admission, resume in a.m. cardiology consulted (4) Type 2 diabetes mellitus: Last A1c 7.8 11/2018 Obtain A1c in a.m. Lantus/NovoLog per protocol (5) Coronary artery disease: History of multivessel coronary artery disease discovered via cardiac cath 11/2018, not amenable to PCI and patient not a candidate for CABG Continue medical management troponins x3 - negative Cardiology consulted Continue metoprolol, Plavix, warfarin (6) Paroxysmal A-fib: Continue amiodarone, metoprolol and warfarin for stroke prophylaxis INR is therapeutic Monitor QTC (7) Mural thrombus of heart: Discovered via echocardiogram 11/2018 Patient anticoagulated on warfarin (8) Hypertension: Blood pressure stable in ED Obtain orthostatic blood pressures Continue metoprolol, Aldactone and torsemide in a.m. (9) Adrenal insufficiency: Continue hydrocortisone (10) Sick sinus syndrome: s/p PPM ekg reviewed pacer interrogated in ED per provider by [employer], no significant abnormalities (11) Tena's thyroiditis: Continue levothyroxine TSH 5.59, free T4 1.16 (12) Hyperlipidemia: Continue statin (13) Asthma: No acute exacerbation No current use of oxygen at bedtime Continue Symbicort, as needed albuterol, zafirlukast (14) Diabetic neuropathy: Continue gabapentin (15) Depression: Mood stable Continue citalopram, QTC 486 MS (16) GERD (gastroesophageal reflux disease): Continue omeprazole (17) DVT prophylaxis: Continue warfarin, INR 2.6 Home regimen of 1.25 mg Tuesday, 2.5 mg all other days Disposition: Discharge home Follow-up: PCP Dr. Quintero upon discharge Total Time Total Time Spent Total Time Spent (In Minutes): 35 Total Time Includes: Examination of the Patient, Discharge Planning, Medication Reconciliation and Communication With Other Providers Discharge Plan Discharge Items Patient Disposition: Home - Self-Care Reason For Visit: syncope Discharge Diagnosis: Syncope, likely due to orthostatic hypotension (secondary to dehydration) EDA Activity: Per Instructions section Non-emergency contact: Primary Care Provider and Algorithm Developer Call non-emergency contact if: you have any medication questions and your symptoms worsen Follow-up/Referrals: Steve Quintero MD [Primary Care Provider] - 09/17/19 11:20 am (09/17/2019 11:20 AM Provider Maryellen Hodge, [facility] ) Diet: Carb Consistent or DM2 and Low Sodium (2gm) Addtl Attending Provider Instructions: Follow-up with your primary care doctor on September 16. Follow-up with your power plant technician as already scheduled. Make sure to weigh yourself every morning, and write down those numbers. Review your weight with your primary care doctor and your power plant technician. It is very important to make sure that your weight does not fluctuate/ your fluid level does not fluctuate much. Recommend to keep well-hydrated and discuss further with your healthcare providers if your medications need to be adjusted further. At this moment, cardiology does not think that any medication should be changed, continue to take your medications as prescribed. Pending Studies at Discharge: No Stand-Alone Forms: [employer], Smoking Cessation Medications and DC Order Prescriptions: Continued gabapentin [Neurontin] 300 mg capsule 300 mg PO HS Qty: 90 RF: 3 (DME) OneTouch Ultra Blue Test Strip strip See Dose Instructions .ROUTE .MEDSUPPLY Qty: 200 RF: 5 Lantus Solostar U-100 Insulin 100 unit/mL (3 mL) insulin pen 25 units SQ HS Qty: 15 RF: 5 hydrocortisone 10 mg tablet 10 mg PO HS Qty: 90 RF: 3 pravastatin 40 mg tablet 40 mg PO HS Qty: 90 RF: 3 hydrocortisone 20 mg tablet 20 mg PO QAM Qty: 90 RF: 3 (DME) pen needle, diabetic [BD Mary 2nd Gen Pen Needle] 32 gauge x 5/32" needle See Dose Instructions .ROUTE .MEDSUPPLY Qty: 200 RF: 3 budesonide-formoterol 160-4.5 mcg/actuation HFA aerosol inhaler 2 puff Inhalation BID Qty: 10.2 RF: 5 clopidogrel 75 mg tablet 75 mg PO QAM Qty: 30 RF: 5 metoprolol succinate 25 mg tablet extended release 24 hr 25 mg PO QAM RF: 0 albuterol sulfate 90 mcg/actuation HFA aerosol inhaler 2 puff Inhalation QID PRN (Reason: Shortness Of Breath Or Wheezing) RF: 0 acetaminophen [Tylenol] 325 mg Tablet 325 mg PO Q6H PRN (Reason: Pain) RF: 0 torsemide 20 mg tablet 10 mg PO QAM RF: 0 amiodarone 200 mg tablet 200 mg PO QAM RF: 0 spironolactone 25 mg tablet 12.5 mg PO MOWEFR RF: 0 levothyroxine 75 mcg tablet 75 mcg PO QAM RF: 0 polyethylene glycol 3350 [Miralax] 17 gram Powder In Packet 17 g PO DAILY 30 Days Qty: 30 RF: 2 warfarin 2.5 mg tablet 2.5 mg PO MOWEFRSA RF: 0 zafirlukast 20 mg tablet 20 mg PO BID RF: 0 escitalopram oxalate 10 mg Tablet 10 mg PO DAILY RF: 0 warfarin 2.5 mg Tablet 1.25 mg PO SUTUTH RF: 0 omeprazole 20 mg Capsule,Delayed Release(Dr/Ec) 20 mg PO QAM RF: 0 Discharge Orders: Discharge Order (Routine); Ordered 09/11/19 Ordered By: Emiliano Garcia/Other Patient Handouts: Managing Type 2 Diabetes Admission Data Admit Date/Time: 09/09/19 12:24 Attending Provider: Emiliano Rivera Admit Provider: Tej Zuniga Primary Care Provider: Steve Quintero Other Providers: Tej Zuniga ; Tristen Agrawal
--- NOTE | 2019-09-11 15:53 | Electrocardiogram Report ---
Test Reason : Blood Pressure : / mmHG Vent. Rate : 060 BPM Atrial Rate : 060 BPM P-R Int : 338 ms QRS Dur : 174 ms QT Int : 488 ms P-R-T Axes : 070 -73 066 degrees QTc Int : 488 ms Atrial-paced rhythm with prolonged AV conduction Left axis deviation Right bundle branch block Minimal voltage criteria for LVH, may be normal variant ( R in aVL ) Abnormal ECG When compared with ECG of 10-SEP-2019 07:03, No significant change was found Confirmed by Perico Winston ([id number]) on 09/11/2019 3:53:28 PM Referred By: REFERRED SELF Confirmed By:Perico Winston
[2019-09-11] MEDS: WARFARIN SOD 1.25 MG TAB PO SCH (16:17)
== END 2019-09-11 16:49 | disposition home or self-care (01) ==
LOC: ED 10:35 → 2N 10:35 → SUATTDRO 12:24 → 2N 14:15

== ENCOUNTER 2019-09-15 11:53 | Inpatient (IN) ==
--- NOTE | 2019-09-15 12:12 | Emergency Department Note ---
History of Present Illness General Chief complaint: Fever Stated complaint: FEVER 100.4, SOB,BODY ACHES, DIS FROM HOSP ON Time Seen by Provider: 09/15/19 12:07 History of Present Illness This is an 79-year-old male who has significant past medical history of CAD with ischemic cardiomyopathy, heart failure with reduced ejection fraction, SSS status post pacemaker, HTN, HLD, paroxysmal atrial fibrillation anticoagulated on warfarin, insulin-dependent T2DM, adrenal insufficiency, CKD stage III, PMR, hypothyroidism, diabetic neuropathy and nephropathy, depression with anxiety, BPH, vitamin D deficiency and GERD who presents to ED with a chief complaint of a fever. The patient was sent to the ED for evaluation of this. The patient was discharged from the hospital 4 days ago after being admitted for syncope. The patient reports a runny nose, slight cough that is nonproductive, little trouble breathing as well as a little diarrhea. He does not recall being on antibiotics recently. The patient denies a headache, chest pains, abdominal pains, nausea or vomiting. He does report some frequency with urination. The patient is somewhat of a poor historian but does answer questions appropriately. Home Medications Home Medications Medication Instructions Recorded Confirmed Type albuterol sulfate 2 puff INHALATION QID PRN 01/30/18 09/09/19 History metoprolol succinate 25 mg PO QAM 01/30/18 09/09/19 History omeprazole 20 mg PO QAM 07/25/18 09/09/19 History gabapentin 300 mg capsule 300 mg PO HS #90 cap 11/10/18 09/09/19 Rx acetaminophen [Tylenol] 325 mg PO Q6H PRN 11/23/18 09/09/19 History blood sugar diagnostic #200 ea 12/04/18 12/25/18 Rx hydrocortisone 10 mg tablet 10 mg PO HS #90 tab 01/17/19 09/09/19 Rx insulin glargine 100 unit/mL (3 25 units SQ HS #15 ml 01/17/19 09/09/19 Rx mL) subcutaneous pen amiodarone 200 mg PO QAM 02/20/19 09/09/19 History levothyroxine 75 mcg PO QAM 02/20/19 09/09/19 History spironolactone 12.5 mg PO MOWEFR 02/20/19 09/09/19 History torsemide 10 mg PO QAM 02/20/19 09/09/19 History polyethylene glycol 3350 [Miralax] 17 g PO DAILY 30 Days #30 ea 02/24/19 09/09/19 Rx pravastatin 40 mg tablet 40 mg PO HS #90 tab 05/07/19 09/09/19 Rx hydrocortisone 20 mg tablet 20 mg PO QAM #90 tab 05/22/19 09/09/19 Rx pen needle, diabetic 32 gauge x #200 ea 05/28/19 Rx 5/32" budesonide-formoterol HFA 160 2 puff INHALATION BID #10.2 gm 05/31/19 09/09/19 Rx mcg-4.5 mcg/actuation aerosol inhaler clopidogrel 75 mg tablet 75 mg PO QAM #30 tab 08/01/19 09/09/19 Rx escitalopram oxalate 10 mg PO DAILY 09/09/19 09/09/19 History warfarin 1.25 mg PO SUTUTH 09/09/19 09/09/19 History warfarin 2.5 mg PO MOWEFRSA 09/09/19 09/09/19 History zafirlukast 20 mg PO BID 09/09/19 09/09/19 History Allergies Allergy/AdvReac Type Severity Reaction Status Date / Time aspirin Allergy Unknown DOES NOT Verified 09/15/19 14:17 TAKE D/T ASTHMA citric acid AdvReac Verified 09/15/19 14:17 [From [facility]] NSAIDS (Non-Steroidal AdvReac Verified 09/15/19 14:17 Anti-Inflamma sodium bicarbonate AdvReac Verified 09/15/19 14:17 [From [facility]] 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) Coronary artery disease (Chronic) multi-vessel disease - medical management Depression (Chronic) Diabetic neuropathy (Chronic) GERD (gastroesophageal reflux disease) (Chronic) Tena's thyroiditis (Chronic) History of non-ST elevation myocardial infarction (NSTEMI) (Resolved) Hyperlipidemia (Chronic) Hypertension (Chronic) Mural thrombus of heart (Acute) Noted on echo November 2018 Pacemaker (Chronic) dual chamber Paroxysmal atrial tachycardia (Chronic) Polymyalgia rheumatica (Chronic) Sick sinus syndrome (Chronic) Type 2 diabetes mellitus (Chronic) Vitamin D deficiency (Chronic) Surgical History History of temporal artery biopsy Family History Father Stroke Other Family history non-contributory Social History Preferred Language: Bahamian Communication Ability: Effective [employer]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: No Beliefs That Will Affect Care: None marital status: Current Living Situation: Family Feels Safe at Home: Yes Smoking Status: Never smoker Hx Alcohol Use: No Hx Substance Use: No caffeine: Yes Seatbelt Use: always Review of Systems A total of 10 systems reviewed and were otherwise negative Physical Exam Vital Signs Vital Signs - 24 hr 09/15/19 12:15 09/15/19 12:37 09/15/19 13:07 Temperature 38.9 C H Temperature Source Oral Pulse Rate 74 71 76 Pulse Rate from SpO2 Sensor 76 Pulse Rhythm Regular Pulse Strength Normal Respiratory Rate 20 34 H 30 H Respiratory Effort / Characteristics Non-Labored Spontaneous Respiratory Depth Normal Respiratory Pattern Regular Blood Pressure 182/78 H 169/69 H 159/71 H Blood Pressure Mean 112 122 110 Pulse Oximetry 98 95 96 Oxygen Delivery Method Room Air Room Air Room Air Sepsis Recent Fever Within 48 Hours Yes Sepsis Action Taken by Nursing No Action Required 09/15/19 13:30 09/15/19 14:00 09/15/19 14:01 Temperature Temperature Source Pulse Rate 72 71 71 Pulse Rate from SpO2 Sensor Pulse Rhythm Pulse Strength Respiratory Rate 37 H 36 H 36 H Respiratory Effort / Characteristics Respiratory Depth Respiratory Pattern Blood Pressure 144/65 H 122/58 L Blood Pressure Mean 104 85 Pulse Oximetry 96 95 Oxygen Delivery Method Room Air Room Air Sepsis Recent Fever Within 48 Hours Sepsis Action Taken by Nursing 09/15/19 14:11 Temperature 37.7 C H Temperature Source Oral Pulse Rate Pulse Rate from SpO2 Sensor Pulse Rhythm Pulse Strength Respiratory Rate Respiratory Effort / Characteristics Respiratory Depth Respiratory Pattern Blood Pressure Blood Pressure Mean Pulse Oximetry Oxygen Delivery Method Sepsis Recent Fever Within 48 Hours Sepsis Action Taken by Nursing CONSTITUTIONAL/VITAL SIGNS: Reviewed / noted above. GENERAL: Patient appears tired and slightly drowsy. INTEGUMENTARY: Warm, dry, and [place]. HEAD: Normocephalic. EYES: without scleral icterus or trauma. ENT/OROPHARYNX: clear and moist. LYMPHADENOPATHY/NECK: Is supple without lymphadenopathy or meningismus. RESPIRATORY: Lungs clear and equal. No respiratory distress. CARDIOVASCULAR: Regular rate and irregular rhythm. GI/ABDOMEN: Soft and nontender. No organomegaly or pulsatile mass. No rebound or guarding. Normal bowel sounds. EXTREMITIES: Warm and well perfused. BACK: No CVA tenderness. NEUROLOGICAL: Intact without focal deficits. PSYCHIATRIC: normal affect. MUSCULOSKELETAL: Normally developed with good muscle tone. TRIAGE NURSING DOCUMENTATION REVIEWED. Course Administered Medications Discontinued Medications Acetaminophen (Tylenol) 650 mg PO ONE STA Stop: 09/15/19 12:18 Last Admin: 09/15/19 12:53 Dose: 650 mg Documented by: [id number] Sodium Chloride (Nss) 500 mls @ 500 mls/hr IV .Q1H KATHLEEN Stop: 09/15/19 13:29 Last Infusion: 09/15/19 13:57 Dose: 0 mls/hr Documented by: [id number] Admin: 09/15/19 12:54 Dose: 500 mls/hr Documented by: [id number] Ceftriaxone Sodium (Rocephin) 1,000 mg in 50 mls @ 100 mls/hr IV NOW STA Stop: 09/15/19 12:46 Last Infusion: 09/15/19 13:41 Dose: 0 mls/hr Documented by: [id number] Admin: 09/15/19 12:53 Dose: 100 mls/hr Documented by: [id number] Piperacillin Sod/Tazobactam (Sod 3.375 gm/ Dextrose) 100 ml in 115 mls @ 230 mls/hr IV NOW STA Stop: 09/15/19 14:15 Last Admin: 09/15/19 14:12 Dose: 230 mls/hr Documented by: [id number] Medical Decision Making Differential Diagnosis Differential includes viral illness, influenza, streptococcal pharyngitis, meningitis, pneumonia, sinusitis, UTI, pyelonephritis, otitis media. Medical Records Attestation: I reviewed the patient's medical records. Home Medications Current Medication List: was personally reviewed by me Laboratory Data Attestation: I reviewed the patient's lab results. Result diagrams: 09/15/19 12:56 09/15/19 12:56 Lab Results 06/09/15/19 09/15/19 Range/Units 12:56 12:56 12:56 WBC 23.08 H (4.8-10.8) K/uL RBC 4.65 L (4.7-6.1) M/uL Hgb 11.9 L (14.0-18.0) g/dL Hct 38.6 L (42-52) % MCV 83.0 (80-100) fL MCH 25.6 (25-34) pg MCHC 30.8 L (32-36) g/dL RDW Std Deviation 53.3 H (36.4-46.3) fL RDW Coeff of Andrew 17.5 H (11.5-14.5) % Plt Count 390 (130-400) K/uL MPV 10.7 H (7.4-10.4) fL Immature Gran % (Auto) 0.3 % Neut % (Auto) 85.9 % Lymph % (Auto) 2.3 % [place] % (Auto) 7.5 % Eos % (Auto) 3.9 % Baso % (Auto) 0.1 % Neut # (Auto) 19.85 H (1.4-6.5) K/uL Lymph # (Auto) 0.53 L (1.2-3.4) K/uL [place] # (Auto) 1.72 H (0.11-0.59) K/uL Eos # (Auto) 0.89 H (0-0.5) K/uL Baso # (Auto) 0.03 (0-0.2) K/uL Immature Gran # (Auto) 0.06 H (0.00-0.02) K/uL PT 37.9 H (9.0-12.0) Seconds INR 3.9 H (0.9-1.1) Sodium 138 (136-145) mmol/L Potassium 4.2 (3.5-5.1) mmol/L Chloride 107 (98-107) mmol/L Carbon Dioxide 23 (21-32) mmol/L Anion Gap 8.0 (3-11) BUN 26 H (7-18) mg/dl Creatinine 1.44 H (0.6-1.4) mg/dl Est Cr Clr Drug Dosing 45.0 ml/min Est GFR ( Amer) 52.4 Est GFR (Non-Af Amer) 45.2 BUN/Creatinine Ratio 18.4 (10-20) Glucose 262 H (70-99) mg/dl Lactate (0.4-2.0) mmol/L Calcium 8.7 (8.5-10.1) mg/dl Total Bilirubin 0.5 (0.2-1) mg/dl AST 13 L (15-37) U/L ALT 25 (12-78) U/L Alkaline Phosphatase 116 (45-117) U/L Troponin I 0.056 H* (0-0.045) ng/ml Total Protein 7.6 (6.4-8.2) gm/dl Albumin 3.2 L (3.4-5.0) gm/dl Globulin 4.4 H (2.5-4.0) gm/dl Albumin/Globulin Ratio 0.7 L (0.9-2) Procalcitonin (0-0.5) ng/ml Urine Color Urine Appearance (Clear) Urine pH (4.5-7.5) Ur Specific [place] (1.000-1.030) Urine Protein (Negative) Urine Glucose (UA) (Negative) Urine Ketones (Negative) Urine Blood (Negative) Urine Nitrite (Negative) Urine Bilirubin (Negative) Urine Urobilinogen (Negative) Ur Leukocyte Esterase (Negative) Urine WBC (Auto) (0-5) /hpf Urine RBC (Auto) (0-4) /hpf U Hyaline Cast (Auto) (0-5) /lpf U Epithel Cells (Auto) (0-5) /lpf Urine Bacteria (Auto) (Negative) 09/15/19 09/15/19 09/15/19 Range/Units 12:56 12:56 13:06 WBC (4.8-10.8) K/uL RBC (4.7-6.1) M/uL Hgb (14.0-18.0) g/dL Hct (42-52) % MCV (80-100) fL MCH (25-34) pg MCHC (32-36) g/dL RDW Std Deviation (36.4-46.3) fL RDW Coeff of Andrew (11.5-14.5) % Plt Count (130-400) K/uL MPV (7.4-10.4) fL Immature Gran % (Auto) % Neut % (Auto) % Lymph % (Auto) % [place] % (Auto) % Eos % (Auto) % Baso % (Auto) % Neut # (Auto) (1.4-6.5) K/uL Lymph # (Auto) (1.2-3.4) K/uL [place] # (Auto) (0.11-0.59) K/uL Eos # (Auto) (0-0.5) K/uL Baso # (Auto) (0-0.2) K/uL Immature Gran # (Auto) (0.00-0.02) K/uL PT (9.0-12.0) Seconds INR (0.9-1.1) Sodium (136-145) mmol/L Potassium (3.5-5.1) mmol/L Chloride (98-107) mmol/L Carbon Dioxide (21-32) mmol/L Anion Gap (3-11) BUN (7-18) mg/dl Creatinine (0.6-1.4) mg/dl Est Cr Clr Drug Dosing ml/min Est GFR ( Amer) Est GFR (Non-Af Amer) BUN/Creatinine Ratio (10-20) Glucose (70-99) mg/dl Lactate 2.7 H* (0.4-2.0) mmol/L Calcium (8.5-10.1) mg/dl Total Bilirubin (0.2-1) mg/dl AST (15-37) U/L ALT (12-78) U/L Alkaline Phosphatase (45-117) U/L Troponin I (0-0.045) ng/ml Total Protein (6.4-8.2) gm/dl Albumin (3.4-5.0) gm/dl Globulin (2.5-4.0) gm/dl Albumin/Globulin Ratio (0.9-2) Procalcitonin 0.13 (0-0.5) ng/ml Urine Color Yellow Urine Appearance Clear (Clear) Urine pH 5.0 (4.5-7.5) Ur Specific [place] 1.015 (1.000-1.030) Urine Protein Negative (Negative) Urine Glucose (UA) Negative (Negative) Urine Ketones Negative (Negative) Urine Blood Negative (Negative) Urine Nitrite Negative (Negative) Urine Bilirubin Negative (Negative) Urine Urobilinogen Negative (Negative) Ur Leukocyte Esterase Trace H (Negative) Urine WBC (Auto) 0 (0-5) /hpf Urine RBC (Auto) 0-4 (0-4) /hpf U Hyaline Cast (Auto) 0 (0-5) /lpf U Epithel Cells (Auto) 5-10 H (0-5) /lpf Urine Bacteria (Auto) Negative (Negative) Imaging Data Attestation: I personally reviewed and interpreted this imaging study as follows: My Impression: Left lower lobe pneumonia Radiologist's Impression: Chest x-ray:IMPRESSION: Diffuse infiltrate left mid and lower lung. 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.) ECG ST segments: no ST elevation ECG Findings: no PVCs Change: no significant change (09/11/2019) Blood Pressure Blood Pressure Findings: Elevated blood pressure MDM Narrative This is an 79-year-old male who has significant past medical history of CAD with ischemic cardiomyopathy, heart failure with reduced ejection fraction, SSS status post pacemaker, HTN, HLD, paroxysmal atrial fibrillation anticoagulated on warfarin, insulin-dependent T2DM, adrenal insufficiency, CKD stage III, PMR, hypothyroidism, diabetic neuropathy and nephropathy, depression with anxiety, BPH, vitamin D deficiency and GERD who presents to ED with a chief complaint of a fever. The patient was sent to the ED for evaluation of this. The patient wa s discharged from the hospital 4 days ago after being admitted for syncope. The patient reports a runny nose, slight cough that is nonproductive, little trouble breathing as well as a little diarrhea. He does not recall being on antibiotics recently. The patient denies a headache, chest pains, abdominal pains, nausea or vomiting. He does report some frequency with urination. The patient is so mewhat of a poor historian but does answer questions appropriately. The patient's temperature in the ED is 38.9. His blood pressure is elevated at 182/78. Heart rate is 74. Respiratory rate is 20 and unlabored. Oxygen saturations are 98% on room air. Rest of his exam was relatively unremarkable with exception of some drowsiness. Twelve-lead EKG shows a chronic atrial paced rhythm at a rate of 73 with a right bundle branch block. The patient's white blood cell count is elevated at 23,000. Hemoglobin is 11.9. BUN is 26 and creatinine is 1.44. The troponin is elevated at 0.056 and the lactic acid level is elevated at 2.7. INR is 3.9. Urine did not show clear infection. Chest x-ray: Shows a left lower lobe pneumonia. The patient was treated with 500 cc of normal saline IV. Excessive fluids were not provided as the patient has a history of congestive heart failure. He also does not appear to have any findings to suggest a septic shock. He was given IV Rocephin and IV Zosyn. He was also given oral Tylenol. He will be seen by the hospitalist for further inpatient evaluation and care. Impression & Plan LLL pneumonia, Fever Discharge Plan Visit Data Chief Complaint: Fever Stated Complaint: FEVER 100.4, SOB,BODY ACHES, DIS FROM HOSP ON ED Provider: Claudio Wagoner Discharge Problem: LLL pneumonia, Fever Patient Disposition: Being Evaluated by Hospitalist Forms Stand Alone Forms: [facility] Prescriptions Prescriptions: No Action gabapentin [Neurontin] 300 mg capsule 300 mg PO HS Qty: 90 RF: 3 (DME) OneTouch Ultra Blue Test Strip strip See Dose Instructions .ROUTE .MEDSUPPLY Qty: 200 RF: 5 Lantus Solostar U-100 Insulin 100 unit/mL (3 mL) insulin pen 25 units SQ HS Qty: 15 RF: 5 hydrocortisone 10 mg tablet 10 mg PO HS Qty: 90 RF: 3 pravastatin 40 mg tablet 40 mg PO HS Qty: 90 RF: 3 hydrocortisone 20 mg tablet 20 mg PO QAM Qty: 90 RF: 3 (DME) pen needle, diabetic [BD Mary 2nd Gen Pen Needle] 32 gauge x 5/32" needle See Dose Instructions .ROUTE .MEDSUPPLY Qty: 200 RF: 3 budesonide-formoterol 160-4.5 mcg/actuation HFA aerosol inhaler 2 puff Inhalation BID Qty: 10.2 RF: 5 clopidogrel 75 mg tablet 75 mg PO QAM Qty: 30 RF: 5 metoprolol succinate 25 mg tablet extended release 24 hr 25 mg PO QAM RF: 0 albuterol sulfate 90 mcg/actuation HFA aerosol inhaler 2 puff Inhalation QID PRN (Reason: Shortness Of Breath Or Wheezing) RF: 0 acetaminophen [Tylenol] 325 mg Tablet 325 mg PO Q6H PRN (Reason: Pain) RF: 0 torsemide 20 mg tablet 10 mg PO QAM RF: 0 amiodarone 200 mg tablet 200 mg PO QAM RF: 0 spironolactone 25 mg tablet 12.5 mg PO MOWEFR RF: 0 levothyroxine 75 mcg tablet 75 mcg PO QAM RF: 0 polyethylene glycol 3350 [Miralax] 17 gram Powder In Packet 17 g PO DAILY 30 Days Qty: 30 RF: 2 warfarin 2.5 mg tablet 2.5 mg PO MOWEFRSA RF: 0 zafirlukast 20 mg tablet 20 mg PO BID RF: 0 escitalopram oxalate 10 mg Tablet 10 mg PO DAILY RF: 0 warfarin 2.5 mg Tablet 1.25 mg PO SUTUTH RF: 0 omeprazole 20 mg Capsule,Delayed Release(Dr/Ec) 20 mg PO QAM RF: 0 Referrals Referrals: Steve Quintero MD [Primary Care Provider] -
[2019-09-15] MEDS ORDERED: cefTRIAXone SODIUM 1,000 MG/50 ML BAG IV STA (12:17)
[2019-09-15] MEDS ORDERED: ACETAMINOPHEN 325 MG TAB PO STA (12:17)
[2019-09-15] MEDS ORDERED: SODIUM CHLORIDE 0.9% 500 ML IV SCH (12:30)
[2019-09-15 13:15] LABS: Basophils # (auto) 0.03 K/uL (0-0.2); Basophils % (auto) 0.1 %; Eosinophils # (auto) 0.89 K/uL (0-0.5); Eosinophils % (auto) 3.9 %; Hematocrit (blood only) 38.6 % (42-52); Hemoglobin 11.9 g/dL (14.0-18.0); Immature Granulocytes # (auto) 0.06 K/uL (0.00-0.02); Immature Granulocytes % (auto) 0.3 %; Lymphocytes # (auto) 0.53 K/uL (1.2-3.4); Lymphocytes % (auto) 2.3 %; Mean Corpuscular Hemoglobin 25.6 pg (25-34); Mean Corpuscular Hgb Conc 30.8 g/dL (32-36); Mean Platelet Volume 10.7 fL (7.4-10.4); Monocytes # (auto) 1.72 K/uL (0.11-0.59); Monocytes % (auto) 7.5 %; Neutrophils # (auto) 19.85 K/uL (1.4-6.5); Neutrophils % (auto) 85.9 %; Platelet Count 390 K/uL (130-400); RDW Coefficient of Variation 17.5 % (11.5-14.5); RDW Standard Deviation 53.3 fL (36.4-46.3); Red Blood Count 4.65 M/uL (4.7-6.1); White Blood Count 23.08 K/uL (4.8-10.8)
[2019-09-15 13:21] LABS: Appearance Urine Clear (Clear); Bacteria Urine Automated Negative (Negative); Bilirubin Urine Negative (Negative); Blood Urine Negative (Negative); Cast Urine Automated 0 /lpf (0-5); Color Urine Yellow; Glucose Urine UA Negative (Negative); Ketones Urine Negative (Negative); Leukocyte Esterase Urine Trace (Negative); Nitrite Urine Negative (Negative); Protein Urine Negative (Negative); RBC Urine Automated 0-4 /hpf (0-4); Specific Gravity Urine 1.015 (1.000-1.030); Urobilinogen Urine Negative (Negative); WBC Urine Automated 0 /hpf (0-5)
[2019-09-15 13:32] LABS: Albumin Level 3.2 gm/dl (3.4-5.0); BUN Creatinine Ratio 18.4 (10-20); Calcium 8.7 mg/dl (8.5-10.1); Est GFR (African American) 52.4; Est GFR (Non-African American) 45.2; Potassium 4.2 mmol/L (3.5-5.1)
[2019-09-15 13:33] LABS: INR 3.9 (0.9-1.1); Prothrombin Time 37.9 Seconds (9.0-12.0)
[2019-09-15 13:44] LABS: Albumin Globulin Ratio 0.7 (0.9-2); Bilirubin,Total 0.5 mg/dl (0.2-1); Globulin 4.4 gm/dl (2.5-4.0); Total Protein 7.6 gm/dl (6.4-8.2); Troponin I 0.056 ng/ml (0-0.045)
[2019-09-15] MEDS ORDERED: PIPERACILL/TAZOBAC CONSULT ACTIVE PRN ×2 (13:46→21:35)
[2019-09-15] MEDS ORDERED: PIPERACILLIN/TAZOBACTAM 3.375 GM in DEXTROSE 5% 100 ML/100 ML BAG IV STA (13:46)
--- NOTE | 2019-09-15 14:20 | XRay Report ---
XR chest 1V portable CLINICAL HISTORY: fever COMPARISON STUDY: 09/09/2019 FINDINGS: Diffuse parenchymal infiltrate left mid to lower lung. Slight interstitial prominence right base considered unaltered from the prior exam. Upper lungs are clear. IMPRESSION: Diffuse infiltrate left mid and lower lung. ACT 112: Negative or not required by law. The above report was generated using voice recognition software. It may contain grammatical, syntax or spelling errors. Electronically signed by: Kelby Solomon M.D. 09/15/2019 2:19 PM
[2019-09-15] MEDS ORDERED: ACETAMINOPHEN 325 MG TAB PO PRN (15:25)
[2019-09-15] MEDS ORDERED: ALUMINUM/MAGNESIUM SUSP 30 ML UDC PO PRN (15:25)
[2019-09-15] MEDS ORDERED: NITROGLYCERIN SL 0.4 MG/TAB TAB SL PRN (15:25)
[2019-09-15] MEDS ORDERED: POLYETHYLENE (MIRALAX) 17 GM PACK PO PRN (15:25)
[2019-09-15] MEDS ORDERED: MAGNESIUM HYDROXIDE SUSP 30 ML UDC PO PRN (15:25)
--- NOTE | 2019-09-15 15:28 | Electrocardiogram Report ---
Test Reason : Blood Pressure : / mmHG Vent. Rate : 073 BPM Atrial Rate : 073 BPM P-R Int : 304 ms QRS Dur : 164 ms QT Int : 432 ms P-R-T Axes : -34 -73 049 degrees QTc Int : 475 ms Atrial-paced rhythm with prolonged AV conduction Left axis deviation Right bundle branch block Left ventricular hypertrophy with repolarization abnormality Inferior infarct , age undetermined Abnormal ECG When compared with ECG of 11-SEP-2019 06:57, No significant change was found Confirmed by Trevor Gonzalez ([id number]) on 09/15/2019 3:28:01 PM Referred By: REFERRED SELF Confirmed By:Cleveland Gonzalez
--- NOTE | 2019-09-15 15:34 | History & Physical Report ---
Date of Service September 15, 2019 Assessment & Plan (1) Severe sepsis: Patient meets criteria for severe sepsis, admitted with a fever chills/tachypnea/ leukocytosis-WBC 23K, elevated lactic acid Source of infection: Pulmonary: Chest x-ray shows bilateral lower lobe infiltrate COVID-19 test negative Patient was recently hospitalized to [facility] Was given IV Zosyn which will be continued We will add IV vancomycin for possible healthcare associated pneumonia MRSA nasal swab ordered CT chest noncontrast ordered for further evaluation of lung infiltrate Blood cultures sputum culture ordered in ER, follow report Patient will be monitored in telemetry (2) LLL pneumonia: Management as outlined above (3) Acute kidney injury: Admitted with acute renal failure with underlying CKD stage III, baseline creatinine 1.2, on admission creatinine 1.4 Possible secondary to severe sepsis, dehydration Ordered IV fluids, Hold diuretics, avoid NSAIDs, avoid contrast studies (4) Type 2 diabetes mellitus: Insulin sliding scale /continue basal Lantus (5) Adrenal insufficiency: Chronic, vitals stable, continue outpatient p.o. steroid supplement Chronic CHF with systolic dysfunction: Echocardiogram on last admission 09/10/2019 showed EF ejection fraction of 40%, Patient appears to be volume depleted/dehydrated secondary to severe sepsis Ordered for gentle hydration Will hold Aldactone and torsemide History of paroxysmal A. fib, on chronic anticoagulation with Coumadin: INR therapeutic Continue beta-alex, amiodarone CODE STATUS: Discussed with patient/full code Disposition: PT OT eval requested Lives at home with daughter, social service consulted for discharge planning History of Present Illness Chief Complaint: Generalized weakness, fever chills shortness of breath Primary Care Provider: Steve Quintero MD This is an 79-year-old male with complex past medical history of CAD with ischemic cardiomyopathy, heart failure with reduced ejection fraction, SSS status post pacemaker, HTN, HLD, paroxysmal atrial fibrillation anticoagulated on warfarin, insulin-dependent T2DM, adrenal insufficiency on chronic steroid, CKD stage III, PMR, hypothyroidism, diabetic neuropathy and nephropathy, Brought to ER-with complaint of fever chills, nonproductive cough Patient was recently admitted to [facility] due to syncope from 09/09/2019 to 09/11/2019 Patient reports he felt well last 2 to 3 days, this morning woke up with chills ,rigor, headache, mild shortness of breath, nonproductive cough, generalized weakness and body ache Patient lives with his daughter and son-in-law Not aware of any contact with COVID positive person Labs shows marketed leukocytosis with white count of 20 3K, elevated lactic acid, elevated d-dimer, chest x-ray shows bilateral infiltrate, Rapid COVID-19 test negative Allergies Allergy/AdvReac Type Severity Reaction Status Date / Time aspirin Allergy Unknown DOES NOT Verified 09/15/19 14:17 TAKE D/T ASTHMA citric acid AdvReac Verified 09/15/19 14:17 [From [facility]] NSAIDS (Non-Steroidal AdvReac Verified 09/15/19 14:17 Anti-Inflamma sodium bicarbonate AdvReac Ver[facility] 09/15/19 14:17 [facility] Home Medications Home Medications Medication Instructions Recorded Confirmed Type albuterol sulfate 2 puff INHALATION QID PRN 01/30/18 09/09/19 History metoprolol succinate 25 mg PO QAM 01/30/18 09/09/19 History omeprazole 20 mg PO QAM 07/25/18 09/09/19 History gabapentin 300 mg capsule 300 mg PO HS #90 cap 11/10/18 09/09/19 Rx acetaminophen [Tylenol] 325 mg PO Q6H PRN 11/23/18 09/09/19 History blood sugar diagnostic #200 ea 12/04/18 12/25/18 Rx hydrocortisone 10 mg tablet 10 mg PO HS #90 tab 01/17/19 09/09/19 Rx insulin glargine 100 unit/mL (3 25 units SQ HS #15 ml 01/17/19 09/09/19 Rx mL) subcutaneous pen amiodarone 200 mg PO QAM 02/20/19 09/09/19 History levothyroxine 75 mcg PO QAM 02/20/19 09/09/19 History spironolactone 12.5 mg PO MOWEFR 02/20/19 09/09/19 History torsemide 10 mg PO QAM 02/20/19 09/09/19 History polyethylene glycol 3350 [Miralax] 17 g PO DAILY 30 Days #30 ea 02/24/19 09/09/19 Rx pravastatin 40 mg tablet 40 mg PO HS #90 tab 05/07/19 09/09/19 Rx hydrocortisone 20 mg tablet 20 mg PO QAM #90 tab 05/22/19 09/09/19 Rx pen needle, diabetic 32 gauge x #200 ea 05/28/19 Rx 5/32" budesonide-formoterol HFA 160 2 puff INHALATION BID #10.2 gm 05/31/19 09/09/19 Rx mcg-4.5 mcg/actuation aerosol inhaler clopidogrel 75 mg tablet 75 mg PO QAM #30 tab 08/01/19 09/09/19 Rx escitalopram oxalate 10 mg PO DAILY 09/09/19 09/09/19 History warfarin 1.25 mg PO SUTUTH 09/09/19 09/09/19 History warfarin 2.5 mg PO MOWEFRSA 09/09/19 09/09/19 History zafirlukast 20 mg PO BID 09/09/19 09/09/19 History 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) Coronary artery disease (Chronic) multi-vessel disease - medical management Depression (Chronic) Diabetic neuropathy (Chronic) GERD (gastroesophageal reflux disease) (Chronic) Tena's thyroiditis (Chronic) History of non-ST elevation myocardial infarction (NSTEMI) (Resolved) Hyperlipidemia (Chronic) Hypertension (Chronic) Mural thrombus of heart (Acute) Noted on echo November 2018 Pacemaker (Chronic) dual chamber Paroxysmal atrial tachycardia (Chronic) Polymyalgia rheumatica (Chronic) Sick sinus syndrome (Chronic) Type 2 diabetes mellitus (Chronic) Vitamin D deficiency (Chronic) Surgical History History of temporal artery biopsy Family History Father Stroke Other Family history non-contributory Social History Preferred Language: [place] Island[place] Communication Ability: Effective Optimization Consultant Required: No Beliefs That Will Affect Care: None marital status: Current Living Situation: Family Feels Safe at Home: Yes Smoking Status: Never smoker Hx Alcohol Use: No Hx Substance Use: No caffeine: Yes Seatbelt Use: always Review of Systems Review of Systems: All systems reviewed & are unremarkable except as noted in HPI & below Constitutional: + fever, + chills, + body aches, + fatigue, + malaise and + weakness Ear, Nose, Mouth, Throat: + dizziness, + nasal congestion and + sore throat Respiratory: + cough, + dyspnea on exertion and + sputum production Cardiovascular: + dyspnea and + lightheadedness; no chest pain, no palpitations, no syncope, no edema and no calf pain Gastrointestinal: + nausea and + diarrhea/loose stools; no abdominal pain Physical Exam Constitutional: WD/WN, vitals as above + ill appearing; no acute distress Eyes: PERRL, conjunctivae normal, anicteric sclerae ENMT: external ear and nose normal, oropharynx normal Neck: trachea midline, no thyromegaly Respiratory: + cough; no labored breathing Auscultation: + crackles Cardiovascular: RRR, no murmur, no edema Gastrointestinal (Abdomen): Percussion/Palpation: abdomen soft; abdomen nontender Musculoskeletal: Generalized weakness Neurologic: PERRL, EOMI, accommodation nl, no face palsy, no dysarthria Psychiatric: A+Ox3, euthymic affect Results & Data Results & Data ([facility]) Vital Signs (Past 12 Hours) Vital Signs Temp Pulse Resp BP Pulse Ox 09/15/19 14:30 70 30 H 123/58 L 94 09/15/19 14:11 37.7 C H 09/15/19 14:01 71 36 H 09/15/19 14:00 71 36 H 122/58 L 95 09/15/19 13:30 72 37 H 144/65 H 96 09/15/19 13:07 76 30 H 159/71 H 96 09/15/19 12:37 71 34 H 169/69 H 95 09/15/19 12:15 38.9 C H 74 20 182/78 H 98 Diagnostic Findings Chest x-ray: IMPRESSION: Diffuse infiltrate left mid and lower lung. Code Status & VTE Plan VTE Prophylaxis Plan VTE Prophylaxis will be ordered: Yes (1) LLL pneumonia Pneumonia type: due to unspecified organism Qualified Code(s): J18.9 - Pneumonia, unspecified organism
[2019-09-15] MEDS ORDERED: SODIUM CHLORIDE 0.9% 1000ML 1,000 ML IV SCH (16:00)
[2019-09-15 16:19] LABS: D Dimer 670 ug/L FEU (0-500)
[2019-09-15] MEDS ORDERED: VANCOMYCIN CONSULT ACTIVE PRN (19:22)
[2019-09-15] MEDS ORDERED: VANCOMYCIN HCL 1,000 MG in SODIUM CHLORIDE 0.9% 250 ML IV SCH (19:30)
[2019-09-15] MEDS ORDERED: WARFARIN SOD 2.5 MG TAB PO SCH (21:35)
[2019-09-15] MEDS ORDERED: TORSEMIDE 10 MG PO SCH (21:35)
[2019-09-15] MEDS ORDERED: ALBUTEROL HFA 8 GM INHALER INH PRN (21:35)
[2019-09-15] MEDS ORDERED: PIPERACILLIN/TAZOBACTAM 3.375 GM in DEXTROSE 5% 100 ML IV ONE (22:00)
[2019-09-15] MEDS: HYDROCORTISONE 10 MG TAB PO SCH (22:39)
[2019-09-15] MEDS: INSULIN GLARGINE SOLOSTAR 100 UNITS/ML 3 ML PEN SQ SCH (22:39)
[2019-09-15] MEDS: PRAVASTATIN SOD 40 MG TAB PO SCH (22:40)
[2019-09-15] MEDS: GABAPENTIN 300 MG CAP PO SCH (22:40)
[2019-09-16] MEDS ORDERED: VANCOMYCIN HCL 1,000 MG in SODIUM CHLORIDE 0.9% 250 ML IV STA (00:56)
[2019-09-16] MEDS: PIPERACILLIN/TAZOBACTAM 3.375 GM in DEXTROSE 5% 100 ML IV SCH ×3 (04:15→20:52)
[2019-09-16] MEDS: LEVOTHYROXINE SODIUM 75 MCG TABLET PO SCH (05:46)
[2019-09-16 06:14] LABS: Basophils # (auto) 0.03 K/uL (0-0.2); Basophils % (auto) 0.2 %; Eosinophils # (auto) 0.84 K/uL (0-0.5); Eosinophils % (auto) 6.3 %; Hematocrit (blood only) 31.9 % (42-52); Hemoglobin 10.2 g/dL (14.0-18.0); Immature Granulocytes # (auto) 0.03 K/uL (0.00-0.02); Immature Granulocytes % (auto) 0.2 %; Lymphocytes # (auto) 0.85 K/uL (1.2-3.4); Lymphocytes % (auto) 6.4 %; Mean Corpuscular Volume 81.4 fL (80-100); Mean Platelet Volume 10.3 fL (7.4-10.4); Monocytes % (auto) 8.3 %; Neutrophils # (auto) 10.42 K/uL (1.4-6.5); Neutrophils % (auto) 78.6 %; Platelet Count 294 K/uL (130-400); RDW Coefficient of Variation 17.6 % (11.5-14.5); RDW Standard Deviation 52.1 fL (36.4-46.3); Red Blood Count 3.92 M/uL (4.7-6.1); White Blood Count 13.27 K/uL (4.8-10.8)
[2019-09-16 06:21] LABS: INR 2.8 (0.9-1.1); Prothrombin Time 28.1 Seconds (9.0-12.0)
--- NOTE | 2019-09-16 06:23 | CT Scan Report ---
CT chest wo con CT DOSE: 293.35 mGy.cm HISTORY: Pneumonia bilateral pneumonia TECHNIQUE: Multiaxial CT images of the chest were performed without contrast. A dose lowering techni que was utilized adhering to the principles of ALARA. COMPARISON: 09/04/2018 FINDINGS: Bilateral parenchymal infiltrates are again noted. The right middle lobe infiltrative proce ss it appears similar. The right pulmonary apex is considered clear. Left pulmonary apex is clear. There is a diffuse interval left upper lobe infiltrate. The left lower lobe shows minimal posterior parenchymal infiltrative change. No significant mediastinal or hilar adenopathy. Mild stable cardiomegaly. IMPRESSION: 1. Stable right hemithoracic infiltrate. 2. Progressive left upper lobe infiltrate. ACT 112: Negative or not required by law. The above report was generated using voice recognition software. It may contain grammatical, syntax or spelling errors. Electronically signed by: Kelby Solomon M.D. 09/16/2019 6:21 AM
[2019-09-16 07:04] LABS: BUN Creatinine Ratio 18.5 (10-20); Calcium 8.2 mg/dl (8.5-10.1); Creatinine Clr Calc Pharmacy 52.2 ml/min; Est GFR (African American) 62.8; Est GFR (Non-African American) 54.2; Potassium 3.5 mmol/L (3.5-5.1)
[2019-09-16] MEDS: TORSEMIDE 10 MG TAB PO SCH (07:58)
[2019-09-16] MEDS: ESCITALOPRAM OXALATE 10 MG TAB PO SCH (07:59)
[2019-09-16] MEDS: PANTOprazole 40 MG TAB PO SCH (07:59)
[2019-09-16] MEDS: AMIODARONE 200 MG TAB PO SCH (07:59)
[2019-09-16] MEDS: POLYETHYLENE (MIRALAX) 17 GM PACK PO SCH (07:59)
[2019-09-16] MEDS: METOPROLOL SUCC 25MG EXT REL TAB PO SCH (07:59)
[2019-09-16] MEDS: HYDROCORTISONE 10 MG TAB PO SCH ×2 (07:59→20:53)
[2019-09-16] MEDS: CLOPIDOGREL BISULFATE 75 MG TAB PO SCH (08:00)
[2019-09-16] MEDS: FLUTICASONE/VILANTEROL 100/25MCG 14 PUFFS/INHALER INH SCH (09:15)
--- NOTE | 2019-09-16 10:20 | Hospitalist Progress Note ---
Date of Service September 16, 2019 Assessment & Plan (1) Severe sepsis: 09/16/2019 ED notes "This is an 79-year-old male who has significant past medical history of CAD with ischemic cardiomyopathy, heart failure with reduced ejection fraction, SSS status post pacemaker, HTN, HLD, paroxysmal atrial fibrillation anticoagulated on warfarin, insulin-dependent T2DM, adrenal insufficiency, CKD stage III, PMR, hypothyroidism, diabetic neuropathy and nephropathy, depression with anxiety, BPH, vitamin D deficiency and GERD who presents to ED with a chief complaint of a fever. The patient was sent to the ED for evaluation of this. The patient was discharged from the hospital 4 days ago after being admitted for syncope." -as per admitting hospitalist "Patient meets criteria for severe sepsis, admitted with a fever chills/tachypnea/ leukocytosis-WBC 23K, elevated lactic acid" and Source of infection: Pulmonary: Chest x-ray Diffuse infiltrate left mid and lower lung. CT CT chest: Stable right hemithoracic infiltrate. Progressive left upper lobe infiltrate. 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 steroid supplement Chronic CHF with systolic dysfunction: Echocardiogram on last admission 09/10/2019 showed EF ejection fraction of 40%, continue Aldactone and torsemide History of paroxysmal A. fib, on chronic anticoagulation with Coumadin: INR therapeutic as 2.8 on 09/16/2019 Continue beta-alex, amiodarone CODE STATUS: Discussed with patient/full code Disposition: PT/OT evaluations Lives at home with daughter, social service consulted for discharge planning Admission and Anticipated Discharge Date Admission Date: September 15, 2019 Subjective patient on supplementary oxygen. feels like he is breathing okay subjectively, no chest pain. no palpitations. no chills today. no shaking. no dizziness. no headache. no nausea. no abdominal pain Review of Systems Review of Systems: All systems reviewed & are unremarkable except as noted in Subjective Physical Exam Constitutional: comfortable Eyes: PERRL, conjunctivae normal, anicteric sclerae EOM intact bilaterally ENMT: external ear and nose normal, oropharynx normal Neck: trachea midline, no thyromegaly normal visual inspection Respiratory: normal respiratory effort, lungs clear to auscultation Cardiovascular: RRR, no murmur, no edema Gastrointestinal (Abdomen): normal bowel sounds, soft, nontender, no hepatosplenomegaly Musculoskeletal: Head/Neck/Chest: normocephalic and head atraumatic Neurologic: PERRL, EOMI, accommodation nl, no face palsy, no dysarthria CN's II-XI intact bilaterally Psychiatric: A+Ox3, euthymic affect Results & Data Results & Data ([facility]) Vital Signs (Past 12 Hours) Vital Signs Temp Pulse Pulse Pulse Resp BP Pulse Ox 09/16/19 07:50 69 09/16/19 07:48 36.3 C L 58 L 16 119/64 100 09/16/19 07:27 66 09/16/19 03:38 37.0 C 62 20 118/65 98 09/16/19 01:16 70 (1) LLL pneumonia Pneumonia type: due to unspecified organism Qualified Code(s): J18.9 - Pneumonia, unspecified organism
[2019-09-16] MEDS ORDERED: ACETAMINOPHEN 325 MG TAB PO PRN (10:24)
[2019-09-16] MEDS: VANCOMYCIN HCL 1,000 MG in SODIUM CHLORIDE 0.9% 250 ML IV SCH (14:15)
[2019-09-16] MEDS ORDERED: WARFARIN SOD 1.25 MG TAB PO SCH ×2 (15:45→16:00)
--- NOTE | 2019-09-16 16:29 | Pharmacy Report ---
Pharmacy Abx Initial Consult - Date of Service September 16, 2019 - Pharmacy Dosing Scope Date of Consult: 09/15/19 Consultation requested by: Dr. Coronado Pharmacy is consulted to initiate Vancomycin and Zosyn IV dosing therapy, order appropriate labs and adjust drug dose/frequency. - Subjective The patient is a 79 year old M admitted on 09/15/19 15:25. - Objective Height: 5 ft 10 in Weight: 88 kg Vital Signs (Past 12hrs): Vital Signs Temp Pulse Pulse Pulse Resp BP Pulse Ox 09/16/19 15:24 37.1 C 70 16 107/50 L 99 09/16/19 14:38 100 09/16/19 14:11 09/16/19 07:50 69 09/16/19 07:48 36.3 C L 58 L 16 119/64 100 09/16/19 07:27 66 Pulse Ox 09/16/19 15:24 09/16/19 14:38 09/16/19 14:11 98 09/16/19 07:50 09/16/19 07:48 09/16/19 07:27 Lab Results (24hrs): Laboratory Tests (24 Hours) 09/16/19 09/16/19 06:01 06:01 WBC 13.27 H Neut # (Auto) 10.42 H Creatinine 1.24 Est Cr Clr Drug Dosing 52.2 - Risk Factors for Resistance * Hospitalization for 48 hours or more within the past 90 days (09/08-09/10) - Assessment & Plan Assessment 79 year old M presents with fever and leukocytosis. Chest X-ray shows diffuse infiltrates. Patient was just discharged 4 days ago after being admitted for syncope. MRSA swab negative. Blood cultures x2 pending. Plan Vancomycin and Zosyn for treatment of HAP Vancomycin IV Patient meets criteria for vancomycin AUC dosing nomogram AUC/LAUREL is the preferred PK/PD target for vancomycin Target AUC/LAUREL = 400-600 AUC guided dosing is effective and associated with decreased risk of nephrotoxicity * Estimated PK Parameters: Vd 0.7 L/kg * Loading dose: 2000 mg (22 mg/kg) * Maintenance dose: 1000 mg IV (11.3 mg/kg) every 12 hours * Goal trough level for HAP: 15 to 20 mcg/mL * Trough level ordered for 09/17/19 at 130 Piperacillin/tazobactam * 3.375 g bolus administered over 30 minutes, then 3.375 g IV extended infusion every 8 hours for CrCl greater than 20 mL/min Pharmacy will continue to follow and will adjust dose/frequency as necessary. Thank you.
[2019-09-16 16:47] LABS: Appearance Urine Clear (Clear); Bacteria Urine Automated Negative (Negative); Bilirubin Urine Negative (Negative); Blood Urine 1+ (Negative); Color Urine Yellow; Glucose Urine UA Negative (Negative); Ketones Urine Negative (Negative); Leukocyte Esterase Urine Negative (Negative); Nitrite Urine Negative (Negative); Protein Urine Negative (Negative); Specific Gravity Urine 1.021 (1.000-1.030); Urobilinogen Urine Negative (Negative)
[2019-09-16] MEDS: GABAPENTIN 300 MG CAP PO SCH (20:53)
[2019-09-16] MEDS: INSULIN GLARGINE SOLOSTAR 100 UNITS/ML 3 ML PEN SQ SCH (20:54)
[2019-09-16] MEDS: PRAVASTATIN SOD 40 MG TAB PO SCH (20:54)
[2019-09-17] MEDS: VANCOMYCIN HCL 1,000 MG in SODIUM CHLORIDE 0.9% 250 ML IV SCH (00:43)
[2019-09-17] MEDS: PIPERACILLIN/TAZOBACTAM 3.375 GM in DEXTROSE 5% 100 ML IV SCH ×3 (03:26→20:47)
[2019-09-17] MEDS: LEVOTHYROXINE SODIUM 75 MCG TABLET PO SCH (06:33)
[2019-09-17 07:29] LABS: Basophils # (auto) 0.01 K/uL (0-0.2); Basophils % (auto) 0.1 %; Eosinophils # (auto) 1.03 K/uL (0-0.5); Eosinophils % (auto) 12.1 %; Hematocrit (blood only) 29.8 % (42-52); Hemoglobin 9.5 g/dL (14.0-18.0); Immature Granulocytes # (auto) 0.02 K/uL (0.00-0.02); Immature Granulocytes % (auto) 0.2 %; Lymphocytes # (auto) 0.74 K/uL (1.2-3.4); Lymphocytes % (auto) 8.7 %; Mean Corpuscular Hemoglobin 26.5 pg (25-34); Mean Corpuscular Hgb Conc 31.9 g/dL (32-36); Mean Platelet Volume 10.4 fL (7.4-10.4); Monocytes # (auto) 0.89 K/uL (0.11-0.59); Monocytes % (auto) 10.4 %; Neutrophils # (auto) 5.83 K/uL (1.4-6.5); Neutrophils % (auto) 68.5 %; Platelet Count 283 K/uL (130-400); RDW Coefficient of Variation 17.5 % (11.5-14.5); RDW Standard Deviation 53.7 fL (36.4-46.3); Red Blood Count 3.59 M/uL (4.7-6.1); White Blood Count 8.52 K/uL (4.8-10.8)
[2019-09-17 07:38] LABS: INR 1.9 (0.9-1.1); Prothrombin Time 19.5 Seconds (9.0-12.0)
[2019-09-17 08:17] LABS: BUN Creatinine Ratio 11.2 (10-20); Calcium 8.2 mg/dl (8.5-10.1); Creatinine Clr Calc Pharmacy 48.2 ml/min; Est GFR (African American) 56.7; Est GFR (Non-African American) 48.9; Potassium 3.4 mmol/L (3.5-5.1)
[2019-09-17] MEDS: FLUTICASONE/VILANTEROL 100/25MCG 14 PUFFS/INHALER INH SCH (08:19)
[2019-09-17] MEDS: METOPROLOL SUCC 25MG EXT REL TAB PO SCH (08:20)
[2019-09-17] MEDS: POLYETHYLENE (MIRALAX) 17 GM PACK PO SCH ×2 (08:20→08:22)
[2019-09-17] MEDS: ESCITALOPRAM OXALATE 10 MG TAB PO SCH (08:20)
[2019-09-17] MEDS: HYDROCORTISONE 10 MG TAB PO SCH ×2 (08:20→20:53)
[2019-09-17] MEDS: CLOPIDOGREL BISULFATE 75 MG TAB PO SCH (08:20)
[2019-09-17] MEDS: PANTOprazole 40 MG TAB PO SCH (08:20)
[2019-09-17] MEDS: TORSEMIDE 10 MG TAB PO SCH (08:20)
[2019-09-17] MEDS: AMIODARONE 200 MG TAB PO SCH (08:20)
[2019-09-17] MEDS ORDERED: SPIRONOLACTONE 12.5 MG TAB PO SCH ×2 (09:00→15:45)
--- NOTE | 2019-09-17 10:22 | XRay Report ---
XR chest 2V PA/lateral CLINICAL HISTORY: follow lung infiltrates dyspnea COMPARISON STUDY: 09/15/2019 FINDINGS: Mild improvement of the parenchymal infiltrate left mid to lower lung. There is moderate re sidual. Minimal interstitial infiltrative change right base is unchanged. Pulmonary apices are clear. Mild st able cardiomegaly. IMPRESSION: Improving infiltrate left hemithorax. Small parenchymal infiltrate right base unchanged ACT 112: Negative or not required by law. The above report was generated using voice recognition software. It may contain grammatical, syntax or spelling errors. Electronically signed by: Kelby Solomon M.D. 09/17/2019 10:20 AM
[2019-09-17] MEDS ORDERED: VANCOMYCIN TROUGH ONE (13:30)
--- NOTE | 2019-09-17 14:40 | Hospitalist Progress Note ---
Date of Service September 17, 2019 Assessment & Plan (1) Severe sepsis: 09/16/2019 ED notes "This is an 79-year-old male who has significant past medical history of CAD with ischemic cardiomyopathy, heart failure with reduced ejection fraction, SSS status post pacemaker, HTN, HLD, paroxysmal atrial fibrillation anticoagulated on warfarin, insulin-dependent T2DM, adrenal insufficiency, CKD stage III, PMR, hypothyroidism, diabetic neuropathy and nephropathy, depression with anxiety, BPH, vitamin D deficiency and GERD who presents to ED with a chief complaint of a fever. The patient was sent to the ED for evaluation of this. The patient was discharged from the hospital 4 days ago after being admitted for syncope." -as per admitting hospitalist "Patient meets criteria for severe sepsis, admitted with a fever chills/tachypnea/ leukocytosis-WBC 23K, elevated lactic acid" and Source of infection: Pulmonary: Chest x-ray Diffuse infiltrate left mid and lower lung. CT CT chest: Stable right hemithoracic infiltrate. Progressive left upper lobe infiltrate. -COVID-19 test negative -has been continued IV Zosyn and IV vancomcyin as started on admission, blood cultures no growth to date, WBC normalized on 09/17/2019 with chest X ray showing improvements ( Improving infiltrate left hemithorax. 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 steroid supplement Chronic CHF with systolic dysfunction: Echocardiogram on last admission 09/10/2019 showed EF ejection fraction of 40%, continue Aldactone and torsemide History of paroxysmal A. fib, on chronic anticoagulation with Coumadin Elevated Dimer on admission D-dimer 670 on admission 09/15/2019 with supratherapeutic INR of 3.9 on coumadin, INR is 1.9 on 09/17/2019, continue coumadin, scan leg to rule out DVT, if no DVT then can start SCDs Continue beta-alex, amiodarone CODE STATUS: Discussed with patient/full code Disposition: PT/OT evaluations Lives at home with daughter, social service consulted for discharge planning Admission and Anticipated Discharge Date Admission Date: September 15, 2019 Subjective patient on nasal cannula 4 liters/min but saturating well. He reports he was able to ambulate with physical therapy. no chest pain. no palpitations. no dizziness. no headache. no nausea. no vomiting. no chills Review of Systems Review of Systems: All systems reviewed & are unremarkable except as noted in Subjective Physical Exam Constitutional: comfortable Eyes: PERRL, conjunctivae normal, anicteric sclerae EOM intact bilaterally ENMT: external ear and nose normal, oropharynx normal Neck: trachea midline, no thyromegaly normal visual inspection Respiratory: normal respiratory effort, lungs clear to auscultation Cardiovascular: RRR, no murmur, no edema Gastrointestinal (Abdomen): normal bowel sounds, soft, nontender, no hepatosplenomegaly Musculoskeletal: Head/Neck/Chest: normocephalic and head atraumatic Neurologic: PERRL, EOMI, accommodation nl, no face palsy, no dysarthria CN's II-XI intact bilaterally Psychiatric: A+Ox3, euthymic affect Results & Data Results & Data ([facility]) Vital Signs (Past 12 Hours) Vital Signs Temp Pulse Pulse Resp BP Pulse Ox 09/17/19 11:13 36.9 C 70 17 150/70 H 98 09/17/19 08:50 67 09/17/19 07:56 36.3 C L 69 18 119/69 97 09/17/19 07:31 62 09/17/19 03:42 36.7 C 61 20 121/64 99 (1) LLL pneumonia Pneumonia type: due to unspecified organism Qualified Code(s): J18.9 - Pneumonia, unspecified organism
--- NOTE | 2019-09-17 15:51 | Ultrasound Report ---
US venous doppler LE BI HISTORY: Pain. Edema. rule out DVT COMPARISON STUDY: None. FINDINGS: There is normal compressibility, flow, and augmentation within the bilateral lower extremit y deep venous systems. IMPRESSION: No DVT within the right or left lower extremity. ACT 112: Negative or not required by law. The above report was generated using voice recognition software. It may contain grammatical, syntax or spelling errors. Electronically signed by: Kelby Solomon M.D. 09/17/2019 3:50 PM
[2019-09-17] MEDS ORDERED: WARFARIN SOD 2.5 MG TAB PO SCH (16:00)
[2019-09-17] MEDS: GABAPENTIN 300 MG CAP PO SCH (20:53)
[2019-09-17] MEDS: INSULIN GLARGINE SOLOSTAR 100 UNITS/ML 3 ML PEN SQ SCH (20:54)
[2019-09-17] MEDS: PRAVASTATIN SOD 40 MG TAB PO SCH (22:12)
[2019-09-18] MEDS: PIPERACILLIN/TAZOBACTAM 3.375 GM in DEXTROSE 5% 100 ML IV SCH ×2 (04:10→11:35)
[2019-09-18] MEDS: LEVOTHYROXINE SODIUM 75 MCG TABLET PO SCH (05:52)
[2019-09-18 06:06] LABS: Basophils # (auto) 0.01 K/uL (0-0.2); Basophils % (auto) 0.1 %; Eosinophils # (auto) 0.96 K/uL (0-0.5); Eosinophils % (auto) 12.1 %; Hematocrit (blood only) 29.1 % (42-52); Hemoglobin 9.2 g/dL (14.0-18.0); Immature Granulocytes # (auto) 0.02 K/uL (0.00-0.02); Immature Granulocytes % (auto) 0.3 %; Lymphocytes # (auto) 0.62 K/uL (1.2-3.4); Lymphocytes % (auto) 7.8 %; Mean Corpuscular Hemoglobin 26.2 pg (25-34); Mean Corpuscular Hgb Conc 31.6 g/dL (32-36); Mean Corpuscular Volume 82.9 fL (80-100); Mean Platelet Volume 10.1 fL (7.4-10.4); Monocytes # (auto) 0.68 K/uL (0.11-0.59); Monocytes % (auto) 8.6 %; Neutrophils # (auto) 5.66 K/uL (1.4-6.5); Neutrophils % (auto) 71.1 %; Platelet Count 290 K/uL (130-400); RDW Coefficient of Variation 17.2 % (11.5-14.5); RDW Standard Deviation 52.2 fL (36.4-46.3); Red Blood Count 3.51 M/uL (4.7-6.1); White Blood Count 7.95 K/uL (4.8-10.8)
[2019-09-18 06:45] LABS: BUN Creatinine Ratio 14.2 (10-20); Calcium 8.3 mg/dl (8.5-10.1); Creatinine Clr Calc Pharmacy 51.1 ml/min; Est GFR (Non-African American) 52.6; Potassium 3.5 mmol/L (3.5-5.1)
[2019-09-18] MEDS: PANTOprazole 40 MG TAB PO SCH (08:24)
[2019-09-18] MEDS: TORSEMIDE 10 MG TAB PO SCH (08:24)
[2019-09-18] MEDS: AMIODARONE 200 MG TAB PO SCH (08:25)
[2019-09-18] MEDS: METOPROLOL SUCC 25MG EXT REL TAB PO SCH (08:25)
[2019-09-18] MEDS: HYDROCORTISONE 10 MG TAB PO SCH (08:25)
[2019-09-18] MEDS: ESCITALOPRAM OXALATE 10 MG TAB PO SCH (08:25)
[2019-09-18] MEDS: FLUTICASONE/VILANTEROL 100/25MCG 14 PUFFS/INHALER INH SCH (08:25)
[2019-09-18] MEDS: CLOPIDOGREL BISULFATE 75 MG TAB PO SCH (08:25)
[2019-09-18] MEDS: POLYETHYLENE (MIRALAX) 17 GM PACK PO SCH ×2 (08:25→09:04)
--- NOTE | 2019-09-18 11:23 | XRay Report ---
XR chest 2V PA/lateral CLINICAL HISTORY: follow lung infiltrates pneumonia COMPARISON STUDY: 09/17/2019 FINDINGS: Parenchymal infiltrate left base considered stable. Small left effusion unchanged. Minimal atelectasis right base unchanged. IMPRESSION: No significant change in the prior study. Unchanged basilar infiltrate/atelectasis. ACT 112: Negative or not required by law. The above report was generated using voice recognition software. It may contain grammatical, syntax or spelling errors. Electronically signed by: Kelby Solomon M.D. 09/18/2019 11:22 AM
[2019-09-18] MEDS ORDERED: DOXYCYCLINE HYCLATE 100 MG CAP PO SCH (13:00)
--- NOTE | 2019-09-18 13:03 | Hospitalist Progress Note ---
Date of Service September 18, 2019 Assessment & Plan (1) Severe sepsis: 09/16/2019 ED notes "This is an 79-year-old male who has significant past medical history of CAD with ischemic cardiomyopathy, heart failure with reduced ejection fraction, SSS status post pacemaker, HTN, HLD, paroxysmal atrial fibrillation anticoagulated on warfarin, insulin-dependent T2DM, adrenal insufficiency, CKD stage III, PMR, hypothyroidism, diabetic neuropathy and nephropathy, depression with anxiety, BPH, vitamin D deficiency and GERD who presents to ED with a chief complaint of a fever. The patient was sent to the ED for evaluation of this. The patient was discharged from the hospital 4 days ago after being admitted for syncope." -as per admitting hospitalist "Patient meets criteria for severe sepsis, admitted with a fever chills/tachypnea/ leukocytosis-WBC 23K, elevated lactic acid" and Source of infection: Pulmonary: Chest x-ray Diffuse infiltrate left mid and lower lung. CT CT chest: Stable right hemithoracic infiltrate. Progressive left upper lobe infiltrate. -COVID-19 test negative -had been continued IV Zosyn and IV vancomcyin as started on admission, blood cultures no growth to date, WBC normalized on 09/17/2019 with chest X ray showing improvements ( Improving infiltrate left hemithorax. Small parenchymal infiltrate right base unchanged) and was then continued IV Zosyn alone on 09/17/2019 -09/18/2019: on room air, repeat CXR: Improving infiltrate left hemithorax. Small parenchymal infiltrate right base unchanged. WBC continues to be normalized. patient on room air with rest and ambulation discharge medication Augmentin (875-125 mcg) twice a day and Doxycycline 100 mg twice a day for 7 days sent electronically of [facility] [place] [id number] [place] [place] [address] Patient should have repeat CBC labs, INR level labs, and Chest X ray by primary care doctor. Patient will have CDs of hospital imaging on discharge 09/25/2019 3:10 PM Provider Kelby Neil MD Department [facility] 10/09/2019 1:30 PM Provider Jenelle Viera RN Department [facility] 10/16/2019 2:00 PM Provider Pacer Clinic [facility] Department Cardiology, [facility] 10/16/2019 2:30 PM Provider Yao Alcantar DO Department Cardiology, [facility] (2) LLL pneumonia: Left lung Pneumonia -Management as outlined above (3) Acute kidney injury: -Admitted with acute kidney injury with underlying CKD stage III, baseline creatinine 1.2, on admission creatinine 1.4 -was given IV fluids on admission -back to baseline creatinine by 09/16/2019, is 1.35 on 09/17/2019 likely because home diuretics being resumed. creatinine 1.27 on 09/17/29 (4) Type 2 diabetes mellitus: Type 2 diabetes mellitus with surgery specialist current use of insulin -Insulin sliding scale /continue basal Lantus (5) Adrenal insufficiency: Chronic, continue outpatient p.o. steroid supplement Chronic CHF with systolic dysfunction: Echocardiogram on last admission 09/10/2019 showed EF ejection fraction of 40%, continue Aldactone and torsemide History of paroxysmal A. fib, on chronic anticoagulation with Coumadin Elevated Dimer on admission D-dimer 670 on admission 09/15/2019 with supratherapeutic INR of 3.9 on coumadin, INR is 1.9 on 09/17/2019, continue coumadin, scan leg to rule out DVT, if no DVT then can start SCDs Continue beta-alex, amiodarone CODE STATUS: Discussed with patient/full code Disposition: PT/OT evaluations Lives at home with daughter, social service consulted for discharge planning Admission and Anticipated Discharge Date Admission Date: September 15, 2019 Subjective Patient doing well. ambulated on room air and at rest on room air without desaturation. no chest pain. no dizziness. no headache. no abdomen pain. no vomiting. no fevers. no chills. discharge plan discussed at length Review of Systems Review of Systems: All systems reviewed & are unremarkable except as noted in Subjective Physical Exam Constitutional: comfortable Eyes: PERRL, conjunctivae normal, anicteric sclerae EOM intact bilaterally ENMT: external ear and nose normal, oropharynx normal Neck: trachea midline, no thyromegaly normal visual inspection Respiratory: normal respiratory effort, lungs clear to auscultation Cardiovascular: RRR, no murmur, no edema Gastrointestinal (Abdomen): normal bowel sounds, soft, nontender, no hepatosplenomegaly Musculoskeletal: Head/Neck/Chest: normocephalic and head atraumatic Neurologic: PERRL, EOMI, accommodation nl, no face palsy, no dysarthria CN's II-XI intact bilaterally Psychiatric: A+Ox3, euthymic affect Results & Data Results & Data ([facility]) Vital Signs (Past 12 Hours) Vital Signs Temp Pulse Pulse Pulse Resp BP BP 09/18/19 12:00 36.5 C 72 18 146/82 H 09/18/19 08:59 61 09/18/19 07:43 36.6 C 69 18 135/48 L 09/18/19 04:00 36.4 C L 70 19 146/69 H 09/18/19 02:00 Pulse Ox 09/18/19 12:00 96 09/18/19 08:59 09/18/19 07:43 100 09/18/19 04:00 95 09/18/19 02:00 97 (1) LLL pneumonia Pneumonia type: due to unspecified organism Qualified Code(s): J18.9 - Pneumonia, unspecified organism
--- NOTE | 2019-09-18 13:04 | Discharge Summary ---
Date of Service September 18, 2019 Admission HPI Per Admitting Provider This is an 79-year-old male with complex past medical history of CAD with ischemic cardiomyopathy, heart failure with reduced ejection fraction, SSS status post pacemaker, HTN, HLD, paroxysmal atrial fibrillation anticoagulated on warfarin, insulin-dependent T2DM, adrenal insufficiency on chronic steroid, CKD stage III, PMR, hypothyroidism, diabetic neuropathy and nephropathy, Brought to ER-with complaint of fever chills, nonproductive cough Patient was recently admitted to [facility] due to syncope from 09/09/2019 to 09/11/2019 Patient reports he felt well last 2 to 3 days, this morning woke up with chills ,rigor, headache, mild shortness of breath, nonproductive cough, generalized weakness and body ache Patient lives with his daughter and son-in-law Not aware of any contact with COVID positive person Labs shows marketed leukocytosis with white count of 20 3K, elevated lactic acid, elevated d-dimer, chest x-ray shows bilateral infiltrate, Rapid COVID-19 test negative Principal Diagnosis Severe sepsis pneumonia of left lung, possible hospital acquired pneumonia, with possible bilateral lung involvement versus some component of chronic sytolic congestive heart failure Acute kidney injury, chronic kidney disease stage III paroxysmal Atrial fibrillation chronic anticoagulation with Coumadin Elevated Dimer on admission Type 2 diabetes mellitus with 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 use of insulin Discharge Exam Constitutional comfortable Eyes PERRL, conjunctivae normal, anicteric sclerae EOM intact bilaterally ENMT external ear and nose normal, oropharynx normal Neck trachea midline, no thyromegaly normal visual inspection Respiratory normal respiratory effort, lungs clear to auscultation Cardiovascular RRR, no murmur, no edema Gastrointestinal (Abdomen) normal bowel sounds, soft, nontender, no hepatosplenomegaly Musculoskeletal Head/Neck/Chest: normocephalic and head atraumatic Neurologic PERRL, EOMI, accommodation nl, no face palsy, no dysarthria CN's II-XI intact bilaterally Psychiatric A+Ox3, euthymic affect Discharge Data Allergies Allergy/AdvReac Type Severity Reaction Status Date / Time aspirin Allergy Unknown DOES NOT Verified 09/15/19 14:17 TAKE D/T ASTHMA citric acid AdvReac Verified 09/15/19 14:17 [From Erma-Jarad] NSAIDS (Non-Steroidal AdvReac Verified 09/15/19 14:17 Anti-Inflamma sodium bicarbonate AdvReac Verified 09/15/19 14:17 [From Robina] Consultations 09/15/19 14:30 ED Decision to Admit Stat 09/15/19 15:27 Consult Case Management - Discharge Planning Routine 09/18/19 12:58 Burn CD for patient Stat Ordered Studies 09/15/19 19:23 CT chest wo con Urgent 09/17/19 14:43 US venous doppler LE BI Routine Hospital Course (1) Severe sepsis: 09/16/2019 ED notes "This is an 79-year-old male who has significant past medical history of CAD with ischemic cardiomyopathy, heart failure with reduced ejection fraction, SSS status post pacemaker, HTN, HLD, paroxysmal atrial fibrillation anticoagulated on warfarin, insulin-dependent T2DM, adrenal insufficiency, CKD stage III, PMR, hypothyroidism, diabetic neuropathy and nephropathy, depression with anxiety, BPH, vitamin D deficiency and GERD who presents to ED with a chief complaint of a fever. The patient was sent to the ED for evaluation of this. The patient was discharged from the hospital 4 days ago after being admitted for syncope." -as per admitting hospitalist "Patient meets criteria for severe sepsis, admitted with a fever chills/tachypnea/ leukocytosis-WBC 23K, elevated lactic acid" and Source of infection: Pulmonary: Chest x-ray Diffuse infiltrate left mid and lower lung. CT CT chest: Stable right hemithoracic infiltrate. Progressive left upper lobe infiltrate. -COVID-19 test negative -had been continued IV Zosyn and IV vancomcyin as started on admission, blood cultures no growth to date, WBC normalized on 09/17/2019 with chest X ray showing improvements ( Improving infiltrate left hemithorax. Small parenchymal infiltrate right base unchanged) and was then continued IV Zosyn alone on 09/17/2019 -09/18/2019: on room air, repeat CXR: Improving infiltrate left hemithorax. Small parenchymal infiltrate right base unchanged. WBC continues to be normalized. patient on room air with rest and ambulation discharge medication Augmentin (875-125 mcg) twice a day and Doxycycline 100 mg twice a day for 7 days sent electronically of [facility] [address], [place] [address] Patient should have repeat CBC labs, INR level labs, and Chest X ray by primary care doctor. Patient will have CDs of hospital imaging on discharge 09/25/2019 3:10 PM Provider Kelby Neil MD Department [facility] 10/09/2019 1:30 PM Provider Jenelle Viera RN Department [facility] 10/16/2019 2:00 PM Provider Candace Brooks [facility] Department Cardiology, [facility] 10/16/2019 2:30 PM Provider Yao Alcantar DO Department Cardiology, [facility] (2) LLL pneumonia: Left lung Pneumonia -Management as outlined above (3) Acute kidney injury: -Admitted with acute kidney injury with underlying CKD stage III, baseline creatinine 1.2, on admission creatinine 1.4 -was given IV fluids on admission -back to baseline creatinine by 09/16/2019, is 1.35 on 09/17/2019 likely because home diuretics being resumed. creatinine 1.27 on 09/17/29 (4) Type 2 diabetes mellitus: Type 2 diabetes mellitus with group home current use of insulin -Insulin sliding scale /continue basal Lantus (5) Adrenal insufficiency: Chronic, continue outpatient p.o. steroid supplement Chronic CHF with systolic dysfunction: Echocardiogram on last admission 09/10/2019 showed EF ejection fraction of 40%, continue Aldactone and torsemide History of paroxysmal A. fib, on chronic anticoagulation with Coumadin Elevated Dimer on admission D-dimer 670 on admission 09/15/2019 with supratherapeutic INR of 3.9 on coumadin, INR is 1.9 on 09/17/2019, continue coumadin, scan leg to rule out DVT, if no DVT then can start SCDs Continue beta-alex, amiodarone CODE STATUS: Discussed with patient/full code Disposition: PT/OT evaluations Lives at home with daughter, social service consulted for discharge planning Total Time Total Time Spent Total Time Spent (In Minutes): 40 minutes Total Time Includes: Examination of the Patient, Discharge Planning, Medication Reconciliation and Communication With Other Providers Discharge Plan Discharge Items Patient Disposition: Home - Self-Care Reason For Visit: FEVER/COUGH Discharge Diagnosis: Severe sepsis pneumonia of left lung, possible hospital acquired pneumonia, with possible bilateral lung involvement versus some component of chronic sytolic congestive heart failure Acute kidney injury, chronic kidney disease stage III paroxysmal Atrial fibrillation chronic anticoagulation with Coumadin Elevated Dimer on admission Type 2 diabetes mellitus with 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 use of insulin Condition on Discharge: Good Activity: Resume your previous activity Non-emergency contact: Primary Care Provider Call non-emergency contact if: you have any medication questions Follow-up/Referrals: Steve Quintero MD [Primary Care Provider] - Diet: Carb Consistent or DM2 and Heart Healthy Addtl Attending Provider Instructions: discharge medication Augmentin (875-125 mcg) twice a day and Doxycycline 100 mg twice a day for 7 days [facility] [address] [place] [address] Patient should have repeat CBC labs, INR level labs, and Chest X ray by primary care doctor. Patient will have CDs of hospital imaging on discharge 09/25/2019 3:10 PM Provider Kelby Neil MD Department [facility] 10/09/2019 1:30 PM Provider Jenelle Viera RN Department [facility] 10/16/2019 2:00 PM Provider Pacer Clinic [facility] Department Cardiology, [facility] 10/16/2019 2:30 PM Provider Yoa Alcantar DO Department Cardiology, [facility] Pending Studies at Discharge: No Stand-Alone Forms: [facility] Integrated Ordering Systems, Smoking Cessation Medications and DC Order Prescriptions: New doxycycline hyclate 100 mg Capsule 100 mg PO BID 7 Days Qty: 14 RF: 0 amoxicillin-pot clavulanate [Augmentin] 875-125 mg Tablet 1 tab PO BIDM 7 Days Qty: 14 RF: 0 Continued gabapentin [Neurontin] 300 mg capsule 300 mg PO HS Qty: 90 RF: 3 (DME) OneTouch Ultra Blue Test Strip strip See Dose Instructions .ROUTE .MEDSUPPLY Qty: 200 RF: 5 Lantus Solostar U-100 Insulin 100 unit/mL (3 mL) insulin pen 25 units SQ HS Qty: 15 RF: 5 hydrocortisone 10 mg tablet 10 mg PO HS Qty: 90 RF: 3 pravastatin 40 mg tablet 40 mg PO HS Qty: 90 RF: 3 hydrocortisone 20 mg tablet 20 mg PO QAM Qty: 90 RF: 3 (DME) pen needle, diabetic [BD Mary 2nd Gen Pen Needle] 32 gauge x 5/32" needle See Dose Instructions .ROUTE .MEDSUPPLY Qty: 200 RF: 3 budesonide-formoterol 160-4.5 mcg/actuation HFA aerosol inhaler 2 puff Inhalation BID Qty: 10.2 RF: 5 clopidogrel 75 mg tablet 75 mg PO QAM Qty: 30 RF: 5 metoprolol succinate 25 mg tablet extended release 24 hr 25 mg PO QAM RF: 0 albuterol sulfate 90 mcg/actuation HFA aerosol inhaler 2 puff Inhalation QID PRN (Reason: Shortness Of Breath Or Wheezing) RF: 0 acetaminophen [Tylenol] 325 mg Tablet 325 mg PO Q6H PRN (Reason: Pain) RF: 0 torsemide 20 mg tablet 10 mg PO QAM RF: 0 amiodarone 200 mg tablet 200 mg PO QAM RF: 0 spironolactone 25 mg tablet 12.5 mg PO MOWEFR RF: 0 levothyroxine 75 mcg tablet 75 mcg PO QAM RF: 0 polyethylene glycol 3350 [Miralax] 17 gram Powder In Packet 17 g PO DAILY 30 Days Qty: 30 RF: 2 warfarin 2.5 mg tablet 2.5 mg PO MOWEFRSA RF: 0 zafirlukast 20 mg tablet 20 mg PO BID RF: 0 escitalopram oxalate 10 mg Tablet 10 mg PO DAILY RF: 0 warfarin 2.5 mg Tablet 1.25 mg PO SUTUTH RF: 0 omeprazole 20 mg Capsule,Delayed Release(Dr/Ec) 20 mg PO QAM RF: 0 Discharge Orders: Discharge Order (Routine); Ordered 09/18/19 Ordered By: Piter Medina Admission Data Admit Date/Time: 09/15/19 15:25 Attending Provider: Piter Medina Admit Provider: Roxana Coronado Primary Care Provider: Steve Quintero Other Providers: Roxana Coronado ; [facility]
[2019-09-18] MEDS ORDERED: AMOXICILLIN/CLAVULANATE 875 MG TAB PO SCH (17:00)
== END 2019-09-18 14:43 | disposition home health service (06) | DRG 871 ==
LOC: ED 11:53 → SUATTDRO 15:25 → 2N 15:25

== ENCOUNTER 2019-10-17 20:53 | Inpatient (IN) ==
[2019-10-17] MEDS ORDERED: SODIUM CHLORIDE 0.9% 1000ML 1,000 ML IV SCH (21:15)
[2019-10-17 21:28] LABS: Basophils # (auto) 0.03 K/uL (0-0.2); Basophils % (auto) 0.2 %; Eosinophils # (auto) 0.92 K/uL (0-0.5); Eosinophils % (auto) 7.3 %; Hematocrit (blood only) 33.6 % (42-52); Hemoglobin 10.4 g/dL (14.0-18.0); Immature Granulocytes # (auto) 0.08 K/uL (0.00-0.02); Immature Granulocytes % (auto) 0.6 %; Lymphocytes # (auto) 1.29 K/uL (1.2-3.4); Lymphocytes % (auto) 10.2 %; Mean Corpuscular Hemoglobin 24.3 pg (25-34); Mean Corpuscular Volume 78.5 fL (80-100); Mean Platelet Volume 10.3 fL (7.4-10.4); Monocytes % (auto) 9.5 %; Neutrophils # (auto) 9.12 K/uL (1.4-6.5); Neutrophils % (auto) 72.2 %; Platelet Count 372 K/uL (130-400); RDW Standard Deviation 48.8 fL (36.4-46.3); Red Blood Count 4.28 M/uL (4.7-6.1); White Blood Count 12.64 K/uL (4.8-10.8)
[2019-10-17 21:38] LABS: INR 2.7 (0.9-1.1); Prothrombin Time 26.6 Seconds (9.0-12.0)
--- NOTE | 2019-10-17 21:43 | Emergency Department Note ---
History of Present Illness General Chief complaint: Illness Stated complaint: NAUSEA, DIAPHORATIC, HEAT EXHAUST Time Seen by Provider: 10/17/19 20:55 Source: patient Mode of arrival: EMS Limitations: no limitations History of Present Illness Provider complaint: Syncopal episode Onset (ago): hour(s) Associated symptoms: + diaphoresis, + headaches, + loss of appetite, + nausea/vomiting and + syncope This is an 79-year-old male who presents via EMS from home after syncopal event. Per EMS patient was outside in the garden when family noticed he began swaying back and forth and were concerned he was going to fall. Patient fell to the ground in his garden and was unconscious for several minutes according to family members. No seizure-like activity was noted. They called 911. EMS states on their arrival, patient was alert, slightly confused, and profusely diaphoretic. In route patient continued to have diaphoresis, was given Zofran for nausea, and had no complaints of chest pain or trouble breathing. Patient did not recall any prodromal symptoms at that time. On arrival here patient awake and alert, appropriate and able to answer all questions. Patient does not appear diaphoretic at this time. Patient states he just saw his senior net architect Dr. Alcantar yesterday in the office, there was an adjustment made to 1 of his medications. Patient denies any other recent illness. Patient states he has had similar episodes previously and no one's been able to tell him why. Patient does have a pacemaker. Patient denies any other change in diet. Patient states he was feeling well in his usual state of health earlier today. Patient does not recall feeling any symptoms when he was walking outside to begin laying out of hose in the garden. Paperwork given to EMS from family shows that patient's amiodarone was changed at his appointment yesterday. Patient's medication sheet also shows he takes Coumadin and Plavix. Pt seen during a time of high acuity and national emergency pandemic while wearing PPE. Home Medications Home Medications Medication Instructions Recorded Confirmed Type albuterol sulfate 2 puff INHALATION QID PRN 01/30/18 10/17/19 History metoprolol succinate 25 mg PO QAM 01/30/18 10/17/19 History omeprazole 20 mg PO QAM 07/25/18 10/17/19 History gabapentin 300 mg capsule 300 mg PO HS #90 cap 11/10/18 10/17/19 Rx acetaminophen [Tylenol] 325 mg PO Q6H PRN 11/23/18 10/17/19 History blood sugar diagnostic #200 ea 12/04/18 12/25/18 Rx insulin glargine 100 unit/mL (3 25 units SQ HS #15 ml 01/17/19 10/17/19 Rx mL) subcutaneous pen amiodarone 200 mg PO BID 02/20/19 10/17/19 History levothyroxine 75 mcg PO QAM 02/20/19 10/17/19 History spironolactone 12.5 mg PO MOWEFR 02/20/19 10/17/19 History torsemide 10 mg PO QAM 02/20/19 10/17/19 History polyethylene glycol 3350 [Miralax] 17 g PO DAILY 30 Days #30 ea 02/24/19 10/17/19 Rx pravastatin 40 mg tablet 40 mg PO HS #90 tab 05/07/19 10/17/19 Rx pen needle, diabetic 32 gauge x #200 ea 05/28/19 Rx 5/32" budesonide-formoterol HFA 160 2 puff INHALATION BID #10.2 gm 05/31/19 10/17/19 Rx mcg-4.5 mcg/actuation aerosol inhaler clopidogrel 75 mg tablet 75 mg PO QAM #30 tab 08/01/19 10/17/19 Rx escitalopram oxalate 10 mg PO DAILY 09/09/19 10/17/19 History warfarin 1.25 mg PO SUTUTH 09/09/19 10/17/19 History warfarin 2.5 mg PO MOWEFRSA 09/09/19 10/17/19 History zafirlukast 20 mg PO BID 09/09/19 10/17/19 History Allergies Allergy/AdvReac Type Severity Reaction Status Date / Time aspirin Allergy Unknown DOES NOT Verified 10/17/19 23:24 TAKE D/T ASTHMA citric acid AdvReac Unknown Verified 10/17/19 23:24 [From Robina] NSAIDS (Non-Steroidal AdvReac Unknown Verified 10/17/19 23:24 Anti-Inflamma sodium bicarbonate AdvReac Unknown Verified 10/17/19 23:24 [From Robina] 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) Coronary artery disease (Chronic) multi-vessel disease - medical management Depression (Chronic) Diabetic neuropathy (Chronic) GERD (gastroesophageal reflux disease) (Chronic) Tena's thyroiditis (Chronic) History of non-ST elevation myocardial infarction (NSTEMI) (Resolved) Hyperlipidemia (Chronic) Hypertension (Chronic) Mural thrombus of heart (Acute) Noted on echo November 2018 Pacemaker (Chronic) dual chamber Paroxysmal atrial tachycardia (Chronic) Polymyalgia rheumatica (Chronic) Sick sinus syndrome (Chronic) Type 2 diabetes mellitus (Chronic) Vitamin D deficiency (Chronic) Surgical History History of temporal artery biopsy Family History Father Stroke Other Family history non-contributory Social History Smoking Status: Never smoker Second Hand Exposure: No; Do You Dip or Chew Tobacco: No; Tobacco Cessation Education Requested by Patient: No Hx Alcohol Use: No Hx Substance Use: No Preferred Language: Bruneian Communication Ability: Effective Residential Construction Instructor Required: No Beliefs That Will Affect Care: None marital status: Unknown Current Living Situation: Family Current Living Situation Comment: DAUGHTER AND HER Other Information That Helps Us Care for You: No Feels Safe at Home: Yes Safety Concerns: Feels Safe At This Time caffeine: Yes Seatbelt Use: always Review of Systems See HPI for pertinent positives & negatives. and A total of 10 systems reviewed and were otherwise negative Physical Exam Vital Signs Vital Signs - 24 hr 10/19/19 07:58 10/19/19 11:37 10/19/19 11:54 Temperature 36.3 C L 37.1 C Temperature Source Oral Oral Pulse Rate 61 Pulse Rate [Right Finger] 98 H 73 Respiratory Rate 22 20 Blood Pressure [Right Arm] 121/50 L 114/65 Blood Pressure Mean [Right Arm] 73 81 Blood Pressure Position [Right Arm] Sitting Lying Pulse Oximetry 91 97 Oxygen Delivery Method Room Air Room Air GENERAL: alert, well appearing, well nourished, no distress, non-toxic EYE EXAM: normal conjunctiva, PERRL and EOM's grossly intact, exotropia noted OROPHARYNX: no exudate, no erythema, lips, buccal mucosa, and tongue normal and mucous membranes are moist NECK: supple, no nuchal rigidity, no adenopathy, non-tender LUNGS: Clear to auscultation. Normal chest wall mechanics, no w/r/r HEART: no murmurs, S1 normal and S2 normal, well-healed scar from pacemaker pl acement noted in the left anterior superior chest wall ABDOMEN: abdomen soft, non-tender, normo-active bowel sounds, no masses, no rebound or guarding. BACK: Back is symmetrical on inspection and there is no deformity, no midline tenderness, no CVA tenderness. SKIN: no rashes and no bruising UPPER EXTREMITIES: upper extremities are grossly normal. FROM, nml pulses b/l. LOWER EXTREMITIES: Trace pitting edema. FROM, nml pulses b/l. NEURO EXAM: Normal sensorium, cranial nerves II-XII grossly intact, normal speech, no gross weakness of arms, no gross weakness of legs. Gross sensation intact. Course Course 2300: Updated patient and daughter at bedside on results. They in agreement with plan for additional inpatient monitoring. Patient states he feels almost back to normal at this time. 2330: Case discussed with Dr. Ribeiro. 2340: Nurse received call from [employer] rep who is faxing over interrogation results. Pt has several min of V.tach at 1848. 2350: Discussed with Dr. Alcantar. Agrees with plan for amiodarone bolus of 150 mg followed by a drip. Will place fax copy from [employer] on the chart. Dr. Ribeiro was updated on this discussion as well. Administered Medications Amiodarone HCl (Cordarone) 200 mg PO BID KATHLEEN Stop: 11/17/19 08:59 Last Admin: 10/19/19 21:25 Dose: 200 mg Documented by: [id number] Admin: 10/19/19 08:40 Dose: 200 mg Documented by: [id number] Admin: 10/18/19 21:45 Dose: 200 mg Documented by: [id number] Admin: 10/18/19 08:31 Dose: 200 mg Documented by: [id number] Clopidogrel Bisulfate (Plavix) 75 mg PO QAM [facility] Stop: 11/17/19 08:59 Last Admin: 10/19/19 08:41 Dose: 75 mg Documented by: [id number] Admin: 10/18/19 10:46 Dose: 75 mg Documented by: [id number] Escitalopram Oxalate (Lexapro Tab) 10 mg PO DAILY [facility] Stop: 11/17/19 08:59 Last Admin: 10/19/19 08:41 Dose: 10 mg Documented by: [id number] Admin: 10/18/19 08:33 Dose: 10 mg Documented by: [id number] Fluticasone/Vilanterol (Breo Ellipta 100/25 Mcg Inh) 1 puffs INH DAILY [facility] Stop: 11/17/19 08:59 Last Admin: 10/19/19 08:40 Dose: 1 puffs Documented by: [id number] Admin: 10/18/19 08:34 Dose: 1 puffs Documented by: [id number] Gabapentin (Neurontin) 300 mg PO HS [facility] Stop: 11/17/19 20:59 Last Admin: 10/19/19 21:26 Dose: 300 mg Documented by: [id number] Admin: 10/18/19 21:45 Dose: 300 mg Documented by: [id number] Heparin Sodium (Porcine) (Heparin Sodium (Porcine)) 5,000 units SQ Q12 [facility] Stop: 11/18/19 08:59 Last Admin: 10/19/19 21:25 Dose: Not Given Documented by: [id number] Admin: 10/19/19 08:38 Dose: 5,000 units Documented by: [id number] Cosigned by: [id number] Ampicillin Sodium/Sulbactam Sodium 1,500 mg/ Sodium Chloride 104 mls @ 200 mls/hr IV Q6H [facility]; Protocol Stop: 10/28/19 16:59 Last Infusion: 10/20/19 06:40 Dose: 0 mls/hr Documented by: [id number] Admin: 10/20/19 05:47 Dose: 200 mls/hr Documented by: [id number] Infusion: 10/19/19 23:03 Dose: 0 mls/hr Documented by: [id number] Admin: 10/19/19 22:24 Dose: 200 mls/hr Documented by: [id number] Infusion: 10/19/19 18:00 Dose: 0 mls/hr Documented by: [id number] Admin: 10/19/19 17:16 Dose: 200 mls/hr Documented by: [id number] Infusion: 10/19/19 12:09 Dose: 0 mls/hr Documented by: [id number] Admin: 10/19/19 11:20 Dose: 200 mls/hr Documented by: [id number] Infusion: 10/19/19 06:03 Dose: 0 mls/hr Documented by: [id number] Admin: 10/19/19 05:28 Dose: 200 mls/hr Documented by: [id number] Infusion: 10/19/19 00:07 Dose: 0 mls/hr Documented by: [id number] Admin: 10/18/19 23:15 Dose: 200 mls/hr Documented by: [id number] Infusion: 10/18/19 17:52 Dose: 0 mls/hr Documented by: [id number] Admin: 10/18/19 17:02 Dose: 200 mls/hr Documented by: [id number] Insulin Aspart (Novolog Flexpen) 0 units SC ACHS KATHLEEN Stop: 11/18/19 07:29 Last Admin: 10/19/19 21:23 Dose: 1 units Documented by: [id number] Cosigned by: [id number] Admin: 10/19/19 17:11 Dose: Not Given Documented by: [id number] Cosigned by: [id number] Admin: 10/19/19 12:09 Dose: Not Given Documented by: [id number] Cosigned by: [id number] Admin: 10/19/19 08:35 Dose: 2 units Documented by: [id number] Cosigned by: [id number] Insulin Glargine (Lantus Solostar Pen) 5 units SC BID KATHLEEN Stop: 11/17/19 08:59 Last Admin: 10/19/19 21:23 Dose: 5 units Documented by: [id number] Cosigned by: [id number] Admin: 10/19/19 08:36 Dose: 5 units Documented by: [id number] Cosigned by: [id number] Admin: 10/18/19 21:45 Dose: 5 units Documented by: [id number] Cosigned by: [id number] Admin: 10/18/19 08:33 Dose: 5 units Documented by: [id number] Cosigned by: [id number] Levothyroxine Sodium (Synthroid) 75 mcg PO DAILYBB KATHLEEN Stop: 11/17/19 06:29 Last Admin: 10/20/19 05:47 Dose: 75 mcg Documented by: [id number] Admin: 10/19/19 05:57 Dose: 75 mcg Documented by: [id number] Admin: 10/18/19 06:01 Dose: 75 mcg Documented by: [id number] [facility]op[facility]ol Su[facility] ([facility] Xl) [facility] Stop: 11/17/19 08:59 Last Admin: 10/19/19 08:41 Dose: 25 mg Documented by: [id number] Admin: 10/18/19 08:32 Dose: Not Given Documented by: [id number] Metoprolol Succinate (Toprol Xl) 12.5 mg PO [facility] Stop: 11/17/19 20:59 Last Admin: 10/19/19 21:26 Dose: 12.5 mg Documented by: [id number] Admin: 10/18/19 21:45 Dose: 12.5 mg Documented by: [id number] Miscellaneous (Order Awaiting Action) 1 ea N/A QS [facility] Stop: 11/17/19 01:44 Last Admin: 10/19/19 23:49 Dose: Not Given Documented by: [id number] Admin: 10/19/19 17:11 Dose: Not Given Documented by: [id number] Admin: 10/19/19 08:40 Dose: Not Given Documented by: [id number] Admin: 10/19/19 01:57 Dose: Not Given Documented by: [id number] Admin: 10/18/19 17:02 Dose: Not Given Documented by: [id number] Admin: 10/18/19 08:31 Dose: Not Given Documented by: [id number] Admin: 10/18/19 01:57 Dose: Not Given Documented by: [id number] Pantoprazole Sodium (Protonix) 40 mg PO [facility] Stop: 11/17/19 08:59 Last Admin: 10/19/19 08:41 Dose: 40 mg Documented by: [id number] Admin: 10/18/19 08:32 Dose: 40 mg Documented by: [id number] Polyethylene Glycol (Miralax Powder Packet) 17 gm PO DAILY [facility] Stop: 11/17/19 08:59 Last Admin: 10/19/19 08:44 Dose: 17 gm Documented by: [id number] Admin: 10/18/19 08:39 Dose: Not Given Documented by: [id number] Pravastatin Sodium (Pravachol) 40 mg PO [facility] Stop: 11/17/19 20:59 Last Admin: 10/19/19 21:26 Dose: 40 mg Documented by: [id number] Admin: 10/18/19 21:45 Dose: 40 mg Documented by: [id number] Discontinued Medications Amiodarone HCl (Cordarone Iv Bolus & Drip) 1 ea IV NOW STA; Protocol Stop: 10/17/19 23:54 Last Admin: 10/18/19 00:34 Dose: Not Given Documented by: [id number] Bacitracin (Bacitracin) Confirm Administered Dose 1 appln .ROUTE .STK-MED ONE Stop: 10/19/19 13:49 Last Admin: 10/19/19 15:32 Dose: 1 appln Documented by: [id number] Bacitracin (Bacitracin) Confirm Administered Dose 50,000 units .ROUTE .STK-MED ONE Stop: 10/19/19 13:49 Last Admin: 10/19/19 15:32 Dose: 50,000 units Documented by: [id number] Cefazolin Sodium (Ancef) Confirm Administered Dose 2,000 mg .ROUTE .STK-MED ONE Stop: 10/19/19 14:21 Last Admin: 10/19/19 14:45 Dose: 2,000 mg Documented by: [id number] Fentanyl Citrate (Fentanyl Citrate) Confirm Administered Dose 100 mcg .ROUTE .STK-MED ONE Stop: 10/19/19 14:20 Last Admin: 10/19/19 15:32 Dose: 50 mcg Documented by: [id number] Sodium Chloride (Nss 1000ml) 1,000 mls @ 100 mls/hr IV .Q10H KATHLEEN Stop: 11/16/19 21:14 Last Infusion: 10/18/19 01:52 Dose: 0 mls/hr Documented by: [id number] Admin: 10/17/19 21:13 Dose: 100 mls/hr Documented by: [id number] Amiodarone HCl/Dextrose (Nexterone / D5w) 150 mg in 100 mls @ 600 mls/hr IV NOW STA Stop: 10/18/19 00:02 Last Infusion: 10/18/19 00:26 Dose: 0 mls/hr Documented by: [id number] Cosigned by: [id number] Admin: 10/18/19 00:15 Dose: 600 mls/hr Documented by: [id number] Cosigned by: [id number] Amiodarone HCl/Dextrose (Nexterone / D5w) 360 mg in 200 mls @ 33.333 mls/hr IV ONE ONE Stop: 10/18/19 05:52 Last Infusion: 10/18/19 05:59 Dose: 0 mls/hr Documented by: [id number] Cosigned by: [id number] Admin: 10/18/19 00:28 Dose: 33.3 mls/hr Documented by: [id number] Cosigned by: [id number] Amiodarone HCl/Dextrose (Nexterone / D5w) 360 mg in 200 mls @ 16.667 mls/hr IV .Q12H KATHLEEN Stop: 11/17/19 05:55 Last Infusion: 10/18/19 10:42 Dose: 0 mg/min, 0 mls/hr Documented by: [id number] Cosigned by: [id number] Admin: 10/18/19 05:59 Dose: 0.5 mg/min, 16.7 mls/hr Documented by: [id number] Cosigned by: [id number] Sodium Chloride (Nss 1000ml) 1,000 mls @ 60 mls/hr IV .[id number] KATHLEEN Stop: 11/17/19 01:21 Last Infusion: 10/18/19 17:01 Dose: 0 mls/hr Documented by: [id number] Admin: 10/18/19 01:55 Dose: 60 mls/hr Documented by: [id number] Insulin Aspart (Novolog Flexpen) 0 units SC Q6 KATHLEEN Stop: 11/17/19 01:44 Last Admin: 10/19/19 06:28 Dose: Not Given Documented by: [id number] Cosigned by: [id number] Admin: 10/19/19 00:00 Dose: Not Given Documented by: [id number] Cosigned by: [id number] Admin: 10/18/19 17:03 Dose: 5 units Documented by: [id number] Cosigned by: [id number] Admin: 10/18/19 11:56 Dose: 1 units Documented by: [id number] Cosigned by: [id number] Admin: 10/18/19 06:00 Dose: Not Given Documented by: [id number] Cosigned by: [id number] Admin: 10/18/19 01:55 Dose: 1 units Documented by: [id number] Cosigned by: [id number] Insulin Glargine (Lantus Solostar Pen) 5 units SC NOW STA Stop: 10/18/19 01:23 Last Admin: 10/18/19 01:56 Dose: 5 units Documented by: [id number] Cosigned by: [id number] Lidocaine HCl (Xylocaine 1% (Local)) Confirm Administered Dose 40 ml .ROUTE .STK-MED ONE Stop: 10/19/19 13:49 Last Admin: 10/19/19 14:45 Dose: 40 ml Documented by: [id number] Midazolam HCl (Versed) Confirm Administered Dose 2 mg .ROUTE .STK-MED ONE Stop: 10/19/19 14:20 Last Admin: 10/19/19 14:56 Dose: 2 mg Documented by: [id number] Miscellaneous () 1 ea N/A NOW STA Stop: 10/17/19 23:54 Last Admin: 10/19/19 01:57 Dose: Not Given Documented by: [id number] Critical Care Time Critical Care Time: Yes Total Critical Care Time: 43 Critical care of 43 min performed to assess and manage high likelihood of life- threatening syncope and dysrhythmia, involving labs/imaging performed with assessment to evaluate syncope and v.tach diagnosis with frequent reassessment. This time includes bedside time, treatment discussions with ciaran ent/family/consultants, documentation time and excludes procedure time. Medical Decision Making Differential Diagnosis Differential diagnosis includes etiologies such as vasovagal event, infection, hypoglycemia, electrolyte abnormalities, cardiac sources, intracerebral event, toxicologic, neurologic, as well as others were entertained. Medical Records Attestation: I reviewed the patient's medical records. Home Medications Current Medication List: was personally reviewed by me Laboratory Data Attestation: I reviewed the patient's lab results. Result diagrams: 10/20/19 05:40 10/20/19 05:40 Lab Results 10/17/19 10/17/19 10/17/19 Range/Units 21:10 21:10 21:10 WBC 12.64 H (4.8-10.8) K/uL RBC 4.28 L (4.7-6.1) M/uL Hgb 10.4 L (14.0-18.0) g/dL Hct 33.6 L (42-52) % MCV 78.5 L (80-100) fL MCH 24.3 L (25-34) pg MCHC 31.0 L (32-36) g/dL RDW Std Deviation 48.8 H (36.4-46.3) fL RDW Coeff of Andrew 17.0 H (11.5-14.5) % Plt Count 372 (130-400) K/uL MPV 10.3 (7.4-10.4) fL Immature Gran % (Auto) 0.6 % Neut % (Auto) 72.2 % Lymph % (Auto) 10.2 % Louisa % (Auto) 9.5 % Eos % (Auto) 7.3 % Baso % (Auto) 0.2 % Neut # (Auto) 9.12 H (1.4-6.5) K/uL Lymph # (Auto) 1.29 (1.2-3.4) K/uL [place]a # (Auto) 1.20 H (0.11-0.59) K/uL Eos # (Auto) 0.92 H (0-0.5) K/uL Baso # (Auto) 0.03 (0-0.2) K/uL Immature Gran # (Auto) 0.08 H (0.00-0.02) K/uL PT 26.6 H (9.0-12.0) Seconds INR 2.7 H (0.9-1.1) Sodium 139 (136-145) mmol/L Potassium 4.6 (3.5-5.1) mmol/L Chloride 107 (98-107) mmol/L Carbon Dioxide 23 (21-32) mmol/L Anion Gap 8.0 (3-11) BUN 23 H (7-18) mg/dl Creatinine 1.63 H (0.6-1.4) mg/dl Est Cr Clr Drug Dosing 40.5 ml/min Est GFR ( Amer) 45.1 Est GFR (Non-Af Amer) 38.9 BUN/Creatinine Ratio 14.2 (10-20) Glucose 201 H (70-99) mg/dl POC Glucose (70-99) mg/dl Calcium 9.2 (8.5-10.1) mg/dl Magnesium 2.2 (1.8-2.4) mg/dl Total Bilirubin 0.3 (0.2-1) mg/dl AST 31 (15-37) U/L ALT 30 (12-78) U/L Alkaline Phosphatase 111 (45-117) U/L Total Creatine Kinase 77 (39-308) U/L Troponin I 0.017 (0-0.045) ng/ml NT-Pro-B Natriuret Pep 7930 H (0-1800) pg/ml Total Protein 7.8 (6.4-8.2) gm/dl Albumin 3.2 L (3.4-5.0) gm/dl Globulin 4.6 H (2.5-4.0) gm/dl Albumin/Globulin Ratio 0.7 L (0.9-2) Lipase 180 (73-393) U/L TSH 3.120 (0.300-4.500) uIu/ml Urine Color Urine Appearance (Clear) Urine pH (4.5-7.5) Ur Specific [place] (1.000-1.030) Urine Protein (Negative) Urine Glucose (UA) (Negative) Urine Ketones (Negative) Urine Blood (Negative) Urine Nitrite (Negative) Urine Bilirubin (Negative) Urine Urobilinogen (Negative) Ur Leukocyte Esterase (Negative) 10/18/19 10/18/19 10/18/19 Range/Units 01:29 03:50 05:59 WBC (4.8-10.8) K/uL RBC (4.7-6.1) M/uL Hgb (14.0-18.0) g/dL Hct (42-52) % MCV (80-100) fL MCH (25-34) pg MCHC (32-36) g/dL RDW Std Deviation (36.4-46.3) fL RDW Coeff of Andrew (11.5-14.5) % Plt Count (130-400) K/uL MPV (7.4-10.4) fL Immature Gran % (Auto) % Neut % (Auto) % Lymph % (Auto) % Louisa % (Auto) % Eos % (Auto) % Baso % (Auto) % Neut # (Auto) (1.4-6.5) K/uL Lymph # (Auto) (1.2-3.4) K/uL [place] # (Auto) (0.11-0.59) K/uL Eos # (Auto) (0-0.5) K/uL Baso # (Auto) (0-0.2) K/uL Immature Gran # (Auto) (0.00-0.02) K/uL PT (9.0-12.0) Seconds INR (0.9-1.1) Sodium (136-145) mmol/L Potassium (3.5-5.1) mmol/L Chloride (98-107) mmol/L Carbon Dioxide (21-32) mmol/L Anion Gap (3-11) BUN (7-18) mg/dl Creatinine (0.6-1.4) mg/dl Est Cr Clr Drug Dosing ml/min Est GFR ( Amer) Est GFR (Non-Af Amer) BUN/Creatinine Ratio (10-20) Glucose (70-99) mg/dl POC Glucose 184 H 163 H (70-99) mg/dl Calcium (8.5-10.1) mg/dl Magnesium (1.8-2.4) mg/dl Total Bilirubin (0.2-1) mg/dl AST (15-37) U/L ALT (12-78) U/L Alkaline Phosphatase (45-117) U/L Total Creatine Kinase (39-308) U/L Troponin I (0-0.045) ng/ml NT-Pro-B Natriuret Pep (0-1800) pg/ml Total Protein (6.4-8.2) gm/dl Albumin (3.4-5.0) gm/dl Globulin (2.5-4.0) gm/dl Albumin/Globulin Ratio (0.9-2) Lipase (73-393) U/L TSH (0.300-4.500) uIu/ml Urine Color Yellow Urine Appearance Clear (Clear) Urine pH 5.0 (4.5-7.5) Ur Specific [place] 1.022 (1.000-1.030) Urine Protein Negative (Negative) Urine Glucose (UA) Negative (Negative) Urine Ketones Negative (Negative) Urine Blood Negative (Negative) Urine Nitrite Negative (Negative) Urine Bilirubin Negative (Negative) Urine Urobilinogen Negative (Negative) Ur Leukocyte Esterase Negative (Negative) 10/18/19 10/18/19 10/18/19 Range/Units 07:15 07:20 07:20 WBC 9.22 (4.8-10.8) K/uL RBC 3.85 L (4.7-6.1) M/uL Hgb 9.2 L (14.0-18.0) g/dL Hct 30.6 L (42-52) % MCV 79.5 L (80-100) fL MCH 23.9 L (25-34) pg MCHC 30.1 L (32-36) g/dL RDW Std Deviation 49.3 H (36.4-46.3) fL RDW Coeff of Andrew 17.0 H (11.5-14.5) % Plt Count 314 (130-400) K/uL MPV 10.4 (7.4-10.4) fL Immature Gran % (Auto) 0.5 % Neut % (Auto) 64.9 % Lymph % (Auto) 16.2 % Louis[place] % (Auto) 8.9 % Eos % (Auto) 9.3 % Baso % (Auto) 0.2 % Neut # (Auto) 5.98 (1.4-6.5) K/uL Lymph # (Auto) 1.49 (1.2-3.4) K/uL [place] # (Auto) 0.82 H (0.11-0.59) K/uL Eos # (Auto) 0.86 H (0-0.5) K/uL Baso # (Auto) 0.02 (0-0.2) K/uL Immature Gran # (Auto) 0.05 H (0.00-0.02) K/uL PT (9.0-12.0) Seconds INR (0.9-1.1) Sodium 142 (136-145) mmol/L Potassium 4.2 (3.5-5.1) mmol/L Chloride 111 H (98-107) mmol/L Carbon Dioxide 27 (21-32) mmol/L Anion Gap 4.0 (3-11) BUN 23 H (7-18) mg/dl Creatinine 1.21 D (0.6-1.4) mg/dl Est Cr Clr Drug Dosing 53.7 ml/min Est GFR ( Amer) 64.7 Est GFR (Non-Af Amer) 55.8 BUN/Creatinine Ratio 18.7 (10-20) Glucose 155 H (70-99) mg/dl POC Glucose 148 H (70-99) mg/dl Calcium 7.8 L D (8.5-10.1) mg/dl Magnesium (1.8-2.4) mg/dl Total Bilirubin (0.2-1) mg/dl AST (15-37) U/L ALT (12-78) U/L Alkaline Phosphatase (45-117) U/L Total Creatine Kinase (39-308) U/L Troponin I (0-0.045) ng/ml NT-Pro-B Natriuret Pep (0-1800) pg/ml Total Protein (6.4-8.2) gm/dl Albumin (3.4-5.0) gm/dl Globulin (2.5-4.0) gm/dl Albumin/Globulin Ratio (0.9-2) Lipase (73-393) U/L TSH (0.300-4.500) uIu/ml Urine Color Urine Appearance (Clear) Urine pH (4.5-7.5) Ur Specific [place] (1.000-1.030) Urine Protein (Negative) Urine Glucose (UA) (Negative) Urine Ketones (Negative) Urine Blood (Negative) Urine Nitrite (Negative) Urine Bilirubin (Negative) Urine Urobilinogen (Negative) Ur Leukocyte Esterase (Negative) 10/18/19 10/18/19 10/18/19 Range/Units 07:20 11:13 16:27 WBC (4.8-10.8) K/uL RBC (4.7-6.1) M/uL Hgb (14.0-18.0) g/dL Hct (42-52) % MCV (80-100) fL MCH (25-34) pg MCHC (32-36) g/dL RDW Std Deviation (36.4-46.3) fL RDW Coeff of Andrew (11.5-14.5) % Plt Count (130-400) K/uL MPV (7.4-10.4) fL Immature Gran % (Auto) % Neut % (Auto) % Lymph % (Auto) % Louisa % (Auto) % Eos % (Auto) % Baso % (Auto) % Neut # (Auto) (1.4-6.5) K/uL Lymph # (Auto) (1.2-3.4) K/uL Louisa # (Auto) (0.11-0.59) K/uL Eos # (Auto) (0-0.5) K/uL Baso # (Auto) (0-0.2) K/uL Immature Gran # (Auto) (0.00-0.02) K/uL PT 24.6 H (9.0-12.0) Seconds INR 2.4 H (0.9-1.1) Sodium (136-145) mmol/L Potassium (3.5-5.1) mmol/L Chloride (98-107) mmol/L Carbon Dioxide (21-32) mmol/L Anion Gap (3-11) BUN (7-18) mg/dl Creatinine (0.6-1.4) mg/dl Est Cr Clr Drug Dosing ml/min Est GFR ( Amer) Est GFR (Non-Af Amer) BUN/Creatinine Ratio (10-20) Glucose (70-99) mg/dl POC Glucose 127 H 121 H (70-99) mg/dl Calcium (8.5-10.1) mg/dl Magnesium (1.8-2.4) mg/dl Total Bilirubin (0.2-1) mg/dl AST (15-37) U/L ALT (12-78) U/L Alkaline Phosphatase (45-117) U/L Total Creatine Kinase (39-308) U/L Troponin I (0-0.045) ng/ml NT-Pro-B Natriuret Pep (0-1800) pg/ml Total Protein (6.4-8.2) gm/dl Albumin (3.4-5.0) gm/dl Globulin (2.5-4.0) gm/dl Albumin/Globulin Ratio (0.9-2) Lipase (73-393) U/L TSH (0.300-4.500) uIu/ml Urine Color Urine Appearance (Clear) Urine pH (4.5-7.5) Ur Specific [place] (1.000-1.030) Urine Protein (Negative) Urine Glucose (UA) (Negative) Urine Ketones (Negative) Urine Blood (Negative) Urine Nitrite (Negative) Urine Bilirubin (Negative) Urine Urobilinogen (Negative) Ur Leukocyte Esterase (Negative) 10/18/19 10/19/19 10/19/19 Range/Units 20:44 00:04 05:53 WBC 10.32 (4.8-10.8) K/uL RBC 3.94 L (4.7-6.1) M/uL Hgb 9.3 L (14.0-18.0) g/dL Hct 31.2 L (42-52) % MCV 79.2 L (80-100) fL MCH 23.6 L (25-34) pg MCHC 29.8 L (32-36) g/dL RDW Std Deviation 49.7 H (36.4-46.3) fL RDW Coeff of Andrew 17.0 H (11.5-14.5) % Plt Count 327 (130-400) K/uL MPV 10.7 H (7.4-10.4) fL Immature Gran % (Auto) % Neut % (Auto) % Lymph % (Auto) % [place] % (Auto) % Eos % (Auto) % Baso % (Auto) % Neut # (Auto) (1.4-6.5) K/uL Lymph # (Auto) (1.2-3.4) K/uL [place] # (Auto) (0.11-0.59) K/uL Eos # (Auto) (0-0.5) K/uL Baso # (Auto) (0-0.2) K/uL Immature Gran # (Auto) (0.00-0.02) K/uL PT (9.0-12.0) Seconds INR (0.9-1.1) Sodium (136-145) mmol/L Potassium (3.5-5.1) mmol/L Chloride (98-107) mmol/L Carbon Dioxide (21-32) mmol/L Anion Gap (3-11) BUN (7-18) mg/dl Creatinine (0.6-1.4) mg/dl Est Cr Clr Drug Dosing ml/min Est GFR ( Amer) Est GFR (Non-Af Amer) BUN/Creatinine Ratio (10-20) Glucose (70-99) mg/dl POC Glucose 173 H 151 H (70-99) mg/dl Calcium (8.5-10.1) mg/dl Magnesium (1.8-2.4) mg/dl Total Bilirubin (0.2-1) mg/dl AST (15-37) U/L ALT (12-78) U/L Alkaline Phosphatase (45-117) U/L Total Creatine Kinase (39-308) U/L Troponin I (0-0.045) ng/ml NT-Pro-B Natriuret Pep (0-1800) pg/ml Total Protein (6.4-8.2) gm/dl Albumin (3.4-5.0) gm/dl Globulin (2.5-4.0) gm/dl Albumin/Globulin Ratio (0.9-2) Lipase (73-393) U/L TSH (0.300-4.500) uIu/ml Urine Color Urine Appearance (Clear) Urine pH (4.5-7.5) Ur Specific [place] (1.000-1.030) Urine Protein (Negative) Urine Glucose (UA) (Negative) Urine Ketones (Negative) Urine Blood (Negative) Urine Nitrite (Negative) Urine Bilirubin (Negative) Urine Urobilinogen (Negative) Ur Leukocyte Esterase (Negative) 10/19/19 10/19/19 10/19/19 Range/Units 05:53 05:53 06:10 WBC (4.8-10.8) K/uL RBC (4.7-6.1) M/uL Hgb (14.0-18.0) g/dL Hct (42-52) % MCV (80-100) fL MCH (25-34) pg MCHC (32-36) g/dL RDW Std Deviation (36.4-46.3) fL RDW Coeff of Andrew (11.5-14.5) % Plt Count (130-400) K/uL MPV (7.4-10.4) fL Immature Gran % (Auto) % Neut % (Auto) % Lymph % (Auto) % [place] % (Auto) % Eos % (Auto) % Baso % (Auto) % Neut # (Auto) (1.4-6.5) K/uL Lymph # (Auto) (1.2-3.4) K/uL [place] # (Auto) (0.11-0.59) K/uL Eos # (Auto) (0-0.5) K/uL Baso # (Auto) (0-0.2) K/uL Immature Gran # (Auto) (0.00-0.02) K/uL PT 17.3 H (9.0-12.0) Seconds INR 1.7 H (0.9-1.1) Sodium 142 (136-145) mmol/L Potassium 4.3 (3.5-5.1) mmol/L Chloride 112 H (98-107) mmol/L Carbon Dioxide 25 (21-32) mmol/L Anion Gap 5.0 (3-11) BUN 21 H (7-18) mg/dl Creatinine 1.38 (0.6-1.4) mg/dl Est Cr Clr Drug Dosing 47.0 ml/min Est GFR ( Amer) 55.2 Est GFR (Non-Af Amer) 47.6 BUN/Creatinine Ratio 15.6 (10-20) Glucose 114 H (70-99) mg/dl POC Glucose 117 H (70-99) mg/dl Calcium 8.2 L (8.5-10.1) mg/dl Magnesium (1.8-2.4) mg/dl Total Bilirubin (0.2-1) mg/dl AST (15-37) U/L ALT (12-78) U/L Alkaline Phosphatase (45-117) U/L Total Creatine Kinase (39-308) U/L Troponin I (0-0.045) ng/ml NT-Pro-B Natriuret Pep (0-1800) pg/ml Total Protein (6.4-8.2) gm/dl Albumin (3.4-5.0) gm/dl Globulin (2.5-4.0) gm/dl Albumin/Globulin Ratio (0.9-2) Lipase (73-393) U/L TSH (0.300-4.500) uIu/ml Urine Color Urine Appearance (Clear) Urine pH (4.5-7.5) Ur Specific [place] (1.000-1.030) Urine Protein (Negative) Urine Glucose (UA) (Negative) Urine Ketones (Negative) Urine Blood (Negative) Urine Nitrite (Negative) Urine Bilirubin (Negative) Urine Urobilinogen (Negative) Ur Leukocyte Esterase (Negative) 10/19/19 Range/Units 11:52 WBC (4.8-10.8) K/uL RBC (4.7-6.1) M/uL Hgb (14.0-18.0) g/dL Hct (42-52) % MCV (80-100) fL MCH (25-34) pg MCHC (32-36) g/dL RDW Std Deviation (36.4-46.3) fL RDW Coeff of Andrew (11.5-14.5) % Plt Count (130-400) K/uL MPV (7.4-10.4) fL Immature Gran % (Auto) % Neut % (Auto) % Lymph % (Auto) % [place] % (Auto) % Eos % (Auto) % Baso % (Auto) % Neut # (Auto) (1.4-6.5) K/uL Lymph # (Auto) (1.2-3.4) K/uL [place] # (Auto) (0.11-0.59) K/uL Eos # (Auto) (0-0.5) K/uL Baso # (Auto) (0-0.2) K/uL Immature Gran # (Auto) (0.00-0.02) K/uL PT (9.0-12.0) Seconds INR (0.9-1.1) Sodium (136-145) mmol/L Potassium (3.5-5.1) mmol/L Chloride (98-107) mmol/L Carbon Dioxide (21-32) mmol/L Anion Gap (3-11) BUN (7-18) mg/dl Creatinine (0.6-1.4) mg/dl Est Cr Clr Drug Dosing ml/min Est GFR ( Amer) Est GFR (Non-Af Amer) BUN/Creatinine Ratio (10-20) Glucose (70-99) mg/dl POC Glucose 155 H (70-99) mg/dl Calcium (8.5-10.1) mg/dl Magnesium (1.8-2.4) mg/dl Total Bilirubin (0.2-1) mg/dl AST (15-37) U/L ALT (12-78) U/L Alkaline Phosphatase (45-117) U/L Total Creatine Kinase (39-308) U/L Troponin I (0-0.045) ng/ml NT-Pro-B Natriuret Pep (0-1800) pg/ml Total Protein (6.4-8.2) gm/dl Albumin (3.4-5.0) gm/dl Globulin (2.5-4.0) gm/dl Albumin/Globulin Ratio (0.9-2) Lipase (73-393) U/L TSH (0.300-4.500) uIu/ml Urine Color Urine Appearance (Clear) Urine pH (4.5-7.5) Ur Specific [place] (1.000-1.030) Urine Protein (Negative) Urine Glucose (UA) (Negative) Urine Ketones (Negative) Urine Blood (Negative) Urine Nitrite (Negative) Urine Bilirubin (Negative) Urine Urobilinogen (Negative) Ur Leukocyte Esterase (Negative) Imaging Data My Impression: X-ray: I interpreted the following studies. Chest: A single view study of the chest was reviewed and was negative for cardiomegaly, focal infiltrate, effusion, pulmonary edema, or wide mediastinum. Pacemaker noted. Radiologist's Impression: CT C-spine: Sagittal reformatted images demonstrate normal prevertebral soft tissues. There is narrowing and osteophytosis of the atlantodental joint with deformity of the C2 vertebral body consistent with old healed fracture. The C2-3 level is fused. Cervical spine vertebral body heights are maintained. There is moderate loss of disc space height and osteophytosis in the lower cervical spine greatest at C5-6 and C6-7. Moderate facet sclerosis and osteophytosis is present in the mid cervical spine. There is straightening of the normal cervical curvature. No acute fracture, subluxation, or canal compromise is seen. Incidental note is made of severe calcification of the carotid bifurcations bilaterally. Radiologist: Tony Rangel MD CT head: Comparison to September 09, 2019. There is chronic opacification of the left sphenoid sinus as well as signs of previous sinus surgery and mucosal thickening throughout the remaining frontal, ethmoid, and maxillary sinuses consistent with chronic sinusitis, unchanged. There is no skull fracture or scalp hematoma. The mastoid air cells are normal. There is a normal gyral pattern of the brain. There is no mass lesion or midline shift. The pelletier-white matter differentiation is maintained. The ventricles and extra-axial spaces are slightly prominent. There is mild periventricular white matter low-density consistent with chronic small vessel disease. There is no evidence of acute large vessel infarct or intracranial hemorrhage. Radiologist: Tony Rangel MD ECG Data Attestation: I personally reviewed and interpreted this ECG as follows: Indication: + other Rate (beats per minute): PACED ECG Intervals/blocks: + IVCD and + Prolonged QT ECG [place]: + Left axis deviation ECG ST segments: + Nonspecific ST abnormalities Comparison ECG Date: from (09/15/2019) Change: no significant change Blood Pressure Blood Pressure Findings: Elevated blood pressure Blood Pressure Disposition: further management by hospitalist ZACHERY Armenta An order was placed for continuous cardiac monitoring. The monitor shows a rate of 80 with a paced rhythm. This is an elderly male who presents after a witnessed syncopal event at home. Patient with a similar prior episode and was admitted approximately a month ago. At that time underwent extensive evaluation including labs and imaging. Patient does see cardiology and had been seen by them recently, and his amiodarone dose was increased starting today. Initially given use of a diuretic and fluid restriction we discussed possible dehydration given patient was outside during the syncopal event. Once family arrived they stated patient was unconscious for several minutes, and then was confused once initially awake again. No seizure-like activity was noted and patient with no history of seizures. Labs drawn and sent here which were fairly reassuring given the patient's advanced age and complicated past medical history. No evidence of trauma was noted on imaging. Case was discussed with hospitalist, and at this time the interrogation of the patient's pacemaker was still pending. The [employer] rep then called initially contacted the nurse who then relayed the message to me the patient had had several minutes of ventricular tachycardia, which is likely the explanation for his syncope and prolonged unconsciousness this evening. I discussed the case with Dr. Alcantar and ordered amiodarone bolus and drip. Dr. Alcantar was in agreement, and they will see the patient in consult. Case discussed with hospitalist for additional inpatient management. Impression & Plan Syncope, Acute kidney injury, Pacemaker, Hypertension, Ventricular tachycardia Discharge Plan Visit Data *Final* Discharge Date/Time: 10/18/19 00:46 Chief Complaint: Illness Stated Complaint: NAUSEA, DIAPHORATIC, HEAT EXHAUST ED Provider: Tena Allen Discharge Problem: Syncope, Acute kidney injury, Pacemaker, Hypertension, Ventricular tachycardia Patient Disposition: Admitted As Inpatient Condition: Fair Discharge Instructions Interventions: ED Discharge Assessment Last Done: 10/18/19 00:46
[2019-10-17 21:44] LABS: Albumin Level 3.2 gm/dl (3.4-5.0); BUN Creatinine Ratio 14.2 (10-20); Calcium 9.2 mg/dl (8.5-10.1); Creatinine Clr Calc Pharmacy 40.5 ml/min; Est GFR (African American) 45.1; Est GFR (Non-African American) 38.9; Magnesium 2.2 mg/dl (1.8-2.4); Potassium 4.6 mmol/L (3.5-5.1)
[2019-10-17 21:55] LABS: Albumin Globulin Ratio 0.7 (0.9-2); Bilirubin,Total 0.3 mg/dl (0.2-1); Globulin 4.6 gm/dl (2.5-4.0); Thyroid Stimulating Hormone 3.12 uIu/ml (0.300-4.500); Total Protein 7.8 gm/dl (6.4-8.2); Troponin I 0.017 ng/ml (0-0.045)
[2019-10-17] MEDS ORDERED: AMIODARONE IV BOLUS & DRIP IV STA (23:53)
[2019-10-17] MEDS ORDERED: AMIODARONE / D5W 150 MG/100 ML BAG IV STA (23:53)
[2019-10-17] MEDS ORDERED: STAT IV Infusion **Titration per Protocol STA (23:53)
[2019-10-17] MEDS ORDERED: 0.2 MICRON FILTER SET 1 EA IV ONE (23:53)
[2019-10-17] MEDS ORDERED: AMIODARONE / D5W 360 MG/200 ML BAG IV ONE (23:53)
--- NOTE | 2019-10-18 00:24 | History & Physical Report ---
Date of Service October 18, 2019 Assessment & Plan (1) Syncope: Multiple episodes of NSVT on ICD interrogation Rule out orthostasis given ARF, hx of poorly controlled DM chronic systolic heart failure secondary to ischemic cardiomyopathy (EF 40 to 45%, TTE 2019), patient possibly on the dry side history CAD SSS status post PPM on Coumadin, paced rhythm, INR therapeutic hypertension, stable hyperlipidemia on statin Rx DM 2 insulin requiring, suboptimal control as of recent hemoglobin A1c of 8.26 August 2019 hypothyroidism, euthyroid as of today's TSH chronic anemia, hemoglobin at baseline OBS PCU Cardiology consult RE syncope, recurrent NSVT episodes on ICD interrogation (IV Amiodarone infusion as per Dr. Alcantar's discussion with the ER provider.) Check orthostatic vitals Baseline UA, monitor creatinine response to gentle IV hydration, hold home diuretic until creatinine at baseline N.p.o. until patient seen by Cardiology in a.m. in anticipation of procedure (Dr. Alcantar requests for patient's Coumadin to be held interim.) Basal insulin adjusted for n.p.o. status, ISS BG goal [id number] DVT prophylaxis. SCDs if INR less than 2 while Coumadin on hold Full code Patient's daughters requesting updates from providers. Mel Ortega (contact #[phone]) Ms. Mica Vieyra (contact #[phone]) Text document was generated using [employer] voice recognition software. It may contain grammatical or spelling errors. Kindly contact undersigned for clarification of any documentation item in question. History of Present Illness Chief Complaint: Syncope Primary Care Provider: Steve Quintero MD History obtained from patient, family, and records. Medical history significant for chronic systolic heart failure secondary to ischemic cardiomyopathy (EF 40 to 45%, TTE 2019), history CAD as per records, SSS status post PPM on Coumadin, history NSVT as per records, hypertension, hyperlipidemia, DM 2 insulin requiring, hypothyroidism, chronic anemia (baseline hemoglobin 9-10), polymyalgia rheumatica/adrenal insufficiency as per records. Patient confined on 2 occasions last last month. September 08 for syncope attributed to orthostasis. September 14 4 severe sepsis secondary to hospital-acquired pneumonia. Patient seen at [facility] 2 days ago. Occasional woozy feeling as per patient as per provider note. NSVT episodes totaling 21 on ICD interrogation spanning September 08 to October 15 as per provider note. Amiodarone increased to 200 mg twice daily for arrhythmia suppression. Consideration for AICD upgrade as per note. Patient had a syncopal event at home last night while gardening witnessed by family. No premonitory dizziness symptoms. Patient out for a few moments. No witnessed seizures as per family. Patient somewhat confused when he woke up. Transient achy headache, S OB symptoms. Patient denies chest pain, cough symptoms. Compliant with home meds. Eating okay as per family. Multiple episodes of VT noted on ICD interrogation at the ER. IV Amiodarone infusion initiated at the ER following recommendations of patient's commodities clerk. 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, lives with daughter Allergies Allergy/AdvReac Type Severity Reaction Status Date / Time aspirin Allergy Unknown DOES NOT Verified 10/17/19 23:24 TAKE D/T ASTHMA citric acid AdvReac Unknown Verified 10/17/19 23:24 [From [facility]] NSAIDS (Non-Steroidal AdvReac Unknown Verified 10/17/19 23:24 Anti-Inflamma sodium bicarbonate AdvReac Unknown Verified 10/17/19 23:24 [From [facility]] Home Medications Home Medications Medication Instructions Recorded Confirmed Type albuterol sulfate 2 puff INHALATION QID PRN 01/30/18 10/17/19 History metoprolol succinate 25 mg PO QAM 01/30/18 10/17/19 History omeprazole 20 mg PO QAM 07/25/18 10/17/19 History gabapentin 300 mg capsule 300 mg PO HS #90 cap 11/10/18 10/17/19 Rx acetaminophen [Tylenol] 325 mg PO Q6H PRN 11/23/18 10/17/19 History blood sugar diagnostic #200 ea 12/04/18 12/25/18 Rx insulin glargine 100 unit/mL (3 25 units SQ HS #15 ml 01/17/19 10/17/19 Rx mL) subcutaneous pen amiodarone 200 mg PO BID 02/20/19 10/17/19 History levothyroxine 75 mcg PO QAM 02/20/19 10/17/19 History spironolactone 12.5 mg PO MOWEFR 02/20/19 10/17/19 History torsemide 10 mg PO QAM 02/20/19 10/17/19 History polyethylene glycol 3350 [Miralax] 17 g PO DAILY 30 Days #30 ea 02/24/19 10/17/19 Rx pravastatin 40 mg tablet 40 mg PO HS #90 tab 05/07/19 10/17/19 Rx pen needle, diabetic 32 gauge x #200 ea 05/28/19 Rx 5/32" budesonide-formoterol HFA 160 2 puff INHALATION BID #10.2 gm 05/31/19 10/17/19 Rx mcg-4.5 mcg/actuation aerosol inhaler clopidogrel 75 mg tablet 75 mg PO QAM #30 tab 08/01/19 10/17/19 Rx escitalopram oxalate 10 mg PO DAILY 09/09/19 10/17/19 History warfarin 1.25 mg PO SUTUTH 09/09/19 10/17/19 History warfarin 2.5 mg PO MOWEFRSA 09/09/19 10/17/19 History zafirlukast 20 mg PO BID 09/09/19 10/17/19 History 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) Coronary artery disease (Chronic) multi-vessel disease - medical management Depression (Chronic) Diabetic neuropathy (Chronic) GERD (gastroesophageal reflux disease) (Chronic) Tena's thyroiditis (Chronic) History of non-ST elevation myocardial infarction (NSTEMI) (Resolved) Hyperlipidemia (Chronic) Hypertension (Chronic) Mural thrombus of heart (Acute) Noted on echo November 2018 Pacemaker (Chronic) dual chamber Paroxysmal atrial tachycardia (Chronic) Polymyalgia rheumatica (Chronic) Sick sinus syndrome (Chronic) Type 2 diabetes mellitus (Chronic) Vitamin D deficiency (Chronic) Surgical History History of temporal artery biopsy Family History Father Stroke Other Family history non-contributory Social History Smoking Status: Never smoker Second Hand Exposure: No; Do You Dip or Chew Tobacco: No; Tobacco Cessation Education Requested by Patient: No Hx Alcohol Use: No Hx Substance Use: No Preferred Language: [place]ib[place]ian Communication Ability: Effective 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 Required: No Beliefs That Will Affect Care: None marital status: Current Living Situation: Family Current Living Situation Comment: DAUGHTER AND HER Other Information That Helps Us Care for You: No Feels Safe at Home: Yes Safety Concerns: Feels Safe At This Time caffeine: Yes Seatbelt Use: always Review of Systems Review of Systems: As per HPI, all 10 systems reviewed, all other ROS negative Physical Exam Physical Exam: GENERAL: Comfortable, slightly hard of hearing, pleasant, no respiratory distress SKIN: Pallor , warm HEENT: Pale palpebral conjunctivae, chronic ptosis, dry buccal mucosa NECK : Supple, no tenderness CHEST : CTA, no tenderness HEART : RRR, no obvious murmurs ABDOMEN: Some distention, nontender EXTREMITIES : Minimal LE swelling, no LE tenderness, no other conspicuous deformities noted NEUROLOGIC : Coherent, no facial asymmetry, mild hearing impairment, no other gross focality Results & Data Results & Data ([facility]) Vital Signs (Past 12 Hours) Vital Signs Temp Pulse Resp BP Pulse Ox 10/18/19 00:00 71 24 147/90 H 100 10/17/19 23:30 70 17 143/87 H 100 10/17/19 23:00 70 19 146/83 H 100 10/17/19 22:30 71 20 139/75 100 10/17/19 22:00 70 18 142/73 H 10/17/19 21:53 82 17 141/81 H 100 10/17/19 21:52 73 10/17/19 21:31 73 14 97 10/17/19 21:20 70 20 100 10/17/19 21:10 71 18 100 10/17/19 21:05 37.0 C 72 14 151/73 H 100 10/17/19 20:59 70 21 151/73 H 100 Laboratory Results Laboratory Results WBC 12.64 K/uL (4.8-10.8) H 10/17/19 21:10 RBC 4.28 M/uL (4.7-6.1) L 10/17/19 21:10 Hgb 10.4 g/dL (14.0-18.0) L 10/17/19 21:10 Hct 33.6 % (42-52) L 10/17/19 21:10 MCV 78.5 fL (80-100) L 10/17/19 21:10 MCH 24.3 pg (25-34) L 10/17/19 21:10 MCHC 31.0 g/dL (32-36) L 10/17/19 21:10 RDW Std Deviation 48.8 fL (36.4-46.3) H 10/17/19 21:10 RDW Coeff of Andrew 17.0 % (11.5-14.5) H 10/17/19 21:10 Plt Count 372 K/uL (130-400) 10/17/19 21:10 MPV 10.3 fL (7.4-10.4) 10/17/19 21:10 Immature Gran % (Auto) 0.6 % 10/17/19 21:10 Neut % (Auto) 72.2 % 10/17/19 21:10 Lymph % (Auto) 10.2 % 10/17/19 21:10 [place] % (Auto) 9.5 % 10/17/19 21:10 Eos % (Auto) 7.3 % 10/17/19 21:10 Baso % (Auto) 0.2 % 10/17/19 21:10 Neut # (Auto) 9.12 K/uL (1.4-6.5) H 10/17/19 21:10 Lymph # (Auto) 1.29 K/uL (1.2-3.4) 10/17/19 21:10 [place] # (Auto) 1.20 K/uL (0.11-0.59) H 10/17/19 21:10 Eos # (Auto) 0.92 K/uL (0-0.5) H 10/17/19 21:10 Baso # (Auto) 0.03 K/uL (0-0.2) 10/17/19 21:10 Immature Gran # (Auto) 0.08 K/uL (0.00-0.02) H 10/17/19 21:10 PT 26.6 Seconds (9.0-12.0) H 10/17/19 21:10 INR 2.7 (0.9-1.1) H 10/17/19 21:10 Sodium 139 mmol/L (136-145) 10/17/19 21:10 Potassium 4.6 mmol/L (3.5-5.1) 10/17/19 21:10 Chloride 107 mmol/L (98-107) 10/17/19 21:10 Carbon Dioxide 23 mmol/L (21-32) 10/17/19 21:10 Anion Gap 8.0 (3-11) 10/17/19 21:10 BUN 23 mg/dl (7-18) H 10/17/19 21:10 Creatinine 1.63 mg/dl (0.6-1.4) H 10/17/19 21:10 Est Cr Clr Drug Dosing 40.5 ml/min 10/17/19 21:10 Est GFR ( Amer) 45.1 10/17/19 21:10 Est GFR (Non-Af Amer) 38.9 10/17/19 21:10 BUN/Creatinine Ratio 14.2 (10-20) 10/17/19 21:10 Glucose 201 mg/dl (70-99) H 10/17/19 21:10 Calcium 9.2 mg/dl (8.5-10.1) 10/17/19 21:10 Magnesium 2.2 mg/dl (1.8-2.4) 10/17/19 21:10 Total Bilirubin 0.3 mg/dl (0.2-1) 10/17/19 21:10 AST 31 U/L (15-37) 10/17/19 21:10 ALT 30 U/L (12-78) 10/17/19 21:10 Alkaline Phosphatase 111 U/L (45-117) 10/17/19 21:10 Total Creatine Kinase 77 U/L (39-308) 10/17/19 21:10 Troponin I 0.017 ng/ml (0-0.045) 10/17/19 21:10 NT-Pro-B Natriuret Pep 7930 pg/ml (0-1800) H 10/17/19 21:10 Total Protein 7.8 gm/dl (6.4-8.2) 10/17/19 21:10 Albumin 3.2 gm/dl (3.4-5.0) L 10/17/19 21:10 Globulin 4.6 gm/dl (2.5-4.0) H 10/17/19 21:10 Albumin/Globulin Ratio 0.7 (0.9-2) L 10/17/19 21:10 Lipase 180 U/L (73-393) 10/17/19 21:10 TSH 3.120 uIu/ml (0.300-4.500) 10/17/19 21:[address] head initial read: Chronic opacification left sphenoid sinus. Previous ankle surgery. No skull fracture or scalp hematoma. Mild periventricular white matter density consistent with chronic small vessel disease. No evidence of acute large vessel infarct or intracranial hemorrhage. CT cervical spine initial read: Straightening of normal cervical curvature. No acute fracture, subluxation, or canal compromise is seen. Incidental note of severe calcification carotid bifurcations bilaterally. Chest x-ray as per my interpretation cardiomegaly, atelectasis EKG as per my interpretation : Rate 70, paced rhythm (1) Syncope Syncope type: unspecified Qualified Code(s): R55 - Syncope and collapse
[2019-10-18] MEDS ORDERED: DEXTROSE 50% 50 ML SYRINGE IV PRN (01:22)
[2019-10-18] MEDS ORDERED: NITROGLYCERIN SL 0.4 MG/TAB TAB SL PRN (01:22)
[2019-10-18] MEDS ORDERED: INSULIN GLARGINE SOLOSTAR 100 UNITS/ML 3 ML PEN SC STA (01:22)
[2019-10-18] MEDS ORDERED: SODIUM CHLORIDE 0.9% 1000ML 1,000 ML IV SCH (01:22)
[2019-10-18] MEDS ORDERED: GLUCAGON FOR INJ 1 MG VIAL SQ PRN (01:22)
[2019-10-18] MEDS ORDERED: GLUCOSE 10 TABS/TUBE PO PRN (01:22)
[2019-10-18] MEDS ORDERED: CARBOHYDRATES FOR HYPOGLYCEMIA PO PRN (01:22)
[2019-10-18] MEDS ORDERED: ACETAMINOPHEN 325 MG TAB PO PRN (01:22)
[2019-10-18] MEDS ORDERED: GLUCOSE 40% GEL 15 GM TUBE PO PRN (01:22)
[2019-10-18] MEDS ORDERED: TRAMADOL HCL 50 MG TABLET PO PRN (01:22)
[2019-10-18] MEDS ORDERED: PROMETHAZINE HCL 12.5 MG in SODIUM CHLORIDE 0.9% 50 ML IV PRN (01:22)
[2019-10-18] MEDS: INSULIN ASPART 100 UNITS/ML 3 ML PEN SC SCH ×4 (01:55→17:03)
[2019-10-18 04:02] LABS: Appearance Urine Clear (Clear); Bilirubin Urine Negative (Negative); Blood Urine Negative (Negative); Color Urine Yellow; Glucose Urine UA Negative (Negative); Ketones Urine Negative (Negative); Leukocyte Esterase Urine Negative (Negative); Nitrite Urine Negative (Negative); Protein Urine Negative (Negative); Specific Gravity Urine 1.022 (1.000-1.030); Urobilinogen Urine Negative (Negative)
[2019-10-18] MEDS ORDERED: AMIODARONE / D5W 360 MG/200 ML BAG IV SCH (05:56)
[2019-10-18] MEDS: LEVOTHYROXINE SODIUM 75 MCG TABLET PO SCH (06:01)
--- NOTE | 2019-10-18 06:45 | XRay Report ---
XR chest 1V portable CLINICAL HISTORY: syncope COMPARISON STUDY: 09/18/2019 FINDINGS: The heart is enlarged. There is a left subclavian dual-chamber central venous pacemaker pre sent. There is no lobar consolidation. There is mild basilar interstitial thickening. There are no la rge pleural effusions.[ IMPRESSION: Cardiomegaly and mild basilar interstitial thickening. ACT 112: Negative or not required by law. Electronically signed by: Star Pro M.D. 10/18/2019 6:44 AM
--- NOTE | 2019-10-18 06:53 | CT Scan Report ---
CT head/brain wo con CLINICAL HISTORY: syncope COMPARISON STUDY: 09/09/2019 TECHNIQUE: Axial CT of the brain is performed from the vertex to the skull base. IV contrast was not administered for this examination. A dose lowering technique was utilized adhering to the principles of ALARA. CT DOSE: 1061.28 mGy.cm FINDINGS: No intra or extra-axial mass lesions are visualized. There is no CT evidence of acute cortical infarc tion. There is no evidence of midline shift. There is no acute hemorrhage. No calvarial fractures ar e visualized. There are patchy white matter hypodensities likely on a small vessel basis. There is basal ganglial m ineralization. There is no evidence of pathologic ventricular dilatation. There is chronic mucosal disease in the paranasal sinuses. There is chronic opacification of the left sphenoid. There are postsurgical changes of bilateral medial antrectomies. IMPRESSION: No acute intracranial findings ACT 112: Negative or not required by law. Electronically signed by: Star Pro M.D. 10/18/2019 6:52 AM
--- NOTE | 2019-10-18 06:59 | CT Scan Report ---
CT cervical spine wo con CLINICAL HISTORY: 79 years-old Male with fall. Acute neck injury status post fall COMPARISON: Head CT of same day, cervical spine radiographs 12/08/2016. TECHNIQUE: Multiple axial CT images of the cervical spine were obtained without contrast. A dose low ering technique was utilized adhering to the principles of ALARA. FINDINGS: Demineralized appearance of the bones. Partial bony fusion at C1-C2 and C2-C3. Cortical thickening wi th C2 deformity is suggestive of healed remote fracture deformity. 8 mm sclerotic focus at T1 is sugg estive of a probable bone island is unchanged. Severe disc space narrowing at C5-C6 and C6-C7 with ad vanced spondylitic spurring. There is a posterior subcortical cyst at C7. There is multilevel severe left-sided facet arthrosis. Nuchal ligament calcifications. Mild superior endplate compression deform ity at multiple levels appears to be on a chronic basis. No definite acute fracture or subluxation. 3 mm anterolisthesis C4 on C5 is likely secondary to long-standing facet arthrosis. Mild convex right curvature of the mid cervical spine. Multilevel foraminal narrowing. Moderate mucoperiosteal thickening of the visualized paranasal sinuses. No pneumothorax. No preverteb ral soft tissue swelling. Extensive calcified plaque of the carotid bulbs. IMPRESSION: No acute fracture or subluxation. ACT 112: Negative or not required by law. The above report was generated using voice recognition software. It may contain grammatical, syntax o r spelling errors. Electronically signed by: Obey Emerson M.D. 10/18/2019 6:57 AM
[2019-10-18 07:44] LABS: Basophils # (auto) 0.02 K/uL (0-0.2); Basophils % (auto) 0.2 %; Eosinophils # (auto) 0.86 K/uL (0-0.5); Eosinophils % (auto) 9.3 %; Hematocrit (blood only) 30.6 % (42-52); Hemoglobin 9.2 g/dL (14.0-18.0); Immature Granulocytes # (auto) 0.05 K/uL (0.00-0.02); Immature Granulocytes % (auto) 0.5 %; Lymphocytes # (auto) 1.49 K/uL (1.2-3.4); Lymphocytes % (auto) 16.2 %; Mean Corpuscular Hemoglobin 23.9 pg (25-34); Mean Corpuscular Hgb Conc 30.1 g/dL (32-36); Mean Corpuscular Volume 79.5 fL (80-100); Mean Platelet Volume 10.4 fL (7.4-10.4); Monocytes # (auto) 0.82 K/uL (0.11-0.59); Monocytes % (auto) 8.9 %; Neutrophils # (auto) 5.98 K/uL (1.4-6.5); Neutrophils % (auto) 64.9 %; Platelet Count 314 K/uL (130-400); RDW Standard Deviation 49.3 fL (36.4-46.3); Red Blood Count 3.85 M/uL (4.7-6.1); White Blood Count 9.22 K/uL (4.8-10.8)
[2019-10-18 07:53] LABS: INR 2.4 (0.9-1.1); Prothrombin Time 24.6 Seconds (9.0-12.0)
[2019-10-18] MEDS: AMIODARONE 200 MG TAB PO SCH ×2 (08:31→21:45)
[2019-10-18] MEDS: PANTOprazole 40 MG TAB PO SCH (08:32)
[2019-10-18] MEDS: METOPROLOL SUCC 25MG EXT REL TAB PO SCH ×2 (08:32→21:45)
[2019-10-18] MEDS: POLYETHYLENE (MIRALAX) 17 GM PACK PO SCH ×2 (08:32→08:39)
[2019-10-18] MEDS: INSULIN GLARGINE SOLOSTAR 100 UNITS/ML 3 ML PEN SC SCH ×2 (08:33→21:45)
[2019-10-18] MEDS: ESCITALOPRAM OXALATE 10 MG TAB PO SCH (08:33)
[2019-10-18] MEDS: FLUTICASONE/VILANTEROL 100/25MCG 14 PUFFS/INHALER INH SCH (08:34)
[2019-10-18 08:48] LABS: BUN Creatinine Ratio 18.7 (10-20); Calcium 7.8 mg/dl (8.5-10.1); Creatinine Clr Calc Pharmacy 53.7 ml/min; Est GFR (African American) 64.7; Est GFR (Non-African American) 55.8; Potassium 4.2 mmol/L (3.5-5.1)
--- NOTE | 2019-10-18 08:49 | Electrocardiogram Report ---
Test Reason : Blood Pressure : / mmHG Vent. Rate : 071 BPM Atrial Rate : 071 BPM P-R Int : 384 ms QRS Dur : 182 ms QT Int : 492 ms P-R-T Axes : 000 -74 097 degrees QTc Int : 534 ms Atrial-paced rhythm with prolonged AV conduction with occasional Premature ventricular complexes Left axis deviation Right bundle branch block Left ventricular hypertrophy with repolarization abnormality Old Anteroseptal infarct Abnormal ECG When compared with ECG of 15-SEP-2019 12:34, Premature ventricular complexes now present Otherwise no significant change Confirmed by Parmjit Macdonald ([id number]) on 10/18/2019 8:48:55 AM Referred By: REFERRED SELF Confirmed By:Parmjit Macdonald
--- NOTE | 2019-10-18 10:09 | Cardiology Consultation ---
Date of Consultation October 18, 2019 Assessment & Plan (1) Syncope: (2) Ventricular tachycardia: (3) Chronic systolic heart failure: (4) Ischemic cardiomyopathy: Patient with ischemic cardiomyopathy, LVEF in the range of 25% with LV mural thrombus at the time of non-STEMI, heart failure decompensation, November,. At that time the left ventricular systolic dysfunction is new, with only mild systolic dysfunction noted previously. His ejection fraction had improved with medical therapy to the range of 35-39 at follow-up 3 months after his event last year, and was graded to be 40 to 45% a month ago. Cardiac catheterization performed in November 2018 revealed multivessel coron salima heart disease, not amenable to PCI, it was felt that he was too high risk for CABG, and I believe he is still too high risk to consider surgical revascularization, and at present, he has not described recent angina, and he has been doing well from a volume status standpoint. He has now been found to have episodes of ventricular tachycardia, and last evening, had a recurrent syncopal episode which correlated with a 2-minute run of ventricular tachycardia noted on device interrogation. At present, going to discontinue his amiodarone infusion, and continue oral treatment with 200 mg twice daily. Screening TSH and liver function tests have been within normal limits. I am going to cautiously increase his metoprolol succinate from 25 mg daily to 25 mg in the a.m. and 12.5 mg in the evening, he has had issues with potential orthostatic hypotension so I would proceed with dose adjustment with caution. I have requested a repeat echocardiogram for reassessment of his ejection fraction. He does have a wide QRS complex on his EKG, but it is a right bundle branch block morphology. I am going to consult Dr Haley of for evaluation, and consideration of device upgrade to an ICD. INR is 2.4 today. Coumadin on hold. Anticipate it will take a few days for his INR to trend down to reasonable level to proceed. In meantime he is to remain in hospital. History of Present Illness Attending Physician: Tej Zuniga MD History of Present Illness Dave Greer is an 79 year old male seen in cardiology consultation per the request of Dr Shook for the evaluation of syncope and ventricular tachycardia. The patient is well-known to the undersigned as I had actually most recently seen him in outpatient follow-up on 10/16/2019. This is his third recent hospital stay. On 09/09/2019 he was in his family's kitchen getting ready to eat a bowl of cereal and his daughter and son-in-law observed that he appeared like he was going to lose consciousness and loses postural tone. He was assisted to a chair and collapsed into the chair and was unresponsive for a few moments and then confused afterward. He was admitted via the emergency room, and interrogation of his dual-chamber [employer] permanent pacemaker revealed normal function with no significant arrhythmia at that time. He was treated for volume depletion, and received IV fluids, and ultimately discharged several days later. He was then readmitted on 09/15/2019 until 09/18/2019 and was treated for sepsis and pneumonia. In the meantime since discharge, he had been feeling relatively well, with the exception of occasional feeling "woozy "without jignesh syncope. Interrogation however of his device performed as an outpatient on 10/16/2019 revealed 21 episodes of ventricular tachycardia which were observed from August 2019 until October 16, 2019. The 2 longest episodes were on 10/14/2019 and and were 19 seconds in duration and 18 seconds in duration with elevated ventricular rates in the range of 160 to 200 bpm. At the time of the office visit, amiodarone was increased to 200 mg twice daily. Yesterday, 10/17/2019 he was feeling well throughout the day, in the evening he was contacting a hose to water his garden and had a witnessed syncopal event, he felt severely nauseous afterward. Device interrogation reveals a 2-minute episode of ventricular tachycardia that occurred at 6:54 PM and correlates with his symptoms. The patient has been admitted through the emergency room. He was placed on IV amiodarone infusion overnight, and has not had any significant recurrent ventricular arrhythmia. EKG and telemetry this morning reveals sinus rhythm with long AV delay, and RBBB. Cardiac History: Longstanding history of syncopal episodes dating back to the 1970s. Had undergone past loop recorder, with findings of bifascicular block, occasional bradycardia, and ultimately underwent dual-chamber permanent pacemaker performed by Dr. Karl Haley 04/2013. He had a subsequent revision of his right ventricular pacemaker lead in January,. In November, he was hospitalized at [facility] and then at [facility] with acute hypoxic respiratory failure secondary to congestive heart failure with congestive hepatopathy. Echocardiogram at that time revealed new severe left ventricular systolic dysfunction with an ejection fraction the range of 20-24% and apical left ventricular mural thrombus was noted. After he was optimized from a respiratory and renal standpoint he underwent cardiac catheterization with findings of multivessel coronary heart disease. He was felt to not be a candidate for PCI due to the nature of his coronary artery anatomy, and he is felt to not be a candidate for CABG due to his comorbidities and he was therefore treated medically. He has establish with the undersigned transitioning to this practice after hospital discharge from [facility] at that time. A repeat transthoracic echocardiogram was performed on 01/23/2019 revealing ongoing regional wall motion abnormalities but the overall biventricular systolic function had improved to an ejection fraction of 39% at that time. At the time his recent hospital stay in August, for syncope, a repeat echocardiogram performed at [facility] and interpreted by Dr. Agrawal reported ejection fraction in the range of 40 to 45%. Allergies Allergy/AdvReac Type Severity Reaction Status Date / Time aspirin Allergy Unknown DOES NOT Verified 10/17/19 23:24 TAKE D/T ASTHMA citric acid AdvReac Unknown Verified 10/17/19 23:24 [From [facility]] NSAIDS (Non-Steroidal AdvReac Unknown Verified 10/17/19 23:24 Anti-Inflamma sodium bicarbonate AdvReac Unknown Verified 10/17/19 23:24 [From [facility]] Home Medications Home Medications Medication Instructions Recorded Confirmed Type albuterol sulfate 2 puff INHALATION QID PRN 01/30/18 10/17/19 History metoprolol succinate 25 mg PO QAM 01/30/18 10/17/19 History omeprazole 20 mg PO QAM 07/25/18 10/17/19 History gabapentin 300 mg capsule 300 mg PO HS #90 cap 11/10/18 10/17/19 Rx acetaminophen [Tylenol] 325 mg PO Q6H PRN 11/23/18 10/17/19 History blood sugar diagnostic #200 ea 12/04/18 12/25/18 Rx insulin glargine 100 unit/mL (3 25 units SQ HS #15 ml 01/17/19 10/17/19 Rx mL) subcutaneous pen amiodarone 200 mg PO BID 02/20/19 10/17/19 History levothyroxine 75 mcg PO QAM 02/20/19 10/17/19 History spironolactone 12.5 mg PO MOWEFR 02/20/19 10/17/19 History torsemide 10 mg PO QAM 02/20/19 10/17/19 History polyethylene glycol 3350 [Miralax] 17 g PO DAILY 30 Days #30 ea 02/24/19 10/17/19 Rx pravastatin 40 mg tablet 40 mg PO HS #90 tab 05/07/19 10/17/19 Rx pen needle, diabetic 32 gauge x #200 ea 05/28/19 Rx /32" budesonide-formoterol HFA 160 2 puff INHALATION BID #10.2 gm 05/31/19 10/17/19 Rx mcg-4.5 mcg/actuation aerosol inhaler clopidogrel 75 mg tablet 75 mg PO QAM #30 tab 08/01/19 10/17/19 Rx escitalopram oxalate 10 mg PO DAILY 09/09/19 10/17/19 History warfarin 1.25 mg PO SUTUTH 09/09/19 10/17/19 History warfarin 2.5 mg PO MOWEFRSA 09/09/19 10/17/19 History zafirlukast 20 mg PO BID 09/09/19 10/17/19 History Patient History Medical History Adrenal insufficiency (Chronic) Anxiety (Chronic) Asthma (Chronic) Atrial fibrillation with RVR (Resolved) BPH (benign prostatic hyperplasia) (Chronic) Chronic renal insufficiency (Chronic) 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) Coronary artery disease (Chronic) multi-vessel disease - medical management Depression (Chronic) Diabetic neuropathy (Chronic) GERD (gastroesophageal reflux disease) (Chronic) Tena's thyroiditis (Chronic) History of non-ST elevation myocardial infarction (NSTEMI) (Resolved) Hyperlipidemia (Chronic) Hypertension (Chronic) Mural thrombus of heart (Acute) Noted on echo November 2018 Pacemaker (Chronic) dual chamber Paroxysmal atrial tachycardia (Chronic) Polymyalgia rheumatica (Chronic) Sick sinus syndrome (Chronic) Type 2 diabetes mellitus (Chronic) Vitamin D deficiency (Chronic) Surgical History History of temporal artery biopsy Family History Father Stroke Other Family history non-contributory Social History Smoking Status: Never smoker Second Hand Exposure: No; Do You Dip or Chew Tobacco: No; Tobacco Cessation Education Requested by Patient: No Hx Alcohol Use: No Hx Substance Use: No Preferred Language: Slovenian Communication Ability: Effective Identity Access Management Architect Required: No Beliefs That Will Affect Care: None marital status: Unknown Current Living Situation: Family Current Living Situation Comment: DAUGHTER AND HER Other Information That Helps Us Care for You: No Feels Safe at Home: Yes Safety Concerns: Feels Safe At This Time caffeine: Yes Seatbelt Use: always Review of Systems Review of Systems: All systems reviewed & are unremarkable except as noted in HPI & below Physical Exam Physical Exam: Temp Pulse Resp BP Pulse Ox 36.7 C 58 L 20 143/68 H 96 10/18/19 07:49 10/18/19 07:49 10/18/19 07:49 10/18/19 07:49 10/18/19 07:49 Constitutional: WD/WN, vitals as above Respiratory: normal respiratory effort, lungs clear to auscultation Cardiovascular: RRR, no murmur, no edema Gastrointestinal (Abdomen): normal bowel sounds, soft, nontender, no hepatosplenomegaly Neurologic: PERRL, EOMI, accommodation nl, no face palsy, no dysarthria Results & Data ([facility] [place]) Vital Signs (Past 12 Hours) Vital Signs Temp Pulse Pulse Resp BP BP Pulse Ox 10/18/19 07:49 36.7 C 58 L 20 143/68 H 96 10/18/19 03:42 36.5 C 60 16 119/61 96 10/18/19 01:22 10/18/19 01:10 60 10/18/19 01:00 36.8 C 63 18 152/72 H 99 10/18/19 00:30 70 18 129/81 100 10/18/19 00:00 71 24 147/90 H 100 10/17/19 23:30 70 17 143/87 H 100 10/17/19 23:00 70 19 146/83 H 100 10/17/19 22:30 71 20 139/75 100 Pulse Ox 10/18/19 07:49 10/18/19 03:42 10/18/19 01:22 99 10/18/19 01:10 10/18/19 01:00 10/18/19 00:30 10/18/19 00:00 10/17/19 23:30 10/17/19 23:00 10/17/19 22:30 Laboratory Results Cardiac Enzymes 10/17/19 Range/Units 21:10 AST 31 (15-37) U/L Troponin I 0.017 (0-0.045) ng/ml Coagulation INR: 2.4 10/17/19 10/18/19 Range/Units 21:10 07:20 PT 26.6 H 24.6 H (9.0-12.0) Seconds CBC 10/17/19 10/18/19 Range/Units 21:10 07:20 WBC 12.64 H 9.22 (4.8-10.8) K/uL RBC 4.28 L 3.85 L (4.7-6.1) M/uL Hgb 10.4 L 9.2 L (14.0-18.0) g/dL Hct 33.6 L 30.6 L (42-52) % Plt Count 372 314 (130-400) K/uL Neut # (Auto) 9.12 H 5.98 (1.4-6.5) K/uL Lymph # (Auto) 1.29 1.49 (1.2-3.4) K/uL Treasure # (Auto) 1.20 H 0.82 H (0.11-0.59) K/uL Eos # (Auto) 0.92 H 0.86 H (0-0.5) K/uL Baso # (Auto) 0.03 0.02 (0-0.2) K/uL Comprehensive Metabolic Panel 10/17/19 10/18/19 Range/Units 21:10 07:20 Sodium 139 142 (136-145) mmol/L Potassium 4.6 4.2 (3.5-5.1) mmol/L Chloride 107 111 H (98-107) mmol/L Carbon Dioxide 23 27 (21-32) mmol/L BUN 23 H 23 H (7-18) mg/dl Creatinine 1.63 H 1.21 D (0.6-1.4) mg/dl Glucose 201 H 155 H (70-99) mg/dl Calcium 9.2 7.8 L D (8.5-10.1) mg/dl AST 31 (15-37) U/L ALT 30 (12-78) U/L Alkaline Phosphatase 111 (45-117) U/L Total Protein 7.8 (6.4-8.2) gm/dl Albumin 3.2 L (3.4-5.0) gm/dl Intake and Output 10/17/19 10/18/19 10/18/19 22:59 06:59 14:59 Intake Total 765 / 765 Output Total 300 / 300 Balance 465 / 465 Intake: IV 765 / 765 NEXTERONE / D5W 150 mg In 100 100 / 100 ml @ 600 mls/hr IV NOW STA Rx#: [id number] NEXTERONE / D5W 360 mg In 200 200 / 200 ml @ 33.333 mls/hr IV ONE ONE Rx#:[id number] Nss 1000ML 1,000 ml @ 100 mls/ 465 / 465 hr IV .Q10H KATHLEEN Rx#:[id number] Oral 0 / 0 Output: Urine 300 / 300 Other: Other Intake Source NPO Weight 91.9 kg 88.7 kg (1) Syncope Syncope type: unspecified Qualified Code(s): R55 - Syncope and collapse
[2019-10-18] MEDS: CLOPIDOGREL BISULFATE 75 MG TAB PO SCH (10:46)
--- NOTE | 2019-10-18 11:17 | Communication Note ---
Date of Service: October 18, 2019 I spoke to pt's daughter, Mel, by phone with whom the patient lives. I updated her about the patient's progress and plan for EP consultation. She is taking her grandson to [place] as he is traveling to [place] tomorrow. She will be available by her mobile number, . Mel's sister Dena Vieyra is available in [place] if we need relative locally in the meantime.
--- NOTE | 2019-10-18 12:57 | CT Scan Report ---
CT OF THE ABDOMEN AND PELVIS WITHOUT CONTRAST CLINICAL HISTORY: Abdominal pain. COMPARISON STUDY: CT of the abdomen and pelvis February 20, 2019. TECHNIQUE: Axial images of the abdomen and pelvis were obtained without IV contrast. Images were revi ewed in the axial, sagittal, and coronal planes. Automated exposure control was utilized for the davon dy. A dose lowering technique was utilized adhering to the principles of ALARA. FINDINGS: Visualized portions of the lower lungs demonstrate mild groundglass opacities which favor a telectasis. No renal, ureteral or bladder calculi are present. There is no hydronephrosis. Evaluation of the remainder of the abdomen and pelvis is suboptimal on this unenhanced examination. The liver, spleen, adrenal glands and pancreas are unremarkable with exception of a 2 cm hypodense focus within the lateral segment of the liver on image 22 of 90. This was not evident on prior exam. There is mild infiltration adjacent to the gallbladder however the gallbladder is not distended. There is no evide nce for a bowel obstruction. Colonic diverticulosis is noted without evidence for acute diverticuliti s. There is mild dilatation of the proximal to mid appendix that measures 9 mm in caliber. The append iceal tip is normal. There is no periappendiceal infiltration. No free air or abscess is present. Pro state is moderately enlarged. No suspicious osseous lesions are noted. There is no lymphadenopathy. IMPRESSION: 1. Mild dilatation of the proximal to mid appendix. However, no periappendiceal infiltration. Althoug h not strongly suggestive, acute appendicitis cannot be excluded on this exam and correlation with ri ght lower quadrant pain is recommended. If indicated, short-term follow-up CT is recommended with con trast. 2. Mild pericholecystic infiltration without gallbladder distention. Findings could be correlated wit h right upper quadrant pain. 3. No bowel obstruction. Colonic diverticulosis without evidence for acute diverticulitis. 4. 2 cm hypodense focus within the lateral segment of the liver which is suboptimally assessed on thi s unenhanced exam. Focal fat is favored however a follow-up CT of the abdomen 6 months to ensure stab ility is recommended. ACT 112: Negative or not required by law. Electronically signed by: Lee Delgado M.D. 10/18/2019 12:55 PM
--- NOTE | 2019-10-18 14:47 | Hospitalist Progress Note ---
Date of Service October 18, 2019 Assessment & Plan (1) Syncope: Syncope Ventricular tachycardia Multiple episodes of NSVT on Pacer Interrogation IV amiodarone drip discontinued Continue amiodarone 200 mg twice a day Increase metoprolol to 25 mg daily, 12.5 mg in the evening Appreciate cardiology input Consider EP for evaluation of possible device upgrade to ICD Monitor on telemetry Coumadin on hold for possible procedure Acute Kidney Injury Likely due to diuretics Hold torsemide, Aldactone for now Gentle IV fluids given ischemic cardiomyopathy Monitor renal function Avoid nephrotoxic agents as able Abdominal pain --CT ABD:Mild dilatation of the proximal to mid appendix. However, no periappendiceal infiltration. Although not strongly suggestive, acute appendicitis cannot be excluded on this exam and correlation with right lower quadrant pain is recommended. If indicated, short-term follow-up CT is recommended with contrast. Mild pericholecystic infiltration without gallbladder distention. Findings could be correlated with right upper quadrant pain. No bowel obstruction. Colonic diverticulosis without evidence for acute diverticulitis. 2 cm hypodense focus within the lateral segment of the liver which is suboptimally assessed on this unenhanced exam. Focal fat is favored however a follow-up CT of the abdomen 6 months to ensure stability is recommended. --LFTs within normal limits -Consulted surgery for Input Chronic anemia Hemoglobin at baseline Monitor DM Type II A1C: 8.7 in August 2019 Continue insulin therapy while hospitalized Monitor BGs Chronic systolic heart failure H/O Ischemic Cardiomyopathy EF 40 to 45%, TTE 2019 Monitor volume status while on IV fluids Resume diuretics as able H/O CAD 2019 Cath: Multivessel disease not amenable for PCI High risk for CABG Continue Plavix, metoprolol, pravastatin Sick Sinus Syndrome S/P PPM Coumadin held for possible Procedure Monitor INR Continue amiodarone, metoprolol Hyperlipidemia on statin Hypothyroidism TSH Normal Continue levothyroxine DVT Px: SCDs Resume coumadin as able Code Status Full code Admission and Anticipated Discharge Date Admission Date: October 18, 2019 Subjective Patient is seen and examined at bedside Complains of generalized body ache, tiredness, dizziness, nausea and abdominal discomfort Denies any chest pain, shortness of breath Was on IV amiodarone drip this morning which was later discontinued Offers no other complaints Review of Systems Review of Systems: All systems reviewed & are unremarkable except as noted in HPI & below Physical Exam Physical Exam: Physical Exam: Vitals signs as noted above General Appearance:Elderly, no apparent distress Head: normocephalic, Atraumatic Eyes: normal inspection, EOMI Neck: supple, Trachea midline Respiratory/Chest: Normal breath sounds, CTA Cardiovascular: S1, S2, No murmur Abdomen/GI:Soft, + tender, Bowel sounds present Extremities/Musculoskelatal:normal inspection, no edema Neurologic/Psych:AAOX3, grossly no focal neurological deficits Skin: normal color, warm Results & Data Results & Data ([facility]) Vital Signs (Past 12 Hours) Vital Signs Temp Pulse Resp BP Pulse Ox 10/18/19 11:15 36.5 C 63 20 136/72 97 10/18/19 07:49 36.7 C 58 L 20 143/68 H 96 10/18/19 03:42 36.5 C 60 16 119/61 96 Laboratory Results Short CBC 10/17/19 10/18/19 Range/Units 21:10 07:20 WBC 12.64 H 9.22 (4.8-10.8) K/uL Hgb 10.4 L 9.2 L (14.0-18.0) g/dL Hct 33.6 L 30.6 L (42-52) % Plt Count 372 314 (130-400) K/uL BMP 10/17/19 10/18/19 21:10 07:20 Sodium 139 142 Potassium 4.6 4.2 Chloride 107 111 H Carbon Dioxide 23 27 BUN 23 H 23 H Creatinine 1.63 H 1.21 D Glucose 201 H 155 H Calcium 9.2 7.8 L D Cardiac Enzymes 10/17/19 Range/Units 21:10 Total Creatine Kinase 77 (39-308) U/L Troponin I 0.017 (0-0.045) ng/ml Liver Function 10/17/19 Range/Units 21:10 Total Bilirubin 0.3 (0.2-1) mg/dl AST 31 (15-37) U/L ALT 30 (12-78) U/L Alkaline Phosphatase 111 (45-117) U/L Albumin 3.2 L (3.4-5.0) gm/dl Urine 10/18/19 Range/Units 03:50 Urine Color Yellow Urine Appearance Clear (Clear) Urine pH 5.0 (4.5-7.5) Ur Specific [place] 1.022 (1.000-1.030) Urine Protein Negative (Negative) Urine Glucose (UA) Negative (Negative) (1) Syncope Syncope type: unspecified Qualified Code(s): R55 - Syncope and collapse
--- NOTE | 2019-10-18 15:14 | Cardiology Consultation ---
Date of Consultation October 18, 2019 Assessment & Plan (1) Ventricular tachycardia: He has developed a number of episodes of nonsustained ventricular tachycardia recently, however now has had a prolonged episode of sustained ventricular tachycardia (2 minutes in duration) which was recorded by his pacemaker at the time of his syncopal event. Electrograms are available which clearly show a ventricular rate of 160 bpm with A-V dissociation and a slow atrial rate. With sustained ventricular tachycardia and cardiomyopathy (even though his ejection fraction is not markedly reduced currently) he should have an ICD in place. This would be secondary prevention. I would recommend upgrading his pacemaker to a dual-chamber ICD. (2) Ischemic cardiomyopathy: He has an ischemic cardiomyopathy, initially very low ejection fraction but substantial recovery with medical therapy. Nevertheless he should have an ICD since he now has sustained ventricular tachycardia and this is not for primary prevention. (3) Paroxysmal A-fib: He has paroxysmal atrial fibrillation identified by his device, he had prolonged episodes in the fall and is on warfarin. He is currently in sinus rhythm and has not had atrial fibrillation for some time therefore it should be safe to discontinue anticoagulation for device replacement. Due to the long duration of warfarin I would anticipate that we could do this on October 21. (4) Sick sinus syndrome: He has sick sinus syndrome with sinus bradycardia and paroxysmal atrial fibrillation. He will need a dual-chamber device. History of Present Illness Reason for Consultation: Ventricular tachycardia Attending Physician: Tej Zuniga MD History of Present Illness This is an 79-year-old male who has a history of diabetes, coronary disease and a long history of syncope. His syncopal events went back into the 1970s and had been witnessed. He did have bifascicular block but no evidence of high-grade AV block therefore a loop recorder was implanted on June 22, 2011. Although no syncopal events were recorded he did have periods of symptomatic bradycardia and therefore a dual-chamber pacemaker was implanted April 25, 2013. The ventricular lead required repositioning January 31, 2014. More recently he was identified as having an ischemic cardiomyopathy in November 2018. His ejection fraction improved with medical therapy to 35 to 40% and ultimately to 40 to 45% more recently. At catheterization in 2018 he had multivessel coronary disease not amenable to intervention. He also has atrial fibrillation which was documented in the fall 2018 and he has been on warfarin. He presents now with recurrent syncope. Pacemaker evaluation (which I have for review) shows a number of episodes of monomorphic ventricular tachycardia, the most recent of which (and the one which caused his syncopal event) occurred October 17, 2019 and was a 2-minute episode at a heart rate of about 160 bpm. There were a number of prior episodes which were nonsustained and appeared to be a similar morphology when recorded by the device and an electrogram configuration from the pacemaker can to the right ventricular ring. He was hospitalized, placed on intravenous amiodarone and he has had no further ventricular tachycardia. Allergies Allergy/AdvReac Type Severity Reaction Status Date / Time aspirin Allergy Unknown DOES NOT Verified 10/17/19 23:24 TAKE D/T ASTHMA citric acid AdvReac Unknown Verified 10/17/19 23:24 [From Potential] NSAIDS (Non-Steroidal AdvReac Unknown Verified 10/17/19 23:24 Anti-Inflamma sodium bicarbonate AdvReac Unknown Verified 10/17/19 23:24 [From Potential] Home Medications Home Medications Medication Instructions Recorded Confirmed Type albuterol sulfate 2 puff INHALATION QID PRN 01/30/18 10/17/19 History metoprolol succinate 25 mg PO QAM 01/30/18 10/17/19 History omeprazole 20 mg PO QAM 07/25/18 10/17/19 History gabapentin 300 mg capsule 300 mg PO HS #90 cap 11/10/18 10/17/19 Rx acetaminophen [Tylenol] 325 mg PO Q6H PRN 11/23/18 10/17/19 History blood sugar diagnostic #200 ea 12/04/18 12/25/18 Rx insulin glargine 100 unit/mL (3 25 units SQ HS #15 ml 01/17/19 10/17/19 Rx mL) subcutaneous pen amiodarone 200 mg PO BID 02/20/19 10/17/19 History levothyroxine 75 mcg PO QAM 02/20/19 10/17/19 History spironolactone 12.5 mg PO MOWEFR 02/20/19 10/17/19 History torsemide 10 mg PO QAM 02/20/19 10/17/19 History polyethylene glycol 3350 [Miralax] 17 g PO DAILY 30 Days #30 ea 02/24/19 10/17/19 Rx pravastatin 40 mg tablet 40 mg PO HS #90 tab 02/17/20 07/29/20 Rx pen needle, diabetic 32 gauge x #200 ea 05/28/19 Rx " budesonide-formoterol HFA 160 2 puff INHALATION BID #10.2 gm 05/31/19 10/17/19 Rx mcg-4.5 mcg/actuation aerosol inhaler clopidogrel 75 mg tablet 75 mg PO QAM #30 tab 08/01/19 10/17/19 Rx escitalopram oxalate 10 mg PO DAILY 09/09/19 10/17/19 History warfarin 1.25 mg PO SUTUTH 09/09/19 10/17/19 History warfarin 2.5 mg PO MOWEFRSA 09/09/19 10/17/19 History zafirlukast 20 mg PO BID 09/09/19 10/17/19 History Patient History Medical History Adrenal insufficiency (Chronic) Anxiety (Chronic) Asthma (Chronic) Atrial fibrillation with RVR (Resolved) BPH (benign prostatic hyperplasia) (Chronic) Chronic renal insufficiency (Chronic) 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) Coronary artery disease (Chronic) multi-vessel disease - medical management Depression (Chronic) Diabetic neuropathy (Chronic) GERD (gastroesophageal reflux disease) (Chronic) Tena's thyroiditis (Chronic) History of non-ST elevation myocardial infarction (NSTEMI) (Resolved) Hyperlipidemia (Chronic) Hypertension (Chronic) Mural thrombus of heart (Acute) Noted on echo November 2018 Pacemaker (Chronic) dual chamber Paroxysmal atrial tachycardia (Chronic) Polymyalgia rheumatica (Chronic) Sick sinus syndrome (Chronic) Type 2 diabetes mellitus (Chronic) Vitamin D deficiency (Chronic) Surgical History History of temporal artery biopsy Family History Father Stroke Other Family history non-contributory Social History Smoking Status: Never smoker Second Hand Exposure: No; Do You Dip or Chew Tobacco: No; Tobacco Cessation Education Requested by Patient: No Hx Alcohol Use: No Hx Substance Use: No Preferred Language: Estonian Communication Ability: Effective Cashier And Salesperson Required: No Beliefs That Will Affect Care: None marital status: Unknown Current Living Situation: Family Current Living Situation Comment: DAUGHTER AND HER Other Information That Helps Us Care for You: No Feels Safe at Home: Yes Safety Concerns: Feels Safe At This Time caffeine: Yes Seatbelt Use: always Review of Systems Review of Systems: All systems reviewed & are unremarkable except as noted in HPI & below Physical Exam Physical Exam: Constitutional: Alert, cooperative and in no distress. HEENT: Unremarkable Neck: No jugular venous distention, carotid pulses are normal and equal bilaterally without bruits. Pulmonary: Clear to auscultation bilaterally. Cardiac: Regular rhythm with no murmur, gallop or rub. Abdomen: Soft, nontender with normal bowel sounds. Extremities: No edema. Distal pulses intact. Neurologic: No focal findings. Gait is steady. Skin: The device site is well-healed without erythema, swelling or tenderness. No rash, ecchymoses or petechiae. Results & Data ([facility]) Vital Signs (Past 12 Hours) Vital Signs Temp Pulse Resp BP Pulse Ox 10/18/19 11:15 36.5 C 63 20 136/72 97 10/18/19 07:49 36.7 C 58 L 20 143/68 H 96 10/18/19 03:42 36.5 C 60 16 119/61 96 Laboratory Results Cardiac Enzymes 10/17/19 Range/Units 21:10 AST 31 (15-37) U/L Troponin I 0.017 (0-0.045) ng/ml Coagulation 10/17/19 10/18/19 Range/Units 21:10 07: PT 26.6 H 24.6 H (9.0-12.0) Seconds CBC 10/17/19 10/18/19 Range/Units 21:10 07:20 WBC 12.64 H 9.22 (4.8-10.8) K/uL RBC 4.28 L 3.85 L (4.7-6.1) M/uL Hgb 10.4 L 9.2 L (14.0-18.0) g/dL Hct 33.6 L 30.6 L (42-52) % Plt Count 372 314 (130-400) K/uL Neut # (Auto) 9.12 H 5.98 (1.4-6.5) K/uL Lymph # (Auto) 1.29 1.49 (1.2-3.4) K/uL [place] # (Auto) 1.20 H 0.82 H (0.11-0.59) K/uL Eos # (Auto) 0.92 H 0.86 H (0-0.5) K/uL Baso # (Auto) 0.03 0.02 (0-0.2) K/uL Comprehensive Metabolic Panel 10/17/19 10/18/19 Range/Units 21:10 07:20 Sodium 139 142 (136-145) mmol/L Potassium 4.6 4.2 (3.5-5.1) mmol/L Chloride 107 111 H (98-107) mmol/L Carbon Dioxide 23 27 (21-32) mmol/L BUN 23 H 23 H (7-18) mg/dl Creatinine 1.63 H 1.21 D (0.6-1.4) mg/dl Glucose 201 H 155 H (70-99) mg/dl Calcium 9.2 7.8 L D (8.5-10.1) mg/dl AST 31 (15-37) U/L ALT 30 (12-78) U/L Alkaline Phosphatase 111 (45-117) U/L Total Protein 7.8 (6.4-8.2) gm/dl Albumin 3.2 L (3.4-5.0) gm/dl Intake and Output 10/18/19 10/18/19 10/18/19 06:59 14:59 22:59 Intake Total 765 / 765 78 / 78 Output Total 300 / 300 Balance 465 / 465 78 / 78 Intake: IV 765 / 765 78 / 78 NEXTERONE / D5W 150 mg In 100 100 / 100 ml @ 600 mls/hr IV NOW STA Rx#: [id number] NEXTERONE / D5W 360 mg In 200 200 / 200 78 / 78 ml @ 0.5 MG/MIN 16.667 mls/hr IV .Q12H KATHLEEN Rx#:[id number] Nss 1000ML 1,000 ml @ 100 mls/ 465 / 465 hr IV .Q10H KATHLEEN Rx#:[id number] Oral 0 / 0 Output: Urine 300 / 300 Other: Other Intake Source NPO Weight 88.7 kg Diagnostic Findings Telemetry: Atrial pacing with intact AV conduction, no ventricular tachycardia PG Care Time/CCT Total # of Minutes Spent Total Time Spent with Patient: Total time spent is greater than 50% in coordination of care (as documented) at patient's floor/unit and/or counseling patient: Coding Level of Care Code 00431 Initial Inpt Care Lvl 3 Diagnoses Ventricular tachycardia I47.2 Ischemic cardiomyopathy I25.5 Paroxysmal A-fib I48.0 Sick sinus syndrome I49.5
--- NOTE | 2019-10-18 16:12 | Surgery Consultation ---
Date of Consultation October 18, 2019 Assessment & Plan (1) Abdominal pain: This is an 79y M with PMH including HTN, SSS, HLD, afib on coumadin with pacer, DM, anxiety/depression, CKD, neuropathy and polymyalgia rheumatica who presented to the [facility] on 10/17/19 with a syncopal episode. We were consulted as patient voiced concerns of some abdominal pain prompting further imaging. A CT a/p was performed that showed mild dilatation of the proximal to mid appendix without periappendiceal infiltration. It also showed some mild pericholecystic infiltration without gallbladder distention. Labs reveal a WBC of 9 and yesterday's LFTs within normal limits. On examination patient has some mild dis comfort to palpation in the RLQ and mid-left abdomen, no acute findings. His CT scan read regarding the appendiceal dilation is similar to a CT performed in 08/2018 when he was admitted for abdominal pain. At that time conservative measures were recommended and patient's symptoms improved without surgical intervention. For now as patient's complaints are fairly non-specific and with no clear cut etiology for his pain we will recommend continuing to monitor patient for now with supportive care. Okay for a diet from our end. Will discuss with hospitalists starting patient on a course of abx for ? appendicitis. And with patient's extensive medical history we do not have plans for surgical intervention at this time. Patient seen and examined with Dr. Olivier. Supervising Physician Co-Signing Physician Notes As per Melissa Hill physician food and nutrition services assistant Patient has had abdominal pain off and on for approximately 2 years today he developed a little pain that in the lower abdomen a CT scan was obtained questioned appendicitis Patient has nonspecific findings in the right lower quadrant the rest of the abdomen is completely benign seems to have some discomfort in the left upper quadrant At this point we will reevaluate him tomorrow and if it persisted we will get a CT scan with contrast to better visualize the appendiceal area but for now there is no surgery indicated and hopefully can be avoided broad-spectrum antibiotics has been instituted History of Present Illness Attending Physician: Tej Zuniga MD History of Present Illness This is an 79y M with PMH including HTN, SSS, HLD, afib on coumadin with pacer, DM, anxiety/depression, CKD, neuropathy and polymyalgia rheumatica who presented to the [facility] ED on 10/17/19 with a syncopal episode. Hospitalists admitted the patient and he is also being worked up with a cardiology consultation. Today a CT scan was obtained as patient was complaining of generalized abdominal pain. CT a/p without contrast revealed mild dilatation of the proximal to mid appendix with no periappendiceal infiltration. It also showed mild pericholecystic infiltration without gallbladder distention and no evidence of bowel obstruction or diverticulitis. Surgery was consulted for further evaluation. When obtaining patient's history he reports he has had abdominal pain "for years." As of yesterday he states it had worsened some and was associated with nausea. Today he states it is somewhat better. He was able to eat some lunch without issues. His last BM was yesterday ad was normal. Patient is non-specific when he points to his abdomen regarding the pain at this time. Allergies Allergy/AdvReac Type Severity Reaction Status Date / Time aspirin Allergy Unknown DOES NOT Verified 10/17/19 23:24 TAKE D/T ASTHMA citric acid AdvReac Unknown Verified 10/17/19 23:24 [From [facility]] NSAIDS (Non-Steroidal AdvReac Unknown Verified 10/17/19 23:24 Anti-Inflamma sodium bicarbonate AdvReac Unknown Verified 10/17/19 23:24 [From [email or web address]] Home Medications Home Medications Medication Instructions Recorded Confirmed Type albuterol sulfate 2 puff INHALATION QID PRN 01/30/18 10/17/19 History metoprolol succinate 25 mg PO QAM 01/30/18 10/17/19 History omeprazole 20 mg PO QAM 07/25/18 10/17/19 History gabapentin 300 mg capsule 300 mg PO HS #90 cap 11/10/18 10/17/19 Rx acetaminophen [Tylenol] 325 mg PO Q6H PRN 11/23/18 10/17/19 History blood sugar diagnostic #200 ea 12/04/18 12/25/18 Rx insulin glargine 100 unit/mL (3 25 units SQ HS #15 ml 01/17/19 10/17/19 Rx mL) subcutaneous pen amiodarone 200 mg PO BID 02/20/19 10/17/19 History levothyroxine 75 mcg PO QAM 02/20/19 10/17/19 History spironolactone 12.5 mg PO MOWEFR 02/20/19 10/17/19 History torsemide 10 mg PO QAM 02/20/19 10/17/19 History polyethylene glycol 3350 [Miralax] 17 g PO DAILY 30 Days #30 ea 02/24/19 10/17/19 Rx pravastatin 40 mg tablet 40 mg PO HS #90 tab 05/07/19 10/17/19 Rx pen needle, diabetic 32 gauge x #200 ea 05/28/19 Rx 32" budesonide-formoterol HFA 160 2 puff INHALATION BID #10.2 gm 05/31/19 10/17/19 Rx mcg-4.5 mcg/actuation aerosol inhaler clopidogrel 75 mg tablet 75 mg PO QAM #30 tab 08/01/19 10/17/19 Rx escitalopram oxalate 10 mg PO DAILY 09/09/19 10/17/19 History warfarin 1.25 mg PO SUTUTH 09/09/19 10/17/19 History warfarin 2.5 mg PO MOWEFRSA 09/09/19 10/17/19 History zafirlukast 20 mg PO BID 09/09/19 10/17/19 History Patient History Medical History Adrenal insufficiency (Chronic) Anxiety (Chronic) Asthma (Chronic) Atrial fibrillation with RVR (Resolved) BPH (benign prostatic hyperplasia) (Chronic) Chronic renal insufficiency (Chronic) 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) Coronary artery disease (Chronic) multi-vessel disease - medical management Depression (Chronic) Diabetic neuropathy (Chronic) GERD (gastroesophageal reflux disease) (Chronic) Tena's thyroiditis (Chronic) History of non-ST elevation myocardial infarction (NSTEMI) (Resolved) Hyperlipidemia (Chronic) Hypertension (Chronic) Mural thrombus of heart (Acute) Noted on echo November 2018 Pacemaker (Chronic) dual chamber Paroxysmal atrial tachycardia (Chronic) Polymyalgia rheumatica (Chronic) Sick sinus syndrome (Chronic) Type 2 diabetes mellitus (Chronic) Vitamin D deficiency (Chronic) Surgical History History of temporal artery biopsy Family History Father Stroke Other Family history non-contributory Social History Smoking Status: Never smoker Second Hand Exposure: No; Do You Dip or Chew Tobacco: No; Tobacco Cessation Education Requested by Patient: No Hx Alcohol Use: No Hx Substance Use: No Preferred Language: Romanian Communication Ability: Effective Suction Worker Required: No Beliefs That Will Affect Care: None marital status: Unknown Current Living Situation: Family Current Living Situation Comment: DAUGHTER AND HER Other Information That Helps Us Care for You: No Feels Safe at Home: Yes Safety Concerns: Feels Safe At This Time caffeine: Yes Seatbelt Use: always Review of Systems Gastrointestinal: + abdominal pain (non specific abdominal discomfort) and + nausea; no vomiting normal BM yesterday Physical Exam Physical Exam: awake Constitutional: no acute distress Respiratory: normal respiratory effort Gastrointestinal (Abdomen): Inspection/Auscultation: abdomen not distended and no visible herniation Percussion/Palpation: + abdomen tender (mild ttp in RLQ and left-mid abdomen) and abdomen soft Results & Data Vital Signs (Past 12 Hours) Vital Signs Temp Pulse Resp BP BP Pulse Ox 10/18/19 15:38 36.4 C L 71 20 122/63 93 10/18/19 11:15 36.5 C 63 20 136/72 97 10/18/19 07:49 36.7 C 58 L 20 143/[address] OF THE ABDOMEN AND PELVIS WITHOUT CONTRAST CLINICAL HISTORY: Abdominal pain. COMPARISON STUDY: CT of the abdomen and pelvis February 20, 2019. TECHNIQUE: Axial images of the abdomen and pelvis were obtained without IV contrast. Images were reviewed in the axial, sagittal, and coronal planes. Automated exposure control was utilized for the study. A dose lowering technique was utilized adhering to the principles of ALARA. FINDINGS: Visualized portions of the lower lungs demonstrate mild groundglass op acities which favor atelectasis. No renal, ureteral or bladder calculi are present. There is no hydronephrosis. Evaluation of the remainder of the abdomen and pelvis is suboptimal on this unenhanced examination. The liver, spleen, adrenal glands and pancreas are unremarkable with exception of a 2 cm hypodense focus within the lateral segment of the liver on image 22 of 90. This was not evident on prior exam. There is mild infiltration adjacent to the gallbladder however the gallbladder is not distended. There is no evidence for a bowel obstruction. Colonic diverticulosis is noted without evidence for acute diverticulitis. There is mild dilatation of the proximal to mid appendix that measures 9 mm in caliber. The appendiceal tip is normal. There is no periappendiceal infiltration. No free air or abscess is present. Prostate is moderately enlarged. No suspicious osseous lesions are noted. There is no lymphadenopathy. IMPRESSION: 1. Mild dilatation of the proximal to mid appendix. However, no periappendiceal infiltration. Although not strongly suggestive, acute appendicitis cannot be excluded on this exam and correlation with right lower quadrant pain is recommended. If indicated, short-term follow-up CT is recommended with contrast. 2. Mild pericholecystic infiltration without gallbladder distention. Findings could be correlated with right upper quadrant pain. 3. No bowel obstruction. Colonic diverticulosis without evidence for acute diverticulitis. 4. 2 cm hypodense focus within the lateral segment of the liver which is suboptimally assessed on this unenhanced exam. Focal fat is favored however a follow-up CT of the abdomen 6 months to ensure stability is recommended. ACT 112: Negative or not required by law. Electronically signed by: Lee Delgado M.D. 10/18/2019 12:55 PM PG Care Time/CCT Total # of Minutes Spent Total Time Spent with Patient: Total time spent is greater than 50% in coordination of care (as documented) at patient's floor/unit and/or counseling patient: Coding Level of Care Code 58755 Initial Inpt Care Lvl 1 Diagnoses Abdominal pain R10.9 Abdominal location: unspecified location (1) Abdominal pain Abdominal location: unspecified location Qualified Code(s): R10.9 - Unspecified abdominal pain
[2019-10-18] MEDS: AMPICILLIN/SULBACTAM SOD 1,500 MG in 0.9 % SODIUM CHLORIDE 100 ML IV SCH ×2 (17:02→23:15)
[2019-10-18] MEDS: GABAPENTIN 300 MG CAP PO SCH (21:45)
[2019-10-18] MEDS: PRAVASTATIN SOD 40 MG TAB PO SCH (21:45)
[2019-10-19] MEDS: AMPICILLIN/SULBACTAM SOD 1,500 MG in 0.9 % SODIUM CHLORIDE 100 ML IV SCH ×4 (05:28→22:24)
--- NOTE | 2019-10-19 05:51 | Surgery Progress Note ---
Date of Service October 19, 2019 Assessment & Plan (1) Abdominal pain: Consider to get a CT scan of the abdomen with contrast since the one without contrast a question appendicitis but no clinical basis is completely benign there is no tenderness no pain afebrile therefore will hold off any fur ther studies at this time [facility] covering over the weekend Present on Admission?: Yes Subjective Patient had a very good night denies any abdominal pain Physical Exam Physical Exam: Is awake when I walked in the room laying on his left side comfortable His abdomen is completely benign I cannot elicit any pain or tenderness in right lower quadrant Results & Data Vital Signs (Past 12 Hours) Vital Signs Temp Pulse Pulse Resp BP Pulse Ox 10/19/19 04:03 37.1 C 71 16 131/64 98 10/18/19 22:20 73 10/18/19 20:17 37.0 C 72 20 133/65 98 PG Care Time/CCT Total # of Minutes Spent Total Time Spent with Patient: Total time spent is greater than 50% in coordination of care (as documented) at patient's floor/unit and/or counseling patient: Coding Level of Care Code 45116 Subseq Hosp Care Lvl 3 Diagnoses Abdominal pain R10.9
[2019-10-19] MEDS: LEVOTHYROXINE SODIUM 75 MCG TABLET PO SCH (05:57)
[2019-10-19] MEDS: INSULIN ASPART 100 UNITS/ML 3 ML PEN SC SCH ×6 (06:28→21:23)
[2019-10-19 06:32] LABS: Hematocrit (blood only) 31.2 % (42-52); Hemoglobin 9.3 g/dL (14.0-18.0); Mean Corpuscular Hemoglobin 23.6 pg (25-34); Mean Corpuscular Hgb Conc 29.8 g/dL (32-36); Mean Corpuscular Volume 79.2 fL (80-100); Mean Platelet Volume 10.7 fL (7.4-10.4); Platelet Count 327 K/uL (130-400); RDW Standard Deviation 49.7 fL (36.4-46.3); Red Blood Count 3.94 M/uL (4.7-6.1); White Blood Count 10.32 K/uL (4.8-10.8)
[2019-10-19 06:55] LABS: INR 1.7 (0.9-1.1); Prothrombin Time 17.3 Seconds (9.0-12.0)
[2019-10-19 07:00] LABS: BUN Creatinine Ratio 15.6 (10-20); Calcium 8.2 mg/dl (8.5-10.1); Est GFR (African American) 55.2; Est GFR (Non-African American) 47.6; Potassium 4.3 mmol/L (3.5-5.1)
[2019-10-19] MEDS ORDERED: Nursing to Pharmacy Communication SCH (07:15)
[2019-10-19] MEDS: INSULIN GLARGINE SOLOSTAR 100 UNITS/ML 3 ML PEN SC SCH ×2 (08:36→21:23)
[2019-10-19] MEDS: HEPARIN SOD 5,000 UNIT/0.5 ML VIAL SQ SCH ×2 (08:38→21:25)
[2019-10-19] MEDS: AMIODARONE 200 MG TAB PO SCH ×2 (08:40→21:25)
[2019-10-19] MEDS: FLUTICASONE/VILANTEROL 100/25MCG 14 PUFFS/INHALER INH SCH (08:40)
[2019-10-19] MEDS: ESCITALOPRAM OXALATE 10 MG TAB PO SCH (08:41)
[2019-10-19] MEDS: CLOPIDOGREL BISULFATE 75 MG TAB PO SCH (08:41)
[2019-10-19] MEDS: METOPROLOL SUCC 25MG EXT REL TAB PO SCH ×2 (08:41→21:26)
[2019-10-19] MEDS: PANTOprazole 40 MG TAB PO SCH (08:41)
[2019-10-19] MEDS: POLYETHYLENE (MIRALAX) 17 GM PACK PO SCH (08:44)
--- NOTE | 2019-10-19 11:37 | Cardiology Progress Note ---
Date of Service October 19, 2019 Assessment & Plan (1) Syncope: (2) Ventricular tachycardia: (3) Ischemic cardiomyopathy: (4) Chronic systolic heart failure: EKG with right bundle branch block morphology. Echocardiogram performed today reveals right coronary artery territory scar, with mild left ventricular systolic dysfunction, LVEF in the range of 40 to 45%. The echocardiographic findings do no suggest LV dyssynchrony. Coumadin on hold. He is on coumadin due to h/o PAF, and LV apical mural thrombus (thrombus resolved). INR down to 1.7 today. Case discussed with Dr Haley and we feel INR is at an acceptable range to allow device upgrade procedure to IDC. Patient without abdominal discomfort at present , and I do not think his presentation is due to appendicitis, but rather syncope due to ventricular tachycardia. Continue oral amiodarone 200 mg BID, Metoprolol succinate. Post device , will resume coumadin WITHOUT bridge therapy to reduce risk of pocket hematoma. Subjective Patient seen in follow-up of syncope, ventricular tachycardia noted on device interrogation, with underlying ischemic cardiomyopathy. He notes feeling well today. He denies abdominal discomfort. Telemetry reveals stable sinus rhythm in the range of 70 bpm. Review of Systems Review of Systems: All systems reviewed & are unremarkable except as noted in HPI & below Physical Exam Physical Exam: Coagulation 10/19/19 Range/Units 05:53 PT 17.3 H (9.0-12.0) [place] ds CBC 10/19/19 Range/Units 05:53 WBC 10.32 (4.8-10.8) K/uL RBC 3.94 L (4.7-6.1) M/uL Hgb 9.3 L (14.0-18.0) g/dL Hct 31.2 L (42-52) % Plt Count 327 (130-400) K/uL Comprehensive Metabolic Panel 10/19/19 Range/Units 05:53 Sodium 142 (136-145) mmol/L Potassium 4.3 (3.5-5.1) mmol/L Chloride 112 H (98-107) mmol/L Carbon Dioxide 25 (21-32) mmol/L BUN 21 H (7-18) mg/dl Creatinine 1.38 (0.6-1.4) mg/dl Glucose 114 H (70-99) mg/dl Calcium 8.2 L (8.5-10.1) mg/dl Intake and Output 10/18/19 10/19/19 10/19/19 22:59 06:59 14:59 Intake Total 1444 / 1880 358 / 1880 Output Total 400 / 900 500 / 900 Balance 1044 / 980 -142 / 980 Intake: IV 1104 / 1390 208 / 1390 Unasyn 1,500 m g In Sodium 104 / 312 208 / 312 Chloride 100 m l @ 200 mls/hr IV Q6H [facility] Rx#:[id number] Nss 1000ML 1,0 00 ml @ 60 mls/hr 1000 / 1000 IV .[id number] [facility] Rx#:[id number] Oral 340 / 490 150 / 490 Output: Urine 400 / 900 500 / 900 Other: Weight 88.4 kg Constitutional: WD/WN, vitals as above Respiratory: normal respiratory effort, lungs clear to auscultation Cardiovascular: RRR, no murmur, no edema Gastrointestinal (Abdomen): normal bowel sounds, soft, nontender, no h epatosplenomegaly Neurologic: PERRL, EOMI, accommodation nl, no face palsy, no dysarthria Results & Data Vital Signs (Past 12 Hours) Vital Signs Temp Pulse Resp BP Pulse Ox 10/19/19 07:58 36.3 C L 98 H 22 121/50 L 91 10/19/19 04:03 37.1 C 71 16 131/64 98 Laboratory Results Coagulation 10/19/19 Range/Units 05:53 PT 17.3 H (9.0-12.0) Seconds CBC 10/19/19 Range/Units 05:53 WBC 10.32 (4.8-10.8) K/uL RBC 3.94 L (4.7-6.1) M/uL Hgb 9.3 L (14.0-18.0) g/dL Hct 31.2 L (42-52) % Plt Count 327 (130-400) K/uL Comprehensive Metabolic Panel 10/19/19 Range/Units 05:53 Sodium 142 (136-145) mmol/L Potassium 4.3 (3.5-5.1) mmol/L Chloride 112 H (98-107) mmol/L Carbon Dioxide 25 (21-32) mmol/L BUN 21 H (7-18) mg/dl Creatinine 1.38 (0.6-1.4) mg/dl Glucose 114 H (70-99) mg/dl Calcium 8.2 L (8.5-10.1) mg/dl Intake and Output 10/18/19 10/19/19 10/19/19 22:59 06:59 14:59 Intake Total 1444 / 1880 358 / 1880 Output Total 400 / 900 500 / 900 Balance 1044 / 980 -142 / 980 Intake: IV 1104 / 1390 208 / 1390 Unasyn 1,500 mg In Sodium 104 / 312 208 / 312 Chloride 100 ml @ 200 mls/hr IV Q6H [facility] Rx#:[id number] Nss 1000ML 1,000 ml @ 60 mls/hr 1000 / 1000 IV .[id number] [facility] Rx#:[id number] Oral 340 / 490 150 / 490 Output: Urine 400 / 900 500 / 900 Other: Weight 88.4 kg (1) Syncope Syncope type: unspecified Qualified Code(s): R55 - Syncope and collapse
--- NOTE | 2019-10-19 12:12 | Communication Note ---
Date of Service: October 19, 2019 I called daughter, Mel, and update her on today's findings and plans to proceed with ICD today. She is on her way back from [place] and plans to visit him later today.
[2019-10-19] MEDS ORDERED: BACITRACIN INJ 50,000 UNIT VIAL ONE (13:48)
[2019-10-19] MEDS ORDERED: BACITRACIN OINT 0.9 GM PKT ONE (13:48)
[2019-10-19] MEDS ORDERED: LIDOCAINE HCL 1% 20 ML VIAL ONE (13:48)
[2019-10-19] MEDS ORDERED: fentaNYL citrate 100 MCG/2 ML VIAL ONE (14:19)
[2019-10-19] MEDS ORDERED: MIDAZOLAM HCL 1 MG/ML 2ML VIAL ONE (14:19)
[2019-10-19] MEDS ORDERED: CEFAZOLIN 250 MG/ML 1 GM VIAL ONE (14:20)
--- NOTE | 2019-10-19 14:26 | History & Physical Bridge Note ---
Date of Service October 19, 2019 History & Physical Bridge Note I have examined the patient, reviewed the History & Physical and in the interval since the performance of the History & Physical I have noted the following changes of clinical significance: no changes noted. Per my consultation I had intended to upgrade his device on Tuesday, however his INR dropped more quickly than expected and this morning at 6 AM it was only 1.7. That should be adequate for us to upgrade his device today. I reviewed the indications, procedure, risks and alternatives of device upgrade from a pacemaker to an ICD with him and he understands and agrees to proceed. Consent obtained. I also discussed conscious sedation he is agreeable. Consent obtained.
--- NOTE | 2019-10-19 15:55 | Electrophysiology Report ---
Date of Service October 19, 2019 Electrophysiology Procedure Electrophysiology Procedure Report Preoperative diagnosis: Sustained ventricular tachycardia Ischemic cardiomyopathy Postoperative diagnosis: Same Procedure: Left subclavian venogram ICD lead implantation Dual-chamber ICD implantation Surgeon: Karl Haley MD Estimated blood loss: 20 cc Complications: None Specimens: Old pacemaker, return to [employer] Disposition: Cardiology recovery Procedure details: After obtaining informed consent for the procedure, the patient was brought to the laboratory and prepped and draped in the standard sterile manner. Dye was injected the left arm IV site to opacify the left subclavian vein. The subclavian vein was identified and found to be relatively free of obstruction although there was a narrowing near the first rib and the clavicular junction. The left prepectoral region was anesthetized with 1% lidocaine local anesthetic and left axillary venipuncture was performed by percutaneous technique and a guidewire placed through the left subclavian vein into the superior vena cava. The area of narrowing was traversed easily. The area was further infiltrated with 1% lidocaine local anesthetic and a 7 cm incision was made through the old implant scar and carried down to the pacemaker, however the pacemaker was not removed from the pocket. A 10.5 [place] [employer] lead introducer was placed over the guidewire into the left subclavian vein, the dilator and guidewire were removed and a bipolar dual coil active fixation steroid tipped ventricular ICD lead was advanced through the introducer into the superior vena cava. A guidewire was placed through the i ntroducer and the introducer was stripped from the lead and guidewire. Using a curved stylette the ventricular lead was advanced through the right ventricular outflow tract into the pulmonary artery and then using a straight stylette was positioned in the right ventricular apex. The screw was extended fixing the lead in position. Pacing and sensing thresholds were evaluated in bipolar configuration and are recorded on the implant data sheet. Once the lead was in position it was attached to the anterior pectoralis fascia using 2 sutures of 2-0 silk around the lead collar. The pacemaker was then removed from the pocket and the leads were dissected free of tissue. A bacitracin soaked sponge was placed in the pocket. A biventricular ICD was attached to the leads, the configuration was the new ICD lead in the ICD port, the right ventricular pacing lead in the left ventricular pacing port and the atrial lead and the atrial port. This was done to allow future MRI compatibility. The bacitracin-soaked sponge was removed from the pocket, the pocket was enlarged in an inferior direction to allow for larger size of the ICD and hemostasis was obtained, the ICD was placed in the pocket with the leads coiled beneath it. The incision was closed with a running double subcutaneous closure of 3-0 Vicryl absorbable suture, followed by running subcuticular skin closure of 4-0 Vicryl absorbable suture. Bacitracin ointment was placed on the incision and a pressure dressing applied. [facility] Electrophysiology codes Indication for Procedure (1) Ventricular tachycardia: (2) Ischemic cardiomyopathy: ICD Procedure 1: ICD: 98168 Insert single or dual ICD system Miscellaneous Procedures Procedure 1: EP Miscellaneous: 39331 Contrast injection for venography Procedure 2: EP Miscellaneous: 13089-61 Vengraphy, extremity PG Moderate Sedation Codes Moderate Sedation Codes Procedure 1: Sedation/Anesthesia: 35701 Mod Sedation by the same physician;Init15 Min Child Age 5 & Up Procedure 2: Sedation/Anesthesia: 24178 Mod Sedation by the same physician; Ea [id number] Minutes
[2019-10-19] MEDS ORDERED: ACETAMINOPHEN W/CODEINE #3 1 TAB PO PRN (16:14)
[2019-10-19] MEDS ORDERED: ACETAMINOPHEN 325 MG TAB PO PRN (16:14)
--- NOTE | 2019-10-19 17:07 | Post Anesthesia Assessment ---
Date of Service October 19, 2019 Post Sedation Assessment Vital Signs Temp Pulse Pulse Resp BP Pulse Ox 10/19/19 16:29 36.3 C L 70 16 123/73 93 10/19/19 16:04 70 18 122/64 96 10/19/19 15:50 70 18 124/70 94 10/19/19 11:54 37.1 C 73 20 114/65 97 10/19/19 11:37 61 10/19/19 07:58 36.3 C L 98 H 22 121/50 L 91 10/19/19 04:03 37.1 C 71 16 131/64 98 10/18/19 22:20 73 10/18/19 20:17 37.0 C 72 20 133/65 98 10/18/19 17:23 70 Recovery Score Activity: Moves 4 extremities Respiration: Deep Breath/Cough Circulation: +/-20% PreAnes Value Consciousness: Fully Awake Oxygen Saturation: > 92% On Room Air Post Anesthesia Score: 6 Discharge Sedation Level of Care: Fast Track Phase II Post Sedation Plan On clinical assessment, the patient appears to have tolerated the sedation without complications. Patient is recovering as anticipated. Patient will continue to be monitored by nursing and may be discharged when sedation discharge criteria are met per below protocol. Upon Completions of procedure up to 15 minutes continue every 5 minute vital signs and the P.A.R. score; then discharge to a Phase I or Fast Track to Phase II per the following guidelines: * Discharge Patient to appropriate Phase II area if PAR is 8 or greater or return to pre- procedure baseline. The post - procedure orders will be as directed. * If PAR score is less than 8 or not return to pre-procedure baseline then patient will follow Phase I monitoring till PAR is reached for Phase II. The Phase I may be done in procedure room or may call to secure a Phase I area. * If naloxone or flumazenil are used for reversal, hold in Phase I for continued monitoring from when last reversal dose was given for a minimum of 60 minutes or longer pending the nurse and/or physician discretion of patient condition before discharge to Phase II. Please call the Sedation Physician to re-evaluate and complete post-note for discharge to Phase II area. Do NOT discharge from procedure sedation or Phase 1 until post- sedation evaluation note is complete by procedure /sedation MD Sedation Discharge Instructions to be given to the patient at discharge to home.
--- NOTE | 2019-10-19 18:11 | Hospitalist Progress Note ---
Date of Service October 19, 2019 Assessment & Plan (1) Syncope: Syncope Ventricular tachycardia Multiple episodes of NSVT on Pacer Interrogation S/P ICD implantation POD #0 Continue amiodarone 200 mg twice a day Increase metoprolol to 25 mg daily, 12.5 mg in the evening Appreciate cardiology/EP input Monitor on telemetry Chest x ray tmw to R/O Pneumothorax Resume Coumadin as able Acute Kidney Injury Likely due to diuretics Hold torsemide, Aldactone for now Received gentle IV fluids given ischemic cardiomyopathy Monitor renal function Avoid nephrotoxic agents as able Cr back to baseline Abdominal pain --CT ABD:Mild dilatation of the proximal to mid appendix. However, no periap pendiceal infiltration. Although not strongly suggestive, acute appendicitis cannot be excluded on this exam and correlation with right lower quadrant pain is recommended. If indicated, short-term follow-up CT is recommended with contrast. Mild pericholecystic infiltration without gallbladder distention. Findings could be correlated with right upper quadrant pain. No bowel obstruction. Colonic diverticulosis without evidence for acute diverticulitis. 2 cm hypodense focus within the lateral segment of the liver which is suboptimally assessed on this unenhanced exam. Focal fat is favored however a follow-up CT of the abdomen 6 months to ensure stability is recommended. --LFTs within normal limits --Appreciate surgery Input --Continue antibiotics Chronic anemia Hemoglobin at baseline Monitor DM Type II A1C: 8.7 in August 2019 Continue insulin therapy while hospitalized Monitor BGs Chronic systolic heart failure H/O Ischemic Cardiomyopathy EF 40 to 45%, TTE 2019 Monitor volume status while on IV fluids Resume diuretics as able H/O CAD 2019 Cath: Multivessel disease not amenable for PCI High risk for CABG Continue Plavix, metoprolol, pravastatin Sick Sinus Syndrome S/P PPM Monitor INR Continue amiodarone, metoprolol Resume coumadin as able Hyperlipidemia on statin Hypothyroidism TSH Normal Continue levothyroxine DVT Px: SCDs/Heparin SQ Resume coumadin as able Code Status Full code Disposition PT/OT prior to discharge Admission and Anticipated Discharge Date Admission Date: October 18, 2019 Subjective Patient is seen and examined at bedside States " I am exhausted" Abdominal pain resolved Denies any chest pain, shortness of breath, dizziness, nausea Offers no other complaints Discussed with Cardiology today Review of Systems Review of Systems: All systems reviewed & are unremarkable except as noted in HPI & below Physical Exam Physical Exam: Physical Exam: Vitals signs as noted above General Appearance:Elderly, no apparent distress Head: normocephalic, Atraumatic Eyes: normal inspection, EOMI Neck: supple, Trachea midline Respiratory/Chest: Normal breath sounds, CTA Cardiovascular: S1, S2, No murmur Abdomen/GI:Soft, non tender, Bowel sounds present Extremities/Musculoskelatal:normal inspection, no edema Neurologic/Psych:AAOX3, grossly no focal neurological deficits Skin: normal color, warm Results & Data Results & Data ([facility]) Vital Signs (Past 12 Hours) Vital Signs Temp Pulse Pulse Resp BP Pulse Ox 10/19/19 17:59 70 123/73 10/19/19 17:29 72 112/88 10/19/19 16:59 69 123/70 10/19/19 16:44 70 124/80 10/19/19 16:29 36.3 C L 70 16 123/73 93 10/19/19 16:20 70 10/19/19 16:04 70 18 122/64 96 10/19/19 15:50 70 18 124/70 94 10/19/19 11:54 37.1 C 73 20 114/65 97 10/19/19 11:37 61 10/19/19 07:58 36.3 C L 98 H 22 121/50 L 91 Laboratory Results Short CBC 10/19/19 Range/Units 05:53 WBC 10.32 (4.8-10.8) K/uL Hgb 9.3 L (14.0-18.0) g/dL Hct 31.2 L (42-52) % Plt Count 327 (130-400) K/uL [facility] 10/19/19 05:53 Sodium 142 Potassium 4.3 Chloride 112 H Carbon Dioxide 25 BUN 21 H Creatinine 1.38 Glucose 114 H Calcium 8.2 L (1) Syncope Syncope type: unspecified Qualified Code(s): R55 - Syncope and collapse
[2019-10-19] MEDS: GABAPENTIN 300 MG CAP PO SCH (21:26)
[2019-10-19] MEDS: PRAVASTATIN SOD 40 MG TAB PO SCH (21:26)
[2019-10-20] MEDS: AMPICILLIN/SULBACTAM SOD 1,500 MG in 0.9 % SODIUM CHLORIDE 100 ML IV SCH ×4 (05:47→21:31)
[2019-10-20] MEDS: LEVOTHYROXINE SODIUM 75 MCG TABLET PO SCH (05:47)
[2019-10-20 06:24] LABS: Hematocrit (blood only) 27.8 % (42-52); Hemoglobin 8.7 g/dL (14.0-18.0); Mean Corpuscular Hemoglobin 24.2 pg (25-34); Mean Corpuscular Hgb Conc 31.3 g/dL (32-36); Mean Corpuscular Volume 77.2 fL (80-100); Mean Platelet Volume 10.6 fL (7.4-10.4); Platelet Count 281 K/uL (130-400); RDW Coefficient of Variation 16.8 % (11.5-14.5); White Blood Count 9.16 K/uL (4.8-10.8)
[2019-10-20 06:34] LABS: INR 1.4 (0.9-1.1); Prothrombin Time 14.7 Seconds (9.0-12.0)
[2019-10-20 06:50] LABS: Calcium 7.9 mg/dl (8.5-10.1); Creatinine Clr Calc Pharmacy 49.5 ml/min; Est GFR (African American) 58.2; Est GFR (Non-African American) 50.2; Magnesium 2.1 mg/dl (1.8-2.4)
--- NOTE | 2019-10-20 07:22 | Electrocardiogram Report ---
Test Reason : Blood Pressure : / mmHG Vent. Rate : 070 BPM Atrial Rate : 070 BPM P-R Int : 316 ms QRS Dur : 194 ms QT Int : 486 ms P-R-T Axes : -12 -83 041 degrees QTc Int : 524 ms Atrial-paced rhythm with prolonged AV conduction Left axis deviation Right bundle branch block Septal infarct (cited on or before 17-OCT-2019) Abnormal ECG When compared with ECG of 17-OCT-2019 20:59, Premature ventricular complexes are no longer Present Confirmed by Karl Haley ([id number]) on 10/20/2019 7:22:13 AM Referred By: REFERRED SELF Confirmed By:Karl Haley
--- NOTE | 2019-10-20 07:29 | XRay Report ---
XR chest 2V PA/lateral CLINICAL HISTORY: EXACT TIME ORDERED Evaluate for pneumothorax and l COMPARISON STUDY: 10/17/2019 FINDINGS: Bipolar cardiac pacer/defibrillator in good position. Mild stable cardiomegaly. No evidence for pneumothorax. IMPRESSION: Cardiac pacer/defibrillator in good position. No evidence for pneumothorax. ACT 112: Negative or not required by law. The above report was generated using voice recognition software. It may contain grammatical, syntax or spelling errors. Electronically signed by: Kelby Solomon M.D. 10/20/2019 7:28 AM
[2019-10-20] MEDS: INSULIN ASPART 100 UNITS/ML 3 ML PEN SC SCH ×4 (08:09→21:34)
[2019-10-20] MEDS: HEPARIN SOD 5,000 UNIT/0.5 ML VIAL SQ SCH ×2 (08:10→21:33)
[2019-10-20] MEDS: INSULIN GLARGINE SOLOSTAR 100 UNITS/ML 3 ML PEN SC SCH ×2 (08:10→21:33)
[2019-10-20] MEDS: FLUTICASONE/VILANTEROL 100/25MCG 14 PUFFS/INHALER INH SCH (08:12)
[2019-10-20] MEDS: METOPROLOL SUCC 25MG EXT REL TAB PO SCH ×2 (08:12→21:36)
[2019-10-20] MEDS: AMIODARONE 200 MG TAB PO SCH ×2 (08:13→21:35)
[2019-10-20] MEDS: PANTOprazole 40 MG TAB PO SCH (08:13)
[2019-10-20] MEDS: ESCITALOPRAM OXALATE 10 MG TAB PO SCH (08:13)
[2019-10-20] MEDS: CLOPIDOGREL BISULFATE 75 MG TAB PO SCH (08:14)
[2019-10-20] MEDS: POLYETHYLENE (MIRALAX) 17 GM PACK PO SCH (08:14)
--- NOTE | 2019-10-20 10:44 | Surgery Progress Note ---
Date of Service October 20, 2019 Assessment & Plan (1) Abdominal pain: From abdominal pain standpoint it has resolved. Bowel obstruction has resolved Continue regular diet Continue to monitor No indication for surgical intervention at this time Subjective Denies abdominal complaints Has no abdominal pain Denies nausea and vomiting Tolerating regular diet Passing large amounts of flatus according to nursing Had bowel movement yesterday Had pacemaker placed yesterday Physical Exam Gastrointestinal (Abdomen): Inspection/Auscultation: abdomen not distended Percussion/Palpation: abdomen soft; abdomen nontender Results & Data Vital Signs (Past 12 Hours) Vital Signs Temp Pulse Pulse Resp BP BP Pulse Ox 10/20/19 07:33 36.8 C 72 19 126/88 98 10/20/19 04:00 37.2 C 67 16 121/67 98 10/19/19 23:59 73 10/19/19 23:17 37 C 69 16 118/68 96 Laboratory Results 10/20/19 10/20/19 10/20/19 Range/Units 07:09 05:40 05:40 WBC (4.8-10.8) K/uL RBC (4.7-6.1) M/uL Hgb (14.0-18.0) g/dL Hct (42-52) % MCV (80-100) fL MCH (25-34) pg MCHC (32-36) g/dL RDW Std Deviation (36.4-46.3) fL RDW Coeff of Andrew (11.5-14.5) % Plt Count (130-400) K/uL MPV (7.4-10.4) fL PT 14.7 H (9.0-12.0) Seconds INR 1.4 H (0.9-1.1) Sodium 141 (136-145) mmol/L Potassium 4.0 (3.5-5.1) mmol/L Chloride 112 H (98-107) mmol/L Carbon Dioxide 25 (21-32) mmol/L Anion Gap 4.0 (3-11) BUN 18 (7-18) mg/dl Creatinine 1.32 (0.6-1.4) mg/dl Est Cr Clr Drug Dosing 49.5 ml/min Est GFR ( Amer) 58.2 Est GFR (Non-Af Amer) 50.2 BUN/Creatinine Ratio 14.0 (10-20) Glucose 106 H (70-99) mg/dl POC Glucose 124 H (70-99) mg/dl Calcium 7.9 L (8.5-10.1) mg/dl Magnesium 2.1 (1.8-2.4) mg/dl 10/20/19 10/19/19 10/19/19 Range/Units 05:40 20:56 18:35 WBC 9.16 (4.8-10.8) K/uL RBC 3.60 L (4.7-6.1) M/uL Hgb 8.7 L (14.0-18.0) g/dL Hct 27.8 L (42-52) % MCV 77.2 L (80-100) fL MCH 24.2 L (25-34) pg MCHC 31.3 L (32-36) g/dL RDW Std Deviation 48.0 H (36.4-46.3) fL RDW Coeff of Andrew 16.8 H (11.5-14.5) % Plt Count 281 (130-400) K/uL MPV 10.6 H (7.4-10.4) fL PT (9.0-12.0) Seconds INR (0.9-1.1) Sodium (136-145) mmol/L Potassium (3.5-5.1) mmol/L Chloride (98-107) mmol/L Carbon Dioxide (21-32) mmol/L Anion Gap (3-11) BUN (7-18) mg/dl Creatinine (0.6-1.4) mg/dl Est Cr Clr Drug Dosing ml/min Est GFR ( Amer) Est GFR (Non-Af Amer) BUN/Creatinine Ratio (10-20) Glucose (70-99) mg/dl POC Glucose 185 H 105 H (70-99) mg/dl Calcium (8.5-10.1) mg/dl Magnesium (1.8-2.4) mg/dl 10/19/19 10/19/19 Range/Units 16:34 11:52 WBC (4.8-10.8) K/uL RBC (4.7-6.1) M/uL Hgb (14.0-18.0) g/dL Hct (42-52) % MCV (80-100) fL MCH (25-34) pg MCHC (32-36) g/dL RDW Std Deviation (36.4-46.3) fL RDW Coeff of Andrew (11.5-14.5) % Plt Count (130-400) K/uL MPV (7.4-10.4) fL PT (9.0-12.0) Seconds INR (0.9-1.1) Sodium (136-145) mmol/L Potassium (3.5-5.1) mmol/L Chloride (98-107) mmol/L Carbon Dioxide (21-32) mmol/L Anion Gap (3-11) BUN (7-18) mg/dl Creatinine (0.6-1.4) mg/dl Est Cr Clr Drug Dosing ml/min Est GFR ( Amer) Est GFR (Non-Af Amer) BUN/Creatinine Ratio (10-20) Glucose (70-99) mg/dl POC Glucose 135 H 155 H (70-99) mg/dl Calcium (8.5-10.1) mg/dl Magnesium (1.8-2.4) mg/dl
--- NOTE | 2019-10-20 12:29 | Cardiology Progress Note ---
Date of Service October 20, 2019 Assessment & Plan (1) Syncope: (2) Ischemic cardiomyopathy: (3) Ventricular tachycardia: Patient is on as an outpatient due to his history of paroxysmal atrial fibrillation and history of left ventricular apical mural thrombus. The mural thrombus has resolved on his most recent echocardiogram. INR today is 1.4. Chronic anemia noted, slightly worse than usual baseline. My initial plan was to resume his anticoagulation today, however he is not quite himself, I think it is most prudent to hold off on this. No bridge therapy is recommended in terms of full anticoagulation dose fractionated heparin, or low molecular weight heparin due to risk of pocket h ematoma. We will continue subcutaneous heparin, DVT prophylaxis dose while his INR is below goal and while he is still for the most part bedbound hospitalized. He may just be tired as a result of his long day yesterday in anticipation of his procedure, and then the sedation. We will continue to follow. Subjective Patient seen in follow-up having undergone upgrade to dual-chamber ICD yesterday. He is more lethargic than his typical baseline. He denies any planes including no abdominal discomfort. Vital signs are stable. Telemetry reveals stable sinus rhythm in the 70 bpm range. Device interrogation this morning revealed normal findings. EKG revealed appropriate lead placement without pneumothorax. Physical Exam Physical Exam: Temp Pulse Resp BP Pulse Ox 36.7 C 70 18 118/62 96 10/20/19 11:51 10/20/19 11:51 10/20/19 11:51 10/20/19 11:51 10/20/19 11:51 Constitutional: WD/WN, vitals as above Respiratory: normal respiratory effort, lungs clear to auscultation Cardiovascular: Rate/Rhythm: regular rhythm Heart Sounds: + murmur (1/6 systolic murmur) Vessels: no JVD Extremities: no edema Gastrointestinal (Abdomen): normal bowel sounds, soft, nontender, no hepatosplenomegaly Neurologic: More lethargic, no focal deficits Results & Data Vital Signs (Past 12 Hours) Vital Signs Temp Pulse Resp BP BP Pulse Ox 10/20/19 11:51 36.7 C 70 18 118/62 96 10/20/19 07:33 36.8 C 72 19 126/88 98 10/20/19 04:00 37.2 C 67 16 121/67 98 Laboratory Results Coagulation 10/20/19 Range/Units 05:40 PT 14.7 H (9.0-12.0) Seconds CBC 10/20/19 Range/Units 05:40 WBC 9.16 (4.8-10.8) K/uL RBC 3.60 L (4.7-6.1) M/uL Hgb 8.7 L (14.0-18.0) g/dL Hct 27.8 L (42-52) % Plt Count 281 (130-400) K/uL Comprehensive Metabolic Panel 10/20/19 Range/Units 05:40 Sodium 141 (136-145) mmol/L Potassium 4.0 (3.5-5.1) mmol/L Chloride 112 H (98-107) mmol/L Carbon Dioxide 25 (21-32) mmol/L BUN 18 (7-18) mg/dl Creatinine 1.32 (0.6-1.4) mg/dl Glucose 106 H (70-99) mg/dl Calcium 7.9 L (8.5-10.1) mg/dl Intake and Output 10/19/19 10/20/19 10/20/19 22:59 06:59 14:59 Intake Total 104 / 1061 458 / 1061 Output Total 200 / 200 Balance -96 / 861 458 / 861 Intake: IV 104 / 416 208 / 416 Unasyn 1,500 mg In Sodium 104 / 416 208 / 416 Chloride 100 ml @ 200 mls/hr IV Q6H [facility] Rx#:[id number] Oral 250 / 645 Output: Urine 200 / 200 Other: Other Intake Source sips # Unmeasured Voids 2 Weight 89.7 kg (1) Syncope Syncope type: unspecified Qualified Code(s): R55 - Syncope and collapse
[2019-10-20] MEDS ORDERED: WARFARIN SOD 5 MG TAB PO SCH (16:00)
--- NOTE | 2019-10-20 17:05 | Hospitalist Progress Note ---
Date of Service October 20, 2019 Assessment & Plan (1) Syncope: Syncope Ventricular tachycardia Multiple episodes of NSVT on Pacer Interrogation S/P ICD implantation POD #1 Continue amiodarone 200 mg twice a day Increase metoprolol to 25 mg daily, 12.5 mg in the evening Appreciate cardiology/EP input Monitor on telemetry Chest X ray showed no Pneumothorax Anemia, Metoprolol could be contributing to weakness/tiredness Acute Kidney Injury Likely due to diuretics Hold torsemide, Aldactone for now Received gentle IV fluids given ischemic cardiomyopathy Monitor renal function Avoid nephrotoxic agents as able Cr back to baseline Abdominal pain --CT ABD:Mild dilatation of the proximal to mid appendix. However, no periappendiceal infiltration. Although not strongly suggestive, acute appendicitis cannot be excluded on this exam and correlation with right lower quadrant pain is recommended. If indicated, short-term follow-up CT is recommended with contrast. Mild pericholecystic infiltration without gallbladder distention. Findings could be correlated with right upper quadrant pain. No bowel obstruction. Colonic diverticulosis without evidence for acute diverticulitis. 2 cm hypodense focus within the lateral segment of the liver which is suboptimally assessed on this unenhanced exam. Focal fat is favored however a follow-up CT of the abdomen 6 months to ensure stability is recommended. --LFTs within normal limits --Appreciate surgery Input --Continue IV Unasyn --Plan to transition to p.o. antibiotics tomorrow --Check Procalcitonin AM Chronic anemia Hemoglobin at baseline Monitor DM Type II A1C: 8.7 in August 2019 Continue insulin therapy while hospitalized Monitor BGs Chronic systolic heart failure H/O Ischemic Cardiomyopathy EF 40 to 45%, TTE 2019 Monitor volume status while on IV fluids Resume diuretics as able H/O CAD 2018 Cath: Multivessel disease not amenable for PCI High risk for CABG Continue Plavix, metoprolol, pravastatin Sick Sinus Syndrome S/P PPM Monitor INR Continue amiodarone, metoprolol Resume Coumadin as able SQ heparin while off Coumadin Hyperlipidemia on statin Hypothyroidism TSH Normal Continue levothyroxine DVT Px: SCDs/Heparin SQ Resume Coumadin as able Code Status Full code Disposition PT/OT prior to discharge Admission and Anticipated Discharge Date Admission Date: October 19, 2019 Subjective Patient is seen and examined at bedside Continues to complain of significant generalized weakness, tiredness Pacemaker interrogation within normal limits Chest x-ray showed no pneumothorax Abdominal pain resolved Denies chest pain, shortness of breath, nausea, dizziness Review of Systems Review of Systems: All systems reviewed & are unremarkable except as noted in HPI & below Physical Exam Physical Exam: Physical Exam: Vitals signs as noted above General Appearance:Elderly, no apparent distress Head: normocephalic, Atraumatic Eyes: normal inspection, EOMI Neck: supple, Trachea midline Respiratory/Chest: Normal breath sounds, CTA Cardiovascular: S1, S2, No murmur Abdomen/GI:Soft, non tender, Bowel sounds present Extremities/Musculoskelatal:normal inspection, no edema Neurologic/Psych:AAOX3, grossly no focal neurological deficits Skin: normal color, warm Results & Data Results & Data ([facility]) Vital Signs (Past 12 Hours) Vital Signs Temp Pulse Pulse Resp BP Pulse Ox 10/20/19 16:07 36.4 C L 69 18 126/71 99 10/20/19 11:51 36.7 C 70 18 118/62 96 10/20/19 07:33 36.8 C 72 19 126/88 98 10/20/19 07:00 73 Laboratory Results Short CBC 10/20/19 Range/Units 05:40 WBC 9.16 (4.8-10.8) K/uL Hgb 8.7 L (14.0-18.0) g/dL Hct 27.8 L (42-52) % Plt Count 281 (130-400) K/uL BMP 10/20/19 05:40 Sodium 141 Potassium 4.0 Chloride 112 H Carbon Dioxide 25 BUN 18 Creatinine 1.32 Glucose 106 H Calcium 7.9 L (1) Syncope Syncope type: unspecified Qualified Code(s): R55 - Syncope and collapse
[2019-10-20] MEDS: PRAVASTATIN SOD 40 MG TAB PO SCH (21:35)
[2019-10-20] MEDS: GABAPENTIN 300 MG CAP PO SCH (21:35)
[2019-10-21] MEDS: AMPICILLIN/SULBACTAM SOD 1,500 MG in 0.9 % SODIUM CHLORIDE 100 ML IV SCH ×2 (05:47→10:28)
[2019-10-21] MEDS: LEVOTHYROXINE SODIUM 75 MCG TABLET PO SCH (05:53)
[2019-10-21] MEDS: PANTOprazole 40 MG TAB PO SCH (08:08)
[2019-10-21] MEDS: INSULIN GLARGINE SOLOSTAR 100 UNITS/ML 3 ML PEN SC SCH ×2 (08:08→20:06)
[2019-10-21] MEDS: METOPROLOL SUCC 25MG EXT REL TAB PO SCH ×2 (08:08→19:59)
[2019-10-21] MEDS: CLOPIDOGREL BISULFATE 75 MG TAB PO SCH (08:08)
[2019-10-21] MEDS: ESCITALOPRAM OXALATE 10 MG TAB PO SCH (08:08)
[2019-10-21] MEDS: FLUTICASONE/VILANTEROL 100/25MCG 14 PUFFS/INHALER INH SCH (08:09)
[2019-10-21] MEDS: INSULIN ASPART 100 UNITS/ML 3 ML PEN SC SCH ×4 (08:09→20:06)
[2019-10-21] MEDS: AMIODARONE 200 MG TAB PO SCH ×2 (08:10→19:57)
[2019-10-21] MEDS: HEPARIN SOD 5,000 UNIT/0.5 ML VIAL SQ SCH ×2 (08:10→20:01)
[2019-10-21 08:12] LABS: Hematocrit (blood only) 30.6 % (42-52); Hemoglobin 9.5 g/dL (14.0-18.0)
[2019-10-21 08:16] LABS: INR 1.3 (0.9-1.1); Prothrombin Time 13.1 Seconds (9.0-12.0)
[2019-10-21 08:43] LABS: BUN Creatinine Ratio 11.8 (10-20); Calcium 8.7 mg/dl (8.5-10.1); Est GFR (African American) 58.8; Est GFR (Non-African American) 50.7
[2019-10-21] MEDS: POLYETHYLENE (MIRALAX) 17 GM PACK PO SCH (09:23)
--- NOTE | 2019-10-21 12:02 | Surgery Progress Note ---
Date of Service October 21, 2019 Assessment & Plan (1) Abdominal pain: Pain has resolved Good GI function No need for surgical intervention at this time Subjective Feels well Denies abdominal pain Denies nausea and vomiting Tolerated regular diet Having bm's and passing flatus Physical Exam Gastrointestinal (Abdomen): Inspection/Auscultation: normal bowel sounds; abdomen not distended Percussion/Palpation: abdomen soft; abdomen nontender Results & Data Vital Signs (Past 12 Hours) Vital Signs Temp Pulse Resp BP Pulse Ox 10/21/19 11:35 36.6 C 71 19 128/69 95 10/21/19 07:29 36.7 C 64 17 119/63 95 10/21/19 02:36 36.8 C 72 22 133/73 97
--- NOTE | 2019-10-21 12:13 | Cardiology Progress Note ---
Date of Service October 21, 2019 Assessment & Plan (1) Syncope: (2) Ischemic cardiomyopathy: (3) Ventricular tachycardia: Patient with history of paroxysmal atrial fibrillation. Resume Coumadin today. He typically alternates between 1.25 and 2.5 mg daily. Start 2.5 mg daily. Continue amiodarone 200 mg twice daily. S/p device upgrade from dual chamber pacemaker to ICD. Pt to remain in hospital to get stronger. Trending toward improvement. Subjective Patient feeling improved today, generalized achiness improved, mental status improved. He is still not quite back to his baseline. Telemetry reveals stable sinus rhythm with first-degree AV block in the 70s. Physical Exam Physical Exam: Temp Pulse Resp BP Pulse Ox 36.6 C 71 19 128/69 95 10/21/19 11:35 10/21/19 11:35 10/21/19 11:35 10/21/19 11:35 10/21/19 11:35 Constitutional: WD/WN, vitals as above Cardiovascular: RRR, no murmur, no edema Chest (Breasts): Additional Comments: Left infraclavicular device pocket clean dry and intact, dressing changed personally Gastrointestinal (Abdomen): normal bowel sounds, soft, nontender, no hepatosplenomegaly Neurologic: PERRL, EOMI, accommodation nl, no face palsy, no dysarthria Results & Data Vital Signs (Past 12 Hours) Vital Signs Temp Pulse Resp BP Pulse Ox 10/21/19 11:35 36.6 C 71 19 128/69 95 10/21/19 07:29 36.7 C 64 17 119/63 95 10/21/19 02:36 36.8 C 72 22 133/73 97 Laboratory Results Coagulation INR 1.3 today 10/21/19 10/21/19 Range/Units 07:55 PT 13.1 H (9.0-12.0) Seconds CBC 10/21/19 Range/Units 07:56 Hgb 9.5 L (14.0-18.0) g/dL Hct 30.6 L (42-52) % Comprehensive Metabolic Panel 10/21/19 Range/Units 07:56 Sodium 139 (136-145) mmol/L Potassium 4.0 (3.5-5.1) mmol/L Chloride 108 H (98-107) mmol/L Carbon Dioxide 23 (21-32) mmol/L BUN 16 (7-18) mg/dl Creatinine 1.31 (0.6-1.4) mg/dl Glucose 111 H (70-99) mg/dl Calcium 8.7 (8.5-10.1) mg/dl Intake and Output 10/20/19 10/21/19 10/21/19 22:59 06:59 14:59 Intake Total 558 / 766 104 / 766 104 / 104 Output Total 250 / 501 250 / 501 Balance 308 / 265 -146 / 265 104 / 104 Intake: IV 208 / 416 104 / 416 104 / 104 Unasyn 1,500 mg In Sodium 208 / 416 104 / 416 104 / 104 Chloride 100 ml @ 200 mls/hr IV Q6H [facility] Rx#:[id number] Oral 350 / 350 Output: Urine 250 / 500 250 / 500 Other: Weight 90.3 kg (1) Syncope Syncope type: unspecified Qualified Code(s): R55 - Syncope and collapse
[2019-10-21] MEDS: TORSEMIDE 10 MG TAB PO SCH (12:49)
--- NOTE | 2019-10-21 14:28 | Communication Note ---
Date of Service: October 21, 2019 I called and updated daughter, Mel.
--- NOTE | 2019-10-21 14:57 | Hospitalist Progress Note ---
Date of Service October 21, 2019 Assessment & Plan (1) Syncope: Syncope Ventricular tachycardia Multiple episodes of NSVT on Pacer Interrogation S/P ICD implantation POD #2 Continue amiodarone 200 mg twice a day Increase metoprolol to 25 mg daily, 12.5 mg in the evening Appreciate cardiology/EP input Monitor on telemetry Chest X ray showed no Pneumothorax Improved Continue current medications Acute Kidney Injury Likely due to diuretics Received gentle IV fluids given ischemic cardiomyopathy Monitor renal function Avoid nephrotoxic agents as able Cr back to baseline Resume diuretics Abdominal pain --CT ABD:Mild dilatation of the proximal to mid appendix. However, no per iappendiceal infiltration. Although not strongly suggestive, acute appendicitis cannot be excluded on this exam and correlation with right lower quadrant pain is recommended. If indicated, short-term follow-up CT is recommended with contrast. Mild pericholecystic infiltration without gallbladder distention. Findings could be correlated with right upper quadrant pain. No bowel obstruction. Colonic diverticulosis without evidence for acute diverticulitis. 2 cm hypodense focus within the lateral segment of the liver which is suboptimally assessed on this unenhanced exam. Focal fat is favored however a follow-up CT of the abdomen 6 months to ensure stability is recommended. --LFTs within normal limits --Appreciate surgery Input --Received IV Unasyn --Normal Procalcitonin levels --Transition to Augmentin today Chronic anemia Hemoglobin at baseline Monitor DM Type II A1C: 8.7 in August 2019 Continue insulin therapy while hospitalized Monitor BGs Chronic systolic heart failure H/O Ischemic Cardiomyopathy EF 40 to 45%, TTE 2019 Monitor volume status while on IV fluids Resume diuretics as able H/O CAD 2018 Cath: Multivessel disease not amenable for PCI High risk for CABG Continue Plavix, metoprolol, pravastatin Sick Sinus Syndrome S/P PPM Monitor INR Continue amiodarone, metoprolol Resume Coumadin today SQ heparin till INR in therapeutic range Hyperlipidemia on statin Hypothyroidism TSH Normal Continue levothyroxine DVT Px: Heparin SQ till INR is therapeutic Coumadin Code Status Full code Disposition PT/OT prior to discharge Admission and Anticipated Discharge Date Admission Date: October 19, 2019 Subjective Patient is seen and examined at bedside Feels better today No new complaints Discussed with Cardiology today Generalized weakness improving Denies chest pain, SOB, nausea, abd pain, dizziness Review of Systems Review of Systems: All systems reviewed & are unremarkable except as noted in HPI & below Physical Exam Physical Exam: Physical Exam: Vitals signs as noted above General Appearance:Elderly, no apparent distress Head: normocephalic, Atraumatic Eyes: normal inspection, EOMI Neck: supple, Trachea midline Respiratory/Chest: Normal breath sounds, CTA Cardiovascular: S1, S2, No murmur Abdomen/GI:Soft, non tender, Bowel sounds present Extremities/Musculoskelatal:normal inspection, no edema Neurologic/Psych:AAOX3, grossly no focal neurological deficits Skin: normal color, warm Results & Data Results & Data ([facility]) Vital Signs (Past 12 Hours) Vital Signs Temp Pulse Resp BP Pulse Ox 10/21/19 11:35 36.6 C 71 19 128/69 95 10/21/19 07:29 36.7 C 64 17 119/63 95 Laboratory Results Short CBC 10/21/19 Range/Units 07:56 Hgb 9.5 L (14.0-18.0) g/dL Hct 30.6 L (42-52) % BMP 10/21/19 07:56 Sodium 139 Potassium 4.0 Chloride 108 H Carbon Dioxide 23 BUN 16 Creatinine 1.31 Glucose 111 H Calcium 8.7 (1) Syncope Syncope type: unspecified Qualified Code(s): R55 - Syncope and collapse
[2019-10-21] MEDS ORDERED: WARFARIN SOD 2.5 MG TAB PO SCH (16:00)
[2019-10-21] MEDS: AMOXICILLIN/CLAVULANATE 500 MG TAB PO SCH (16:59)
[2019-10-21] MEDS: PRAVASTATIN SOD 40 MG TAB PO SCH (19:58)
[2019-10-21] MEDS: GABAPENTIN 300 MG CAP PO SCH (19:58)
[2019-10-22] MEDS: LEVOTHYROXINE SODIUM 75 MCG TABLET PO SCH (05:18)
[2019-10-22 06:08] LABS: Hematocrit (blood only) 28.4 % (42-52)
[2019-10-22 06:24] LABS: INR 1.2 (0.9-1.1)
[2019-10-22 06:42] LABS: BUN Creatinine Ratio 12.4 (10-20); Calcium 8.3 mg/dl (8.5-10.1); Creatinine Clr Calc Pharmacy 43.7 ml/min; Est GFR (African American) 50.3; Est GFR (Non-African American) 43.4
[2019-10-22] MEDS: INSULIN ASPART 100 UNITS/ML 3 ML PEN SC SCH ×2 (08:01→11:53)
[2019-10-22] MEDS: INSULIN GLARGINE SOLOSTAR 100 UNITS/ML 3 ML PEN SC SCH (08:04)
[2019-10-22] MEDS: HEPARIN SOD 5,000 UNIT/0.5 ML VIAL SQ SCH (08:04)
[2019-10-22] MEDS: FLUTICASONE/VILANTEROL 100/25MCG 14 PUFFS/INHALER INH SCH (08:04)
[2019-10-22] MEDS: AMOXICILLIN/CLAVULANATE 500 MG TAB PO SCH (08:05)
[2019-10-22] MEDS: TORSEMIDE 10 MG TAB PO SCH (08:05)
[2019-10-22] MEDS: PANTOprazole 40 MG TAB PO SCH (08:05)
[2019-10-22] MEDS: METOPROLOL SUCC 25MG EXT REL TAB PO SCH (08:05)
[2019-10-22] MEDS: ESCITALOPRAM OXALATE 10 MG TAB PO SCH (08:05)
[2019-10-22] MEDS: CLOPIDOGREL BISULFATE 75 MG TAB PO SCH (08:05)
[2019-10-22] MEDS: POLYETHYLENE (MIRALAX) 17 GM PACK PO SCH (08:05)
[2019-10-22] MEDS: AMIODARONE 200 MG TAB PO SCH (08:05)
[2019-10-22] MEDS ORDERED: SPIRONOLACTONE 12.5 MG TAB PO SCH (09:00)
--- NOTE | 2019-10-22 11:08 | Cardiology Progress Note ---
Date of Service October 22, 2019 Assessment & Plan (1) Syncope: (2) Ischemic cardiomyopathy: (3) Ventricular tachycardia: Patient states he feels back to himself, and he feels ready for discharge. Post procedure wound check, device interrogation already scheduled for 10/31/2019, 10:15 AM, Cyndi Anand. Post hospital follow-up scheduled with Kelby Dasilva PA-C 11/06/2019, 3 PM, Cyndi Anand. Patient is on Coumadin as an outpatient due to his history of paroxysmal atrial fibrillation and left ventricular mural thrombus. The LV mural thrombus was noted to have resolved on his most recent echocardiogram performed during this hospital stay. Recommend with proceeding with outpatient Coumadin reloading without bridge therapy in an effort to reduce the risk of pocket hematoma. His previous Coumadin dose had been 1.25 mg every Tuesday, Tuesday, , and 2.5 mg on the other days, however his amiodarone was recently increased 200 mg twice daily, so this will need to be followed closely. Discharge on his prior to hospital dose of torsemide and spironolactone. He is on chronic treatment with clopidogrel having had a non-STEMI in November 2018. Continue with clopidogrel plus Coumadin, no aspirin. Subjective Patient seen in follow-up of his history of ischemic cardiomyopathy, presentation with syncope, ventricular tachycardia prompting upgrade of his dual-chamber permanent pacemaker device to a dual-chamber AICD on 10/19/2019. He states that he is feeling back to himself today. Blood pressure is stable. Telemetry reveals sinus rhythm with first-degree AV block in the 70s. INR today 1.2. Creatinine of 1.49, slightly higher than his previous baseline of 1.2-1.3. Review of Systems Review of Systems: All systems reviewed & are unremarkable except as noted in HPI & below Physical Exam Physical Exam: Temp Pulse Resp BP Pulse Ox 36.7 C 70 17 129/65 98 10/22/19 07:58 10/22/19 07:58 10/22/19 07:58 10/22/19 07:58 10/22/19 07:58 Constitutional: WD/WN, vitals as above Respiratory: normal respiratory effort, lungs clear to auscultation Cardiovascular: RRR, no murmur, no edema Chest (Breasts): Additional Comments: Left infraclavicular pocket is clean dry and intact, incision healing well, no erythema no drainage. The dressing was removed, and it is left open to air at present. Gastrointestinal (Abdomen): normal bowel sounds, soft, nontender, no hepatosplenomegaly Neurologic: PERRL, EOMI, accommodation nl, no face palsy, no dysarthria Results & Data Vital Signs (Past 12 Hours) Vital Signs Temp Pulse Pulse Resp BP Pulse Ox 10/22/19 07:58 36.7 C 70 17 129/65 98 10/22/19 07:25 70 10/22/19 02:28 36.8 C 71 16 110/62 98 10/21/19 23:24 36.7 C 70 18 143/74 H 98 Laboratory Results Coagulation 10/22/19 Range/Units 05:43 PT 13.0 H (9.0-12.0) Seconds CBC 10/22/19 Range/Units 05:43 Hgb 9.0 L (14.0-18.0) g/dL Hct 28.4 L (42-52) % Comprehensive Metabolic Panel 10/22/19 Range/Units 05:43 Sodium 140 (136-145) mmol/L Potassium 4.0 (3.5-5.1) mmol/L Chloride 108 H (98-107) mmol/L Carbon Dioxide 26 (21-32) mmol/L BUN 19 H (7-18) mg/dl Creatinine 1.49 H (0.6-1.4) mg/dl Glucose 114 H (70-99) mg/dl Calcium 8.3 L (8.5-10.1) mg/dl Intake and Output 10/21/19 10/22/19 10/22/19 22:59 06:59 14:59 Intake Total 375 / 1419 Output Total 1 / 2 Balance 374 / 1417 Intake: Oral 375 / 1315 Output: # Bowel Movements 1 / 2 Other: # Unmeasured Voids 1 1 Weight 89.3 kg (1) Syncope Syncope type: unspecified Qualified Code(s): R55 - Syncope and collapse
--- NOTE | 2019-10-22 13:28 | Hospitalist Progress Note ---
Date of Service October 22, 2019 Assessment & Plan (1) Syncope: Syncope Ventricular tachycardia Multiple episodes of NSVT on Pacer Interrogation S/P ICD implantation POD #3 Continue amiodarone 200 mg twice a day Increase metoprolol to 25 mg daily, 12.5 mg in the evening Appreciate cardiology/EP input Monitor on telemetry Chest X ray showed no Pneumothorax Improved Continue current medications Needs follow up with Cardiology Upon discharge Acute Kidney Injury Likely due to diuretics Received gentle IV fluids given ischemic cardiomyopathy Monitor renal function Avoid nephrotoxic agents as able Resume home diuretics Abdominal pain --CT ABD:Mild dilatation of the proximal to mid appendix. However, no periappendiceal infiltration. Although not strongly suggestive, acute appendicitis cannot be excluded on this exam and correlation with right lower quadrant pain is recommended. If indicated, short-term follow-up CT is recommended with contrast. Mild pericholecystic infiltration without gallbladder distention. Findings could be correlated with right upper quadrant pain. No bowel obstruction. Colonic diverticulosis without evidence for acute diverticulitis. 2 cm hypodense focus within the lateral segment of the liver which is suboptimally assessed on this unenhanced exam. Focal fat is favored however a follow-up CT of the abdomen 6 months to ensure stability is recommended. --LFTs within normal limits --Appreciate surgery Input --Received IV Unasyn --Normal Procalcitonin levels --Transitioned to Augmentin Chronic anemia Hemoglobin at baseline Monitor DM Type II A1C: 8.7 in August 2019 Continue insulin therapy while hospitalized Monitor BGs Chronic systolic heart failure H/O Ischemic Cardiomyopathy EF 40 to 45%, TTE 2019 Monitor volume status Continue home diuretics H/O CAD 2018 Cath: Multivessel disease not amenable for PCI High risk for CABG Continue Plavix, metoprolol, pravastatin Sick Sinus Syndrome S/P PPM Monitor INR Continue amiodarone, metoprolol Continue Coumadin Hyperlipidemia on statin Hypothyroidism TSH Normal Continue levothyroxine DVT Px: Coumadin Code Status Full code Disposition PT/OT eval done Plan to discharge home today Admission and Anticipated Discharge Date Admission Date: October 19, 2019 Subjective Patient is seen and examined at bedside No new complaints Discussed with Cardiology today Denies chest pain, SOB, nausea, abd pain, dizziness Plan to discharge home today Review of Systems Review of Systems: All systems reviewed & are unremarkable except as noted in HPI & below Physical Exam Physical Exam: Physical Exam: Vitals signs as noted above General Appearance:Elderly, no apparent distress Head: normocephalic, Atraumatic Eyes: normal inspection, EOMI Neck: supple, Trachea midline Respiratory/Chest: Normal breath sounds, CTA Cardiovascular: S1, S2, No murmur Abdomen/GI:Soft, non tender, Bowel sounds present Extremities/Musculoskelatal:normal inspection, no edema Neurologic/Psych:AAOX3, grossly no focal neurological deficits Skin: normal color, warm Results & Data Results & Data ([facility]) Vital Signs (Past 12 Hours) Vital Signs Temp Pulse Pulse Resp BP Pulse Ox 10/22/19 11:51 99 10/22/19 11:47 36.7 C 71 18 126/68 99 10/22/19 07:58 36.7 C 70 17 129/65 98 10/22/19 07:25 70 10/22/19 02:28 36.8 C 71 16 110/62 98 Laboratory Results Short CBC 10/22/19 Range/Units 05:43 Hgb 9.0 L (14.0-18.0) g/dL Hct 28.4 L (42-52) % BMP 10/22/19 05:43 Sodium 140 Potassium 4.0 Chloride 108 H Carbon Dioxide 26 BUN 19 H Creatinine 1.49 H Glucose 114 H Calcium 8.3 L (1) Syncope Syncope type: unspecified Qualified Code(s): R55 - Syncope and collapse
--- NOTE | 2019-10-22 13:42 | Discharge Summary ---
Date of Service October 22, 2019 Admission HPI Per Admitting Provider History obtained from patient, family, and records. Medical history significant for chronic systolic heart failure secondary to ischemic cardiomyopathy (EF 40 to 45%, TTE 2019), history CAD as per records, SSS status post PPM on Coumadin, history NSVT as per records, hypertension, hyperlipidemia, DM 2 insulin requiring, hypothyroidism, chronic anemia (baseline hemoglobin 9-10), polymyalgia rheumatica/adrenal insufficiency as per records. Patient confined on 2 occasions last last month. September 08 for syncope attributed to orthostasis. September 14 4 severe sepsis secondary to hospital-acquired pneumonia. Patient seen at [facility] 2 days ago. Occasional woozy feeling as per patient as per provider note. NSVT episodes totaling 21 on ICD interrogation spanning September 08 to October 15 as per provider note. Amiodarone increased to 200 mg twice daily for arrhythmia suppression. Consideration for AICD upgrade as per note. Patient had a syncopal event at home last night while gardening witnessed by gianluca shaver. No premonitory dizziness symptoms. Patient out for a few moments. No witnessed seizures as per family. Patient somewhat confused when he woke up. Transient achy headache, S OB symptoms. Patient denies chest pain, cough symptoms. Compliant with home meds. Eating okay as per family. Multiple episodes of VT noted on ICD interrogation at the ER. IV Amiodarone infusion initiated at the ER following recommendations of patient's simonizer. 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, lives with daughter Admission Exam Per Admitting Provider GENERAL: Comfortable, slightly hard of hearing, pleasant, no respiratory distress SKIN: Pallor , warm HEENT: Pale palpebral conjunctivae, chronic ptosis, dry buccal mucosa NECK : Supple, no tenderness CHEST : CTA, no tenderness HEART : RRR, no obvious murmurs ABDOMEN: Some distention, nontender EXTREMITIES : Minimal LE swelling, no LE tenderness, no other conspicuous def ormities noted NEUROLOGIC : Coherent, no facial asymmetry, mild hearing impairment, no other gross focality Principal Diagnosis Syncope Ventricular tachycardia Acute Kidney Injury Abdominal Pain Discharge Data Allergies Allergy/AdvReac Type Severity Reaction Status Date / Time aspirin Allergy Unknown DOES NOT Verified 10/17/19 23:24 TAKE D/T ASTHMA citric acid AdvReac Unknown Verified 10/17/19 23:24 [[facility]] NSAIDS (Non-Steroidal AdvReac Unknown Verified 10/17/19 23:24 Anti-Inflamma sodium bicarbonate AdvReac Unknown Verified 10/17/19 23:24 [From [facility]] Consultations 10/18/19 00:31 ED Decision to Admit Stat 10/18/19 01:22 Consult Cardiology Routine 10/18/19 10:19 Consult Cardiac Electrophysiology Routine 10/18/19 14:23 Consult General Surgery Routine Procedures Performed Operation Date: 10/19/19 13:00 Actual Procedures p Insertion ICD w/Existing Dual(Not Applicable) - Karl Haley MD s Venogram, Unilateral - Karl Haley MD --CT ABD:Mild dilatation of the proximal to mid appendix. However, no periappe ndiceal infiltration. Although not strongly suggestive, acute appendicitis cannot be excluded on this exam and correlation with right lower quadrant pain is recommended. If indicated, short-term follow-up CT is recommended with contrast. Mild pericholecystic infiltration without gallbladder distention. Findings could be correlated with right upper quadrant pain. No bowel obstruction. Colonic diverticulosis without evidence for acute diverticulitis. 2 cm hypodense focus within the lateral segment of the liver which is suboptimally assessed on this unenhanced exam. Focal fat is favored however a follow-up CT of the abdomen 6 months to ensure stability is recommended. Head CT: No intra or extra-axial mass lesions are visualized. There is no CT evidence of acute cortical infarction. There is no evidence of midline shift. There is no acute hemorrhage. No calvarial fractures are visualized. There are patchy white matter hypodensities likely on a small vessel basis. There is basal ganglial mineralization. There is no evidence of pathologic ventricular dilatation. There is chronic mucosal disease in the paranasal sinuses. There is chronic opacification of the left sphenoid. There are postsurgical changes of bilateral medial antrectomies. CXR: Cardiomegaly and mild basilar interstitial thickening. Ordered Studies 10/17/19 21:10 CT cervical spine wo con Urgent CT head/brain wo con Urgent 10/18/19 11:59 CT abd pelvis wo con Routine 10/19/19 14:16 CL Cath Imgs for PACS use only Routine Hospital Course (1) Syncope: Syncope Ventricular tachycardia Multiple episodes of NSVT on Pacer Interrogation S/P ICD implantation POD #3 Continue amiodarone 200 mg twice a day Increase metoprolol to 25 mg daily, 12.5 mg in the evening Appreciate cardiology/EP input Monitor on telemetry Chest X ray showed no Pneumothorax Improved Continue current medications Needs follow up with Cardiology Upon discharge Acute Kidney Injury Likely due to diuretics Received gentle IV fluids given ischemic cardiomyopathy Monitor renal function Avoid nephrotoxic agents as able Resume home diuretics Abdominal pain --CT ABD:Mild dilatation of the proximal to mid appendix. However, no periappendiceal infiltration. Although not strongly suggestive, acute appendicitis cannot be excluded on this exam and correlation with right lower quadrant pain is recommended. If indicated, short-term follow-up CT is recommended with contrast. Mild pericholecystic infiltration without gallbladder distention. Findings could be correlated with right upper quadrant pain. No bowel obstruction. Colonic diverticulosis without evidence for acute diverticulitis. 2 cm hypodense focus within the lateral segment of the liver which is suboptimally assessed on this unenhanced exam. Focal fat is favored however a follow-up CT of the abdomen 6 months to ensure stability is recommended. --LFTs within normal limits --Appreciate surgery Input --Received IV Unasyn --Normal Procalcitonin levels --Transitioned to Augmentin Chronic anemia Hemoglobin at baseline Monitor DM Type II A1C: 8.7 in August 2019 Continue insulin therapy while hospitalized Monitor BGs Chronic systolic heart failure H/O Ischemic Cardiomyopathy EF 40 to 45%, TTE 2019 Monitor volume status Continue home diuretics H/O CAD 2018 Cath: Multivessel disease not amenable for PCI High risk for CABG Continue Plavix, metoprolol, pravastatin Sick Sinus Syndrome S/P PPM Monitor INR Continue amiodarone, metoprolol Continue Coumadin Hyperlipidemia on statin Hypothyroidism TSH Normal Continue levothyroxine DVT Px: Coumadin Code Status Full code Disposition PT/OT eval done Plan to discharge home today Total Time Total Time Spent Total Time Spent (In Minutes): 42 minutes Total Time Includes: Examination of the Patient, Discharge Planning, Medication Reconciliation, Communication With Other Providers and Other Discharge Plan Discharge Items Patient Disposition: Home - Self-Care Reason For Visit: SYNCOPE Discharge Diagnosis: Syncope Ventricular tachycardia Acute Kidney Injury Abdominal Pain Condition on Discharge: Fair Activity: Per Instructions section Exercise/Sports: Gradually increase as tolerated Non-emergency contact: Primary Care Provider and Panel Installer Call non-emergency contact if: you have any medication questions, your symptoms worsen, your pain is not controlled, your pain is worsening, your pain is unusual for you, your pain is concerning for you, your wound has increased redness, your wound has increased drainage and your wound pain has increased Follow-up/Referrals: Steve Quintero MD [Primary Care Provider] - Diet: Heart Healthy Addtl Attending Provider Instructions: Follow-up with your primary care physician on Oct 25 at 11:00AM Follow-up for ICD device check on October 31, 2019 at 10:00 AM Follow-up with your simonizer Kelby Dasilva PA-C on November 06, 2019 at 3 PM as scheduled (Beverley Hanna) Follow-up with Coumadin clinic, for management of Coumadin dosing and monitoring your PT/INR Complete antibiotic course Augmentin as prescribed Seek immediate medical attention if your symptoms reoccur or worsen Addtl Integrity Director Provider Instructions: ACTIVITY RECOMMENDATIONS: * Do not raise affected arm over head for 2 weeks. SPECIAL CARE INSTRUCTIONS: * If bleeding occurs, apply direct pressure to area for 5 minutes. * Call your doctor if you have severe pain, fever, drainage or bleeding at site. * Keep dressing on and dry for 48 hours then remove. * Keep any scheduled doctor's appointment. * Implant Card - hand held device with website information given. SKIN IRRITATION: * You may experience some redness and/or swelling in the area where radiation was administered. If any skin irritation occurs, please contact your family physician. FOLLOW UP VISIT: Keep any scheduled doctor appointments. Pending Studies at Discharge: No Stand-Alone Forms: My [employer], Smoking Cessation Medications and DC Order Prescriptions: New metoprolol succinate 25 mg Tablet Extended Release 24 Hr 12.5 mg PO HS Qty: 30 RF: 0 amoxicillin-pot clavulanate 500-125 mg Tablet 1 tab PO BIDM Qty: 5 RF: 0 Continued gabapentin [Neurontin] 300 mg capsule 300 mg PO HS Qty: 90 RF: 3 (DME) OneTouch Ultra Blue Test Strip strip See Dose Instructions .ROUTE .MEDSUPPLY Qty: 200 RF: 5 Lantus Solostar U-100 Insulin 100 unit/mL (3 mL) insulin pen 25 units SQ HS Qty: 15 RF: 5 pravastatin 40 mg tablet 40 mg PO HS Qty: 90 RF: 3 (DME) pen needle, diabetic [BD Mary 2nd Gen Pen Needle] 32 gauge x 5/32" needle See Dose Instructions .ROUTE .MEDSUPPLY Qty: 200 RF: 3 budesonide-formoterol 160-4.5 mcg/actuation HFA aerosol inhaler 2 puff Inhalation BID Qty: 10.2 RF: 5 clopidogrel 75 mg tablet 75 mg PO QAM Qty: 30 RF: 5 metoprolol succinate 25 mg tablet extended release 24 hr 25 mg PO QAM RF: 0 albuterol sulfate 90 mcg/actuation HFA aerosol inhaler 2 puff Inhalation QID PRN (Reason: Shortness Of Breath Or Wheezing) RF: 0 acetaminophen [Tylenol] 325 mg Tablet 325 mg PO Q6H PRN (Reason: Pain) RF: 0 torsemide 20 mg tablet 10 mg PO QAM RF: 0 amiodarone 200 mg tablet 200 mg PO BID RF: 0 spironolactone 25 mg tablet 12.5 mg PO MOWEFR RF: 0 levothyroxine 75 mcg tablet 75 mcg PO QAM RF: 0 polyethylene glycol 3350 [Miralax] 17 gram Powder In Packet 17 g PO DAILY 30 Days Qty: 30 RF: 2 warfarin 2.5 mg tablet 2.5 mg PO MOWEFRSA RF: 0 zafirlukast 20 mg tablet 20 mg PO BID RF: 0 escitalopram oxalate 10 mg Tablet 10 mg PO DAILY RF: 0 warfarin 2.5 mg Tablet 1.25 mg PO SUTUTH RF: 0 omeprazole 20 mg Capsule,Delayed Release(Dr/Ec) 20 mg PO QAM RF: 0 Discharge Orders: Discharge Order (Routine); Ordered 10/22/19 Ordered By: Tej Garcia/Other Patient Handouts: Discharge Instructions for Implantable Cardioverter-Defibrillator ICD, Metoprolol extended-release tablets, Amoxicillin Clavulanic Acid tablets Admission Data Admit Date/Time: 10/19/19 12:47 Attending Provider: Tej Zuniga Admit Provider: Oscar Shook Primary Care Provider: Steve Quintero Other Providers: Oscar Shook ; Yao Alcantar ; Karl Haley ; Guanakito Sommers Other Interventions: Discharge Summary Assessment (RN) Last Done: 10/22/19 14:10 DC Date/Time DO NOT enter until pt leaves facility: 10/22/19 16:09
[2019-10-22] MEDS ORDERED: WARFARIN SOD 5 MG TAB PO SCH (16:00)
== END 2019-10-22 16:09 | disposition home or self-care (01) | DRG 245 ==
LOC: 2E 20:53 → ED 20:53 → OBSVTOIN 10-18 00:26 → 2E 10-18 00:46

== ENCOUNTER 2019-11-30 12:49 | Inpatient (IN) ==
[2019-11-30 13:44] LABS: Basophils # (auto) 0.02 K/uL (0-0.2); Basophils % (auto) 0.2 %; Eosinophils # (auto) 0.31 K/uL (0-0.5); Eosinophils % (auto) 3.6 %; Hematocrit (blood only) 32.9 % (42-52); Hemoglobin 9.7 g/dL (14.0-18.0); Immature Granulocytes # (auto) 0.02 K/uL (0.00-0.02); Immature Granulocytes % (auto) 0.2 %; Lymphocytes # (auto) 1.02 K/uL (1.2-3.4); Lymphocytes % (auto) 11.9 %; Mean Corpuscular Hemoglobin 20.6 pg (25-34); Mean Corpuscular Hgb Conc 29.5 g/dL (32-36); Mean Platelet Volume 10.1 fL (7.4-10.4); Monocytes # (auto) 1.42 K/uL (0.11-0.59); Monocytes % (auto) 16.5 %; Neutrophils # (auto) 5.81 K/uL (1.4-6.5); Neutrophils % (auto) 67.6 %; Platelet Count 444 K/uL (130-400); RDW Standard Deviation 45.6 fL (36.4-46.3)
[2019-11-30 14:03] LABS: Hypochromasia Present; Microcytosis Present; Polychromasia 1+
[2019-11-30 14:09] LABS: Albumin Level 3.2 gm/dl (3.4-5.0); BUN Creatinine Ratio 19.1 (10-20); Calcium 8.5 mg/dl (8.5-10.1); Creatinine Clr Calc Pharmacy 33.9 ml/min; Est GFR (African American) 36.8; Est GFR (Non-African American) 31.7; Potassium 3.7 mmol/L (3.5-5.1)
[2019-11-30 14:12] LABS: Albumin Globulin Ratio 0.8 (0.9-2); Bilirubin,Total 1.2 mg/dl (0.2-1); Globulin 4.2 gm/dl (2.5-4.0); Total Protein 7.4 gm/dl (6.4-8.2)
[2019-11-30] MEDS ORDERED: SODIUM CHLORIDE 0.9% 500 ML IV ONE (14:43)
--- NOTE | 2019-11-30 14:50 | XRay Report ---
SINGLE VIEW CHEST CLINICAL HISTORY: Dyspnea. Fatigue. Hypotension. FINDINGS: An AP, portable, upright chest radiograph is compared to study dated 10/20/2019 and correlate d with chest CT dated 09/15/2019. The examination is degraded by portable technique and patient rotati on. A 3-lead cardiac AICD is unchanged in position and largely obscures the left mid chest. The cardi omediastinal silhouette is unremarkable. Atelectasis is present at the lung bases. No large pleural e ffusion or pneumothorax is seen. The skeletal structures are osteopenic. The bony thorax is grossly i ntact. IMPRESSION: 1. Cardiomegaly and AICD. There is no radiographic evidence of congestive failure. 2. No airspace consolidation or large pleural effusion is identified. ACT 112: Negative or not required by law. Electronically signed by: Osei Pyle M.D. 11/30/2019 2:49 PM
[2019-11-30 14:53] LABS: INR 2.6 (0.9-1.1); Partial Thromboplastin Ratio 1.6; Partial Thromboplastin Time 43.9 Seconds (21.0-31.0); Prothrombin Time 26.4 Seconds (9.0-12.0)
--- NOTE | 2019-11-30 15:17 | CT Scan Report ---
ABDOMEN AND PELVIS CT WITHOUT CONTRAST CT DOSE: 907.56 mGy.cm HISTORY: Generalized abdominal pain, elevated LFTs TECHNIQUE: Multiaxial CT images of the abdomen and pelvis were performed without contrast. A dose lo wering technique was utilized adhering to the principles of ALARA. COMPARISON STUDY: Abdomen and pelvis CT 10/18/2019. FINDINGS: Trace bilateral pleural effusions. The heart remains enlarged. Pacemaker wires are noted. P atchy groundglass densities within the lower lobes favor dependent change/atelectasis. This is simila r to the prior study. Right middle lobe and lingular densities likely represent scarring or atelectas is. No pneumoperitoneum. No pneumatosis. No suspicious lytic or blastic osseous lesions. Hyperdensity within the gallbladder may represent stones or sludge. An indeterminate 2.4 cm hypodense lesion with in the left hepatic lobe on image 118. Subtle nodular contour to the liver consistent with cirrhosis. Mild periportal edema/fat stranding is noted. This is likely due to the patient's diffuse edematous state. A few punctate calcified granulomas within the spleen. The unenhanced pancreas and adrenal gla nds are unremarkable. Calcifications within the left renal sinus are likely vascular. No renal or ure teral calculi. No hydronephrosis. Small amount of ascites which is new compared to the prior study. N o retroperitoneal lymphadenopathy. Moderate calcified plaque within the normal caliber abdominal aort a. The bladder is unremarkable. The prostate gland remains enlarged. Suboptimal evaluation for bowel pathology due to the lack of intravenous and oral contrast. However, there is no definite bowel wall thickening or obstruction. Stable appearance of the appendix. No evidence for acute appendicitis. IMPRESSION: 1. Subtle nodular contour to the liver consistent with cirrhosis. There is a small amount of ascites which is new compared the prior study. Fat stranding/edema at the periportal location is likely due t o the patient's diffuse edematous state rather than inflammatory change. 2. Hyperdensity within the gallbladder lumen favors sludge or small stones. No definite gallbladder w all thickening. Mild pericholecystic infiltration remains unchanged. 3. Trace bilateral pleural effusions. 4. A 2.4 cm hypodense lesion within the left hepatic lobe. This is increased in size compared to the prior study. This could represent focal fat. However, a dedicated contrast-enhanced liver MRI is negrito mmended to exclude a hepatic lesion. 5. No definite bowel wall thickening or obstruction. 6. Colonic diverticulosis. 7. Prostatomegaly. 8. Additional findings as described above. ACT 112: Positive. There are findings on this exam that require communication between the performing entity and the patient following Patient Test Result Information Act ([place] Act 112) guidelines. Electronically signed by: Silviano Vaughn M.D. 11/30/2019 3:16 PM
[2019-11-30 15:23] LABS: Lipase 73 U/L (73-393); Magnesium 2.3 mg/dl (1.8-2.4); Troponin I < 0.015 ng/ml (0-0.045)
[2019-11-30 16:10] LABS: Appearance Urine Cloudy (Clear); Bacteria Urine Automated Negative (Negative); Bilirubin Urine Negative (Negative); Blood Urine Negative (Negative); Color Urine Yellow; Epithelial Cell Urine Auto 0-5 /lpf (0-5); Glucose Urine UA Negative (Negative); Ketones Urine Negative (Negative); Leukocyte Esterase Urine Negative (Negative); Nitrite Urine Negative (Negative); Protein Urine Negative (Negative); RBC Urine Automated 0-4 /hpf (0-4); Specific Gravity Urine 1.012 (1.000-1.030); Urobilinogen Urine Negative (Negative)
[2019-11-30 17:27] LABS: Hepatitis B Surface Antigen Neg (Neg)
[2019-11-30 17:55] LABS: Hepatitis C IgG 13Yrs+Old_Rflx Neg (Neg)
--- NOTE | 2019-11-30 17:59 | Electrocardiogram Report ---
Test Reason : Blood Pressure : / mmHG Vent. Rate : 071 BPM Atrial Rate : 072 BPM P-R Int : 000 ms QRS Dur : 202 ms QT Int : 512 ms P-R-T Axes : 000 -75 101 degrees QTc Int : 556 ms Suspect unspecified pacemaker failure Likely paced atrial rhythm with very prolonged AV interval (although pacemaker malfunction cannot be excluded) Left anterior fascicular block Right bundle branch block Inferior infarct , age undetermined Anterolateral infarct (cited on or before 17-OCT-2019) Abnormal ECG When compared with ECG of 19-OCT-2019 16:25, AV delay is more prolonged Confirmed by Trevor Gonzalez ([id number]) on 11/30/2019 5:58:47 PM Referred By: Mar Mcgovern Confirmed By:Cleveland Gonzalez
--- NOTE | 2019-11-30 18:08 | CT Scan Report ---
CT OF THE HEAD WITHOUT CONTRAST CLINICAL HISTORY: encephalopathy COMPARISON STUDY: Head CT October 17, 2019. CT DOSE: 614.27 mGy.cm TECHNIQUE: Helical axial images of the head were obtained without IV contrast. Automated exposure con trol was utilized for the study. A dose lowering technique was utilized adhering to the principles o f ALARA. FINDINGS: No acute intracranial hemorrhage, midline shift or mass effect is present. Ventricular syst em is stable. The basilar cisterns are patent. There are no extra axial collections. Bilateral basal ganglia calcification is unchanged. There are no findings to suggest acute dural sinus thrombosis or acute territorial infarct. The appearance of the brain is unchanged. There is extensive intracranial vascular calcification. Postoperative findings within the sinuses are noted. Air-fluid level within t he left sphenoid sinus is noted. Aeration has improved since prior CT. There is moderate thickening w ithin the remainder of the sinuses. IMPRESSION: 1. No acute intracranial findings. 2. Paranasal sinus opacification, slightly improved since exam October 17, 2019. ACT 112: Negative or not required by law. Electronically signed by: Lee Delgado M.D. 11/30/2019 6:07 PM
[2019-11-30] MEDS ORDERED: ACETAMINOPHEN 325 MG TAB PO PRN (19:58)
[2019-11-30] MEDS ORDERED: ALBUTEROL HFA 8 GM INHALER INH PRN (19:58)
--- NOTE | 2019-11-30 20:10 | History & Physical Report ---
Date of Service November 30, 2019 Assessment & Plan (1) Weakness: Ambulatory dysfunction Present on admission with weakness, low energy and abdominal discomfort for the past week Mostly due to dehydration Will rule out any infection as well, will check blood cx CT head showed no acute intracranial abnormality PT/OT eval Fall precaution Acute kidney injury on CKD stage 3 Mostly due to dehydration from poor oral intake Creatinine on admission 1.9, baseline creatinine 1.4-1.5 received IVF in the ER, will continue gentle hydration Will hold spironolactone and torsemide for now Will avoid nephrotoxic agents Continue monitor BMP Abdominal discomfort Elevated Liver enzymes CT abd/pelvis showed hyperdensity within the gallbladder lumen favors sludge or small stones. Subtle nodular contour to the liver consistent with cirrhosis. There is a small amount of ascites which is new compared the prior study. Fat stranding/edema at the periportal location is likely due to the patient's diffuse edematous state rather than inflammatory change. On admission AST 59, ALT 103 and Alk 314 Outpatient Liver enzymes done yesterday with AST 76, ALT 101 and ALK 338 Will get liver U/S Will consult GI hepatitis panel pending Will avoid hepatotoxic agents Continue monitor LFTs Hepatic nodule CT abd/pelvis showed a 2.4 cm hypodense lesion within the left hepatic lobe. This is increased in size compared to the prior study. Consider liver MRI to r/o hepatic lesion. Hypotension Outpatient BP prior to send to the ER was 88/42 Mostly due to dehydration BP improved after received IVF No sign of infection Will check blood cx Cronic anemia Hemoglobin at baseline Monitor DM Type II A1C: 8.7 in August 2019 Glucose on admission 65 Will check Hba1c Will hold lantus for now due to poor appetite and low BS Will start on novolog sliding scale Monitor BGs Chronic systolic heart failure H/O Ischemic Cardiomyopathy EF 40 to 45%, TTE 2019 Monitor volume status Will hold diuretic due to elevate creatinine H/O CAD 2018 Cath: Multivessel disease not amenable for PCI High risk for CABG Continue Plavix, metoprolol Will hold pravastatin due to elevate LFT Sick Sinus Syndrome P. Afib S/P PPM INR 2.6 today Continue amiodarone, metoprolol Continue Coumadin 1.25 mg Hyperlipidemia Will hold statin due to elevate LFT Will resume on discharge Hypothyroidism TSH Normal Continue levothyroxine DVT Px: Coumadin with INR therapeutic Code Status DNR as per patient wishes (discussed with patient with son as bedside) Admission and Anticipated Discharge Date Admission Date: November 30, 2019 History of Present Illness Chief Complaint: Not feeling good Primary Care Provider: Steve Quintero MD 79 years old male with past medical history of anxiety, depression, type 2 diabetes, dyslipidemia, Tena thyroiditis, COPD, paroxysmal A. fib, hypertension, CAD, chronic heart failure with reduced ejection fraction, sick sinus syndrome status post pacemaker presented to the ER with vague symptoms. Patient was seen by [facility] at home provider today that sent him to the ER for eval after he said that he was not feeling well. His BP at home was 88/42. patient said for the past week he has been feeling very weak with low energy. He said that he feels so weak that his arms fell so heavy. Patient said that any little exertion that he runs out of breath. He said that he has been having abdominal discomfort and nausea. His appetite has been very poor. He said that after he eats or has a bowel movement his abdominal discomfort improved. He said that his gait has been very unsteady. Denies any falls, palpitation, chest pain, fever, diarrhea, vomiting and dizziness. Allergies Allergy/AdvReac Type Severity Reaction Status Date / Time aspirin Allergy Unknown DOES NOT Verified 10/17/19 23:24 TAKE D/T ASTHMA citric acid AdvReac Unknown Verified 10/17/19 23:24 [From [facility]] NSAIDS (Non-Steroidal AdvReac Unknown Verified 10/17/19 23:24 Anti-Inflamma sodium bicarbonate AdvReac Unknown Verified 10/17/19 23:24 [From [facility]] Home Medications Home Medications Medication Instructions Recorded Confirmed Type albuterol sulfate 2 puff INHALATION QID PRN 01/30/18 10/17/19 History metoprolol succinate 25 mg PO QAM 01/30/18 10/17/19 History omeprazole 20 mg PO QAM 07/25/18 10/17/19 History gabapentin 300 mg capsule 300 mg PO HS #90 cap 11/10/18 10/17/19 Rx acetaminophen [Tylenol] 325 mg PO Q6H PRN 11/23/18 10/17/19 History blood sugar diagnostic #200 ea 12/04/18 12/25/18 Rx insulin glargine 100 unit/mL (3 25 units SQ HS #15 ml 01/17/19 10/17/19 Rx mL) subcutaneous pen amiodarone 200 mg PO BID 02/20/19 10/17/19 History levothyroxine 75 mcg PO QAM 02/20/19 10/17/19 History spironolactone 12.5 mg PO MOWEFR 02/20/19 10/17/19 History torsemide 10 mg PO QAM 02/20/19 10/17/19 History polyethylene glycol 3350 [Miralax] 17 g PO DAILY 30 Days #30 ea 02/24/19 10/17/19 Rx pravastatin 40 mg tablet 40 mg PO HS #90 tab 05/07/19 10/17/19 Rx pen needle, diabetic 32 gauge x #200 ea 05/28/19 Rx " budesonide-formoterol HFA 160 2 puff INHALATION BID #10.2 gm 05/31/19 10/17/19 Rx mcg-4.5 mcg/actuation aerosol inhaler clopidogrel 75 mg tablet 75 mg PO QAM #30 tab 08/01/19 10/17/19 Rx escitalopram oxalate 10 mg PO DAILY 09/09/19 10/17/19 History warfarin 1.25 mg PO SUTUTH 09/09/19 10/17/19 History warfarin 2.5 mg PO MOWEFRSA 09/09/19 10/17/19 History zafirlukast 20 mg PO BID 09/09/19 10/17/19 History amoxicillin-pot clavulanate 1 tab PO BIDM #5 tab 10/22/19 Rx metoprolol succinate 12.5 mg PO HS #30 tab 10/22/19 Rx Past Med/Surg History Medical History Adrenal insufficiency Anxiety Asthma Atrial fibrillation with RVR BPH (benign prostatic hyperplasia) Chronic renal insufficiency Combined systolic and diastolic congestive heart failure Coronary artery disease multi-vessel disease - medical management Depression Diabetic neuropathy GERD (gastroesophageal reflux disease) Tena's thyroiditis History of non-ST elevation myocardial infarction (NSTEMI) Hyperlipidemia Hypertension Mural thrombus of heart Noted on echo November 2018 Pacemaker dual chamber Paroxysmal atrial tachycardia Polymyalgia rheumatica Sick sinus syndrome Type 2 diabetes mellitus Vitamin D deficiency Surgical History History of temporal artery biopsy Family History Father Stroke Other Family history non-contributory Social History Smoking Status: Never smoker Tobacco Type: Cigarettes Second Hand Exposure: No; Hx Alcohol Use: Yes Alcohol type: beer Hx Substance Use: No Preferred Language: Croatian Communication Ability: Effective Social Science Teacher Required: No Beliefs That Will Affect Care: None marital status: Unknown Current Living Situation: Family Current Living Situation Comment: DAUGHTER AND HER Other Information That Helps Us Care for You: No Feels Safe at Home: Yes Safety Concerns: Feels Safe At This Time caffeine: Yes Seatbelt Use: always Review of Systems Review of Systems: All systems reviewed & are unremarkable except as noted in HPI & below Physical Exam Physical Exam: General Appearance:Elderly, no apparent distress Head: normocephalic, Atraumatic Eyes: normal inspection, EOMI Neck: supple, Trachea midline Respiratory/Chest: Normal breath sounds, CTA Cardiovascular: S1, S2, No murmur Abdomen/GI:+BS, +tenderness with deep palpation Extremities: no edema, No calf tenderness Neurologic/Psych:AAOX3, grossly no focal neurological deficits Skin: normal color, warm Results & Data Results & Data ([facility]) Vital Signs (Past 12 Hours) Vital Signs Temp Pulse Pulse Resp BP BP Pulse Ox 11/30/19 19:38 70 11/30/19 19:23 36.9 C 70 18 125/73 97 11/30/19 18:27 70 16 160/86 H 100 11/30/19 17:30 70 21 120/73 99 11/30/19 17:00 71 15 134/77 100 11/30/19 16:30 70 20 136/77 98 11/30/19 16:00 70 23 135/81 100 11/30/19 15:43 99 11/30/19 15:30 71 21 123/68 99 11/30/19 13:31 70 22 130/82 98 11/30/19 13:12 36.5 C 71 17 111/[address] OF THE HEAD WITHOUT CONTRAST CLINICAL HISTORY: encephalopathy COMPARISON STUDY: Head CT October 17, 2019. CT DOSE: 614.27 mGy.cm TECHNIQUE: Helical axial images of the head were obtained without IV contrast. Automated exposure control was utilized for the study. A dose lowering technique was utilized adhering to the principles of ALARA. FINDINGS: No acute intracranial hemorrhage, midline shift or mass effect is present. Ventricular system is stable. The basilar cisterns are patent. There are no extra axial collections. Bilateral basal ganglia calcification is unchanged. There are no findings to suggest acute dural sinus thrombosis or acute territorial infarct. The appearance of the brain is unchanged. There is extensive intracranial vascular calcification. Postoperative findings within the sinuses are noted. Air-fluid level within the left sphenoid sinus is noted. Aeration has improved since prior CT. There is moderate thickening within the remainder of the sinuses. IMPRESSION: 1. No acute intracranial findings. 2. Paranasal sinus opacification, slightly improved since exam October 17, 2019. ACT 112: Negative or not required by law. Electronically signed by: Lee Delgado M.D. 11/30/2019 6:07 PM Dictated: 11/30/191803 Transcribed: 11/30/191803 SINGLE VIEW CHEST CLINICAL HISTORY: Dyspnea. Fatigue. Hypotension. FINDINGS: An AP, portable, upright chest radiograph is compared to study dated 10/20/2019 and correlated with chest CT dated 09/15/2019. The examination is degraded by portable technique and patient rotation. A 3-lead cardiac AICD is unchanged in position and largely obscures the left mid chest. The cardiomediastinal silhouette is unremarkable. Atelectasis is present at the lung bases. No large pleural effusion or pneumothorax is seen. The skeletal structures are osteopenic. The bony thorax is grossly intact. IMPRESSION: 1. Cardiomegaly and AICD. There is no radiographic evidence of congestive failure. 2. No airspace consolidation or large pleural effusion is identified. ACT 112: Negative or not required by law. Electronically signed by: Osei Pyle M.D. 11/30/2019 2:49 PM Dictated: 11/30/19 1446 Transcribed: 11/30/[address] WITHOUT CONTRAST CT DOSE: 907.56 mGy.cm HISTORY: Generalized abdominal pain, elevated LFTs TECHNIQUE: Multiaxial CT images of the abdomen and pelvis were performed without contrast. A dose lowering technique was utilized adhering to the principles of ALARA. COMPARISON STUDY: Abdomen and pelvis CT 10/18/2019. FINDINGS: Trace bilateral pleural effusions. The heart remains enlarged. Pacemaker wires are noted. Patchy groundglass densities within the lower lobes favor dependent change/atelectasis. This is similar to the prior study. Right middle lobe and lingular densities likely represent scarring or atelectasis. No pneumoperitoneum. No pneumatosis. No suspicious lytic or blastic osseous lesions. Hyperdensity within the gallbladder may represent stones or sludge. An indeterminate 2.4 cm hypodense lesion within the left hepatic lobe on image 118. Subtle nodular contour to the liver consistent with cirrhosis. Mild periportal edema/fat stranding is noted. This is likely due to the patient's diffuse edematous state. A few punctate calcified granulomas within the spleen. The unenhanced pancreas and adrenal glands are unremarkable. Calcifications within the left renal sinus are likely vascular. No renal or ureteral calculi. No hydronephrosis. Small amount of ascites which is new compared to the prior study. No retroperitoneal lymphadenopathy. Moderate calcified plaque within the normal caliber abdominal aorta. The bladder is unremarkable. The prostate gland remains enlarged. Suboptimal evaluation for bowel pathology due to the lack of intravenous and oral contrast. However, there is no definite bowel wall thickening or obstruction. Stable appearance of the appendix. No evidence for acute appendicitis. IMPRESSION: 1. Subtle nodular contour to the liver consistent with cirrhosis. There is a small amount of ascites which is new compared the prior study. Fat stranding/edema at the periportal location is likely due to the patient's diffuse edematous state rather than inflammatory change. 2. Hyperdensity within the gallbladder lumen favors sludge or small stones. No definite gallbladder wall thickening. Mild pericholecystic infiltration remains unchanged. 3. Trace bilateral pleural effusions. 4. A 2.4 cm hypodense lesion within the left hepatic lobe. This is increased in size compared to the prior study. This could represent focal fat. However, a dedicated contrast-enhanced liver MRI is recommended to exclude a hepatic lesion. 5. No definite bowel wall thickening or obstruction. 6. Colonic diverticulosis. 7. Prostatomegaly. 8. Additional findings as described above. ACT 112: Positive. There are findings on this exam that require communication between the performing entity and the patient following Patient Test Result Information Act ([place] Act 112) guidelines. Electronically signed by: Silviano Vaughn M.D. 11/30/2019 3:16 PM Dictated: 11/30/19 1504 Transcribed: 11/30/19 1504
[2019-11-30] MEDS ORDERED: WARFARIN SOD 1.25 MG TAB PO SCH (20:30)
[2019-11-30] MEDS ORDERED: SODIUM CHLORIDE 0.9% 1000ML 1,000 ML IV SCH (20:45)
--- NOTE | 2019-11-30 20:50 | Emergency Department Note ---
Impression & Plan Chronic renal insufficiency, Ischemic cardiomyopathy, Transaminitis, Generalized weakness ED Provider Note NAME: BARBARA NAVARRO AGE: 79 SEX: M ARRIVES VIA: Walk-In INFORMANT: Patient, ED PROVIDER(S): Judd Davalos MD CHIEF COMPLAINT: Weakness, referred. PLAN: Disposition: Admit MEDICAL DECISION MAKING: The patient is a pleasant 79 y/o gentleman with a complicated pmhx of ICM/systolic HF, CAD, SSS s/p PPM on Coumadin, h/o NSVT s/p AICD upgrade on 10/19/2019, HTN, HLD, IDDM2, hypothyroidism, anema, PMR/adrenal insufficiency who presents to the emergency department from pcp's office after noted to be hypotensive on visit per HPI. Patient reports feeling generalized weakness, decreased appetite and increased confusion over the past several weeks. Reports decreased appetite and oral intake. Denies abdominal pain but endorses bloatedn ess. Denies cough congestion, CP, SOB, vomiting, diarrhea. On arrival the patient is chronically ill appearing but in NAD, AFVSS. EKG paced without overt acute ischemia. CXR negative for acute process. ICD interrogation without concerning events. WBC within normal limits. H/H9 0.7/32.9 similar to prior value, platelets 444, nonspecific. INR therapeutic at 2.6, creatinine 1.9 increased from prior. LFTs slightly elevated new from prior. Troponin negative/undetectable. CT abd pelvis demonstrates new evidence of cirrhosis. CT head negative for acute process. Given patient's worsening renal function, with new evidence of cirrhosis, reasonable to admit for further management. Patient and daughter at bedside are agreeable. Resident Dr. Nancy River, discussed case with Dr. Bui, [facility] hospitalist, who will evaluate the patient for admission. This patient was managed with the assistance of resident, Dr. Nancy River. I discussed the case with the resident, examined the patient, and confirm the findings and plan as documented in this note. Triage Nursing notes reviewed and agree them. Prior medical records reviewed Vital Signs: reviewed and remarkable for no significant abnormalities Differential diagnosis: Infection, dehydration, metabolic abnormality, hypo/hyperglycemia, electrolyte disturbance, anemia, hypoxia, cardiac sources, intracerebral event, toxicologic, neurologic, as well as other pathologies. ER treatment provided: See below. Diagnostics interpreted by me: ECG: Paced, 71 bpm, no ectopy, no overt acute ischemia. Cardiac Monitoring: An order for continuous cardiac monitoring was placed and demonstrated pace rhythm, 71 bpm, no ectopy. Laboratory studies: See below Imaging studies: CT OF THE HEAD WITHOUT CONTRAST CLINICAL HISTORY: encephalopathy COMPARISON STUDY: Head CT October 17, 2019. CT DOSE: 614.27 mGy.cm TECHNIQUE: Helical axial images of the head were obtained without IV contrast. Automated exposure control was utilized for the study. A dose lowering technique was utilized adhering to the principles of ALARA. FINDINGS: No acute intracranial hemorrhage, midline shift or mass effect is present. Ventricular system is stable. The basilar cisterns are patent. There are no extra axial collections. Bilateral basal ganglia calcification is unchanged. There are no findings to suggest acute dural sinus thrombosis or acute territorial infarct. The appearance of the brain is unchanged. There is extensive intracranial vascular calcification. Postoperative findings within the sinuses are noted. Air-fluid level within the left sphenoid sinus is noted. Aeration has improved since prior CT. There is moderate thickening within the remainder of the sinuses. IMPRESSION: 1. No acute intracranial findings. 2. Paranasal sinus opacification, slightly improved since exam October 17, 2019. SINGLE VIEW CHEST CLINICAL HISTORY: Dyspnea. Fatigue. Hypotension. FINDINGS: An AP, portable, upright chest radiograph is compared to study dated 10/20/2019 and correlated with chest CT dated 09/15/2019. The examination is degraded by portable technique and patient rotation. A 3-lead cardiac AICD is unchanged in position and largely obscures the left mid chest. The cardiomediastinal silhouette is unremarkable. Atelectasis is present at the lung bases. No large pleural effusion or pneumothorax is seen. The skeletal structures are osteopenic. The bony thorax is grossly intact. IMPRESSION: 1. Cardiomegaly and AICD. There is no radiographic evidence of congestive failure. 2. No airspace consolidation or large pleural effusion is identified. ACT 112: Negative or not required by law. ABDOMEN AND PELVIS CT WITHOUT CONTRAST CT DOSE: 907.56 mGy.cm HISTORY: Generalized abdominal pain, elevated LFTs TECHNIQUE: Multiaxial CT images of the abdomen and pelvis were performed without contrast. A dose lowering technique was utilized adhering to the principles of ALARA. COMPARISON STUDY: Abdomen and pelvis CT 10/18/2019. FINDINGS: Trace bilateral pleural effusions. The heart remains enlarged. Pac emaker wires are noted. Patchy groundglass densities within the lower lobes favor dependent change/atelectasis. This is similar to the prior study. Right middle lobe and lingular densities likely represent scarring or atelectasis. No pneumoperitoneum. No pneumatosis. No suspicious lytic or blastic osseous lesions. Hyperdensity within the gallbladder may represent stones or sludge. An indeterminate 2.4 cm hypodense lesion within the left hepatic lobe on image 118. Subtle nodular contour to the liver consistent with cirrhosis. Mild periportal edema/fat stranding is noted. This is likely due to the patient's diffuse edematous state. A few punctate calcified granulomas within the spleen. The une nhanced pancreas and adrenal glands are unremarkable. Calcifications within the left renal sinus are likely vascular. No renal or ureteral calculi. No hydronephrosis. Small amount of ascites which is new compared to the prior study. No retroperitoneal lymphadenopathy. Moderate calcified plaque within the normal caliber abdominal aorta. The bladder is unremarkable. The prostate gland remains enlarged. Suboptimal evaluation for bowel pathology due to the lack of intravenous and oral contrast. However, there is no definite bowel wall thickening or obstruction. Stable appearance of the appendix. No evidence for acute appendicitis. IMPRESSION: 1. Subtle nodular contour to the liver consistent with cirrhosis. There is a small amount of ascites which is new compared the prior study. Fat strandi ng/edema at the periportal location is likely due to the patient's diffuse edematous state rather than inflammatory change. 2. Hyperdensity within the gallbladder lumen favors sludge or small stones. No definite gallbladder wall thickening. Mild pericholecystic infiltration remains unchanged. 3. Trace bilateral pleural effusions. 4. A 2.4 cm hypodense lesion within the left hepatic lobe. This is increased in size compared to the prior study. This could represent focal fat. However, a dedicated contrast-enhanced liver MRI is recommended to exclude a hepatic lesion. 5. No definite bowel wall thickening or obstruction. 6. Colonic diverticulosis. 7. Prostatomegaly. 8. Additional findings as described above. Consultation(s): Case was discussed with Dr. Bui, [facility] Hospitalist, who will evaluate the patient for admission. HPI: The patient is a pleasant 79 y/o gentleman with a complicated pmhx of ICM/systolic HF, CAD, SSS s/p PPM on Coumadin, h/o NSVT s/p AICD upgrade on 10/19/2019, HTN, HLD, IDDM2, hypothyroidism, anema, PMR/adrenal insufficiency who presents to the emergency department from pcp's office after noted to be hypotensive on visit per HPI. Patient reports feeling generalized weakness, decreased appetite and increased confusion over the past several weeks. Reports decreased appetite and oral intake. Denies abdominal pain but endorses bloatedness. Denies cough congestion, CP, SOB, vomiting, diarrhea. ROS: See above HPI for pertinent positives & negatives. A total of 10 systems reviewed and were otherwise negative. PAST MEDICAL HISTORY:See Below PAST SURGICAL HISTORY:See Below FAMILY HISTORY:See Below SOCIAL HISTORY:See Below HOME MEDICATIONS:See Below ALLERGIES:See Below VITALS:See Below PHYSICAL EXAMINATION: GENERAL: Awake, alert, chronically ill-appearing, in no distress HENT: Normocephalic, atraumatic. Oropharynx unremarkable. EYES: Normal conjunctiva. Sclera non-icteric. NECK: Supple. No nuchal rigidity. FROM. No JVD. RESPIRATORY: Clear to auscultation. CARDIAC: Regular rate, normal rhythm. Extremities warm and well perfused. Pulses equal. ABDOMEN: Soft, non-distended. No tenderness to palpation. No rebound or guarding. No masses. RECTAL: Deferred. MUSCULOSKELETAL: Chest examination reveals no tenderness. The back is symmetrical on inspection without obvious abnormality. There is no CVA tenderness to palpation. No joint edema. LOWER EXTREMITIES: Calves are equal size bilaterally and non-tender. No edema. No discoloration. NEURO: Normal sensorium. No sensory or motor deficits noted. SKIN: No rash or jaundice noted. Judd Davalos MD Past Med/Surg History Medical History Adrenal insufficiency Anxiety Asthma Atrial fibrillation with RVR BPH (benign prostatic hyperplasia) Chronic renal insufficiency Combined systolic and diastolic congestive heart failure Coronary artery disease multi-vessel disease - medical management Depression Diabetic neuropathy GERD (gastroesophageal reflux disease) Tena's thyroiditis History of non-ST elevation myocardial infarction (NSTEMI) Hyperlipidemia Hypertension Mural thrombus of heart Noted on echo November 2018 Pacemaker dual chamber Paroxysmal atrial tachycardia Polymyalgia rheumatica Sick sinus syndrome Type 2 diabetes mellitus Vitamin D deficiency Surgical History History of temporal artery biopsy Family History Father Stroke Other Family history non-contributory Social History Smoking Status: Never smoker Tobacco Type: Cigarettes Second Hand Exposure: No; Hx Alcohol Use: Yes Alcohol type: beer Hx Substance Use: No Preferred Language: Tongan Communication Ability: Effective Insole And Heel Stiffener Required: No Beliefs That Will Affect Care: None marital status: Unknown Current Living Situation: Family Current Living Situation Comment: DAUGHTER AND HER Other Information That Helps Us Care for You: No Feels Safe at Home: Yes Safety Concerns: Feels Safe At This Time caffeine: Yes Seatbelt Use: always Allergies Allergies Allergy/AdvReac Type Severity Reaction Status Date / Time aspirin Allergy Unknown DOES NOT Verified 10/17/19 23:24 TAKE D/T ASTHMA citric acid AdvReac Unknown Verified 10/17/19 23:24 [From [facility]] NSAIDS (Non-Steroidal AdvReac Unknown Verified 10/17/19 23:24 Anti-Inflamma sodium bicarbonate AdvReac Unknown Verified 10/17/19 23:24 [From [facility]] Home Meds Home Medications Medication Instructions Recorded Confirmed albuterol sulfate 2 puff INHALATION QID PRN 01/30/18 10/17/19 metoprolol succinate 25 mg PO QAM 01/30/18 10/17/19 omeprazole 20 mg PO QAM 07/25/18 10/17/19 acetaminophen [Tylenol] 325 mg PO Q6H PRN 11/23/18 10/17/19 amiodarone 200 mg PO BID 02/20/19 10/17/19 levothyroxine 75 mcg PO QAM 02/20/19 10/17/19 spironolactone 12.5 mg PO MOWEFR 02/20/19 10/17/19 torsemide 10 mg PO QAM 02/20/19 10/17/19 escitalopram oxalate 10 mg PO DAILY 09/09/19 10/17/19 warfarin 1.25 mg PO SUTUTH 09/09/19 10/17/19 warfarin 2.5 mg PO MOWEFRSA 09/09/19 10/17/19 zafirlukast 20 mg PO BID 09/09/19 10/17/19 Previous Rx's Medication Instructions Recorded gabapentin 300 mg capsule 300 mg PO HS #90 cap 11/10/18 blood sugar diagnostic #200 ea 12/04/18 insulin glargine 100 unit/mL (3 25 units SQ HS #15 ml 01/17/19 mL) subcutaneous pen polyethylene glycol 3350 [Miralax] 17 g PO DAILY 30 Days #30 ea 02/24/19 pravastatin 40 mg tablet 40 mg PO HS #90 tab 05/07/19 pen needle, diabetic 32 gauge x #200 ea 05/28/19" budesonide-formoterol HFA 160 2 puff INHALATION BID #10.2 gm 05/31/19 mcg-4.5 mcg/actuation aerosol inhaler clopidogrel 75 mg tablet 75 mg PO QAM #30 tab 08/01/19 amoxicillin-pot clavulanate 1 tab PO BIDM #5 tab 10/22/19 metoprolol succinate 12.5 mg PO HS #30 tab 10/22/19 Results & Data (ED) Vital Signs Vital Signs - 24 hr 11/30/19 13:12 11/30/19 13:31 11/30/19 15:30 Temperature 36.5 C Temperature Source Oral Pulse Rate 71 71 Pulse Rate [Left Finger] 70 Pulse Rate from SpO2 Sensor 71 Respiratory Rate 17 22 21 Blood Pressure 111/67 123/68 Blood Pressure [Left Arm] 130/82 Blood Pressure Mean 81 88 Blood Pressure Mean [Left Arm] 98 Pulse Oximetry 96 98 99 Oxygen Delivery Method Room Air Sepsis Recent Fever Within 48 Hours No Sepsis New/Unexplained Change in Mental Status N/A Sepsis Action Taken by Nursing No Action Required 11/30/19 15:43 11/30/19 16:00 11/30/19 16:30 Temperature Temperature Source Pulse Rate 70 70 Pulse Rate [Left Finger] Pulse Rate from SpO2 Sensor 69 Respiratory Rate 23 20 Blood Pressure 135/81 136/77 Blood Pressure [Left Arm] Blood Pressure Mean 102 102 Blood Pressure Mean [Left Arm] Pulse Oximetry 99 100 98 Oxygen Delivery Method Room Air Sepsis Recent Fever Within 48 Hours Sepsis New/Unexplained Change in Mental Status Sepsis Action Taken by Nursing 11/30/19 17:00 11/30/19 17:30 Temperature Temperature Source Pulse Rate 71 70 Pulse Rate [Left Finger] Pulse Rate from SpO2 Sensor Respiratory Rate 15 21 Blood Pressure 134/77 120/73 Blood Pressure [Left Arm] Blood Pressure Mean 94 95 Blood Pressure Mean [Left Arm] Pulse Oximetry 100 99 Oxygen Delivery Method Sepsis Recent Fever Within 48 Hours Sepsis New/Unexplained Change in Mental Status Sepsis Action Taken by Nursing Laboratory Data Attestation: I reviewed the patient's lab results. Result diagrams: 11/30/19 13:30 11/30/19 13:30 Lab Results 11/30/19 11/30/19 11/30/19 Range/Units 13:30 13:30 13:30 WBC 8.60 (4.8-10.8) K/uL RBC 4.70 (4.7-6.1) M/uL Hgb 9.7 L (14.0-18.0) g/dL Hct 32.9 L (42-52) % MCV 70.0 L (80-100) fL MCH 20.6 L (25-34) pg MCHC 29.5 L (32-36) g/dL RDW Std Deviation 45.6 (36.4-46.3) fL RDW Coeff of Andrew 18.0 H (11.5-14.5) % Plt Count 444 H (130-400) K/uL MPV 10.1 (7.4-10.4) fL Immature Gran % (Auto) 0.2 % Neut % (Auto) 67.6 % Lymph % (Auto) 11.9 % Bertie % (Auto) 16.5 % Eos % (Auto) 3.6 % Baso % (Auto) 0.2 % Neut # (Auto) 5.81 (1.4-6.5) K/uL Lymph # (Auto) 1.02 L (1.2-3.4) K/uL Bertie # (Auto) 1.42 H (0.11-0.59) K/uL Eos # (Auto) 0.31 (0-0.5) K/uL Baso # (Auto) 0.02 (0-0.2) K/uL Immature Gran # (Auto) 0.02 (0.00-0.02) K/uL Polychromasia 1+ Hypochromasia Present Microcytosis Present PT 26.4 H (9.0-12.0) Seconds INR 2.6 H (0.9-1.1) APTT 43.9 H (21.0-31.0) Seconds PTT Ratio 1.6 Sodium 140 (136-145) mmol/L Potassium 3.7 (3.5-5.1) mmol/L Chloride 106 (98-107) mmol/L Carbon Dioxide 23 (21-32) mmol/L Anion Gap 11.0 (3-11) BUN 37 H (7-18) mg/dl Creatinine 1.93 H (0.6-1.4) mg/dl Est Cr Clr Drug Dosing 33.9 ml/min Est GFR ( Amer) 36.8 Est GFR (Non-Af Amer) 31.7 BUN/Creatinine Ratio 19.1 (10-20) Glucose 65 L (70-99) mg/dl Lactate (0.4-2.0) mmol/L Calcium 8.5 (8.5-10.1) mg/dl Magnesium (1.8-2.4) mg/dl Total Bilirubin 1.2 H (0.2-1) mg/dl AST 59 H (15-37) U/L ALT 103 H (12-78) U/L Alkaline Phosphatase 314 H (45-117) U/L Troponin I (0-0.045) ng/ml Total Protein 7.4 (6.4-8.2) gm/dl Albumin 3.2 L (3.4-5.0) gm/dl Globulin 4.2 H (2.5-4.0) gm/dl Albumin/Globulin Ratio 0.8 L (0.9-2) Lipase (73-393) U/L Procalcitonin (0-0.5) ng/ml Urine Color Urine Appearance (Clear) Urine pH (4.5-7.5) Ur Specific [place] (1.000-1.030) Urine Protein (Negative) Urine Glucose (UA) (Negative) Urine Ketones (Negative) Urine Blood (Negative) Urine Nitrite (Negative) Urine Bilirubin (Negative) Urine Urobilinogen (Negative) Ur Leukocyte Esterase (Negative) Urine WBC (Auto) (0-5) /hpf Urine RBC (Auto) (0-4) /hpf U Hyaline Cast (Auto) (0-5) /lpf U Epithel Cells (Auto) (0-5) /lpf Urine Bacteria (Auto) (Negative) Hep Bs Antigen (Neg) Hepatitis C Antibody (Neg) 11/30/19 11/30/19 11/30/19 Range/Units 13:30 13:30 14:33 WBC (4.8-10.8) K/uL RBC (4.7-6.1) M/uL Hgb (14.0-18.0) g/dL Hct (42-52) % MCV (80-100) fL MCH (25-34) pg MCHC (32-36) g/dL RDW Std Deviation (36.4-46.3) fL RDW Coeff of Andrew (11.5-14.5) % Plt Count (130-400) K/uL MPV (7.4-10.4) fL Immature Gran % (Auto) % Neut % (Auto) % Lymph % (Auto) % Bertie % (Auto) % Eos % (Auto) % Baso % (Auto) % Neut # (Auto) (1.4-6.5) K/uL Lymph # (Auto) (1.2-3.4) K/uL Bertie # (Auto) (0.11-0.59) K/uL Eos # (Auto) (0-0.5) K/uL Baso # (Auto) (0-0.2) K/uL Immature Gran # (Auto) (0.00-0.02) K/uL Polychromasia Hypochromasia Microcytosis PT (9.0-12.0) Seconds INR (0.9-1.1) APTT (21.0-31.0) Seconds PTT Ratio Sodium (136-145) mmol/L Potassium (3.5-5.1) mmol/L Chloride (98-107) mmol/L Carbon Dioxide (21-32) mmol/L Anion Gap (3-11) BUN (7-18) mg/dl Creatinine (0.6-1.4) mg/dl Est Cr Clr Drug Dosing ml/min Est GFR ( Amer) Est GFR (Non-Af Amer) BUN/Creatinine Ratio (10-20) Glucose (70-99) mg/dl Lactate 1.5 (0.4-2.0) mmol/L Calcium (8.5-10.1) mg/dl Magnesium 2.3 (1.8-2.4) mg/dl Total Bilirubin (0.2-1) mg/dl AST (15-37) U/L ALT (12-78) U/L Alkaline Phosphatase (45-117) U/L Troponin I < 0.015 (0-0.045) ng/ml Total Protein (6.4-8.2) gm/dl Albumin (3.4-5.0) gm/dl Globulin (2.5-4.0) gm/dl Albumin/Globulin Ratio (0.9-2) Lipase 73 (73-393) U/L Procalcitonin 0.17 (0-0.5) ng/ml Urine Color Urine Appearance (Clear) Urine pH (4.5-7.5) Ur Specific [place] (1.000-1.030) Urine Protein (Negative) Urine Glucose (UA) (Negative) Urine Ketones (Negative) Urine Blood (Negative) Urine Nitrite (Negative) Urine Bilirubin (Negative) Urine Urobilinogen (Negative) Ur Leukocyte Esterase (Negative) Urine WBC (Auto) (0-5) /hpf Urine RBC (Auto) (0-4) /hpf U Hyaline Cast (Auto) (0-5) /lpf U Epithel Cells (Auto) (0-5) /lpf Urine Bacteria (Auto) (Negative) Hep Bs Antigen (Neg) Hepatitis C Antibody (Neg) 11/30/19 11/30/19 Range/Units 15:30 16:24 WBC (4.8-10.8) K/uL RBC (4.7-6.1) M/uL Hgb (14.0-18.0) g/dL Hct (42-52) % MCV (80-100) fL MCH (25-34) pg MCHC (32-36) g/dL RDW Std Deviation (36.4-46.3) fL RDW Coeff of Andrew (11.5-14.5) % Plt Count (130-400) K/uL MPV (7.4-10.4) fL Immature Gran % (Auto) % Neut % (Auto) % Lymph % (Auto) % Bertie % (Auto) % Eos % (Auto) % Baso % (Auto) % Neut # (Auto) (1.4-6.5) K/uL Lymph # (Auto) (1.2-3.4) K/uL Bertie # (Auto) (0.11-0.59) K/uL Eos # (Auto) (0-0.5) K/uL Baso # (Auto) (0-0.2) K/uL Immature Gran # (Auto) (0.00-0.02) K/uL Polychromasia Hypochromasia Microcytosis PT (9.0-12.0) Seconds INR (0.9-1.1) APTT (21.0-31.0) Seconds PTT Ratio Sodium (136-145) mmol/L Potassium (3.5-5.1) mmol/L Chloride (98-107) mmol/L Carbon Dioxide (21-32) mmol/L Anion Gap (3-11) BUN (7-18) mg/dl Creatinine (0.6-1.4) mg/dl Est Cr Clr Drug Dosing ml/min Est GFR ( Amer) Est GFR (Non-Af Amer) BUN/Creatinine Ratio (10-20) Glucose (70-99) mg/dl Lactate (0.4-2.0) mmol/L Calcium (8.5-10.1) mg/dl Magnesium (1.8-2.4) mg/dl Total Bilirubin (0.2-1) mg/dl AST (15-37) U/L ALT (12-78) U/L Alkaline Phosphatase (45-117) U/L Troponin I (0-0.045) ng/ml Total Protein (6.4-8.2) gm/dl Albumin (3.4-5.0) gm/dl Globulin (2.5-4.0) gm/dl Albumin/Globulin Ratio (0.9-2) Lipase (73-393) U/L Procalcitonin (0-0.5) ng/ml Urine Color Yellow Urine Appearance Cloudy A (Clear) Urine pH 5.0 (4.5-7.5) Ur Specific [place] 1.012 (1.000-1.030) Urine Protein Negative (Negative) Urine Glucose (UA) Negative (Negative) Urine Ketones Negative (Negative) Urine Blood Negative (Negative) Urine Nitrite Negative (Negative) Urine Bilirubin Negative (Negative) Urine Urobilinogen Negative (Negative) Ur Leukocyte Esterase Negative (Negative) Urine WBC (Auto) 1-5 (0-5) /hpf Urine RBC (Auto) 0-4 (0-4) /hpf U Hyaline Cast (Auto) 1-5 (0-5) /lpf U Epithel Cells (Auto) 0-5 (0-5) /lpf Urine Bacteria (Auto) Negative (Negative) Hep Bs Antigen Neg (Neg) Hepatitis C Antibody Neg (Neg) Administered Medications Amiodarone HCl (Amiodarone 200 Mg Tab) 200 mg PO BID KATHLEEN Stop: 12/30/19 20:59 Last Admin: 11/30/19 20:56 Dose: 200 mg Documented by: [id number] Gabapentin (Gabapentin 300 Mg Cap) [address] [facility] Stop: 12/30/19 20:59 Last Admin: 11/30/19 20:56 Dose: 300 mg Documented by: [id number] Sodium Chloride (Nss 1000ml) 1,000 mls @ 80 mls/hr IV .[id number] [facility] Stop: 12/30/19 20:44 Last Admin: 11/30/19 20:59 Dose: 80 mls/hr Documented by: [id number] Metoprolol Succinate (Metoprolol Succ 25mg Ext Rel Tab) 12.[address] [facility] Stop: 12/30/19 20:59 Last Admin: 11/30/19 20:56 Dose: 12.5 mg Documented by: [id number] Warfarin Sodium (Warfarin Sod 1.25 Mg Tab) 1.25 mg PO DAILY@1600 KATHLEEN Stop: 12/30/19 20:29 Last Admin: 11/30/19 21:42 Dose: 1.25 mg Documented by: [id number] Discontinued Medications Sodium Chloride (Nss) 500 mls @ 999 mls/hr IV .Q31M ONE Stop: 11/30/19 15:13 Last Infusion: 11/30/19 16:30 Dose: 0 mls/hr Documented by: [id number] Admin: 11/30/19 15:30 Dose: 999 mls/hr Documented by: [id number] Blood Pressure Blood Pressure Findings: Normal blood pressure Blood Pressure Disposition: further management by hospitalist Discharge Plan Visit Data Chief Complaint: Hypotension Stated Complaint: LOW BLOOD PRESSURE, NO ENERGY ED Provider: Judd Davalos ED Midlevel Provider: Nancy Thompson Problem: Chronic renal insufficiency, Ischemic cardiomyopathy, Transaminitis, Generalized weakness Patient Disposition: Admitted As Inpatient Discharge Instructions Interventions: ED Discharge Assessment Last Done: 11/30/19 18:48
[2019-11-30] MEDS ORDERED: GABAPENTIN 300 MG CAP PO SCH (21:00)
[2019-11-30] MEDS ORDERED: AMIODARONE 200 MG TAB PO SCH (21:00)
[2019-11-30] MEDS ORDERED: METOPROLOL SUCC 25MG EXT REL TAB PO SCH (21:00)
[2019-11-30] MEDS ORDERED: GLUCOSE 10 TABS/TUBE PO PRN (21:20)
[2019-11-30] MEDS ORDERED: GLUCAGON FOR INJ 1 MG VIAL SQ PRN (21:20)
[2019-11-30] MEDS ORDERED: CARBOHYDRATES FOR HYPOGLYCEMIA PO PRN (21:20)
[2019-11-30] MEDS ORDERED: GLUCOSE 40% GEL 15 GM TUBE PO PRN (21:20)
[2019-11-30] MEDS ORDERED: DEXTROSE 50% 50 ML SYRINGE IV PRN (21:20)
--- NOTE | 2019-12-01 01:17 | Death Pronouncement Note ---
Date of Service December 01, 2019 Pronouncement Note Admission Date Admission Date: November 30, 2019 Date and Time of Date of : 12/01/19 Time of : 01:03 PCOD Preliminary cause of : Respiratory failure Contributing Factors (1) Weakness: Contributing factors: Sudden cardiac hx Systolic CHF Hospital Course Hospital Course: Patient admitted 11/29 for ARF on CRI, generalized weakness, weakness, low blood pressure. Abnormal LFTs noted on admission. 11/29, 11 PM, patient noted to be short of breath on exertion upon coming out of the bathroom as per avionics supervisor. O2 sats 90s on 2 L. 11/30, 1 AM, patient noted to be asystolic on the monitor. CPR not initiated due to DNR CODE STATUS established on admission. Patient pronounced at 1:03 AM. Bill Peddler appropriately notified of patient demise given occurrence within 24 hours of admission. Patient daughter (Ms. Theresa Ortega) updated of unfortunate and unexpected events over the phone. Additional Data Confirmation of : no pulse, no respirations, no heart sounds and pupils fixed and dilated Family: contacted Attending/PCP notified?: Yes Attending physician: Mateo Bui MD Was code activated?: No Autopsy requested?: Yes school examiner notified?: Yes
--- NOTE | 2019-12-01 01:28 | Discharge Summary ---
Date of Service December 01, 2019 Admission HPI Per Admitting Provider 79 years old male with past medical history of anxiety, depression, type 2 diabetes, dyslipidemia, Tena thyroiditis, COPD, paroxysmal A. fib, hypertension, CAD, chronic heart failure with reduced ejection fraction, sick sinus syndrome status post pacemaker presented to the ER with vague symptoms. Patient was seen by [facility] at home provider today that sent him to the ER for eval after he said that he was not feeling well. His BP at home was 88/42. patient said for the past week he has been feeling very weak with low energy. He said that he feels so weak that his arms fell so heavy. Patient said that any little exertion that he runs out of breath. He said that he has been having abdominal discomfort and nausea. His appetite has been very poor. He said that after he eats or has a bowel movement his abdominal discomfort improved. He said that his gait has been very unsteady. Denies any falls, palpitation, chest pain, fever, diarrhea, vomiting and dizziness. Principal Diagnosis Respiratory failure Sudden cardiac Discharge Data Allergies Allergy/AdvReac Type Severity Reaction Status Date / Time aspirin Allergy Unknown DOES NOT Verified 10/17/19 23:24 TAKE D/T ASTHMA citric acid AdvReac Unknown Verified 10/17/19 23:24 [From Robina] NSAIDS (Non-Steroidal AdvReac Unknown Verified 10/17/19 23:24 Anti-Inflamma sodium bicarbonate AdvReac Unknown Verified 10/17/19 23:24 [From Robina] Consultations 11/30/19 17:01 ED Decision to Admit Stat 12/01/19 08:00 Consult Gastroenterology Routine Ordered Studies 11/30/19 14:01 CT abd pelvis wo con Stat 11/30/19 16:13 CT head/brain wo con Stat 11/30/19 19:18 US liver Routine Hospital Course (1) Respiratory failure: Patient admitted 11/29 for ARF on CRI, generalized weakness, weakness, low blood pressure. Abnormal LFTs noted on admission. 11/29, 11 PM, patient noted to be short of breath on exertion upon coming out of the bathroom as per clinical documentation nurse. O2 sats 90s on 2 L. 11/30, 1 AM, patient noted to be asystolic on the monitor. CPR not initiated due to DNR CODE STATUS established on admission. Patient pronounced at 1:03 AM. Medical Clerical Assistant appropriately notified of patient demise given occurrence within 24 hours of admission. Patient daughter (Ms. Theresa Ortega) updated of unfortunate and unexpected events over the phone. Total Time Total Time Spent Total Time Spent (In Minutes): 5 mins Total Time Includes: Other Discharge Plan Discharge Items Patient Disposition:
[2019-12-01] MEDS ORDERED: LEVOTHYROXINE SODIUM 75 MCG TABLET PO SCH (06:30)
[2019-12-01] MEDS ORDERED: INSULIN ASPART 100 UNITS/ML 3 ML PEN SC SCH (07:30)
[2019-12-01] MEDS ORDERED: FLUTICASONE/VILANTEROL 200/25MCG 14 PUFFS/INHALER INH SCH (09:00)
[2019-12-01] MEDS ORDERED: PANTOprazole 40 MG TAB PO SCH (09:00)
[2019-12-01] MEDS ORDERED: CLOPIDOGREL BISULFATE 75 MG TAB PO SCH (09:00)
[2019-12-01] MEDS ORDERED: ESCITALOPRAM OXALATE 10 MG TAB PO SCH (09:00)
[2019-12-01] MEDS ORDERED: POLYETHYLENE (MIRALAX) 17 GM PACK PO SCH (09:00)
[2019-12-01] MEDS ORDERED: METOPROLOL SUCC 25MG EXT REL TAB PO SCH (09:00)
[2019-12-02 05:37] LABS: Hepatitis A Antibody IgM NON-REACTIVE (NON-REACTIVE); Hepatitis B Core Antibody IgM NON-REACTIVE (NON-REACTIVE)
== END 2019-12-01 01:03 | disposition expired | DRG 682 ==
LOC: ED 12:49 → 2W 17:47